=== PATIENT | female | born 1960 | race Caucasian/White ===

== ENCOUNTER → 2018-04-28 13:16 | Outpatient (CLI) | payer OTHER, SELFPAY ==
[2018-04-27 14:50] VITALS: BMI 36.1
--- NOTE | 2018-04-28 13:22 | RAD_ITS ---
STUDY: X-RAY - LEFT KNEE REASON FOR EXAM: Female, 58 years old. Left knee pain TECHNIQUE: 4 view(s) of the knee. Weight-bearing COMPARISON: None. FINDINGS: Normal visualized distal femur. Normal visualized proximal tibia and fibula. Normal proximal tibiofibular articulation. There is moderate degenerative arthrosis of the medial femorotibial compartment with moderate joint space narrowing. There is mild degenerative arthrosis of the lateral femorotibial compartment. There is mild degenerative arthrosis of the patellofemoral articulation. Mild to moderate medial compartment joint space loss The soft tissue structures are unremarkable. RAD/Knee 4 or More Views IMPRESSION: Degenerative arthrosis. Electronically Signed: Baljinder Arzate DO at 13:20 EST Tel , Service support ,
--- OUTSIDE RECORDS SUMMARY | 2018-06-10 07:06 | XMS RPT_ITS ---
:1960 Author Organization OHIP Support Name Relationship Address Phone STERLING POSADAS Unavailable [address] + [place] [address] [facility] Unavailable [address] + [place] [address] KATHARINA, STERLING Unavailable [address] + [place] [address] [facility] Unavailable [address] + [place] [address] KATHARINA STERLING Unavailable [address] + [place] [address] [facility] Unavailable [address] + [place] [address] KATHARINA STERLING Unavailable [address] + [place] [address] [facility] Unavailable [address] + [place] [address] KATHARINA STERLING Unavailable [address] + [place] [address] [facility] Unavailable [address] + [place] [address] KATHARINA STERLING Unavailable [address] + [place] [address] [facility] Unavailable [address] + [place] [address] KATHARINA STERLING Unavailable [address] + [place] [address] [facility] Unavailable [address] + [place] [address] KATHARINA STERLING Unavailable [address] + [place] [address] [facility] Unavailable [address] + [place] [address] KATHARINA, STERLING Unavailable [address] + [place] [address] [facility] Unavailable [address] + [place] [address] KATHARINA, STERLING Unavailable [address] + [place] [address] [facility] Unavailable [address] + [place] [address] KATHARINA, STERLING Unavailable [address] + [place] [address] [facility] Unavailable [address] + [place] [address] KATHARINA, STERLING Unavailable [address] + [place] [address] [facility] Unavailable [address] + [place] [address] KATHARINA, STERLING Unavailable [address] + [place] [address] [facility] Unavailable [address] + [place] [address] KATHARINA, STERLING Unavailable [address] + [place] [address] [facility] Unavailable [address] + [place] [address] Care Team Providers Name Role Phone Cherrie DO, Charo Attending Unavailable Cherrie DO, Charo Referring Unavailable Cherrie DO, Charo Consulting Unavailable DossieBatsheva D.C. Attending Unavailable DossieBatsheva D.C. Attending Unavailable DossieBatsheva D.C. Attending Unavailable Cherrie, Charo Referring Unavailable Cherrie, Charo Primary Care Unavailable DossieBatsheva D.C. Attending Unavailable Cherrie, Charo Referring Unavailable Cherrie, Charo Primary Care Unavailable ASSESSMENT, HEALTH RISK Attending Unavailable ASSESSMENT, HEALTH RISK Referring Unavailable Cherrie, Charo Primary Care Unavailable DossieBatsheva D.C. Attending Unavailable Cherrie, Charo Referring Unavailable DossieBatsheva D.C. Attending Unavailable DossieBatsheva D.C. Referring Unavailable Cherrie, Charo Primary Care Unavailable Dossie, Batsheva Mohan Attending Unavailable Cherrie, Charo Referring Unavailable Dossie, Batsheva Mohan Attending Unavailable Yamini Arango SLEEVE FIXER-C Attending Unavailable Yamini Arango NP-C Referring Unavailable Cherrie, Charo Primary Care Unavailable Dossie, Batsheva Mohan Attending Unavailable Dossie, Batsheva Mohan Attending Unavailable Cherrie, Charo Referring Unavailable Cherrie, Charo Attending Unavailable Cherrie, Charo Referring Unavailable Cherrie, Charo Primary Care Unavailable Dossie, Batsheva Mohan Attending Unavailable Cherrie, Charo Referring Unavailable PROBLEMS PROBLEMS DATE TYPE CONDITION / CODE ATTENDING STATUS SOURCE 05/19/2018 Unknown M99.05 - Dossie, Batsheva Active [facility] Hospital dysfunction of Repository pelvic region / M99.05(ICD-10) 05/19/2018 Unknown M99.01 - Dossie, Batsheva Active [facility] Hospital dysfunction of Repository cervical region / M99.01(ICD-10) 05/19/2018 Unknown M99.02 - Dossie, Batsheva Active [place] [facility] somatic Hospital dysfunction of Repository thoracic region / M99.02(ICD-10) 05/19/2018 Unknown M99.03 - Dossie, Batsheva Active [facility] somatic Hospital dysfunction of Repository lumbar region / M99.03(ICD-10) 05/19/2018 Unknown M54.16 - Dossie, Batsheva Active [place] Radiculopathy, [facility] lumbar region / Hospital M54.16(ICD-10) Repository PROCEDURES PROCEDURES No Procedure Records FoundRESULTS RESULTS CHIROPRACTIC REPORT Observed: 05/12/2018 Status: F Source: [place] 10:41 AM [facility] [address] [place] [address] OFFICE VISIT Date of Service: 05/12/18 MR#: [id number] Acct: [id number] Name: JD POSADAS Rep #: [id number] : 1960 Provider: Batsheva Charles D.C. Age/Sex: 58/F Location: [facility] [place] Status: Signed Intake Vital Signs05/12/18 Height 5 ft 8 in 05/12/18 Weight: 238 lb 05/12/18 Body Mass Index (BMI) 36.1 Intake Visit Reasons: back pain Chief Complaint: low back pain Is patient in pain?: Yes Allergies midazolam [From Versed] Allergy (Verified 02/19/17 10:24) Other codeine Adverse Reaction (Verified 11/15/14 12:40) Vomiting erythromycin base Adverse Reaction (Verified 11/15/14 12:40) Vomiting Medications No Known/Unobtainable [No Known Home Medications] 02/19/17 [History Confirmed 02/19/17] PFSH Social History Smoking Status: Never smoker HPI back pain : Chief Complaint: low back pain Visit Number: 9 Details: JD POSADAS is a 58 year old F who presents with decreased low back pain. Jd states that her pain has decreased, leaving her with a sore ache banding across the back, she is now walking with a normal gait. Jd is able to stand with no pain, although bending and twisting, along with prolonged sitting can still cause a sharp shooting pain. At night Jd complains of spasms in the back, although subside after stretching. Jd denies any numbness, tingling, or radiculopathy. Location: low back Duration: intermittent Aggravating or associated factors: bending, lifting, twisting, and prolonged sitting Relieving factors: chiro and PT Pain Quality: aching, dull, cramping, sharp Exam Musc General: Yes joint tenderness (T10,T11,L2,L3 L4, L5,L SI) and decreased ROM; no normal posture (antalgic, listing right) or normal gait (guarded) Thoracic/Lumbar Spine: thor and lumb spine abnorm to inspection (flexed right), pain with thoraco-lumbar ROM, thoraco-lumbar spasm (slightly improved) on the left greater than right, Lasegue's sign positive, paraspinal tenderness (slightly improved) on the left greater than right, thoraco-lumbar ROM limited Sacroiliac joints: on the left Office Procedures Chiropractic Treatments Procedures Manipulation: 3-4 regions (T10,L3,L5,RIL) Electrical Stimulation: 15 mins (Lumbar ) Assessment AND Plan 1. Segmental and somatic dysfunction of pelvic region M99.05 Orders Orders: 2. Segmental and somatic dysfunction of thoracic region M99.02 Orders Orders: 3. Segmental and somatic dysfunction of lumbar region M99.03 Orders Orders: 4. Radiculopathy of lumbar region M54.16 Orders Orders: Plan Detail Other Orders Orders: Additional Comments Continue care. Goals Decrease inflammation and pain Increase ability to work with less pain Follow Up 1 x week Coding Level of Care Code No Charge Diagnoses Segmental and somatic dysfunction of pelvic region M99.05 Segmental and somatic dysfunction of thoracic region M99.02 Segmental and somatic dysfunction of lumbar region M99.03 Radiculopathy of lumbar region M54.16 Additional Codes Procedures - Manipulation: 3-4 regions (33553) Procedures - Electrical Stimulation: 15 mins (46199) 05/12/18 1041 <Electronically signed by Batsheva Charles D.C.> Date Batsheva Charles D.C. Cosigner Signature: Date (if applicable) CC: CHIROPRACTIC REPORT Observed: 05/05/2018 Status: F Source: ALPHA 3:41 PM [facility] REPOS[facility] [address] [place] [address] OFFICE VISIT Date of Service: 05/05/18 MR#: [id number] Acct: [id number] Name: JD POSADAS Rep #: [id number] : 1960 Provider: Batsheva Charles D.C. Age/Sex: 58/F Location: [facility] [place] Status: Signed Intake Vital Signs05/05/18 Height 5 ft 8 in 05/05/18 Weight: 238 lb 05/05/18 Body Mass Index (BMI) 36.1 Intake Visit Reasons: back pain Chief Complaint: low back pain Is patient in pain?: Yes Allergies midazolam [From Versed] Allergy (Verified 02/19/17 10:24) Other codeine Adverse Reaction (Verified 11/15/14 12:40) Vomiting erythromycin base Adverse Reaction (Verified 11/15/14 12:40) Vomiting Medications No Known/Unobtainable [No Known Home Medications] 02/19/17 [History Confirmed 02/19/17] [facility] Social History Smoking Status: Never smoker HPI back pain : Chief Complaint: Low back pain Visit Number: 8 Details: JD POSADAS is a 58 year old F who presents with decreased low back pain. Jd states that while doing PT her pain has decreased, she is now able to walk for 30 minutes at time, and sit for a longer period of time. Today Jd rates her pain a 3/10 and describes it as a deep ache that bands across the low back. When standing her back does become slightly spastic and painful. Jd denies any numbness, tingling, or radiculopathy. She is beginning her physical therapy and will follow up with chiro as well. Location: low back Duration: constant Aggravating or associated factors: standing, walking, bending and twisting Relieving factors: chiro and PT Pain Quality: aching, dull, cramping, sharp, radiating Exam Musc General: Yes joint tenderness (T10,T11,L2,L3 L4, L5,L SI) and decreased ROM; no normal posture (antalgic, listing right) or normal gait (guarded) Thoracic/Lumbar Spine: thor and lumb spine abnorm to inspection (flexed right), pain with thoraco-lumbar ROM, thoraco-lumbar spasm on the right greater than left (upper lumbar) and on the left greater than right (piriformis), Lasegue's sign positive, paraspinal tenderness (slightly improved) on the right greater than left (upper/mid lumbar) and on the left greater than right (lower lumbar), thoraco-lumbar ROM limited Sacroiliac joints: on the left Office Procedures Chiropractic Treatments Procedures Manipulation: 3-4 regions (T10,L2,L5,LIL) Electrical Stimulation: 15 mins (Lumbar and thoracic ) Assessment AND Plan 1. Segmental and somatic dysfunction of lumbar region M99.03 Orders Orders: 2. Segmental and somatic dysfunction of thoracic region M99.02 Orders Orders: 3. Radiculopathy of lumbar region M54.16 Orders Orders: 4. Segmental and somatic dysfunction of pelvic region M99.05 Orders Orders: Plan Detail Other Orders Orders: Additional Comments Patient is showing mild improvement. Goals Decrease inflammation and pain Increase ability to work with less pain Follow Up 1 x week Coding Level of Care Code No Charge Diagnoses Segmental and somatic dysfunction of lumbar region M99.03 Segmental and somatic dysfunction of thoracic region M99.02 Radiculopathy of lumbar region M54.16 Segmental and somatic dysfunction of pelvic region M99.05 Additional Codes Procedures - Manipulation: 3-4 regions (77522) Procedures - Electrical Stimulation: 15 mins (82578) 05/05/18 1541 <Electronically signed by Batsheva Charles D.C.> Date Batsheva Charles D.C. Cosigner Signature: Date (if applicable) CC: RE-EVALUATION - PT (1) Observed: 05/04/2018 Status: F Source: ALPHA 5:06 PM [facility] REPOSITORY [facility] [place] [address] Fax REEVALUATION / MEDICARE RECERTIFICATION PHYSICAL THERAPY MR#: [id number] Acct: [id number] Name: JD POSADAS Rep #: [id number] : 1960 58 From: Marlene Alonso PT, Cert. MDT Referring Dr.: ROMEO Arango Status: REG RCR Insurance: [facility] [employer] SELF PAY INSURANCE ROMEO Sellers, It has been my pleasure to treat JD POSADAS over the last 7 visits for LUMBOSACRAL BACK PAIN. Please see the progress note below for an update on the physical therapy plan of care! Subjective: PATIENT REPORTS SHE IS DOING BETTER. ABLE TO STAND LONGER AND MOVE BETTER BUT STILL GETS A PINCH IF SHE TWISTS WRONG SOMETIMES. ABLE TO GO [employer] AND UNPACK GROCERIES BUT AVOIDED LIFTING. APPOINTMENT WITH DR. CHARLES TOMORROW. STILL OFF WORK. PATIENT REPORTS SIGNIFICANT INCREASED MOBILITY FOR 24 TO 48 HOURS AFTER EACH SESSION AND SHE FEELS THE US AND STIM REALLY ARE HELPING A LOT. STILL OFF WORK. STATES SHE ISN'T SURE SHE FEELS READY TO GO BACK TO WORK. Objective/Function: PATIENT CONTINUES TO HAVE SIGNIFICANT LUMBAR MVMT LOSS ALL PLANES. FLEX - MOD TO EVE, EXT - MOD TO EVE, RIGHT SG - MOD TO EVE AND LEFT SG - MOD. SHE CONTINUES TO HAVE POSITIVE LLE DURAL SIGN AND SHE IS UNABLE TO TRANSFER FROM SIT TO STAND WITHOUT UE ASSIST. SHE SUBJECTIVELY REPORTS MORE IMPROVEMENT THAN IS SEEN OBJECTIVELY. RIGHT LE STRENGTH 5/5 WITH MMT'ING EXCEPT HIP GRADED 4/5 AND TESTING DOES NOT INCREASE LEFT LB PAIN TODAY WHICH IS AN IMPROVEMENT. LEFT HIP 4-/5, KNEE EXT 5/5, KNEE FLEX 4/5, ANKLE DORSI FLEX 4/5. PATIENT IS DEMONSTRATING AND COMMUNICATING IMPROVED CADANCE WITH GAIT AND REPORTING SIGNIFICANTLY LESS PAIN OVER-ALL BUT WITH MODIFIED ACTIVITIES. OSWESTRY SCORE HAS NOT SIGNIFICANTLY IMRPOVED. Plan Plan: CONT PER POC AND INCORPORATE LEFT KNEE US ALONG WITH LE ROM, STRETCHING AND STRENGTHEING. PATIENT MAY BE A GOOD CANDIDATE FOR AQUATIC THERAPY AND SHE IS AGREEABLE. Goals Goal 1:: DECREASE C/O BACK AND SUDHA LE SX'S Goal Time Frame: 4-6 Weeks Goal Progress: Progressing Goal 2:: IMPROVE PERSONAL CARE, LIFTING, WALKING, SITTING, STANDING, SLEEP, SOCIAL LIFE, TRAVEL AND WORK/HOMEMAKING FUNCTION Goal Time Frame: 4-6 Weeks Goal Progress: Progressing Goal 3:: INSTRUCT IN PROPHYLAXIS Goal Time Frame: 4-6 Weeks Goal Progress: Progressing Goal 4:: DECREASE C/O LEFT KNEE PAIN Goal Time Frame: 4-6 Weeks Goal Progress: Progressing Anticipated Interventions Patient/Client Instruction: Educate patient on: Condition, Plan of Care, Risk Factors, Benefits of Fitness Program For the Purpose of:: To improve self management Therapeutic Exercise to Include: Strength training, Body mechanics, Postural training, Flexibilty training, Gait and locomotor training, In an aquatic setting, Active ROM, Dynamic Lumbar Stabilization For the Purpose of:: To decrease pain, To increase ROM, To improve muscle performance and motor function, To improve ability to perform ADL's, To increase tolerance to activity/condition/position, To improve ability of physical actions for home/community/work/leisure, To improve gait and locomotor functions TENS: Yes IF ES: Yes Cryotherapy (ice pack, ice massage): Yes Thermo therapy (hot pack): Yes Ultrasound (thermal/non thermal): Yes For the Purpose of:: To decrease pain, To decrease swelling/inflammation, To increase ROM, To improve nutrient delivery to tissue Please do not hesitate to contact me at [phone] by phone or if you have questions or concerns regarding this new plan of care! Sincerely, Marlene Alonso <Electronically signed by Marlene Alonso PT, Cert. MDT> 05/04/18 6789 CC: ROMEO Arango; Charo Grier DO WILLIAM Signed For Medicare only, by signing this I certify the plan of care. Physicians Signature Date CHIROPRACTIC REPORT Observed: 04/28/2018 Status: F Source: ALPHA 4:52 PM [facility] [address] [place] [address] OFFICE VISIT Date of Service: 04/27/18 MR#: [id number] Acct: [id number] Name: JD POSADAS Rep #: [id number] : 1960 Provider: Batsheva Charles D.C. Age/Sex: 58/F Location: [facility] Status: Signed Intake Vital Signs04/28/18 Body Mass Index (BMI) 36.1 04/27/18 Height 5 ft 8 in 04/27/18 Weight: 238 lb 04/27/18 Body Mass Index (BMI) 36.1 Intake Visit Reasons: back pain Chief Complaint: low back pain Is patient in pain?: Yes Allergies midazolam [From Versed] Allergy (Verified 02/19/17 10:24) Other codeine Adverse Reaction (Verified 11/15/14 12:40) Vomiting erythromycin base Adverse Reaction (Verified 11/15/14 12:40) Vomiting Medications No Known/Unobtainable [No Known Home Medications] 02/19/17 [History Confirmed 02/19/17] [facility] Social History Smoking Status: Never smoker HPI back pain : Chief Complaint: Low back pain Visit Number: 7 Details: JD POSADAS is a 58 year old F who presents with increased low back pain. She states that on Friday she was up and walking throughout her home with ease, although Friday after rising her pain was increased, leaving her with a heavy leg and numbness in the toes. Today Jd rates her pain a 5/10 and describes it as a deep and sharp pain banding across the low back. There is presence of a spasm radiating up the back, bilateral to the spine. Walking, bending, standing, and sitting causes increased pain. Location: low back Duration: constant Aggravating or associated factors: daily living Relieving factors: chiro Pain Quality: aching, dull, cramping, sharp, radiating Exam Musc General: Yes joint tenderness (T10,T11,L2,L3 L4, L5,L SI) and decreased ROM; no normal posture (antalgic, listing right) or normal gait (guarded) Thoracic/Lumbar Spine: thor and lumb spine abnorm to inspection (flexed right), pain with thoraco-lumbar ROM, thoraco-lumbar spasm on the left (piriformis) and on the right in the upper lumbar, in the mid lumbar and in the lower lumbar, Lasegue's sign positive, paraspinal tenderness (slightly worse) on the left in the lower lumbar, in the mid lumbar, in the upper thoracic and in the lower thoracic, thoraco-lumbar ROM limited Sacroiliac joints: on the left Neuro General: alert, awake, oriented x3, normal light touch, pain and propioception, focal motor deficits present Motor: strength abnormal (lumbar extensors Grade IV/V) Sensory Exam: no sensory deficits noted Ortho Test CERVICAL THORACIC LUMBAR Kemps: Positive, Le Valsalvas: Positive SLR: Positive, Le Braggards: Negative Office Procedures Chiropractic Treatments Procedures Manipulation: 3-4 regions (T10,L3 L5,LIL) Assessment AND Plan 1. Segmental and somatic dysfunction of pelvic region M99.05 Orders Orders: 2. Segmental and somatic dysfunction of thoracic region M99.02 Orders Orders: 3. Segmental and somatic dysfunction of lumbar region M99.03 Orders Orders: 4. Radiculopathy of lumbar region M54.16 Plan Detail Other Orders Orders: Additional Comments Recommend lumbar MRI due to rebound of pain and radiculopathy. Goals Decrease inflammation and pain Increase ability to work with less pain Follow Up 2 x week Coding Level of Care Code No Charge Diagnoses Segmental and somatic dysfunction of pelvic region M99.05 Segmental and somatic dysfunction of thoracic region M99.02 Segmental and somatic dysfunction of lumbar region M99.03 Radiculopathy of lumbar region M54.16 Additional Codes Procedures - Manipulation: 3-4 regions (03219) 04/28/18 1652 <Electronically signed by Batsheva Charles D.C.> Date Batsheva Charles D.C. Cosigner Signature: Date (if applicable) CC: KNEE 4 OR MORE Observed: 04/28/2018 Status: F Source: ALPHA VIEWS 1:20 PM [facility] Services [address] [place] [address] Knee 4 or More Views MR#: [id number] Acct: [id number] Name: JD POSADAS Rep #: [id number] : 1960 F 58 From: Baljinder Arzate DO PCP: Charo Grier DO Status: REG CLI Study: Knee 4 or More Views Date of Exam: 04/28/18 Exam# [id number] Ordering Dr: Charo Grier DO STUDY: X-RAY - LEFT KNEE REASON FOR EXAM: Female, 58 years old. Left knee pain TECHNIQUE: 4 view(s) of the knee. Weight-bearing COMPARISON: None. FINDINGS: Normal visualized distal femur. Normal visualized proximal tibia and fibula. Normal proximal tibiofibular articulation. There is moderate degenerative arthrosis of the medial femorotibial compartment with moderate joint space narrowing. There is mild degenerative arthrosis of the lateral femorotibial compartment. There is mild degenerative arthrosis of the patellofemoral articulation. Mild to moderate medial compartment joint space loss The soft tissue structures are unremarkable. RAD/Knee 4 or More Views IMPRESSION: Degenerative arthrosis. Electronically Signed: Baljinder Arzate DO at 13:20 EST Tel , Service support , CC: Charo Grier DO Induction Coordination Power Engineer: Signed CHIROPRACTIC REPORT Observed: 04/27/2018 Status: F Source: ALPHA 8:12 AM [facility] [address] [place] [address] OFFICE VISIT Date of Service: 04/20/18 MR#: [id number] Acct: [id number] Name: JD POSADAS Rep #: [id number] : 1960 Provider: Batsheva Charles D.C. Age/Sex: 58/F Location: [facility] Status: Signed Intake Vital Signs04/20/18 Height 5 ft 8 in 04/20/18 Weight: 238 lb 04/20/18 Body Mass Index (BMI) 36.1 Intake Visit Reasons: back pain Chief Complaint: low back pain Is patient in pain?: Yes Allergies midazolam [From Versed] Allergy (Verified 02/19/17 10:24) Other codeine Adverse Reaction (Verified 11/15/14 12:40) Vomiting erythromycin base Adverse Reaction (Verified 11/15/14 12:40) Vomiting Medications No Known/Unobtainable [No Known Home Medications] 02/19/17 [History Confirmed 02/19/17] PFSH Social History Smoking Status: Never smoker HPI back pain: Chief Complaint: Low back pain Visit Number: 6 Details: JD POSADAS is a 58 year old F who presents with decreased low back pain. The patient was given a steroid, which she believes has caused decreased pain. Today Jd rates her pain a 3/10 and describes it as a tight and deep ache that bands across the low back. Walking, bending, lifting, and prolonged sitting causes increased pain, although she denies any numbness, tingling, or radiculopathy Location: low back pain Duration: constant Aggravating or associated factors: bending, lifting, twisting, standing and prolonged sitting Relieving factors: chiro and steroids Pain Quality: aching, dull, cramping, sharp Exam Musc General: Yes joint tenderness (T10,T11,L2,L3 L4, L5,L SI) and decreased ROM; no normal posture (antalgic, listing right) or normal gait (guarded) Thoracic/Lumbar Spine: thor and lumb spine abnorm to inspection (flexed right), pain with thoraco-lumbar ROM, thoraco-lumbar spasm bilaterally in the lower lumbar, in the mid lumbar, in the upper lumbar and in the lower thoracic, Lasegue's sign positive, paraspinal tenderness (slightly improved) on the left in the mid lumbar, in the lower lumbar, in the upper thoracic and in the lower thoracic, thoraco-lumbar ROM limited Sacroiliac joints: on the left Office Procedures Chiropractic Treatments Procedures Manipulation: 3-4 regions (T10,L2, L5,LIL) Electrical Stimulation: 15 mins (lumbar ) Assessment AND Plan 1. Segmental and somatic dysfunction of pelvic region M99.05 Orders Orders: 2. Segmental and somatic dysfunction of thoracic region M99.02 Orders Orders: 3. Segmental and somatic dysfunction of lumbar region M99.03 Orders Orders: 4. Radiculopathy of lumbar region M54.16 Orders Orders: Plan Detail Other Orders Orders: Additional Comments Discussed comanaging with PT so patient can begin to stretch and strengthen low back and core. Goals Decrease inflammation and pain Increase ability to work with less pain Follow Up 1x/wk/3wks Coding Level of Care Code No Charge Diagnoses Segmental and somatic dysfunction of pelvic region M99.05 Segmental and somatic dysfunction of thoracic region M99.02 Segmental and somatic dysfunction of lumbar region M99.03 Radiculopathy of lumbar region M54.16 Additional Codes Procedures - Manipulation: 3-4 regions (62830) Procedures - Electrical Stimulation: 15 mins (23938) 04/27/18 0812 <Electronically signed by Batsheva Charles D.C.> Date Batsheva Charles D.C. Cosigner Signature: Date (if applicable) CC: INITAL EVALUATION (1) Observed: 04/21/2018 Status: F Source: [place] - PT 1:22 PM [facility] REPOSITORY [facility] [address] [place] [address] Fax REHABILITATION SERVICES INITIAL EVALUATION MR#: [id number] Acct: [id number] Name: JD POSADAS Rep #: [id number] : 1960 58 From: Marlene Alonso PT, Cert. MDT Referring Dr.: ROMEO Arango Status: REG RCR Insurance: [facility] [employer] SELF PAY INSURANCE Patient's Visit Information JD POSADAS is a 58 year old F referred to Physical Therapy by ROMEO Sellers with a diagnosis of LUMBOSACRAL BACK PAIN. Date of Evaluation: 04/17/18 Physical Therapist: Marlene Alonso - Visit Plan Frequency: 2-3x /Week Duration: 4-6 Weeks Plan: POSTURE CORRECTION/STRENGTHENING, INSTRUCTION IN APPROPRIATE BODY MECHANICS AND ACTIVITY MODIFICATIONS. DLS STARTING WITH A NEUTRAL SPINE PROGRESSING ROM TOLERATED. SUDHA LE ROM, STRETCHING AND STRENGTHENING. HEP INSTRUCTION. 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 INVOLVES A LOT OF WALKING AND GETTING UP AND DOWN FROM SITTING. SOME BENDING AND REACHING. CURRENTLY HAS BEEN OFF WORK ALL WEEK FOR THIS AND IS GOING TO FOLLOW UP WITH DR. CHARLES FRIDAY WITH TENATIVE RTW NEXT FRIDAY. 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 Present symptoms: LOW BACK PAIN LEFT GREATER THAN RIGHT WITH PAIN RADIATING UP LEFT BACK DESCRIBED MUSCULAR PAIN. INTERMITTEN SUDHA THIGH PAIN WHEN BACK SPASMS. PATIENT DENIES SUDHA LE NUMBNESS OR TINGLING. Present since: Friday04/13/18. Pain Scale: WORST 7/10, LEAST 2/10. Currently: 4/10. PATIENT REPORTS SHE IS IMPROVING SLOWLY AND IS MAYBE 30% BETTER SINCE FRIDAY. Commenced as a result of: NO APPARENT REASON. JUST ROLLED OVER AND LIFTED UP TO GET OUT OF BAD AND SHE FELT IT SPASM AND IT PROGRESSED FROM THERE. PATIENT REPORTS SHE WAS ACTUALLY FEELING SOME LOW BACK DISCOMFORT AT WORK LAST WEEK AND SHE REPORTS A FEW TIMES SHE STOOD UP AT WORK LAST WEEK AND HER RIGHT HIP LOCKED UP. HAS HAPPENED WITH LEFT HIP IN PAST BUT LAST WEEK IT WAS RIGHT HIP. Symptoms at onset: LOW BACK. Worse: CHANGING POSITION, PROLONGED STANDING MORE THAN ABOUT 10 MIN, SUDDEN MVMTS JARRING BACK, BENDING, STEPS, LIFTING LEFT LE, GETTING IN/OUT OF CAR, TRYING TO SHOWER, WALKING, SITTING IN CHAIRS OTHER THAN RECLINER. Better: MOTRIN, ICE, HEAT, RECLINER, LYING IN EITHER SDLYING WITH PILLOW BETWEEN KNEES AND BEHIND BACK. Disturbed sleep: YES. Previous history/Previous treatment: HX OF JUST MUSCULAR ISSUES WITH LOW BACK A LONG TIME AGO. JUL 2015 COUGHING HURT HER BACK AND SHE WAS TREATED BY DR. CHARLES BUT THAT WAS HIRING IN HER BACK. NO EFRAIN'S. NO BACK SURGERY. PATIENT REPORTS SHE HAS SEEN DR. CHARLES OFF AND ON OVER THE PAST TWO YEARS OR SO NEEDED FOR LOW BACK MUSCULAR TIGHTNESS. ONLY ABOUT 5 CHIROPRACTIC VISITS OVER THIS TIME. THIS EPISODE HER PAIN STARTED FRIDAY AND SHE WENT TO DR. CHARLES FRIDAY, FRIDAY AND FRIDAY. BACK INJURY AT WORK IN 2004 TREATED WITH PHYSICAL THERAPY. Coughing/sneezing/straining: POSITIVE. Gait: PATIENT REPORTS SHE CURRENTLY CAN NOT WALK QUICKLY AND SHE LEANS TO THE RIGHT FAVORING LEFT LE. I'M NOT STRAIGHT UP AND DOWN PATIENT REPORTS SHE IS ALWAYS LEANING FORWARD. Difficulty initiating urinatin: NO. Accidents: NO. Unexplained weight loss: NO. Imaging: LUMBAR X-RAY 2 DAYS AGO SHOWING DECREASED DISC SPACE L5S1 ADN L4 L5 WITH FACET ARTHROSIS L45 AND L5S1. MILD DEGENERATIVE CHANGES. PMH: UNREMARKABLE. Recent major surgery: UNREMARKABLE. PLOF (Prior Level of Function): UNLIMITED. OTHER: SAW YAMINI ARANGO YESTERDAY WITH MEDROL DOSE TORI PRESCRIBED AND PATIENT PLANS TO PICK IT UP TODAY. - Objective Sitting/Standing Posture: POOR. SHIFTED RIGHT WITH RIGHT SCAPULAR WINGING. INCREASED WEIGHT BEARING ON RIGHT LE COMPARED TO LEFT. Relevant shift: YES. Active Correction of posture: WORSE. Other Observations: PATIENT IS UNABLE TO TRANSFER FROM SIT TO STAND WITHOUT UE ASSIST. ALL MVMTS ARE SLOW AND GUARDED. GAIT IS SLOW AND GUARDED WITH RIGHT LATERAL SHIFT AND LIMPING ON LEFT LE. Motor deficit: RIGHT LE STRENGTH 5/5 WITH MMT'ING EXCEPT HIP GRADED 4-/5 AND TESTING INCREASES LEFT LB PAIN. LEFT HIP 3+/5, KNEE EXT 4/5, KNEE FLEX 4/5, ANKLE DORSI FLEX 4/5. Sensory deficit: NO. ROM deficit: TIGHTNESS SUDHA HS'S LEFT > RIGHT AND TIGHT SUDHA GASTROC SOLEUS COMPLEX'S ALONG WITH HIP FLEXORS. Reflexes: RIGHT QUAD AND ACHILLES 2/3, LEFT 1/3. Dural Signs: NEGATIVE RIGHT LE AND POSITIVE LLE. Lumbar mvmt loss: flex - EVE. ext - EVE. R SG - MOD. L SG - EVE. Core strength: POOR. Palpation: PATIENT IS VERY TENDER WITH LIGHT PALPATION OF THE ENTIRE LUMBAR SPINE TO S1 BUT LESS OVER THE SACRUM. SHE IS NOT TENDER IN THE THORACIC SPINE AND DENIES ANY FALLS. SHE IS TENDER IN THE LEFT BUTTOCK REGION BUT OTHERWISE NOT PELVIC, HIP OR THIGH PAIN. - Goals Goal 1:: DECREASE C/O BACK AND SUDHA LE SX'S Goal Time Frame: 4-6 Weeks Goal 2:: IMPROVE PERSONAL CARE, LIFTING, WALKING, SITTING, STANDING, SLEEP, SOCIAL LIFE, TRAVEL AND WORK/HOMEMAKING FUNCTION Goal Time Frame: 4-6 Weeks Goal 3:: INSTRUCT IN PROPHYLAXIS Goal Time Frame: 4-6 Weeks - Rehabilitation Potential Rehabilitation Potential: Fair - Anticipated Interventions Patient/Client Instruction: Educate patient on: Condition, Plan of Care, Risk Factors, Benefits of Fitness Program For the Purpose of:: To improve self management Therapeutic Exercise to Include: Strength training, Body mechanics, Postural training, Flexibilty training, Gait and locomotor training, In an aquatic setting, Active ROM, Dynamic Lumbar Stabilization For the Purpose of:: To decrease pain, To increase ROM, To improve muscle performance and motor function, To improve ability to perform ADL's, To increase tolerance to activity/condition/position, To improve ability of physical actions for home/community/work/leisure, To improve gait and locomotor functions TENS: Yes IF ES: Yes Cryotherapy (ice pack, ice massage): Yes Thermo therapy (hot pack): Yes Ultrasound (thermal/non thermal): Yes For the Purpose of:: To decrease pain, To decrease swelling/inflammation, To increase ROM, To improve nutrient delivery to tissue Thank you for the opportunity to evaluate your patient. For Medicare and Medicare HMO plans, please review the plan of care and approve it. It will need to be FAXED BACK to us at [phone] for Medicare purposes. Please let me know if there are questions or concerns regarding this plan of care. Physician Signature: Date: <Electronically signed by Marlene Alonso PT, Cert. MDT> 04/21/18 1322 CC: ROMEO Arango; Charo Grier DO WILLIAM Signed For Medicare only, by signing this I certify the plan of care. Physicians Signature Date CHIROPRACTIC REPORT Observed: 04/16/2018 Status: F Source: ALPHA 1:06 PM [facility] [address] [place] [address] OFFICE VISIT Date of Service: 04/16/18 MR#: [id number] Acct: [id number] Name: JD POSADAS Rep #: [id number] : 1960 Provider: Batsheva Charles D.C. Age/Sex: 58/F Location: [facility] [place] Status: Signed Intake Vital Signs04/16/18 Height 5 ft 8 in 04/16/18 Weight: 238 lb 04/16/18 Body Mass Index (BMI) 36.1 Intake Visit Reasons: back pain Chief Complaint: low back pain Is patient in pain?: Yes Allergies midazolam [From Versed] Allergy (Verified 02/19/17 10:24) Other codeine Adverse Reaction (Verified 11/15/14 12:40) Vomiting erythromycin base Adverse Reaction (Verified 11/15/14 12:40) Vomiting Medications No Known/Unobtainable [No Known Home Medications] 02/19/17 [History Confirmed 02/19/17] PFSH Social History Smoking Status: Never smoker HPI back pain: Chief Complaint: low back pain Visit Number: 5 Details: JD POSADAS is a 58 year old F who presents with low back pain. She states that her pain is persistant, leaving her with a tight and sharp ache that bands across the low back. Daily living causes increased pain, specifically banding up and down the back. Today Jd rates her pain a 5/10 and describes it as a deep spasm that can radiate up the back. Jd denies any numbness, tingling, or radiculopathy. Location: low back Duration: constant Aggravating or associated factors: daily living Relieving factors: chiro Pain Quality: aching, dull, cramping, sharp, radiating Exam Musc General: Yes joint tenderness (T10,T11,L2,L3 L4, L5,L SI) and decreased ROM; no normal posture (antalgic, listing right) or normal gait (guarded) Thoracic/Lumbar Spine: thor and lumb spine abnorm to inspection (flexed right), pain with thoraco-lumbar ROM with lateral flexion to the right, with rotation to the right, other, with rotation to the left, with lateral flexion to the left and with forward flexion, thoraco-lumbar spasm on the left greater than right, Lasegue's sign positive on the left, paraspinal tenderness on the left greater than right, thoraco-lumbar ROM limited with lateral flexion to the right, with rotation to the left, with lateral flexion to the left, with forward flexion and with rotation to the right Sacroiliac joints: on the left Office Procedures Chiropractic Treatments Procedures Manipulation: 3-4 regions (T10,L2, L5,LIL) Electrical Stimulation: 15 mins (thoracic and lumbar ) Assessment AND Plan 1. Segmental and somatic dysfunction of pelvic region M99.05 Orders Orders: 2. Segmental and somatic dysfunction of lumbar region M99.03 Orders Orders: 3. Segmental and somatic dysfunction of thoracic region M99.02 Orders Orders: 4. Radiculopathy of lumbar region M54.16 Orders Orders: Plan Detail Other Orders Orders: Additional Comments Recommend follow up with PCP for med consult. Suggest lumbar MRI should pain persist. Goals Decrease inflammation and pain Increase ability to work with less pain Follow Up 2 x week Coding Level of Care Code No Charge Diagnoses Segmental and somatic dysfunction of pelvic region M99.05 Segmental and somatic dysfunction of lumbar region M99.03 Segmental and somatic dysfunction of thoracic region M99.02 Radiculopathy of lumbar region M54.16 Additional Codes Procedures - Manipulation: 3-4 regions (54673) Procedures - Electrical Stimulation: 15 mins (25776) 04/16/18 1306 <Electronically signed by Batsheva Charles D.C.> Date Batsheva Charles D.C. Cosigner Signature: Date (if applicable) CC: CHIROPRACTIC REPORT Observed: 04/15/2018 Status: F Source: ALPHA 9:47 AM [facility] [address] [place] [address] OFFICE VISIT Date of Service: 04/15/18 MR#: [id number] Acct: [id number] Name: JD POSADAS Rep #: [id number] : 1960 Provider: Batsheva Charles D.C. Age/Sex: 58/F Location: [facility] [place] Status: Signed Intake Vital Signs04/15/18 Height 5 ft 8 in 04/15/18 Weight: 238 lb 04/15/18 Body Mass Index (BMI) 36.1 Intake Visit Reasons: back pain Chief Complaint: low back pain Is patient in pain?: Yes Allergies midazolam [From Versed] Allergy (Verified 02/19/17 10:24) Other codeine Adverse Reaction (Verified 11/15/14 12:40) Vomiting erythromycin base Adverse Reaction (Verified 11/15/14 12:40) Vomiting Medications No Known/Unobtainable [No Known Home Medications] 02/19/17 [History Confirmed 02/19/17] PFSH Social History Smoking Status: Never smoker HPI back pain: Chief Complaint: Low back pain Visit Number: 4 Details: JD POSADAS is a 58 year old F who presents with slightly decreased low back pain. She states that her spasms are not as painful. although they are still present. Today Jd rates her pain a 5/10 and describes it as a deep and sharp ache that bands across the low back, and up into the mid back. Daily living still causes increased pain, although when rolling in bed the pain is not as intense. Jd denies any numbness, or tingling, Location: low back Duration: constant Aggravating or associated factors: ADLs Relieving factors: chiro Pain Quality: aching, dull, cramping, sharp, radiating Exam Musc General: Yes joint tenderness (T10,T11,L2,L3 L4, L5,L SI) and decreased ROM; no normal posture (antalgic, listing right) or normal gait (guarded) Thoracic/Lumbar Spine: thor and lumb spine abnorm to inspection (flexed right), pain with thoraco-lumbar ROM, thoraco-lumbar spasm, Lasegue's sign positive, paraspinal tenderness, thoraco-lumbar ROM limited Sacroiliac joints: on the left Office Procedures Chiropractic Treatments Procedures Manipulation: 3-4 regions (T10,L2,L5,LIL) Electrical Stimulation: 15 mins (thoracic and lumbar ) Traction, Mechanical: Yes Details: Traction: lumbar, 15min Assessment AND Plan 1. Segmental and somatic dysfunction of pelvic region M99.05 Orders Orders: 2. Segmental and somatic dysfunction of thoracic region M99.02 Orders Orders: 3. Segmental and somatic dysfunction of lumbar region M99.03 Orders Orders: Plan Detail Other Orders Orders: Goals Decrease inflammation and pain Increase ability to work with less pain Follow Up 2 x week Coding Level of Care Code No Charge Diagnoses Segmental and somatic dysfunction of pelvic region M99.05 Segmental and somatic dysfunction of thoracic region M99.02 Segmental and somatic dysfunction of lumbar region M99.03 Additional Codes Procedures - Manipulation: 3-4 regions (90988) Procedures - Electrical Stimulation: 15 mins (86140) Procedures - Traction, Mechanical: Yes (81787) 04/15/18 0947 <Electronically signed by Batsheva Charles D.C.> Date Batsheva Charles D.C. Cosigner Signature: Date (if applicable) CC: CHIROPRACTIC REPORT Observed: 04/14/2018 Status: F Source: ALPHA 3:46 PM [facility] [address] [place] [address] OFFICE VISIT Date of Service: 04/14/18 MR#: [id number] Acct: [id number] Name: JD POSADAS Rep #: [id number] : 1960 Provider: Batsheva Charles D.C. Age/Sex: 58/F Location: [facility] [place] Status: Signed Intake Vital Signs04/14/18 Height 5 ft 8 in 04/14/18 Weight: 238 lb 04/14/18 Body Mass Index (BMI) 36.1 Intake Visit Reasons: low back pain Chief Complaint: low back pain Is patient in pain?: Yes Allergies midazolam [From Versed] Allergy (Verified 02/19/17 10:24) Other codeine Adverse Reaction (Verified 11/15/14 12:40) Vomiting erythromycin base Adverse Reaction (Verified 11/15/14 12:40) Vomiting Medications No Known/Unobtainable [No Known Home Medications] 02/19/17 [History Confirmed 02/19/17] PFSH Social History Smoking Status: Never smoker HPI low back pain : Chief Complaint: Low back pain Visit Number: 3 Details: JD POSADAS is a 58 year old F who presents with severe low back pain. She states that last week while working her low back became sore and achy, although Friday she rolled over in bed causing a severe spasm banding across the low back. Today Jd rates her pain a 7/10 and describes it as a tight sharp ache that bands across the low back, and into the L buttock. Daily living causes increased pain, although laying on the L side causes a slight decrease in pain. Jd denies any numbness, tingling, or radiculopathy. Onset: 04/11/18 Location: low back Duration: constant Aggravating or associated factors: daily living Relieving factors: laying on L side Pain Quality: aching, dull, cramping, sharp Exam Musc General: Yes joint tenderness (T10,T11,L2,L3 L4, L5,L SI) and decreased ROM; no normal posture (antalgic, listing right) or normal gait (guarded) Thoracic/Lumbar Spine: thor and lumb spine abnorm to inspection (flexed right), pain with thoraco-lumbar ROM with forward flexion, with lateral flexion to the left, with rotation to the right, with rotation to the left and other, thoraco-lumbar spasm bilaterally in the mid thoracic, in the lower thoracic and in the upper lumbar and on the left greater than right (mid-lower lumbar, left piriformis, left glute), Lasegue's sign positive bilaterally, paraspinal tenderness bilaterally in the lower thoracic, in the upper lumbar and in the mid lumbar and on the left greater than right (lower lumbar), thoraco-lumbar ROM limited with forward flexion, with lateral flexion to the left, with rotation to the left and with rotation to the right Sacroiliac joints: on the left tender to palpation Neuro General: alert, awake, oriented x3, gait abnormal, normal light touch, pain and propioception, no focal motor deficits, deep tendon reflexes 2+ bilaterally (bilateral lower extremity) Ortho Test CERVICAL THORACIC Penny: Negative LUMBAR Kemps: Positive, Right, Le Valsalvas: Positive SLR: Negative Iliac Compression: Positive, Le Lumbar Series: +Minors sign Office Procedures Chiropractic Treatments Procedures Manipulation: 3-4 regions (T10,L2,L5,LIL) Electrical Stimulation: 15 mins (Lumbar ) Assessment AND Plan 1. Segmental and somatic dysfunction of thoracic region M99.02 Orders Orders: 2. Segmental and somatic dysfunction of lumbar region M99.03 Orders Orders: 3. Radiculopathy of lumbar region M54.16 Orders Orders: 4. Segmental and somatic dysfunction of pelvic region M99.05 Plan Detail Other Orders Orders: Additional Comments Xrays revealed decreased disc height at L5-S1. Goals Decrease inflammation and pain Increase ability to work with less pain Follow Up 3x/wk Coding Level of Care Code Off vis,est,level 1 Diagnoses Segmental and somatic dysfunction of thoracic region M99.02 Segmental and somatic dysfunction of lumbar region M99.03 Radiculopathy of lumbar region M54.16 Segmental and somatic dysfunction of pelvic region M99.05 Additional Codes Procedures - Manipulation: 3-4 regions (77613) Procedures - Electrical Stimulation: 15 mins (88425) 04/14/18 1546 <Electronically signed by Batsheva Charles D.C.> Date Batsheva Charles D.C. Cosigner Signature: Date (if applicable) CC: CBC, EMPLOYEE Collected: 02/24/2018 Status: F Source: JB 8:32 AM [facility] [place] REPOSITORY TYPE CODE TESTS RESULT OUT OF RANGE REFERENCE UNITS LAB L100.1000 4.4-11.0 K/mm3 Normal WBC 6.2 LAB L100.1200 4.2-5.4 M/mm3 Normal RBC 4.66 LAB L100.1300 12.0-15.0 g/dl Normal HGB 13.9 LAB L100.1400 37-47 % Normal HCT 41.0 LAB L100.1500 81-99 fL Normal MCV 88.0 LAB L100.1600 27.0-32.0 pg Normal MCH 29.8 LAB L100.1700 32-36 g/gl Normal MCHC 33.9 LAB L100.1810 11.6-14.6 % Normal RDW CV 13.5 LAB L100.1820 35.1-43.9 fl Normal RDW SD 43.4 LAB L100.1900 150-450 K/mm3 Normal PLT 295 LAB L100.2000 6.2-12.0 fl Normal MPV 8.8 LAB L100.2110 47-70 % Normal NEUT% 62.3 LAB L100.2210 19-41 % Normal LY% 23.4 LAB L100.2310 0-10 % High MONO% 11.7 LAB L100.2410 0-5 % Normal EO% 2.1 LAB L100.2510 0-1 % Normal BASO% 0.3 LAB L100.2620 2.0-7.7 X10 3/uL Normal Absolute Neut 3.8 LAB L100.2720 0.83-4.51 X10 3/ul Normal Absolute Lymph 1.44 Performed By: #### L100.0200 #### [facility] [address] [place], [place], [address] EMPLOYEE PROFILE Collected: 02/24/2018 Status: F Source: ALPHA 8:32 AM [facility] REPOSITORY TYPE CODE TESTS RESULT OUT OF RANGE REFERENCE UNITS LAB L501.0100 74-106 mg/dL Normal GLU 103 Result Comment: Fasting Glucose result from 100 to 125 mg/dL suggests IMPAIRED HOMEOSTASIS per A.D.A. criteria. Please note revised GLUCOSE reference range effective 2017. LAB L501.1000 7-18 mg/dL Normal BUN 17 LAB L501.1100 0.55-1.02 mg/dL Normal CREAT,SERUM 0.73 Result Comment: The validity of the calculated GFR AND GFRAA in patients over 70 years has not been determined. Clinical correlation is essential. LAB L501.1110 >60 mL/min Normal EST GFR 88 Result Comment: Non- GFR Calc LAB L501.1115 >60 mL/min Normal EST GFR - AA 106 Result Comment: GFR Calc LAB L501.1300 10-20 RATIO High BUN/CRE 23.3 LAB L501.1400 2.6-6.0 mg/dL Normal URIC 4.6 Result Comment: The drugs N-Acetylcysteine and Metamizole may falsely depress this assay. LAB L501.1500 6.4-8.2 g/dL High T PROT 8.4 LAB L501.1800 3.2-5.0 g/dL Normal ALB 4.0 LAB L501.1950 2.2-4.2 g/dL High GLOB 4.4 LAB L501.2000 0.9-2.4 RATIO Normal A/G 0.9 LAB L501.2200 8.5-10.1 mg/dL Low CA 8.4 LAB L501.2300 2.5-4.9 mg/dL Normal PHOS 3.7 LAB L501.4100 15-37 U/L Normal AST 29 LAB L501.4305 45-117 U/L Normal ALK P 72 LAB L501.4405 13-56 U/L Normal ALT 51 LAB L501.4600 0.20-1.00 mg/dL Normal T BILI 0.50 LAB L501.4700 0.00-0.30 mg/dL Normal D BILI 0.14 LAB L501.4900 200 mg/dL Normal CHOL 189 Result Comment: <200 mg/dL Desirable 200-240 mg/dL Borderline >240 mg/dL High Risk LAB L501.5000 mg/dL Normal TRIG 83 Result Comment: The drugs N-Acetylcysteine and Metamizole may falsely depress this assay. Serum Triglycerides Reference Interval Normal <150 mg/dL Borderline high 150 - 199 mg/dL High 200 - 499 mg/dL Very High > or = 500 mg/dL LAB L501.5300 136-145 mmol/L Normal NA 137 LAB L501.5600 3.5-5.1 mmol/L Normal K 4.0 LAB L501.5900 98-107 mmol/L Normal CL 105 LAB L501.6100 21.0-32.0 mmol/L Normal CO2 23.0 LAB L501.6200 5-15 Normal 9 GAP LAB L501.6400 mg/dL Normal HDL 48 Result Comment: The drugs N-Acetylcysteine and Metamizole may falsely depress this assay. Reference Range HDL <40 mg/dL Low HDL Cholesterol HDL >or= 60 mg/dL High HDL Cholesterol LAB L501.6475 Normal CHOL:HDL 3.90 LAB L501.6500 0-130 mg/dL Normal LDL 124 LAB L501.6600 5-40 mg/dL Normal VLDL 17 LAB L504.2610 84-246 U/L Normal LDH 191 Performed By: #### L500.2900 #### [facility] [address], [address] NICOTINE URINE DRUG Collected: 02/24/2018 Status: F Source: JB SCREEN 8:32 AM [facility] [place] REPOSITORY TYPE CODE TESTS RESULT OUT OF RANGE REFERENCE UNITS LAB L505.6250 TO BE Normal CONFIRMED Result Comment: CONFIRMATORY TESTING FOR ALL POSITIVE URINE DRUG SCREEN RESULTS WILL ONLY BE SENT OUT UPON PHYSICIAN ORDER. The results of Urine Drug Screen methods provide only preliminary analytical test results. A more specific alternate chemical method must be used in order to obtain a confirmed analytical result. Gas chromatography/mass spectrometery (GC/MS) is the preferred confirmatory method. Clinical consideration and professional judgement should be applied to any drug of abuse test result, particularly when preliminary positive results are used. LAB L505.6270 <200 ng/mL Normal COT DRG Negative SCREEN Result Comment: Cotinine is the first-stage metabolite of Nicotine. Performed By: #### L505.6240 #### [facility] [address] [place], [place], [address] URINALYSIS, EMPLOYEE Collected: 02/24/2018 Status: F Source: ALPHA 8:32 AM [facility] TYPE CODE TESTS RESULT OUT OF RANGE REFERENCE UNITS LAB L400.3000 Yellow COLOR Normal Yellow LAB L400.3050 Clear Normal CLARITY Clear LAB L400.3200 Normal mg/dl Normal GLUCOSE, UR Normal LAB L400.3300 Negative mg/dL Normal BILIRUBIN URINE Negative LAB L400.3400 Negative mg/dl Normal KETONE UR Negative LAB L400.3465 1.002-1.030 Normal SP.GR. DIPSTX 1.005 LAB L400.3550 5.0 - 8.0 pH UR Normal 6.5 LAB L400.3600 Negative mg/dl PROT Normal DIPSTX Negative LAB L400.3700 Normal mg/dl Normal UROBILI Normal LAB L400.3750 Negative Normal NITRITE UR Negative LAB L400.3780 Negative /ul High 10 OCCULT BLOOD-UR LAB L400.3800 Negative /ul High LEUK 25 ESTERASE Performed By: #### L400.0100 #### [facility] [place], [place], [address] CHIROPRACTIC REPORT Observed: 12/08/2017 Status: F Source: ALPHA 11:19 AM [facility] [address] [place] [id number] OFFICE VISIT Date of Service: 12/02/17 MR#: [id number] Acct: [id number] Name: JD POSADAS Rep #: [id number] : 1960 Provider: Batsheva Charles D.C. Age/Sex: 57/F Location: [facility] [place] Status: Signed Intake Vital Signs12/02/17 Height 5 ft 8 in 12/02/17 Weight: 238 lb 12/02/17 Body Mass Index (BMI) 36.1 Intake Visit Reasons: back pain Chief Complaint: back pain Is patient in pain?: Yes Allergies midazolam [From Versed] Allergy (Verified 02/19/17 10:24) Other codeine Adverse Reaction (Verified 11/15/14 12:40) Vomiting erythromycin base Adverse Reaction (Verified 11/15/14 12:40) Vomiting Medications No Known/Unobtainable [No Known Home Medications] 02/19/17 [History Confirmed 02/19/17] PFSH Social History Smoking Status: Never smoker HPI back pain : Chief Complaint: neck and low back pain Visit Number: 2 Details: JD POSADAS is a 57 year old F who presents with neck and low back pain. She states that over the past two weeks her pain has increased causing tightness and tension in the neck. 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 Today the patient rates her pain a 4/10, she also complains of low back tightness and achiness. The low back pain increases with bending and prolonged sitting, although she denies any numbness, tingling, or radiculopathy. Onset: 11/17/17 Location: neck and low back Duration: constant Aggravating or associated factors: rotation of the neck, driving, bending and prolonged sitting Relieving factors: chiro Pain Quality: aching, dull, cramping, sharp Exam Musc General: Yes normal posture, normal gait and joint tenderness (C4, C5, C6, T2, T3, T10, L4, L5) Cervical Spine: loss of normal cervical lordosis (anterior head carriage), pain with cervical ROM with lateral flexion to right and with lateral flexion to left, cervical spasm bilateral lateral: trapezius right greater than left medial: trapezius Thoracic/Lumbar Spine: thoracic and lumbar spine normal to inspection, pain with thoraco-lumbar ROM with forward flexion, with lateral flexion to the left and with lateral flexion to the right, thoraco-lumbar spasm bilaterally in the lower lumbar and on the right in the mid thoracic Office Procedures Chiropractic Treatments Procedures Manipulation: 3-4 regions (C4, C6, T2, T10, L5) Electrical Stimulation: 15 mins Location: Lumbar Traction, Mechanical: Yes Details: Lumbar traction 15 min Assessment AND Plan Problems 1. Segmental and somatic dysfunction of cervical region M99.01 2. Segmental and somatic dysfunction of thoracic region M99.02 3. Segmental and somatic dysfunction of lumbar region M99.03 4. Radiculopathy of lumbar region M54.16 Plan Follow up PRN. Orders Orders: Plan Detail Goals Decrease inflammation and pain Increase ability to work with less pain Follow Up PRN Coding Level of Care Code No Charge Diagnoses Segmental and somatic dysfunction of cervical region M99.01 Segmental and somatic dysfunction of thoracic region M99.02 Segmental and somatic dysfunction of lumbar region M99.03 Radiculopathy of lumbar region M54.16 Additional Codes Procedures - Manipulation: 3-4 regions (99955) Procedures - Electrical Stimulation: 15 mins (17961) Procedures - Traction, Mechanical: Yes (70030) 12/08/17 1119 <Electronically signed by Batsheva Charles D.C.> Date Batsheva Charles D.C. Cosigner Signature: Date (if applicable) CC: CHIROPRACTIC REPORT Observed: 07/22/2017 Status: F Source: JB 1:10 PM [facility] [address] [place], [place] [id number] OFFICE VISIT Date of Service: 07/21/17 MR#: [id number] Acct: [id number] Name: JD POSADAS Rep #: [id number] : 1960 Provider: Batsheva Dossi, D.C. Age/Sex: 57/F Location: [facility] [place] Status: Signed Intake Vital Signs07/21/17 Height 5 ft 8 in 07/21/17 Weight: 238 lb 2 oz 07/21/17 Body Mass Index (BMI) 36.1 Intake Visit Reasons: back pain Is patient in pain?: Yes Allergies midazolam [From Versed] Allergy (Verified 02/19/17 10:24) Other codeine Adverse Reaction (Verified 11/15/14 12:40) Vomiting erythromycin base Adverse Reaction (Verified 11/15/14 12:40) Vomiting Medications No Known/Unobtainable [No Known Home Medications] 02/19/17 [History Confirmed 02/19/17] PFSH Social History Smoking Status: Never smoker HPI back pain : Chief Complaint: back pain Visit Number: 1 Referral source: previous patient Details: JD POSADAS is a 57 year old F who presents with L sided neck and low back pain. 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 Today the patient rates her pain a 3/10 and describes it as a deep tight ache that comes and goes, bending lifting, twisting and reaching all cause increased pain. Jd denies any numbness or tingling. Location: L sided neck and low back Duration: frequent Aggravating or associated factors: bending, lifting, sitting, reaching and twisting Relieving factors: chiro Pain Quality: aching, dull Exam Musc General: Yes normal posture, normal gait and joint tenderness (C4, C5, C6, T2, T3, T10, L4, L5) Cervical Spine: loss of normal cervical lordosis (anterior head carriage), pain with cervical ROM with lateral flexion to right and with lateral flexion to left, cervical spasm bilateral lateral: trapezius Thoracic/Lumbar Spine: thoracic and lumbar spine normal to inspection, pain with thoraco-lumbar ROM with forward flexion, with lateral flexion to the left and with lateral flexion to the right, thoraco-lumbar spasm bilaterally in the lower lumbar Office Procedures Chiropractic Treatments Procedures Manipulation: 3-4 regions (C5, T2, T10, L5) Electrical Stimulation: 15 mins Location: cervical and lumbar Traction, Mechanical: Yes Details: Traction: lumbar, 15min Assessment AND Plan Problems 1. Segmental and somatic dysfunction of cervical region M99.01 2. Segmental and somatic dysfunction of thoracic region M99.02 3. Segmental and somatic dysfunction of lumbar region M99.03 Plan Follow up in 1 week should pain persist. Orders Orders: Plan Detail Goals Decrease inflammation and pain Increase ability to work with less pain Follow Up 1 Week Coding Level of Care Code No Charge Diagnoses Segmental and somatic dysfunction of cervical region M99.01 Segmental and somatic dysfunction of thoracic region M99.02 Segmental and somatic dysfunction of lumbar region M99.03 Additional Codes Procedures - Electrical Stimulation: 15 mins (84869) Procedures - Manipulation: 3-4 regions (72970) Procedures - Traction, Mechanical: Yes (83480) 07/22/17 1310 <Electronically signed by Batsheva Charles D.C.> Date Batsheva Charles D.C. Cosigner Signature: Date (if applicable) CC: ALLERGIES ALLERGIES DATE TYPE / CODE NAME / CODE REACTION SEVERITY SOURCE 02/19/2017 Drug midazolam/[id number] Other Unknown [facility] Allergy/416 5(RXNORM) [place] [address]([facility] CT) Repository 11/15/2014 Drug codeine/[id number]( Vomiting Unknown [facility] Allergy/416 RXNORM) [place] [address]([facility] ED CT) Repository 11/15/2014 Drug erythromycin Vomiting Unknown [facility] Allergy/416 base/[id number](RXN [address]) Repository ENCOUNTERS ENCOUNTERS ADMIT/DISCHARGE ACCOUNT ADMITTING ENCOUNTER LOCATION SOURCE NUMBER CLASS 05/19/2018/ [id number] Ambulatory BMSBuilding:B [facility] 8 8 [place] Repository 05/19/2018 [id number] Ambulatory [facility] [address] [facility] ing:PT Repository 05/12/2018/ [id number] Ambulatory BMSBuilding:B [facility] 8 7 [facility] Repository 05/05/2018/ [id number] Ambulatory BMSBuilding:B [facility] 8 8 [facility] Repository 04/28/2018 [id number] Ambulatory Jb Jb 7 [facility] ing:HPRAD Repository 04/27/2018 [id number] Ambulatory Building:[facility] Repository 04/27/2018/ [id number] Ambulatory BMSBuilding:B [facility] 8 5 [facility] Repository 04/20/2018/ [id number] Ambulatory BMSBuilding:B [facility] 8 5 [facility] Repository 04/16/2018/ [id number] Ambulatory BMSBuilding:B [facility] 8 2 [facility] Repository 04/15/2018/ [id number] Ambulatory BMSBuilding:B J[facility] 8 3 [facility] Repository 04/14/2018 [id number] Ambulatory [facility] [address] [facility] ing:HPRAD Repository 04/14/2018/ [id number] Ambulatory BMSBuilding:B Jb 8 0 [facility] Repository 02/24/2018 [id number] Ambulatory Jb Jb 7 [facility] ing:EMPH Repository 12/02/2017/ [id number] Ambulatory BMSBuilding:B [facility] 8 0 [facility] Repository 07/21/2017/ [id number] Ambulatory BMSBuilding:B J[facility] 8 5 [facility] Repository PAYERS PAYERS ENCOUNTER GUARANTOR PAYER SUBSCRIBER SOURCE 05/19/2018 JD Primary Insurance:[facility] JD [id number] [facility] 4934[place]19-88[place], [place] Number: Repository [address]Hhw: [phone] [id number] [phone] () Date:3287-57-01XT [facility] [address]BJDFICEFU, [place] [address]GM: CHECK WEBSITE 05/19/2018 Secondary NOT GIVENUNK Jb Insurance:SELF PAY [facility] Number: Effective Repository Date:2018-05-18 05/19/2018 JD Primary Insurance:[facility] JD Muhammad [id number] [facility] 4783-78-69NNMGarrison, [place] Number: Repository [address]Olb: 330 [id number] [phone] (HP) Date:1732-71-53IX [address] [address]PYCNEURZV, [place] [address]VS: CHECK WEBSITE 05/19/2018 Secondary NOT GIVENUNK [facility] Insurance:SELF PAY [facility] Number: Effective Repository Date:2018-04-16 05/12/2018 JD Primary Insurance:[facility] JD Muhammad [id number] [facility] 8822-12-82WMQG[place], [place] Number: Repository [address]Vtk: 330 [id number] [phone] (HP) Date:6777-48-87QG [address] [address]VMCBNRHYK, [place] [address]YN: CHECK WEBSITE 05/12/2018 Secondary NOT GIVENUNK Jb Insurance:SELF PAY [facility] Number: Effective Repository Date:2018-05-12 05/05/2018 JD Primary Insurance:[facility] JD Muhammad [id number] [facility] 8248-11-66ENAGarrison, [place] Number: Repository [address]Qeh: 330 [id number] [phone] () Date:2180-28-70CC [address] [address]PJWJDLAMV, [place] [address]TM: CHECK WEBSITE 05/05/2018 Secondary NOT GIVENUNK [facility] Insurance:SELF PAY [facility] Number: Effective Repository Date:2018-05-05 04/28/2018 JD Primary Insurance:[facility] JD Muhammad [id number] [facility]: [facility] 5842-57-43RXZG[place], [place] Number: Repository [address]Gqa: 330 [id number] [phone] (HP) Date:4245-93-45QR [address] [address]MXPLCMBRQ, [place] [address]GL: CHECK WEBSITE 04/28/2018 Secondary NOT GIVENUNK [facility] Insurance:SELF PAY [facility] Number: Effective Repository Date:2018-04-28 04/27/2018 Jd Primary [facility] Practices BalhDOB: Insurance:Medical BaloghDOB: Repository [facility] [id number] Chantal Number: Clarence Narvaez [facility], [id number] StreetWooster, [place] [address]Mgx: Date:1748-26-82Ypyt [place] [address]Umg: Name:O Box (HP)Tel: (035) [phone], [place] (OX) [phone] (GG) [id number]: 04/27/2018 Secondary Jd BROWN Practices Insurance:Health BalhDOB: Repository [facility] [id number] Number: Clarence Narvaez [id number] StreetWooster, Date:2008[birth year]07-[birth year] - [place] [address]Uga: [id number] Name:[facility] [address] [address]CK () NOT USE, ADD EXPIREDAustin, [place] [address]QJ: 04/27/2018 JD Primary Insurance:[facility] JD Muhammad [id number] [facility]: [facility] 2687-62-22UHTGarrison, [place] Number: Repository [address]Zct: (593) [id number] [phone] () Date:4129-38-00JT [address] [address]GTXYDLWGL, [place] [address]FD: CHECK WEBSITE 04/27/2018 Secondary NOT GIVENUNK Jb Insurance:SELF PAY [facility] Number: Effective Repository Date:2018-04-27 04/20/2018 JD Primary Insurance:[facility] JD Muhammad [id number] [facility]: [facility] 0096-83-40AFRG[place], [place] Number: Repository [address]Ftu: (326) [id number] [phone] (HP) Date:3668-38-61YS [address] [address]LSXGELMAW, [place] [address]RT: CHECK WEBSITE 04/20/2018 Secondary NOT GIVENUNK [facility] Insurance:SELF PAY [facility] Number: Effective Repository Date:2018-04-20 04/16/2018 JD Primary Insurance:[facility] JD Muhammad [id number] [facility]: [address] Number: Repository [address]Dby: 330 [id number] [phone] (HP) Date:2772-45-55AJ [address] [address]MMAQDCYET, [place] [address]TC: CHECK WEBSITE 04/16/2018 Secondary NOT GIVENUNK Jb Insurance:SELF PAY [facility] Number: Effective Repository Date:2018-04-16 04/15/2018 JD Primary Insurance:[facility] JD Muhammad [address]: [place] [address]1641-10-09[place], [place] Number: Repository [address]Nih: 330 [id number] [phone] () Date:8848-27-93UT [address] [address]MASYPRSMI, [place] [address]PM: CHECK WEBSITE 04/15/2018 Secondary NOT GIVENUNK Jb Insurance:SELF PAY [facility] Number: Effective Repository Date:2018-04-15 04/14/2018 JD Primary NOT GIVENUNK [facility] [id number] Insurance:SELF PAY [facility] [place] Number: Effective Repository [address]Xny: (330) Date:2018-04-14 [phone] (HP) 04/14/2018 JD Primary Insurance:[facility] JD Muhammad [id number] [place] [address]: [place] [address] Number: Repository [address]Ldu: 330 [id number] [phone] (HP) Date:9986-31-69IZ [address] [address]HVYKBBXYO, [place] [address]TL: CHECK WEBSITE 04/14/2018 Secondary NOT GIVENUNK Jb Insurance:SELF PAY [facility] Number: Effective Repository Date:2018-04-14 02/24/2018 JD Primary NOT GIVENUNK [facility] [id number] Insurance:SELF PAY [place] Number: Effective Repository [phone]: (330) Date:2018-02-24 [phone] (HP) 12/02/2017 JD Primary Insurance:[facility] JD Muhammad [id number] [facility]: [facility] 1803-76-67JWZG[place], [place] Number: Repository [address]Kcy: 330 [id number] [phone] () Date:7561-40-99EB [address] [address]CFRXPOZGI, [place] [address]XD: CHECK WEBSITE 12/02/2017 Secondary NOT GIVENUNK [facility] Insurance:SELF PAY [facility] Number: Effective Repository Date:2017-12-02 07/21/2017 JD Primary Insurance:[facility] JD Muhammad [id number] [facility]: [facility] 4058-79-98VDDGarrison, [place] Number: Repository [address]Cpc: 330 [id number] [phone] () Date:7022-54-50CN [address] [address]MTVCXNHVF, [place] [address]CU: CHECK WEBSITE 07/21/2017 Secondary NOT GIVENUNK Jb Insurance:SELF PAY [facility] Number: Effective Repository Date:2017-07-15
== END ==
PROVIDERS: Family Provider Internal Medicine; PCP Internal Medicine; Referring Provider Internal Medicine; Visit Provider Internal Medicine
DX: M25.562 Pain in left knee (principal)
CPT/HCPCS: 73564

== ENCOUNTER → 2018-06-04 11:21 | Outpatient (CLI) | payer OTHER, SELFPAY ==
[2018-05-12 10:17] VITALS: BMI 36.1
[2018-05-19 15:48] VITALS: BMI 36.1
--- NOTE | 2018-06-04 11:24 | MRI_ITS ---
STUDY: MRI LUMBAR SPINE WITHOUT CONTRAST REASON FOR EXAM: Female, 58 years old. Low back pain radiating to left leg TECHNIQUE: Standardized fat and water weighted pulse sequences were obtained in the sagittal and axial planes. COMPARISON: None FINDINGS: T12-L1: Normal endplates. Normal disc height, hydration and morphology. Normal bilateral facet joints. Normal central canal and bilateral lateral recesses. Normal bilateral intervertebral neural foramina. Normal lumbar lordosis. There is no substantial scoliosis. Normal conus medullaris that terminates at T12-L1 No evidence for acute fracture or subluxation. 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 Normal disc height, hydration and morphology. Normal bilateral facet joints. Normal central canal and bilateral lateral recesses. Normal bilateral intervertebral neural foramina. L2-3: Normal endplates. Normal disc height, hydration and morphology. Normal bilateral facet joints. Normal central canal and bilateral lateral recesses. Normal bilateral intervertebral neural foramina. L3-4: Normal endplates. Normal disc height, desiccation and minor annular bulge in association with small left paracentral disc protrusion. Normal bilateral facet joints. Normal central canal and bilateral lateral recesses. Normal bilateral intervertebral neural foramina. L4-5: Degenerative endplate changes. Normal disc height, desiccation and mild annular bulge. Minor facet arthropathy and thickening of ligamenta flava. Normal central canal. Mild bilateral recess and neuroforaminal encroachment L5-S1: Normal endplates. Normal disc height, desiccation and minimal annular bulge.. Minor facet arthropathy and thickening of ligamenta flava.. Normal central canal and bilateral lateral recesses. Normal bilateral intervertebral neural foramina. Normal visualized sacral ala. Normal visualized paraspinous soft tissue structures. MRI/Spine Lumbar (Routine) IMPRESSION: Mild spinal stenosis at L4-5 secondary to minimal annular bulge facet arthropathy and thickening of ligamenta flava Minor annular bulge and small left paracentral disc protrusion at L3-4 without significant spinal stenosis Minimal annular bulge at L5-S1 without spinal stenosis Electronically Signed: Jerry Willis MD at 21:48 EST , Service support ,
== END ==
PROVIDERS: Family Provider Internal Medicine; PCP Internal Medicine; Referring Provider Chiropractor; Visit Provider Chiropractor
DX: M54.16 Radiculopathy, lumbar region (principal)
CPT/HCPCS: 72148

== ENCOUNTER 2018-06-08 14:00 | Outpatient (RCR) | payer OTHER, SELFPAY ==
[2018-04-16 11:39] VITALS: BMI 36.1
--- NOTE | 2018-04-17 16:36 | HP.PTEVAL ---
Patient's Visit Information WEST POSADAS is a 58 year old F referred to Physical Therapy by ROMEO Sellers with a diagnosis of LUMBOSACRAL BACK PAIN. Date of Evaluation: 04/17/18 Physical Therapist: Marlene Alonso - Visit Plan Frequency: 2-3x /Week Duration: 4-6 Weeks Plan: POSTURE CORRECTION/STRENGTHENING, INSTRUCTION IN APPROPRIATE BODY MECHANICS AND ACTIVITY MODIFICATIONS. DLS STARTING WITH A NEUTRAL SPINE PROGRESSING ROM TOLERATED. SUDHA LE ROM, STRETCHING AND STRENGTHENING. HEP INSTRUCTION. 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 INVOLVES A LOT OF WALKING AND GETTING UP AND DOWN FROM SITTING. SOME BENDING AND REACHING. CURRENTLY HAS BEEN OFF WORK ALL WEEK FOR THIS AND IS GOING TO FOLLOW UP WITH DR. CHARLES FRIDAY WITH TENATIVE RTW NEXT FRIDAY. 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 Present symptoms: LOW BACK PAIN LEFT GREATER THAN RIGHT WITH PAIN RADIATING UP LEFT BACK DESCRIBED MUSCULAR PAIN. INTERMITTEN SUDHA THIGH PAIN WHEN BACK SPASMS. PATIENT DENIES SUDHA LE NUMBNESS OR TINGLING. Present since: Friday04/13/18. Pain Scale: WORST 7/10, LEAST 2/10. Currently: 4/10. PATIENT REPORTS SHE IS IMPROVING SLOWLY AND IS MAYBE 30% BETTER SINCE FRIDAY. Commenced as a result of: NO APPARENT REASON. JUST ROLLED OVER AND LIFTED UP TO GET OUT OF BAD AND SHE FELT IT SPASM AND IT PROGRESSED FROM THERE. PATIENT REPORTS SHE WAS ACTUALLY FEELING SOME LOW BACK DISCOMFORT AT WORK LAST WEEK AND SHE REPORTS A FEW TIMES SHE STOOD UP AT WORK LAST WEEK AND HER RIGHT HIP LOCKED UP. HAS HAPPENED WITH LEFT HIP IN PAST BUT LAST WEEK IT WAS RIGHT HIP. Symptoms at onset: LOW BACK. Worse: CHANGING POSITION, PROLONGED STANDING MORE THAN ABOUT 10 MIN, SUDDEN MVMTS JARRING BACK, BENDING, STEPS, LIFTING LEFT LE, GETTING IN/OUT OF CAR, TRYING TO SHOWER, WALKING, SITTING IN CHAIRS OTHER THAN RECLINER. Better: MOTRIN, ICE, HEAT, RECLINER, LYING IN EITHER SDLYING WITH PILLOW BETWEEN KNEES AND BEHIND BACK. Disturbed sleep: YES. Previous history/Previous treatment: HX OF JUST MUSCULAR ISSUES WITH LOW BACK A LONG TIME AGO. JUL 2015 COUGHING HURT HER BACK AND SHE WAS TREATED BY DR. CHARLES BUT THAT WAS HIRING IN HER BACK. NO EFRAIN'S. NO BACK SURGERY. PATIENT REPORTS SHE HAS SEEN DR. CHARLES OFF AND ON OVER THE PAST TWO YEARS OR SO NEEDED FOR LOW BACK MUSCULAR TIGHTNESS. ONLY ABOUT 5 CHIROPRACTIC VISITS OVER THIS TIME. THIS EPISODE HER PAIN STARTED FRIDAY AND SHE WENT TO DR. CHARLES FRIDAY, FRIDAY AND FRIDAY. BACK INJURY AT WORK IN 2004 TREATED WITH PHYSICAL THERAPY. Coughing/sneezing/straining: POSITIVE. Gait: PATIENT REPORTS SHE CURRENTLY CAN NOT WALK QUICKLY AND SHE LEANS TO THE RIGHT FAVORING LEFT LE. I'M NOT STRAIGHT UP AND DOWN PATIENT REPORTS SHE IS ALWAYS LEANING FORWARD. Difficulty initiating urinatin: NO. Accidents: NO. Unexplained weight loss: NO. Imaging: LUMBAR X-RAY 2 DAYS AGO SHOWING DECREASED DISC SPACE L5S1 ADN L4 L5 WITH FACET ARTHROSIS L45 AND L5S1. MILD DEGENERATIVE CHANGES. PMH: UNREMARKABLE. Recent major surgery: UNREMARKABLE. PLOF (Prior Level of Function): UNLIMITED. OTHER: SAW LUIS HUFFMAN YESTERDAY WITH MEDROL DOSE TORI PRESCRIBED AND PATIENT PLANS TO PICK IT UP TODAY. - Objective Sitting/Standing Posture: POOR. SHIFTED RIGHT WITH RIGHT SCAPULAR WINGING. INCREASED WEIGHT BEARING ON RIGHT LE COMPARED TO LEFT. Relevant shift: YES. Active Correction of posture: WORSE. Other Observations: PATIENT IS UNABLE TO TRANSFER FROM SIT TO STAND WITHOUT UE ASSIST. ALL MVMTS ARE SLOW AND GUARDED. GAIT IS SLOW AND GUARDED WITH RIGHT LATERAL SHIFT AND LIMPING ON LEFT LE. Motor deficit: RIGHT LE STRENGTH 5/5 WITH MMT'ING EXCEPT HIP GRADED 4-/5 AND TESTING INCREASES LEFT LB PAIN. LEFT HIP 3+/5, KNEE EXT 4/5, KNEE FLEX 4/5, ANKLE DORSI FLEX 4/5. Sensory deficit: NO. ROM deficit: TIGHTNESS SUDHA HS'S LEFT > RIGHT AND TIGHT SUDHA GASTROC SOLEUS COMPLEX'S ALONG WITH HIP FLEXORS. Reflexes: RIGHT QUAD AND ACHILLES 2/3, LEFT 1/3. Dural Signs: NEGATIVE RIGHT LE AND POSITIVE LLE. Lumbar mvmt loss: flex - EVE. ext - EVE. R SG - MOD. L SG - EVE. Core strength: POOR. Palpation: PATIENT IS VERY TENDER WITH LIGHT PALPATION OF THE ENTIRE LUMBAR SPINE TO S1 BUT LESS OVER THE SACRUM. SHE IS NOT TENDER IN THE THORACIC SPINE AND DENIES ANY FALLS. SHE IS TENDER IN THE LEFT BUTTOCK REGION BUT OTHERWISE NOT PELVIC, HIP OR THIGH PAIN. - Goals Goal 1:: DECREASE C/O BACK AND SUDHA LE SX'S Goal Time Frame: 4-6 Weeks Goal 2:: IMPROVE PERSONAL CARE, LIFTING, WALKING, SITTING, STANDING, SLEEP, SOCIAL LIFE, TRAVEL AND WORK/HOMEMAKING FUNCTION Goal Time Frame: 4-6 Weeks Goal 3:: INSTRUCT IN PROPHYLAXIS Goal Time Frame: 4-6 Weeks - Rehabilitation Potential Rehabilitation Potential: Fair - Anticipated Interventions Patient/Client Instruction: Educate patient on: Condition, Plan of Care, Risk Factors, Benefits of Fitness Program For the Purpose of:: To improve self management Therapeutic Exercise to Include: Strength training, Body mechanics, Postural training, Flexibilty training, Gait and locomotor training, In an aquatic setting, Active ROM, Dynamic Lumbar Stabilization For the Purpose of:: To decrease pain, To increase ROM, To improve muscle performance and motor function, To improve ability to perform ADL's, To increase tolerance to activity/condition/position, To improve ability of physical actions for home/community/work/leisure, To improve gait and locomotor functions TENS: Yes IF ES: Yes Cryotherapy (ice pack, ice massage): Yes Thermo therapy (hot pack): Yes Ultrasound (thermal/non thermal): Yes For the Purpose of:: To decrease pain, To decrease swelling/inflammation, To increase ROM, To improve nutrient delivery to tissue Thank you for the opportunity to evaluate your patient. For Medicare and Medicare HMO plans, please review the plan of care and approve it. It will need to be FAXED BACK to us at [phone] for Medicare purposes. Please let me know if there are questions or concerns regarding this plan of care. Physician Signature: Date:
--- NOTE | 2018-05-04 16:55 | HP.PTREVAL_ITS ---
Yamini Arango, METHODS AND PROCEDURES ANALYST-C, It has been my pleasure to treat WEST POSADAS over the last 7 visits for LUMBOSACRAL BACK PAIN. Please see the progress note below for an update on the physical therapy plan of care! Subjective: PATIENT REPORTS SHE IS DOING BETTER. ABLE TO STAND LONGER AND MOVE BETTER BUT STILL GETS A PINCH IF SHE TWISTS WRONG SOMETIMES. ABLE TO GO [employer] AND UNPACK GROCERIES BUT AVOIDED LIFTING. APPOINTMENT WITH DR. CHARLES TOMORROW. STILL OFF WORK. PATIENT REPORTS SIGNIFICANT INCREASED MOBILITY FOR 24 TO 48 HOURS AFTER EACH SESSION AND SHE FEELS THE US AND STIM REALLY ARE HELPING A LOT. STILL OFF WORK. STATES SHE ISN'T SURE SHE FEELS READY TO GO BACK TO WORK. Objective/Function: PATIENT CONTINUES TO HAVE SIGNIFICANT LUMBAR MVMT LOSS ALL PLANES. FLEX - MOD TO EVE, EXT - MOD TO EVE, RIGHT SG - MOD TO EVE AND LEFT SG - MOD. SHE CONTINUES TO HAVE POSITIVE LLE DURAL SIGN AND SHE IS UNABLE TO YOUNGBLOOD SFER FROM SIT TO STAND WITHOUT UE ASSIST. SHE SUBJECTIVELY REPORTS MORE IMPROVEMENT THAN IS SEEN OBJECTIVELY. RIGHT LE STRENGTH 5/5 WITH MMT'ING EXCEPT HIP GRADED 4/5 AND TESTING DOES NOT INCREASE LEFT LB PAIN TODAY WHICH IS AN IMPROVEMENT. LEFT HIP 4-/5, KNEE EXT 5/5, KNEE FLEX 4/5, ANKLE DORSI FLEX 4/5. PATIENT IS DEMONSTRATING AND COMMUNICATING IMPROVED CADANCE WITH GAIT AND REPORTING SIGNIFICANTLY LESS PAIN OVER-ALL BUT WITH MODIFIED ACTIVITIES. OSWESTRY SCORE HAS NOT SIGNIFICANTLY IMRPOVED. Plan Plan: CONT PER POC AND INCORPORATE LEFT KNEE US ALONG WITH LE ROM, STRETCHING AND STRENGTHEING. PATIENT MAY BE A GOOD CANDIDATE FOR AQUATIC THERAPY AND SHE IS AGREEABLE. Goals Goal 1:: DECREASE C/O BACK AND SUDHA LE SX'S Goal Time Frame: 4-6 Weeks Goal Progress: Progressing Goal 2:: IMPROVE PERSONAL CARE, LIFTING, WALKING, SITTING, STANDING, SLEEP, SOCIAL LIFE, TRAVEL AND WORK/HOMEMAKING FUNCTION Goal Time Frame: 4-6 Weeks Goal Progress: Progressing Goal 3:: INSTRUCT IN PROPHYLAXIS Goal Time Frame: 4-6 Weeks Goal Progress: Progressing Goal 4:: DECREASE C/O LEFT KNEE PAIN Goal Time Frame: 4-6 Weeks Goal Progress: Progressing Anticipated Interventions Patient/Client Instruction: Educate patient on: Condition, Plan of Care, Risk Factors, Benefits of Fitness Program For the Purpose of:: To improve self management Therapeutic Exercise to Include: Strength training, Body mechanics, Postural training, Flexibilty training, Gait and locomotor training, In an aquatic setting, Active ROM, Dynamic Lumbar Stabilization For the Purpose of:: To decrease pain, To increase ROM, To improve muscle performance and motor function, To improve ability to perform ADL's, To increase tolerance to activity/condition/position, To improve ability of physical actions for home/community/work/leisure, To improve gait and locomotor functions TENS: Yes IF ES: Yes Cryotherapy (ice pack, ice massage): Yes Thermo therapy (hot pack): Yes Ultrasound (thermal/non thermal): Yes For the Purpose of:: To decrease pain, To decrease swelling/inflammation, To increase ROM, To improve nutrient delivery to tissue Please do not hesitate to contact me at [phone] by phone or if you have questions or concerns regarding this new plan of care! Sincerely, Marlene Alonso
--- NOTE | 2018-06-08 15:05 | HP.PTDCSUM ---
HP - PT D/C Summary It has been my pleasure to treat WEST POSADAS under orders from EDWARD SellersC, for the diagnosis of LUMBOSACRAL BACK PAIN for a total of 17 visit(s). Discharge Date: Please see the following information for a summary of their discharge status. - Subjective Subjective: PATIENT REPORTS HER BACK AND HER KNEE ARE STILL IMPROVING. PATIENT REPORTS HER HEP IS GOING GOOD. WENT [facility] OVER THE WEEKEND AND DID GYM EX'S - WHICH WENT WELL. MRI JUN 04 2018. APPOINTMENT WITH DR. CHARLES TOMORROW. INCREASED LOW BACK ACHYING ON WORK DAYS AND AFTER WORK FridayJun EVEN FELT IT IN HER LEFT THIGH. JUST CAME FROM WORK TODAY. NOT PREVENTING HER FROM DOING HER JOB. SITTING IS THE WORST. PATIENT REPORTS SHE IS PRETTY MUCH BACK TO BEING ABLE TO DO ALL OF HER NORMAL ACTIVITIES. ASKING IF AN INJECTION WOULD HELP. PATIENT REPORTS SHE HAS EVEN BEEN ABLE TO DECREASE USE OF ADVIL. - Pain LEFT LOW BACK Pain Intensity (Out of 10): 2 LEFT KNEE Pain Intensity (Out of 10): 3 - Overall Improvement % Improvement: 90 - Objective Objective/Function: PATIENT IS IMPROVING IN TERMS OF LUMBAR ROM, KNEE ROM, TRUNK AND LE STRENGTH, LE FLEXABILITY AND ADL FUNCTION HOWEVER SHE STILL HAS SIGNIFICANT FINDINGS. LUMBAR MVMT LOSS: FLEX - MIN TO MOD, EXT -MOD. RIGHT SG - MOD AND LEFT SG - MOD. PATIENT IS TOLERATING REP EIL WELL. FLEXION IS STILL LIMITED AND PROVOKES PAIN. ALL GOALS HAVE TECH. BEEN MET AND SHE IS INDEP WITH BOTH POOL AND LAND EX PROGRAMS ALTHOUGHT POOL EX'S ARE TOLERATED BETTER THAN LAND. MY HOPE IS THAT SHE WILL CONTINUE TO IMPROVE WITH EX AND TIME BUT IF NOT PAIN MGMT MIGHT BE INDICATED. SHE NOW HAS NEGATIVE LLE DURAL SIGN AND SHE IS NOW ABLE TO TRANSFER FROM SIT TO STAND WITHOUT UE ASSIST OR INCREASED PAIN. SHE SUBJECTIVELY REPORTS MORE IMPROVEMENT THAN IS SEEN OBJECTIVELY AGAIN BUT THEY ARE STARTING TO CORRELATE BETTER. SUDHA LE STRENGTH IS 5/5 WITH MMT'ING. PATIENT IS DEMONSTRATING AND COMMUNICATING IMPROVED CADANCE WITH GAIT AND REPORTING SIGNIFICANTLY LESS PAIN OVER-ALL BUT STILL WITH SOME MODIFIED ACTIVITIES ESPECIALLY SITTING. OSWESTRY SCORE HAS IMPROVED FROM 30 TO 17. LEFT KNEE FLEXION ROM HAS IMPROVED FROM 106 DEG TO 125 DEG. STILL - 3 DEG EXTENSION. - Goals Goal 1:: DECREASE C/O BACK AND SUDHA LE SX'S Goal Progress: Goal Met Goal 2:: IMPROVE PERSONAL CARE, LIFTING, WALKING, SITTING, STANDING, SLEEP, SOCIAL LIFE, TRAVEL AND WORK/HOMEMAKING FUNCTION Goal Progress: Goal Met Goal 3:: INSTRUCT IN PROPHYLAXIS Goal Progress: Goal Met Goal 4:: DECREASE C/O LEFT KNEE PAIN Goal Progress: Goal Met - Plan Plan: D/C TO INDEP EX. PATIENT AGREEABLE. - D/C Information If there are questions or concerns regarding this patient's physical therapy, please feel free to call me at [phone]. Thank you for the referral of this patient. Sincerely, Marlene Alonso, PT, Cert MDT
== END 2018-06-08 19:00 | disposition home or self-care (01) ==
LOC: PT 14:00
PROVIDERS: Family Provider Internal Medicine; PCP Internal Medicine; Referring Provider Nurse Practitioner Gerontology; Visit Provider Nurse Practitioner Gerontology
DX: M54.5 Low back pain (principal); M25.562 Pain in left knee
CPT/HCPCS: 97014; 97035; 97110; 97113; 97162; 97530; G0283

== ENCOUNTER → 2018-08-05 13:18 | Outpatient (CLI) | payer OTHER, SELFPAY ==
[2018-07-01 11:46] VITALS: BMI 36.1
[2018-08-10 10:47] LABS: HPV Reflexed? NOT INDICATED
== END ==
PROVIDERS: Visit Provider Obstetrics & Gynecology
DX: Z12.4 Encounter for screening for malignant neoplasm of cervix (principal)
CPT/HCPCS: 88175; G0145

== ENCOUNTER → 2018-10-02 07:20 | Outpatient (CLI) | payer OTHER, SELFPAY ==
[2018-07-01 11:46] VITALS: BMI 36.1
--- NOTE | 2018-10-02 07:26 | MRI_ITS ---
STUDY: MRI LEFT KNEE REASON FOR EXAM: Female, 58 years old. Medial knee pain TECHNIQUE: Standardized fat and water weighted pulse sequences were obtained in all 3 orthogonal planes. COMPARISON: Knee x-ray 04/21/2017. 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 There is a 6 mm extrusion of the medial meniscus without apparent tear There is diffuse, greater than 50% thickness articular cartilage loss of the medial femorotibial compartment. There is mild osteoarthritic spur formation of the medial knee compartment. Normal medial collateral ligamentous complex (MCL). Normal distal semimembranosus, gracilis and semitendinosus tendons. Normal lateral meniscus. There is signal heterogeneity within the articular cartilage of the lateral femorotibial compartment without significant thinning and with an intact articular cartilage surface. Normal lateral femoral condyle and tibial plateau. Normal proximal tibiofibular articulation. Normal lateral collateral (fibular) ligament. Normal popliteus tendon. Normal biceps femoris tendon. Normal anterior cruciate ligament (ACL). Normal posterior cruciate ligament (PCL). Normal congruent patellofemoral articulation. There is signal heterogeneity within the articular cartilage of the patellofemoral compartment without significant thinning and with an intact articular cartilage surface. Normal medial and lateral patellar retinaculum. Normal quadriceps tendon. Normal patellar tendon. Normal Hoffa's fat pad. There is trace joint effusion. There is mild subcutaneous edema along the prepatellar subcutaneous tissue. There is a small, septated Yu's cyst. The otherwise visualized osseous structures are unremarkable. 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 Mild chondromalacia of the patellofemoral and lateral compartment. There is mild subcutaneous edema along the prepatellar subcutaneous tissue. Small Yu's cyst. Electronically Signed: Audrey Dey, at 11:45 EDT Tel , Service support ,
== END ==
PROVIDERS: Family Provider Internal Medicine; PCP Internal Medicine; Referring Provider Internal Medicine; Visit Provider Internal Medicine
DX: M25.562 Pain in left knee (principal)
CPT/HCPCS: 73721

== ENCOUNTER → 2019-02-24 08:04 | Outpatient (CLI) | payer OTHER, SELFPAY ==
[2019-01-25 12:23] VITALS: BMI 36.1
[2019-02-24 08:34] LABS: Absolute Lymphocyte Count 1.33 X10^3/uL (0.83-4.51); Absolute Neutrophil Count 4.6 X10^3/uL (2.0-7.7); Basophil# 0.05 X10^3/uL; Basophil% 0.7 % (0-1); Eosinophil# 0.16 X10^3/uL; Eosinophils% 2.3 % (0-5); Hematocrit 41.2 % (37-47); Lymphocyte # 1.33 X10^3/ul (4.0); Lymphocyte % 19.5 % (19-41); Mean Corpuscular Hgb 30.2 pg (27.0-32.0); Mean Corpuscular Volume 88.8 fL (81-99); Monocyte# 0.64 X10^3/uL; Monocyte% 9.4 % (0-10); NRBC Flagged by Analyzer 0 % (0-5); Neutrophil # 4.63 X10^3/uL (2.7-7.7); Neutrophil % 67.8 % (47-70); Platelet Count 312 K/mm3 (150-450); RBC Distribution Width CV 12.5 % (11.6-14.6); RBC Distribution Width SD 40.9 fl (35.1-43.9); Red Blood Count 4.64 M/mm3 (4.2-5.4); White Blood Count 6.8 K/mm3 (4.4-11.0)
[2019-02-24 08:47] LABS: Color, Urine Yellow (Yellow); Glucose, Dipstick Normal (Normal); Ketone-Dipstick Negative (Negative); Leukocyte Esterase-Dipstick 100 /ul (Negative); Nitrite-Dipstick Negative (Negative); Occult Blood-Urine 25 /ul (Negative); Protein-Dipstick Negative (Negative); Urine Bilirubin Dipstick Negative (Negative); Urine Clarity Clear (Clear); Urine Urobilinogen Normal (Normal)
[2019-02-24 08:50] LABS: Hemoglobin A1c 5.6 % (4.2-6.3)
[2019-02-24 09:04] LABS: Microalbumin,Random Urine 8.6 mg/L (NO RANGE EST.); Microalbumin:Creatinine Ratio 5.9 mg/g CRE (<30 mg/g CRE)
[2019-02-24 09:05] LABS: ALB/GLOB Ratio 0.9 RATIO (0.9-2.4); AST(SGOT) 31 U/L (15-37); Alanine Aminotransfer ALT/SGPT 48 U/L (13-56); Albumin, Serum 3.9 g/dL (3.2-5.0); Alkaline Phosphatase 71 U/L (45-117); Anion Gap 8 (5-15); BUN 18 mg/dL (7-18); BUN/Creat Ratio 24.2 RATIO (10-20); Calcium,Total 8.8 mg/dL (8.5-10.1); Chloride 108 mmol/L (98-107); Creatinine, Serum 0.74 mg/dL (0.55-1.02); EST Glomerular Filtration Rate 85 mL/min (>60); Est Glom Filt Rate - Afr Amer 103 mL/min (>60); Globulin 4.2 g/dL (2.2-4.2); Glucose 112 mg/dL (74-106); Potassium 3.8 mmol/L (3.5-5.1); Protein, Total 8.1 g/dL (6.4-8.2); Sodium Level 141 mmol/L (136-145); Thyroid Stim Hormone (TSH) 2.51 uIU/mL (0.358-3.74)
[2019-02-25 16:07] LABS: CHOLESTEROL TOTAL 210 mg/dL (100-199); HDL-C 46 mg/dL (>39); HDL-P TOTAL 29.6 umol/L (>=30.5); SMALL LDL-P 828 nmol/L (<=527); TRIGLYCERIDES 124 mg/dL (0-149)
[2019-02-25 16:36] LABS: INSULIN RESISTANCE SCORE 37 (<=45); LDL SIZE 21.1 nm (>20.5); LDL-C 139 mg/dL (0-99); LDL-P 1618 nmol/L (<1000)
== END ==
LOC: LAB.FUTURE 08:05 → LAB 08:08
PROVIDERS: Family Provider Internal Medicine; PCP Internal Medicine; Referring Provider Internal Medicine; Visit Provider Internal Medicine
DX: I10 Essential (primary) hypertension (principal)
CPT/HCPCS: 36415; 80053; 80061; 81002; 82043; 82570; 83036; 83704; 84443; 85025

== ENCOUNTER 2019-02-25 17:12 | Observation (INO) | payer OTHER, SELFPAY ==
[2019-01-25 12:23] VITALS: BMI 36.1
[2019-02-25] VITALS (7 sets, daily range): BP systolic 151–176; BP diastolic 81–95; PULSE 57–83; RESP 13–16; TEMP 36.6–36.9; O2SAT 96–97; BMI 36.6; BMI 35.8
--- NOTE | 2019-02-25 17:30 | EKG12_ITS ---
Test Reason : CP Blood Pressure : / mmHG Vent. Rate : 079 BPM Atrial Rate : 079 BPM P-R Int : 172 ms QRS Dur : 088 ms QT Int : 410 ms P-R-T Axes : 050 -19 031 degrees QTc Int : 470 ms Normal sinus rhythm Inferior infarct , age undetermined Abnormal ECG Confirmed by SALVATORE WALTERS, GAVIN ([id number]), associate entertainment editor JESSICA GALLEGOS ([id number]) on 03/01/2019 3:27:33 PM Referred By: Dee Dee Alonso Confirmed By:GAVIN CHASE MD
--- NOTE | 2019-02-25 17:30 | RAD_ITS ---
STUDY: X-RAY CHEST REASON FOR EXAM: Female, 58 years old. Chest pain TECHNIQUE: Single AP portable view of the chest. COMPARISON: None. FINDINGS: The lungs are clear and expanded. There is no demonstrated pleural abnormality. Normal size heart. Normal mediastinum and nima. Normal visualized pulmonary arteries. Normal visualized aortic arch and descending thoracic aorta. Normal visualized thoracic spine. Normal visualized ribs, clavicles, and shoulders. There is no demonstrated abnormality of the visualized soft tissue structures of the upper abdomen. RAD/Chest 1 View (Portable) IMPRESSION: Normal x-ray examination of the chest. Electronically Signed: Baljinder Arzate DO at 17:57 EDT Tel , Service support ,
[2019-02-25 17:47] LABS: Absolute Lymphocyte Count 1.83 X10^3/uL (0.83-4.51); Absolute Neutrophil Count 11.9 X10^3/uL (2.0-7.7); Basophil# 0.03 X10^3/uL; Basophil% 0.2 % (0-1); Hematocrit 44.5 % (37-47); Hemoglobin 15.2 g/dL (12.0-15.0); Lymphocyte # 1.83 X10^3/ul (4.0); Lymphocyte % 12.6 % (19-41); Mean Corp Hgb Conc 34.2 g/dL (32-36); Mean Corpuscular Hgb 30.4 pg (27.0-32.0); Mean Platelet Vol. 8.9 fl (6.2-12.0); Monocyte# 0.69 X10^3/uL; Monocyte% 4.8 % (0-10); NRBC Flagged by Analyzer 0 % (0-5); Neutrophil # 11.91 X10^3/uL (2.7-7.7); Platelet Count 408 K/mm3 (150-450); RBC Distribution Width CV 12.4 % (11.6-14.6); RBC Distribution Width SD 40.5 fl (35.1-43.9); White Blood Count 14.5 K/mm3 (4.4-11.0)
[2019-02-25] MEDS: Aspirin 81 MG TAB.CHEW 324 MG PO (17:55)
[2019-02-25 18:00] LABS: Anion Gap 7 (5-15); BUN 16 mg/dL (7-18); BUN/Creat Ratio 16.7 RATIO (10-20); Calcium,Total 9.7 mg/dL (8.5-10.1); Chloride 105 mmol/L (98-107); Creatinine, Serum 0.96 mg/dL (0.55-1.02); EST Glomerular Filtration Rate 64 mL/min (>60); Est Glom Filt Rate - Afr Amer 77 mL/min (>60); Estimated Creatinine Clearance 65.22 ml/min; Glucose 143 mg/dL (74-106); Potassium 3.4 mmol/L (3.5-5.1); Sodium Level 136 mmol/L (136-145)
[2019-02-25] MEDS: Nitroglycerin SL (ED/IMG/CATH) 0.4 MG TABLET SUBLINGUAL (18:14)
[2019-02-25] MEDS: 0.9% Normal Saline 1,000 ML 150 ML IV (18:14)
--- NOTE | 2019-02-25 18:26 | HP.PCM_ITS ---
History of Present Illness Date of Admission: 02/25/19 Chief Complaint: Chest pain The patient is a 58 year old F with a past medical history of chronic back pain due to bulging disks and hypertension. She was admitted through the ED on 02/25/2019 with complaint of chest pain which is started a few hours prior to admission. Chest pain was pressure-like and radiated up the left side of her neck and she rated it at about 5 out of 10. Chest pain was relieved by nitro when she came into the ED. patient states she accidentally took more of her prednisone today than she was supposed to take and so she thought the symptoms were related to that the chest pain persisted and started radiating up the side of her neck so she decided to come to the ED to be checked out. She denied any lightheadedness or dizziness, palpitations, shortness of breath, diarrhea vomiting. She is never has had chest pain in the past. She has no known history of coronary artery disease. Review of systems otherwise negative. In the ED vitals were significant for blood pressure which was elevated at 176/95. Potassium was 3.5 per chemistry and initial troponin was less than 0.015. CBC showed white cell count of 14.5 which could be explained by the fact that she had been on prednisone for back pain recently. 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 Initial troponin was negative. She has been admitted to be managed for chest pain to rule out ACS. [] Past Medical History Medical History: Medical History (Last Reviewed 02/24/19 @ 08:59 by Sallie Sunshine) Diarrhea R19.7 Migraines G43.909 HTN (hypertension) I10 Allergies midazolam [From Versed] Allergy (Verified 02/25/19 17:13) Other codeine Adverse Reaction (Verified 02/25/19 17:13) Vomiting erythromycin base Adverse Reaction (Verified 02/25/19 17:13) Vomiting Home Medications: Ambulatory Orders Medication Instructions Recorded Diltiazem CD [Cardizem CD] 120 mg PO DAILY 02/25/19 Hydrochlorothiazide [Hctz] 25 mg PO DAILY 02/25/19 Prednisone 10 mg PO DAILY 02/25/19 Surgical History: Surgical History (Last Reviewed 02/24/19 @ 08:59 by Sallie Sunshine) History of appendectomy Z90.49 History of cholecystectomy Z90.49 Surgical History: appendectomy, cholecystectomy, - Psychiatric History: No pertinent psych hx ROPEMAN History: No pertinent ROPEMAN history Lives: Spouse/ Significant Other Smoking Status: Never smoker Alcohol: None Drugs: None - *Family History Maternal Family History: Family History (Last Reviewed 02/24/19 @ 08:59 by Sallie Sunshine) Mother Arthritis Migraine Father CAD (coronary artery disease) Hx of CABG Arthritis History Items: Heart Disease - in grandmother Paternal Family History: Family History (Last Reviewed 02/24/19 @ 08:59 by Sallie Sunshine) Mother Arthritis Migraine Father CAD (coronary artery disease) Hx of CABG Arthritis History Items: Heart Disease Review of Systems Constitutional: Denies: Chills, Fever, Weight Change Eyes: Denies: Blurred vision HEENT: Denies: Head Aches, Sinus Congestion, Sinus Drainage Cardiovascular: Reports: Chest Pain. Denies: Chest Pressure, Chest Tightness, Edema, Heaviness, Light Headedness, Orthopnea, Palpitations, Paroxysmal Noc. Dyspnea, Syncope Respiratory: Denies: Cough, Shortness of breath at rest, Sputum production Gastrointestinal: Denies: Abdominal Pain, Nausea, Vomiting Genitourinary: Denies: Dysuria Musculoskeletal: Denies: Joint Pain, Joint Tenderness Skin: Denies: Rash, Wounds Neurological: Denies: Numbness, Tingling, Focal weakness Psychiatric: Denies: Anxiety, Depression, Homicidal Ideations, Suicidal Ideations Hematologic/ Lymphatic: Denies: Easy Bruising, Easy Bleeding VTE Information - Inpt Only VTE Present on Admission: No VTE Pharm Prophylaxis ordered?: Yes - Physical Exam General: Alert, Oriented x3, Cooperative, No apparent distress HEENT: Atraumatic, PERRLA, EOMI, Normocephalic Oral: Moist Mucosa Neck: Supple, No JVD, Negative Carotid Bruits Lungs: Clear to auscultation, Normal air movement, No rhonchi, No wheeze Cardiovascular: Regular rate, Regular Rhythm, Normal S1, Normal S2, No murmurs Abdomen: Bowel Sounds Present, Soft, Non Tender, Non-Distended, No Hepato- splenomegaly Extremities: No clubbing, No cyanosis, No edema, Capillary Refill Less than 3 Seconds Skin: No rashes, No breakdown Musculoskeletal: No Tenderness to Palpation of Joints or Extremities Lymphatic: No Cervical, Supraclavicular, or Inguinal Adenopathy Neurological: Cranial nerves II-XII grossly intact, Neuro grossly intact, Motor Exam 5/5 strength throughout Psych/Mental Status: Normal Affect, Appropriate, Alert and oriented to time, place, person, mood and affect Vital Signs Temp Pulse Resp BP Pulse Ox 97.8 F 67 13 176/95 H 96 02/25/19 17:13 02/25/19 18:14 02/25/19 17:13 02/25/19 18:14 02/25/19 17:34 Oxygen Delivery Method Room Air Weight: 240 lb 11.916 oz Body Mass Index (BMI) 36.6 Laboratory Tests Past 24 Hrs 02/25/19 02/25/19 17:15 17:15 WBC 14.5 H RBC 5.00 Hgb 15.2 H Hct 44.5 MCV 89.0 MCH 30.4 MCHC 34.2 RDW Std Deviation 40.5 RDW Coeff of Papo 12.4 Plt Count 408 MPV 8.9 Immature Gran % (Auto) 0.400 Neut % (Auto) 82.0 H Lymph % (Auto) 12.6 L Rowan % (Auto) 4.8 Eos % (Auto) 0.0 Baso % (Auto) 0.2 Absolute Neuts (auto) 11.9 H Absolute Lymphs (auto) 1.83 Nucleated RBC % 0 Sodium 136 Potassium 3.4 L Chloride 105 Carbon Dioxide 24.0 Anion Gap 7 BUN 16 Creatinine 0.96 Estim Creat Clear Calc 65.22 Est GFR (MDRD) Af Amer 77 Est GFR (MDRD) Non-Af 64 BUN/Creatinine Ratio 16.7 Glucose 143 H Calcium 9.7 Troponin I < 0.015 Diagnostic Data Chest X-Ray 02/25/19 17:30 IMPRESSION: Normal x-ray examination of the chest. Electronically Signed: Baljinder Arzate DO at 17:57 EDT Tel , Service support , Assessment/Plan All Active Problems (Last Reviewed 02/24/19 @ 08:59 by Sallie Sunshine) Essential (primary) hypertension (Acute) Bulging lumbar disc (Acute) Segmental and somatic dysfunction of pelvic region (Acute) Strain of muscle, fascia and tendon of lower back, initial encounter (Acute) Segmental and somatic dysfunction of cervical region (Acute) Segmental and somatic dysfunction of thoracic region (Acute) Segmental and somatic dysfunction of lumbar region (Acute) Radiculopathy of lumbar region (Acute) 8-year-old female admitted with a complaint of chest pain. 1. Chest pain to r.o ACS * Admit to PCU with telemetry * Cycle troponins * Abnormal nitroglycerin as needed. P.o. aspirin 81 mg daily. * Check lipid panel. States she recently checked her A1c and was 5.6 * If troponins are negative for stress test tomorrow. * 2. Hypokalemia: Potassium is 3.4. Replace and monitor. 3. Hypertension: * Poorly controlled. Blood pressure was elevated at 176/95 on admission. Took her meds today. * Will resume her Cardizem and hydrochlorthiazide. * IV hydralazine PRN. * 5. Leukocytosis: White cell count is 14.5. This is likely reactive from steroids that she has been on. 6. Chronic back pain due to lumbar radiculopathy: Currently on prednisone. Prophylaxis: Lovenox Code Visit OBSV E&M: 47399 Initial observation care L2
[2019-02-25] MEDS: Nitroglycerin Oint 1 INCH PACKET TRANSDERM. (18:46)
--- NOTE | 2019-02-25 18:52 | ED.DCSUM_ITS ---
- ER Visit Summary Date of Service: 02/25/19 Chief Complaint: [Chest pain] History of Present Illness: The patient is a 58 F [the emergency department complaint chest pain that started half an hour ago. Patient describes a pressure that is retrosternal and radiates into her left jaw. Patient denies any nausea or vomiting with it. She denies any diaphoresis. She is never had discomfort like this before. She rates it a 5 out of 10. Patient incidentally gives me a history that she took too much prednisone accidentally yesterday took 310 mg tablets 3 times for total 90 mg yesterday and she also took 30 mg today earlier this morning. She is unsure if this has anything to do with it. Patient states that she feels somewhat jittery and shaky. She has no history of anxiety or panic attacks. She has a history of hypertension. No significant family history of heart disease. She denies recent travel or surgery. Patient patient has had prior cholecystectomy and appendectomy.] Physical Examination: [HEENT-PERRLA, EOMI. Cranial nerves II through XII grossly intact. TMs clear. Mucous membranes moist. No adenopathy. Cardiovascular-regular rate and rhythm without murmur or ectopy Lungs-clear to auscultation, chest wall stable without crepitus or subcu emphysema Abdomen-normoactive bowel sounds, soft, nontender, no rebound or rigidity, no peritoneal signs. Extremities-intact ?4, normal range of motion, normal pulses, atraumatic] Test Results: [EKG obtained arrival showed a sinus rhythm with a ventricular rate of 79 bpm with old inferior infarct noted. CBC with differential showed a white blood cell count of 14.5, hemoglobin 15, hematocrit 44, platelets 408. Chemistries unremarkable. Troponin is less than 0.015. Chest x-ray was unremarkable.] Emergency Department Course and Treatment: [She received aspirin in the emergency department. Patient was given 1 sublingual nitro every 5 minutes x3 which centrally resolved her pain. Patient had an inch of Nitropaste placed to the anterior chest wall.] Treatment Plan: [Admit ] Disposition: [Admit] Impression: Rest pain-rule out acute [place] syndrome] This note was generated with [employer] dictation software. It may contain incorrect words, spelling, and punctuation that were not noted in review of the chart prior to signing ED Disposition - Plan for ED Patient: Referrals: Charo Grier DO [Primary Care Provider] -
[2019-02-25 20:25] LABS: Cholesterol 241 mg/dL (200); High Density Lipoprotein 60 mg/dL; Triglycerides 110 mg/dL; Very Low Density Lipoprotein 22 mg/dL (5-40)
[2019-02-26 01:38] VITALS: BP 124/62; PULSE 61; RESP 18; TEMP 36.9; O2SAT 95
[2019-02-26] MEDS: 0.9% Normal Saline 1,000 ML 100 ML IV (02:36)
[2019-02-26 03:59] VITALS: PULSE 60
[2019-02-26 04:59] LABS: Absolute Neutrophil Count 4.8 X10^3/uL (2.0-7.7); Basophil# 0.04 X10^3/uL; Basophil% 0.5 % (0-1); Eosinophils% 1.2 % (0-5); Hemoglobin 12.7 g/dL (12.0-15.0); Lymphocyte % 32.7 % (19-41); Mean Corp Hgb Conc 33.4 g/dL (32-36); Mean Corpuscular Hgb 30.2 pg (27.0-32.0); Mean Corpuscular Volume 90.5 fL (81-99); Monocyte# 0.78 X10^3/uL; Monocyte% 9.1 % (0-10); NRBC Flagged by Analyzer 0 % (0-5); Neutrophil # 4.83 X10^3/uL (2.7-7.7); Neutrophil % 56.4 % (47-70); Platelet Count 313 K/mm3 (150-450); RBC Distribution Width CV 12.6 % (11.6-14.6); RBC Distribution Width SD 41.3 fl (35.1-43.9); White Blood Count 8.6 K/mm3 (4.4-11.0)
--- NOTE | 2019-02-26 05:00 | EKG12_ITS ---
Test Reason : AM EKG Blood Pressure : / mmHG Vent. Rate : 063 BPM Atrial Rate : 063 BPM P-R Int : 188 ms QRS Dur : 090 ms QT Int : 452 ms P-R-T Axes : 058 -08 048 degrees QTc Int : 462 ms Normal sinus rhythm Septal infarct , age undetermined Possible Inferior infarct , age undetermined Abnormal ECG Confirmed by SALLY WALTERS, MANOLO ([id number]), editor dictionary JESSICA GALLEGOS ([id number]) on 03/09/2019 10:40:34 AM Referred By: Dee Dee Alonso Confirmed By:KELSEY ZAVALA MD
[2019-02-26 05:25] LABS: Anion Gap 8 (5-15); BUN 17 mg/dL (7-18); BUN/Creat Ratio 24.7 RATIO (10-20); Calcium,Total 8.5 mg/dL (8.5-10.1); Chloride 112 mmol/L (98-107); Creatinine, Serum 0.69 mg/dL (0.55-1.02); EST Glomerular Filtration Rate 93 mL/min (>60); Est Glom Filt Rate - Afr Amer 113 mL/min (>60); Estimated Creatinine Clearance 90.74 ml/min; Glucose 97 mg/dL (74-106); Potassium 3.7 mmol/L (3.5-5.1); Sodium Level 145 mmol/L (136-145)
[2019-02-26] MEDS: Aspirin 81 MG TAB.CHEW PO (06:00)
[2019-02-26 07:38] VITALS: BP 152/50; PULSE 75; RESP 16; TEMP 36.7; O2SAT 97
--- NOTE | 2019-02-26 07:44 | ECHOD_ITS ---
Reason For Study: Abn. EKG Procedure This was a 2D Doppler, Color Flow transthoracic echocardiogram. The exam was of adequate technical quality. Exam performed portable in patient room. Left Ventricle Normal LV size. Left ventricular systolic function is normal. The estimated ejection fraction is 65 %. Transmitral doppler flow suggestive of impaired relaxation of left ventricle. No regional wall motion abnormalities noted. Right Ventricle Normal RV size. Normal systolic function. Atria Borderline enlarged left atrium. Normal right atrium. Hypermobile atrial septum. Agitated saline contrast study considered positive for a right to left intra-atrial shunt. Mitral Valve There is no mitral annular calcification. Normal mitral valve. Trivial mitral valve insufficiency. Tricuspid Valve Normal tricuspid valve. Trivial tricuspid valve insufficiency. Right ventricular systolic pressure estimated to be 27 mmHg. Aortic Valve Trisinus/trileaflet aortic valve. Normal aortic valve. Pulmonic Valve The pulmonic valve is not well visualized. Trivial pulmonic valve insufficiency. Great Vessels Normal sized aortic root. Pericardium/Pleural No pericardial effusion. Medication Performed a rapid injection of agitated mix of 9 cc saline and 1cc air to assess for atrial septal defect. MMode/2D Measurements & Calculations LVIDd: 4.5 cm IVSd: 1.0 cm Ao root diam: 3.2 cm LVIDs: 2.9 cm LVPWd: 1.1 cm RVDd: 3.6 cm FS: 35.7 % LAV(MOD-bp): 64.1 ml LA A4 area: 19.6 cm2 LA dimension(2D): 3.6 cm LAV(MOD-bp) Indexed: 29.3 ml/m2 LAV(MOD-sp2): 60.9 ml LAV(MOD-sp4): 62.9 ml RA A4 area: 14.7 cm2 Doppler Measurements & Calculations MV E max saul: 92.4 cm/sec Lat Peak E' Saul: 8.1 cm/sec Med Peak E' Saul: 8.5 cm/sec MV A max saul: 103.4 cm/sec E/E' lat: 11.4 E/E' med: 10.9 MV E/A: 0.89 Ao V2 max: 159.7 cm/sec LV V1 max: 126.9 cm/sec PA V2 max: 98.0 cm/sec Ao max P.2 mmHg LV V1 max P.4 mmHg TR max saul: 244.4 cm/sec TR max P.9 mmHg Interpretation Summary Left ventricular systolic function is normal. The estimated ejection fraction is 65 %. Borderline enlarged left atrium. Trivial mitral valve insufficiency. Trivial tricuspid valve insufficiency. Trivial pulmonic valve insufficiency. Right ventricular systolic pressure estimated to be 27 mmHg. Transmitral doppler flow suggestive of impaired relaxation of left ventricle Agitated saline contrast study considered positive for a right to left intra-atrial shunt. Ordering Physician: Nora Pederson Referring Physician: Charo Grier M.D. Performed By: Nikkie Zuleta RDCS
[2019-02-26 07:50] VITALS: PULSE 61
--- NOTE | 2019-02-26 10:36 | STRESSREP ---
Stress Test Report Date: 02-26-19 Procedure: Pharmacologic stress nuclear imaging study Indications: Chest pain; abnormal ECG Consent: Per the patient Procedure: The patient underwent pharmacologic (Regadenoson) evaluation with a peak heart rate of 102 beats per minute (62 %predicted maximal heart rate) and a peak blood pressure of 158/80 mmHg. The baseline ECG demonstrated normal sinus rhythm. The peak pharmacologic ECG demonstrated no obvious ECG changes. There were no cardiac dysrhythmias pretest, during pharmacologic infusion, or recovery. There was no complaint of chest discomfort during pharmacologic infusion or recovery. The examination was discontinued secondary to completion of protocol. Impression: 1. Pharmacologic (Regadenoson) evaluation 2. Peak pharmacologic ECG with no obvious ECG changes. 3. There were no cardiac dysrhythmias pretest, during pharmacologic infusion, or recovery. 4. Nuclear images pending Myocardial perfusion imaging study: Technique: The patient was injected with 13.2 millicuries of technetium 99m Cardiolite and subsequently rest SPECT Cardiolite nuclear imaging was obtained in the horizontal long, vertical long, and short axis views. The patient underwent pharmacologic (Regadenoson) evaluation with a peak heart rate of 102 beats per minute (62 % percent predicted maximal heart rate) and a peak blood pressure of 158/80 mmHg. The patient was injected with 40 millicuries of technetium 99m Cardiolite and subsequently stress SPECT Cardiolite nuclear imaging was obtained in the horizontal long, vertical long, and short axis views. A gated Cardiolite study at peak stress was obtained. Interpretation: Rest and stress SPECT Cardiolite nuclear imaging status post realignment, normalization, and attenuation correction demonstrate relative uniform tracer uptake and myocardial perfusion appearing within normal limits. There is end systolic thickening and brightening. The gated Cardiolite study demonstrates myocardial thickening and inward wall motion. The reported LVEF is 72 %. Impression: 1. Rest and stress SPECT Cardiolite nuclear imaging demonstrate relative uniform tracer uptake and myocardial perfusion appearing within normal limits. 2. The gated Cardiolite study reports an LVEF of 72 %. This note was generated with [employer] software. It may contain incorrect words, spelling, and punctuation that were not noted in checking the note before signing.
[2019-02-26] MEDS: dilTIAZem CD 120 MG Capsule PO (10:45)
[2019-02-26] MEDS: predniSONE 10 MG Tablet PO (10:45)
[2019-02-26] MEDS: hydroCHLOROthiazide 25 MG Tablet PO (10:45)
[2019-02-26 13:30] VITALS: BP 147/79; PULSE 78; RESP 16; TEMP 36.8; O2SAT 97
--- NOTE | 2019-02-26 13:45 | PCM.DC ---
You will use the following diet at home:: Cardiac Your food should be the consistency of: Regular Your liquids should be the consistency of: Regular/Thin Discharge Activity: Return to Normal Activity Additional Instructions: Take the Crestor at bedtime every night. You will need to have your lipid panel and the liver panel and a CK checked in 6 weeks. I made you an appt to see Dr. Herring for Thursday 03/01 at 2:15. you can restart the prednisone tomorrow. Resume the instructions.....start with 2 tabs a day. Allergies/Adverse Reactions: Allergies midazolam [From Versed] Allergy (Verified 02/25/19 19:23) hypotensive codeine Adverse Reaction (Verified 02/25/19 17:13) Vomiting erythromycin base Adverse Reaction (Verified 02/25/19 17:13) Vomiting Medications to take at Discharge Diltiazem CD [Cardizem CD] 120 mg PO DAILY 02/25/19 Hydrochlorothiazide [Hctz] 25 mg PO DAILY 02/25/19 Meloxicam [Mobic] 7.5 mg PO DAILY 02/25/19 Multivitamin [Multivitamins] 1 ea PO DAILY 02/25/19 Prednisone See Taper PO UD 02/25/19 Rosuvastatin Calcium [Crestor] 10 mg PO QHS #30 tab 02/26/19 The following prescriptions were given: Rosuvastatin Calcium [Crestor] 10 mg PO QHS #30 tab Transmission Status: Pending to [facility] Primary Care Physician: Charo Grier DO [Primary Care Provider] - Please follow up with your Primary Care Physician in: as needed Test Results: Test results from this visit will be discussed in further detail at your follow-up appointment, if applicable. Proposed Discharge Date: 02/26/19
--- NOTE | 2019-02-26 14:01 | PCM.DC.SUM ---
Discharge Date and Diagnosis - Problem List Patient Problems: Active and Suspected Problems (Last Reviewed 02/24/19 @ 08:59 by Sallie Sunshine) Sciatica (Acute) Abnormal EKG (Acute) Chest pain (Acute) Date of Admission: 02/25/19 Date of Discharge: 02/26/19 - Primary Discharge Diagnosis Active and Suspected Problems (Last Reviewed 02/24/19 @ 08:59 by Sallie Sunshine) Chest pain (Acute) Abnormal EKG (Acute) - with Q waves in the inferior leads Sciatica (Acute) - Secondary Discharge Diagnosis Chronic Problems (Last Reviewed 02/24/19 @ 08:59 by Sallie Sunshine) Essential (primary) hypertension (Chronic) Bulging lumbar disc (Chronic) Segmental and somatic dysfunction of pelvic region (Chronic) Strain of muscle, fascia and tendon of lower back, initial encounter (Chronic) Segmental and somatic dysfunction of cervical region (Chronic) Segmental and somatic dysfunction of thoracic region (Chronic) Segmental and somatic dysfunction of lumbar region (Chronic) Radiculopathy of lumbar region (Chronic) Hospital Course and Treatment Imaging Results: 02/26/19 05:55 Nuclear Stress Test - Chemical [NM] AM (NON MEDS) 02/26/19 07:44 Echo Complete [ECHO] Routine Clinical Impression(s) from Imaging Studies Chest X-Ray 02/25/19 17:30 IMPRESSION: Normal x-ray examination of the chest. Electronically Signed: Baljinder Arzate DO at 17:57 EDT Tel , Service support , none Operations: None Procedures: 2-D Echocardiogram - Interpretation Summary Left ventricular systolic function is normal. The estimated ejection fraction is 65 %. Borderline enlarged left atrium. Trivial mitral valve insufficiency. Trivial tricuspid valve insufficiency. Trivial pulmonic valve insufficiency. Right ventricular systolic pressure estimated to be 27 mmHg. Transmitral doppler flow suggestive of impaired relaxation of left ventricle Agitated saline contrast study considered positive for a right to left intra-atrial shunt., Stress test - Impression: 1. Rest and stress SPECT Cardiolite nuclear imaging demonstrate relative uniform tracer uptake and myocardial perfusion appearing within normal limits. 2. The gated Cardiolite study reports an LVEF of 72 %. Summary of Care Provided: Mrs. Shaffer is a 58 YO female with a past medical history of back pain, bulging lumbar disks, lumbar radiculitis/radiculopathy and hypertension who presented to the emergency department at [facility] on 02/25/2019 complaining of left chest pain that radiated to her jaw and the left neck. She denied diaphoresis, nausea, shortness of breath. She denied palpitations. She had mistakenly taken 120 mg of Prednisone the preceding day rather than 40 mg which was prescribed for sciatica. She has no personal history of coronary artery disease but there is a family history of coronary disease in her father. EKG in the emergency room showed normal sinus rhythm with Q waves in the inferior leads possibly secondary to prior inferior wall myocardial infarction. There was no ST segment elevation and no significant or suspicious ST or T wave changes. Chest x-ray showed no acute cardiopulmonary findings. Initial troponin was less than 0.015. She was admitted to a monitored bed on PCU and the chest pain protocol was initiated. Serial troponins were negative. Lipid panel showed a triglyceride level of 110 and a total cholesterol of 241. The LDL was 159 and the HDL was 60. She underwent a pharmacologic nuclear stress test on 02/26/2019 that demonstrated relatively uniform tracer uptake and myocardial perfusion appearing within normal limits. The gated nuclear ejection fraction was 72%. An echocardiogram showed no wall motion abnormalities and the estimated ejection fraction was 65%. There was borderline enlarged left atrium. There is no significant valvular heart disease and the right ventricular systolic pressure was estimated at 27. Transmitral Doppler flow suggested impaired relaxation of the left ventricle. An agitated saline contrast study was considered positive for a right to left intra-atrial shunt. She was discharged home with a prescription for Crestor 10 mg and will take 1 nightly. She will need follow-up lipid panel and liver panel in 6 weeks. An appt was made for her to see Dr. Herring on Friday03/01/19 to be evaluated for a possible Lumbar epidural. She has an appt next week to begin PT. She was advised to try and lose some weight. She was instructed not to left > 5 lbs and to avoid bending and twisting. She will follow up in the office with Dr. Grier as needed. PHYSICAL EXAM: GENERAL: alert, oriented X 3, Cooperative, NAD ORAL: moist mucosa, no mucosal lesions NECK: No JVD, supple, trachea midline LUNGS: CTA, symmetric chest expansion HEART: RRR, Normal S1 and S2, no rub, no gallop ABDOMEN: soft, NT, ND, BS present, no guarding with palpation EXTREMITIES: no edema, no cyanosis, no calf tenderness SKIN: No rashes, no breakdown NEUROLOGIC: no focal neurologic deficits PSYCH: appropriate, normal affect, pleasant This note was generated with [employer]ision[employer] dictation software. It may contain incorrect words, spelling, and punctuation that were not noted in checking the note before signing. Patient Problems: Active and Suspected Problems (Last Reviewed 02/24/19 @ 08:59 by Sallie Sunshine) Sciatica (Acute) Abnormal EKG (Acute) Chest pain (Acute) - Physical Exam Vital Signs Temp Pulse Resp BP Pulse Ox 98.2 F 78 16 147/79 H 97 02/26/19 13:30 02/26/19 13:30 02/26/19 13:30 02/26/19 13:30 02/26/19 13:30 Oxygen Delivery Method Room Air Weight: 235 lb 10.786 oz Body Mass Index (BMI) 35.8 Intake and Output for Last 24 Hours 02/24/19 02/25/19 02/26/19 23:59 23:59 23:59 Intake Total 582.5 / 882.5 1716.66 / 1716.66 Balance 582.5 / 882.5 1716.66 / 1716.66 Laboratory Tests Past 24 Hrs 02/25/19 02/25/19 02/25/19 17:15 17:15 17:15 WBC 14.5 H RBC 5.00 Hgb 15.2 H Hct 44.5 MCV 89.0 MCH 30.4 MCHC 34.2 RDW Std Deviation 40.5 RDW Coeff of Papo 12.4 Plt Count 408 MPV 8.9 Immature Gran % (Auto) 0.400 Neut % (Auto) 82.0 H Lymph % (Auto) 12.6 L [place] % (Auto) 4.8 Eos % (Auto) 0.0 Baso % (Auto) 0.2 Absolute Neuts (auto) 11.9 H Absolute Lymphs (auto) 1.83 Nucleated RBC % 0 Sodium 136 Potassium 3.4 L Chloride 105 Carbon Dioxide 24.0 Anion Gap 7 BUN 16 Creatinine 0.96 Estim Creat Clear Calc 65.22 Est GFR (MDRD) Af Amer 77 Est GFR (MDRD) Non-Af 64 BUN/Creatinine Ratio 16.7 Glucose 143 H Calcium 9.7 Troponin I < 0.015 Triglycerides 110 Cholesterol 241 H LDL Cholesterol 159 H VLDL Cholesterol 22 HDL Cholesterol 60 02/25/19 02/25/19 02/26/19 20:40 23:08 04:28 WBC 8.6 RBC 4.20 Hgb 12.7 Hct 38.0 MCV 90.5 MCH 30.2 MCHC 33.4 RDW Std Deviation 41.3 RDW Coeff of Papo 12.6 Plt Count 313 MPV 9.0 Immature Gran % (Auto) 0.100 Neut % (Auto) 56.4 Lymph % (Auto) 32.7 [place] % (Auto) 9.1 Eos % (Auto) 1.2 Baso % (Auto) 0.5 Absolute Neuts (auto) 4.8 Absolute Lymphs (auto) 2.80 Nucleated RBC % 0 Sodium Potassium Chloride Carbon Dioxide Anion Gap BUN Creatinine Estim Creat Clear Calc Est GFR (MDRD) Af Amer Est GFR (MDRD) Non-Af BUN/Creatinine Ratio Glucose Calcium Troponin I < 0.015 < 0.015 Triglycerides Cholesterol LDL Cholesterol VLDL Cholesterol HDL Cholesterol 02/26/19 04:28 WBC RBC Hgb Hct MCV MCH MCHC RDW Std Deviation RDW Coeff of Papo Plt Count MPV Immature Gran % (Auto) Neut % (Auto) Lymph % (Auto) [place] % (Auto) Eos % (Auto) Baso % (Auto) Absolute Neuts (auto) Absolute Lymphs (auto) Nucleated RBC % Sodium 145 Potassium 3.7 Chloride 112 H Carbon Dioxide 25.0 Anion Gap 8 BUN 17 Creatinine 0.69 Estim Creat Clear Calc 90.74 Est GFR (MDRD) Af Amer 113 Est GFR (MDRD) Non-Af 93 BUN/Creatinine Ratio 24.7 H Glucose 97 Calcium 8.5 Troponin I Triglycerides Cholesterol LDL Cholesterol VLDL Cholesterol HDL Cholesterol Discharge Activity: Return to Normal Activity Home Medications: Medications to take at Discharge Diltiazem CD [Cardizem CD] 120 mg PO DAILY 02/25/19 Hydrochlorothiazide [Hctz] 25 mg PO DAILY 02/25/19 Meloxicam [Mobic] 7.5 mg PO DAILY 02/25/19 Multivitamin [Multivitamins] 1 ea PO DAILY 02/25/19 Prednisone See Taper PO UD 02/25/19 Rosuvastatin Calcium [Crestor] 10 mg PO QHS #30 tab 02/26/19 Following Prescrptions Were Given to Patient: Rosuvastatin Calcium [Crestor] 10 mg PO QHS #30 tab Transmission Status: Received by [facility] Primary Care Physician: Charo Grier DO [Primary Care Provider] - Please follow up with your Primary Care Physician in: as needed Disposition: Home Minutes spent on discharge:: 30 Patient Condition:: Good Medical Necessity - Tobacco Use Smoking Status: Never smoker Tobacco Use: Non-smoker Meaningful Use Info Meaningful Use Diagnoses (Choose all that apply): None applicable Code Visit OBSV E&M: 40247 Observation care discharge
== END 2019-02-26 13:52 | disposition home or self-care (01) ==
LOC: ED 17:45 → PCU 02-26 05:04
PROVIDERS: Admitting Provider Student in an Organized Health Care Education/Training Program; Emergency Provider Emergency Medicine; Family Provider Internal Medicine; PCP Internal Medicine; Referring Provider Student in an Organized Health Care Education/Training Program; Visit Provider Internal Medicine
DX: R07.89 Other chest pain (principal); R94.31 Abnormal electrocardiogram [ECG] [EKG]; I10 Essential (primary) hypertension; G89.29 Other chronic pain; G43.909 Migraine, unspecified, not intractable, without status migrainosus; M99.01 Segmental and somatic dysfunction of cervical region; M99.03 Segmental and somatic dysfunction of lumbar region; M99.05 Segmental and somatic dysfunction of pelvic region; M99.02 Segmental and somatic dysfunction of thoracic region; E87.6 Hypokalemia; Z79.899 Other long term (current) drug therapy; Z79.52 Long term (current) use of systemic steroids; R06.02 Shortness of breath
CPT/HCPCS: 36415; 71045; 78452; 80048; 80061; 84484; 85025; 93005; 93017; 93306; 96360; 96361; 99218; 99285; A9500; J7030; Q9957; A4216; G0378; J2785

== ENCOUNTER → 2019-03-05 07:38 | Outpatient (CLI) | payer OTHER, SELFPAY ==
[2018-07-01 11:46] VITALS: BMI 36.1
[2019-03-01 13:52] VITALS: BMI 36.6
--- NOTE | 2019-03-04 17:39 | BI_ITS ---
MAMMOGRAPHY - BILATERAL SCREENING REASON FOR EXAM: Female, 58 years old. Routine annual screening examination. PERTINENT HISTORY: Non-contributory. TECHNIQUE: Digital bilateral breast wenceslao (3D mammographic acquisition) in the CC and MLO projections. 2-D mediolateral oblique (MLO) and craniocaudad (CC) views of both breasts were obtained. CAD: Full Field Digital Mammography with Computer Added Detection was performed. COMPARISON: Comparison is made with prior study dated September 20, 2016 and September 07, 2014. FINDINGS: Breast Composition: The breasts are heterogeneously dense, which may obscure small masses. There are no dominant masses or suspicious calcifications. Stable small bilateral axillary lymph nodes. No other significant abnormalities are identified. There has been no significant change since the prior study. BI/SCREEN MAMM (CAD) W/WENCESLAO BILAT IMPRESSION: Stable bilateral screening mammogram. Yearly follow-up mammogram recommended. (A) ASSESSMENT CATEGORY: BIRADS Category 2: Benign. A letter regarding these results will be sent to the patient by the facility within 30 days. Approximately 10% of breast cancers are not detected by mammography. A normal mammogram should not delay biopsy of a clinically suspicious abnormality. [id number] Electronically Signed: Vadim Wei, at 8:52 EDT , Service support ,
== END ==
PROVIDERS: Family Provider Nurse Practitioner; PCP Nurse Practitioner; Referring Provider Obstetrics & Gynecology; Visit Provider Obstetrics & Gynecology
DX: Z12.31 Encounter for screening mammogram for malignant neoplasm of breast (principal)
CPT/HCPCS: 77063; 77067

== ENCOUNTER 2019-05-20 09:30 | Outpatient (RCR) | payer OTHER, SELFPAY ==
[2019-01-25 12:23] VITALS: BMI 36.1
--- NOTE | 2019-03-03 16:47 | HP.PTEVAL_ITS ---
Patient's Visit Information WEST POSADAS is a 58 year old F referred to Physical Therapy by Nora Ko NP- C with a diagnosis of LOW BACK PACK. Date of Evaluation: 02/24/19 Physical Therapist: Lino Littlejohn, PT, Cert MDT, OCS - Visit Plan Frequency: 2x /Week Duration: 4 Weeks Plan: PT INTERVETIONS TANESHA EX'S,PROGRESS TO DLS ,POSTURAL EX'S WHEN APPROPRIATE. MODALTIES,MANUAL THERAPY - Subjective Findings: This 58 y/o female presents to physical therapy with LBP . Patient has had lumbar pain last fall ,seen DR Gonzales which helped. Patient had fall in bathroom landed on knee due to buckled. Patient sees DR Hoff for knee. Patient pain in left lower back region radiates below knee lateral . Aggraveting sitting,bending,lifting affects function job demands and housework . Alleviating short walks /standing. Patient c/o pain ache and weakness left leg. Coughing/sneezing-. Bowel/bladder-. Patient has had prior PT last year and MRI showed prutrusion left disc.Patient pain affects daily function and job demnads and housework tasks. Patient pain affects QOL. No prior trauma otherthan recent fall.See KISHORE duvall,predisone pack. SOCIAL: . VOCATION: [employer] - Pain Left Back Pain Intensity (Out of 10): 5 Pain Intensity Range: 10 - Objective POSTURE: mild foward posture. GAIT: normal jony slow jony antalgic gait. PALAPTION: TENDER LS. SYMMTRIES:align. NEURO: denies parathesia/tingling,reflexes L3-4,L4-5,L5-S1,mytome weakness left leg. MMT: quads L 4-/5,R 4/5,hip flexion L 3+/5, R 4-/5,ANKLE 4/5 HAMS 4/5. LUMBAR ROM: flexion mod/severe ,extension min/mod loss,side glides min lss. FLEXABLITY: hams mod left + slr - Special Tests L/S Slump test left side: Positive L/S Left Straight Leg Raise: Negative L/S Right Straight Leg Raise: Positive - Goals Goal 1:: Patient to be Independant with HEP. Goal Time Frame: 4-6 Weeks Goal 2:: Patient to be Independant with posture/body mechanics Goal Time Frame: 4-6 Weeks Goal 3:: Patient to decrease lumbar pain and radicular symptoms by 50% > to improve function. Goal Time Frame: 2-4 Weeks Goal 4:: Patient to improve lumbar ROM for function of recovery Goal Time Frame: 4-6 Weeks Goal 5:: Patient to increase strength left leg by 4/5 to improve gait Goal Time Frame: 4-6 Weeks Goal 6:: Patient to imporove Back owestry score by 5-8 points > to improve QOL. Goal Time Frame: 4-6 Weeks - Rehabilitation Potential Physical Therapy Diagnosis: This 58 y/o female presents to physical therapt with lumbar derrangement below knee with h/o protrusion with pain with flexion ,decreased with extension ,unable function of recovery ,affects job demnads /ADL'S. Rehabilitation Potential: Good - Anticipated Interventions Patient/Client Instruction: Educate patient on: Condition, Plan of Care For the Purpose of:: To decrease pain, To increase ROM, To improve muscle performance and motor function, To increase tolerance to activity/condition/position, To improve ability of physical actions for home/community/work/leisure, To improve health of tissue, To decrease soft tissue restriction, To increase flexibility/ROM, To improve ability to perform tasks related to life management Therapeutic Exercise to Include: Strength training, Postural training, Flexibilty training, Dynamic Lumbar Stabilization, Tanesha Exercises For the Purpose of:: To decrease pain, To increase ROM, To improve muscle performance and motor function, To increase tolerance to activity/condition/position, To improve ability of physical actions for home/community/work/leisure, To improve health of tissue, To decrease soft tissue restriction, To increase flexibility/ROM, To reduce risk of recurrence, To improve ability to perform tasks related to life management Manual Therapy Techniques to Include: Mobilization Comment: LUMBAR For the Purpose of:: To decrease pain, To increase ROM, To improve nutrient de livery to tissue, To increase oxygenation perfusion, To improve health of tissue, To decrease soft tissue restriction TENS: Yes IF ES: Yes Cryotherapy (ice pack, ice massage): Yes Thermo therapy (hot pack): Yes Ultrasound (thermal/non thermal): Yes For the Purpose of:: To decrease pain, To increase ROM, To improve nutrient delivery to tissue, To increase oxygenation perfusion, To improve health of tissue, To decrease soft tissue restriction Thank you for the opportunity to evaluate your patient. For Medicare and Medicare HMO plans, please review the plan of care and approve it. It will need to be FAXED BACK to us at [phone] for Medicare purposes. For Medicare only, by signing this I certify the plan of care. Please let me know if there are questions or concerns regarding this plan of c are. Physician Signature: Date:
--- NOTE | 2019-05-20 10:07 | HP.PTDCSUM_ITS ---
HP - PT D/C Summary It has been my pleasure to treat WEST POSADAS under orders from Nora Ko, KISHORE- C, for the diagnosis of LOW BACK PACK for a total of 20 visit(s). Discharge Date: 05/20/19 Please see the following information for a summary of their discharge status. - Subjective Subjective: Doing good. Work can cause back pain soreness. Able to do all ADLS. - Pain Left Back Pain Intensity (Out of 10): 0 - Overall Improvement % Improvement: 90 - Objective Objective/Function: POSTURE: mild foward posture. GAIT: RECIPROCAL PATTERN. MMT: QUADS/HAMS/HIP/ANKLE 4/5. LUMBAR ROM: FLEXION MIN/MOD LOSS ,EXTENSION MIN LOSS,SIDE GLIDES MIN LOSS - Goals Goal 1:: Patient to be Independant with HEP. Goal Progress: Goal Met Goal 2:: Patient to be Independant with posture/body mechanics Goal Progress: Goal Met Goal 3:: Patient to decrease lumbar pain and radicular symptoms by 50% > to improve function. Goal Progress: Goal Met Goal 4:: Patient to improve lumbar ROM for function of recovery Goal Progress: Goal Met Goal 5:: Patient to increase strength left leg by 4/5 to improve gait Goal Progress: Goal Met Goal 6:: Patient to imporove Back owestry score by 5-8 points > to improve QOL. Goal Progress: Goal Met - Plan Plan: D/C HEP - D/C Information Discharge Comments: HEP If there are questions or concerns regarding this patient's physical therapy, please feel free to call me at [phone]. Thank you for the referral of this patient. Sincerely, Lino Littlejohn, PT, Cert MDT, OCS
== END 2019-05-20 19:00 | disposition home or self-care (01) ==
LOC: PT 09:30
PROVIDERS: Family Provider Internal Medicine; PCP Internal Medicine; Referring Provider Nurse Practitioner; Visit Provider Nurse Practitioner
DX: M54.9 Dorsalgia, unspecified (principal); W19.XXXD Unspecified fall, subsequent encounter
CPT/HCPCS: 97014; 97035; 97110; 97162; 97530; G0283

== ENCOUNTER 2019-06-23 12:00 | Outpatient (RCR) | payer OTHER, SELFPAY ==
[2019-04-08 09:15] VITALS: BMI 36.6
--- NOTE | 2019-06-15 13:41 | HP.PTEVAL ---
Patient's Visit Information WEST POSADAS is a 59 year old F referred to Physical Therapy by Batsheva Gonzales DC with a diagnosis of RIGHT SHOULDER PAIN. Date of Evaluation: 06/14/19 Physical Therapist: Marlene Alonso PT, Cert MDT - Visit Plan Frequency: 2-3x /Week Duration: 4-6 Weeks Plan: RIGHT UE MODALITIES NEEDED. RIGHT UE ROM, STRETCHING AND STRENGTHENING TO HELP MEET SET GOALS. 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 Present symptoms: RIGHT SHOULDER PAIN, RIGHT SHOULDER BLADE PAIN, RIGHT BICEP PAIN. Present since: COUPLE WEEKS. H/O OF MORE MILD PAIN IN SHLD OFF AND ON. Pain Scale: Worst - 6/10 Least - 0/10. Currently: 09/09 WITH MVMT. Commenced as a result of: NO APPARENT REASON OTHER THAN WORK - ON COMPUTER. GETS WORSE HER WORK WEEK PROGRESSES. Symptoms at onset: RIGHT SHOULDER. Worse: TRYING TO RAISE IT ESPECIALLY OUT TO THE SIDE. TRYING TO CARRY THINGS LIKE ICE TEA JUG. WASHING HAIR. 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 Better: RESTING IT AND NOT BEING ON A COMPUTER. NOT STRAINING OR DOING A LOT OF LIFTING. Disturbed sleep: YES - IF ROLLS ON RIGHT SIDE. Previous history/Previous treatment: UNREMARKABLE FOR SHOULDER AND NECK. Dizziness: NO. Tinnitis: CHRONIC. Nausea: NO. Shortness of Breath: NO. Difficulty Swollowing: NO. Gait: NORMAL. Accidents: NO. Unexplained weight loss: NO. Imaging: NO. PMH/Recent major surgery: UNREMARKABLE OTHER THAN HTN AND MOBIC FOR BACK PROBLEMS. - Objective THIS PATIENT AMBULATES INDEP'LY INTO PT WITH NO GROSS DEVIATIONS NOTED. HER SITTING AND STANDING POSTURE ARE POOR. SHE HAS FH AND RS'S. NO TORTICOLLIS. CERVICAL ROM IS WFL AND TESTING DOES NOT PROVOKE RIGHT UE SX'S. LEFT UE ROM AND STRENGTH IS WNL. RIGHT UE STRENGTH IS 5/5 WITH MMT'ING BUT HER RIGHT SHLD FLEX IS APPROX 20% LIMITED IN LYING COMPARED TO LEFT SHOULDER AND SHE HAS PAIN AT THE END OF THE AVAILABLE ROM. SHE IS NOT TENDER OR SWOLLEN IN THE RIGHT RIGHT SHLD OR UPPER ARM REGION. SHE DOES HAVE SUDHA SCAP WEAKNESS GRADED 4/5. SUDHA UE LIGHT TOUCH SENSATION IS INTACT AND SYMMETRICAL AND SUDHA UE DTR'S ARE 2/3. HEP WAS INITIATED WITH SUPINE AND STANDING WAND FLEXION. PATIENT IS A GOOD CANDIDATE FOR PHYSICAL THERAPY WITH POC BELOW. - Goals Goal 1:: DECREASE C/O RIGHT SHOULDER PAIN Goal Time Frame: 4-6 Weeks Goal 2:: IMPROVE LIFTING, REACHING, WORK AND HOMEMAKING FUNCTION Goal Time Frame: 4-6 Weeks Goal 3:: PATIENT WILL BE INDEP WITH A HEP FOR CONTINUED IMRPOVEMENT ONCE FORMAL PHYSICAL THERAPY CONCLUDES. Goal Time Frame: 4-6 Weeks - Rehabilitation Potential Rehabilitation Potential: Good - Anticipated Interventions Patient/Client Instruction: Educate patient on: Condition, Plan of Care, Risk Factors, Benefits of Fitness Program For the Purpose of:: To improve self management Therapeutic Exercise to Include: Strength training, Flexibilty training, Passive ROM, Active ROM, Scapular Strength/Stabilization For the Purpose of:: To decrease pain, To increase ROM, To improve muscle performance and motor function, To increase tolerance to activity/condition/position, To improve ability of physical actions for home/community/work/leisure Manual Therapy Techniques to Include: Mobilization, Passive ROM Comment: RIGHT SHOULDER For the Purpose of:: To increase ROM, To improve nutrient delivery to tissue TENS: Yes Cryotherapy (ice pack, ice massage): Yes Thermo therapy (hot pack): Yes Ultrasound (thermal/non thermal): Yes For the Purpose of:: To decrease pain, To improve nutrient delivery to tissue Thank you for the opportunity to evaluate your patient. For Medicare and Medicare HMO plans, please review the plan of care and approve it. It will need to be FAXED BACK to us at [phone] for Medicare purposes. For Medicare only, by signing this I certify the plan of care. Please let me know if there are questions or concerns regarding this plan of care. Physician Signature: Date:
--- NOTE | 2019-07-09 13:27 | HP.PTDCNRP_ITS ---
HP - Discharge Summary (1) - Patient Information WEST POSADAS was seen in my office for initial evaluation on 06/14/19. The following Plan of Care was established for this patient: Initial Frequency: 2-3x /Week Initial Duration: 4-6 Weeks - Anticipated Interventions Patient/Client Instruction: Educate patient on: Condition, Plan of Care, Risk Factors, Benefits of Fitness Program For the Purpose of:: To improve self management Therapeutic Exercise to Include: Strength training, Flexibilty training, Passive ROM, Active ROM, Scapular Strength/Stabilization For the Purpose of:: To decrease pain, To increase ROM, To improve muscle performance and motor function, To increase tolerance to activity/condition/position, To improve ability of physical actions for home /community/work/leisure Manual Therapy Techniques to Include: Mobilization, Passive ROM Comment: RIGHT SHOULDER For the Purpose of:: To increase ROM, To improve nutrient delivery to tissue TENS: Yes Cryotherapy (ice pack, ice massage): Yes Thermo therapy (hot pack): Yes Ultrasound (thermal/non thermal): Yes For the Purpose of:: To decrease pain, To improve nutrient delivery to tissue This patient was last seen in our office . Pertinent comments regarding their Physical therapy will appear below: This patient has not returned to Physical Therapy and is appropriate to return to MD for further follow-up as needed. At this point I will be discontinuing this patient from physical therapy. I would be happy to see this patient again in the future if found appropriate by the physician. Thank you! Marlene Alonso, PT, Cert MDT
== END 2019-06-23 19:00 | disposition home or self-care (01) ==
LOC: PT 12:00
PROVIDERS: Family Provider Internal Medicine; PCP Internal Medicine; Referring Provider Chiropractor; Visit Provider Chiropractor
DX: M75.40 Impingement syndrome of unspecified shoulder (principal)
CPT/HCPCS: 97035; 97110; 97161

== ENCOUNTER 2019-11-15 16:30 | Outpatient (RCR) | payer OTHER, SELFPAY ==
[2019-09-17 08:37] VITALS: BMI 36.6
--- NOTE | 2019-09-27 17:17 | HP.PTEVAL_ITS ---
Patient's Visit Information WEST POSADAS is a 59 year old F referred to Physical Therapy by Charo Grier DO with a diagnosis of BACK PAIN AND MUSCLE SPASMS. Date of Evaluation: 09/27/19 Physical Therapist: Marlene Alosno, PT, Cert MDT - Visit Plan Frequency: 2-3x /Week Duration: 4-6 Weeks Plan: AQUATIC THERAPY FOR PAIN RELEIF, POSTURE CORRECTION/STRENGTHENING, INSTRUCTION IN APPROPRIATE BODY MECHANICS AND ACTIVITY MODIFICATIONS. DLS STARTING WITH A NEUTRAL SPINE PROGRESSING ROM TOLERATED. SUDHA LE ROM, STRETCHING AND STRENGTHENING. HEP INSTRUCTION. 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 Present symptoms: LOW BACK PAIN. RADIATES INTO LEFT BUTTOCK AND LEFT THIGH. LEFT THIGH GETS NUMB. Present since: REALLY FLARED UP ABOUT 2 WEEKS AGO. Pain Scale: WORST 6/10, LEAST 2/10. Currently: 3/10. Commenced as a result of: NO APPARENT REASON OTHER THAN SITTING AT WORK AND TRYING TO EX AT HOME WITH LIGHT WEIGHTS. Symptoms at onset: LEFT LOW BACK. Worse: SITTING, STANDING, BENDING, LIFTING, SLEEPING - WAKES UP EVERY COUPLE HOURS, HOUSEWORK. WORKING 5 DAYS A WEEK CAUSES A LOT OF INCREASED PAIN. Better: LYING ON THE COUCH, MEDROL DOSE TORI. REALLY TAKING THE LOAD OFF LYING DOWN HELPS. SITTING WITH SUPPORT IN LOW BACK. Disturbed sleep: YES. Previous history/Previous treatment: CHIROPRACTOR AND PHYSICAL THERAPY. SEE PT HERNANDO 2015 FOR FURTHER HISTORY. FLARE UP LAST FALL - LEFT LEG GAVE OUT ON HER AND SHE FELL. PAIN MGMT CONSULT A FEW MONTHS AGO BUT GOT BETTER AND HELD OFF ON INJECTION. Treatment this episode: MEDROL DOSE PACK UNTIL LAST FRIDAY AND REALLY HELPED A LOT. Coughing/sneezing/straining: UNKNOWN. Gait: PATIEN REPORTS FAVORING HER LLE BUT ALSO HAS LEFT KNEE PROBLEMS - TRICKY KNEE. LEFT LE FEELS HEAVIER THAN RIGHT. Difficulty initiating urinatin: NO. Accidents: FALL APPROX JAN 2019. Unexplained weight loss: NO. Imaging: MRI LUMBAR JUN 2018 - MILD STENOSIS AND MULTI LEVEL BULGING. PMH: HTN. Recent major surgery: UNREMARKABLE. OTHER: HAS FOUND LAND AND WATER EXERCISE HELPFUL IN THE PAST. - Objective Sitting/Standing Posture: POOR. PATIENT IS SITTING AND STANDING IN AN ALMOST HYPER EXTENDED POSITION. RIGID POSTURE. Lordosis: NORMAL TO EXCESSIVE. Lateral shift: NO. Relevant shift: NO. Active Correction of posture: WORSE. Other Observations: INDEP ANTALGIC GAIT INTO PT TODAY WITH DECREASED CADANCE AND MILD LIMP ON LLE. TRUNK IS VERY GUARDED WITH ALL MVMTS. Motor deficit: SUDHA LE'S GROSSLY 5/5 WITH MMT'ING. Sensory deficit: SUDHA LE LIGHT TOUCH SENSATION INTACT AND SYMMETRICAL. ROM deficit: MILD SUDHA LE HIP, HS AND GASTOC SOLEUS TIGHTNESS. Dural Signs: POSITIVE LLE. NEGATIVE RIGHT LE. Lumbar mvmt loss: flex - MOD TO EVE. ext - EVE. R SG - EVE. L SG - EVE. PATIENT WITH C/O INCREASED LOW BACK PAIN WITH LUMBAR ROM TESTING ALL PLANES. NO EFFECT ON LLE TODAY. Core strength: POOR. Palpation: TENDERNESS WITH LIGHT PALPATION OF ENTIRE LUMBAR AND SACRAL REGIONS BUT NOT THORACIC SPINE. TREATMENT: NEUROMUSCULAR REEDUCATION - RETRAINING OF MVMT AND POSTURE FOR SITTING, LYING AND STANDING ACTIVITIES. HEP INSTRUCTION FOR SKTC AND LTR STRETCHING T OLERATED. PATIENT RESPONDED WELL TO THESE STRETCHES IN THE CLINIC TODAY AND IS A GOOD CANDIDATE FOR AQUATIC THERAPY - Goals Goal 1:: DECREASE C/O BACK PAIN Goal Time Frame: 4-6 Weeks Goal 2:: IMPROVE PERSONAL CARE, WALKING, SOCIAL LIFE, TRAVEL, HOMEMAKING, BENDING, LIFTING, TWISTING, SITTING, STANDING, ADL, SLEEP AND WORK FUNCTION Goal Time Frame: 4-6 Weeks Goal 3:: INSTRUCT IN PROPHYLAXIS Goal Time Frame: 4-6 Weeks - Rehabilitation Potential Rehabilitation Potential: Good - Anticipated Interventions Patient/Client Instruction: Educate patient on: Condition, Plan of Care, Risk Factors, Benefits of Fitness Program For the Purpose of:: To improve self management Therapeutic Exercise to Include: Strength training, Endurance training, Body mechanics, Postural training, Flexibilty training, Neuromotor development, In an aquatic setting, Dynamic Lumbar Stabilization For the Purpose of:: To decrease pain, To increase ROM, To improve muscle performance and motor function, To increase tolerance to activity/condition/position, To improve ability of physical actions for home /community/work/leisure Thank you for the opportunity to evaluate your patient. For Medicare and Medicare HMO plans, please review the plan of care and approve it. It will need to be FAXED BACK to us at [phone] for Medicare purposes. For Medicare only, by signing this I certify the plan of care. Please let me know if there are questions or concerns regarding this plan of care. Physician Signature: Date:
--- NOTE | 2019-11-15 16:59 | HP.PTDCSUM ---
It has been my pleasure to treat WEST POSADAS referred by Dr. Charo Grier DO, with the diagnosis of BACK PAIN AND MUSCLE SPASMS for a total of 15 visit(s). Discharge Date: Please see the following information for a summary of their discharge status. Subjective: PATIENT REPORTS SHE IS DOING GOOD. STATES SHE HAS ALREADY GONE TO THE [facility] TO DO HER POOL EX'S TWICE AND IT WENT WELL. PATIENT REPORTS SITTING AT WORK IS STILL A PROBLEM BUT HER TOLERANCE FOR STANDING, WALKING AND HOUSEWORK IS BETTER. 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 HOME STRETCHES REALLY SEAM TO BE KICKING IN - I AM MORE FLEXIBLE NOW. LESS PAIN OVER-ALL. STRONGER - ABLE TO CARRY MORE GROCERIES. EVEN FORGOT TO TAKE MALOXAM FOR 2 DAYS FOR THE FIRST TIME IN 2 YEARS. PATIENT REPORTS HAVING THE HOUR OF THERAPY IN THE POOL VS 1/2 HOUR SEEMED TO REALLY HELP THIS TIME. Lumbar Spine Pain Intensity (Out of 10): 2 L knee Pain Intensity (Out of 10): 3 % Improvement: 75 Objective/Function: PATIENT WAS SEEN TODAY FOR RE-ASSESSMENT OF PROGRESS TOWARD THE SET PT GOALS AND THE NEED FOR FURTHER PHYSICAL THERAPY VS READINESS FOR DISCHARGE. UPON EXAM TODAY ALL GOALS HAVE BEEN MET AND PATIENT IS APPROPRIATE FOR DISCHARGE TO INDEP EX. DISCHARGE INSTRUCTIONS GIVEN. INSTRUCTED IN 4 OPTIONS FOR MINI SQUATS AND APPROPRIATE TECHNIQUE BOTH IN AND OUT OF THE WATER UPON PATIENT QUESTIONING. PATIENT COMMUNICATED A GOOD UNDERSTANDING OF ALL INSTRUCTIONS AFTER GIVEN. Dural Signs: NEGATIVE SUDHA LE'S NOW. Lumbar mvmt loss: flex - MIN TO MOD. ext - MOD. R SG - MOD. L SG - MOD. PATIENT DENIES INCREASED PAIN WITH TESTING TODAY. Goal 1:: DECREASE C/O BACK PAIN Goal Progress: Goal Met Goal 2:: IMPROVE PERSONAL CARE, WALKING, SOCIAL LIFE, TRAVEL, HOMEMAKING, BENDING, LIFTING, TWISTING, SITTING, STANDING, ADL, SLEEP AND WORK FUNCTION Goal Progress: Goal Met Goal 3:: INSTRUCT IN PROPHYLAXIS Goal Progress: Goal Met Plan: D/C TO INDEP EX. PATIENT AGREEABLE. If there are questions or concerns regarding this patient's physical therapy, please feel free to call me at [phone]. Thank you for the referral of this patient. Sincerely, Marlene Alonso, PT, Cert MDT
== END 2019-11-15 19:00 | disposition home or self-care (01) ==
LOC: PT 16:30
PROVIDERS: PCP Internal Medicine; Referring Provider Internal Medicine; Visit Provider Internal Medicine
DX: M54.5 Low back pain (principal); M62.838 Other muscle spasm
CPT/HCPCS: 97112; 97113; 97162; 97164

== ENCOUNTER → 2020-01-12 10:14 | Outpatient (CLI) | payer OTHER, SELFPAY ==
[2019-09-17 08:37] VITALS: BMI 36.6
[2020-01-12 10:53] LABS: Color, Urine Straw (Yellow); Glucose, Dipstick Normal (Normal); Ketone-Dipstick Negative (Negative); Leukocyte Esterase-Dipstick 500 /ul (Negative); Nitrite-Dipstick Negative (Negative); Occult Blood-Urine 150 /ul (Negative); Protein-Dipstick Negative (Negative); Specific Gravity, Urine 1.005 (1.002-1.030); Urine Bilirubin Dipstick Negative (Negative); Urine Clarity Clear (Clear); Urine Urobilinogen Normal (Normal)
== END ==
PROVIDERS: PCP Internal Medicine; Referring Provider Internal Medicine; Visit Provider Internal Medicine
DX: R35.0 Frequency of micturition (principal)
CPT/HCPCS: 81002; 87086; 87088

== ENCOUNTER → 2020-07-24 12:02 | Outpatient (CLI) | payer OTHER, SELFPAY ==
[2019-09-17 08:37] VITALS: BMI 36.6
--- NOTE | 2020-07-24 12:05 | BI_ITS ---
MAMMOGRAPHY - BILATERAL SCREENING REASON FOR EXAM: Female, 60 years old. Routine annual screening examination. PERTINENT HISTORY: Non-contributory. TECHNIQUE: Digital bilateral breast wenceslao (3D mammographic acquisition) in the CC and MLO projections. 2-D mediolateral oblique (MLO) and craniocaudad (CC) views of both breasts were obtained. CAD: Full Field Digital Mammography with Computer Added Detection was performed. COMPARISON: Comparison is made with prior study dated 03/04/2019 and 09/20/2016. FINDINGS: Breast Composition: The breasts are heterogeneously dense, which may obscure small masses. There are no dominant masses or suspicious calcifications. Stable small benign appearing bilateral axillary lymph nodes. No other significant abnormalities are identified. There has been no significant change since the prior study. BI/SCRN MAMM (CAD)W/WENCESLAO BILAT IMPRESSION: Stable bilateral screening mammogram. Yearly follow-up mammogram recommended. (A) ASSESSMENT CATEGORY: BIRADS Category 2: Benign. A letter regarding these results will be sent to the patient by the facility within 30 days. Approximately 10% of breast cancers are not detected by mammography. A normal mammogram should not delay biopsy of a clinically suspicious abnormality. [id number] Electronically Signed: Vadim Wei MD at 13:05 EST , Service support ,
== END ==
PROVIDERS: PCP Internal Medicine; Referring Provider Internal Medicine; Visit Provider Internal Medicine
DX: Z12.31 Encounter for screening mammogram for malignant neoplasm of breast (principal); Z78.0 Asymptomatic menopausal state
CPT/HCPCS: 77063; 77067

== ENCOUNTER → 2020-07-24 17:20 | Outpatient (CLI) | payer OTHER, SELFPAY ==
[2020-07-27 20:24] LABS: HPV APTIMA, High Risk Negative (Negative)
== END ==
PROVIDERS: PCP Internal Medicine; Visit Provider Student in an Organized Health Care Education/Training Program
DX: Z12.4 Encounter for screening for malignant neoplasm of cervix (principal)
CPT/HCPCS: 87624; 88175; G0145

== ENCOUNTER → 2020-07-26 09:05 | Outpatient (CLI) | payer OTHER, SELFPAY ==
[2019-09-17 08:37] VITALS: BMI 36.6
--- NOTE | 2020-07-26 14:49 | US_ITS ---
STUDY: ULTRASOUND TRANSVAGINAL CLINICAL: Female, 60 years old. POST MENOPAUSAL BLEEDING TECHNIQUE: Transvaginal COMPARISON: None. FINDINGS: Normal uterine size measuring 6.9 x 5.3 x 4.4 cm in maximal craniocaudal dimension. There are no myometrial masses. Thickened endometrial thickness measuring 1.6 cm and is heterogeneous... There are no endometrial masses, and there is no fluid in the endometrial cavity. Normal uterine cervix. Normal right ovary, measuring 3 x 1.7 x 1.4 cm. There are multiple follicles without a dominant cyst. Normal left ovary, measuring 0.5 x 1.3 x 1.2 cm. There are multiple follicles without a dominant cyst. There is no free fluid in the pelvis. No significant change since prior exam US/Transvaginal Non- IMPRESSION: Heterogeneous appearing thickened endometrial lining of uncertain clinical significance. Clinical correlation recommended Electronically Signed: Jerry Willis MD at 19:01 EST , Service support ,
--- NOTE | 2020-07-26 14:49 | US_ITS ---
STUDY: ULTRASOUND TRANSVAGINAL CLINICAL: Female, 60 years old. POST MENOPAUSAL BLEEDING TECHNIQUE: Transvaginal COMPARISON: None. FINDINGS: Normal uterine size measuring 6.9 x 5.3 x 4.4 cm in maximal craniocaudal dimension. There are no myometrial masses. Thickened endometrial thickness measuring 1.6 cm and is heterogeneous... There are no endometrial masses, and there is no fluid in the endometrial cavity. Normal uterine cervix. Normal right ovary, measuring 3 x 1.7 x 1.4 cm. There are multiple follicles without a dominant cyst. Normal left ovary, measuring 0.5 x 1.3 x 1.2 cm. There are multiple follicles without a dominant cyst. There is no free fluid in the pelvis. No significant change since prior exam US/Pelvic (Non ) IMPRESSION: Heterogeneous appearing thickened endometrial lining of uncertain clinical significance. Clinical correlation recommended Electronically Signed: Jerry Willis MD at 19:01 EST , Service support ,
== END ==
PROVIDERS: PCP Internal Medicine; Referring Provider Student in an Organized Health Care Education/Training Program; Visit Provider Student in an Organized Health Care Education/Training Program
DX: N95.0 Postmenopausal bleeding (principal)
CPT/HCPCS: 76830; 76856

== ENCOUNTER → 2020-08-10 15:32 | Outpatient (CLI) | payer OTHER, SELFPAY ==
--- NOTE | 2020-08-10 | IMM_PTH ---
PATIENT: WEST POSADAS LOC: [facility] U#:[id number] AGE/SX: 65/F ROOM: RE08/10/[address]: Dr. Michelle Oconnell DO : 1960 BED: DIS: SPEC #: [id number] RECD: 08/14/20 12:36 STATUS: SHAKILA REQ #: [id number] SAM: 08/10/20 00:[address]: Michelle Oconnell DEPT: IMMUNOHISTOCHEMISTRY RECD BY: Pema Wayne ENTERED: 08/14/20 12:38 SP TYPE: IMMUNO OTHR DR: Dr. Charo Grier DO Tissues: Endometrium, NOS Procedures: MSH2 (add) MLH-1 (add) MSH6 (add) Anti-PMS2 (add) CEA (add) CK20 (add) CK7 (add) HINOJOSA-2 (add) MARCIN (add) KI-67 (add) P53 (add) Vimentin (add) 34BE12 (add) Pankeratin (initial) [facility]YSIC[facility] [address] [address] SPECIMEN INFORMATION: Tissue Source: Endometrial biopsy Clinical Info: Postmenopausal bleeding Specimen Number: [id number] CPT code: 16904, 60128 x13 METHODOLOGY: Deparaffinized sections of prefer/formalin-fixed tissue or PAP/DQ stained slides are incubated with monoclonal/polyclonal antibodies/oligonucleotide probes. Localization is made via biotin free immunoperoxidase method. Appropriate controls are performed and reacted as expected. Results on target cell population are indicated in the following table: RESULTS: ANTIBODY / CLONE RESULT AE1-3 (AE1/AE3/PCK26) positive CK7 (OV-TL12/30) positive CK20 (KS20.8) negative Vimentin (V9) positive 34BE12 (34BE12) positive MARCIN (E29) positive CEA (11-7/TF-3HB-1) negative Ki-67 (30-9) positive, >90% P53 (DO-7) positive, 40%, dim HINOJOSA-2 (SP21) positive MLH-1 (M1) positive MSH2 (25D12) positive MSH6 (44) positive PMS2 (NYR0114) positive These tests were developed and their performance characteristics determined by [facility]. They may not have been cleared or approved by the U.S. Food and Drug Administration. The FDA has determined that such clearance or approval is not necessary. The above immunohistochemical/dualISH markers are ordered and reviewed by the Pathologist. INTERPRETATION: Endometrium, biopsy: Endometrial adenocarcinoma. Result of Microsatellite Instability Study: Negative (no loss of mismatch protein; no microsatellite instability detected). AM:brit 08/15/20
--- NOTE | 2020-08-10 15:20 | EMB_PTH ---
PATIENT: WEST POSADAS LOC: [facility] U#:[id number] AGE/SX: 65/F ROOM: RE08/10/[address]: Dr. Michelle Oconnell DO : 1960 BED: DIS: SPEC #: [id number] RECD: 08/11/20 08:19 STATUS: SHAKILA REQ #: [id number] SAM: 08/10/20 15:[address]: Michelle Oconnell DEPT: SURGICAL PATHOLOGY RECD BY: Grace Grimaldo ENTERED: 08/11/20 08:19 SP TYPE: ENDOM BX/C TUSHAR DR: Dr. Charo Grier DO Tissues: Endometrium, NOS Procedures: Surgery Specimen Level IV HEADER OPERATION: Endometrial biopsy PRE-OP DIAGNOSIS: Postmenopausal bleeding TISSUE SUBMITTED: Endometrial biopsy MICROSCOPIC DIAGNOSIS Endometrium, biopsy: Endometrial adenocarcinoma, FIGO grade 2. See comment. AM:brit 08/14/2020 COMMENT Immunohistochemistry ([id number]) supports the above diagnosis. MICROSCOPIC DESCRIPTION Slides are reviewed. GROSS DESCRIPTION Received in fixative is one container labeled with the patient's name and designated EMB. The specimen consists of multiple fragments of hemorrhagic soft tissue that in aggregate measure 3 x 2.5 x 0.2 cm. The specimen is totally submitted in one cassette. / SJ:rg 08/11/20 TC:0 [facility]: [id number]
== END ==
PROVIDERS: PCP Internal Medicine; Visit Provider Student in an Organized Health Care Education/Training Program
DX: N95.0 Postmenopausal bleeding (principal)
CPT/HCPCS: 88305; 88341; 88342

== ENCOUNTER → 2020-09-11 13:50 | Outpatient (CLI) | payer OTHER, SELFPAY ==
[2019-09-17 08:37] VITALS: BMI 36.6
--- NOTE | 2020-09-11 13:53 | CT_ITS ---
STUDY: CT CHEST, ABDOMEN T PELVIS WITH CONTRAST REASON FOR EXAM: Female, 60 years old. ENDOMETRIAL CA -- STAGING HIGH GRADE ENDOMETRIAL CA RADIATION DOSAGE (If Supplied By Facility): CTDIvol = ( 23.01 ) mGy, DLP = ( 3406.84 ) mGycm TECHNIQUE: Transaxial imaging was performed following intravenous administration of Oral and amp; IV Readi-CAT and amp; 100mL Isovue-300. Individualized dose optimization techniques were used for this CT. COMPARISON: Recent chest x-rays, CT scan from 2014 FINDINGS: CHEST Lung windows show normally expanded lungs. New since previous study has been development of multiple, too numerous to count, noncalcified nodules scattered throughout both lung ríos suspicious for diffuse pulmonary metastasis. These nodules measure between 0.3 and 1.1 cm. There is no organized infiltrate or pleural effusion. Soft tissue windows show a normal-appearing thyroid gland. There are scattered subcentimeter axillary and mediastinal lymph nodes. Normal heart and pericardium. Normal mediastinum. Normal hilar regions. Normal unenhanced pulmonary arteries. Normal aorta arch and descending thoracic aorta. There are multi-level degenerative changes of the thoracic spine. ABDOMEN Normal liver. There are surgical clips in the gallbladder fossa consistent with a prior cholecystectomy. Normal spleen. Normal pancreas. Stable 2.0 x 1.6 cm left adrenal adenoma, right adrenal is unremarkable. Normal right kidney. Normal left kidney. Normal visualized stomach. Normal small intestine. Normal colon. There is non-visualization of the appendix. Normal abdominal aorta. Normal inferior vena cava. Normal retroperitoneum. Normal abdominal wall. There are diffuse degenerative changes of the visualized lumbar spine. Bladder is unremarkable. Uterus is still present, it is heterogeneous and enlarged, the endometrium cannot be accurately evaluated with CT. There is no pelvic fluid. There is no pelvic lymphadenopathy or mass lesion. Normal visualized pelvic arteries. CT/CT Chest, Abd, Pel w/Contrast IMPRESSION: Multiple new suspicious, too numerous to count, noncalcified nodules in both lung ríos consistent with diffuse pulmonary metastasis No suspicious axillary, mediastinal, or perihilar adenopathy No pleural or pericardial effusions No suspicious solid organ abnormality, stable left adrenal adenoma. No change since 2016 No free intraperitoneal fluid, air, or suspicious adenopathy Uterus is again identified it is heterogeneous and the endometrium cannot be accurately evaluated with CT. Patient has known endometrial carcinoma Degenerative bony changes Electronically Signed: Delfino De La Cruz MD at 16:42 EDT , Service support ,
[2020-09-12 07:48] LABS: EGFR FINGERSTICK 41 mL/min (>60)
== END ==
PROVIDERS: PCP Internal Medicine
DX: C54.1 Malignant neoplasm of endometrium (principal)
CPT/HCPCS: 71260; 74177; Q9967

== ENCOUNTER → 2020-10-23 11:35 | Outpatient (CLI) | payer OTHER, SELFPAY ==
[2020-10-10 09:31] VITALS: BMI 36.6
[2020-10-23 12:44] LABS: Absolute Lymphocyte Count 1.45 X10^3/uL (0.83-4.51); Absolute Neutrophil Count 4.8 X10^3/uL (2.0-7.7); Basophil# 0.06 X10^3/uL; Basophil% 0.9 % (0-1); Eosinophil# 0.05 X10^3/uL; Eosinophils% 0.7 % (0-5); Hematocrit 38.4 % (37-47); Hemoglobin 13.4 g/dL (12.0-15.0); Lymphocyte # 1.45 X10^3/ul (0.83-4.51); Lymphocyte % 21.1 % (19-41); Mean Corp Hgb Conc 34.9 g/dL (32-36); Mean Corpuscular Volume 86.1 fL (81-99); Mean Platelet Vol. 8.9 fl (6.2-12.0); Monocyte# 0.51 X10^3/uL; Monocyte% 7.4 % (0-10); NRBC Flagged by Analyzer 0 % (0-5); Neutrophil # 4.77 X10^3/uL (2.7-7.7); Neutrophil % 69.5 % (47-70); Platelet Count 303 K/mm3 (150-450); RBC Distribution Width SD 40.2 fl (35.1-43.9); Red Blood Count 4.46 M/mm3 (4.2-5.4); White Blood Count 6.9 K/mm3 (4.4-11.0)
[2020-10-23 14:20] LABS: AST(SGOT) 44 U/L (15-37); Alanine Aminotransfer ALT/SGPT 72 U/L (13-56); Albumin, Serum 3.9 g/dL (3.2-5.0); Alkaline Phosphatase 82 U/L (45-117); Anion Gap 7 (5-15); BUN 17 mg/dL (7-18); BUN/Creat Ratio 13.7 RATIO (10-20); Calcium,Total 9.3 mg/dL (8.5-10.1); Chloride 106 mmol/L (98-107); Creatinine, Serum 1.24 mg/dL (0.55-1.02); EST Glomerular Filtration Rate 47 mL/min (>60); Est Glom Filt Rate - Afr Amer 57 mL/min (>60); GGTP 92 U/L (5-55); Globulin 4.1 g/dL (2.2-4.2); Glucose 122 mg/dL (74-106); Magnesium 2.1 mg/dL (1.6-2.6); Phosphorus 4.3 mg/dL (2.5-4.9); Potassium 3.7 mmol/L (3.5-5.1); Sodium Level 137 mmol/L (136-145)
[2020-10-24 09:33] LABS: Cancer Antigen 125 11.8 U/mL (0.0-38.1)
== END ==
PROVIDERS: PCP Internal Medicine
DX: C54.1 Malignant neoplasm of endometrium (principal)
CPT/HCPCS: 36415; 80053; 82977; 83735; 84100; 85025; 86304

== ENCOUNTER → 2020-11-13 07:48 | Outpatient (CLI) | payer OTHER, SELFPAY ==
[2020-11-06 16:05] VITALS: BMI 36.6
[2020-11-13 08:15] LABS: Absolute Lymphocyte Count 1.33 X10^3/uL (0.83-4.51); Absolute Neutrophil Count 3.3 X10^3/uL (2.0-7.7); Basophil# 0.07 X10^3/uL; Basophil% 1.3 % (0-1); Eosinophil# 0.12 X10^3/uL; Eosinophils% 2.2 % (0-5); Hematocrit 36.7 % (37-47); Hemoglobin 12.3 g/dL (12.0-15.0); Lymphocyte # 1.33 X10^3/ul (0.83-4.51); Lymphocyte % 24.1 % (19-41); Mean Corp Hgb Conc 33.5 g/dL (32-36); Mean Corpuscular Volume 89.5 fL (81-99); Mean Platelet Vol. 8.8 fl (6.2-12.0); Monocyte# 0.63 X10^3/uL; Monocyte% 11.4 % (0-10); NRBC Flagged by Analyzer 0 % (0-5); Neutrophil # 3.32 X10^3/uL (2.7-7.7); Neutrophil % 59.9 % (47-70); Platelet Count 239 K/mm3 (150-450); RBC Distribution Width CV 14.2 % (11.6-14.6); RBC Distribution Width SD 45.4 fl (35.1-43.9); White Blood Count 5.5 K/mm3 (4.4-11.0)
[2020-11-13 08:32] LABS: AST(SGOT) 35 U/L (15-37); Alanine Aminotransfer ALT/SGPT 74 U/L (13-56); Albumin, Serum 3.5 g/dL (3.2-5.0); Alkaline Phosphatase 66 U/L (45-117); Anion Gap 9 (5-15); BUN 21 mg/dL (7-18); BUN/Creat Ratio 31.2 RATIO (10-20); Chloride 107 mmol/L (98-107); Creatinine, Serum 0.67 mg/dL (0.55-1.02); EST Glomerular Filtration Rate 95 mL/min (>60); Est Glom Filt Rate - Afr Amer 115 mL/min (>60); GGTP 76 U/L (5-55); Globulin 3.6 g/dL (2.2-4.2); Glucose 118 mg/dL (74-106); Magnesium 1.9 mg/dL (1.6-2.6); Phosphorus 3.9 mg/dL (2.5-4.9); Potassium 3.8 mmol/L (3.5-5.1); Protein, Total 7.1 g/dL (6.4-8.2); Sodium Level 143 mmol/L (136-145)
[2020-11-13 16:12] LABS: Xtra Tube EP Lab EXTRA TUBE
[2020-11-14 11:09] LABS: Cancer Antigen 125 8.1 U/mL (0.0-38.1)
== END ==
PROVIDERS: PCP Internal Medicine
DX: C54.1 Malignant neoplasm of endometrium (principal)
CPT/HCPCS: 36591; 80053; 82977; 83735; 84100; 85025; 86304; A4216

== ENCOUNTER → 2020-11-30 08:09 | Outpatient (CLI) | payer OTHER, SELFPAY ==
[2020-11-06 16:05] VITALS: BMI 36.6
--- NOTE | 2020-11-30 08:11 | CT_ITS ---
STUDY: CT CHEST, ABDOMEN T PELVIS WITH CONTRAST REASON FOR EXAM: Female, 60 years old. Malignant neoplasm of endometrium RADIATION DOSAGE (If Supplied By Facility): CTDIvol = ( 17.57 ) mGy, DLP = ( 1767.06 ) mGycm TECHNIQUE: Transaxial imaging was performed following intravenous administration of Oral and amp; IV Readi-CAT and amp; 100mL Isovue-300. Individualized dose optimization techniques were used for this CT. COMPARISON: Comparison is made with prior examination dated 09/11/2020. FINDINGS: CHEST Stable small benign appearing bilateral axillary lymph nodes. The previously seen multiple nodules scattered throughout both lungs have almost completely resolved. There is a residual 1 cm nodule in the anterior aspect of the right lower lobe within the mediastinal fat. There is no demonstrated pleural abnormality. Normal heart and pericardium. Normal mediastinum. Normal hilar regions. Normal unenhanced pulmonary arteries. Normal aorta arch and descending thoracic aorta. There are multi-level degenerative changes of the thoracic spine. Stable 2.5 cm fatty nodule in the left adrenal gland. ABDOMEN There is decreased attenuation of the liver consistent with steatosis. The patient is status post cholecystectomy. Normal spleen. Normal pancreas. There is a small, circumscribed, smooth, low attenuation left adrenal mass, consistent with an adrenal adenoma. This measures 2.5 cm. Normal right adrenal gland. Normal right kidney. Normal left kidney. Normal visualized stomach. Normal small intestine. Normal colon. The appendix is visualized and appears normal. Normal abdominal aorta. Normal inferior vena cava. Normal retroperitoneum. Normal abdominal wall. Normal osseous structures. PELVIS Normal urinary bladder. Heterogeneous appearance of the endometrium. Normal visualized small intestine. Normal visualized colon. There is no pelvic fluid. There is no pelvic lymphadenopathy or mass lesion. Normal visualized pelvic arteries. Normal abdominal wall. There are degenerative changes of the visualized lumbar spine. CT/CT Chest, Abd, Pel w/Contrast IMPRESSION: Almost complete resolution of the previously noted nodules in both lungs. Fatty infiltration of the liver. Stable left adrenal adenoma. Heterogeneous appearance of the uterine endometrium. Electronically Signed: Vadim Wei MD at 13:02 EDT , Service support ,
[2020-11-30] MEDS: 0.9% Saline Lock 10 ML Syringe IV (08:40)
== END ==
PROVIDERS: PCP Internal Medicine
DX: C54.1 Malignant neoplasm of endometrium (principal)
CPT/HCPCS: 71260; 74177; Q9967; A4216

== ENCOUNTER → 2020-12-01 08:57 | Outpatient (CLI) | payer OTHER, SELFPAY ==
[2020-11-06 16:05] VITALS: BMI 36.6
[2020-12-01] MEDS: Alteplase 2 MG/2 ML Vial IV (09:15)
== END ==
PROVIDERS: PCP Internal Medicine
DX: C54.1 Malignant neoplasm of endometrium (principal)
CPT/HCPCS: 36593; J2997; A4216

== ENCOUNTER 2021-01-17 13:08 | Emergency (ER) | payer OTHER, SELFPAY ==
[2021-01-17 13:09] VITALS: BP 161/91; PULSE 103; RESP 20; TEMP 36.6; O2SAT 98; BMI 34.4
[2021-01-17 13:17] VITALS: PULSE 101; RESP 21; TEMP 36.7; O2SAT 98
--- NOTE | 2021-01-17 13:37 | CT_ITS ---
STUDY: CT BRAIN WITHOUT CONTRAST REASON FOR EXAM: Female, 60 years old. Headache RADIATION DOSAGE (If Supplied By Facility): CTDIvol = ( 44.99 ) mGy, DLP = ( 782.05 ) mGycm TECHNIQUE: Transaxial CT imaging of the brain was performed without administration of intravenous contrast material. Individualized dose optimization techniques were used for this CT. COMPARISON: MRI dated 01/03/2012 FINDINGS: Normal soft tissue structures. Normal calvarium. There is mild cerebral atrophy with widening of the extra-axial spaces and ventricular dilatation. There are areas of decreased attenuation within the white matter tracts of the supratentorial brain, consistent with microvascular disease changes. Normal basal ganglia and thalami. Normal brainstem. There is mild cerebellar atrophy. There is no intracranial hemorrhage. There are no findings of an acute ischemic infarction. Normal visualized paranasal sinuses. CT/Brain/Head without Contrast IMPRESSION: Chronic involutional changes of the brain. Small vessel ischemia. Electronically Signed: Marcela Crews MD at 14:48 EDT Tel , Service support ,
--- NOTE | 2021-01-17 13:37 | CT_ITS ---
STUDY: CTA CHEST REASON FOR EXAM: Female, 60 years old. Pulmonary embolism RADIATION DOSAGE (If Supplied By Facility): CTDIvol = ( 15.01 ) mGy, DLP = ( 592.88 ) mGycm TECHNIQUE: The examination was performed with the intravenous administration of IV 100mL Isovue-370. Post-processing of the angiographic images was performed, with multiplanar reformation and 3D reconstruction. Individualized dose optimization techniques were used for this CT. COMPARISON: 09/12/2011 and 11/30/2020 FINDINGS: There is a stable 1.3 cm low-attenuation focus within the left lobe of the thyroid gland Normal enhancement of the main pulmonary artery and right and left pulmonary arteries. Normal enhancement of the bilateral peripheral pulmonary arteries. There is no demonstrated pulmonary embolism. Normal thoracic aorta and visualized great vessels. There is no demonstrated aortic dissection. Normal heart and pericardium. Normal mediastinum. Normal hilar regions. Normal visualized trachea and bronchi. There is no new focal consolidation. There are scattered stable less then 4 mm pulmonary nodules. There are degenerative changes of thoracic spine. The limited images of the upper abdomen demonstrate a stable left adrenal low-attenuation nodule suggestive of an underlying adenoma. CT/CTA Chest W/WO Contrast IMPRESSION: No demonstrated pulmonary embolism or arterial dissection. No acute cardiopulmonary process. Stable less than 4 mm scattered pulmonary nodules. Stable left adrenal adenoma. Stable 1.3 cm low-attenuation focus within the left adrenal gland, may reflect a colloid cyst. Electronically Signed: Marcela Crews MD at 14:57 EDT Tel , Service support ,
--- NOTE | 2021-01-17 13:37 | EKG12_ITS ---
Test Reason : SYNCOPE Blood Pressure : / mmHG Vent. Rate : 091 BPM Atrial Rate : 091 BPM P-R Int : 174 ms QRS Dur : 088 ms QT Int : 384 ms P-R-T Axes : 028 -16 033 degrees QTc Int : 472 ms Normal sinus rhythm Inferior infarct , age undetermined Abnormal ECG Confirmed by SALVATORE WALTERS, GAVIN ([id number]), make up editor FELICIANO CLARK ([id number]) on 01/22/2021 8:34:31 AM Referred By: NISREEN/EMILY Confirmed By:GAVIN CHASE MD
--- NOTE | 2021-01-17 13:38 | EDS_ITS ---
HPI History of Present Illness Chief Complaint: Syncope Informant: patient and spouse/S.O. Narrative Narrative: 60-year-old female presents following a syncopal episode. Patient reports that she was down in the retail pharmacy picking up a prescription when she began to feel the room going dark. She made mention that she needed to sit down but ended up having a syncopal episode there is no report of any seizure activity. She denies any prior chest pain palpitations or shortness of breath prior to the event. She is 3 weeks out from a total abdominal hysterectomy due to endometrial cancer. She has had 3 prior chemo treatments. She is getting her care in [place]. No prior history of DVT or PE. She notes that this morning she had a left-sided headache and blurred vision. She notes her endometrial cancer had metastasized to her lung. PFSH PFS Medical History Diarrhea Endometrial cancer HTN (hypertension) Migraines Non-smoker Home Medications diltiazem HCl 120 mg PO DAILY 02/25/19 [History Last Taken 02/25/19] hydrochlorothiazide 25 mg PO DAILY 02/25/19 [History Last Taken 02/25/19] meloxicam 7.5 mg PO DAILY 02/25/19 [History Last Taken 02/25/19] multivitamin 1 ea PO DAILY 02/25/19 [History Last Taken 02/25/19] prednisone See Taper PO UD 02/25/19 [History Last Taken Unknown] rosuvastatin 10 mg PO QHS #30 tab 02/26/19 [Rx Last Taken Unknown] prednisone 20 mg tablet 20 mg PO DAILY #18 tab 03/18/19 [Rx Last Taken Unknown] Allergy/AdvReac Type Severity Reaction Status Date / Time midazolam [From Versed] Allergy hypotensive Verified 01/17/21 13:12 codeine AdvReac Vomiting Verified 01/17/21 13:12 erythromycin base AdvReac Vomiting Verified 01/17/21 13:12 Family History Mother Arthritis Migraine Father CAD (coronary artery disease) Hx of CABG Arthritis Surgical History (Updated 01/17/21 @ 13:19 by Keith Dubon) History of appendectomy History of cholecystectomy History of total abdominal hysterectomy Social History Smoking Status: Never smoker alcohol intake: never EXAM Physical Exam Const Vital Signs: 01/17/21 13:09 01/17/21 13:17 01/17/21 14:23 Temperature 97.9 F 98.0 F Temperature Source Temporal Oral Pulse Rate 103 H 101 H 84 Respiratory Rate 20 H 21 H 19 H Respiratory Effort Normal Respiratory Pattern Normal Blood Pressure 161/91 H 142/78 H Blood Pressure Mean 114 99 Pulse Ox 98 98 97 Oxygen Delivery Method Room Air Room Air Room Air 01/17/21 15:39 Temperature Temperature Source Pulse Rate 74 Respiratory Rate 16 Respiratory Effort Respiratory Pattern Blood Pressure 153/81 H Blood Pressure Mean 105 Pulse Ox 97 Oxygen Delivery Method Room Air MDM MDM MDM Narrative Medical decision making narrative: EKG shows a normal sinus rhythm. She was observed on the monitor has had no events. Initial blood work is negative. Troponin is 4. CTA of the chest shows no pulmonary embolism. CT the brain is also negative. Patient received a dose of Toradol and IV fluids. She is feeling better. She does not wish to stay for a second troponin. I have comfortable with the patient going home at this point she will return if worsening or concerns. Lab Data Attestation: I reviewed the patient's lab results. Labs: Laboratory Results - last 24 hr 01/17/21 01/17/21 13:20 13:20 WBC 8.5 RBC 4.25 Hgb 13.0 Hct 38.2 MCV 89.9 MCH 30.6 MCHC 34.0 RDW Std Deviation 41.1 RDW Coeff of Papo 12.5 Plt Count 332 MPV 9.2 Immature Gran % (Auto) 0.400 Neut % (Auto) 76.4 H Lymph % (Auto) 15.3 L [place] % (Auto) 5.4 Eos % (Auto) 2.1 Baso % (Auto) 0.4 Absolute Neuts (auto) 6.5 Absolute Lymphs (auto) 1.30 Nucleated RBC % 0 Sodium 140 Potassium 3.6 Chloride 108 H Carbon Dioxide 21.0 Anion Gap 11 BUN 19 H Creatinine 0.75 Estim Creat Clear Calc 78.54 Est GFR (MDRD) Af Amer 102 Est GFR (MDRD) Non-Af 84 BUN/Creatinine Ratio 25.5 H Glucose 148 H Calcium 9.3 Total Bilirubin 0.30 AST 27 ALT 49 Alkaline Phosphatase 71 Troponin I High Sens 4 Total Protein 8.2 Albumin 4.2 Globulin 4.0 Albumin/Globulin Ratio 1.0 Radiography Diagnostic Testing: Radiology Impression Brain CT 01/17/21 13:37 IMPRESSION: Chronic involutional changes of the brain. Small vessel ischemia. Electronically Signed: Marcela Crews MD at 14:48 EDT Tel , Service support , Chest CTA 01/17/21 13:37 IMPRESSION: No demonstrated pulmonary embolism or arterial dissection. No acute cardiopulmonary process. Stable less than 4 mm scattered pulmonary nodules. Stable left adrenal adenoma. Stable 1.3 cm low-attenuation focus within the left adrenal gland, may reflect a colloid cyst. Electronically Signed: Marcela Crews MD at 14:57 EDT Tel , Service support , Discharge Plan Triage Chief Complaint: Syncope ED Provider: Italo Peng Dx/Rx/DC Orders Clinical Impression: Syncope, Headache Instructions: ED Fainting, Uncertain Cause Prescriptions: No Action prednisone 20 mg tablet 20 mg PO DAILY Qty: 18 RF: 0 diltiazem HCl 120 MG capsule 120 mg PO DAILY RF: 0 hydrochlorothiazide 25 MG tablet 25 mg PO DAILY RF: 0 multivitamin 1 EACH tablet 1 ea PO DAILY RF: 0 prednisone 10 MG tablet See Taper mg PO UD RF: 0 meloxicam 7.5 MG tablet 7.5 mg PO DAILY RF: 0 rosuvastatin 10 MG tablet 10 mg PO QHS Qty: 30 RF: 0 Primary Care Provider: Charo Grier Referrals: Charo Grier DO [Primary Care Provider] - 1 Week Disposition Disposition: Home, Self Care
[2021-01-17 13:51] LABS: Absolute Neutrophil Count 6.5 X10^3/uL (2.0-7.7); Basophil# 0.03 X10^3/uL; Basophil% 0.4 % (0-1); Eosinophil# 0.18 X10^3/uL; Eosinophils% 2.1 % (0-5); Hematocrit 38.2 % (37-47); Lymphocyte % 15.3 % (19-41); Mean Corpuscular Hgb 30.6 pg (27.0-32.0); Mean Corpuscular Volume 89.9 fL (81-99); Mean Platelet Vol. 9.2 fl (6.2-12.0); Monocyte# 0.46 X10^3/uL; Monocyte% 5.4 % (0-10); NRBC Flagged by Analyzer 0 % (0-5); Neutrophil # 6.51 X10^3/uL (2.7-7.7); Neutrophil % 76.4 % (47-70); Platelet Count 332 K/mm3 (150-450); RBC Distribution Width CV 12.5 % (11.6-14.6); RBC Distribution Width SD 41.1 fl (35.1-43.9); Red Blood Count 4.25 M/mm3 (4.2-5.4); White Blood Count 8.5 K/mm3 (4.4-11.0)
[2021-01-17 14:08] LABS: AST(SGOT) 27 U/L (15-37); Alanine Aminotransfer ALT/SGPT 49 U/L (13-56); Albumin, Serum 4.2 g/dL (3.2-5.0); Alkaline Phosphatase 71 U/L (45-117); Anion Gap 11 (5-15); BUN 19 mg/dL (7-18); BUN/Creat Ratio 25.5 RATIO (10-20); Calcium,Total 9.3 mg/dL (8.5-10.1); Chloride 108 mmol/L (98-107); Creatinine, Serum 0.75 mg/dL (0.55-1.02); EST Glomerular Filtration Rate 84 mL/min (>60); Est Glom Filt Rate - Afr Amer 102 mL/min (>60); Estimated Creatinine Clearance 78.54 ml/min; Glucose 148 mg/dL (74-106); Potassium 3.6 mmol/L (3.5-5.1); Protein, Total 8.2 g/dL (6.4-8.2); Sodium Level 140 mmol/L (136-145); Troponin-I HS 4 pg/mL (3.0-54.0)
[2021-01-17] MEDS: 0.9% Normal Saline 1,000 ML 1000 ML IV (14:18)
[2021-01-17] MEDS: Ketorolac 30 MG/ML Syringe IV (14:21)
[2021-01-17 14:23] VITALS: BP 142/78; PULSE 84; RESP 19; O2SAT 97
[2021-01-17 15:39] VITALS: BP 153/81; PULSE 74; RESP 16; O2SAT 97
[2021-01-17 16:04] VITALS: BP 142/81; PULSE 71; RESP 13; RESP 16
[2021-01-18 15:56] LABS: Bedside Glucose 145 mg/dL (70-110)
== END 2021-01-17 16:05 | disposition home or self-care (01) ==
PROVIDERS: Emergency Provider Emergency Medicine; PCP Internal Medicine
DX: R55 Syncope and collapse (principal); R51.9 Headache, unspecified; D35.02 Benign neoplasm of left adrenal gland; I10 Essential (primary) hypertension; I67.82 Cerebral ischemia; Z79.1 Long term (current) use of non-steroidal anti-inflammatories (NSAID); Z79.52 Long term (current) use of systemic steroids; Z85.42 Personal history of malignant neoplasm of other parts of uterus; Z92.21 Personal history of antineoplastic chemotherapy; C78.00 Secondary malignant neoplasm of unspecified lung
CPT/HCPCS: 70450; 71275; 80053; 82962; 84484; 85025; 93005; 96361; 96374; 99284; J7030; Q9967; A4216

== ENCOUNTER → 2021-01-23 13:02 | Outpatient (CLI) | payer OTHER, SELFPAY ==
--- NOTE | 2021-01-23 14:43 | NURSING ---
LAVERN Petersen attempted to access patient's port. Met with resistance and unable to flush. Deaccessed. This nurse accessed patient, but met with resistance and unable to flush. Suggested to patient that she notify her physician and have her port evaluated. Patient stated that nurse at previous facility had difficulty with port recently.
== END ==
PROVIDERS: PCP Internal Medicine
DX: C54.1 Malignant neoplasm of endometrium (principal)
CPT/HCPCS: J2997

== ENCOUNTER 2021-01-29 08:06 | Outpatient (RCR) | payer OTHER, SELFPAY ==
[2021-01-29 09:19] LABS: Absolute Lymphocyte Count 1.39 X10^3/uL (0.83-4.51); Absolute Neutrophil Count 3.8 X10^3/uL (2.0-7.7); Basophil# 0.04 X10^3/uL; Basophil% 0.6 % (0-1); Eosinophil# 0.42 X10^3/uL; Eosinophils% 6.6 % (0-5); Hematocrit 38.7 % (37-47); Lymphocyte # 1.39 X10^3/ul (0.83-4.51); Mean Corp Hgb Conc 33.6 g/dL (32-36); Mean Corpuscular Hgb 30.5 pg (27.0-32.0); Mean Corpuscular Volume 90.8 fL (81-99); Mean Platelet Vol. 9.3 fl (6.2-12.0); Monocyte# 0.63 X10^3/uL; NRBC Flagged by Analyzer 0 % (0-5); Neutrophil # 3.83 X10^3/uL (2.7-7.7); Neutrophil % 60.6 % (47-70); Platelet Count 299 K/mm3 (150-450); RBC Distribution Width CV 12.7 % (11.6-14.6); RBC Distribution Width SD 41.5 fl (35.1-43.9); Red Blood Count 4.26 M/mm3 (4.2-5.4); White Blood Count 6.3 K/mm3 (4.4-11.0)
[2021-01-29 09:38] LABS: ALB/GLOB Ratio 1.2 RATIO (0.9-2.4); AST(SGOT) 30 U/L (15-37); Alanine Aminotransfer ALT/SGPT 62 U/L (13-56); Albumin, Serum 4.3 g/dL (3.2-5.0); Alkaline Phosphatase 72 U/L (45-117); Anion Gap 5 (5-15); BUN 21 mg/dL (7-18); BUN/Creat Ratio 27.7 RATIO (10-20); Calcium,Total 9.3 mg/dL (8.5-10.1); Chloride 107 mmol/L (98-107); Creatinine, Serum 0.76 mg/dL (0.55-1.02); EST Glomerular Filtration Rate 83 mL/min (>60); Est Glom Filt Rate - Afr Amer 100 mL/min (>60); GGTP 59 U/L (5-55); Globulin 3.7 g/dL (2.2-4.2); Glucose 98 mg/dL (74-106); Phosphorus 4.5 mg/dL (2.5-4.9); Sodium Level 140 mmol/L (136-145)
[2021-01-30 21:58] LABS: Cancer Antigen 125 8.1 U/mL (0.0-38.1)
== END 2021-01-29 16:00 | disposition home or self-care (01) ==
LOC: LAB 08:06
PROVIDERS: PCP Internal Medicine
DX: C54.1 Malignant neoplasm of endometrium (principal)
CPT/HCPCS: 36415; 80053; 82977; 83735; 84100; 85025; 86304

== ENCOUNTER 2021-02-19 14:17 | Outpatient (RCR) | payer OTHER, SELFPAY ==
[2021-02-19 14:56] LABS: Absolute Neutrophil Count 3.4 X10^3/uL (2.0-7.7); Basophil# 0.02 X10^3/uL; Basophil% 0.4 % (0-1); Eosinophil# 0.06 X10^3/uL; Eosinophils% 1.1 % (0-5); Hemoglobin 12.5 g/dL (12.0-15.0); Lymphocyte % 25.8 % (19-41); Mean Corp Hgb Conc 34.7 g/dL (32-36); Mean Corpuscular Hgb 30.7 pg (27.0-32.0); Mean Corpuscular Volume 88.5 fL (81-99); Mean Platelet Vol. 8.8 fl (6.2-12.0); Monocyte# 0.54 X10^3/uL; NRBC Flagged by Analyzer 0 % (0-5); Neutrophil # 3.37 X10^3/uL (2.7-7.7); Neutrophil % 62.1 % (47-70); Platelet Count 298 K/mm3 (150-450); RBC Distribution Width CV 13.2 % (11.6-14.6); RBC Distribution Width SD 42.2 fl (35.1-43.9); Red Blood Count 4.07 M/mm3 (4.2-5.4); White Blood Count 5.4 K/mm3 (4.4-11.0)
[2021-02-19 15:25] LABS: ALB/GLOB Ratio 0.9 RATIO (0.9-2.4); AST(SGOT) 50 U/L (15-37); Alanine Aminotransfer ALT/SGPT 126 U/L (13-56); Albumin, Serum 3.6 g/dL (3.2-5.0); Alkaline Phosphatase 108 U/L (45-117); Anion Gap 9 (5-15); BUN 14 mg/dL (7-18); BUN/Creat Ratio 20.1 RATIO (10-20); Calcium,Total 9.1 mg/dL (8.5-10.1); Chloride 104 mmol/L (98-107); EST Glomerular Filtration Rate 91 mL/min (>60); Est Glom Filt Rate - Afr Amer 111 mL/min (>60); GGTP 140 U/L (5-55); Globulin 4.2 g/dL (2.2-4.2); Glucose 142 mg/dL (74-106); Magnesium 1.6 mg/dL (1.6-2.6); Phosphorus 3.8 mg/dL (2.5-4.9); Potassium 3.1 mmol/L (3.5-5.1); Protein, Total 7.8 g/dL (6.4-8.2); Sodium Level 139 mmol/L (136-145)
[2021-02-21 08:54] LABS: Cancer Antigen 125 7.5 U/mL (0.0-38.1)
== END 2021-02-19 18:00 | disposition home or self-care (01) ==
LOC: LAB 14:17
PROVIDERS: PCP Internal Medicine
DX: C54.1 Malignant neoplasm of endometrium (principal)
CPT/HCPCS: 36415; 80053; 82977; 83735; 84100; 85025; 86304

== ENCOUNTER → 2021-03-12 10:59 | Outpatient (CLI) | payer OTHER, SELFPAY ==
[2021-03-12] MEDS: 0.9 % NaCl (Sterile) Posiflush 10 mL IV (11:04)
[2021-03-12] MEDS: 0.9% NaCl VAD Flush IV (11:04)
[2021-03-12 11:21] LABS: Absolute Lymphocyte Count 1.56 X10^3/uL (0.83-4.51); Absolute Neutrophil Count 4.4 X10^3/uL (2.0-7.7); Basophil# 0.06 X10^3/uL; Basophil% 0.9 % (0-1); Eosinophil# 0.09 X10^3/uL; Eosinophils% 1.3 % (0-5); Hematocrit 34.9 % (37-47); Hemoglobin 11.8 g/dL (12.0-15.0); Lymphocyte # 1.56 X10^3/ul (0.83-4.51); Lymphocyte % 23.1 % (19-41); Mean Corp Hgb Conc 33.8 g/dL (32-36); Mean Corpuscular Hgb 30.5 pg (27.0-32.0); Mean Corpuscular Volume 90.2 fL (81-99); Mean Platelet Vol. 8.8 fl (6.2-12.0); Monocyte# 0.63 X10^3/uL; Monocyte% 9.3 % (0-10); NRBC Flagged by Analyzer 0 % (0-5); Neutrophil # 4.35 X10^3/uL (2.7-7.7); Neutrophil % 64.5 % (47-70); Platelet Count 251 K/mm3 (150-450); RBC Distribution Width CV 14.6 % (11.6-14.6); RBC Distribution Width SD 46.8 fl (35.1-43.9); Red Blood Count 3.87 M/mm3 (4.2-5.4); White Blood Count 6.8 K/mm3 (4.4-11.0)
[2021-03-12 11:38] LABS: ALB/GLOB Ratio 0.9 RATIO (0.9-2.4); AST(SGOT) 45 U/L (15-37); Alanine Aminotransfer ALT/SGPT 79 U/L (13-56); Albumin, Serum 3.4 g/dL (3.2-5.0); Alkaline Phosphatase 80 U/L (45-117); Anion Gap 6 (5-15); BUN 13 mg/dL (7-18); BUN/Creat Ratio 18.7 RATIO (10-20); Chloride 109 mmol/L (98-107); EST Glomerular Filtration Rate 91 mL/min (>60); Est Glom Filt Rate - Afr Amer 111 mL/min (>60); GGTP 80 U/L (5-55); Globulin 3.9 g/dL (2.2-4.2); Glucose 96 mg/dL (74-106); Magnesium 1.7 mg/dL (1.6-2.6); Phosphorus 3.5 mg/dL (2.5-4.9); Potassium 3.7 mmol/L (3.5-5.1); Protein, Total 7.3 g/dL (6.4-8.2); Sodium Level 142 mmol/L (136-145)
[2021-03-12 19:19] LABS: Xtra Tube EP Lab EXTRA TUBE
[2021-03-13 07:58] LABS: Cancer Antigen 125 7.2 U/mL (0.0-38.1)
== END ==
PROVIDERS: PCP Internal Medicine
DX: Z45.2 Encounter for adjustment and management of vascular access device (principal); C54.1 Malignant neoplasm of endometrium
CPT/HCPCS: 36591; 80053; 82977; 83735; 84100; 85025; 86304; A4216

== ENCOUNTER → 2021-04-19 14:26 | Outpatient (CLI) | payer OTHER, SELFPAY ==
--- NOTE | 2021-04-19 14:28 | US_ITS ---
STUDY: THYROID ULTRASOUND REASON FOR EXAM: Female, 61 years old. THYROID NODULE TECHNIQUE: Ultrasound evaluation of the thyroid was performed with real-time and static meyers-scale imaging. COMPARISON: None. FINDINGS: RIGHT LOBE: The right lobe of the thyroid gland measures 5.1 x 1.9 x 1.9 cm. There is a homogeneous echotexture. There are no demonstrated solid, cystic or complex lesions. LEFT LOBE: The left lobe of the thyroid gland measures 5.0 x 1.7 x 1.7 cm. There is a homogeneous echotexture. There is 1.7 x 1.6 cm solid nodule with cystic central region at the lower pole. ISTHMUS: The isthmus measures 0.6 cm. The regional lymph nodes are normal. US/Thyroid IMPRESSION: Left thyroid nodule. Electronically Signed: Matheus Darden MD at 12:22 EST , Service support ,
== END ==
PROVIDERS: PCP Internal Medicine
DX: C54.1 Malignant neoplasm of endometrium (principal); E04.1 Nontoxic single thyroid nodule
CPT/HCPCS: 76536

== ENCOUNTER → 2021-06-08 10:58 | Outpatient (CLI) | payer OTHER, SELFPAY | PROVIDERS: PCP Internal Medicine | DX: Z45.2 Encounter for adjustment and management of vascular access device (principal); C54.1 Malignant neoplasm of endometrium | CPT/HCPCS: 96523; A4216 ==

== ENCOUNTER → 2021-07-04 10:14 | Outpatient (CLI) | payer OTHER, SELFPAY ==
[2021-07-05 12:27] LABS: Cancer Antigen 125 7.7 U/mL (0.0-38.1)
== END ==
PROVIDERS: PCP Internal Medicine
DX: C54.1 Malignant neoplasm of endometrium (principal)
CPT/HCPCS: 36415; 86304

== ENCOUNTER → 2021-09-21 | Outpatient (CLI) | payer OTHER, SELFPAY | END | disposition home or self-care (01) | LOC: MEDOUTP 10:25 | PROVIDERS: PCP Internal Medicine | DX: Z45.2 Encounter for adjustment and management of vascular access device (principal); C54.1 Malignant neoplasm of endometrium | CPT/HCPCS: 96523 ==

== ENCOUNTER → 2021-10-19 | Outpatient (CLI) | payer OTHER, SELFPAY ==
--- NOTE | 2021-10-19 15:10 | RAD_ITS ---
INDICATION: Lung nodule, history of endometrial cancer EXAMINATION/TECHNIQUE: X-RAY - XR Chest 2 Views COMPARISON: 02/25/2019 FINDINGS: LINES/DEVICES: Right-sided port. LUNGS: No consolidation, edema or effusion. No radiodense pulmonary nodules. No pneumothorax. MEDIASTINUM AND CARDIOVASCULAR STRUCTURES: Cardiac silhouette not enlarged. Central airways and mediastinal contour are unremarkable. BONES AND SOFT TISSUES: Unremarkable. RAD/Chest PA and Lateral IMPRESSION: No radiographic evidence of acute cardiopulmonary disease. Electronically Signed: Nam Stephenson MD at 15:50 EDT ,
== END | disposition home or self-care (01) ==
PROVIDERS: PCP Internal Medicine
DX: C54.1 Malignant neoplasm of endometrium (principal); R91.1 Solitary pulmonary nodule
CPT/HCPCS: 71046

== ENCOUNTER → 2021-10-26 | Outpatient (CLI) | payer OTHER, SELFPAY ==
[2021-10-26 16:21] LABS: Absolute Lymphocyte Count 2.22 X10^3/uL (0.83-4.51); Absolute Neutrophil Count 5.8 X10^3/uL (2.0-7.7); Basophil# 0.04 X10^3/uL; Basophil% 0.4 % (0-1); Eosinophil# 0.16 X10^3/uL; Eosinophils% 1.8 % (0-5); Hematocrit 37.9 % (37-47); Hemoglobin 13.2 g/dL (12.0-15.0); Lymphocyte # 2.22 X10^3/ul (0.83-4.51); Lymphocyte % 24.4 % (19-41); Mean Corp Hgb Conc 34.8 g/dL (32-36); Mean Corpuscular Hgb 31.1 pg (27.0-32.0); Mean Corpuscular Volume 89.4 fL (81-99); Mean Platelet Vol. 9.1 fl (6.2-12.0); Monocyte% 8.8 % (0-10); NRBC Flagged by Analyzer 0 % (0-5); Neutrophil # 5.83 X10^3/uL (2.7-7.7); Neutrophil % 64.2 % (47-70); Platelet Count 331 K/mm3 (150-450); RBC Distribution Width CV 12.9 % (11.6-14.6); RBC Distribution Width SD 41.9 fl (35.1-43.9); Red Blood Count 4.24 M/mm3 (4.2-5.4); White Blood Count 9.1 K/mm3 (4.4-11.0)
[2021-10-26 16:23] LABS: Color, Urine Yellow (Yellow); Glucose, Dipstick Normal (Normal); Ketone-Dipstick 5 mg/dl (Negative); Leukocyte Esterase-Dipstick 500 /ul (Negative); Nitrite-Dipstick Negative (Negative); Occult Blood-Urine 10 /ul (Negative); Protein-Dipstick 15 mg/dl (Negative); Specific Gravity, Urine 1.025 (1.002-1.030); Urine Clarity Clear (Clear); Urine Urobilinogen 1 mg/dl (Normal)
[2021-10-26 16:40] LABS: Urine Bilirubin Dipstick 1 mg/dL (Negative)
[2021-10-26 16:57] LABS: Bacteria 1+ /hpf (None Seen); Red Blood Cells-Urine 0-5 SEEN /hpf (0-5); Squamous Epithelial Cells - UA 5-10 SEEN /hpf (5-10); White Blood Cells 10-25 SEEN /hpf (0-5)
[2021-10-26 16:58] LABS: Mucous, Urine 2+ /hpf (<or=2+)
[2021-10-26 17:49] LABS: AST(SGOT) 22 U/L (15-37); Alanine Aminotransfer ALT/SGPT 42 U/L (13-56); Alkaline Phosphatase 78 U/L (45-117); Anion Gap 8 (5-15); BUN 26 mg/dL (7-18); BUN/Creat Ratio 27.2 RATIO (10-20); Calcium,Total 8.8 mg/dL (8.5-10.1); Chloride 104 mmol/L (98-107); Cholesterol 196 mg/dL (200); Creatinine, Serum 0.96 mg/dL (0.55-1.02); EST Glomerular Filtration Rate 63 mL/min (>60); Est Glom Filt Rate - Afr Amer 76 mL/min (>60); Globulin 4.1 g/dL (2.2-4.2); Glucose 114 mg/dL (74-106); High Density Lipoprotein 45 mg/dL; Potassium 3.4 mmol/L (3.5-5.1); Protein, Total 8.1 g/dL (6.4-8.2); Sodium Level 138 mmol/L (136-145); Thyroid Stim Hormone (TSH) 1.79 uIU/mL (0.358-3.74); Triglycerides 241 mg/dL; Very Low Density Lipoprotein 48 mg/dL (5-40)
[2021-10-26 18:25] LABS: Hemoglobin A1c 5.7 % (3.8-5.6)
[2021-10-28 09:16] LABS: Cancer Antigen 125 6.9 U/mL (0.0-38.1)
== END | disposition home or self-care (01) ==
LOC: LAB 15:09
PROVIDERS: PCP Internal Medicine
DX: E78.00 Pure hypercholesterolemia, unspecified (principal); C54.1 Malignant neoplasm of endometrium; I10 Essential (primary) hypertension; R73.9 Hyperglycemia, unspecified
CPT/HCPCS: 36415; 80053; 80061; 81001; 82043; 82570; 83036; 84443; 85025; 86304

== ENCOUNTER → 2021-11-08 | Outpatient (CLI) | payer OTHER, SELFPAY ==
--- NOTE | 2021-11-08 08:00 | RAD_ITS ---
STUDY: X-RAY CHEST REASON FOR EXAM: Female, 61 years old. COVID TECHNIQUE: PA and lateral views of the chest. COMPARISON: Comparison is made with prior study dated 10/19/2021. FINDINGS: A right-sided portacatheter is seen with the tip at the junction of the superior vena cava and right atrium. Hyperinflation. Scattered calcified granulomas. There is no demonstrated pleural abnormality. Normal size heart. Normal mediastinum and nima. Normal visualized pulmonary arteries. Normal visualized aortic arch and descending thoracic aorta. There are diffuse degenerative changes of the visualized thoracic spine. Normal visualized ribs, clavicles, and shoulders. There is no demonstrated abnormality of the visualized soft tissue structures of the upper abdomen. RAD/Chest PA and Lateral IMPRESSION: No acute abnormality is seen. Electronically Signed: Vadim Wei MD at 13:13 EDT ,
== END | disposition home or self-care (01) ==
LOC: RAD.FUTURE 07:57
PROVIDERS: PCP Internal Medicine; Referring Provider Internal Medicine; Visit Provider Internal Medicine
DX: U07.1 COVID-19 (principal)
CPT/HCPCS: 71046

== ENCOUNTER → 2021-12-21 | Outpatient (CLI) | payer OTHER, SELFPAY | END | disposition home or self-care (01) | PROVIDERS: PCP Internal Medicine; Referring Provider Obstetrics & Gynecology; Visit Provider Obstetrics & Gynecology | DX: Z45.2 Encounter for adjustment and management of vascular access device (principal); C54.1 Malignant neoplasm of endometrium | CPT/HCPCS: 96523 ==

== ENCOUNTER → 2022-02-19 | Outpatient (CLI) | payer OTHER, SELFPAY ==
[2022-02-20 08:15] LABS: Cancer Antigen 125 6.9 U/mL (0.0-38.1)
== END | disposition home or self-care (01) ==
LOC: MEDOUTP 10:45
PROVIDERS: Nurse Practitioner Adult Health; PCP Internal Medicine; Referring Provider Obstetrics & Gynecology; Visit Provider Obstetrics & Gynecology
DX: Z45.2 Encounter for adjustment and management of vascular access device (principal); C54.1 Malignant neoplasm of endometrium
CPT/HCPCS: 36591; 86304; A4216

== ENCOUNTER → 2022-03-29 | Outpatient (CLI) | payer OTHER, SELFPAY ==
[2022-03-29 08:24] LABS: Hemoglobin A1c 5.7 % (3.8-5.6)
== END | disposition home or self-care (01) ==
LOC: LAB 07:43
PROVIDERS: PCP Internal Medicine; Referring Provider Internal Medicine; Visit Provider Internal Medicine
DX: R73.09 Other abnormal glucose (principal)
CPT/HCPCS: 36415; 83036

== ENCOUNTER → 2022-05-30 | Outpatient (CLI) | payer OTHER, SELFPAY ==
--- NOTE | 2022-05-30 10:17 | BI_ITS ---
MAMMOGRAPHY - BILATERAL SCREENING REASON FOR EXAM: Female, 62 years old. Routine annual screening examination. PERTINENT HISTORY: Non-contributory. TECHNIQUE: Digital bilateral breast maile (3D mammographic acquisition) in the CC and MLO projections. 2-D mediolateral oblique (MLO) and craniocaudad (CC) views of both breasts were obtained. CAD: Full Field Digital Mammography with Computer Added Detection was performed. COMPARISON: 07/24/2020, 03/04/2019. FINDINGS: Breast Composition: The breasts are heterogeneously dense, which may obscure small masses. There are no dominant masses or suspicious calcifications. Stable small benign-appearing bilateral lymph nodes. No other significant abnormalities are identified. There has been no significant change since the prior study. BI/SCREENING MAMM (CAD), BILAT IMPRESSION: Stable bilateral screening mammogram. Yearly follow-up mammogram recommended. (A) ASSESSMENT CATEGORY: BIRADS Category 2: Benign. A letter regarding these results will be sent to the patient by the facility within 30 days. Approximately 10% of breast cancers are not detected by mammography. A normal mammogram should not delay biopsy of a clinically suspicious abnormality. Electronically Signed: Amado Gonzalez, at 17:19 EST ,
--- NOTE | 2022-05-30 10:24 | BD_ITS ---
STUDY: DUAL ENERGY X-RAY ABSORPTIOMETRY / DXA REASON FOR EXAM: Female, 62 years old. [id number] TECHNIQUE: Bone Mineral Density (BMD) measurements of lumbar spine and bilateral hips were obtained. COMPARISON: None. FINDINGS: Lumbar Spine (L1-L4): g/cm2 (0.886) / T-score (-1.5) / Z-score (0.0) Findings are suggestive of osteopenia with a low fracture risk. Left Femur Total: g/cm2 (0.929) / T-score (-0.1) / Z-score (0.9) Left Femoral Neck: g/cm2 (0.725) / T-score (-1.1) / Z-score (0.2) Right Femur Total: g/cm2 (0.928) / T-score (-0.1) / Z-score (0.9) Right Femoral Neck: g/cm2 (0.691) / T-score (-1.4) / Z-score (-0.1) BD/Dexa Bone Density Study IMPRESSION: The patient is considered osteopenic as outlined below according to World [employer] Organization (WHO) criteria with a low fracture risk. Reference Information: The T-score is the number of standard deviations above or below the standard which is normal for young adults at their peak bone mineral density. The World Health Organization (WHO) interprets the T-scores as follows: Above -1 Normal bone density Between -1 and -2.5 Osteopenia Equal to / or below -2.5 Osteoporosis As a practical clinical guideline, osteopenia may be graded as follows: Mild -1 through -1.5 Moderate -1.6 through -2.0 Severe -2.1 through -2.4 The Z-score is the number of standard deviations above or below age-matched controls. A Z-score of less than -1.5 would be considered abnormal. References: 1. NIH Osteoporosis and Related Bone Diseases www osteo.org 2. International Society for Clinical Densitometry www iscd.org 3. National Osteoporosis Foundation www nof.org Electronically Signed: Vadim Wei MD at 10:30 EST ,
== END | disposition home or self-care (01) ==
PROVIDERS: PCP Internal Medicine; Visit Provider Internal Medicine
DX: Z12.31 Encounter for screening mammogram for malignant neoplasm of breast (principal); C54.1 Malignant neoplasm of endometrium; M85.80 Other specified disorders of bone density and structure, unspecified site; Z78.0 Asymptomatic menopausal state
CPT/HCPCS: 77067; 77080; 96523; A4216

== ENCOUNTER → 2022-07-09 | Outpatient (CLI) | payer OTHER, SELFPAY ==
[2022-07-11 17:50] LABS: Cancer Antigen 125 6.6 U/mL (0.0-38.1)
== END | disposition home or self-care (01) ==
PROVIDERS: PCP Internal Medicine; Referring Provider Obstetrics & Gynecology; Visit Provider Obstetrics & Gynecology
DX: C54.1 Malignant neoplasm of endometrium (principal)
CPT/HCPCS: 96372; 36592; 86304; A4216

== ENCOUNTER 2022-07-18 08:02 | Emergency (ER) | payer OTHER, SELFPAY ==
[2022-07-18 08:02] VITALS: BP 161/87; PULSE 88; RESP 14; TEMP 36.6; O2SAT 99; BMI 36.0
--- NOTE | 2022-07-18 08:14 | EDS_ITS ---
HPI History of Present Illness Chief Complaint: Laceration Informant: patient Narrative Narrative: Patient is a 62-year-old female denies any significant past medical history (chart review shows history of hypertension) presenting with laceration to her left middle finger. Patient was preparing dinner last night when she excellently cut her finger with a paring knife. He continued to bleed throughout the night so she came in today to be evaluated. She has some throbbing pain at the finger. She notes she is right-hand dominant. Denies any associated numbness or tingling. No other complaints at this time. Tetanus Immunization: >10 years PFSH PFSH Medical History Diarrhea Endometrial cancer HTN (hypertension) Migraines Non-smoker Home Medications hydrochlorothiazide 25 mg tablet 25 mg PO DAILY 02/25/19 [History Last Taken 02/25/19] meloxicam 7.5 mg tablet 7.5 mg PO DAILY pain 02/25/19 [History Last Taken 02/25/19] multivitamin 1 ea PO DAILY 02/25/19 [History Last Taken 02/25/19] diltiazem HCl 240 mg capsule,extended release 24 hr 240 mg PO DAILY 12/18/21 [History Last Taken Unknown] gabapentin 300 mg capsule 300 mg PO QHS 12/18/21 [History Last Taken Unknown] loratadine 10 mg tablet (Claritin) 10 mg PO DAILY 12/18/21 [History Last Taken Unknown] melatonin 10 mg capsule 10 mg PO HS PRN 12/18/21 [History Last Taken Unknown] Allergy/AdvReac Type Severity Reaction Status Date / Time midazolam [From Versed] Allergy hypotensive Verified 07/18/22 08:05 codeine AdvReac Vomiting Verified 07/18/22 08:05 erythromycin base AdvReac Vomiting Verified 07/18/22 08:05 Family History Mother Arthritis Migraine Father CAD (coronary artery disease) Hx of CABG Arthritis Surgical History History of appendectomy History of cholecystectomy History of total abdominal hysterectomy Social History Smoking Status: Never smoker alcohol intake: never ROS ROS ED Constitutional Constitutional ED: Denies chills or fever(s) Respiratory/Chest Respiratory/Chest: Denies dyspnea Gastrointestinal Gastrointestinal: Denies nausea Musculoskeletal Musculoskeletal: Reports other Details: Left third finger pain Integumentary Reports other Details: Laceration to the left third finger Neurologic Neurologic: Denies paresthesias or weakness Hematologic/Lymphatic Hematologic/Lymphatic: Denies easy bleeding or easy bruising EXAM Physical Exam Const Vital Signs: 07/18/22 08:02 Temperature 97.9 F Temperature Source Temporal Pulse Rate 88 Respiratory Rate 14 Blood Pressure 161/87 H Blood Pressure Mean 111 Pulse Ox 99 Oxygen Delivery Method Room Air Positive well nourished and well developed General Appearance ED: well developed and NAD HEENT atraumatic Eyes PERRL Neck full ROM Chest Wall inspection of chest normal Resp normal respiratory effort and clear to auscultation bilaterally Cardio regular rhythm and no murmurs Rate: regular rate Extremity normal to inspection and full ROM Extremity Narrative: Normal range of motion with flexion extension of the left third finger. General Extremety ED: Negative for deformity General Extremity: Negative for deformity Neuro oriented x3, moves all extremities, no focal motor deficits and no sensory deficits noted Psych mental status grossly normal Skin Skin Narrative: 0.5 cm L-shaped laceration to the medial aspect of the distal left third finger. No active bleeding at this time. Is full-thickness but more of a skin flap. No other laceration or wound appreciated. MDM MDM MDM Narrative Medical decision making narrative: Patient evaluate for bleeding laceration to her left third finger. Tetanus will be updated. Wound to be cleansed. Is not currently not bleeding. It is a small skin flap and I am concerned that a suture will not hold as the skin flap itself is so thin. Will Dermabond after cleansing it. I do not think she requi res empiric antibiotics at this time. Do not think any imaging is indicated as I do not suspect an underlying fracture. Patient is neurovascularly intact. Patient counseled generalized wound care and return precautions. She verbalizes agreement understand this plan. She is offered ibuprofen or Tylenol in the ER but declined states she can just take some after she leaves. Reports that patient left before receiving her tetanus shot. Discharge Plan Triage Chief Complaint: Laceration ED Provider: Luiza Singh Dx/Rx/DC Orders Clinical Impression: Laceration of finger of left hand without foreign body without damage to nail, Bleeding from wound Instructions: ED Laceration, Hand: All Closures Prescriptions: No Action diltiazem HCl 240 mg capsule,extended release 24hr 240 mg PO DAILY gabapentin 300 mg capsule 300 mg PO QHS loratadine [Claritin] 10 mg tablet 10 mg PO DAILY melatonin 10 mg capsule 10 mg PO HS PRN hydrochlorothiazide 25 MG tablet 25 mg PO DAILY multivitamin 1 EACH tablet 1 ea PO DAILY meloxicam 7.5 MG tablet 7.5 mg PO DAILY Primary Care Provider: Charo Grier Referrals: Charo Grier DO [Primary Care Provider] - Activity Restrictions/Additional Instructions: Return if you develop signs of infection or increased pain or the bleeding starts again and cannot be controlled at home with direct pressure. Do not apply any Vaseline/petroleum jelly or antibiotic ointment to the glue as it will cause the glue to dissolve. Disposition Disposition: Home, Self Care
== END 2022-07-18 09:30 | disposition home or self-care (01) ==
LOC: ED 08:26
PROVIDERS: Emergency Provider Emergency Medicine; PCP Internal Medicine; Visit Provider Emergency Medicine
DX: S61.219A Laceration without foreign body of unspecified finger without damage to nail, initial encounter (principal); I10 Essential (primary) hypertension; W26.0XXA Contact with knife, initial encounter
CPT/HCPCS: 90715; 99282

== ENCOUNTER → 2022-08-19 | Outpatient (CLI) | payer OTHER, SELFPAY ==
--- NOTE | 2022-08-19 11:55 | RAD_ITS ---
STUDY: X-RAY CHEST REASON FOR EXAM: Female, 62 years old. Cough TECHNIQUE: PA and lateral views of the chest. COMPARISON: Comparison is made with prior study dated November 08, 2021. FINDINGS: A right-sided simona catheter is seen with the tip at the junction of the superior vena cava and right atrium. Stable mild elevation of the right hemidiaphragm. Scattered calcified granulomas. There is no demonstrated pleural abnormality. Normal size heart. Normal mediastinum and nima. Normal visualized pulmonary arteries. There is atherosclerotic tortuosity of the aortic arch and descending thoracic aorta. There are diffuse degenerative changes of the visualized thoracic spine. Normal visualized ribs, clavicles, and shoulders. There is no demonstrated abnormality of the visualized soft tissue structures of the upper abdomen. RAD/Chest PA and Lateral IMPRESSION: The lungs are clear. No acute abnormality is seen. Electronically Signed: Vadim Wei MD at 12:11 EDT ,
== END | disposition home or self-care (01) ==
LOC: MTRAD 11:36
PROVIDERS: PCP Internal Medicine; Referring Provider Physician Assistant; Visit Provider Physician Assistant
DX: R05.9 Cough, unspecified (principal)
CPT/HCPCS: 71046

== ENCOUNTER → 2022-09-18 | Outpatient (CLI) | payer OTHER, SELFPAY ==
--- NOTE | 2022-09-18 12:34 | RAD_ITS ---
INDICATION: Back pain EXAMINATION/TECHNIQUE: X-RAY - XR Spine Lumbar Min 4 Views COMPARISON: 04/14/2018 FINDINGS: VERTEBRAE: Preserved vertebral body height. No fracture. No spondylolisthesis. Preservation of the normal lumbar lordosis. Facet arthrosis increases from superior to inferior. DISCS: Diffuse endplate disease and mild disc space loss appears similar to 04/14/2018 INCLUDED ABDOMEN: Included bowel gas pattern is non-obstructive. RAD/L/S Spine Min 4 Views IMPRESSION: Lumbar spine degenerative change, similar to 04/14/2018. Electronically Signed: Marcellus Hayes MD at 16:53 EDT ,
--- NOTE | 2022-09-18 15:25 | RAD_ITS ---
STUDY: X-RAY - LEFT KNEE REASON FOR EXAM: Female, 62 years old. Left knee pain. TECHNIQUE: 3 view(s) of the knee. COMPARISON: April 28, 2018. FINDINGS: Normal visualized distal femur. Normal visualized proximal tibia and fibula. Normal proximal tibiofibular articulation. There is no acute fracture, dislocation or destructive osseous pathology. There is severe degenerative arthrosis of the medial femorotibial compartment with severe joint space narrowing. There is mild degenerative arthrosis of the lateral femorotibial compartment. There is severe degenerative arthrosis of the patellofemoral articulation. There is no demonstrated joint effusion. The soft tissue structures are unremarkable. RAD/Knee 1 or 2 Views IMPRESSION: Progressive arthrosis of the left knee without acute fracture or dislocation. Electronically Signed: Charli Aranda DO at 21:41 EDT ,
== END | disposition home or self-care (01) ==
PROVIDERS: PCP Internal Medicine; Referring Provider Chiropractor; Visit Provider Chiropractor
DX: M25.569 Pain in unspecified knee (principal); M99.03 Segmental and somatic dysfunction of lumbar region; M51.26 Other intervertebral disc displacement, lumbar region
CPT/HCPCS: 72110; 73560

== ENCOUNTER 2022-10-24 15:30 | Outpatient (RCR) | payer OTHER, SELFPAY ==
--- NOTE | 2022-10-08 11:31 | HP.PTEVAL ---
Patient's Visit Information WEST POSADAS is a 62 year old F referred to Physical Therapy by Dr. Batsheva Gonzales DC with a diagnosis of bulging lumbar disc, segmental and somatic dysfunction of lumbar/pelvic reg. Date of Evaluation: 10/08/22 Physical Therapist: Jose Botello DPT - Visit Plan Frequency: 2x /Week Duration: 4 Weeks Plan: Start with extension based progression, but lightly. Add in neutral spine core stability as tolerated. May use US/DN to L side of lumbar spine to reduce muscle guarding as well. - Subjective Pt. is here today for her initial evaluation with diagnosis of bulging lumbar disc, segmental and somatic dysfunction of lumbar/pelvic regions. Pt. reports having increased pain for a few years with intermittent flare ups. Pt. reports having pain in her low back, more left sided and occasionally having pain into her L glute and HS region. Pt. denies and N/T in either LE. She has been seeing chiro with good results, but has had increased pain with her most recent flare up. Pt. has done PT in the past with focus on stretching and piriformis stretching. She has increased pain with increased sitting, better with standing. She does not do any strengthening and has reduced walking due to pain and fear of increasing pain. Pt. is hopeful to reduce symptoms in order to get back to all reacreational and work activities. - Pain Lumbar spine Pain Intensity (Out of 10): 2 Pain Intensity Range: 0, 5 L gluteal region Pain Intensity (Out of 10): 0 Pain Intensity Range: 0, 4 - Objective POSTURE: Pt. has slight reduction in lumbar lordosis. Pt. has normal wt. shift between BLEs. Pt. has increased thoracic kyphosis. PALPATION: Pt. has marked increased muscle tone at mid lumbar spine (erector spinae) on L side. Pain with spring testing at L3-L5 with hypomobility noted. NEURO: normal throughout BLEs. ROM: lumbar spine: flexion mod loss (tight, apprehensive to bend further), extension min loss decrease better, SB min loss bilat NE, rotation min/mod loss bilat NE. Pt. has tight B HS as well. MMT: PT. has 5/5 strength throughout BLEs, except her hips: flexion, abd, ext 4/5 throughout. Core strength: poor. GAIT: Pt. has guarded posture without arm swing during gait. Pt. has no other pain noted. STAIRS: Pt. did well with stairs. No major issues noted. - Special Tests L/S Slump test left side: Negative L/S Slump test right side: Negative L/S Left Straight Leg Raise: Negative L/S Right Straight Leg Raise: Negative Lumbar Standing: Flexion - Mechanical Response: No effect Lumbar Standing: Flexion - Symptoms During Testing: Increases Lumbar Standing: Flexion - Symptoms After Testing: No worse Lumbar Standing: Extension - Mechanical Response: No effect Lumbar Standing: Extension - Symptoms During Testing: Decreases Lumbar Standing: Extension - Symptoms After Testing: Better Lumbar Standing: Right Side Glides - Mechanical Response: No effect Lumbar Standing: Right Side [place] - Symptoms During Testing: No effect Lumbar Standing: Right Side [place] - Symptoms After Testing: No effect Lumbar Standing: Left Side [place] - Mechanical Response: No effect Lumbar Standing: Left Side [place] - Symptoms During Testing: No effect Lumbar Standing: Left Side [place] - Symptoms After Testing: No effect Lumbar Lying: Flexion - Mechanical Response: No effect Lumbar Lying: Flexion - Symptoms During Testing: No effect Lumbar Lying: Flexion - Symptoms After Testing: No effect Lumbar Lying: Extension - Mechanical Response: No effect Lumbar Lying: Extension - Symptoms During Testing: Decreases Lumbar Lying: Extension - Symptoms After Testing: Better - Balance/Special Test Scores Oswestry Low Back Score: 22 - Goals Goal 1:: LTG: Pt. to be I with HEP. Goal Time Frame: 4-6 Weeks Goal 2:: STG: Pt. to be able to sit for unlimited amount of time without increase in symptoms. Goal Time Frame: 2-4 Weeks Goal 3:: LTG: Pt. to have full lumbar ROM without increase in symptoms. Goal Time Frame: 4-6 Weeks Goal 4:: LTG: Pt. to have increased core and hip strength to 5/5 throughout. Goal Time Frame: 4-6 Weeks Goal 5:: LTG: Pt. to complete all work related activities without increase in symptoms. Goal Time Frame: 4-6 Weeks - Rehabilitation Potential Physical Therapy Diagnosis: Pt. has signs and symptoms consistent with bulging lumbar disc, segmental and somatic dysfunction of lumbar/pelvic regions. Pt. has lumbar spine pain with some radicular symptoms into her glute and mid HS at times. She did have some relief with extension and would benefit from core stability exercises to reduce stress to lumbar spine with all work and recreational activities. Rehabilitation Potential: Good - Anticipated Interventions Patient/Client Instruction: Educate patient on: Condition, Plan of Care, Risk Factors, Benefits of Fitness Program For the Purpose of:: To improve decision making, To facilitate caregiver knowledge, To improve self management, To prevent re-injury, To improve ability to perform tasks related to life management, To improve tolerance to ADL's Therapeutic Exercise to Include: Strength training, Power training, Endurance training, Body mechanics, Postural training, Flexibilty training, via Neurocom Balance Mas, Passive ROM, Active ROM, Dynamic Lumbar Stabilization For the Purpose of:: To decrease pain, To increase ROM, To improve nutrient delivery to tissue, To increase oxygenation perfusion, To improve muscle performance and motor function, To improve ability to perform ADL's, To increase tolerance to activity/condition/position, To improve performance and independence with ADL's Manual Therapy Techniques to Include: Mobilization, Functional dry needling For the Purpose of:: To decrease pain, To decrease swelling/inflammation, To increase ROM, To improve nutrient delivery to tissue, To increase oxygenation perfusion, To improve muscle performance and motor function Ultrasound (thermal/non thermal): Yes For the Purpose of:: To decrease pain, To decrease swelling/inflammation, To increase ROM Thank you for the opportunity to evaluate your patient. For Medicare and Medicare HMO plans, please review the plan of care and approve it. It will need to be FAXED BACK to us at [phone] for Medicare purposes. For Medicare only, by signing this I certify the plan of care. Please let me know if there are questions or concerns regarding this plan of care. Physician Signature: Date:
--- NOTE | 2023-02-24 08:19 | HP.PT.NRP ---
Patient Information Patient Information: WEST POSADAS was seen in my office for initial evaluation on 10/08/22. The following Plan of Care was established for this patient: POC Established Initial Frequency: 2x /Week Initial Duration: 4 Weeks Anticipated Interventions Patient/Client Instruction: Educate patient on: Condition, Plan of Care, Risk Factors and Benefits of Fitness Program For the Purpose of:: To improve decision making, To facilitate caregiver knowledge, To improve self management, To prevent re-injury, To improve ability to perform tasks related to life management and To improve tolerance to ADL's Therapeutic Exercise to Include: Strength training, Power training, Endurance training, Body mechanics, Postural training, Flexibilty training, via Neurocom Balance Mas, Passive ROM, Active ROM and Dynamic Lumbar Stabilization For the Purpose of:: To decrease pain, To increase ROM, To improve nutrient delivery to tissue, To increase oxygenation perfusion, To improve muscle performance and motor function, To improve ability to perform ADL's, To increase tolerance to activity/condition/position and To improve performance and independence with ADL's Manual Therapy Techniques to Include: Mobilization and Functional dry needling For the Purpose of:: To decrease pain, To decrease swelling/inflammation, To increase ROM, To improve nutrient delivery to tissue, To increase oxygenation perfusion and To improve muscle performance and motor function Ultrasound (thermal/non thermal): Yes For the Purpose of:: To decrease pain, To decrease swelling/inflammation and To increase ROM Last Seen Last Seen: This patient was last seen in our office 10/29/22. Pertinent comments regarding their Physical therapy will appear below: Pt. has not been seen in several months for PT and is appropriate to be DC from PT at this point in time. At this point I will be discontinuing this patient from physical therapy. I would be happy to see this patient again in the future if found appropriate by the physician. Thank you! Jose Botello, DPT Balance/Gait/Functional tests Balance/Special Test Scores Oswestry Low Back Score: 22
== END 2022-10-24 19:00 | disposition home or self-care (01) ==
LOC: PT 15:30
PROVIDERS: PCP Internal Medicine; Referring Provider Chiropractor; Visit Provider Chiropractor
DX: M51.26 Other intervertebral disc displacement, lumbar region (principal); M99.03 Segmental and somatic dysfunction of lumbar region; M99.05 Segmental and somatic dysfunction of pelvic region
CPT/HCPCS: 97035; 97110; 97161

== ENCOUNTER 2022-11-05 14:31 | Outpatient (CLI) | payer OTHER, SELFPAY ==
[2022-11-07 05:07] LABS: Cancer Antigen 125 6.7 U/mL (0.0-38.1)
== END 2022-11-05 14:32 | disposition home or self-care (01) ==
LOC: MEDOUTP 14:31
PROVIDERS: Nurse Practitioner Adult Health; PCP Internal Medicine; Referring Provider Obstetrics & Gynecology; Visit Provider Obstetrics & Gynecology
DX: C54.1 Malignant neoplasm of endometrium (principal)
CPT/HCPCS: 36591; 86304; A4216

== ENCOUNTER 2023-02-10 13:59 | Outpatient (CLI) | payer OTHER, SELFPAY | END 2023-02-10 14:00 | disposition home or self-care (01) | PROVIDERS: PCP Internal Medicine; Referring Provider Internal Medicine; Visit Provider Internal Medicine | DX: C54.1 Malignant neoplasm of endometrium (principal) | CPT/HCPCS: 96523 ==

== ENCOUNTER → 2023-03-10 | Outpatient (CLI) | payer OTHER, SELFPAY ==
--- NOTE | 2023-03-10 08:31 | CT_ITS ---
EXAM: CT CHEST, ABDOMEN AND PELVIS WITH INTRAVENOUS CONTRAST CLINICAL INDICATION: ENDOMETRIAL CA TECHNIQUE: Helically acquired images were obtained of the chest, abdomen and pelvis with intravenous contrast. This CT exam was performed using one or more of the following dose reduction techniques: automated exposure control, adjustment of the mA and/or kV according to patient size, and/or use of iterative reconstruction technique. CONTRAST: IV 100mL Isovue-300 COMPARISON: 11/30/2020 FINDINGS: CHEST: LUNGS AND PLEURAL SPACES: Unremarkable. No mass. No consolidation or edema. No pleural effusion or thickening. No pneumothorax. HEART: Unremarkable. Heart size is normal. No pericardial effusion. MEDIASTINUM: Unremarkable. No mediastinal or hilar adenopathy. Esophagus is unremarkable. No hiatal hernia. THYROID: Unremarkable. No thyroid lesions. ABDOMEN: LIVER: Unremarkable. Homogeneous. No focal mass. GALLBLADDER AND BILE DUCTS: Unremarkable. No calcified gallstones. No gallbladder distention or wall edema. No intra- or extrahepatic biliary ductal dilation. PANCREAS: Unremarkable. No focal cystic or solid mass. SPLEEN: Unremarkable. Normal size without focal cystic or solid mass. ADRENALS: There is a 2.7 x 2.4 x 2.6 cm low-density mass in the left adrenal gland which is unchanged from the reference examination and may represent an adenoma. KIDNEYS AND URETERS: There is a small low-density mass in the right kidney compatible with a cyst which is stable. No follow-up examination is needed. No hydronephrosis. STOMACH AND BOWEL: Unremarkable. No stomach or bowel distention. No focal inflammatory change. PELVIS: APPENDIX: No evidence of acute appendicitis. BLADDER: Unremarkable. REPRODUCTIVE: The patient status post hysterectomy. CHEST, ABDOMEN and PELVIS: INTRAPERITONEAL SPACE: Unremarkable. No ascites or other fluid collection. No free air. BONES/JOINTS: Unremarkable. No suspicious lytic or blastic abnormality. SOFT TISSUES: Unremarkable. No discrete abdominal or pelvic wall hernia. VASCULATURE: Unremarkable. Aorta is non-dilated. No aortic dissection. No obvious central pulmonary embolism although this study was not performed with the pulmonary embolism protocol. LYMPH NODES: Unremarkable. No enlarged lymph nodes. CT/CT Chest, Abd, Pel w/Contrast IMPRESSION: 1. Status post hysterectomy. 2. Stable low-density mass in the left adrenal gland compatible with adenoma. 3. No pulmonary nodules identified. There are no acute abnormalities within the chest, abdomen or pelvis. Electronically Signed: Tito Escamilla MD at 23:54 EDT ,
[2023-03-10 08:58] LABS: CREATININE FINGERSTICK < 0.9 mg/dL (0.55-1.02); EGFR FINGERSTICK > 60.0000 mL/min (>60)
== END | disposition home or self-care (01) ==
LOC: CT 08:29
PROVIDERS: PCP Internal Medicine; Referring Provider Obstetrics & Gynecology; Visit Provider Obstetrics & Gynecology
DX: C54.1 Malignant neoplasm of endometrium (principal)
CPT/HCPCS: 71260; 74177; Q9967

== ENCOUNTER 2023-03-17 07:40 | Outpatient (CLI) | payer OTHER, SELFPAY ==
[2023-03-18 06:08] LABS: Cancer Antigen 125 6.9 U/mL (0.0-38.1)
== END 2023-03-17 23:59 | disposition home or self-care (01) ==
LOC: LAB 07:42
PROVIDERS: PCP Internal Medicine; Visit Provider Obstetrics & Gynecology
DX: C54.1 Malignant neoplasm of endometrium (principal)
CPT/HCPCS: 36415; 86304

== ENCOUNTER → 2023-03-26 | Outpatient (CLI) | payer OTHER, SELFPAY ==
--- NOTE | 2023-03-26 11:05 | RAD_ITS ---
STUDY: X-RAY - RIGHT HAND REASON FOR EXAM: Female, 63 years old. Pain. TECHNIQUE: 2 view(s) of the hand. COMPARISON: None. FINDINGS: Osteopenia. Normal radiocarpal articulation. Normal distal radioulnar joint. Mild arthrosis of the radial carpal row. Mild arthrosis of the first CMC joint. Mild arthrosis of the MCP and IP joints. Normal soft tissues. RAD/Hand 2 Views IMPRESSION: Osteopenia with mild osteoarthritic changes as described. No acute abnormality or erosive changes. Electronically Signed: Zachariah Orantes MD at 12:24 EDT ,
--- NOTE | 2023-03-26 11:05 | RAD_ITS ---
STUDY: X-RAY - LEFT HAND REASON FOR EXAM: Female, 63 years old. Pain. TECHNIQUE: 2 view(s) of the hand. COMPARISON: None. FINDINGS: Osteopenia. Normal radiocarpal articulation. Normal distal radioulnar joint. Mild arthrosis of the radial carpal row. Mild arthrosis of the first CMC joint. Mild arthrosis of the MCP and IP joints. Normal soft tissues. RAD/Hand 2 Views IMPRESSION: Osteopenia with mild osteoarthritic changes as described. No acute abnormality or erosive changes. Electronically Signed: Zachariah Orantes MD at 12:25 EDT ,
--- NOTE | 2023-03-26 11:10 | RAD_ITS ---
STUDY: X-RAY - PELVIS AND LEFT HIP REASON FOR EXAM: Female, 63 years old. Pain. TECHNIQUE: 3 views of the pelvis and hip. COMPARISON: None. FINDINGS: There is a non-specific bowel gas pattern. Phleboliths. Osteopenia. Mild arthrosis of both sacroiliac joints. Normal bilateral superior and inferior pubic rami. Normal pubic symphysis. Normal bilateral ischial tuberosities. Mild arthrosis of both hips. RAD/HIP, UNI W/ Pelvis 2-3 Views IMPRESSION: Osteopenia with mild arthrosis of both sacroiliac joints and both hips. No acute abnormality or erosive changes. Electronically Signed: Zachariah Orantes MD at 12:26 EDT ,
[2023-03-26 13:25] LABS: Erythrocyte Sedimentation Rate 17 mm/hr (0-30); Vitamin D,25 Hydroxy 45.2 ng/mL
[2023-03-26 13:36] LABS: CRP 6.15 mg/L (0.0-3.0); Rheumatoid Factor < 10.0 IU/mL (<15)
[2023-03-26 13:42] LABS: Hemoglobin A1c 5.5 % (3.8-5.6)
[2023-03-27 12:08] LABS: ANTINUCLEAR ANTIBODIES DIRECT Negative (Negative)
[2023-03-27 13:07] LABS: CCP IgG Antibodies 1 units (0-19)
== END | disposition home or self-care (01) ==
LOC: MTLAB 11:04
PROVIDERS: PCP Internal Medicine; Referring Provider Internal Medicine; Visit Provider Internal Medicine
DX: M79.641 Pain in right hand (principal); M79.642 Pain in left hand; M25.552 Pain in left hip; R73.09 Other abnormal glucose; E55.9 Vitamin D deficiency, unspecified
CPT/HCPCS: 36415; 73120; 73502; 82306; 83036; 84443; 85652; 86038; 86140; 86200; 86431

== ENCOUNTER 2023-06-09 10:18 | Outpatient (CLI) | payer OTHER, SELFPAY | END 2023-06-09 10:19 | disposition home or self-care (01) | LOC: MEDOUTP 10:18 | PROVIDERS: PCP Internal Medicine; Referring Provider Nurse Practitioner Adult Health; Visit Provider Nurse Practitioner Adult Health | DX: C54.1 Malignant neoplasm of endometrium (principal) | CPT/HCPCS: 96523 ==

== ENCOUNTER 2023-06-13 10:00 | Outpatient (RCR) | payer OTHER, SELFPAY ==
--- NOTE | 2023-03-28 09:56 | HP.PTEVAL_ITS ---
Patient's Visit Information Visit Information Visit Information: WEST POSADAS is a 63 year old F referred to Physical Therapy by Dr. Charo Grier DO with a diagnosis of Right Shoulder Pain/Left Hip Pain. Date of Evaluation: 03/27/23 Physical Therapist: Alem Sanchez DPT Visit Plan Frequency: 2x /Week Duration: 4 Weeks Plan: Aquatic PT- focus on LE and core strength/stabilization, proprioception and scapular strength/stabilization- POSTURE Subjective Subjective: She had chemo a couple of years ago and had a lot of joint inflammation in her left hip and knees and right shoulder. 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 Her has been massaging it but it doesn't every really get better. The pain in the shoulder is along the scapula and and radiates down to the deltoid- but does not radiate down past the elbow. Does have a port on the right side. Describes the pain as dull and achy. Worst: 11/09 Agg: computer work, laying on it, certain movements (elevation). Eases: massage, heating pad and mobic, rest Best: 07/12. No N/T in the hand. She does not notice KRISHNA, blurred vision or dizziness. Right hand dominate. Limits her dressing and her ability to participate in ADL's. Left Hip- 3 months on/off and maybe longer- she thinks it maybe coming from her back- probably about 2 years. When she sits at work- she tries to get up and move around- it will freeze up- hard to get up and walk on it- takes a few minutes to be able to bear weight on it. Pain is reported in the greater troch. She sees Dr. Gonzales and she has some bulging disc issues and stenosis that radiates into her buttocks. The new pain is now out into the greater troch and dropping into the glut med which is different from the chronic back pain. She does not feel that she has radiating pain from the hip pain. She reports the pain is more achy pains- not nerve pain. Its very painful when she rolls over on it. At night she has to use a cane when she rolls over onto it. Worst: 11/09 Agg: rolling over at night, when she gets up from sitting, walking a lot, standing a lot. Her ability to stand and walk is so limited right now. She reports no N/T in her toes. Eases: sitting down, laying down on her right side. She 2x a week she does weight training (pull downs, anti rotation, press outs, leg press, abd, add, chest press, mid row- stationary bike)- 1x a week to swim. 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 PMHx/Meds: Objective Objective: Posture: forward head, rounded shoulders- can correct but does not maintain. Gait: mildly antalgic- decreased jony and stride length- no AD HR/TR: able with UE A SLS: Left: 2-3 seconds Right: 5-8 seconds with moderate pelvic drop ROM: Cervical: WNL, Left Shoulder: WNL, Right Shoulder: WNL with the exception of flexion- 120 degrees with pain- does have full AAROM. Elbow/Wrist/Hand: WFL, Lumbar: Flexion: hands to knees, Extn: neutral with discomfort, Rotation: left: WFL, Right: diminished by 25%, Hip/Knee/Ankle: WFL Strength: Scap: poor, Right Shoulder: Flexion: 3+/5, Abd: 4-/5, Ext: 4/5, IR/ER: 4-/5 all with discomfort, Elbow: 4+/5, Core: fair minus. Hip: Flexion: 4-/5, Abd: 4-/5 Glut Med: 3+/5 with pain, Add; 4/5, IR/ER: 4-/5, Extn: 4-/5, Knee: 4+/5, Ankle: 5/5 Flex: HS: moderate, Gastroc: moderate, Quad: moderate Palpation: tender along greater troch, gluts on the left and paraspinals on the left Special Tests L/S Slump test left side: Positive L/S Left Straight Leg Raise: Positive L Hip LULU - Intraarticular Pathology: Positive L Hip FADDIR - Labrum: Positive L Hip Trendelenberg - Glut Medius: Positive L Hip Mamadou - IT Band: Positive Balance/Special Test Scores Lower Extremity Functional Score: 29 Quick DASH Score: 38.6350 Goals Goal 1:: Patient will report participation in home exercise program activities a minimum of 5 days per week, as adjunct to skilled physical therapy intervention in preparation for independent home management upon discharge. Goal Time Frame: 4-6 Weeks Rehabilitation Potential Physical Therapy Diagnosis: Patient presents with hypomobility- she has decreased core and scapular strength/stabilization, flex and muscular endurance leading to poor posture and decreased ability to perform ADL's without pain. Rehabilitation Potential: Fair Anticipated Interventions Patient/Client Instruction: Educate patient on: Benefits of Fitness Program Therapeutic Exercise to Include: Strength training, Endurance training, Balance training, Coordination, Agility training, Body mechanics, Postural training, Flexibilty training, Gait and locomotor training, Neuromotor development, In an aquatic setting, Dynamic Lumbar Stabilization and Scapular Strength/Stabilization For the Purpose of:: To improve muscle performance and motor function Text: Thank you for the opportunity to evaluate your patient. For Medicare and Medicare HMO plans, please review the plan of care and approve it. It will need to be FAXED BACK to us at [phone] for Medicare purposes. For Medicare only, by signing this I certify the plan of care. Please let me know if there are questions or concerns regarding this plan of care. Physician Signature: Date:
--- NOTE | 2023-09-08 10:53 | HP.PT.NRP ---
Patient Information Patient Information: WEST POSADAS was seen in my office for initial evaluation on 03/27/23. The following Plan of Care was established for this patient: POC Established Initial Frequency: 2x /Week Initial Duration: 4 Weeks Anticipated Interventions Patient/Client Instruction: Educate patient on: Benefits of Fitness Program Therapeutic Exercise to Include: Strength training, Endurance training, Balance training, Coordination, Agility training, Body mechanics, Postural training, Flexibilty training, Gait and locomotor training, Neuromotor development, In an aquatic setting, Dynamic Lumbar Stabilization and Scapular Strength/Stabilization For the Purpose of:: To improve muscle performance and motor function Last Seen Last Seen: This patient was last seen in our office . Pertinent comments regarding their Physical therapy will appear below: Patient has new v#- appropriate to be d/c At this point I will be discontinuing this patient from physical therapy. I would be happy to see this patient again in the future if found appropriate by the physician. Thank you! Alem Sanchez, DPT Balance/Gait/Functional tests Balance/Special Test Scores Lower Extremity Functional Score: 29 Quick DASH Score: 29.5450
== END 2023-06-13 19:00 | disposition home or self-care (01) ==
LOC: PT 10:00
PROVIDERS: PCP Internal Medicine; Referring Provider Internal Medicine; Visit Provider Internal Medicine
DX: S46.911D Strain of unspecified muscle, fascia and tendon at shoulder and upper arm level, right arm, subsequent encounter (principal); M25.552 Pain in left hip
CPT/HCPCS: 97110; 97113; 97162; 97164; 97530

== ENCOUNTER 2023-09-04 10:30 | Outpatient (RCR) | payer OTHER, SELFPAY ==
--- NOTE | 2023-08-21 11:45 | HP.PTEVAL ---
Patient's Visit Information Visit Information Visit Information: WEST POSADAS is a 63 year old F referred to Physical Therapy by Dr. Charo Grier DO with a diagnosis of L ITB tendonitis, GT bursitis. Date of Evaluation: 08/21/23 Physical Therapist: Carlos Cardona, DPT, OCS, CSCS Visit Plan Frequency: 2x /Week Duration: 4 Weeks Plan: 2x/week for 4 weeks for 1. rollout and stretch L piriformis and ITB area, stretch same aggressivley. 2. Ensure gym and home lat and post hip strengthening to I.(gym [facility] and home to include donkey kicks, fire hydrants, SLR ext adn abduction, bridging , clamshells with pics. ice as needed Subjective Subjective: Hip pain 2 week ago when she moves a certain way(moving legs in). Had it in in june and got 90% better. It came back 2 weeks ago and worse with sitting. It seized after she moved wrong. Pain is L buttock and lateral hip. X ray was OK. It is intermittent if she moves wrong, stayed flared up for a week. Can only feel it 1/10 lately. Needed to use a cane. Does exercises at home since june. stretching adn gym machines at least 2 x/week and swims. HS stretch piriformis stretch supine trunk rotation, band strength. Doing them every other day. Has not been able to do it alately due to pain. 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 Worse with sitting too much, has standing desk. LB is chronic back pain. No numbness or tingling in leg. Basic ADLs: all are OK but needed help 2 weeks ago for days and used cane. Hobbies:watch [employer] and is OK right now. Careful how she moves especially lifting 7 month old. 70% better now overall. Sleeps on left side. Pain L hip: Pain Intensity (Out of 10): 1 Pain Intensity Range: 0 and 1 Objective Objective: Walks with slight L antalgia, Trasnfers I, steps reciprocal with rail but L leg weak. lumbar AROM limited min in extension and careful, flexion mod llimited and hesitant, SB are OK but R sb gives L hip pain soft tissue. reflexes 2/3 patella and achilles B. Sensation LE WNL to gross light touch B. Hip AROM WFL but hesitant to adduct and flex due to pain and tenderness L hip DF, knee ext and knee flexion all weak on L side slightly vs R 4 vs 4+. hip is abd 3+ B, ext 3 B. flexion 4 B. - LULU, slight + L FADDIR, - scour . Balance/Special Test Scores Lower Extremity Functional Score: 14 Goals Goal 1:: I appropriate HEP ITB stretch adn hip strength gym adn home Goal Time Frame: 2-4 Weeks Goal 2:: Pain L hip 99% better and 1/10 at worst, no hesitancy with movement Goal Time Frame: 2-4 Weeks Goal 3:: Sit for work without incrreeased pain Goal Time Frame: 2-4 Weeks Goal 4:: LEFS score 50 Goal Time Frame: 2-4 Weeks Rehabilitation Potential Physical Therapy Diagnosis: L hip pain limiting function at home Rehabilitation Potential: Fair Anticipated Interventions Patient/Client Instruction: Educate patient on: Condition and Plan of Care For the Purpose of:: To decrease pain, To increase ROM, To improve nutrient delivery to tissue, To improve muscle performance and motor function and To increase tolerance to activity/condition/position Therapeutic Exercise to Include: Strength training and Flexibilty training For the Purpose of:: To decrease pain, To increase ROM, To improve nutrient delivery to tissue, To improve muscle performance and motor function, To increase tolerance to activity/condition/position, To improve ability of physical actions for home/community/work/leisure and To improve gait and locomotor functions Manual Therapy Techniques to Include: Mobilization, Passive ROM and Soft tissue mobilization For the Purpose of:: To decrease pain, To increase ROM and To improve nutrient delivery to tissue Cryotherapy (ice pack, ice massage): Yes For the Purpose of:: To decrease pain and To decrease swelling/inflammation Text: Thank you for the opportunity to evaluate your patient. For Medicare and Medicare HMO plans, please review the plan of care and approve it. It will need to be FAXED BACK to us at [phone] for Medicare purposes. For Medicare only, by signing this I certify the plan of care. Please let me know if there are questions or concerns regarding this plan of care. Physician Signature: Date:
--- NOTE | 2023-09-04 10:48 | HP.PTDCSUM ---
Discharge Summary D/C summary: It has been my pleasure to treat WE[facility] POSADAS referred by Dr. Charo Grier DO, with the diagnosis of L ITB tendonitis, GT bursitis for a total of 5 visit(s). Discharge Date: 09/04/23 Please see the following information for a summary of their discharge status. Subjective Subjective: Getting better. Doing HEP of stretches and strengthening at home without a problem. Pain is 0/10 today. Had some soreness in leg after [employer] workout. Activities : normal but avoiding running and crouching due to hip more kush ITB. Sleeping on L side can still hurt. Pain L hip: Pain Intensity (Out of 10): 3 Overall Improvement % Improvement: 80 Objective Objective/Function: Steps and walking and transfers without hesitation or any real pain today, L slighty stiff going up steps. Goals Goal 1:: I appropriate HEP ITB stretch adn hip strength gym adn home Goal Progress: Goal Met Goal 2:: Pain L hip 99% better and 1/10 at worst, no hesitancy with movement Goal Progress: 80% Goal 3:: Sit for work without incrreeased pain Goal Progress: Progressing Goal 4:: LEFS score 50 Goal Progress: Progressing Plan Plan: d/c to HEP adn gym D/C Information Discharge Comments: Will continue home adn gym ex. d/c sentence: If there are questions or concerns regarding this patient's physical therapy, please feel free to call me at [phone]. Thank you for the referral of this patient. Sincerely, Carlos Cardona, DPT, OCS, CSCS Balance/Gait/Functional tests Balance/Special Test Scores Lower Extremity Functional Score: 44 Improvement % Improvement: 80
== END 2023-09-04 19:00 | disposition home or self-care (01) ==
LOC: PT 10:30
PROVIDERS: PCP Internal Medicine; Referring Provider Internal Medicine; Visit Provider Internal Medicine
DX: M76.32 Iliotibial band syndrome, left leg (principal); M70.62 Trochanteric bursitis, left hip
CPT/HCPCS: 97110; 97140; 97161; 97530

== ENCOUNTER 2023-09-30 11:59 | Outpatient (CLI) | payer OTHER, SELFPAY ==
[2023-10-02 04:07] LABS: Cancer Antigen 125 8.3 U/mL (0.0-38.1)
== END 2023-09-30 12:00 | disposition home or self-care (01) ==
PROVIDERS: PCP Internal Medicine; Visit Provider Nurse Practitioner Adult Health
DX: C54.1 Malignant neoplasm of endometrium (principal)
CPT/HCPCS: 36415; 86304; 96523; A4216

== ENCOUNTER 2023-10-07 10:57 | Outpatient (CLI) | payer OTHER, SELFPAY | END 2023-10-07 10:58 | disposition home or self-care (01) | LOC: MEDOUTP 10:58 | PROVIDERS: PCP Internal Medicine; Referring Provider Obstetrics & Gynecology; Visit Provider Obstetrics & Gynecology | DX: C54.1 Malignant neoplasm of endometrium (principal) | CPT/HCPCS: 96523; A4216 ==

== ENCOUNTER → 2023-10-08 | Outpatient (CLI) | payer OTHER, SELFPAY ==
--- NOTE | 2023-10-08 12:32 | CT_ITS ---
STUDY: CT CHEST, ABDOMEN T PELVIS WITH CONTRAST REASON FOR EXAM: Female, 63 years old. HX OF ENDOMETRIAL CA RADIATION DOSAGE (If Supplied By Facility): CTDIvol = ( 25.41 ) mGy, DLP = ( 1991.19 ) mGycm TECHNIQUE: Transaxial imaging was performed following intravenous administration of Oral and amp; IV Readi-CAT and amp; 100mL Isovue-300. Multiplanar coronal and sagittal images were reformatted. Individualized dose optimization techniques were used for this CT. COMPARISON: Comparison is made with prior study dated March 10, 2023. FINDINGS: CHEST A right-sided portacatheter is seen with the tip in the superior vena cava. There is a 1.1 cm hypodensity in the lower aspect of the left lobe of the thyroid gland. The lungs are normal. There is no demonstrated pleural abnormality. There are calcifications of the coronary arteries. There are small lymph nodes within the mediastinum, which are normal in size and morphology most compatible with reactive lymph hyperplasia. Normal hilar regions. Normal unenhanced pulmonary arteries. Normal aorta arch and descending thoracic aorta. There are mild degenerative changes of the thoracic spine. ABDOMEN Diffuse fatty infiltration of the liver. There are surgical clips in the gallbladder fossa consistent with a prior cholecystectomy. Normal spleen. Normal pancreas. There is a small, circumscribed, smooth, low attenuation left adrenal mass, consistent with an adrenal adenoma. This measures 2.6 cm. This is unchanged. Normal right adrenal gland. 1.3 cm cyst in the posterior aspect of the upper pole of the right kidney. 1 cm cyst in the lower pole of the right kidney. Normal left kidney. Normal visualized stomach. Normal small intestine. Normal colon. There is non-visualization of the appendix. Normal abdominal aorta. Normal inferior vena cava. Normal retroperitoneum. PELVIS Normal urinary bladder. The patient is status post hysterectomy. Normal visualized small intestine. Normal visualized colon. There is no pelvic fluid. There is no pelvic lymphadenopathy or mass lesion. Normal visualized pelvic arteries. Normal abdominal wall. Loss of the normal lumbar lordosis. CT/CT Chest, Abd, Pel w/Contrast IMPRESSION: Stable examination. No acute abnormality is seen. Electronically Signed: Vadim Wei MD at 15:21 EDT ,
[2023-10-08] MEDS: 0.9% Saline Lock 10 ML Syringe IV ×2 (12:40→12:50)
[2023-10-10 15:19] LABS: CREATININE FINGERSTICK < 1 mg/dL (0.55-1.02)
[2023-10-10 15:21] LABS: EGFR FINGERSTICK > 60.0 mL/min (>60)
== END | disposition home or self-care (01) ==
LOC: CT 12:28
PROVIDERS: PCP Internal Medicine
DX: M25.552 Pain in left hip (principal); Z85.42 Personal history of malignant neoplasm of other parts of uterus
CPT/HCPCS: 71260; 74177; Q9967; A4216

== ENCOUNTER → 2023-12-26 | Outpatient (CLI) | payer OTHER, SELFPAY ==
--- NOTE | 2023-12-26 11:18 | RAD_ITS ---
INDICATION: cervical radiculopathy EXAMINATION/TECHNIQUE: X-RAY - XR Spine Cervical 2 or 3 Views COMPARISON: None. FINDINGS: VERTEBRAE: No fracture or subluxation. Spondylosis, moderate at C5-C6 and severe at C6-C7. Disc space narrowing at these levels consistent with degenerative disc disease. Moderate facet arthrosis. No erosive changes. PREVERTEBRAL SOFT TISSUES: Unremarkable. LUNG APICES: Visualized portions unremarkable. RAD/Cerv Spine 2 or 3 Views IMPRESSION: Degenerative changes with no acute abnormality. Electronically Signed: Jerry Doll DO at 7:35 EDT ,
== END | disposition home or self-care (01) ==
LOC: RAD 11:15
PROVIDERS: PCP Internal Medicine; Referring Provider Internal Medicine; Visit Provider Internal Medicine
DX: M54.12 Radiculopathy, cervical region (principal)
CPT/HCPCS: 72040

== ENCOUNTER 2024-01-12 08:00 | Emergency (ER) | payer OTHER, SELFPAY ==
[2024-01-12 08:01] VITALS: BP 164/70; PULSE 83; RESP 16; TEMP 36; O2SAT 99; BMI 35.5
--- NOTE | 2024-01-12 09:01 | EX.ED.DYSGE1 ---
HPI History of Present Illness Chief Complaint: Abscess Informant: patient Narrative Narrative: Tender swollen area left medial breast/chest wall for the past 2 to 3 days. No systemic symptoms. Not draining spontaneously. Started out as a sore area under her bra, realized today it was a little more than that. No history of abscesses that she knows of. Not a diabetic. [facility] Medical History Acute bronchitis, unspecified Contact with and (suspected) exposure to other viral communicable diseases Non-smoker Endometrial cancer Diarrhea Migraines HTN (hypertension) Home Medications ?Medication ?Instructions ?Recorded ?Last Taken ?Type hydrochlorothiazide 25 mg tablet 25 mg PO DAILY 02/25/19 02/25/19 History meloxicam 7.5 mg tablet 7.5 mg PO DAILY pain 02/25/19 02/25/19 History multivitamin 1 ea PO DAILY 02/25/19 02/25/19 History diltiazem HCl 240 mg 240 mg PO DAILY 12/18/21 Unknown History capsule,extended release 24 hr gabapentin 300 mg capsule 300 mg PO QHS 12/18/21 Unknown History loratadine 10 mg tablet (Claritin) 10 mg PO DAILY 12/18/21 Unknown History melatonin 10 mg capsule 10 mg PO HS PRN 12/18/21 Unknown History sulfamethoxazole 800 1 tab PO BID #20 TABLETS 01/12/24 Unknown Rx mg-trimethoprim 160 mg tablet Allergy/AdvReac Type Severity Reaction Status Date / Time midazolam (From Versed) Allergy hypotensive Verified 01/12/24 08:01 codeine AdvReac Vomiting Verified 01/12/24 08:01 erythromycin base AdvReac Vomiting Verified 01/12/24 08:01 Family History Mother Arthritis Migraine Father CAD (coronary artery disease) Hx of CABG Arthritis Surgical History History of total abdominal hysterectomy History of cholecystectomy History of appendectomy Social History Smoking Status: Never smoker alcohol intake: never ROS ROS ED Constitutional Constitutional ED: Denies chills or fever(s) Cardiovascular Cardiovascular: Denies chest pain Gastrointestinal Gastrointestinal: Denies abdominal pain Integumentary Reports abscess EXAM Physical Exam Const Vital Signs: 01/12/24 08:01 Temperature 96.8 F L Temperature Source Temporal Pulse Rate 83 Respiratory Rate 16 Blood Pressure 164/70 H Blood Pressure Mean 101 Pulse Ox 99 Oxygen Delivery Method Room Air Positive well nourished and well developed General Appearance ED: well developed and NAD Eyes PERRL and EOMs intact bilaterally Neck supple Chest Wall Chest Narrative: Tender abscess right chest wall, it is on the medial aspect of the breast, close to her joint to chest wall, there is some surrounding cellulitis and the abscess is about 3 cm in diameter and pointing with a pustule on top no spontaneous draining. There is no drainage from the right nipple or involvement of the areola this is all very medial to all of that. Resp normal respiratory effort Neuro oriented x3, CN's II-XII intact bilaterally, no sensory deficits noted and gait normal Speech: speech normal Motor Exam: strength 5/5 throughout Psych mental status grossly normal Skin Skin Narrative: Abscess medial right breast see above for details. No other rashes or lesions. MDM MDM MDM Narrative Medical decision making narrative: Incision and drainage was performed see the procedure note. This appears to be a simple straightforward cutaneous abscess involving the breast, it is not likely involving any breast tissue since there is no discharge from the nipple, and it is not in the vicinity of the areola. Placed patient on Bactrim given appropriate discharge instructions for care of the wound, removal of gauze, and follow-up with surgeon if she has any issues with that healing which hopefully she will not. She is comfortable with that overall plan. Procedures Other Procedures Procedure(s): Complex abscess incision and drainage right breast: Area prepped and draped in a sterile fashion with isopropanol followed by chlorhexidine, anesthetized locally with 3 cc of plain 1% lidocaine, incised centrally with a #10 blade, small linear incision. Moderate amount of purulent material expressed along with a necrotic plug. Area was deloculated with hemostats, irrigated inside with saline, and packed with half-inch sterile packing gauze. Dressed with bacitracin and gauze. Tolerated well no complications. Discharge Plan Triage Chief Complaint: Abscess ED Provider: Matheus Torres Dx/Rx/DC Orders Clinical Impression: Abscess of breast, right Instructions: ED Abscess Incision And Drainage Prescriptions: New sulfamethoxazole-trimethoprim 800-160 mg tablet 1 tab PO BID Qty: 20 0RF No Action diltiazem HCl 240 mg capsule,extended release 24hr 240 mg PO DAILY gabapentin 300 mg capsule 300 mg PO QHS loratadine [Claritin] 10 mg tablet 10 mg PO DAILY melatonin 10 mg capsule 10 mg PO HS PRN hydrochlorothiazide 25 MG tablet 25 mg PO DAILY multivitamin 1 EACH tablet 1 ea PO DAILY meloxicam 7.5 MG tablet 7.5 mg PO DAILY Primary Care Provider: Charo Grier Referrals: Charo Grier DO [Primary Care Provider] - Kae Thomas MD [Med Staff - Active Staff] - As Needed (if any issues w/ healing) Activity Restrictions/Additional Instructions: Try to leave packing intact for 48 hours and then remove and discard. If it falls out earlier than that, do not worry about it, just continue dressing changes. If there is any water that gets into the area after a shower or what not, you may gently apply pressure to the surrounding area to express it prior to a new dressing change. Antibiotic ointment on the area with these dressing changes okay as well. If you are concerned about it recurring or getting worse, return to the ER for reevaluation. Print Language: Estonian Disposition Disposition: Home, Self Care
[2024-01-12] MEDS: Lidocaine 1% (20 ml mdv) 20 ML Vial INFILT (09:23)
[2024-01-12 10:00] VITALS: BP 137/71; PULSE 72; RESP 16; TEMP 36.6; O2SAT 98
== END 2024-01-12 10:04 | disposition home or self-care (01) ==
PROVIDERS: Emergency Provider Emergency Medicine; PCP Internal Medicine; Visit Provider Emergency Medicine
DX: N61.1 Abscess of the breast and nipple (principal); N64.4 Mastodynia; I10 Essential (primary) hypertension
CPT/HCPCS: 10061; 10060; 99282

== ENCOUNTER 2024-01-19 10:33 | Outpatient (CLI) | payer OTHER, SELFPAY | END 2024-01-19 23:59 | disposition home or self-care (01) | PROVIDERS: PCP Internal Medicine | DX: C54.1 Malignant neoplasm of endometrium (principal) | CPT/HCPCS: 96523; A4216 ==

== ENCOUNTER 2024-01-21 10:30 | Outpatient (RCR) | payer OTHER, SELFPAY ==
--- NOTE | 2023-11-27 11:28 | HP.PTEVAL ---
Patient's Visit Information Visit Information Visit Information: WEST POSADAS is a 63 year old F referred to Physical Therapy by Dr. Charo Grier DO with a diagnosis of Right shoulder pain. Date of Evaluation: 11/27/23 Physical Therapist: Norris Mejias Visit Plan Frequency: 2x /Week Duration: 6 Weeks Plan: Continue with improving right shoulder PROM, AAROM, AROM, and RTC/scapular strengthening as tolerated. Also work on neck strengthening and education on desk ergonomics. Use manual therapy and modalities as needed for pain control. Subjective Subjective: Pt. is a 63 y.o. female who has been having right shoulder pain for a couple of weeks which she feels is from her work activity. Her PLOF includes history of right shoulder pain in the past before this. She had x-ray in the past which was negative. She will also get neck pain on occasion and also occasional numbness/tingling in her right arm. She is right handed. Pt. has difficulty with reaching overhead, reaching out to the side, sleeping, lifting things overhead, pushing/pulling, UE dressing, housework, yard work, and work activity. 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 Her goal with physical therapy is to decrease her pain and get her shoulder stronger. Pt. rates right shoulder at 5/10 currently, at worst 8/10, at best 4/10 and describes the pain as sharp and achy. She is taking Tylenol and Mobic for pain. Her PMH includes uterine cancer, HBP controlled with medication, chronic back pain, gall bladder removed, appendectomy, and hysterectomy. Pt. lives with her . Her hobbies include spending time with family. Objective Objective: Palpation- Vague tenderness over whole right shoulder Cervical AROM- WNL for all motions Left shoulder AROM flexion 178 degrees, abduction 180 degrees, ER 84 degrees, IR 72 degrees Right shoulder AROM flexion 65 degrees pain, abduction 65 degrees, ER 68 degrees, IR 70 degrees Right shoulder PROM flexion 90 degrees pain, abduction 105 degrees pain, ER 40 degrees pain, IR 73 degrees Left shoulder strength flexion 5/5, abduction 5/5, ER 5/5, IR 5/5, elbow flexion 5/5, elbow extension 5/5 Right shoulder strength flexion 2+/5, abduction 2+/5, ER 3-/5, IR 4-/5, elbow flexion 4/5, elbow extension 5/5 Special tests- Hawkin's Tony +, Drop arm -, Painful arc +, Lift off -, Infraspinatus test +, Full can/empty can + Balance/Special Test Scores Quick DASH Score: 72.7250 Goals Goal 1:: Pt. will improve right shoulder AROM flexion and abduction > 160 degrees in order to improve reaching overhead. Goal Time Frame: 4-6 Weeks Goal 2:: Pt. will improve right shoulder strength to 4+/5 for all motions in order to complete ADL's. Goal Time Frame: 4-6 Weeks Goal 3:: Pt. will be able to sleep a full night with no interruptions due to shoulder pain. Goal Time Frame: 4-6 Weeks Goal 4:: Pt. will rate right shoulder pain at worst at 3/10 with ADL's. Goal Time Frame: 4-6 Weeks Goal 5:: Pt. will improve Quick Dash <50% disability in order to improve ADL's. Goal Time Frame: 4-6 Weeks Rehabilitation Potential Physical Therapy Diagnosis: Decreased right shoulder ROM, UE weakness, and pain Rehabilitation Potential: Good Anticipated Interventions Patient/Client Instruction: Educate patient on: Condition and Plan of Care For the Purpose of:: To decrease pain, To increase ROM, To improve ability to perform ADL's, To improve performance and independence with ADL's, To assume or resume ADL's and To improve tolerance to ADL's Therapeutic Exercise to Include: Strength training, Passive ROM, Active ROM and Scapular Strength/Stabilization Comment: Continue with improving right shoulder PROM, AAROM, AROM, and RTC/scapular strengthening. For the Purpose of:: To decrease pain, To increase ROM, To improve ability to perform ADL's, To improve performance and independence with ADL's, To increase flexibility/ROM, To assume or resume ADL's and To improve tolerance to ADL's Functional Training to Include: ADL Training and Functional work training For the Purpose of:: To decrease pain, To increase ROM, To improve ability to perform ADL's, To improve performance and independence with ADL's, To increase flexibility/ROM, To assume or resume ADL's and To improve tolerance to ADL's Manual Therapy Techniques to Include: Mobilization, Passive ROM and Soft tissue mobilization For the Purpose of:: To decrease pain, To increase ROM, To improve ability to perform ADL's, To improve performance and independence with ADL's, To increase flexibility/ROM, To assume or resume ADL's and To improve tolerance to ADL's TENS: Yes IF ES: Yes Cryotherapy (ice pack, ice massage): Yes For the Purpose of:: To decrease pain, To increase ROM, To improve ability to perform ADL's, To improve performance and independence with ADL's, To increase flexibility/ROM, To assume or resume ADL's and To improve tolerance to ADL's Text: Thank you for the opportunity to evaluate your patient. For Medicare and Medicare HMO plans, please review the plan of care and approve it. It will need to be FAXED BACK to us at [phone] for Medicare purposes. For Medicare only, by signing this I certify the plan of care. Please let me know if there are questions or concerns regarding this plan of care. Physician Signature: Date:
--- NOTE | 2024-01-01 10:31 | HP.PTREVAL ---
Re-Evaluation Intro: Dr. Charo Grier, DO, It has been my pleasure to treat WE[facility] POSADAS over the last 10 visits for Right shoulder pain. Please see the progress note below for an update on the physical therapy plan of care! Subjective Subjective: I am doing much better overall, but I still have a lot of pain Objective Objective/Function: R shoulder strength: R shoulder is 4/5 throughout R shoulder ROM: R shoulder flex= 140, abd= 110 degrees Pt is still limited with sleep secondary to pain Pt is progressing well, but still lacks functional strength and ROM Plan Plan Plan: Pt is I with HEP. Pt to continue with HEP and follow up in 3 weeks to be re-assessed. Balance/Gait/Functional tests Balance/Special Test Scores Quick DASH Score: 45.4525 Goals Goals Goal 1:: Pt. will improve right shoulder AROM flexion and abduction > 160 degrees in order to improve reaching overhead. Goal Time Frame: 4-6 Weeks Goal Progress: Progressing Goal 2:: Pt. will improve right shoulder strength to 4+/5 for all motions in order to complete ADL's. Goal Time Frame: 4-6 Weeks Goal Progress: Progressing Goal 3:: Pt. will be able to sleep a full night with no interruptions due to shoulder pain. Goal Time Frame: 4-6 Weeks Goal Progress: Progressing Goal 4:: Pt. will rate right shoulder pain at worst at 3/10 with ADL's. Goal Time Frame: 4-6 Weeks Goal Progress: Progressing Goal 5:: Pt. will improve Quick Dash <50% disability in order to improve ADL's. Goal Time Frame: 4-6 Weeks Anticipated Interventions Anticipated Interventions Patient/Client Instruction: Educate patient on: Condition and Plan of Care For the Purpose of:: To decrease pain, To increase ROM, To improve ability to perform ADL's, To improve performance and independence with ADL's, To assume or resume ADL's and To improve tolerance to ADL's Therapeutic Exercise to Include: Strength training, Passive ROM, Active ROM and Scapular Strength/Stabilization Comment: Continue with improving right shoulder PROM, AAROM, AROM, and RTC/scapular strengthening. For the Purpose of:: To decrease pain, To increase ROM, To improve ability to perform ADL's, To improve performance and independence with ADL's, To increase flexibility/ROM, To assume or resume ADL's and To improve tolerance to ADL's Functional Training to Include: ADL Training and Functional work training For the Purpose of:: To decrease pain, To increase ROM, To improve ability to perform ADL's, To improve performance and independence with ADL's, To increase flexibility/ROM, To assume or resume ADL's and To improve tolerance to ADL's Manual Therapy Techniques to Include: Mobilization, Passive ROM and Soft tissue mobilization For the Purpose of:: To decrease pain, To increase ROM, To improve ability to perform ADL's, To improve performance and independence with ADL's, To increase flexibility/ROM, To assume or resume ADL's and To improve tolerance to ADL's TENS: Yes IF ES: Yes Cryotherapy (ice pack, ice massage): Yes For the Purpose of:: To decrease pain, To increase ROM, To improve ability to perform ADL's, To improve performance and independence with ADL's, To increase flexibility/ROM, To assume or resume ADL's and To improve tolerance to ADL's Re-Evaluation Ending Re-evaluation ending: Please do not hesitate to contact me at [phone] by phone or if you have questions or concerns regarding this new plan of care! Sincerely, Félix Oliveira, PT, ATC
--- NOTE | 2024-01-21 11:00 | HP.PTDCSUM ---
Discharge Summary D/C summary: It has been my pleasure to treat WE[facility] POSADAS referred by Dr. Charo Grier DO, with the diagnosis of Right shoulder pain for a total of 11 visit(s). Discharge Date: Please see the following information for a summary of their discharge status. Subjective Subjective: Pt reports pain is much better overall Pain Right Shoulder: Pain Intensity (Out of 10): 2 Lower cervical: Pain Intensity (Out of 10): 1 Overall Improvement % Improvement: 80 Objective Objective/Function: Pt reports she is I with HEP 80% improvement R shoulder pain ranges from 2-4/10 R shoulder ROM flex= 140, abd= 95 degrees. R shoulder MMT: 4+/5 throughout Goals Goal 1:: Pt. will improve right shoulder AROM flexion and abduction > 160 degrees in order to improve reaching overhead. Goal Progress: Progressing Goal 2:: Pt. will improve right shoulder strength to 4+/5 for all motions in order to complete ADL's. Goal Progress: Progressing Goal 3:: Pt. will be able to sleep a full night with no interruptions due to shoulder pain. Goal Progress: Progressing Goal 4:: Pt. will rate right shoulder pain at worst at 3/10 with ADL's. Goal Progress: Progressing Goal 5:: Pt. will improve Quick Dash <50% disability in order to improve ADL's. Goal Progress: Progressing Plan Plan: Discontinue to HEP D/C Information d/c sentence: If there are questions or concerns regarding this patient's physical therapy, please feel free to call me at [phone]. Thank you for the referral of this patient. Sincerely, Félix Oliveira, PT, ATC Balance/Gait/Functional tests Balance/Special Test Scores Quick DASH Score: 20.4525 Improvement % Improvement: 80
== END 2024-01-21 19:00 | disposition home or self-care (01) ==
LOC: PT 10:30
PROVIDERS: PCP Internal Medicine; Referring Provider Internal Medicine; Visit Provider Internal Medicine
DX: M76.32 Iliotibial band syndrome, left leg (principal); M70.60 Trochanteric bursitis, unspecified hip
CPT/HCPCS: 97110; 97140; 97162; 97530

== ENCOUNTER → 2024-03-31 | Outpatient (CLI) | payer OTHER, SELFPAY ==
--- NOTE | 2024-03-31 15:04 | RAD_ITS ---
STUDY: X-RAY CHEST REASON FOR EXAM: Female, 64 years old. COUGH TECHNIQUE: PA and lateral views of the chest. COMPARISON: Comparison is made with prior study dated August 19, 2022. FINDINGS: A right-sided Port-A-Cath is seen with the tip at the junction of the superior vena cava and right atrium. Hyperinflation. Scattered calcified granulomas. There is no demonstrated pleural abnormality. Normal size heart. Normal mediastinum and nima. Normal visualized pulmonary arteries. Normal visualized aortic arch and descending thoracic aorta. There are degenerative changes of the visualized thoracic spine. Normal visualized ribs, clavicles, and shoulders. There is no demonstrated abnormality of the visualized soft tissue structures of the upper abdomen. RAD/Chest PA and Lateral IMPRESSION: Hyperinflation. No acute abnormality is seen. Electronically Signed: Vadim Wei MD at 15:23 EDT ,
== END | disposition home or self-care (01) ==
LOC: MTRAD 15:03
PROVIDERS: PCP Internal Medicine; Referring Provider Internal Medicine; Visit Provider Internal Medicine
DX: R05.9 Cough, unspecified (principal)
CPT/HCPCS: 71046

== ENCOUNTER → 2024-04-15 | Outpatient (CLI) | payer OTHER, SELFPAY ==
[2024-04-15 07:42] LABS: Mucous, Urine 0 SEEN /hpf (<or=2+); Red Blood Cells-Urine 0 SEEN /hpf (0-5)
[2024-04-15 08:16] LABS: Absolute Lymphocyte Count 1.57 X10^3/uL (0.83-4.51); Absolute Neutrophil Count 4.1 X10^3/uL (2.0-7.7); Basophil# 0.04 X10^3/uL; Basophil% 0.6 % (0-1); Eosinophil# 0.21 X10^3/uL; Eosinophils% 3.2 % (0-5); Hematocrit 41.4 % (37-47); Hemoglobin 14.1 g/dL (12.0-15.0); Lymphocyte # 1.57 X10^3/ul (0.83-4.51); Lymphocyte % 23.7 % (19-41); Mean Corp Hgb Conc 34.1 g/dL (32-36); Mean Corpuscular Hgb 31.3 pg (27.0-32.0); Mean Platelet Vol. 8.8 fl (6.2-12.0); Monocyte# 0.66 X10^3/uL; NRBC Flagged by Analyzer 0 % (0-5); Neutrophil # 4.12 X10^3/uL (2.7-7.7); Neutrophil % 62.2 % (47-70); Platelet Count 311 K/mm3 (150-450); RBC Distribution Width CV 13.3 % (11.6-14.6); White Blood Count 6.6 K/mm3 (4.4-11.0)
[2024-04-15 09:21] LABS: AST(SGOT) 25 U/L (15-37); Alanine Aminotransfer ALT/SGPT 57 U/L (13-56); Albumin, Serum 3.7 g/dL (3.2-5.0); Alkaline Phosphatase 76 U/L (45-117); Anion Gap 5 (5-15); BUN 24 mg/dL (7-18); BUN/Creat Ratio 28.3 RATIO (10-20); Calcium,Total 9.1 mg/dL (8.5-10.1); Chloride 107 mmol/L (98-107); Cholesterol 250 mg/dL (200); Creatinine, Serum 0.85 mg/dL (0.55-1.02); EST Glomerular Filtration Rate 72 mL/min (>60); Est Glom Filt Rate - Afr Amer 87 mL/min (>60); Globulin 3.7 g/dL (2.2-4.2); Glucose 114 mg/dL (74-106); High Density Lipoprotein 67 mg/dL; Protein, Total 7.4 g/dL (6.4-8.2); Sodium Level 140 mmol/L (136-145); Triglycerides 133 mg/dL; Very Low Density Lipoprotein 27 mg/dL (5-40)
[2024-04-15 09:23] LABS: Color, Urine Yellow (Yellow); Glucose, Dipstick Normal (Normal); Ketone-Dipstick Negative (Negative); Leukocyte Esterase-Dipstick Negative /ul (Negative); Nitrite-Dipstick Negative (Negative); Occult Blood-Urine Negative /ul (Negative); Protein-Dipstick Negative (Negative); Specific Gravity, Urine 1.015 (1.002-1.030); Urine Bilirubin Dipstick Negative (Negative); Urine Clarity Clear (Clear); Urine Urobilinogen Normal (Normal)
[2024-04-15 09:50] LABS: Bacteria RARE /hpf (None Seen); Squamous Epithelial Cells - UA 0-5 SEEN /hpf (5-10); White Blood Cells 0-5 SEEN /hpf (0-5)
[2024-04-15 10:03] LABS: Microalbumin,Random Urine < 5.0 mg/L (NO RANGE EST.)
[2024-04-15 12:27] LABS: Vitamin D,25 Hydroxy 31.1 ng/mL
[2024-04-17 10:09] LABS: Cancer Antigen 125 13.2 U/mL (0.0-38.1)
== END | disposition home or self-care (01) ==
LOC: LAB 07:36
PROVIDERS: PCP Internal Medicine; Referring Provider Internal Medicine; Visit Provider Internal Medicine
DX: I10 Essential (primary) hypertension (principal); C54.1 Malignant neoplasm of endometrium; E55.9 Vitamin D deficiency, unspecified; R73.09 Other abnormal glucose; Z92.21 Personal history of antineoplastic chemotherapy
CPT/HCPCS: 36415; 80053; 80061; 81001; 82043; 82306; 82570; 84443; 85025; 86304

== ENCOUNTER → 2024-05-11 | Outpatient (CLI) | payer OTHER, SELFPAY ==
--- NOTE | 2024-05-11 07:23 | BI_ITS ---
MAMMOGRAPHY - BILATERAL SCREENING REASON FOR EXAM: Female, 64 years old. Routine annual screening examination. PERTINENT HISTORY: Non-contributory. TECHNIQUE: Digital bilateral breast wenceslao (3D mammographic acquisition) in the CC and MLO projections. 2-D mediolateral oblique (MLO) and craniocaudad (CC) views of both breasts were obtained. CAD: Full Field Digital Mammography with Computer Added Detection was performed. COMPARISON: Comparison is made with prior study dated May 30, 2022 and July 24, 2020. FINDINGS: Breast Composition: The breasts are heterogeneously dense, which may obscure small masses. There are no dominant masses or suspicious calcifications. Stable small benign-appearing bilateral axillary lymph nodes. No other significant abnormalities are identified. There has been no significant change since the prior study. BI/SCRN MAMM (CAD)W/WENCESLAO BILAT IMPRESSION: Stable bilateral screening mammogram. Yearly follow-up mammogram recommended. (A) ASSESSMENT CATEGORY: BIRADS Category 2: Benign. A letter regarding these results will be sent to the patient by the facility within 30 days. Approximately 10% of breast cancers are not detected by mammography. A normal mammogram should not delay biopsy of a clinically suspicious abnormality. [id number] Electronically Signed: Vadim Wei MD at 8:48 EST ,
== END | disposition home or self-care (01) ==
LOC: OPBI 07:23
PROVIDERS: PCP Internal Medicine; Referring Provider Internal Medicine; Visit Provider Internal Medicine
DX: Z12.31 Encounter for screening mammogram for malignant neoplasm of breast (principal)
CPT/HCPCS: 77063; 77067

== ENCOUNTER → 2024-06-15 | Outpatient (CLI) | payer OTHER, SELFPAY ==
--- NOTE | 2024-06-15 14:33 | RAD_ITS ---
INDICATION: pain EXAMINATION/TECHNIQUE: X-RAY - RIGHT XR Knee Complete 4 Views or More 4 VIEWS COMPARISON: No relevant prior comparison study available FINDINGS: SOFT TISSUES: No soft tissue swelling or gas. No radiopaque foreign body. BONES/JOINTS: No acute fracture or subluxation.. Normal alignment. Severe narrowing of the medial joint compartment with marginal degenerative spurs. Mild degenerative arthrosis of the patellofemoral joint. No evidence of joint effusion. RAD/Knee 4 or More Views IMPRESSION: Degenerative arthrosis of the right kidney. Electronically Signed: Mal Barahona MD at 12:28 EST ,
--- NOTE | 2024-06-15 14:35 | RAD_ITS ---
INDICATION: pain EXAMINATION/TECHNIQUE: X-RAY - LEFT XR Knee Complete 4 Views or More 4 VIEWS COMPARISON: Prior study dated: [09/18/2022 FINDINGS: SOFT TISSUES: No soft tissue swelling or gas. No radiopaque foreign body. BONES/JOINTS: No acute fracture or subluxation.. Normal alignment. Severe narrowing of the medial joint compartment. Mild degenerative arthrosis of the patellofemoral joint. No evidence of joint effusion. No sclerotic or destructive changes observed. RAD/Knee 4 or More Views IMPRESSION: Severe degenerative arthrosis essentially unchanged. Electronically Signed: Mal Barahona MD at 12:29 EST ,
== END | disposition home or self-care (01) ==
LOC: RAD 14:14
PROVIDERS: PCP Internal Medicine; Referring Provider Orthopaedic Surgery; Visit Provider Orthopaedic Surgery
DX: M25.562 Pain in left knee (principal)
CPT/HCPCS: 73564

== ENCOUNTER 2024-08-09 14:24 | Outpatient (CLI) | payer OTHER, SELFPAY | END 2024-08-09 23:59 | disposition home or self-care (01) | LOC: MEDOUTP 14:24 | PROVIDERS: PCP Internal Medicine; Referring Provider Registered Nurse General Practice; Visit Provider Registered Nurse General Practice | DX: Z45.2 Encounter for adjustment and management of vascular access device (principal); C54.1 Malignant neoplasm of endometrium | CPT/HCPCS: 96523; A4216 ==

== ENCOUNTER 2024-08-24 13:32 | Outpatient (CLI) | payer OTHER, SELFPAY ==
[2024-08-24] MEDS: Alteplase 2 MG/2 ML Vial IV (13:54)
== END 2024-08-24 23:59 | disposition home or self-care (01) ==
LOC: MEDOUTP 13:32
PROVIDERS: PCP Internal Medicine; Referring Provider Registered Nurse General Practice; Visit Provider Registered Nurse General Practice
DX: C54.1 Malignant neoplasm of endometrium (principal)
CPT/HCPCS: 36593; 96523; J2997; A4216

== ENCOUNTER → 2024-10-11 | Outpatient (CLI) | payer OTHER, SELFPAY ==
[2024-10-12 04:07] LABS: Cancer Antigen 125 9.6 U/mL (0.0-38.1)
== END | disposition home or self-care (01) ==
PROVIDERS: PCP Internal Medicine
DX: R97.1 Elevated cancer antigen 125 [CA 125] (principal)
CPT/HCPCS: 36415; 86304

== ENCOUNTER → 2024-11-01 | Outpatient (CLI) | payer OTHER, SELFPAY | END | disposition home or self-care (01) | LOC: LABSPEC 08:24 | PROVIDERS: PCP Internal Medicine; Visit Provider Nurse Practitioner Family | DX: R82.90 Unspecified abnormal findings in urine (principal) | CPT/HCPCS: 87077; 87086; 87088; 87186 ==

== ENCOUNTER 2024-12-06 14:59 | Outpatient (RCR) | payer OTHER, SELFPAY | END 2024-12-30 23:59 | LOC: NS 14:59 | PROVIDERS: PCP Internal Medicine; Referring Provider Nurse Practitioner Family; Visit Provider Nurse Practitioner Family | DX: Z71.3 Dietary counseling and surveillance (principal); E66.812 Obesity, class 2; Z68.35 Body mass index [BMI] 35.0-35.9, adult | CPT/HCPCS: 97802 ==

== ENCOUNTER 2025-01-25 13:27 | Outpatient (CLI) | payer OTHER, SELFPAY | END 2025-01-25 23:59 | disposition home or self-care (01) | LOC: MEDOUTP 13:27 | PROVIDERS: PCP Internal Medicine | DX: C54.1 Malignant neoplasm of endometrium (principal) | CPT/HCPCS: 96523; A4216 ==

== ENCOUNTER → 2025-03-03 | Outpatient (CLI) | payer OTHER, SELFPAY ==
[2025-03-03 08:59] LABS: Creatinine, Urine (random) 27.20 mg/dL (28.00-217.00)
[2025-03-03 09:04] LABS: Microalbumin,Random Urine < 12.0 mg/L (<20 mg/L)
[2025-03-03 09:15] LABS: Vitamin D,25 Hydroxy 35.2 ng/mL (30-100)
--- OUTSIDE RECORDS SUMMARY | 2025-03-04 00:11 | XMS RPT_ITS | CCD ---
Author Organization [facility] Care Team Providers Care Repairer Recreational Vehicle Name Role Phone Charo Swenson Unavailable Rasheed Pritchett Unavailable Jeffry Alva Unavailable Maryana Santamaria Unavailable Gravius, Hattie Unavailable Unavailable HuffmanLuis Unavailable Unavailable Messenger, Luis Unavailable Unavailable Unavailable Unavailable Charo Swenson Unavailable Shreyas [place] Unavailable [facility], [facility] Unavailable Jeffry Alva Unavailable Maryana Santamaria Unavailable Brice Duran Unavailable Unavailable Messenger, Luis Unavailable Unavailable Gravius, Hattie Unavailable Unavailable Unavailable Unavailable Veronica Aranda Unavailable [phone] Cathleen Vela Unavailable Unavailable Gosia De La Torre Unavailable Unavailable Slarb, Jackie Unavailable Unavailable BasalJarrett mcmahon Unavailable Brice Duran Unavailable Unavailable Messenger, Luis Unavailable Unavailable BoneYong gonsalvesa M Unavailable Sophia Bearden Unavailable Unavailable Gravius, Hattie Unavailable Unavailable Marnie Alonso Unavailable Unavailable Cat Bolanos Unavailable Brice Laguerre Unavailable Unavailable Michelle Cuellar Unavailable ManBessie vazsea Unavailable Unavailable Fast, Di A Unavailable Charo Swenson DO Unavailable Mibraydenel, [place] Unavailable Dr. Jarrett Herring Unavailable Michelle Cuellar Unavailable Cat Bolanos Unavailable [facility], He [facility] Unavailable Dr. Jeffry Alva Unavailable Maryana Santamaria Unavailable Veronica Aranda Unavailable [place] WEB DESIGN SPECIALIST, Elvie Unavailable Unavailable Shade GENERAL WAREHOUSE ASSOCIATE, Brice Unavailable Unavailable Britt, Gosia Unavailable Unavailable Monisha GENERAL WAREHOUSE ASSOCIATE, Sophia Unavailable Unavailable Aren WEB DESIGN SPECIALIST, Hattie Unavailable Unavailable Elmer RN, Luis Unavailable Unavailable Fast DO, Di A Unavailable Unavailable Unavailable DR CHARO SWENSON DO Primary Care Physician [phone] Dr. Charo Swenson Primary Care Provider [phone] Dr. Charo Swenson Referring Provider [phone] ALLIE Culp Attending Provider Charo Swenson DO Unavailable [phone] CHARO SWENSON DO Primary Care Physician [phone] Dr. Batsheva Charles Attending Provider [phone] Dr. Charo Swenson Primary Care Provider [phone] Dr. Charo Swenson Referring Provider Dr. Charo Swenson Primary Care Provider [phone] Dr. Charo Swenson Referring Provider [phone] Dr. Batsheva Charles Attending Provider [phone] Cat Bolanos Unavailable Slarb GENERAL WAREHOUSE ASSOCIATE, Jackie Unavailable Unavailable Brendan GATE KEEPER, Kimberley Unavailable [phone] Radha Mina Unavailable Unavailable Shirley WEB DESIGN SPECIALIST, Kayela Unavailable Unavailable Dr. Charo Swenson Primary Care Provider [phone] Dr. Charo Swenson Referring Provider Dr. Batsheva Charles Attending Provider [phone] ALLIE Culp Attending Provider [phone] ALLIE Pearson Attending Provider Charo Swenson DO Attending Unavailable Charo Swenson DO Referring Unavailable Charo Swenson DO Consulting Unavailable Dr. Charo Swenson Primary Care Provider [phone] Dr. Charo Swenson Referring Provider [phone] Dr. Batsheva Charles Attending Provider [phone] Charo Swenson DO Unavailable Radha Mina Unavailable Rasheed Pritchett Unavailable Radha Mina Unavailable Unavailable Dr. Jarrett Herring Unavailable [phone] Michelle Cuellar Unavailable Cat Bolanos Unavailable [facility], [facility] Unavailable Dr. Jeffry Alva Unavailable Maryana Santamaria Unavailable Veronica Aranda Unavailable [phone] Leti OCAMPO, Kayela Unavailable Unavailable Shade MENSAH, Brice Unavailable Unavailable Monisha MENSAH, Sophia Unavailable Unavailable Gosia De La Torre Unavailable Unavailable Aren OCAMPO, Hattie Unavailable Unavailable Luis Payne RN Unavailable Unavailable Jeannine Peace MA Unavailable Unavailable Unavailable Unavailable [facility] Unavailable César MENSAH, González Unavailable Unavailable Dr. Charo Swenson Primary Care Provider [phone] Dr. Charo Swenson Referring Provider Dr. Batsheva Charles Attending Provider [phone] Charo Swenson Primary Care Provider [phone] Leela, Dr. Mancilla Referring Provider Dossi, Dr. Herman Attending Provider ELANA WALTERS, MILLY Attending Unavaila ble LEELA DO, DR MANCILLA Primary Care Unavailab luke MINA MD, RADHA Attending Unavailable LEELA DO, DR MANCILLA Primary Care Unavailab luke LEGGETT INTERNAL CONTROLS ANALYST-GATE KEEPER, YONG Attending Unavaila ble LEELA DO, DR MANCILLA Primary Care Unavailab le Leela DO, Dr. Mancilla Primary Care Provider [phone] Leela DO, Dr. Mancilla Attending Provider [phone] Leela DO, Dr. Mancilla Referring Provider [phone] Dossi DC, Dr. Herman Attending Provider [phone] Borruso , Dr. Mas Attending Provider Mellisa ARRIOLA, Dr. Mas Referring Provider Kendrick MANAGER STORY-C, Karin Attending Provider Duarte MANAGER STORY-C, Giana Attending Provider Duarte MANAGER STORY-C, Giana Referring Provider Leela ARRIOLA, Dr. Mancilla Primary Care Provider Leela DO, Dr. Mancilla Attending Provider [phone] Leela DO, Dr. Mancilla Referring Provider [phone] Leela , Dr. Mancilla Primary Care Provider Leela DO, Dr. Mancilla Referring Provider [phone] Dossi DC, Dr. Herman Attending Provider HALLSOLEDAD Attending Provider SOLEDAD CASTLE Referring Provider Leela ARRIOLA, Dr. Mancilla Primary Care Provider Mellisa ARRIOLA, Dr. Mas Attending Provider Shahram MANAGER STORY-C, Lisa Attending Provider Leela ARRIOLA, Dr. Mancilla Primary Care Provider [phone] Leela DO, Dr. Mancilla Referring Provider [phone] LEELA DO, DR MANCILLA Primary Care Unavailab Asim WALTERS, SOLEDAD Attending Unavailable LEELA DO, DR MANCILLA Primary Care Unavailab Asim WALTERS, SOLEDAD Attending Unavailable ELANA WALTERS, MILLY Attending Unavaila ble LEELA DO, DR MANCILLA Primary Care Unavailab luke HUITRON MD, MILLY Attending Unavaila ble LEELA DO, DR MANCILLA Primary Care Unavailab le Leela DO, Dr. Mancilla Primary Care Provider [phone] Leela DO, Dr. Mancilla Referring Provider [phone] Doshalima DC, Dr. Herman Attending Provider [phone] Kendrick MANAGER STORY-CKarin Attending Provider Kendrick MANAGER STORY-C, Karin Referring Provider Leela DO, Dr. Mancilla Primary Care Provider [phone] Leela DO, Dr. Mancilla Referring Provider [phone] Christian HERNANDEZ, Dr. Herman Attending Provider [phone] Whit Cuellar Attending Provider Unavailable Whit Cuellar Referring Provider Unavailable Leela DO, Dr. Mancilla Primary Care Provider Leela DO, Dr. Mancilla Referring Provider [phone] Leela DO, Dr. Mancilla Primary Care Physician Shahram MANAGER STORY-CLisa Attending Physician [phone] Kendrick MANAGER STORY-CKarin Attending Physician Whit Cuellar Attending Physician Unavailable Doshalima HERNANDEZ, Dr. Herman Attending Physician Cahro Swenson Attending Unavailable Charo Swenson Referring Unavailable Charo Swenson Primary Care Unavailable Whit Cuellar Referring Unavailable Charo Swenson Primary Care Unavailable Whit Cuellar Attending Unavailable Lisa Omalley Attending Unavailable Charo Swenson Primary Care Unavailable MATHEUS ALVES Attending Unavailable MATHEUS ALVES Referring Unavailable Charo Swenson Primary Care Unavailable Giana Ramachandran Attending Unavailable DuarteGiana palmer Referring Unavailable Leela, Charo Primary Care Unavailable Leela, Charo Referring Unavailable Leela, Charo Primary Care Unavailable Dossi, Batsheva Attending Unavailable Dossi, Batsheva Attending Unavailable Leela, Charo Referring Unavailable Leela, Charo Primary Care Unavailable MarksKarin Attending Unavailable Leela, Charo Referring Unavailable Leela, Charo Primary Care Unavailable Leela, Charo Referring Unavailable Borruso Chace Attending Unavailable Leela, Charo Primary Care Unavailable Marks, Karin Attending Unavailable Marks, Karin Referring Unavailable Leela, Charo Primary Care Unavailable Marks, Karin Attending Unavailable Marks, Karin Referring Unavailable Leela, Charo Primary Care Unavailable BorrusoChace Attending Unavailable Leela, Charo Primary Care Unavailable Alexandru Culp Attending Unavailable Leela, Charo Referring Unavailable Leela, Charo Primary Care Unavailable Leela, Charo Referring Unavailable Leela, Charo Primary Care Unavailable Dossi, Batsheva Attending Unavailable Karin Marks Attending Unavailable Leela, Charo Referring Unavailable Leela, Charo Primary Care Unavailable Leela, Charo Referring Unavailable Borruso, Chace Attending Unavailable Leela, Charo Primary Care Unavailable Karin Marks Attending Unavailable Elela, Charo Referring Unavailable Leela, Charo Primary Care Unavailable Leela, Charo Referring Unavailable Leela, Charo Primary Care Unavailable Doshalima, Batsheva Attending Unavailable Kendrick, Karin Attending Unavailable Leela, Charo Referring Unavailable Leela, Charo Primary Care Unavailable Alexandru Culp Attending Unavailable Leela, Charo Referring Unavailable Leela, Charo Primary Care Unavailable Borruso Chace Attending Unavailable Edgarruso Chace Referring Unavailable Leela, Charo Primary Care Unavailable Leela, Charo Primary Care Unavailable DuarteGiana palmer Attending Unavailable Duarte, Marenanne Referring Unavailable Leela, Charo Referring Unavailable Leela, Charo Primary Care Unavailable Leela, Charo Attending Unavailable Dossi, Batsheva Attending Unavailable Leela, Charo Referring Unavailable Leela, Charo Primary Care Unavailable Dossi, Batsheva Attending Unavailable Leela, Charo Referring Unavailable Lelea, Charo Primary Care Unavailable Karin Marks Attending Unavailable Leela, Charo Referring Unavailable Leela, Charo Primary Care Unavailable Karin Marks Attending Unavailable Leela, Charo Referring Unavailable Leela, Charo Primary Care Unavailable Leela, Charo Referring Unavailable TempleLisa irvin Attending Unavailable Leela, Charo Primary Care Unavailable Leela, Charo Referring Unavailable Dossi, Batsheva Attending Unavailable Leela, Charo Primary Care Unavailable Leela, Charo Referring Unavailable Dossi, Batsheva Attending Unavailable Leela, Charo Primary Care Unavailable Marks, Karin Attending Unavailable Leela, Charo Referring Unavailable Leela, Charo Primary Care Unavailable Leela, Charo Attending Unavailable Leela, Charo Referring Unavailable Leela, Charo Primary Care Unavailable Dossi, Batsheva Attending Unavailable Leela, Charo Referring Unavailable Leela, Charo Primary Care Unavailable Allergies Allergy Classification Reported Allergen(s) Allergy Type Date of Onset Reaction(s) Facility Benzodiazepines (1 source) Midazolam; Translations: [midazolam] Drug Allergy Non-specific (qualifier value) [facility] Macrolides (antibiotic) (1 source) Erythromycin; Translations: [erythromycin] Drug Allergy Non-specific (qualifier value) [facility] PACLitaxel (1 source) PACLitaxel; Translations: [paclitaxel] Drug Allergy [facility] (20 sources) Codeine/Codeine Derivatives; Translations: [Codeine/Codeine Derivatives] allergy to substance [facility] Work Phone: Comment on above: sick (20 sources) Erythromycins; Translations: [Erythromycins] allergy to substance [facility] Work Phone: Comment on above: sick (20 sources) Erythromycin; Translations: [erythromycin] Drug Allergy 01-18-20 21 Non-specific (qualifier value) [facility] (20 sources) Midazolam; Translations: [midazolam] Drug Allergy 01-18-20 21 Non-specific (qualifier value) [facility] (10 sources) PACLitaxel; Translations: [paclitaxel] Drug Allergy back [facility] (20 sources) Codeine; Translations: [codeine] Drug Allergy 01-18-20 Vomiting (disorder) [facility] (1 source) Codeine Drug Allergy 02-25-20 [facility] (1 source) Erythromycin Drug Allergy 02-25-20 [facility] (1 source) Midazolam Drug Allergy 02-25-20 [facility] NEGATED: Highlighted row has been ruled out! (1 source) drug allergy 02-19-20 [facility] Work Phone: NEGATED: Highlighted row has been ruled out! (1 source) drug allergy 02-19-20 [facility] Work Phone: NEGATED: Highlighted row has been ruled out! (1 source) Allergy to drug (finding) 02-19-20 [facility]; [facility] Work Phone: NEGATED: Highlighted row has been ruled out! (1 source) Allergy to drug (finding) 02-19-20 [facility]; [facility] Work Phone: NEGATED: Highlighted row has been ruled out! (1 source) Allergy to drug (finding) 02-19-20 [facility]; [facility] Work Phone: Medications Current Medications Medication Drug Class(es) Dates Sig (Normalized) Sig (Original) acetaminophen 325 mg oral capsule (20 sources) Start: 12-27-2020 acetaminophen 325 mg oral capsule Dose : 650 mg = 2 cap(s), Oral, q4h, # 90 cap(s), 0 Refill(s), Pharmacy: [facility], 170.2, cm, 12/26/20 16:54:00 EDT, Height, kg, 12/26/20 16:54:00 EDT, Dosing Weight Start Date: 12/27/20 Status: Ordered Quantity: 90.0 Unit: cap(s) Repeat number: 1 [id number] 200 actuat albuterol 0.09 mg/actuat metered dose inhaler (20 sources) beta2-Adrenergic Agonist Start: 03-25-2024 Albut miquel Sulfate 90 mcg/actuation HFA aerosol inhaler Active 2 NMA INHALATION EVERY 6 HOURS as needed for shortness of breath or wheezing 8.5 0 March 25, 2024 12:00am Complies with drug therapy Start: 08-21-2022 End: 03-26-2023 Start: 08-21-2022 Proventil HFA 90 mcg/actuation inhalation HFA Aerosol with Adapter 2 (two) inhalation q 4 hr prn cough, wheeze or sob for 0 days Quantity: 1 {Unspecified} Refills: 0 Ordered: 21-Aug-2022 Richard Landeros CMA Start : 21-Aug-2022 Active Comments: dispense one inhaler Comment on above: dispense one inhaler amoxicillin 875 mg / clavulanate 125 mg oral tablet (20 sources) Penicillin-class Antibacterial Start: End: take 1 tablet by mouth every twelve hours amoxicillin-clavul anate 875 mg-125 mg oral tablet 1 tab(s), Oral, q12h, X 5 day(s), # 10 tab(s), 0 Refill(s), 12/18/24 8:58:00 AM EDT, Pharmacy: [facility], 170.2, cm, 12/13/24 8:21:00 EDT, Height, 100.6, kg, 12/13/24 8:21:00 EDT, Dosing Weight Start Date: 12/13/24 Stop Date: 12/18/24 Status: Ordered Quantity: 10.0 Unit: tab(s) Repeat number: 1 Start: 08-19-2022 End: 07-28-2023 Amoxicillin-Pot Clavulanate 875-125 mg tablet Discontinued 1 {tbl} PO TWICE A DAY August 19, 2022 12:00am July 28, 2023 2:44pm Start: 08-19-2022 End: 07-28-2023 take 1 tablet by mouth twice daily Amoxicillin-Pot Clavulanate Discontinued 1 TABLET PO TWICE A DAY August 19, 2022 12:00am July 28, 2023 2:44pm Comment on above: Dr. Sandoval calcium carbonate 1500 mg oral tablet (6 sources) Start: 07-17-19 calcium (as carbonate) 600 mg oral tablet Dose : 600 mg = 1 tab(s), Oral, qDay, 0 Refill(s) Start Date: 07/17/22 Status: Ordered Repeat number: 1 dexamethasone 4 mg oral tablet (20 sources) Corticosteroid Start: 09-30-19 take 1 tablet by mouth once daily dexamethasone 4 mg oral tablet See Instructions, Take ii tabs the night before chemo. Take ii tabs on days 2,3, and 4 after chemo., # 48 tab(s), 2 Refill(s), Pharmacy: [facility], 171, cm, 09/29/20 9:36:00 EDT, Height, kg, 09/29/20 9:36:00 EDT, Dosing Weight Start Date: 09/29/20 Status: Ordered 24 hr dilTIAZem hydrochloride 240 mg extended release oral capsule (20 sources) Calcium Channel Sedrick Start: 09-29-19 take 1 capsule by mouth once daily Diltiazem Hcl 240 mg capsule,extended release 24hr Active 240 mg PO DAILY December 18, 2021 12:00am Complies with drug therapy Start: 09-01-2020 Cardizem 120 m g oral tablet Dose : 120 mg = 1 tab(s), Oral, qAM, # 90 tab(s), 0 Refill(s) Start Date: 09/01/20 Status: Ordered Start: 02-02-2019 End: 12-18-2021 take 1 capsule by mouth once daily Diltiazem Hcl 120 MG capsule Discontinued 120 mg PO DAILY February 25, 2019 12:00am December 18, 2021 11:25am Start: 01-25-2019 End: 02-01-2019 take 1 capsule by mouth once daily Diltiazem Hcl 120 mg capsule,extended release 24hr Discontinued 120 mg PO DAILY 7 7 0 January 25, 2019 12:00am January 31, 2019 12:00am February 01, 2019 12:07am Essential (primary) hypertension Start: 09-06-2016 End: 09-06-2016 docusate sodium 100 mg oral capsule (20 sources) Start: 01-25-2021 Colace 100 mg oral capsule Dose : 100 mg = 1 cap(s), Oral, qDay, PRN as needed for constipation, # 20 cap(s), 0 Refill(s) Start Date: 03/13/22 Status: Ordered Flonase 50 mcg/inh nasal spray (3 sources) Start: 02-19-2021 take 1 dose nasal route once daily in the morning Flonase 50 mcg/inh nasal spray Dose = 1 spray(s), Nostril, each, qAM, 0 Refill(s) Start Date: 02/19/21 Status: Ordered fluticasone propionate 0.05 mg/actuat metered dose nasal spray (20 sources) Corticosteroid Start: 07-17-2022 take 1 dose nasal route twice daily fluticasone 50 mcg/inh NASAL spray Dose = 1 spray(s), Nostril, each, BID, 0 Refill(s) Start Date: 07/17/22 Status: Ordered Repeat number: 1 Start: 02-19-2021 take 1 dose nasal ro malik once daily in the morning Flonase 50 mcg/inh nasal spray Dose = 1 spray(s), Nostril, each, qAM, 0 Refill(s) Start Date: 02/19/21 Status: Ordered Flonase 50 MCG/D OSE Nasal Inhaler (50 MCG/DOSE) Inactive gabapentin 300 mg oral capsule (20 sources) Anti-epileptic Agent Start: 11-09-2021 End: 01-06-2025 take 1 capsule by mouth at bedtime Gabapentin 300 mg capsule Active 300 mg PO AT BEDTIME December 18, 2021 12:00am Complies with drug therapy Start: 07-12-2021 End: 10-10-2021 gabapentin 300 mg oral capsu le Dose : 300 mg = 1 cap(s), Oral, qHS, # 30 cap(s), 2 Refill(s), Pharmacy: [facility], Neuropathy, 170.2, cm, 07/12/21 11:37:00 EST, Height, 105.8, kg, 07/12/21 11:37:00 EST, Dosing Weight Start Date: 07/12/21 Stop Date: 10/10/21 Status: Ordered Start: 02-07-2021 End: 05-08-2021 gabapentin 300 mg oral capsu le Dose : 300 mg = 1 cap(s), Oral, qHS, # 30 cap(s), 2 Refill(s), Pharmacy: [facility], Neuropathy, 170.2, cm, 01/31/21 8:20:00 EDT, Height, 99, kg, 02/01/21 8:26:00 EDT, Dosing Weight Start Date: 02/07/21 Stop Date: 05/08/21 Status: Ordered hydroCHLOROthiazide 25 mg oral tablet (20 sources) Thiazide Diuretic Start: 01-29-2019 take 1 tablet by mouth once daily Hydrochlorothiazide 25 MG tablet Active 25 mg PO DAILY February 25, 2019 12:00am Complies with drug therapy Start: 04-12-2015 End: 02-27-2017 take 1 tablet by mouth once daily HydroCHLOROthiazide 25 MG Oral Tablet 1 Tablet qd for 0 days Quantity: 90 {Tablet} Refills: 3 Ordered: 27-Feb-2017 Luis Payne LPN Start : 12-Apr-2015 End : 27-Feb-2017 Inactive loratadine 10 mg oral tablet (20 sources) Start: 12-18-2021 take 1 tablet by mouth once daily Loratadine (Claritin) 10 mg tablet Active 10 mg PO DAILY December 18, 2021 12:00am Complies with drug therapy Start: 12-12-2020 loratadine 10 mg oral capsule Dose : 10 mg = 1 cap(s), Oral, qAM, # 10 cap(s), 0 Refill(s) Start Date: 12/12/20 Status: Ordered Quantity: 10.0 Unit: cap(s) Repeat number: 1 Start: 09-23-2012 End: 03-01-2015 take 1 tablet by mouth once daily CLARITIN, 10MG (Oral Tablet) 1 Tablet qd for 0 days Quantity: 30 {Tablet} Refills: 3 Ordered: 01-Mar-2015 Jackie Saez LPN Start : 23-Sep-2012 End : 01-Mar-2015 Discontinued Magnesium (10 sources) Start: 07-07-2024 take 1 tablet by kadeem th once daily Magnesium 200 mg tablet Active 200 mg PO daily July 07, 2024 1:00am Complies with drug therapy Start: 07-07-2024 take 1 tablet by kadeem th once daily Magnesium 200 mg tablet Active 200 mg PO daily July 07, 2024 1:00am Magnesium glycinate (4 sources) Start: 03-19-2023 magnesium glyc inate 200 mg oral tablet Dose : 200 mg = 1 tab(s), Oral, qDayPC, # 180 tab(s), 0 Refill(s) Start Date: 03/19/23 Status: Ordered Quantity: 180.0 Unit: tab(s) Repeat number: 1 Start: 03-19-2023 magnesium glyc inate 200 mg oral tablet Dose : 200 mg = 1 tab(s), Oral, qDayPC, # 180 tab(s), 0 Refill(s) Start Date: 03/19/23 Status: Ordered magnesium lactate 84 mg extended release oral tablet (20 sources) Start: 09-29-2020 magnesium lact ate 84 mg oral tablet, extended release Dose : 84 mg = 1 tab(s), Oral, BID, Start taking the day after chemo and continue daily after that., # 120 tab(s), 2 Refill(s), Pharmacy: [facility], 171, cm, 09/29/20 9:36:00 EDT, Height, kg, 09/29/20 9:36:00 EDT, Dosing Weight Start Date: 09/29/20 Status: Ordered melatonin 10 mg oral capsule (20 sources) Start: 12-18-2021 take 1 capsule by mouth at bedtime as needed Melatonin 10 mg capsule Active 10 mg PO BEDTIME as needed December 18, 2021 12:00am Complies with drug therapy Start: 04-04-2021 take 2 tablets by mo [facility] once daily at bedtime as needed for sleep melatonin 10 mg oral tablet, extended release 2 TAB, Oral, qHS, PRN as needed for sleep, # 60 tab(s), 0 Refill(s) Start Date: 04/04/21 Status: Ordered Quantity: 60.0 Unit: tab(s) Repeat number: 1 multivitamin (20 sources) Start: 01-25-2021 take 1 tablet by kadeem th once daily Multivitamin Dose = 2 tab(s), Oral, Daily, 0 Refill(s) Start Date: 01/25/21 Status: Ordered Repeat number: 1 Start: 01-25-2021 take 1 tablet by kadeem th once daily Multivitamin Dose = 2 tab(s), Oral, Daily, 0 Refill(s) Start Date: 01/25/21 Status: Ordered Start: 02-25-2019 Multivitamin A ctive 1 EACH PO DAILY February 25, 2019 7:23pm Start: 02-25-2019 Multivitamin A ctive 1 EACH PO DAILY February 24, 2019 11:00pm Start: 02-25-2019 Multivitamin A ctive 1 EACH PO DAILY February 25, 2019 12:00am take 1 tablet by kadeem th once daily MULTIVITAMIN (PO Tab) 1 QD for 0 days Refills: 0 Ordered: 24-Aug-2008 Mast RN, Alexus Active Multivitamin 1 EACH tablet (10 sources) Start: 02-25-2019 Multivitamin 1 EACH tablet Active 1 NMA PO DAILY February 25, 2019 12:00am Complies with drug therapy Start: 02-25-2019 Multivitamin 1 EACH tablet Active 1 NMA PO DAILY February 25, 2019 12:00am OLANZapine 5 mg oral tablet (20 sources) Atypical Antipsychotic Start: 09-29-2020 OLANZap ine 5 mg oral tablet Dose : 5 mg = 1 tab(s), Oral, Daily, Take every 24hrs for nausea. May cause drowsiness., # 30 tab(s), 2 Refill(s), Pharmacy: [facility], 171, cm, 09/29/20 9:36:00 EDT, Height, kg, 09/29/20 9:36:00 EDT, Dosing Weight Start Date: 09/29/20 Status: Ordered omeprazole 20 mg delayed release oral capsule (20 sources) Proton Pump Inhibitor Start: 11-29-2024 omeprazo le 20 mg oral delayed release capsule Dose : 20 mg = 1 cap(s), Oral, qDay, Take daily before breakfast, # 90 cap(s), 3 Refill(s) Start Date: 11/29/24 Status: Ordered Quantity: 90.0 Unit: cap(s) Repeat number: 4 Start: 11-29-2023 End: 05-27-2024 omeprazole 20 mg oral delaye d release capsule Dose : 20 mg = 1 cap(s), Oral, qDay, Take daily before breakfast, # 90 cap(s), 1 Refill(s) Start Date: 11/29/23 Stop Date: 05/27/24 Status: Ordered Quantity: 90.0 Unit: cap(s) Repeat number: 2 Start: 11-13-2022 PriLOSEC OTC 2 0 mg oral delayed release tablet Dose : 20 mg = 1 tab(s), Oral, qDayAC, # 90 tab(s), 3 Refill(s), Pharmacy: [facility], 170.2, cm, 11/13/22 10:03:00 EDT, Height, kg, 11/13/22 10:03:00 EDT, Dosing Weight Start Date: 11/13/22 Status: Ordered Start: 03-13-2022 PriLOSEC OTC 2 0 mg oral delayed release tablet Dose : 20 mg = 1 tab(s), Oral, qDayAC, # 90 tab(s), 3 Refill(s), Pharmacy: [facility], 170.2, cm, 03/13/22 12:19:00 EDT, Height, kg, 03/13/22 12:19:00 EDT, Dosing Weight Start Date: 03/13/22 Status: Ordered Start: 04-04-2021 PriLOSEC OTC 2 0 mg oral delayed release tablet Dose : 20 mg = 1 tab(s), Oral, qDayAC, # 90 tab(s), 3 Refill(s), Pharmacy: [facility], 170.2, cm, 04/04/21 10:01:00 EDT, Height, kg, 04/04/21 10:01:00 EDT, Dosing Weight Start Date: 04/04/21 Status: Ordered Start: 02-22-2021 PriLOSEC OTC 2 0 mg oral delayed release tablet Dose : 20 mg = 1 tab(s), Oral, qDayAC, # 30 tab(s), 3 Refill(s), Pharmacy: [facility], 170.2, cm, 02/19/21 9:55:00 EDT, Height, kg, 02/22/21 8:14:00 EDT, Dosing Weight Start Date: 02/22/21 Status: Ordered ondansetron 4 mg oral tablet (20 sources) Serotonin-3 Receptor Antagonist Start: 09-29-2020 Zofran 4 mg oral tablet Dose : 4 mg = 1 tab(s), Oral, q6h, Take as needed for nausea, # 30 tab(s), 2 Refill(s), Pharmacy: [facility], 171, cm, 09/29/20 9:36:00 EDT, Height, kg, 09/29/20 9:36:00 EDT, Dosing Weight Start Date: 09/29/20 Status: Ordered pantoprazole 40 mg delayed release oral tablet (10 sources) Proton Pump Inhibitor Start: 07-07-2024 take 1 tablet by mouth once daily Pantoprazole (Protonix) 40 mg tablet,delayed release (DR/EC) Active 40 mg PO daily July 07, 2024 1:00am Complies with drug therapy polyethylene glycol 3350 50695 mg powder for oral solution (20 sources) Osmotic Laxative Start: 01-25-2021 take 17 doses by mouth once daily MiraLax oral powder for reconstitution Dose : 17 gram(s) =, Oral, Daily, # 238 gram(s), 0 Refill(s) Start Date: 01/25/21 Status: Ordered Vitamin D3 50 mcg (2000 intl units) oral capsule (11 sources) Start: 02-19-2021 Vitamin D3 50 mcg (2000 intl units) oral capsule Dose : 50 mcg = 1 cap(s), Oral, qDay, # 60 cap(s), 0 Refill(s) Start Date: 02/19/21 Status: Ordered Quantity: 60.0 Unit: cap(s) Repeat number: 1 Start: 02-19-2021 Vitamin D3 50 mcg (2000 intl units) oral capsule Dose : 50 mcg = 1 cap(s), Oral, qDay, # 60 cap(s), 0 Refill(s) Start Date: 02/19/21 Status: Ordered Completed/Discontinued Medications Medication Drug Class(es) Dates Sig (Normalized) Sig (Original) Prevpac Miscellaneous (20 sources) Penicillin-class Antibacterial Start: 09-09-2016 End: 02-27-2017 Start: 09-09-2016 End: 02-27-2017 Prevpac Miscellaneous 1 (one ) Misc tad for 0 days Quantity: 1 {Packet} Refills: 0 Ordered: 27-Feb-2017 Luis Payne RN Start : 09-Sep-2016 End : 27-Feb-2017 Inactive Start: 09-09-2016 End: 02-27-2017 Prevpac Miscellaneous 1 (one ) Misc tad for 0 days Quantity: 1 {Packet} Refills: 0 Ordered: 27-Feb-2017 Luis Payne LPN Start : 09-Sep-2016 End : 27-Feb-2017 Inactive azithromycin 250 mg oral tablet (10 sources) Macrolide Antimicrobial Start: 03-25-2024 End: 07-07-2024 take 2-5 tablets by mouth once daily Azithromycin 250 mg tablet Discontinued 0 PO .COMPLEX 6 0 March 25, 2024 12:00am July 07, 2024 9:51am take 500 mg today (day 1), then 250 mg for 4 days (days 2-5) PO benzonatate 100 mg oral capsule (20 sources) Non-narcotic Antitussive Start: 03-25-2024 End: 07-07-2024 take 2 capsules by mouth three times daily as needed for cough Benzonatate 100 mg capsule Discontinued 200 mg PO THREE TIMES A DAY as needed for cough 30 March 25, 2024 12:00am July 07, 2024 9:53am Start: 08-19-2022 End: 07-28-2023 take 1 capsule by mouth three times daily as needed for cough Benzonatate 200 mg capsule Discontinued 200 mg PO THREE TIMES A DAY as needed for cough 20 August 19, 2022 12:00am July 28, 2023 2:44pm take 2 capsules by mouth once Te ssalon Perles 100 mg oral capsule 200mg Once at night before bed. (100 mg) Active Comments: Dr. Sandoval Comment on above: Dr. Sandoval calcium (20 sources) Phosphate Binder, Calcium End: 02-08-2021 End: 02-08-2021 take 9 capsules by mouth once CALCIUM, 600MG (PO Cap) for 0 days Refills: 0 Ordered: 08-Feb-2021 Gravius Hattie OCAMPO End : 08-Feb-2021 Discontinued Comments: This order discontinued per [facility]. CALCIUM, 600MG ( PO Cap) for 0 days Refills: 0 Ordered: 24-Aug-2008 Mast Alexus PUCKETT Active Comment on above: This order discontin ued per -[facility]. cholecalciferol 0.025 mg maki wable tablet (20 sources) Vitamin D take 2 capsules by mouth once da magui Vitamin D3 25 MCG (1000 UT) Oral Capsule 2 daily (25 MCG (1000 UT)) Inactive Vitamin D3 25 MC G (1000 UT) Oral Tablet Chewable (25 MCG (1000 UT)) Active Comments: 2000 uii daily Comment on above: 2000 uii daily ciprofloxacin 500 mg oral tablet (20 sources) Quinolone Antimicrobial Start: 01-12-2020 End: 01-22-2020 cyclobenzaprine hydrochloride 5 mg oral tablet (20 sources) Muscle Relaxant Start: 02-23-2019 End: 09-17-2019 dexlansoprazole 60 mg delayed release oral capsule (20 sources) Proton Pump Inhibitor Start: 04-23-2016 End: 02-27-2017 Flonase 50 MCG/DOSE Nasal Inhaler (9 sources) Flonase 50 MCG/D OSE Nasal Inhaler (50 MCG/DOSE) Inactive Flonase 50 MCG/D OSE Nasal Inhaler (50 MCG/DOSE) Active 2 ml sodium hyaluronate 10 mg/ml prefilled syringe (20 sources) Start: 12-30-2018 End: 12-30-2018 Euflexxa (sodium hyaluronate (viscosup)) Discontinued 20 MG INTRAARTIC ONCE 2 December 30, 2018 9:56am December 30, 2018 10:10am Start: 12-11-2018 End: 12-11-2018 Euflexxa (sodium hyaluronate (viscosup)) Discontinued 10 MG INTRAARTIC ONCE December 11, 2018 10:49am December 11, 2018 11:08am Start: 11-19-2018 End: 01-25-2019 Sodium Hyaluronate (Viscosup ) (Euflexxa) 10 mg/mL(mw 2.4 -3.6 million) syringe Discontinued 25 mg INTRAARTIC EVERY WEEK 6 0 November 19, 2018 12:00am January 25, 2019 12:20pm ibuprofen 100 mg chewable tablet (20 sources) Nonsteroidal Anti-inflammatory Drug End: 06-23-2019 End: 06-23-2019 MOTRIN, 100MG (Oral Tablet C hewable) Occasionally for 0 days Refills: 0 Ordered: 23-Jun-2019 Sophia Bearden LPN End : 23-Jun-2019 Discontinued Comments: This order discontinued per [facility]. MOTRIN, 100MG (O ral Tablet Chewable) Occasionally for 0 days Refills: 0 Ordered: 24-Aug-2008 Alexus Valencia RN Active Comment on above: This order discontin ued per [facility]. meloxicam 7.5 mg oral tablet (20 sources) Nonsteroidal Anti-inflammatory Drug Start: 03-17-2023 End: 10-08-2018 Start: 03-17-2023 End: 10-08-2018 Start: 03-17-2023 End: 10-08-2018 Start: 02-23-2019 End: 03-26-2023 take 1 tablet by mouth once daily Meloxicam 7.5 MG tablet Active 7.5 mg PO DAILY February 25, 2019 12:00am pain Complies with drug therapy Start: 10-14-2018 End: 01-25-2019 take 1 tablet by mouth once daily Meloxicam (Mobic) 7.5 mg tablet Discontinued 7.5 mg PO DAILY 30 October 14, 2018 12:00am January 25, 2019 12:20pm do not take with other NSAIDs Start: 09-24-2018 End: 10-08-2018 take 1 tablet by mouth once daily Meloxicam 7.5 MG Oral Tablet 1 (one) Tablet PO QD for 14 days Quantity: 14 {Tablet} Refills: 0 Ordered: 24-Sep-2018 Charo Swenson DO, DO, Kathleen Start : 24-Sep-2018 End : 08-Oct-2018 Inactive Start: 08-24-2018 take 1 tablet by kadeem th once daily Meloxicam 7.5 MG Oral Tablet 1 (one) Tablet PO QD for 14 days Quantity: 14 {Tablet} Refills: 0 Ordered: 24-Aug-2018 Charo Swenson DO, DO, Kathleen Start : 24-Aug-2018 Active Start: 04-16-2018 End: 04-30-2018 take 1 tablet by mouth once daily Meloxicam 7.5 MG Oral Tablet 1 (one) Tablet Tablet PO QD for 14 days Quantity: 14 {Tablet} Refills: 0 Ordered: 16-Apr-2018 Luis Payne LPN Start : 16-Apr-2018 End : 30-Apr-2018 Inactive Comment on above: use prn in future with food use prn in future metaxalone 800 mg oral table t (20 sources) Start: 09-11-2020 End: 07-12-2022 Start: 09-11-2020 End: 07-12-2022 Skelaxin 800 mg oral tablet 1 (one) Tablet every 8 hoours prn for 0 days Quantity: 24 {Tablet} Refills: 0 Ordered: 12-Jul-2022 Kimberley Cardona CNP Start : 11-Sep-2020 End : 12-Jul-2022 Discontinued Comments: Discontinued by Medication vendor. Start: 09-17-2019 End: 02-23-2020 take 1 tablet by mouth once as needed, then take 8 tablets by mouth as needed Skelaxin 800 MG Oral Tablet 1 (one) Tablet every 8 hoours prn for 0 days Quantity: 20 {Tablet} Refills: 0 Ordered: 23-Feb-2020 Marnie Alonso LPN Start : 17-Sep-2019 End : 23-Feb-2020 Inactive Comment on above: Discontinued by [facility] vendor. methylPREDNISolone 4 mg oral tablet (20 sources) Corticosteroid Start: 2023 End: 2023 take 1 tablet by mouth once Methylprednisolone (Medrol (Tori)) 4 mg tablets,dose pack Discontinued 4 mg PO per package directions 21 6 0 March 25, 2024 12:00am March 30, 2024 12:00am March 31, 2024 12:08am Start: 09-17-2019 End: 02-23-2020 Start: 04-28-2018 End: 01-29-2019 Medrol 4 MG Oral Tablet Ther apy Pack 1 (one) Milligram Milligram TAD for 0 days Quantity: 1 {Package} Refills: 0 Ordered: 29-Jan-2019 Luis Payne LPN Start : 28-Apr-2018 End : 29-Jan-2019 Inactive Start: 04-16-2018 Medrol 4 MG Or al Tablet Therapy Pack 1 (one) Milligram TAD for 0 days Quantity: 1 {Package} Refills: 0 Ordered: 16-Apr-2018 Luis Huffman Start : 16-Apr-2018 Active mometasone furoate 0.05 mg/a ctuat metered dose nasal spray (20 sources) Corticosteroid Start: 06-23-2019 End: 02-08-2021 Start: 06-23-2019 End: 02-08-2021 take 2 spray(s) nasal route once daily Nasonex 50 MCG/ACT Nasal Suspension 2 (two) spray(s) each nostril daily for 0 days Quantity: 3 {Box} Refills: 3 Ordered: 08-Feb-2021 Hattie Younger CMA Start : 23-Jun-2019 End : 08-Feb-2021 Inactive Start: 02-25-2019 take 2 spray(s) nasa l route once daily Nasonex 50 MCG/ACT Nasal Suspension 2 (two) spray(s) each nostril daily for 0 days Quantity: 3 {Box} Refills: 3 Ordered: 25-Feb-2019 Charo Swenson DO, DO, Kathleen Start : 25-Feb-2019 Active Start: 12-02-2013 End: 01-29-2019 take 2 spray(s) nasal route once daily Nasonex 50 MCG/ACT Nasal Suspension 2 (two) spray(s) each nostril daily for 0 days Quantity: 3 {Box} Refills: 3 Ordered: 29-Jan-2019 Luis Payne LPN Start : 02-Dec-2013 End : 29-Jan-2019 Inactive nitrofurantoin, macrocrystals 25 mg / nitrofurantoin, monohydrate 75 mg oral capsule (7 sources) Nitrofuran Antibacterial Start: 10-30-2024 End: 11-04-2024 take 1 capsule by mouth every twelve hours at mealtime Nitrofurantoin Monohyd/M-Cryst (Macrobid) 100 mg capsule Discontinued 100 mg PO Q12H 10 5 0 October 30, 2024 12:00am November 03, 2024 12:00am November 04, 2024 12:08am must administer with a meal/food NORETHINDRONE, 0.35MG (PO Tab) (20 sources) End: 01-22-2010 End: 01-22-2010 NORETHINDRONE, 0.35MG (PO Ta b) 5mg. 5 days only, 08/12-17/02 for 0 days Refills: 0 Ordered: 22-Jan-2010 Luis Payne RN End : 22-Jan-2010 Discontinued Comments: This order discontinued per [facility]. Comment on above: This order discontin ued per [facility]. predniSONE 10 mg oral tablet (20 sources) Start: 03-26-2023 Start: 09-18-2022 End: 03-26-2023 Start: 08-21-2022 End: 08-26-2022 predniSONE 20 mg oral tablet 1 (one) Tablet bid for 1days then one tab qd for 2days for 0 days Quantity: 4 {Tablet} Refills: 0 Ordered: 26-Aug-2022 Leti OCAMPO Devanumu Start : 21-Aug-2022 End : 26-Aug-2022 Inactive Start: 07-12-2022 End: 08-21-2022 Start: 03-18-2019 End: 12-18-2021 take 3 tablets by mouth once daily, then take 2 tablets by mouth once daily, then take 1 tablet by mouth once daily Prednisone 20 mg tablet Discontinued 20 mg PO DAILY 18 March 18, 2019 12:00am December 18, 2021 11:26am 3 tablets daily for 3 days, then 2 tablets daily for 3 days, then 1 tablet daily for 3 days Start: 02-23-2019 End: 12-18-2021 Prednisone 10 MG tablet Disc ontinued 0 mg PO DIRECTED Taper: Frequency: DAILY@0800 Days: 1 Hours: 0 Dose: 30 Frequency: DAILY@0800 Days: 3 Hours: 0 Dose: 20 Frequency: DAILY@0800 Days: 3 Hours: 0 Dose: February 25, 2019 12:00am December 18, 2021 11:26am Please contact the information source for Taper Schedule details. Start: 06-18-2018 End: 01-29-2019 predniSONE 20 MG Oral Tablet 1 (one) Tablet Tablet bid for 2days then qd for 2days for 0 days Quantity: 6 {Tablet} Refills: 0 Ordered: 29-Jan-2019 Luis Payne RN Start : 18-Jun-2018 End : 29-Jan-2019 Inactive Comment on above: with food rizatriptan 5 mg oral tablet (20 sources) Serotonin-1b and Serotonin-1d Receptor Agonist Start: 09-23-2012 End: 12-02-2013 rosuvastatin calcium 5 mg or al tablet (20 sources) HMG-CoA Reductase Inhibitor Start: 03-09-2019 End: 06-23-2019 Start: 02-26-2019 End: 12-18-2021 take 1 tablet by mouth at bedtime Rosuvastatin 10 MG tablet Discontinued 10 mg PO AT BEDTIME 30 February 26, 2019 12:00am December 18, 2021 11:26am sulfamethoxazole 800 mg / trimethoprim 160 mg oral tablet (10 sources) Dihydrofolate Reductase Inhibitor Antibacterial, Sulfonamide Antimicrobial Start: 01-12-2024 End: 03-25-2024 Sulfamethoxazole-Trimethopri m 800-160 mg tablet Discontinued 1 {tbl} PO TWICE A DAY 20 January 12, 2024 12:00am March 25, 2024 7:56am 24 hr tolterodine tartrate 4 mg extended release oral capsule (20 sources) Cholinergic Muscarinic Antagonist Start: 02-25-2023 Start: 02-28-2022 take 1 capsule by [facility] once daily Detrol LA 4 MG Oral Capsule Extended Release 24 Hour 1 (one) Capsule ER 24HR qd for 0 days Quantity: 90 {Capsule} Refills: 3 Ordered: 28-Feb-2022 Brice Laguerre LPN Start : 28-Feb-2022 Active Start: 02-08-2021 take 1 capsule by mo uth once daily Detrol LA 4 MG Oral Capsule Extended Release 24 Hour 1 (one) Capsule ER 24HR qd for 0 days Quantity: 90 {Capsule} Refills: 3 Ordered: 08-Feb-2021 Charo Swenson DO Leela DO, Charo Start : 08-Feb-2021 Active Start: 09-01-2020 take 2 capsules by m out once daily in the morning Detrol LA 2 mg oral capsule, extended release 2 cap, Oral, qAM, # 30 cap(s), 0 Refill(s) Start Date: 09/01/20 Status: Ordered Quantity: 30.0 Unit: cap(s) Repeat number: 1 Start: 05-01-2015 take 1 capsule by mo uth every twenty-four hours as needed, then take 1 capsule by mouth every twenty-four hours as needed Detrol LA 4 MG Oral Capsule Extended Release 24 Hour 1 (one) Capsule ER 24HR Capsule ER 24HR prn for 0 days Quantity: 90 {Capsule} Refills: 3 Ordered: 01-May-2015 Charo Swenson DO, DO Charo Start : 01-May-2015 Active Tumeric (20 sources) Tumeric Inactive Tumeric Active vitamin b6 50 mg oral tablet (20 sources) Start: 01-25-2021 End: 03-26-2021 Vitamin B6 50 mg oral tablet Dose : 50 mg = 1 tab(s), Oral, BID, # 14 tab(s), 0 Refill(s) Start Date: 01/25/21 Stop Date: 03/26/21 Status: Ordered Problems Active Problems Problem Classification Problem Date Documented Date Episodic/Chronic Abdominal pain (20 sources) Left upper quadrant pain; Translations: [Acute abdominal pain] Resolved: 7 02-26-2018 Episodic Comment on above: assumed gb disease b asedon h/o and us 5 yrs ago - getting up dated us stat Acute bronchitis (20 sources) Acute bronchitis; Translations: [Acute bronchitis, unspecified] 08-19-2022 Episodic Administrative/social admission (20 sources) Medical examinations/reports status; Translations: [Counseling procedure with explicit context] 04-16-2018 Episodic Anxiety disorders (20 sources) Acute stress disorder; Translations: [Stress reaction] 09-28-2021 Chronic Blindness and vision defects (10 sources) Wears glasses 04-04-2021 Episodic Cancer of uterus (20 sources) FIGO EC stage IV; Translations: [Endometrial carcinoma] Onset: 5 04-04-2021 Chronic Comment on above: total hysterectomy total hysterectomy- 03/22 done with chemo and plan is to fu close survellance q3mo wiht oncology form in 1yr Contraceptive and procreative management (20 sources) Contraception ; Translations: [Family planning advice] 09-11-2020 Episodic Diabetes mellitus without complication (20 sources) Hyperglycemia; Translations: [Hyperglycemia] 02-27-2017 Episodic Disorders of lipid metabolism (20 sources) Hypercholesterolemia; Translations: [Hypercholesteremia] 09-17-2019 Chronic E Codes: Fall (20 sources) Fall in home; Translations: [Fall at home] 09-11-2020 Episodic Comment on above: leg just gave out Esophageal disorders (10 sources) Gastroesophageal reflux disease 04-04-2021 Chronic Essential hypertension (20 sources) Benign essential hypertension; Translations: [Benign essential hypertension] Onset: 4 Resolved: 8 02-26-2018 Chronic Comment on above: prob related to stre ss and wt gain ? will adj meds now and follwo Genitourinary symptoms and ill-defined conditions (20 sources) Female stress incontinence; Translations: [Stress incontinence, female] 04-16-2018 Chronic Headache, including migraine (20 sources) Headache; Translations: [Headache] Resolved: 2 04-16-2018 Episodic Comment on above: allergy related ?allan peter-- new onset but mri brain done last yr bc of [place] Immunizations and screening for infectious disease (20 sources) Contact with and (suspected) exposure to other viral communicable diseases; Translations: [Contact with or suspected exposure to other viral communicable disease] 08-19-2022 Episodic Inflammatory diseases of female pelvic organs (2 sources) Abscess of vulva; Translations: [Abscess of vulva] Onset: 5 Episodic Malaise and fatigue (20 sources) Fatigue; Translations: [Fatigue] Resolved: 9 09-23-2012 Episodic Menopausal disorders (20 sources) Menopausal syndrome; Translations: [Menopausal state] 04-16-2018 Chronic Nausea and vomiting (20 sources) Nausea; Translations: [Nausea] Resolved: 6 09-06-2016 Episodic Neoplasms of unspecified nature or uncertain behavior (20 sources) Neoplasm of uncertain behavior of skin; Translations: [Neoplasm of uncertain behavior of skin] 04-16-2018 Episodic Nonmalignant breast conditions (10 sources) Abscess of breast; Translations: [Abscess of the breast and nipple] 01-20-2024 Episodic Nonspecific chest pain (20 sources) Atypical chest pain; Translations: [Chest pain, atypical] 09-17-2019 Episodic Comment on above: resolved, may be rel ated to prednisone Nutritional deficiencies (4 sources) Vitamin D deficiency; Translations: [Vitamin D deficiency] 03-26-2023 Chronic Open wounds of extremities (20 sources) Laceration of finger without foreign body; Translations: [Laceration without foreign body of unspecified finger without damage to nail, initial encounter] 07-18-2022 Episodic Osteoarthritis (20 sources) Unilateral primary osteoarthritis, left knee; Translations: [Osteoarthritis of left knee joint] Onset: 5 06-18-2018 Chronic Comment on above: just had euflexa fro m ortho -- using nsaid rec to stop Other and unspecified benign neoplasm (20 sources) Polyp of colon; Translations: [Colon polyps] 02-28-2022 Episodic Other bone disease and musculoskeletal deformities (20 sources) Segmental and somatic dysfunction; Translations: [Segmental and somatic dysfunction of cervical region] 02-26-2019 Episodic Other bone disease and musculoskeletal deformities (20 sources) Segmental and somatic dysfunction of lumbar region; Translations: [Nonallopathic lesions, lumbar region] Onset: 5 Episodic Other bone disease and musculoskeletal deformities (20 sources) Segmental and somatic dysfunction of pelvic region; Translations: [Nonallopathic lesions, pelvic region] Onset: 5 Episodic Other bone disease and musculoskeletal deformities (20 sources) Segmental and somatic dysfunction of cervical region; Translations: [Nonallopathic lesions, cervical region] Onset: 5 Episodic Other bone disease and musculoskeletal deformities (20 sources) Segmental and somatic dysfunction of thoracic region; Translations: [Nonallopathic lesions, thoracic region] Onset: 5 07-16-2022 Episodic Other circulatory disease (20 sources) Elevated blood pressure; Translations: [Elevated blood pressure reading] Resolved: 2 04-16-2018 Episodic Comment on above: Slight increase-due to pain? Other circulatory disease (20 sources) Abnormal chest sounds; Translations: [Abnormal lung sounds] 08-21-2022 Episodic Other connective tissue disease (20 sources) Spasm; Translations: [Muscle spasm] Resolved: 9 09-23-2012 Episodic Comment on above: massage rx given rev ergonomic positions rx massage therapy Other connective tissue disease (20 sources) Pain of left hand; Translations: [Hand pain, left] 09-11-2020 Episodic Other connective tissue disease (20 sources) Impingement syndrome of shoulder region; Translations: [Impingement syndrome of unspecified shoulder] 06-09-2019 Episodic Other connective tissue disease (20 sources) Trigger thumb of left hand; Translations: [Trigger thumb, left thumb] Resolved: 2 09-28-2021 Episodic Other connective tissue disease (4 sources) Pain of bilateral hands; Translations: [Pain in both hands] 03-26-2023 Episodic Other diseases of bladder and urethra (11 sources) Overactive bladder 09-29-2020 Chronic Other eye disorders (20 sources) Vitreous floaters; Translations: [Visual floaters, unspecified laterality] 04-16-2018 Chronic Other gastrointestinal disorders (20 sources) Diarrhea; Translations: [Diarrhea, unspecified type] Resolved: 6 09-06-2016 Episodic Comment on above: post choley but if e at clean not a problem Other hematologic conditions (20 sources) Decreased lipoprotein; Translations: [Low serum HDL] 04-16-2018 Episodic Comment on above: increase exercise Other injuries and conditions due to external causes (20 sources) Wound hemorrhage; Translations: [Other injury of unspecified body region, initial encounter] 07-18-2022 Episodic Other liver diseases (20 sources) Fatty liver; Translations: [Steatosis of liver] 04-16-2018 Chronic Other lower respiratory disease (4 sources) Multiple nodules of lung 09-29-2020 Episodic Other lower respiratory disease (11 sources) Snoring 09-19-2020 Episodic Other lower respiratory disease (20 sources) Cough; Translations: [Acute cough] 08-21-2022 Episodic Other nervous system disorders (9 sources) Neuropathy 05-14-2021 Chronic Other nervous system disorders (20 sources) Paresthesia; Translations: [Paresthesia] Resolved: 7 02-26-2018 Episodic Comment on above: left side of face Other non-traumatic joint disorders (20 sources) Knee pain; Translations: [Acute pain of left knee] 06-18-2018 Episodic Other non-traumatic joint disorders (20 sources) Hip pain; Translations: [Left hip pain] 09-11-2020 Episodic Other non-traumatic joint disorders (20 sources) Pain in left knee; Translations: [Acute pain of left knee] 02-08-2021 Episodic Other non-traumatic joint disorders (4 sources) Joint pain; Translations: [Joint pain following chemotherapy] 03-26-2023 Episodic Other nutritional; endocrine; and metabolic disorders (20 sources) Body mass index 30+ - obesity; Translations: [BMI 34.0-34.9,adult] Resolved: 2 04-16-2018 Chronic Comment on above: Based on weight repo rted by pt due to COVID-19 pandemic Other nutritional; endocrine; and metabolic disorders (20 sources) Obesity; Translations: [Obesity] 04-16-2018 Chronic Other nutritional; endocrine; and metabolic disorders (10 sources) Obese class II; Translations: [Class 2 obesity] 11-04-2024 Chronic Other skin disorders (20 sources) Disorder of the skin and subcutaneous tissue, unspecified; Translations: [Lesion of skin of face] Resolved: 7 02-26-2018 Episodic Other upper respiratory disease (20 sources) Allergic rhinitis; Translations: [Allergic Rhinitis] 04-16-2018 Chronic Other upper respiratory disease (20 sources) Nasal congestion; Translations: [Nasal congestion] 08-21-2022 Episodic Residual codes; unclassified (20 sources) History of appendectomy; Translations: [Appendectomy] 06-18-2018 Episodic Comment on above: 1994 Residual codes; unclassified (20 sources) Postmenopausal state; Translations: [Postmenopausal (Renamed from Postmenopausal status)] 02-25-2019 Episodic Residual codes; unclassified (20 sources) Non-smoker; Translations: [Nonsmoker] 04-16-2018 Episodic Residual codes; unclassified (10 sources) H/O: chemotherapy 04-04-2021 Episodic Residual codes; unclassified (9 sources) Difficulty sleeping 05-14-2021 Episodic Secondary malignancies (20 sources) Secondary malignant neoplasm of lung; Translations: [Lung metastases] 02-08-2021 Chronic Comment on above: doing chemo started 10/05/2020 will continue into jan 2021 6 total treatments Spondylosis; intervertebral disc disorders; other back problems (20 sources) Lumbar discogenic pain; Translations: [Disorder of lumbar disc] Onset: 5 04-04-2021 Chronic Spondylosis; intervertebral disc disorders; other back problems (20 sources) Backache; Translations: [Lumbar radiculopathy] Onset: 5 Resolved: 9 04-16-2018 Episodic Comment on above: physical therspy - r x prd and chiro care - Dr Charles with sciatica came f rom chiropracters office stable on mobic and Pt will consider pain management if neededphysical therspy - rx prd and chiro care - Dr Charles physical therspy - r x prn massaotherapy and chiro care - Dr Charles pred taperlumbar xra ys if no improvement, she states she had them before.-toradol injection today-muscle relaxerhold any other NSAIDs while on prednisone. Syncope (20 sources) Syncope; Translations: [Syncope and collapse] 01-17-2021 Episodic Unclassified (20 sources) H/O: surgery; Translations: [History of appendectomy] 04-16-2018 Episodic Comment on above: 1988 1993 Unclassified (20 sources) Unclassified (20 sources) Patient encounter status; Translations: [Physical exam] 09-06-2016 Comment on above: last scope 2017- do in 10 yr Unclassified (20 sources) BMI 35.0-35.9,adult Unclassified (20 sources) Non-smoker; Translations: [Non-smoker] 04-16-2018 Unclassified (20 sources) Back pain, lumbosacral Unclassified (20 sources) Elevated blood pressure reading Unclassified (20 sources) Stress Incontinence, Female (625.6) Unclassified (20 sources) Nutritional counseling Unclassified (20 sources) Abdominal Pain,RUQ(789.01) Unclassified (20 sources) Lesion-Unknown behavior (238.2) Unclassified (20 sources) OBESITY NOS (278.00) Unclassified (20 sources) BMI 36.0-36.9,adult Unclassified (20 sources) Chronic pain of left knee Unclassified (20 sources) Primary osteoarthritis of left knee Unclassified (20 sources) Hypercholesteremia Unclassified (20 sources) Muscle spasm Unclassified (5 sources) BMI 33.0-33.9,adult Unclassified (9 sources) Lung metastases Unclassified (3 sources) Stress reaction Unclassified (3 sources) Trigger thumb, left thumb Unclassified (10 sources) Osteoarthritis of both knees; Translations: [M17.0 - Bilateral primary osteoarthritis of knee] Unclassified (1 source) Cough, unspecified; Translations: [Cough, unspecified] Onset: 4 Urinary tract infections (20 sources) Urinary tract infectious disease; Translations: [UTI (urinary tract infection)] 01-12-2020 Episodic Viral infection (20 sources) Disease caused by 2019-nCoV; Translations: [COVID] 11-07-2021 Episodic Past or Other Problems Problem Classification Problem Date Documented Date Episodic/Chronic External cause codes: Fall (13 sources) Fall in home; Translations: [Fall at home] 02-25-2019 Comment on above: leg just gave out Genitourinary symptoms and ill-defined conditions (20 sources) Microscopic hematuria; Translations: [Blood in urine] Onset: 10-30-2024 Resolved: 02-27-2017 04-16-2018 Episodic Osteoarthritis (18 sources) Osteoarthritis of left knee joint; Translations: [Primary osteoarthritis of left knee] 10-05-2018 Comment on above: just had euflexa fro m ortho -- using nsaid rec to stop Other aftercare (1 source) Encounter for adjustment and management of vascular access device; Translations: [Encounter for adjustment and management of vascular access device] Onset: 08-19-2024 Episodic Other connective tissue disease (13 sources) Pain of left hand; Translations: [Hand pain, left] 02-25-2019 Other non-traumatic joint disorders (1 source) Pain in unspecified knee; Translations: [Pain in unspecified knee] Onset: 07-08-2024 Episodic Other upper respiratory infections (20 sources) Chronic sinusitis; Translations: [Sinusitis, chronic] Resolved: 10-11-2008 03-07-2015 Chronic Spondylosis; intervertebral disc disorders; other back problems (20 sources) Spondylosis; intervertebral disc disorders; other back problems Sprains and strains (20 sources) Low back strain; Translations: [Strain of muscle, fascia and tendon of lower back, initial encounter] Onset: 08-17-2024 03-18-2019 Episodic Unclassified (20 sources) Blood chemistry abnormal; Translations: [Breast neoplasm screening status] Onset: 06-11-2024 Resolved: 02-27-2017 02-26-2018 Episodic Comment on above: last scope 2017- do in 10 yr Unclassified (20 sources) Nonsmoker; Translations: [Non-smoker] 04-16-2018 Unclassified (20 sources) Encounter for well adult exam with abnormal findings; Translations: [Patient encounter status] 02-27-2017 Unclassified (20 sources) Abortions/Miscarriage s; Translations: [Abortions/Miscarriag es] 04-16-2018 Comment on above: 1 Unclassified (20 sources) Screening status; Translations: [Encounter for screening for malignant neoplasm of colon (Renamed from Special screening for malignant neoplasms, colon)] 04-16-2018 Unclassified (20 sources) Visual floaters, unspecified laterality Unclassified (20 sources) Continuous RUQ abdominal pain Unclassified (20 sources) BMI 38.0-38.9,adult Unclassified (20 sources) Acute epigastric pain Unclassified (20 sources) Abdominal pain, acute, left upper quadrant (Renamed from Acute abdominal pain in left upper quadrant) Unclassified (5 sources) Patient examined; Translations: [Physical exam for work/school/camp (Renamed from Encounter for school health examination)] 04-16-2018 Unclassified (20 sources) Skin lesion of face Unclassified (20 sources) Diarrhea, unspecified type Unclassified (20 sources) Encounter for screening mammogram for breast cancer (Renamed from Encounter for screening mammogram for malignant neoplasm of breast) Unclassified (20 sources) Menopausal state Unclassified (20 sources) Body mass index 37.0-37.9, adult Unclassified (20 sources) Annual physical exam (V70.0) Unclassified (20 sources) Annual visit for general adult medical examination with abnormal findings Unclassified (20 sources) Hematuria, microscopic Unclassified (20 sources) Low serum HDL Unclassified (20 sources) Pregnancies (); Translations: [Pregnancies ()] 04-16-2018 Comment on above: 4 Unclassified (20 sources) Muscle spasm (728.85) Unclassified (20 sources) Physical exam for work/school/camp (Renamed from Encounter for school health examination) Unclassified (20 sources) Non-smoker; Translations: [Nonsmoker] 04-16-2018 Unclassified (20 sources) Encounter for screening for malignant neoplasm of colon (Renamed from Special screening for malignant neoplasms, colon) Unclassified (20 sources) Physical exam Unclassified (20 sources) Acute pain of left knee Unclassified (20 sources) Breast cancer screening Unclassified (20 sources) Postmenopausal (Renamed from Postmenopausal status) Unclassified (20 sources) Fall at home Unclassified (20 sources) Hand pain, left Unclassified (20 sources) Chest pain, atypical Unclassified (20 sources) BMI 34.0-34.9,adult Unclassified (18 sources) Colon cancer screening (Renamed from Screening for colon cancer) Unclassified (18 sources) Family planning advice Unclassified (20 sources) Dilation and curettage of uterus; Translations: [Dilation And Curettage Of Uterus] 09-11-2020 Comment on above: 1989 Unclassified (20 sources) Abortions/Miscarriage s; Translations: [Abortions/Miscarriag es] 09-11-2020 Comment on above: 1 Unclassified (20 sources) Pregnancies (); Translations: [Pregnancies ()] 09-11-2020 Comment on above: 4 Unclassified (4 sources) Uterine cancer Viral infection (3 sources) Disease caused by 2019-nCoV Results Test Name Value Interpretation Reference Range Facility Orthopedic Visit Reporton Orthopedic Visit Report [facility] [address] [place] [address] OFFICE VISIT Date of Service: 02/24/25 MR#: [id number] Acct: [id number] Name: WEST POSADAS Rep #: [id number] : 1960 Provider: ROMEO page Age/Sex: 64/F [place] [facility] [place] Status: Signed Intake Vital Signs 12/06/24 14:58 02/08/25 09:36 02/08/25 10:32 02/24/25 08:38 Height 5 ft 7 in 5 ft 7 in 5 ft 7 in 5 ft 7 in Weight: 212 lb 2 oz BMI 33.2 Intake Visit Reasons: BL KNEES Allergies midazolam (From Versed) Allergy (Verified 02/24/25 08:39) hypotensive codeine Adverse Reaction (Verified 02/24/25 08:39) Vomiting erythromycin base Adverse Reaction (Verified 02/24/25 08:39) Vomiting Medications ???Medication ???Instructions ???Recorded ???Confirmed ???Type hydrochlorothiazide 25 mg tablet 25 mg PO DAILY 02/25/19 02/24/25 H istory meloxicam 7.5 mg tablet 7.5 mg PO DAILY pain 02/25/19/10/24 History multivitamin 1 ea PO DAILY 02/25/19 02/24/25 Hi story diltiazem HCl 240 mg 240 mg PO DAILY 12/18/21 02/24/25 History capsule,extended release 24 hr gabapentin 300 mg capsule 300 mg PO QHS 12/18/21 02/24/25 Hi story loratadine 10 mg tablet (Claritin) 10 mg PO DAILY 12/18/21 02/24/25 History melatonin 10 mg capsule 10 mg PO HS PRN 12/18/21 02/24/25 History albuterol sulfate 90 mcg/actuation 2 puff inhalation Q6H PRN 02/24/25 Rx aerosol inhaler shortness of breath or wheezing #8.5 grams magnesium 200 mg tablet 200 mg PO QDAY 07/07/24 02/24/25 H istory pantoprazole 40 mg tablet,delayed 40 mg PO QDAY 07/07/24 02/24/25 H istory release (Protonix) phentermine 37.5 mg capsule 37.5 mg PO QDAY 02/24/25 02/24/25 History PFSH Medical History Acute bronchitis, unspecified Contact with and (suspected) exposure to other viral communicable diseases Non-smoker Endometrial cancer Diarrhea Migraines HTN (hypertension) Surgical History History of total abdominal hysterectomy History of cholecystectomy History of appendectomy Family History Mother Arthritis Migraine Father CAD (coronary artery disease) Hx of CABG Arthritis Social History Smoking Status: Never smoker alcohol intake: never HPI BL KNEES Details: This documentation accurately reflects the service provided and the decisions made by me, ROMEO Beck 02/24/25 0880. Part of today???s visit was documented by Codi SR, acting as scribe. WEST POSADAS is a 64 year old F here today for bilateral knee pain requesting bilateral knee steroid injections. She states that she did get relief from the Euflexxa for about 3 months. ROS Const All systems reviewed are unremarkable except as noted in H and other (A O x 3, no apparent distress. No recent illness.) ENT Denies dizziness Card Denies chest pain, Denies dyspnea, Denies edema and Reports other (No palpitations) Resp Denies cough, Denies dyspnea and Reports other (No recent URI) GI Reports system reviewed and no additional complaints, except as documented, Denies nausea and Denies vomiting Musc Reports as per HPI and Reports arthralgias Neuro No dizziness Psych Reports system reviewed and no additional complaints, except as documented Pablo/Lymph Denies easy bleeding and Denies easy bruising Ortho Exam General General: Yes no acute distress and Yes well groomed Neurologic: Yes alert and Yes oriented x3 Psychologic: Yes reasonable and appropriate Right Knee KNEE: Skin is pink, warm, dry and intact. There is minimal anteromedial swelling present, easily compressible. Inspection includes visible medial knee hypertrophy. ROM from 0 to 120 degrees. Calf is soft, nontender and easily compressible. Negative Homans. Positive tenderness over the medial joint line. Mild palpable crepitus Full range of distal joints with no symptom aggravation Distal motor or sensory intact with brisk cap refill at 2 seconds Left Knee Skin/Wound: No ecchymosis, No erythema and No swelling Homans Sign: No Examination: Yes med jt line tenderness and No TTP Pes Anserine Stability: NML: Anterior Drawer and NML: Posterior Drawer KNEE: Inspection includes visible medial knee hypertrophy greater than right knee. ROM from 0 to 120 degrees with stiffness reported greater than 100. Calf is soft, nontender and easily compressible. Negative Homans. Positive palpable crepitus on exam Full range of distal joints with no symptom aggravation Distal motor or sensory intact with brisk cap refill at 2 seconds Office Procedures Ortho Injections Injections Yes Kn (more content not included)... Normal [facility] Chiropractic Reporton 2024 Chiropractic Report [facility] [address] [place] [address] OFFICE VISIT Date of Service: 02/16/25 MR#: [id number] Acct: [id number] Name: WEST POSADAS Rep #: [id number] : 1960 Provider: DAVID Jensen Age/Sex: 64/F Location: [facility] [place] Status: Signed Intake Vital Signs 02/08/25 10:32 Height 5 ft 7 in Weight: 216 lb BMI 33.8 Intake Visit Reasons: Back pain Chief Complaint: Left Knee Pain - Steroid Injection Is patient in pain?: Yes (left low back ) Pain scale (1-10): 2 Allergies midazolam (From Versed) Allergy (Verified 02/16/25 10:17) hypotensive codeine Adverse Reaction (Verified 02/16/25 10:17) Vomiting erythromycin base Adverse Reaction (Verified 02/16/25 10:17) Vomiting Medications ???Medication ???Instructions ???Recorded ???Confirmed ???Type hydrochlorothiazide 25 mg tablet 25 mg PO DAILY 02/25/19 02/16/25 H istory meloxicam 7.5 mg tablet 7.5 mg PO DAILY pain 02/25/1901/31 History multivitamin 1 ea PO DAILY 02/25/19 02/16/25 Hi story diltiazem HCl 240 mg 240 mg PO DAILY 12/18/21 02/16/25 History capsule,extended release 24 hr gabapentin 300 mg capsule 300 mg PO QHS 12/18/21 02/16/25 Hi story loratadine 10 mg tablet (Claritin) 10 mg PO DAILY 12/18/21 02/16/25 History melatonin 10 mg capsule 10 mg PO HS PRN 12/18/21 02/16/25 History albuterol sulfate 90 mcg/actuation 2 puff inhalation Q6H PRN 02/16/25 Rx aerosol inhaler shortness of breath or wheezing #8.5 grams magnesium 200 mg tablet 200 mg PO QDAY 07/07/24 02/16/25 H istory pantoprazole 40 mg tablet,delayed 40 mg PO QDAY 07/07/24 02/16/25 H istory release (Protonix) PFSH Medical History Acute bronchitis, unspecified Contact with and (suspected) exposure to other viral communicable diseases Non-smoker Endometrial cancer Diarrhea Migraines HTN (hypertension) Surgical History History of total abdominal hysterectomy History of cholecystectomy History of appendectomy Family History Mother Arthritis Migraine Father CAD (coronary artery disease) Hx of CABG Arthritis Social History Smoking Status: Never smoker alcohol intake: never HPI Back pain Chief Complaint: low back pain Visit Number: 7 Details: WEST POSADAS is a 64 year old F here today for f/u low back/left hip pain. Pt. advises her back has been feeling pretty good but stepped down off a stool this past Friday and felt an achy pain in her left low back. She complains of left low back pain/ achiness since then. She states her low back pain does radiate down into her left hip, glute and upper hamstring. She states her gives her massages which gives her some relief. Her neck and upper back get stiffness from work. She rates her pain 2/10. She denies new injury, numbness or tingling. She treats pain at home with heat, stretching, Tylenol, Mobic and massages. Pt. states chiropractic adjustments are helpful in relieving some of her pain and discomfort but it gradually returns. Location: low back/neck Duration: frequent/intermittent Aggravating or associated factors: lifting, bending, sitting/work Relieving factors: chiro Pain Quality: aching, dull and radiating Exam Musc General: Yes normal posture, normal gait, joint tenderness and decreased range of motion Cervical Spine: Yes loss of normal cervical lordosis, Yes cervical muscular tenderness bilateral lower , Yes cervical spasm bilateral lower trapezius and paracervical muscles and Yes misalignment misalignment: C5, C6 and C7 Thoracic/Lumber: Yes thoracic and lumbar spine normal to inspection, Yes paraspinal tenderness on the right greater than left (upper/mid thoracic) and on the left greater than right (lumbar/pelvic), Yes thoraco-lumbar spasm on the right greater than left (QL, trap) and on the left greater than right (piriformis, glute), Yes Trigger (L SI and glute medius) and Yes misalignment T3, T6, T7, L3, L4, L5 and LIL Sacroiliac joints: on the left (edema) tender to palpation Office Procedures Procedures - Chiropractic Procedures Manipulation: Cervical C6, Lumbar L4, Thoracic T3 and T6 and Pelvis LIL Manipulation: 3-4 regions Traction, Mechanical: Yes Patient Response: positive Assessment and Plan Assessment and Plan (1) Segmental and somatic dysfunction of lumbar region: Status: Acute (2) Segmental and somatic dysfunction of thoracic region: Status: Acute (3) Segmental and somatic dysfunction of cervical region: Status: Acute (4) Segmental and somatic dysfunction of pelvic region: Status: Acute (5) Bulging lumbar disc: (more content not included)... Normal [facility] Orthopedic Visit Reporton Orthopedic Visit Report [facility] [address] [place] [address] OFFICE VISIT Date of Service: 02/08/25 MR#: [id number] Acct: [id number] Name: WEST POSADAS Rep #: [id number] : 1960 Provider: ROMEO page Age/Sex: 64/F Location: [facility] [place] Status: Signed Intake Vital Signs 11/01/24 10:04 12/06/24 14:58 02/08/25 10:32 Height 5 ft 7 in 5 ft 7 in 5 ft 7 in Weight: 216 lb BMI 33.8 Intake Visit Reasons: LEFT KNEE Chief Complaint: Left Knee Pain - Steroid Injection Accompanied by: Self Is patient in pain?: Yes Pain scale (1-10): 4 Allergies midazolam (From Versed) Allergy (Verified 02/08/25 09:03) hypotensive codeine Adverse Reaction (Verified 02/08/25 09:03) Vomiting erythromycin base Adverse Reaction (Verified 02/08/25 09:03) Vomiting Medications ???Medication ???Instructions ???Recorded ???Confirmed ???Type hydrochlorothiazide 25 mg tablet 25 mg PO DAILY 02/25/19 02/08/25 H istory meloxicam 7.5 mg tablet 7.5 mg PO DAILY pain 02/25/19 09/02/24 History multivitamin 1 ea PO DAILY 02/25/19 02/08/25 Hi story diltiazem HCl 240 mg 240 mg PO DAILY 12/18/21 02/08/25 History capsule,extended release 24 hr gabapentin 300 mg capsule 300 mg PO QHS 12/18/21 02/08/25 Hi story loratadine 10 mg tablet (Claritin) 10 mg PO DAILY 12/18/21 02/08/25 History melatonin 10 mg capsule 10 mg PO HS PRN 12/18/21 02/08/25 History albuterol sulfate 90 mcg/actuation 2 puff inhalation Q6H PRN 02/08/25 Rx aerosol inhaler shortness of breath or wheezing #8.5 grams magnesium 200 mg tablet 200 mg PO QDAY 07/07/24 02/08/25 H istory pantoprazole 40 mg tablet,delayed 40 mg PO QDAY 07/07/24 02/08/25 H istory release (Protonix) Post menopausal: Yes PFSH Medical History Acute bronchitis, unspecified Contact with and (suspected) exposure to other viral communicable diseases Non-smoker Endometrial cancer Diarrhea Migraines HTN (hypertension) Surgical History History of total abdominal hysterectomy History of cholecystectomy History of appendectomy Family History Mother Arthritis Migraine Father CAD (coronary artery disease) Hx of CABG Arthritis Social History Smoking Status: Never smoker alcohol intake: never HPI LEFT KNEE Details: This documentation accurately reflects the service provided and the decisions made by me, ROMEO Beck 02/08/25 0900. Part of today???s visit was documented by Sarah Weiss ATC, acting as scribe. WEST POSADAS is a 64 year old F here today for left knee pain. Patient rates her pain a 4/10 today and states she would like to discuss different treatment options. She denies any recent or new falls or injuries to the knee that would increase the pain. The last steroid injection was 11/04/2024 and she states it gave her quite a bit of relief and it just started wearing off about 2-3 weeks ago. She states it hasn't felt that good in a long time. Patient was initially planning on speaking with Dr. Pak and pursuing left knee TKA, however she felt she got such good relief over the last few months and multiple family matters to take care of currently she would like to continue conservative measures. She is working with her PCP regarding weight loss plan including nutrition counseling, exercise plan and low-dose phentermin. She did attend a session with [facility] through the hospital as well. ROS Const All systems reviewed are unremarkable except as noted in H and other (A O x 3, no apparent distress. No recent illness.) ENT Denies dizziness Card Denies chest pain, Denies dyspnea, Denies edema and Reports other (No palpitations) Resp Denies cough, Denies dyspnea and Reports other (No recent URI) GI Reports system reviewed and no additional complaints, except as documented, Denies nausea and Denies vomiting Musc Reports as per HPI and Reports arthralgias Neuro No dizziness Psych Reports system reviewed and no additional complaints, except as documented Pablo/Lymph Denies easy bleeding and Denies easy bruising Ortho Exam General General: Yes no acute distress and Yes well groomed Neurologic: Yes alert and Yes oriented x3 Psychologic: Yes reasonable and appropriate Right Knee KNEE: Skin is pink, warm, dry and intact. There is minimal anteromedial swelling present, easily compressible. Inspection includes visible medial knee hypertrophy. ROM from 0 to 120 degrees. Calf is soft, nontender and easily compressible. Negative Homans. Positive tenderness over the medial joint line. Negative anterior and p (more content not included)... Normal [facility] Orthopedic Visit Reporton Orthopedic Visit Report [facility] [address] [place], [place] [id number] OFFICE VISIT Date of Service: 11/04/24 MR#: [id number] Acct: [id number] Name: WEST POSADAS Rep #: [id number] : 1960 Provider: ROMEO page Age/Sex: 64/F [place] [facility] [place] Status: Signed with Addenda ADDENDUM by ROMEO Marks on 11/04/24 at 1310 Assessment and Plan Assessment and Plan (1) Localized osteoarthritis of left knee: Status: Acute (2) Osteoarthritis of right knee: Status: Acute Qualifiers: Osteoarthritis type: unspecified Qualified Code(s): M17.11 - Unilateral primary osteoarthritis, right knee (3) Obesity, class 2: Status: Acute Orders: Orders Ortho Injections Today M17.12 - Unilateral primary osteoarthritis, left knee Ortho Injections Today M17.11 - Unilateral primary osteoarthritis, right knee Plan Details Goals Barriers: Goals Decrease inflammation and pain Increase ability to work and maintain physical activity with less pain 11/04/24 1310 Date Karin Marks cc: * Signed Intake Vital Signs 07/07/24 08:42 11/01/24 10:04 11/04/24 12:00 Height 5 ft 7 in 5 ft 7 in 5 ft 7 in Weight: 227 lb BMI 35.5 Intake Visit Reasons: LEFT KNEE Chief Complaint: dysuria Allergies midazolam (From Versed) Allergy (Verified 10/30/24 09:35) hypotensive codeine Adverse Reaction (Verified 10/30/24 09:35) Vomiting erythromycin base Adverse Reaction (Verified 10/30/24 09:35) Vomiting [facility] Medical History Acute bronchitis, unspecified Contact with and (suspected) exposure to other viral communicable diseases Non-smoker Endometrial cancer Diarrhea Migraines HTN (hypertension) Surgical History History of total abdominal hysterectomy History of cholecystectomy History of appendectomy Family History Mother Arthritis Migraine Father CAD (coronary artery disease) Hx of CABG Arthritis Social History Smoking Status: Never smoker alcohol intake: never HPI LEFT KNEE Details: This documentation accurately reflects the service provided and the decisions made by Karin chan NP-C 11/04/24 0904. WEST POSADAS is a 64 year old F here today for 3-month follow-up viscosupplementation injection. Patient reports she got very good relief with the viscosupplementation injections. She states she has noticed increasing symptoms over the last 3 weeks with no identified aggravating factors or injury. Patient states symptoms are aggravated with standing and walking and better with sitting or rest. Left knee remains more symptomatic than the right knee. She has discussed TKA in the past with Dr. Pak and feels she may be ready to discuss more in depth later this year. Patient does take prescription Mobic and OTC Tylenol as needed. Patient is using the knee brace from earlier this year with weightbearing activities with some improvements. Also states she has been having right shoulder pain with mild weakness with no identified injury. ROS Const All systems reviewed are unremarkable except as noted in H and other (A O x 3, no apparent distress. No recent illness.) ENT Denies dizziness Card Denies chest pain, Denies dyspnea, Denies edema and Reports other (No palpitations) Resp Denies cough, Denies dyspnea and Reports other (No recent URI) GI Reports system reviewed and no additional complaints, except as documented, Denies nausea and Denies vomiting Musc Reports as per HPI and Reports arthralgias Neuro No dizziness Psych Reports system reviewed and no additional complaints, except as documented Pablo/Lymph Denies easy bleeding and Denies easy bruising Ortho Exam General General: Yes no acute distress and Yes well groomed Neurologic: Yes alert and Yes oriented x3 Psychologic: Yes reasonable and appropriate Right Knee KNEE: Skin is pink, warm, dry and intact. There is minimal anteromedial swelling present, easily compressible. Inspection includes visible medial knee hypertrophy. ROM from 0 to 120 degrees. Calf is soft, nontender and easily compressible. Negative Homans. Positive tenderness over the medial joint line. Negative anterior and posterior drawer, approximately 5 degree medial opening with varus stress No crepitus present Full range of distal joints with no symptom aggravation Distal motor or sensory intact with brisk cap refill at 2 seconds Left Knee Skin/Wound: No ecchymosis, No erythema and No swelling Homans Sign: No Examination: Yes med jt line tenderness and No TTP Pes Anserine (more content not included)... Normal [facility] Urine Cultureon 11-03-2024 URC #2 Below infection level. Urine Culture Escherichia coli [place] Count 25,000-50,000 Streptococcus agalactiae (B) Streptococcus agalactiae (B) Escherichia coli: REACTION Ampicillin Islt TING >=32 R Ampicillin+Sulbac Islt TING 16 Cefepime Islt TING <=0.12 S cefTRIAXone Islt TING <=0.25 S Ciprofloxacin Islt TING <=0.06 S B-Lactamase Extended Susc Islt NEG Gentamicin Islt TING <=1 S levoFLOXacin Islt TING <=0.12 S Meropenem Islt TING <=0.25 S Nitrofurantoin Islt TING <=16 S Pip+Tazo Islt TING <=4 S TMP SMX Islt TING <=[address] [facility] Comment on above: Performed By: #### M 100.2200 ####[facility] [id number] [place], [place], [id number] Urine cultureOrdered By: Yong Omalley on 11-01-2024 Bacteria identified Cx Nom (U) Escherichia coli Abnormal [facility] Bacteria identified Cx Nom (U) Streptococcus agalactiae (B) Abnormal [facility] - Chemistry and C hemistry - challengeOrdered By: Lisa Omalley on 10-30-2024 Bilirubin Ql (U) Negative [facility] Glucose Ql (U) Negative [facility] Ketones Ql (U) Negative [facility] pH (U) 6.0 [pH] [facility] Specific gravity (U) [Rel density] 1.015 [facility] Urobilinogen (U) [Mass/Vol] Negative [facility] - Hematology and Cell countsOrdered By: Lisa Omalley on 10-30-2024 Hemoglobin Ql (U) Negative [facility] - Specimen inform ationOrdered By: Lisa Omalley on 10-30-2024 Clarity (U) Clear [facility] Color (U) Dk Yellow [facility] - UrinalysisOrder ed By: Lisa Omalley on 10-30-2024 Nitrite Ql (U) Negative [facility] Protein Ql (U) Trace [facility] No Panel InformationOrdered By: Lisa Omalley on 10-30-[address] [facility] Urine Non-Hemolyzed Blood Moderate [facility] Urgent Care Visit Reporton 0 10-30-2024 [address] Report [facility] [address], [address] [place] [address] OFFICE VISIT Date of Service: 10/30/24 MR#: [id number] Acct: [id number] Name: WEST POSADAS Rep #: [id number] : 1960 Provider: ROMEO Omalley Age/Sex: 64/F Location[facility] Status: Signed Intake Vital Signs 07/07/24 08:42 10/30/24 09:00 Height 5 ft 7 in BP 142/84 H Blood Pressure Location Lt brachial Position Sitting Respiration 17 Pulse 82 Pulse Source NIBP Temp 98.7 F Temp Source Oral Pulse Oximetry (%) 97 Oxygen Delivery Method room air Intake Visit Reasons: CONCERN FOR UTI Chief Complaint: dysuria 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 Is patient in pain?: No Allergies midazolam (From Versed) Allergy (Verified 10/30/24 09:35) hypotensive codeine Adverse Reaction (Verified 10/30/24 09:35) Vomiting erythromycin base Adverse Reaction (Verified 10/30/24 09:35) Vomiting Medications ???Medication ???Instructions ???Recorded ???Confirmed ???Type hydrochlorothiazide 25 mg tablet 25 mg PO DAILY 02/25/19 10/05/24 H istory meloxicam 7.5 mg tablet 7.5 mg PO DAILY pain 02/25/19 0511/24 History multivitamin 1 ea PO DAILY 02/25/19 10/05/24 Hi story diltiazem HCl 240 mg 240 mg PO DAILY 12/18/21 10/05/24 History capsule,extended release 24 hr gabapentin 300 mg capsule 300 mg PO QHS 12/18/21 10/05/24 Hi story loratadine 10 mg tablet (Claritin) 10 mg PO DAILY 12/18/21 10/05/24 History melatonin 10 mg capsule 10 mg PO HS PRN 12/18/21 10/05/24 History albuterol sulfate 90 mcg/actuation 2 puff inhalation Q6H PRN 10/05/24 Rx aerosol inhaler shortness of breath or wheezing #8.5 grams magnesium 200 mg tablet 200 mg PO QDAY 07/07/24 10/05/24 H istory pantoprazole 40 mg tablet,delayed 40 mg PO QDAY 07/07/24 10/05/24 H istory release (Protonix) nitrofurantoin 100 mg PO Q12H 5 days #10 caps 10/30/24 Rx monohydrate/macrocrysta ls 100 mg capsule (Macrobid) Is last menstrual period known: No Post menopausal: Yes Patient : No Have you fallen in the past year?: No Nurse's Note: dysuria x 3 days. denies abd pain, back pain, fever. concern for UTI PFSH Medical History Acute bronchitis, unspecified Contact with and (suspected) exposure to other viral communicable diseases Non-smoker Endometrial cancer Diarrhea Migraines HTN (hypertension) Surgical History History of total abdominal hysterectomy History of cholecystectomy History of appendectomy Family History Mother Arthritis Migraine Father CAD (coronary artery disease) Hx of CABG Arthritis Social History Smoking Status: Never smoker alcohol intake: never HPI HPI Chief Complaint: dysuria Details: WEST POSADAS, is a 64 F who presents to the office today for dysuria -sx started 3-4 days ago -day before was bad then improved- last night a lot of frequency, urgency and pain -no fever or chills -no discharge or blood noted in urine denies abd/back or pelvic pain -tried so far increase fluids, cut back on caffeine ROS Const Constitutional: Positive for other (ROS negative x6 except what was placed in HPI) Exam Const General: cooperative and no acute distress Orientation: alert and oriented x3 Resp Effort Inspection: normal respiratory effort, able to speak in complete sentences and symmetric chest movement Auscultation: Bilateral: Clear to Auscultation, Left: Clear to Auscultation and Right: Clear to Auscultation Cardio Rate: regular rate Rhythm: regular rhythm Heart Sounds: S1 normal and S2 normal GI Auscultation: normal bowel sounds Palpation: soft and no hepatosplenomegaly Other: -no abd pain/tenderness with palpation -no CVA tenderness Neuro General: patient alert, patient awake and patient oriented x3 Extrem General: normal to inspection and full ROM Psych Appearance: grossly normal Mental Status: mental status grossly normal Attitude: cooperative Thought Process: normal Thought Content: normal Judgment: judgment good Results POC Urinalysis Dip (Clinic) Office Urine Color Dk Yellow Last Edit by Valerie Huynh on 10/30/24 09:05 Office Urine Clarity Clear Last Edit by Valerie Huynh on 10/30/24 09:05 Office Urine Glucose Negative Last Edit by Valerie Huynh on 10/30/24 09:05 Office Urine Ketones Negative Last Edit by Valerie Huynh on 10/30/24 09:05 Off Ur Spec [place] 1.015 Last Edit by Valerie Huynh on 10/30/24 09:05 Office Urine pH 6.0 Last Edit by Valerie Huynh on 10/30/24 09:05 Office Urine Bilirubin Negative Last Edit (more content not included)... Normal [facility] Cancer Antigen 125on CA 125 9.6 U/mL Normal 0.0-38.1 [facility] Comment on above: Result Comment: [employer] [employer] Electrochemiluminescence Immunoassay (ECLIA) Values obtained with different assay methods or kits cannot be used interchangeably. Results cannot be interpreted as absolute evidence of the presence or absence of malignant disease. Performed at: [address] [id number] Field Marketing Specialist: Jeffry Christensen PhD, Phone: [phone] Performed By: #### L 310.5000 ####[facility] [id number] [place], [address] Cancer antigen 125 (CA-125) measurementon 10-11-2024 Cancer antigen 125 (CA-125) measurement 9.6 U/mL 0.0-38.1 [facility] Comment on above: [employer] El ectrochemiluminescence Immunoassay(ECLIA)Values obtained with different assay methods or kits cannotbe used interchangeably. Results cannot be interpreted asabsolute evidence of the presence or absence of malignantdisease.Performed at: - [facility] [place], [place] [id number] Director: Jeffry Christensen PhD, Phone: [phone] Chiropractic Reporton 2024 Chiropractic Report [facility] [address] [place] [address] OFFICE VISIT Date of Service: 10/05/24 MR#: [id number] Acct: [id number] Name: WEST POSADAS Rep #: [id number] : 1960 Provider: DAVID Jensen Age/Sex: 64/F Location[place] [facility] Status: Signed Intake Vital Signs 07/07/24 08:42 Height 5 ft 7 in Intake Visit Reasons: Back pain Chief Complaint: low Back pain Is patient in pain?: Yes (LBP, Left hip) Pain scale (1-10): 3 Allergies midazolam (From Versed) Allergy (Verified 10/05/24 10:18) hypotensive codeine Adverse Reaction (Verified 10/05/24 10:18) Vomiting erythromycin base Adverse Reaction (Verified 10/05/24 10:18) Vomiting Medications ???Medication ???Instructions ???Recorded ???Confirmed ???Type hydrochlorothiazide 25 mg tablet 25 mg PO DAILY 02/25/19 10/05/24 H istory meloxicam 7.5 mg tablet 7.5 mg PO DAILY pain 02/25/19 05/11/24 History multivitamin 1 ea PO DAILY 02/25/19 10/05/24 Hi story diltiazem HCl 240 mg 240 mg PO DAILY 12/18/21 10/05/24 History capsule,extended release 24 hr gabapentin 300 mg capsule 300 mg PO QHS 12/18/21 10/05/24 Hi story loratadine 10 mg tablet (Claritin) 10 mg PO DAILY 12/18/21 10/05/24 History melatonin 10 mg capsule 10 mg PO HS PRN 12/18/21 10/05/24 History albuterol sulfate 90 mcg/actuation 2 puff inhalation Q6H PRN 10/05/24 Rx aerosol inhaler shortness of breath or wheezing #8.5 grams magnesium 200 mg tablet 200 mg PO QDAY 07/07/24 10/05/24 H istory pantoprazole 40 mg tablet,delayed 40 mg PO QDAY 07/07/24 10/05/24 H istory release (Protonix) [facility] Medical History Acute bronchitis, unspecified Contact with and (suspected) exposure to other viral communicable diseases Non-smoker Endometrial cancer Diarrhea Migraines HTN (hypertension) Surgical History History of total abdominal hysterectomy History of cholecystectomy History of appendectomy Family History Mother Arthritis Migraine Father CAD (coronary artery disease) Hx of CABG Arthritis Social History Smoking Status: Never smoker alcohol intake: never HPI Back pain Chief Complaint: mid/low back pain Visit Number: 6 Details: WEST POSADAS is a 64 year old F here today for f/u low back/left hip pain. She complains minimal neck pain and stiffness. She complains of increased low back pain and stiffness due to a minor procedure she had on her foot. She had to walk with a cane and be more sedentary for a few days which exacerbated her pain. The low back pain does radiate down into her left hip and this is the most painful for her. She has osteoarthritis in her knees and her left knee is the worst and the pain affects the way she walks which contributes to her pain. She also experiencing frequent knot in her low back and hip that her is able to massage for her which gives her relief. She rates her pain 3/10. She denies new injury, numbness or tingling. She treats pain at home with heat, stretching, Tylenol, Mobic and massages. Pt. states chiropractic adjustments are helpful in relieving some of her pain and discomfort but it gradually returns. Location: low back/neck Duration: intermittent/occasional Aggravating or associated factors: lifting, bending, sitting/work Relieving factors: chiro Pain Quality: aching and dull Exam Musc General: Yes normal posture, normal gait, joint tenderness and decreased range of motion Cervical Spine: Yes loss of normal cervical lordosis, Yes cervical muscular tenderness right greater than left lower , Yes cervical spasm bilateral lower trapezius and paracervical muscles and Yes misalignment misalignment: C5, C6 and C7 Thoracic/Lumber: Yes thoracic and lumbar spine normal to inspection, Yes paraspinal tenderness on the right greater than left (upper/mid thoracic) and on the left greater than right (lumbar/pelvic), Yes thoraco-lumbar spasm on the right greater than left (QL, trap) and on the left greater than right (piriformis, glute), Yes Trigger (L SI and glute medius) and Yes misalignment T3, T6, T7, L3, L4, L5 and LIL Sacroiliac joints: on the left (edema) tender to palpation Office Procedures Procedures - Chiropractic Procedures Manipulation: Cervical C6, Lumbar L4, Thoracic T3 and T6 and Pelvis LIL Manipulation: 3-4 regions Traction, Mechanical: Yes Hot and/or cold packs: Yes Patient Response: positive Assessment and Plan Assessment and Plan (1) Back pain: Qualifiers: Back pain location: low back pain Chronicity: acute Back pain laterality: left Sciatica presence: without sciatica Qualif (more content not included)... Normal [facility] Chiropractic Reporton 2024 Chiropractic Report [facility] [place] [address] OFFICE VISIT Date of Service: 09/07/24 MR#: [id number] Acct: [id number] Name: WEST POSADAS Rep #: [id number] : 1960 Provider: DAVID Jensen Age/Sex: 64/F [place] [facility] Status: Signed Intake Vital Signs 07/07/24 08:42 Height 5 ft 7 in Intake Visit Reasons: Back pain Chief Complaint: low Back pain Is patient in pain?: Yes (LBP, Left hip) Pain scale (1-10): 2 Allergies midazolam (From Versed) Allergy (Verified 09/07/24 09:36) hypotensive codeine Adverse Reaction (Verified 09/07/24 09:36) Vomiting erythromycin base Adverse Reaction (Verified 09/07/24 09:36) Vomiting Medications ???Medication ???Instructions ???Recorded ???Confirmed ???Type hydrochlorothiazide 25 mg tablet 25 mg PO DAILY 02/25/19 09/07/24 H istory meloxicam 7.5 mg tablet 7.5 mg PO DAILY pain 02/25/1901/24 History multivitamin 1 ea PO DAILY 02/25/19 09/07/24 Hi story diltiazem HCl 240 mg 240 mg PO DAILY 12/18/21 09/07/24 History capsule,extended release 24 hr gabapentin 300 mg capsule 300 mg PO QHS 12/18/21 09/07/24 Hi story loratadine 10 mg tablet (Claritin) 10 mg PO DAILY 12/18/21 09/07/24 History melatonin 10 mg capsule 10 mg PO HS PRN 12/18/21 09/07/24 History albuterol sulfate 90 mcg/actuation 2 puff inhalation Q6H PRN 09/07/24 Rx aerosol inhaler shortness of breath or wheezing #8.5 grams magnesium 200 mg tablet 200 mg PO QDAY 07/07/24 09/07/24 H istory pantoprazole 40 mg tablet,delayed 40 mg PO QDAY 07/07/24 09/07/24 H istory release (Protonix) PFSH Medical History Acute bronchitis, unspecified Contact with and (suspected) exposure to other viral communicable diseases Non-smoker Endometrial cancer Diarrhea Migraines HTN (hypertension) Surgical History History of total abdominal hysterectomy History of cholecystectomy History of appendectomy Family History Mother Arthritis Migraine Father CAD (coronary artery disease) Hx of CABG Arthritis Social History Smoking Status: Never smoker alcohol intake: never HPI Back pain Chief Complaint: mid/low back pain Visit Number: 6 Details: WEST POSADAS is a 64 year old F here today for f/u low back/left hip pain. She complains of mild neck pain and stiffness. She complains of ongoing low back pain that is worse on the left side. The pain does radiate down into her left hip. Her left hip pain bothers her the most. She has osteoarthritis in her knees and her left knee is the worst and the pain affects the way she walks which contributes to her pain. She also experiencing frequent knot in her low back and hip that her is able to massage for her which gives her relief. She rates her pain 2/10. She is no longer experiencing muscle spasms. She denies new injury, numbness or tingling. She treats pain at home with heat, stretching, Tylenol, Mobic and massages. Pt. states chiropractic adjustments are helpful in relieving some of her pain and discomfort but it gradually returns. Location: low back/neck Duration: intermittent Aggravating or associated factors: lifting, bending, sitting/work Relieving factors: chiro Pain Quality: aching and dull Exam Musc General: Yes normal posture, normal gait, joint tenderness and decreased range of motion Cervical Spine: Yes loss of normal cervical lordosis, Yes cervical muscular tenderness left greater than right lower , Yes cervical spasm bilateral lower trapezius and paracervical muscles and Yes misalignment misalignment: C5, C6 and C7 Thoracic/Lumber: Yes thoracic and lumbar spine normal to inspection, Yes paraspinal tenderness on the right greater than left (mid thoracic) and on the left greater than right (lumbar/pelvic), Yes thoraco-lumbar spasm on the right greater than left (QL, trap) and on the left greater than right (piriformis, glute), Yes Trigger (L SI and glute medius) and Yes misalignment T6, T7, L3, L4, L5 and LIL Sacroiliac joints: on the left (edema) tender to palpation Office Procedures Procedures - Chiropractic Procedures Manipulation: Cervical C6, Lumbar L4, Thoracic T3 and T6 and Pelvis LIL Manipulation: 3-4 regions Traction, Mechanical: Yes Hot and/or cold packs: Yes Patient Response: positive Assessment and Plan Assessment and Plan (1) Back pain: Qualifiers: Back pain location: low back pain Chronicity: acute Back pain laterality: left Sciatica presence: without sciatica Qualified Code(s): M54.50 - Low back pain, unspecified (2) Segmental and somatic dysfunction of lumbar region: (more content not included)... Normal [facility] Orthopedic Visit Reporton Orthopedic Visit Report [facility] [address] [place] [address] OFFICE VISIT Date of Service: 08/20/24 MR#: [id number] Acct: [id number] Name: WEST POSADAS Rep #: [id number] : 1960 Provider: ROMEO page Age/Sex: 64/F Location[place] [facility] Status: Signed Intake Vital Signs 07/07/24 08:42 Height 5 ft 7 in Intake Visit Reasons: LEFT KNEE Allergies midazolam (From Versed) Allergy (Verified 08/20/24 09:02) hypotensive codeine Adverse Reaction (Verified 08/20/24 09:02) Vomiting erythromycin base Adverse Reaction (Verified 08/20/24 09:02) Vomiting Medications ???Medication ???Instructions ???Recorded ???Confirmed ???Type hydrochlorothiazide 25 mg tablet 25 mg PO DAILY 02/25/19 08/20/24 H istory meloxicam 7.5 mg tablet 7.5 mg PO DAILY pain 02/25/19/06/26 History multivitamin 1 ea PO DAILY 02/25/19 08/20/24 Hi story diltiazem HCl 240 mg 240 mg PO DAILY 12/18/21 08/20/24 History capsule,extended release 24 hr gabapentin 300 mg capsule 300 mg PO QHS 12/18/21 08/20/24 Hi story loratadine 10 mg tablet (Claritin) 10 mg PO DAILY 12/18/21 08/20/24 History melatonin 10 mg capsule 10 mg PO HS PRN 12/18/21 08/20/24 History albuterol sulfate 90 mcg/actuation 2 puff inhalation Q6H PRN 08/20/24 Rx aerosol inhaler shortness of breath or wheezing #8.5 grams magnesium 200 mg tablet 200 mg PO QDAY 07/07/24 08/20/24 H istory pantoprazole 40 mg tablet,delayed 40 mg PO QDAY 07/07/24 08/20/24 H istory release (Protonix) PFSH Medical History Acute bronchitis, unspecified Contact with and (suspected) exposure to other viral communicable diseases Non-smoker Endometrial cancer Diarrhea Migraines HTN (hypertension) Surgical History History of total abdominal hysterectomy History of cholecystectomy History of appendectomy Family History Mother Arthritis Migraine Father CAD (coronary artery disease) Hx of CABG Arthritis Social History Smoking Status: Never smoker alcohol intake: never HPI LEFT KNEE Details: This documentation accurately reflects the service provided and the decisions made by me, EDWARD BeckC 08/20/24 0857. Part of today???s visit was documented by Codi SR, acting as scribe. WEST POSADAS is a 64 year old F here today for 3rd left knee Euflexxa injection. She states that she does feel improvement with the injection but notes that the steroid injection she has before the Euflexxa is now starting to wear off. Agree with above. Patient presents today for Euflexxa No. 3/3 to the left knee. Overall is noting improvements of increased weightbearing and activity ability, tolerated last week's injection with no adverse reactions. Wishes to pursue final injection of the series. Reports the quick effect from the cortisone is slightly wearing off but continues with overall improvements. ROS Const All systems reviewed are unremarkable except as noted in H and other (A O x 3, no apparent distress. No recent illness.) ENT Denies dizziness Card Denies chest pain, Denies dyspnea, Denies edema and Reports other (No palpitations) Resp Denies cough, Denies dyspnea and Reports other (No recent URI) GI Reports system reviewed and no additional complaints, except as documented, Denies nausea and Denies vomiting Musc Reports as per HPI and Reports arthralgias Neuro No dizziness Psych Reports system reviewed and no additional complaints, except as documented Pablo/Lymph Denies easy bleeding and Denies easy bruising Ortho Exam General General: Yes no acute distress Neurologic: Yes alert and Yes oriented x3 Psychologic: Yes reasonable and appropriate Left Knee Skin/Wound: No ecchymosis, No erythema and No swelling Homans Sign: No Examination: Yes med jt line tenderness and No TTP Pes Anserine Stability: NML: Anterior Drawer and NML: Posterior Drawer KNEE: Inspection includes visible medial knee hypertrophy. ROM from 0 to 120 degrees. Calf is soft, nontender and easily compressible. Negative Homans. Full range of distal joints with no symptom aggravation Distal motor or sensory intact with brisk cap refill at 2 seconds Office Procedures Euflexxa Procedure Details:: Verbal and written obtained consent for injection. Skin was prepped with chlorhexidine and alcohol swab. Skin was anesthetized with topical pain ease. Under sterile conditions, injected the patients Euflexxa injection #3/3 to the left knee. The patient tolerated the injection well without any noted complication, no bleeding noted postinjection. B (more content not included)... Normal [facility] Chiropractic Reporton 2024 Chiropractic Report [facility] [place] [address] OFFICE VISIT Date of Service: 08/17/24 MR#: [id number] Acct: [id number] Name: WEST POSADAS Rep #: [id number] : 1960 Provider: DAVID Jensen Age/Sex: 64/F Location[facility] Status: Signed Intake Vital Signs 07/07/24 08:42 Height 5 ft 7 in Intake Visit Reasons: Back pain Chief Complaint: low Back pain Allergies midazolam (From Versed) Allergy (Verified 08/06/24 08:30) hypotensive codeine Adverse Reaction (Verified 08/06/24 08:30) Vomiting erythromycin base Adverse Reaction (Verified 08/06/24 08:30) Vomiting PFSH Medical History Acute bronchitis, unspecified Contact with and (suspected) exposure to other viral communicable diseases Non-smoker Endometrial cancer Diarrhea Migraines HTN (hypertension) Surgical History History of total abdominal hysterectomy History of cholecystectomy History of appendectomy Family History Mother Arthritis Migraine Father CAD (coronary artery disease) Hx of CABG Arthritis Social History Smoking Status: Never smoker alcohol intake: never HPI Back pain Chief Complaint: mid/low back pain Visit Number: 5 Details: WEST POSADAS is a 64 year old F here today for f/u low back/left hip pain. Pt advises her pain has improved since her last adjustment. She states she is feeling better and is no longer coughing which has helped as well. She states she is experiencing mild pain and soreness in her low back, left hip and glute. She rates her pain 2/10. She is no longer experiencing muscle spasms. Her neck pain and stiffness comes and goes. She denies new injury, numbness or tingling. She treats pain at home with heat, stretching, Tylenol, Mobic and massages. Pt. states chiropractic adjustments are helpful in relieving some of her pain and discomfort but it gradually returns. Location: low back/neck Duration: intermittent Aggravating or associated factors: lifting, bending, sitting,sickness Relieving factors: chiro Pain Quality: aching and dull Exam Musc General: Yes normal posture, normal gait, joint tenderness and decreased range of motion Cervical Spine: Yes loss of normal cervical lordosis, Yes cervical muscular tenderness bilateral lower , Yes cervical spasm bilateral lower trapezius and paracervical muscles and Yes misalignment misalignment: C5, C6 and C7 Thoracic/Lumber: Yes thoracic and lumbar spine normal to inspection, Yes paraspinal tenderness on the right greater than left (mid thoracic) and on the left greater than right (lumbar/pelvic), Yes thoraco-lumbar spasm on the right greater than left (QL, trap) and on the left greater than right (piriformis, glute), Yes Trigger (L SI and glute medius) and Yes misalignment T6, T7, L3, L4, L5 and LIL Sacroiliac joints: on the left (edema) tender to palpation Office Procedures Procedures - Chiropractic Procedures Manipulation: Cervical C6, Lumbar L4, Thoracic T3 and T6 and Pelvis LIL Manipulation: 3-4 regions Traction, Mechanical: Yes Patient Response: positive Assessment and Plan Assessment and Plan (1) Segmental and somatic dysfunction of lumbar region: Status: Acute (2) Segmental and somatic dysfunction of thoracic region: Status: Acute (3) Segmental and somatic dysfunction of cervical region: Status: Acute (4) Segmental and somatic dysfunction of pelvic region: Status: Acute (5) Bulging lumbar disc: Status: Chronic Orders: Orders Chiropractic Treatments Today M51.26 - Other intervertebral disc displacement, lumbar region, M54.16 - Radiculopathy, lumbar region, M99.01 - Segmental and somatic dysfunction of cervical region, M99.02 - Segmental and somatic dysfunction of thoracic region, M99.03 - Segmental and somatic dysfunction of lumbar region, M99.05 - Segmental and somatic dysfunction of pelvic region, S39.012A - Strain of muscle, fascia and tendon of lower back, initial encounter Plan Patient was treated without incident. She is showing improvement overall. Plan Details Goals Barriers: Goals Decrease inflammation and pain Increase ability to work and maintain physical activity with less pain Follow Up: PRN Coding Level of Care Code No Charge Diagnoses Segmental and somatic dysfunction of lumbar region M99.03 Segmental and somatic dysfunction of thoracic region M99.02 Segmental and somatic dysfunction of cervical region M99.01 Segmental and somatic dysfunction of pelvic region M99.05 Bulging lumbar disc M51.26 CPT Codes Procedures - Manipulation: 3-4 regions (34589) Procedures - Traction, Mechanical: Yes (56032) (more content not included)... Normal [facility] Orthopedic Visit Reporton Orthopedic Visit Report [facility] [address] [place] [address] OFFICE VISIT Date of Service: 08/12/24 MR#: [id number] Acct: [id number] Name: WEST POSADAS Rep #: [id number] : 1960 Provider: ROMEO page Age/Sex: 64/F Location: [facility] [place] Status: Signed with Addenda ADDENDUM by ROMEO Marks on 08/25/24 at 1110 Assessment and Plan Assessment and Plan (1) Osteoarthritis, localized, knee: Status: Acute (2) Localized osteoarthritis of left knee: Status: Acute Orders: Orders Euflexxa Injection 08/12/24 Plan Details Goals Barriers: Goals Decrease inflammation and pain Increase ability to work and maintain physical activity with less pain 08/25/24 1110 Date Karin Marks cc: * Signed Intake Vital Signs 07/07/24 08:42 Height 5 ft 7 in Intake Visit Reasons: LEFT KNEE Allergies midazolam (From Versed) Allergy (Verified 08/06/24 08:30) hypotensive codeine Adverse Reaction (Verified 08/06/24 08:30) Vomiting erythromycin base Adverse Reaction (Verified 08/06/24 08:30) Vomiting PFSH Medical History Acute bronchitis, unspecified Contact with and (suspected) exposure to other viral communicable diseases Non-smoker Endometrial cancer Diarrhea Migraines HTN (hypertension) Surgical History History of total abdominal hysterectomy History of cholecystectomy History of appendectomy Family History Mother Arthritis Migraine Father CAD (coronary artery disease) Hx of CABG Arthritis Social History Smoking Status: Never smoker alcohol intake: never HPI LEFT KNEE Details: This documentation accurately reflects the service provided and the decisions made by me, Karin Marks, KISHORE-C 08/12/24 0906. Part of today???s visit was documented by [ ], acting as scribe. WEST POSADAS is a 64 year old F here today for 2nd euflexxa injection into her left knee. Patient states that she is doing well and has noticed improvement since the last injection. She denies any adverse reactions. Agree with above. Patient presents for Euflexxa injection #2/3 to the left knee. States moderate improvement after last injection, affect slightly less in the last 1 to 2 days. No new injuries. Denies any reaction from prior injection. ROS Const All systems reviewed are unremarkable except as noted in H and other (A O x 3, no apparent distress. No recent illness.) ENT Denies dizziness Card Denies chest pain, Denies dyspnea, Denies edema and Reports other (No palpitations) Resp Denies cough, Denies dyspnea and Reports other (No recent URI) GI Reports system reviewed and no additional complaints, except as documented, Denies nausea and Denies vomiting Musc Reports as per HPI and Reports arthralgias Neuro No dizziness Psych Reports system reviewed and no additional complaints, except as documented Pablo/Lymph Denies easy bleeding and Denies easy bruising Ortho Exam General General: Yes no acute distress Neurologic: Yes alert and Yes oriented x3 Psychologic: Yes reasonable and appropriate Left Knee Skin/Wound: No ecchymosis, No erythema and No swelling Homans Sign: No Examination: Yes med jt line tenderness and No TTP Pes Anserine Stability: NML: Anterior Drawer, NML: Posterior Drawer, NML: Valgus 0, NML: Valgus 30, NML: Varus 0 and NML: Varus 30 (fixed varus deformity) KNEE: Inspection includes visible medial knee hypertrophy. ROM from 0 to 120 degrees. Calf is soft, nontender and easily compressible. Negative Homans. Full range of distal joints with no symptom aggravation Distal motor or sensory intact with brisk cap refill at 2 seconds Office Procedures Euflexxa Procedure Details:: Verbal and written obtained consent for injection. Skin was prepped with chlorhexidine and alcohol swab. Skin was anesthetized with topical pain ease. Under sterile conditions, injected the patients Euflexxa injection #2/3. The patient tolerated the injection well without any noted complication, no bleeding noted postinjection. Bandage applied. Patient should call our office if redness develops, pain worsens or if they have any concerns. Is this Buy Bill?: Yes Office Meds Euflexxa 10 mg/mL (mw 2.4-3.6 million) intra-articular syringe Performing Provider: ROMEO Beck Performing Location: [facility] Administered by: ROMEO Beck on 08/12/24 09:08 Dose Route Admin Location Dispensed Lot Number Expiration Date NDC Man ufacturer 20 mg intra-articular left knee 2 mL [id number] 05/17/25 30534 (more content not included)... Normal [facility] Chiropractic Reporton 2024 Chiropractic Report [facility] [place] [address] OFFICE VISIT Date of Service: 08/10/24 MR#: [id number] Acct: [id number] Name: WEST POSADAS Rep #: [id number] : 1960 Provider: DAVID Jensen Age/Sex: 64/F [place] [facility] [place] Status: Signed Intake Vital Signs 07/07/24 08:42 Height 5 ft 7 in Intake Visit Reasons: Back pain Chief Complaint: low Back pain Is patient in pain?: Yes (low back ) Pain scale (1-10): 4 Allergies midazolam (From Versed) Allergy (Verified 08/06/24 08:30) hypotensive codeine Adverse Reaction (Verified 08/06/24 08:30) Vomiting erythromycin base Adverse Reaction (Verified 08/06/24 08:30) Vomiting PFSH Medical History Acute bronchitis, unspecified Contact with and (suspected) exposure to other viral communicable diseases Non-smoker Endometrial cancer Diarrhea Migraines HTN (hypertension) Surgical History History of total abdominal hysterectomy History of cholecystectomy History of appendectomy Family History Mother Arthritis Migraine Father CAD (coronary artery disease) Hx of CABG Arthritis Social History Smoking Status: Never smoker alcohol intake: never HPI Back pain Chief Complaint: mid/low back pain Visit Number: 4 Details: WEST POSADAS is a 64 year old F here today for f/u low back/left hip pain. Pt states her last adjustment was helpful but she continues to have coughing attacks especially at night. She states her low back is very sore. She states she has been sick for a few weeks now and the coughing really aggravates her low back pain. She rates her pain 4/10 and states the pain that is worse in the left side. She intermittently has muscle spasms that start in her left low back and radiate into her left glute. She denies new injury, numbness or tingling. She treats pain at home with heat, stretching, Tylenol, Mobic and her gives her massages. She states chiropractic adjustments are helpful in relieving some of her pain and discomfort but it gradually returns. Location: low back/neck Duration: frequent Aggravating or associated factors: lifting, bending, sitting,sickness Relieving factors: chiro Pain Quality: aching, dull and cramping Exam Musc General: Yes normal posture, normal gait, joint tenderness and decreased range of motion Cervical Spine: Yes loss of normal cervical lordosis, Yes cervical muscular tenderness bilateral lower , Yes cervical spasm bilateral lower trapezius and paracervical muscles and Yes misalignment misalignment: C5, C6 and C7 Thoracic/Lumber: Yes thoracic and lumbar spine normal to inspection, Yes paraspinal tenderness on the right greater than left (mid thoracic) and on the left greater than right (lumbar/pelvic), Yes thoraco-lumbar spasm on the right greater than left (QL, trap) and on the left greater than right (piriformis, glute), Yes Trigger (L SI and glute medius) and Yes misalignment T6, T7, L3, L4, L5 and LIL Sacroiliac joints: on the left (edema) tender to palpation Office Procedures Procedures - Chiropractic Procedures Manipulation: Cervical C6, Lumbar L4, Thoracic T3 and T6 and Pelvis LIL Manipulation: 3-4 regions Traction, Mechanical: Yes Patient Response: positive Assessment and Plan Assessment and Plan (1) Radiculopathy of lumbar region: Status: Chronic (2) Segmental and somatic dysfunction of lumbar region: Status: Acute (3) Segmental and somatic dysfunction of thoracic region: Status: Acute (4) Segmental and somatic dysfunction of cervical region: Status: Acute (5) Segmental and somatic dysfunction of pelvic region: Status: Acute Orders: Orders Chiropractic Treatments Today M54.16 - Radiculopathy, lumbar region, M99.01 - Segmental and somatic dysfunction of cervical region, M99.02 - Segmental and somatic dysfunction of thoracic region, M99.03 - Segmental and somatic dysfunction of lumbar region, M99.05 - Segmental and somatic dysfunction of pelvic region Plan Patient was treated without incident. She is showing improvement. Continue care as needed. Patient Instructions: Use saline nasal spray in evening. Plan Details Goals Barriers: Goals Decrease inflammation and pain Increase ability to work and maintain physical activity with less pain Follow Up: PRN Coding Level of Care Code No Charge Diagnoses Radiculopathy of lumbar region M54.16 Segmental and somatic dysfunction of lumbar region M99.03 Segmental and somatic dysfunction of thoracic region M99.02 Segmental and somatic dysfunction of cervical region M99.01 Segmental and somatic dysfunction of pelvic region (more content not included)... Normal [facility] Orthopedic Visit Reporton Orthopedic Visit Report [facility] [address] [place] [address] OFFICE VISIT Date of Service: 08/06/24 MR#: [id number] Acct: [id number] Name: WEST POSADAS Rep #: [id number] : 1960 Provider: ROMEO page Age/Sex: 64/F [place] [facility] [place] Status: Signed Intake Vital Signs 07/07/24 08:42 Height 5 ft 7 in Intake Visit Reasons: LEFT KNEE Allergies midazolam (From Versed) Allergy (Verified 08/06/24 08:30) hypotensive codeine Adverse Reaction (Verified 08/06/24 08:30) Vomiting erythromycin base Adverse Reaction (Verified 08/06/24 08:30) Vomiting Medications ???Medication ???Instructions ???Recorded ???Confirmed ???Type hydrochlorothiazide 25 mg tablet 25 mg PO DAILY 02/25/19 08/06/24 H istory meloxicam 7.5 mg tablet 7.5 mg PO DAILY pain 02/25/1912/24 History multivitamin 1 ea PO DAILY 02/25/19 08/06/24 Hi story diltiazem HCl 240 mg 240 mg PO DAILY 12/18/21 08/06/24 History capsule,extended release 24 hr gabapentin 300 mg capsule 300 mg PO QHS 12/18/21 08/06/24 Hi story loratadine 10 mg tablet (Claritin) 10 mg PO DAILY 12/18/21 08/06/24 History melatonin 10 mg capsule 10 mg PO HS PRN 12/18/21 08/06/24 History albuterol sulfate 90 mcg/actuation 2 puff inhalation Q6H PRN 08/06/24 Rx aerosol inhaler shortness of breath or wheezing #8.5 grams magnesium 200 mg tablet 200 mg PO QDAY 07/07/24 08/06/24 H istory pantoprazole 40 mg tablet,delayed 40 mg PO QDAY 07/07/24 08/06/24 H istory release (Protonix) PFSH Medical History Acute bronchitis, unspecified Contact with and (suspected) exposure to other viral communicable diseases Non-smoker Endometrial cancer Diarrhea Migraines HTN (hypertension) Surgical History History of total abdominal hysterectomy History of cholecystectomy History of appendectomy Family History Mother Arthritis Migraine Father CAD (coronary artery disease) Hx of CABG Arthritis Social History Smoking Status: Never smoker alcohol intake: never HPI LEFT KNEE Details: This documentation accurately reflects the service provided and the decisions made by me, Karin Marks NP-C 08/06/24 0806. Part of today???s visit was documented by Codi SR, acting as scribe. WEST POSADAS is a 64 year old F here today for 1st Euflexxa left knee. Agree with above. West is a pleasant 64-year-old female presenting today for Euflexxa injection #1/3 to left knee for diagnosis of left knee OA and pain. Patient is established in the practice, however she is new to me today. Patient has had 1-2 series of viscosupplementation over the last several years with good symptom control. No new knee injuries, symptoms mainly to the medial aspect of the left knee. ROS Const All systems reviewed are unremarkable except as noted in H and other (A O x 3, no apparent distress. No recent illness.) ENT Denies dizziness Card Denies chest pain, Denies dyspnea, Denies edema and Reports other (No palpitations) Resp Denies cough, Denies dyspnea and Reports other (No recent URI) GI Reports system reviewed and no additional complaints, except as documented, Denies nausea and Denies vomiting Musc Reports as per HPI and Reports arthralgias Neuro No dizziness Psych Reports system reviewed and no additional complaints, except as documented Pablo/Lymph Denies easy bleeding and Denies easy bruising Ortho Exam General General: Yes no acute distress Neurologic: Yes alert and Yes oriented x3 Psychologic: Yes reasonable and appropriate Left Knee Skin/Wound: No ecchymosis, No erythema and No swelling Homans Sign: No Examination: Yes med jt line tenderness and No TTP Pes Anserine Stability: NML: Anterior Drawer, NML: Posterior Drawer, NML: Valgus 0, NML: Valgus 30, NML: Varus 0 and NML: Varus 30 (fixed varus deformity) KNEE: Inspection includes visible medial knee hypertrophy. ROM from 0 to 120 degrees. Calf is soft, nontender and easily compressible. Negative Homans. Full range of distal joints with no symptom aggravation Distal motor or sensory intact with brisk cap refill at 2 seconds Office Procedures Euflexxa Procedure Details:: Verbal and written obtained consent for injection. Skin was prepped with chlorhexidine and alcohol swab. Skin was anesthetized with topical pain ease. Under sterile conditions, injected the patients Euflexxa injection #1/3. The patient tolerated the injection well without any noted complication, no bleeding noted postinjection. Bandage applied. Patient should call our office if redness dev (more content not included)... Normal [facility] Chiropractic Reporton 2024 Chiropractic Report [facility] [address] [place] [address] OFFICE VISIT Date of Service: 08/03/24 MR#: [id number] Acct: [id number] Name: WEST POSADAS Rep #: [id number] : 1960 Provider: DAVID Jensen Age/Sex: 64/F [place] [facility] Status: Signed Intake Vital Signs 01/12/24 08:01 07/07/24 08:42 Height 5 ft 7 in 5 ft 7 in Intake Visit Reasons: Back pain Chief Complaint: Back pain Is patient in pain?: Yes (low back ) Pain scale (1-10): 3 Allergies midazolam (From Versed) Allergy (Verified 08/03/24 09:11) hypotensive codeine Adverse Reaction (Verified 08/03/24 09:11) Vomiting erythromycin base Adverse Reaction (Verified 08/03/24 09:11) Vomiting Medications ???Medication ???Instructions ???Recorded ???Confirmed ???Type hydrochlorothiazide 25 mg tablet 25 mg PO DAILY 02/25/19 08/03/24 H istory meloxicam 7.5 mg tablet 7.5 mg PO DAILY pain 02/25/19 03/09/24 History multivitamin 1 ea PO DAILY 02/25/19 08/03/24 Hi story diltiazem HCl 240 mg 240 mg PO DAILY 12/18/21 08/03/24 History capsule,extended release 24 hr gabapentin 300 mg capsule 300 mg PO QHS 12/18/21 08/03/24 Hi story loratadine 10 mg tablet (Claritin) 10 mg PO DAILY 12/18/21 08/03/24 History melatonin 10 mg capsule 10 mg PO HS PRN 12/18/21 08/03/24 History albuterol sulfate 90 mcg/actuation 2 puff inhalation Q6H PRN 08/03/24 Rx aerosol inhaler shortness of breath or wheezing #8.5 grams magnesium 200 mg tablet 200 mg PO QDAY 07/07/24 08/03/24 H istory pantoprazole 40 mg tablet,delayed 40 mg PO QDAY 07/07/24 08/03/24 H istory release (Protonix) [facility] Medical History Acute bronchitis, unspecified Contact with and (suspected) exposure to other viral communicable diseases Non-smoker Endometrial cancer Diarrhea Migraines HTN (hypertension) Surgical History History of total abdominal hysterectomy History of cholecystectomy History of appendectomy Family History Mother Arthritis Migraine Father CAD (coronary artery disease) Hx of CABG Arthritis Social History Smoking Status: Never smoker alcohol intake: never HPI Back pain Chief Complaint: mid/low back pain Visit Number: 3 Details: WEST POSADAS is a 64 year old F here today for f/u low back/left hip pain. Pt presents ambulating with a cane. She continues to have a flare up of low back pain. She states she has been sick since last . and has been coughing a great deal which is aggravating her low back pain. She rates her pain 3/10 but increases to 6/10 when coughing. She states the pain that is worse in the left side. She intermittently has muscle spasms that start in her left low back and radiate up into her mid back. She is having trouble ambulating due to the pain and she is unable to sit or stand for long periods. She denies new injury, numbness or tingling. She treats pain at home with heat, stretching, Tylenol, Mobic and her gives her massages. She states chiropractic adjustments are helpful in relieving some of her pain and discomfort. Location: low back/neck Duration: frequent Aggravating or associated factors: lifting, bending, sitting Relieving factors: chiro Pain Quality: aching, dull and cramping Exam Musc General: Yes normal posture, normal gait, joint tenderness and decreased range of motion Cervical Spine: Yes loss of normal cervical lordosis Thoracic/Lumber: Yes thoracic and lumbar spine normal to inspection, Yes paraspinal tenderness on the right greater than left (mid thoracic) and on the left greater than right (lumbar/pelvic), Yes thoraco-lumbar spasm on the right greater than left (QL, trap) and on the left greater than right (piriformis, glute), Yes Trigger (L SI and glute medius) and Yes misalignment T6, T7, L3, L4, L5 and LIL Sacroiliac joints: on the left (edema) tender to palpation Office Procedures Procedures - Chiropractic Procedures Manipulation: Lumbar L4, Thoracic T6 and Pelvis LIL Manipulation: 3-4 regions Traction, Mechanical: Yes Patient Response: positive Assessment and Plan Assessment and Plan (1) Back pain: Qualifiers: Back pain laterality: left Back pain location: low back pain Chronicity: acute Sciatica presence: without sciatica Qualified Code(s): M54.50 - Low back pain, unspecified (2) Segmental and somatic dysfunction of lumbar region: Status: Acute (3) Segmental and somatic dysfunction of thoracic region: Status: Acute (4) Segmental and somatic dysfunction of pelvic region: Status: Acute (5) Bulging lumbar disc: Status: Chronic Orders: Orders Chi (more content not included)... Normal [facility] Chiropractic Reporton 2024 Chiropractic Report [facility] [place] [address] OFFICE VISIT Date of Service: 07/26/24 MR#: [id number] Acct: [id number] Name: WEST POSADAS Rep #: [id number] : 1960 Provider: DAVID Jensen Age/Sex: 64/F [place] [facility] [place] Status: Signed Intake Vital Signs 07/07/24 08:42 Height 5 ft 7 in Weight: 217 lb 6 oz BMI 34.0 Intake Visit Reasons: Back pain Chief Complaint: Back pain Is patient in pain?: Yes (Low back) Pain scale (1-10): 5 Allergies midazolam (From Versed) Allergy (Verified 07/26/24 11:18) hypotensive codeine Adverse Reaction (Verified 07/26/24 11:18) Vomiting erythromycin base Adverse Reaction (Verified 07/26/24 11:18) Vomiting Medications ???Medication ???Instructions ???Recorded ???Confirmed ???Type hydrochlorothiazide 25 mg tablet 25 mg PO DAILY 02/25/19 07/26/24 H istory meloxicam 7.5 mg tablet 7.5 mg PO DAILY pain 02/25/1907/04 History multivitamin 1 ea PO DAILY 02/25/19 07/26/24 Hi story diltiazem HCl 240 mg 240 mg PO DAILY 12/18/21 07/26/24 History capsule,extended release 24 hr gabapentin 300 mg capsule 300 mg PO QHS 12/18/21 07/26/24 Hi story loratadine 10 mg tablet (Claritin) 10 mg PO DAILY 12/18/21 07/26/24 History melatonin 10 mg capsule 10 mg PO HS PRN 12/18/21 07/26/24 History albuterol sulfate 90 mcg/actuation 2 puff inhalation Q6H PRN 07/26/24 Rx aerosol inhaler shortness of breath or wheezing #8.5 grams magnesium 200 mg tablet 200 mg PO QDAY 07/07/24 07/26/24 H istory pantoprazole 40 mg tablet,delayed 40 mg PO QDAY 07/07/24 07/26/24 H istory release (Protonix) PFSH Medical History Acute bronchitis, unspecified Contact with and (suspected) exposure to other viral communicable diseases Non-smoker Endometrial cancer Diarrhea Migraines HTN (hypertension) Surgical History History of total abdominal hysterectomy History of cholecystectomy History of appendectomy Family History Mother Arthritis Migraine Father CAD (coronary artery disease) Hx of CABG Arthritis Social History (Reviewed 07/26/24 @ 11:18 by Florecita Baca Smoking Status: Never smoker alcohol intake: never HPI Back pain Chief Complaint: mid/low back pain Visit Number: 2 Details: WEST POSADAS is a 64 year old F here today for f/u low back/left hip pain. She presents ambulating with a cane. She is currently having a flare up of low back pain. She reports her back going out the day after she was babysitting her grandchildren. It has been a week and she has not improved. She complains of low back pain that is worse in the left side. She has been experiencing muscle spasms that start in her left low back and radiate up into her mid back. She is having trouble ambulating due to the pain and she is unable to sit or stand for long periods. She complains of neck pain and stiffness that is worse on the right side. She rates her pain 5/10 and states by the end of the day it is a 7/10. She continues to use her standing desk and stretch at work as much as possible. She denies new injury, numbness or tingling. She treats pain at home with heat, stretching, Tylenol, Mobic and her gives her massages. She states chiropractic adjustments are helpful in relieving her pain and discomfort. Location: low back/neck Duration: frequent Aggravating or associated factors: lifting, bending, sitting Relieving factors: chiro Pain Quality: aching, dull and cramping Exam Musc General: Yes normal posture, normal gait, joint tenderness and decreased range of motion Cervical Spine: Yes loss of normal cervical lordosis, Yes cervical muscular tenderness right greater than left diffuse , Yes cervical spasm right greater than left diffuse trapezius and paracervical muscles and Yes misalignment misalignment: C4, C5 and C6 Thoracic/Lumber: Yes thoracic and lumbar spine normal to inspection, Yes pain with thoraco-lumbar ROM with forward flexion, with lateral flexion to the right, with lateral flexion to the left, with rotation to the right and with rotation to the left, Yes paraspinal tenderness on the right greater than left (mid thoracic) and on the left greater than right (lumbar/pelvic), Yes thoraco-lumbar ROM limited, Yes thoraco-lumbar spasm (improving) on the right greater than left (QL, trap) and on the left greater than right (piriformis, glute), Yes Trigger (L SI and glute medius) and Yes misalignment T1, T2, T6, T7, L3, L4, L5 and LIL Sacroiliac joints: on the left (edema) tender to palpation Office Procedures Procedures - Chiropractic Procedures Manipulation: Cervical C6, Lumbar L4, Thorac (more content not included)... Normal [facility] Orthopedic Visit Reporton Orthopedic Visit Report [facility] [address] [place] [address] [address] [place] [address] OFFICE VISIT Date of Service: 07/07/24 MR#: [id number] Acct: [id number] Name: WEST POSADAS Rep #: [id number] : 1960 Provider: Dr. Chace wu DO Age/Sex: 64/F Location[place] [facility] Status: Signed Intake Vital Signs 01/12/24 08:01 07/07/24 08:42 Height 5 ft 7 in 5 ft 7 in Weight: 217 lb 6 oz BMI 34.0 Intake Visit Reasons: BILATERAL KNEES Accompanied by: Self Is patient in pain?: Yes Pain scale (1-10): 3 Allergies midazolam (From Versed) Allergy (Verified 07/07/24 08:51) hypotensive codeine Adverse Reaction (Verified 07/07/24 08:51) Vomiting erythromycin base Adverse Reaction (Verified 07/07/24 08:51) Vomiting Medications ???Medication ???Instructions ???Recorded ???Confirmed ???Type hydrochlorothiazide 25 mg tablet 25 mg PO DAILY 02/25/19 07/07/24 H istory meloxicam 7.5 mg tablet 7.5 mg PO DAILY pain 02/25/19/10/24 History multivitamin 1 ea PO DAILY 02/25/19 07/07/24 Hi story diltiazem HCl 240 mg 240 mg PO DAILY 12/18/21 07/07/24 History capsule,extended release 24 hr gabapentin 300 mg capsule 300 mg PO QHS 12/18/21 07/07/24 Hi story loratadine 10 mg tablet (Claritin) 10 mg PO DAILY 12/18/21 07/07/24 History melatonin 10 mg capsule 10 mg PO HS PRN 12/18/21 07/07/24 History albuterol sulfate 90 mcg/actuation 2 puff inhalation Q6H PRN 07/07/24 Rx aerosol inhaler shortness of breath or wheezing #8.5 grams magnesium 200 mg tablet 200 mg PO QDAY 07/07/24 07/07/24 H istory pantoprazole 40 mg tablet,delayed 40 mg PO QDAY 07/07/24 07/07/24 H istory release (Protonix) PFSH Medical History Acute bronchitis, unspecified Contact with and (suspected) exposure to other viral communicable diseases Non-smoker Endometrial cancer Diarrhea Migraines HTN (hypertension) Surgical History History of total abdominal hysterectomy History of cholecystectomy History of appendectomy Family History Mother Arthritis Migraine Father CAD (coronary artery disease) Hx of CABG Arthritis Social History Smoking Status: Never smoker alcohol intake: never HPI BILATERAL KNEES Details: This documentation accurately reflects the service provided and the decisions made by me, Dr. Chace Pak, DO 07/07/24 0757. Part of today???s visit was documented by [ ], acting as scribe. WEST POSADAS is a 64 year old F and although she has been seen in the past it has been over 3 years here today for bilateral knee pain, left worse than right. Patient notes that she has constant pain which is worsening. She states that she has pain over her medial knee and radiates into her quad. She notes that she has increased pain with ambulation and is unable to walk long distances. She has painful popping and clicking. Patient denies any instability. Patient has had to use a cane to ambulate if she has severe pain. She has seen her her PCP for steroid and visco injections, which has been helpful. Her last steroid injection was about a year ago. Patient was seen in 2019 and had left knee Euflexxa injections which were helpful. Patient had chemo about 3 years ago, and she had a bad reaction. She notes that she had really bad joint pain after the chemo and that increased her knee pain. Her last chemo was 3 years ago. Patient denies any formal physical therapy. She has KT tape which she tapes her knee, and she wears a knee sleeve. Patient takes mobic daily for general joint pain, neurontin and tylenol for pain as needed. Patient had xrays which are here for review. She denies any MRI. Ortho Exam General General: Yes no acute distress Neurologic: Yes alert and Yes oriented x3 Psychologic: Yes reasonable and appropriate Right Knee Skin/Wound: Yes CDI, No erythema, No ecchymosis and No swelling Homans Sign: No Knee ROM: Yes ROM-Extension -20 to 0 (-5) and Yes ROM-Flexion 0-140 (118) Examination: Yes Med jt line tenderness, Yes Lat jt line tenderness, No Crepitus, Yes TTP Pes Anserine and No Illiotibial band tenderness Stability: NML: Anterior Drawer, NML: Posterior Drawer, NML: Valgus 0, NML: Valgus 30, NML: Varus 0 and NML: Varus 30 (fixed varus) Patella Translation: 1 Patella Grind: Yes Left Knee Skin/Wound: Yes CDI, No ecchymosis, No erythema and No swelling Homans Sign: No Knee ROM: Yes ROM-Extension -20 to 0 (-11) and Yes ROM-Flexion 0-140 (100) Examination: Yes med jt line tenderness, Yes Lat jt line tenderness and No TTP Pes Anserine Stability: NML: Anterior Drawer, NML: Posterior Drawer, NML: Valgus 0, NM (more content not included)... Normal [facility] Knee 4 or More Viewson 06-15 Knee 4 or More Views [facility] [address] [place] [address] Knee 4 or More Views MR#: [id number] Acct: [id number] Name: WEST POSADAS Rep #: [id number] : 1960 F 64 From: Mal Cruz PCP: Dr. Charo Swenson DO Status: REG CLI Study: Knee 4 or More Views Date of Exam: 06/15/24 Exam# [id number] Ordering Dr: [place] [id number] INDICATION: pain EXAMINATION/TECHNIQUE: X-RAY - LEFT XR Knee Complete 4 Views or More 4 VIEWS COMPARISON: Prior study dated: [09/18/2022 FINDINGS: SOFT TISSUES: No soft tissue swelling or gas. No radiopaque foreign body. BONES/JOINTS: No acute fracture or subluxation.. Normal alignment. Severe narrowing of the medial joint compartment. Mild degenerative arthrosis of the patellofemoral joint. No evidence of joint effusion. No sclerotic or destructive changes observed. RAD/Knee 4 or More Views IMPRESSION: Severe degenerative arthrosis essentially unchanged. Electronically Signed: Mal Barahona MD at 12:29 EST , CC: Dr. Chace Pak DO; Dr. Charo Swenson DO Business Intelligence Analyst: Signed Normal [facility] Knee 4 or More Views [facility] [address] [place] [id number] Knee 4 or More Views MR#: [id number] Acct: [id number] Name: WEST POSADAS Rep #: [id number] : 1960 F 64 From: Mal Cruz PCP: Dr. Charo Swenson DO Status: REG CLI Study: Knee 4 or More Views Date of Exam: 06/15/24 Exam# [id number] Ordering Dr: [place] [id number] INDICATION: pain EXAMINATION/TECHNIQUE: X-RAY - RIGHT XR Knee Complete 4 Views or More 4 VIEWS COMPARISON: No relevant prior comparison study available FINDINGS: SOFT TISSUES: No soft tissue swelling or gas. No radiopaque foreign body. BONES/JOINTS: No acute fracture or subluxation.. Normal alignment. Severe narrowing of the medial joint compartment with marginal degenerative spurs. Mild degenerative arthrosis of the patellofemoral joint. No evidence of joint effusion. RAD/Knee 4 or More Views IMPRESSION: Degenerative arthrosis of the right kidney. Electronically Signed: Mal Barahona MD at 12:28 EST , CC: Dr. Chace Pak DO; Dr. Charo Swenson DO Business Intelligence Analyst: Signed Normal [facility] Chiropractic Reporton 2024 Chiropractic Report [facility] [address] [place] [address] OFFICE VISIT Date of Service: 06/08/24 MR#: [id number] Acct: [id number] Name: WEST POSADAS Rep #: [id number] : 1960 Provider: DAVID Herman Do ssi Age/Sex: 64/F Location[place] [facility] Status: Signed Intake Vital Signs 01/12/24 08:01 Height 5 ft 7 in Intake Visit Reasons: Back pain Chief Complaint: Back pain Is patient in pain?: Yes (Neck, LBP) Pain scale (1-10): 5 Allergies midazolam (From Versed) Allergy (Verified 06/08/24 10:41) hypotensive codeine Adverse Reaction (Verified 06/08/24 10:41) Vomiting erythromycin base Adverse Reaction (Verified 06/08/24 10:41) Vomiting Medications ???Medication ???Instructions ???Recorded ???Confirmed ???Type hydrochlorothiazide 25 mg tablet 25 mg PO DAILY 02/25/19 06/08/24 History meloxicam 7.5 mg tablet 7.5 mg PO DAILY pain 02/25/19 06/08/24 History multivitamin 1 ea PO DAILY 02/25/19 06/08/24 History diltiazem HCl 240 mg 240 mg PO DAILY 12/18/21 06/08/24 History capsule,extended release 24 hr gabapentin 300 mg capsule 300 mg PO QHS 12/18/21 06/08/24 History loratadine 10 mg tablet (Claritin) 10 mg PO DAILY 12/18/21 06/08/24 History melatonin 10 mg capsule 10 mg PO HS PRN 12/18/21 06/08/24 History albuterol sulfate 90 mcg/actuation 2 puff inhalation Q6H PRN 03/25/24 06/08/24 Rx aerosol inhaler shortness of breath or wheezing #8.5 grams azithromycin 250 mg tablet See Rx Instructions PO .COMPLEX #6 03/25/24 06/08/24 Rx tabs benzonatate 100 mg capsule 200 mg (2 x 100 mg) PO TID PRN 03/25/24 06/08/24 Rx cough #30 caps PFSH Medical History Acute bronchitis, unspecified Contact with and (suspected) exposure to other viral communicable diseases Non-smoker Endometrial cancer Diarrhea Migraines HTN (hypertension) Surgical History History of total abdominal hysterectomy History of cholecystectomy History of appendectomy Family History Mother Arthritis Migraine Father CAD (coronary artery disease) Hx of CABG Arthritis Social History Smoking Status: Never smoker alcohol intake: never HPI Back pain Chief Complaint: mid/low back pain Visit Number: 10 Details: WEST POSADAS is a 63 year old F here today for f/u low back/left hip pain. She was very busy with the holiday season and states this exacerbated her pain. She complains of neck pain and stiffness that is worse on the right side. It extends into her right shoulder and down into her bicep. She denies headaches. She also complains of low back pain that is worse on the left side and extends into her hip and buttocks.She rates her shoulder pain 3/10 but states by the end of the day it is an 8/10. She rates her low back pain 5/10. Since returning to work she has noticed an increase in her pain and stiffness. She continues to use her standing desk and stretch at work as much as possible. She denies new injury, numbness or tingling. She treats pain at home with heat, stretching, Tylenol, Mobic and her gives her massages. She states chiropractic adjustments are helpful in relieving her pain and discomfort. Location: low back/L hip Duration: intermittent Aggravating or associated factors: lifting, bending, sitting Relieving factors: chiro Pain Quality: aching and dull Exam Musc General: Yes normal posture, normal gait, joint tenderness and decreased range of motion Cervical Spine: Yes loss of normal cervical lordosis, Yes cervical muscular tenderness (mild) right greater than left lower , Yes cervical spasm right greater than left diffuse trapezius and paracervical muscles and Yes misalignment misalignment: C4, C5 and C6 Thoracic/Lumber: Yes thoracic and lumbar spine normal to inspection, Yes paraspinal tenderness (improving) on the right greater than left (mid thoracic) and on the left greater than right (lumbar/pelvic), Yes thoraco-lumbar spasm (improving) on the right greater than left (QL, trap) and on the left greater than right (piriformis, glute), Yes Trigger (L SI and glute medius) and Yes misalignment T1, T2, T6, T7, L3, L4, L5 and LIL Sacroiliac joints: on the left (edema) tender to palpation Office Procedures Procedures - Chiropractic Procedures Manipulation: Cervical C6, Lumbar L4, Thoracic T2 and T6 and Pelvis LIL Manipulation: 3-4 regions Traction, Mechanical: Yes Patient Response: positive Assessment and Plan Assessment and Plan (1) Segmental and somatic dysfunction of lumbar region: Status: Acute (2) Segmental and somatic dysfunction of thoracic region: Status: Acute (3) Segmental and somatic dy (more content not included)... Normal [facility] SCRN MAMM (CAD)W/WENCESLAO Rust n 05-11-2024 SCRN MAMM (CAD)W/WENCESLAO [facility] [address] [place], [place] [address] SCRN MAMM (CAD)W/WENCESLAO [place] MR#: [id number] Acct: [id number] Name: WEST POSADAS Rep #: [id number] : 1960 F 64 From: Vadim castro MD PCP: Dr. Charo Swenson DO Status: REG [facility] Study: SCRN MAMM (CAD)W/WENCESLAO BILAT Date of Exam: 05/02 Exam# [id number] Ordering Dr: [place] [id number] MAMMOGRAPHY - BILATERAL SCREENING REASON FOR EXAM: Female, 64 years old. Routine annual screening examination. PERTINENT HISTORY: Non-contributory. TECHNIQUE: Digital bilateral breast wenceslao (3D mammographic acquisition) in the CC and MLO projections. 2-D mediolateral oblique (MLO) and craniocaudad (CC) views of both breasts were obtained. CAD: Full Field Digital Mammography with Computer Added Detection was performed. COMPARISON: Comparison is made with prior study dated May 30, 2022 and July 24, 2020. FINDINGS: Breast Composition: The breasts are heterogeneously dense, which may obscure small masses. There are no dominant masses or suspicious calcifications. Stable small benign-appearing bilateral axillary lymph nodes. No other significant abnormalities are identified. There has been no significant change since the prior study. BI/SCRN MAMM (CAD)W/WENCESLAO BILAT IMPRESSION: Stable bilateral screening mammogram. Yearly follow-up mammogram recommended. (A) ASSESSMENT CATEGORY: BIRADS Category 2: Benign. A letter regarding these results will be sent to the patient by the facility within 30 days. Approximately 10% of breast cancers are not detected by mammography. A normal mammogram should not delay biopsy of a clinically suspicious abnormality. [id number] Electronically Signed: Vadim Wei MD at 8:48 EST , CC: Dr. Charo Swenson, Business Intelligence Analyst: Signed Normal [facility] Cancer Antigen 125on 024 CA 125 13.2 U/mL Normal 0.0-38.1 [facility] Comment on above: Order Comment: ADD O NTO SST Result Comment: [facility] Electrochemiluminescence Immunoassay (ECLIA) Values obtained with different assay methods or kits cannot be used interchangeably. Results cannot be interpreted as absolute evidence of the presence or absence of malignant disease. Performed at: [facility] [id number] Field Marketing Specialist: Jeffry Christensen PhD, Phone: [phone] Performed By: #### L 501.9520, L500.4100, L502.0250, L500.4050, L100.0100, L506.1000, L3100.5000, L400.0001 ####[facility] [address] [place], [place], [address] 45-NN-Iavkrnx DOrdered By: Elke Swenson on 04-15-2024 Vitamin D 25-Hydroxy 31.1 ng/mL [facility] Comment on above: Vitamin D 25(OH) Sta tus Range Deficiency <20 ng/mL (50nmol/L) Insufficiency 20 - 30 ng/mL (50 - 75 nmol/L) Sufficiency 30 - 100 ng/mL (75 - 250 nmol/L) Toxicity >100 ng/mL (>250 nmol/L) Absolute neutrophil countOrd ered By: Charo Swenson on 04-15-2024 Neutrophils (Bld) [#/Vol] 4.1 10*3/uL 2.0-7.7 [facility] Albumin to globulin ratioOrd ered By: Charo Swenson on 04-15-2024 Albumin/Globulin [Mass ratio] 1.0 {ratio} 0.9-2.4 [facility] Bacteria LM.HPF (Urine sed) [#/Area]Ordered By: Charo Swenson on 04-15-2024 Urine Bacteria RARE /hpf None Seen [facility] Basophil percentageOrdered B y: Charo Swenson on 04-15-2024 Basophils/100 WBC (Bld) 0.6 % 0-1 [facility] Bilirubin Test strip Ql (U)O rdered By: Charo Swenson on 04-15-2024 Bilirubin Ql (U) Negative Negative [facility] Bilirubin, totalOrdered By: Charo Swenson on 04-15-2024 Bilirubin [Mass/Vol] 0.50 mg/dL 0.20-1.00 [facility] Comment on above: For patients on eltr ombopag therapy, use of Dimension Ceiba TBIL is not recommended. Blood urea nitrogen (BUN)/cr eatinine ratioOrdered By: Charo Swenson on 04-15-2024 Urea nitrogen/Creatinine [Mass ratio] 28.3 mg/mg High 10-20 [facility] CBC W/Diff, Automatedon 04-02 Absolute Lymph 1.57 X10 3/uL Normal 0.83-4.51 [facility] Comment on above: Performed By: #### L 501.9520, L500.4100, L502.0250, L500.4050, L100.0100, L506.1000, L3100.5000, L400.0001 #### [facility] [address] [place], [address] Absolute Neut 4.1 X10 3/uL Normal 2.0-7.7 [facility] Comment on above: Performed By: #### L 501.9520, L500.4100, L502.0250, L500.4050, L100.0100, L506.1000, L3100.5000, L400.0001 #### [facility] [address] [place], [address] Basophils/100 WBC (Bld) 0.6 % Normal 0-1 [facility] Comment on above: Performed By: #### L 501.9520, L500.4100, L502.0250, L500.4050, L100.0100, L506.1000, L3100.5000, L400.0001 #### [facility] [address] [place], [address] Eosinophils/100 WBC (Bld) 3.2 % Normal 0-5 [facility] Comment on above: Performed By: #### L 501.9520, L500.4100, L502.0250, L500.4050, L100.0100, L506.1000, L3100.5000, L400.0001 #### [facility] [address] [place], [address] Erythrocyte distribution width (RBC) [Ratio] 13.3 % Normal 11.6-14.6 [facility] Comment on above: Performed By: #### L 501.9520, L500.4100, L502.0250, L500.4050, L100.0100, L506.1000, L3100.5000, L400.0001 #### [facility] [address] [place], [address] Hematocrit (Bld) [Volume fraction] 41.4 % Normal 37-47 [facility] Comment on above: Performed By: #### L 501.9520, L500.4100, L502.0250, L500.4050, L100.0100, L506.1000, L3100.5000, L400.0001 #### [facility] [address] [place], [address] Hemoglobin (Bld) [Mass/Vol] 14.1 g/dL Normal 12.0-15.0 [facility] Comment on above: Performed By: #### L 501.9520, L500.4100, L502.0250, L500.4050, L100.0100, L506.1000, L3100.5000, L400.0001 #### [facility] [address] [place], [address] IG% 0.300 Normal 0.0-0.9 [facility] Comment on above: Result Comment: IG% - Immature Granulocytes (promyelocytes, myelocytes and metamyelocytes) > 1% indicates that a LEFT SHIFT is Present. Performed By: #### L 501.9520, L500.4100, L502.0250, L500.4050, L100.0100, L506.1000, L3100.5000, L400.0001 #### [facility] [address] [place], [address] Lymphocytes/100 WBC (Bld) 23.7 % Normal 19-41 [facility] Comment on above: Performed By: #### L 501.9520, L500.4100, L502.0250, L500.4050, L100.0100, L506.1000, L3100.5000, L400.0001 #### [facility] [address] [facility] [place], [address] MCH (RBC) [Entitic mass] 31.3 pg Normal 27.0-32.0 [facility] Comment on above: Performed By: #### L 501.9520, L500.4100, L502.0250, L500.4050, L100.0100, L506.1000, L3100.5000, L400.0001 #### [facility] [address] [facility] [place], [address] MCHC (RBC) [Mass/Vol] 34.1 g/dL Normal 32-36 [facility] Comment on above: Performed By: #### L 501.9520, L500.4100, L502.0250, L500.4050, L100.0100, L506.1000, L3100.5000, L400.0001 #### [facility] [address] [place], [address] MCV (RBC) [Entitic vol] 92.0 fL Normal 81-99 [facility] Comment on above: Performed By: #### L 501.9520, L500.4100, L502.0250, L500.4050, L100.0100, L506.1000, L3100.5000, L400.0001 #### [facility] [address] [place], [address] Monocytes/100 WBC (Bld) 10.0 % Normal 0-10 [facility] Comment on above: Performed By: #### L 501.9520, L500.4100, L502.0250, L500.4050, L100.0100, L506.1000, L3100.5000, L400.0001 #### [facility] [address] [place], [address] Neutrophils/100 WBC (Bld) 62.2 % Normal 47-70 [facility] Comment on above: Performed By: #### L 501.9520, L500.4100, L502.0250, L500.4050, L100.0100, L506.1000, L3100.5000, L400.0001 #### [facility] [address] [place], [address] Nucleated RBC (Bld) [#/Vol] 0 10*3/uL Normal 0-5 [facility] Comment on above: Performed By: #### L 501.9520, L500.4100, L502.0250, L500.4050, L100.0100, L506.1000, L3100.5000, L400.0001 #### [facility] [address] [place], [address] Platelet mean volume (Bld) [Entitic vol] 8.8 fL Normal 6.2-12.0 [facility] Comment on above: Performed By: #### L 501.9520, L500.4100, L502.0250, L500.4050, L100.0100, L506.1000, L3100.5000, L400.0001 #### [facility] [address] [place], [address] Platelets (Bld) [#/Vol] 311 10*3/uL Normal 150-450 [facility] Comment on above: Performed By: #### L 501.9520, L500.4100, L502.0250, L500.4050, L100.0100, L506.1000, L3100.5000, L400.0001 #### [facility] [address] [place], [address] RBC (Bld) [#/Vol] 4.50 10*6/uL Normal 4.2-5.4 [facility] Comment on above: Performed By: #### L 501.9520, L500.4100, L502.0250, L500.4050, L100.0100, L506.1000, L3100.5000, L400.0001 #### [facility] [address] [place], [address] RDW SD 45.0 fl High 35.1-43.9 [facility] Comment on above: Performed By: #### L 501.9520, L500.4100, L502.0250, L500.4050, L100.0100, L506.1000, L3100.5000, L400.0001 #### [facility] [address] [place], [address] WBC (Bld) [#/Vol] 6.6 10*3/uL Normal 4.4-11.0 [facility] Comment on above: Performed By: #### L 501.9520, L500.4100, L502.0250, L500.4050, L100.0100, L506.1000, L3100.5000, L400.0001 #### [facility] [address] [place], [address] Cancer antigen 125 (CA-125) measurementOrdered By: Charo Swenson on 04-15-2024 CA 125 Antigen 13.2 U/mL 0.0-38.1 [facility] Comment on above: [employer] ectrochemiluminescence Immunoassay(ECLIA)Values obtained with different assay methods or kits cannotbe used interchangeably. Results cannot be interpreted asabsolute evidence of the presence or absence of malignantdisease.Performed at: [address] [id number] Director: Jeffry Christensen PhD, Phone: [phone] Carbon dioxide measurementOr dered By: Charo Swenson on 04-15-2024 CO2 [Moles/Vol] 28.0 mmol/L 21.0-32.0 [facility] Chloride measurementOrdered By: Charo Swenson on 04-15-2024 Chloride [Moles/Vol] 107 mmol/L 98-107 [facility] Comprehensive Metabolic Prof ilon 04-15-2024 Albumin [Mass/Vol] 3.7 g/dL Normal 3.2-5.0 [facility] Comment on above: Performed By: #### L 501.9520, L500.4100, L502.0250, L500.4050, L100.0100, L506.1000, L3100.5000, L400.0001 ####[facility] [address] [place], [address] Albumin/Globulin [Mass ratio] 1.0 {ratio} Normal 0.9-2.4 [facility] Comment on above: Performed By: #### L 501.9520, L500.4100, L502.0250, L500.4050, L100.0100, L506.1000, L3100.5000, L400.0001 ####[facility] [address] [place], [address] ALK P 76 U/L Normal 45-117 [facility] Comment on above: Performed By: #### L 501.9520, L500.4100, L502.0250, L500.4050, L100.0100, L506.1000, L3100.5000, L400.0001 ####[facility] [address] [place], [address] ALT [Catalytic activity/Vol] 57 U/L High 13-56 [facility] [facility] Comment on above: Performed By: #### L 501.9520, L500.4100, L502.0250, L500.4050, L100.0100, L506.1000, L3100.5000, L400.0001 ####[facility] [address] [place], [address] AST [Catalytic activity/Vol] 25 U/L Normal 15-37 [facility] Comment on above: Performed By: #### L 501.9520, L500.4100, L502.0250, L500.4050, L100.0100, L506.1000, L3100.5000, L400.0001 ####[facility] [address] [place], [address] Bilirubin [Mass/Vol] 0.50 mg/dL Normal 0.20-1.00 [facility] Comment on above: Result Comment: For patients on eltrombopag therapy, use of Dimension Ceiba TBIL is not recommended. Performed By: #### L 501.9520, L500.4100, L502.0250, L500.4050, L100.0100, L506.1000, L3100.5000, L400.0001 ####[facility] [address] [place], [address] BUN/CRE 28.3 RATIO High 10-20 [facility] Comment on above: Performed By: #### L 501.9520, L500.4100, L502.0250, L500.4050, L100.0100, L506.1000, L3100.5000, L400.0001 ####[facility] [address] [place], [address] CA,Total 9.1 mg/dL Normal 8.5-10.1 [facility] Comment on above: Performed By: #### L 501.9520, L500.4100, L502.0250, L500.4050, L100.0100, L506.1000, L3100.5000, L400.0001 ####[facility] [address] [place], [address] Chloride [Moles/Vol] 107 mmol/L Normal 98-107 [facility] Comment on above: Performed By: #### L 501.9520, L500.4100, L502.0250, L500.4050, L100.0100, L506.1000, L3100.5000, L400.0001 ####[facility] [address] [place], [address] CO2 [Moles/Vol] 28.0 mmol/L Normal 21.0-32.0 [facility] Comment on above: Performed By: #### L 501.9520, L500.4100, L502.0250, L500.4050, L100.0100, L506.1000, L3100.5000, L400.0001 ####[facility] [address] [place], [address] Creatinine [Mass/Vol] 0.85 mg/dL Normal 0.55-1.02 [facility] Comment on above: Result Comment: The validity of the calculated GFR GFRAA in patients over 70 years has not been determined. Clinical correlation is essential. Performed By: #### L 501.9520, L500.4100, L502.0250, L500.4050, L100.0100, L506.1000, L3100.5000, L400.0001 ####[facility] [address] [place], [address] EST GFR - AA 87 mL/min Normal >60 [facility] Comment on above: Result Comment: Afri can Tanzanian GFR Calc Performed By: #### L 501.9520, L500.4100, L502.0250, L500.4050, L100.0100, L506.1000, L3100.5000, L400.0001 ####[facility] [address] [place], [address] GAP 5 Normal 5-15 [facility] Comment on above: Performed By: #### L 501.9520, L500.4100, L502.0250, L500.4050, L100.0100, L506.1000, L3100.5000, L400.0001 ####[facility] [address] [place], [address] GFR/1.73 sq M.predicted among non-blacks MDRD (S/P/Bld) [Vol rate/Area] 72 mL/min/{1.73_m2} Normal >60 [facility] Comment on above: Result Comment: Non- GFR Calc Performed By: #### L 501.9520, L500.4100, L502.0250, L500.4050, L100.0100, L506.1000, L3100.5000, L400.0001 ####[facility] [address] [place], [address] Globulin (S) [Mass/Vol] 3.7 g/dL Normal 2.2-4.2 [facility] Comment on above: Performed By: #### L 501.9520, L500.4100, L502.0250, L500.4050, L100.0100, L506.1000, L3100.5000, L400.0001 ####[facility] [address] [place], [address] Glucose [Mass/Vol] 114 mg/dL High 74-106 [facility] Comment on above: Result Comment: Fast ing Glucose result from 100 to 125 mg/dL suggests IMPAIRED HOMEOSTASIS per A.D.A. criteria. Performed By: #### L 501.9520, L500.4100, L502.0250, L500.4050, L100.0100, L506.1000, L3100.5000, L400.0001 ####[facility] [address] [place], [address] Potassium [Moles/Vol] 4.0 mmol/L Normal 3.5-5.1 [facility] Comment on above: Performed By: #### L 501.9520, L500.4100, L502.0250, L500.4050, L100.0100, L506.1000, L3100.5000, L400.0001 ####[facility] [address] [place], [address] Sodium [Moles/Vol] 140 mmol/L Normal 136-145 [facility] Comment on above: Performed By: #### L 501.9520, L500.4100, L502.0250, L500.4050, L100.0100, L506.1000, L3100.5000, L400.0001 ####[facility] [address] [place], [address] T PROT 7.4 g/dL Normal 6.4-8.2 [facility] Comment on above: Performed By: #### L 501.9520, L500.4100, L502.0250, L500.4050, L100.0100, L506.1000, L3100.5000, L400.0001 ####[facility] [address] [place], [address] Urea nitrogen [Mass/Vol] 24 mg/dL High 7-18 [facility] Comment on above: Performed By: #### L 501.9520, L500.4100, L502.0250, L500.4050, L100.0100, L506.1000, L3100.5000, L400.0001 ####[facility] [address] [place], [address] Eosinophil percentageOrdered By: Charo Swenson on 04-15-2024 Eosinophils/100 WBC (Bld) 3.2 % 0-5 [facility] Epithelial cells.squamous LM Ql (Urine sed)Ordered By: Charo Swenson on 04-15-2024 Epithelial cells.squamous LM.HPF (Urine sed) [#/Area] 0 /[HPF] 5-10 [facility] Erythrocyte distribution wid th ratioOrdered By: Charo Swenson on 04-15-2024 Erythrocyte distribution width (RBC) [Ratio] 13.3 % 11.6-14.6 [facility] Erythrocyte distribution wid th standard deviationOrdered By: Charo Swenson on 04-15-2024 Erythrocyte distribution width (RBC) [Entitic vol] 45.0 fL High 35.1-43.9 [facility] Estimated glomerular filtrat ion rate (GFR) AmericanOrdered By: Charo Swenson on 04-15-2024 Estimated GFR (MDRD) Amer 87 mL/min >60 [facility] Comment on above: GFR Calc Glomerular filtration rate ( GFR) estimationOrdered By: Charo Swenson on 04-15-2024 Estimated GFR (MDRD) Non-Af Amer 72 mL/min >60 [facility] Comment on above: Non- GFR Calc Glucose Ql (U)Ordered By: Devan Swenson on 04-15-2024 Urine Glucose (UA) Normal mg/dl Normal [facility] Glucose measurementOrdered B y: Charo Swenson on 04-15-2024 Glucose [Mass/Vol] 114 mg/dL High 74-106 [facility] Comment on above: Fasting Glucose resu lt from 100 to 125 mg/dL suggests IMPAIRED HOMEOSTASIS per A.D.A. criteria. Hematocrit Auto (Bld) [Volum e fraction]Ordered By: Charo Swneson on 04-15-2024 Hematocrit (Bld) [Volume fraction] 41.4 % 37-47 [facility] Hemoglobin measurementOrdere d By: Charo Swenson on 04-15-2024 Hemoglobin (Bld) [Mass/Vol] 14.1 g/dL 12.0-15.0 [facility] High density lipoprotein (HD L) measurementOrdered By: Charo Swenson on 04-15-2024 Cholesterol in HDL [Mass/Vol] 67 mg/dL >40 [facility] Comment on above: The drugs N-Acetylcy steine and Metamizole may falsely depress this assay. Reference Range HDL <40 mg/dL Low HDL Cholesterol HDL >or= 60 mg/dL High HDL Cholesterol Immature granulocytes/100 WB C Auto (Bld)Ordered By: Charo Swenson on 04-15-2024 Immature granulocytes/100 WBC (Bld) 0.300 % 0.0-0.9 [facility] Comment on above: IG% - Immature Granu locytes (promyelocytes, myelocytes and metamyelocytes) > 1% indicates that a LEFT SHIFT is Present. Ketones Test strip Ql (U)Ord ered By: Charo Velizon on 04-15-2024 Ketones Ql (U) Negative Negative [facility] Laboratory - Chemistry and C hemistry - challengeOrdered By: Charo Swenson on 04-15-2024 AST [Catalytic activity/Vol] 25 U/L 15- [facility] Lipid Profileon 04-15-2024 Cholesterol [Mass/Vol] 250 mg/dL High 200 [facility] Comment on above: Result Comment: <200 mg/dL Desirable 200-240 mg/dL Borderline >240 mg/dL High Risk Performed By: #### L 501.9520, L500.4100, L502.0250, L500.4050, L100.0100, L506.1000, L3100.5000, L400.0001 ####[facility] [address] [facility] [place], [address] Cholesterol in HDL [Mass/Vol] 67 mg/dL Normal [facility] Comment on above: Result Comment: The drugs N-Acetylcysteine and Metamizole may falsely depress this assay. Reference Range HDL <40 mg/dL Low HDL Cholesterol HDL >or= 60 mg/dL High HDL Cholesterol Performed By: #### L 501.9520, L500.4100, L502.0250, L500.4050, L100.0100, L506.1000, L3100.5000, L400.0001 ####[facility] [address] [place], [address] Cholesterol in LDL [Mass/Vol] 156 mg/dL High 0-130 [facility] Comment on above: Performed By: #### L 501.9520, L500.4100, L502.0250, L500.4050, L100.0100, L506.1000, L3100.5000, L400.0001 ####[facility] [address] [place], [place], [phone]) Cholesterol in VLDL [Mass/Vol] 27 mg/dL Normal 5-40 [facility] Comment on above: Performed By: #### L 501.9520, L500.4100, L502.0250, L500.4050, L100.0100, L506.1000, L3100.5000, L400.0001 ####[facility] [address] [place], [address] Triglyceride [Mass/Vol] 133 mg/dL Normal [facility] Comment on above: Result Comment: The drugs N-Acetylcysteine and Metamizole may falsely depress this assay. Serum Triglycerides Reference Interval Normal <150 mg/dL Borderline high 150 - 199 mg/dL High 200 - 499 mg/dL Very High > or = 500 mg/dL Performed By: #### L 501.9520, L500.4100, L502.0250, L500.4050, L100.0100, L506.1000, L3100.5000, L400.0001 ####[facility] [address] [place], [place], [phone]) Low density lipoprotein (LDL ) cholesterol measurementOrdered By: Charo Swenson on 04-15-2024 Cholesterol in LDL [Mass/Vol] 156 mg/dL High 0-130 [facility] Lymphocytes Auto (Unsp spec) [#/Vol]Ordered By: Charo Swenson on 04-15-2024 Lymphocytes (Bld) [#/Vol] 1.57 10*3/uL 0.83-4.51 [facility] Lymphocytes/100 WBC Auto (Un sp spec)Ordered By: Charo Swenson on 04-15-2024 Lymphocytes/100 WBC (Bld) 23.7 % 19-41 [facility] MCV (mean corpuscular volume ) determinationOrdered By: Charo Swenson on 04-15-2024 MCV (RBC) [Entitic vol] 92.0 fL 81-99 [facility] Mean corpuscular hemoglobin (MCH) determinationOrdered By: Charo Swenson on 04-15-2024 MCH (RBC) [Entitic mass] 31.3 pg 27.0-32.0 [facility] Mean corpuscular hemoglobin concentration (MCHC) determinationOrdered By: Charo Swenson on 04-15-2024 MCHC (RBC) [Mass/Vol] 34.1 g/dL 32-36 [facility] Mean platelet volume determi nationOrdered By: Charo Swenson on 04-15-2024 Platelet mean volume (Bld) [Entitic vol] 8.8 fL 6.2-12.0 [facility] Microalb:Creat Ratio,Random URon 04-15-2024 Creatinine [Mass/Vol] 70.90 mg/dL Normal NO RAN GE EST. [facility] Comment on above: Performed By: #### L 501.9520, L500.4100, L502.0250, L500.4050, L100.0100, L506.1000, L3100.5000, L400.0001 ####[facility] [address] [place], [address] MALB:CRE TNP Normal <30 mg/g CRE [facility] Comment on above: Performed By: #### L 501.9520, L500.4100, L502.0250, L500.4050, L100.0100, L506.1000, L3100.5000, L400.0001 ####[facility] [address] [place], [place], [phone] MICROALBUMIN,UR < 5.0 Normal NO RANGE EST. [facility] Comment on above: Performed By: #### L 501.9520, L500.4100, L502.0250, L500.4050, L100.0100, L506.1000, L3100.5000, L400.0001 ####[facility] [address] [place], [place], [phone] Microscopic analysis of urin e for red blood cells (RBC)Ordered By: Charo Swenson on 04-15-2024 Urine RBC 0 SEEN /hpf 0-5 [facility] Monocyte percentageOrdered B y: Charo Swenson on 04-15-2024 Monocytes/100 WBC (Bld) 10.0 % 0-10 [facility] Mucus LM Ql (Urine sed)Order ed By: Charo Swenson on 04-15-2024 Mucus Ql (Urine sed) 0 SEEN /hpf [facility] Neutrophil percentageOrdered By: Charo Swenson on 04-15-2024 Neutrophils/100 WBC (Bld) 62.2 % 47-70 [facility] Nitrite Test strip Ql (U)Ord ered By: Charo Swenson on 04-15-2024 Nitrite Ql (U) Negative Negative [facility] Nucleated red blood cell per centageOrdered By: Charo Swenson on 04-15-2024 Nucleated RBC/100 WBC (Bld) [Ratio] 0 % 0-5 [facility] Platelet countOrdered By: Devan Swenson on 04-15-2024 Platelets (Bld) [#/Vol] 311 10*3/uL 150-450 [facility] Potassium measurementOrdered By: Charo Swenson on 04-15-2024 Potassium [Moles/Vol] 4.0 mmol/L 3.5-5.1 [facility] Protein Test strip Ql (U)Ord ered By: Charo Swenson on 04-15-2024 Protein Ql (U) Negative Negative [facility] RBC Auto (Bld) [#/Vol]Ordere d By: Charo Swenson on 04-15-2024 RBC (Bld) [#/Vol] 4.50 10*6/uL 4.2-5.4 [facility] Random urine microalbumin me asurementOrdered By: Charo Swenson on 04-15-2024 Urine Random Microalbumin < 5.0 mg/L NO RANGE EST. [facility] Serum anion gap measurementO rdered By: Charo Swenson on 04-15-2024 Anion gap [Moles/Vol] 5 mmol/L 5-15 [facility] Serum globulin measurementOr dered By: Charo Swenson on 04-15-2024 Globulin (S) [Mass/Vol] 3.7 g/dL 2.2-4.2 [facility] Serum or plasma alanine teran otransferase (ALT) measurementOrdered By: Charo Swenson on 04-15-2024 ALT [Catalytic activity/Vol] 57 U/L High 13-56 [facility] Serum or plasma albumin christa urement (mass/volume)Ordered By: Charo Swenson on 04-15-2024 Albumin [Mass/Vol] 3.7 g/dL 3.2-5.0 [facility] Serum or plasma alkaline marlen sphatase measurementOrdered By: Charo Swenson on 04-15-2024 ALP [Catalytic activity/Vol] 76 U/L 45-117 [facility] Serum or plasma calcium christa urement (mass/volume)Ordered By: hCaro Swenson on 04-15-2024 Calcium [Mass/Vol] 9.1 mg/dL 8.5-10.1 [facility] Serum or plasma cholesterol measurement (mass/volume)Ordered By: Charo Swenson on 04-15-2024 Cholesterol [Mass/Vol] 250 mg/dL High <200 [facility] Comment on above: <200 mg/dL Desirable 200-240 mg/dL Borderline >240 mg/dL High Risk Serum or plasma creatinine m easurement (mass/volume)Ordered By: Charo Swenson on 04-15-2024 Creatinine [Mass/Vol] 0.85 mg/dL 0.55-1.02 [facility] Comment on above: The validity of the calculated GFR & GFRAA in patients over 70 years has not been determined. Clinical correlation is essential. Serum or plasma urea nitroge n measurement (mass/volume)Ordered By: Charo Swenson on 04-15-2024 Urea nitrogen [Mass/Vol] 24 mg/dL High 7-18 [facility] Sodium levelOrdered By: Summer Swenson on 04-15-2024 Sodium [Moles/Vol] 140 mmol/L 136-145 [facility] TSH QnOrdered By: Charo bass on 04-15-2024 Thyroid Stimulating Hormone (TSH) 1.360 uIU/mL 0.358-3.[address] [facility] Thyroid Stim Hormone (TSH)on 11-14-2024 TSH 1.360 uIU/mL Normal 0.358-3.[address] [facility] Comment on above: Performed By: #### L 501.9520, L500.4100, L502.0250, L500.4050, L100.0100, L506.1000, L3100.5000, L400.0001 ####[facility] [address] [place], [place], [phone] Total proteinOrdered By: Theodora Swenson on 04-15-2024 Protein [Mass/Vol] 7.4 g/dL 6.4-8.2 [facility] Triglycerides measurementOrd ered By: Charo Swenson on 04-15-2024 Triglyceride [Mass/Vol] 133 mg/dL <199 [facility] Comment on above: The drugs N-Acetylcy steine and Metamizole may falsely depress this assay.Serum Triglycerides Reference Interval Normal <150 mg/dL Borderline high 150 - 199 mg/dL High 200 - 499 mg/dL Very High > or = 500 mg/dL Urinalysis, Completeon 04-15 BACTERIA RARE Normal None Seen [facility] Comment on above: Order Comment: CLEAN CATCH Performed By: #### L 501.9520, L500.4100, L502.0250, L500.4050, L100.0100, L506.1000, L3100.5000, L400.0001 ####[facility] [address] [place], [place], [phone] EPI,SQUAMOUS 0-5 SEEN Normal 5-10 [facility] Comment on above: Order Comment: CLEAN CATCH Performed By: #### L 501.9520, L500.4100, L502.0250, L500.4050, L100.0100, L506.1000, L3100.5000, L400.0001 ####[facility] [address] [place], [address] WBC 0-5 SEEN Normal 0-5 [facility] Comment on above: Order Comment: CLEAN CATCH Performed By: #### L 501.9520, L500.4100, L502.0250, L500.4050, L100.0100, L506.1000, L3100.5000, L400.0001 ####[facility] [address] [place], [place], [phone]) Mucus Ql (Urine sed) 0 SEEN Normal [facility] Comment on above: Order Comment: CLEAN CATCH Performed By: #### L 501.9520, L500.4100, L502.0250, L500.4050, L100.0100, L506.1000, L3100.5000, L400.0001 ####[facility] [address] [place], [address] RBC 0 SEEN Normal 0-5 [facility] Comment on above: Order Comment: CLEAN CATCH Performed By: #### L 501.9520, L500.4100, L502.0250, L500.4050, L100.0100, L506.1000, L3100.5000, L400.0001 ####[facility] [address] [place], [place], [address] Urine albumin/creatinine rat io for detection of microalbuminuriaOrdered By: Charo Swenson on 04-15-2024 Urine Microalbumin/Creatinine Ratio TNP [facility] Comment on above: Test not performed Urine blood detectionOrdered By: Charo Swenson on 04-15-2024 Urine Occult Blood Negative Negative [facility] Urine clarityOrdered By: Theodora Swenson on 04-15-2024 Clarity (U) Clear Clear [facility] Urine color determinationOrd ered By: Charo Swenson on 04-15-2024 Color (U) Yellow Yellow [facility] Urine creatinine measurement (mass/volume)Ordered By: Charo Swenson on 04-15-2024 Creatinine (U) [Mass/Vol] 70.90 mg/dL NO RANGE EST. [facility] Urine leukocyte esterase det ection by dipstickOrdered By: Charo Swenson on 04-15-2024 Leukocyte esterase Test strip Ql (U) Negative Negative [facility] Urine pHOrdered By: Charo Swenson on 04-15-2024 pH (U) 6.0 [pH] 5.0 - 8.0 [facility] Urine specific gravity measu rementOrdered By: Charosanna Swenson on 04-15-2024 Specific gravity (U) [Rel density] 1.015 1.002-1.[address] [facility] Urobilinogen Ql (U)Ordered B y: Charosanna Swenson on 04-15-2024 Urine Urobilinogen Normal mg/dl Normal [facility] Very low density lipoprotein (VLDL) cholesterol measurementOrdered By: Charo Swenson on 04-15-2024 VLDL Cholesterol 27 mg/dL 5-40 [facility] Vitamin D,25 Hydroxyon 04-15 Vitamin D 25-OH 31.1 ng/mL Normal [facility] Comment on above: Result Comment: Maureen min D 25(OH) Status Range Deficiency <20 ng/mL (50nmol/L) Insufficiency 20 - 30 ng/mL (50 - 75 nmol/L) Sufficiency 30 - 100 ng/mL (75 - 250 nmol/L) Toxicity >100 ng/mL (>250 nmol/L) Performed By: #### L 501.9520, L500.4100, L502.0250, L500.4050, L100.0100, L506.1000, L3100.5000, L400.0001 ####[facility] [address] [facility] [place], [address] White blood cell (WBC) count Ordered By: Charo Swenson on 04-15-2024 WBC (Bld) [#/Vol] 6.6 10*3/uL 4.4-11.0 [facility] White blood cell countOrdere d By: Charo Swenson on 04-15-2024 Urine WBC 0-5 SEEN /hpf 0-5 [facility] Chest PA and Lateralon 03-31 Chest PA and Lateral [facility] [address] [place], [place] [address] Chest PA and Lateral MR#: [id number] Acct: [id number] Name: KATHARINAWEST Rep #: [id number] : 1960 F 64 From: Vadim castro MD PCP: Dr. Charo Swenson DO Status: REG CLI Study: Chest PA and Lateral Date of Exam: 03/31/24 Exam# [id number] Ordering [place]: [place] [id number] STUDY: X-RAY CHEST REASON FOR EXAM: Female, 64 years old. COUGH TECHNIQUE: PA and lateral views of the chest. COMPARISON: Comparison is made with prior study dated August 19, 2022. FINDINGS: A right-sided Port-A-Cath is seen with the tip at the junction of the superior vena cava and right atrium. Hyperinflation. Scattered calcified granulomas. There is no demonstrated pleural abnormality. Normal size heart. Normal mediastinum and nima. Normal visualized pulmonary arteries. Normal visualized aortic arch and descending thoracic aorta. There are degenerative changes of the visualized thoracic spine. Normal visualized ribs, clavicles, and shoulders. There is no demonstrated abnormality of the visualized soft tissue structures of the upper abdomen. RAD/Chest PA and Lateral IMPRESSION: Hyperinflation. No acute abnormality is seen. Electronically Signed: Vadim Wei MD at 15:23 EDT , CC: Dr. Charo Swenson DO Business Intelligence Analyst: Signed Normal [facility] Office Visit Reporton [address] [facility] [place] [address] OFFICE VISIT Date of Service: 03/25/24 MR#: [id number] Acct: [id number] Patient: WEST POSADAS Rep #: [id number] : 1960 Provider: ALLIE Mercedes Age/Sex: 64/F Location[place] [facility] Status: Signed with Addenda ADDENDUM by KELVIN Farias on 12/30/24 at 0937 [facility] Billing Sheet Covid Covid Swab-Rapid: Yes 12/30/24 0943 Date Alexandru Hugo cc: * Signed 03/26/24 1320 Date Alexandru KELLEY Cosigner Signature: Date (if applicable) CC: Normal [facility] Office Visit Reporton [address] [facility] [address] [place] [address] OFFICE VISIT Date of Service: 03/25/24 MR#: [id number] Acct: [id number] Patient: WEST POSADAS Rep #: [id number] : 1960 Provider: ALLIE Mercedes Age/Sex: 64/F Location[place] [facility] Status: Signed Employer Purchased Covid Test Note: Patient here today for Covid Testing, requested by their Employer. Assessment and Plan Assessment and Plan Orders: Orders POC Cepheid Covid, FluAB, RSV Today Medications: New azithromycin take 500 mg today (day 1), then 250 mg for 4 days (days 2-5) PO 6 tabs 0RF methylprednisolone (Medrol (Tori)) 4 mg PO PER PKG DIR 21 tabs 0RF 6 days albuterol sulfate 90 mcg/actuation 2 puffs inhalation Q6H PRN 8.5 grams 0RF shortness of breath or wheezing benzonatate 200 mg (2 x 100 mg) PO TID PRN 30 caps 0RF cough Plan Details Goals Barriers: Goals Decrease inflammation and pain Decrease spasm Increase ability to work with less pain Barriers Disc bulge 03/25/24 0851 Date Alexandru Riosigndallas Signature: Date (if applicable) CC: Normal [facility] Urgent Care Visit Reporton 1 Urgent Care Visit Report [facility] [address], [address] [place] [address] OFFICE VISIT Date of Service: 03/25/24 MR#: [id number] Acct: [id number] Name: WEST POSADAS Rep #: [id number] : 1960 Provider: ALLIE Mercedes Age/Sex: 64/F Location: [facility] Status: Signed Intake Vital Signs 01/12/24 08:01 03/25/24 07:48 Height 5 ft 7 in BP 132/70 H Blood Pressure Location Lt brachial Position Sitting Respiration 15 Pulse 76 Pulse Source NIBP Temp 98.6 F Temp Source Oral Pulse Oximetry (%) 97 Oxygen Delivery Method room air Intake Visit Reasons: WHEEZING, CONGESTION, COUGH Chief Complaint: cough, congestin, wheeze 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 Is patient in pain?: No Allergies midazolam (From Versed) Allergy (Verified 03/25/24 07:56) hypotensive codeine Adverse Reaction (Verified 03/25/24 07:56) Vomiting erythromycin base Adverse Reaction (Verified 03/25/24 07:56) Vomiting Medications ???Medication ???Instructions ???Recorded ???Confirmed ???Type hydrochlorothiazide 25 mg tablet 25 mg PO DAILY 02/25/19 01/20/24 History meloxicam 7.5 mg tablet 7.5 mg PO DAILY pain 02/25/19 01/20/24 History multivitamin 1 ea PO DAILY 02/25/19 01/20/24 History diltiazem HCl 240 mg 240 mg PO DAILY 12/18/21 01/20/24 History capsule,extended release 24 hr gabapentin 300 mg capsule 300 mg PO QHS 12/18/21 01/20/24 History loratadine 10 mg tablet (Claritin) 10 mg PO DAILY 12/18/21 01/20/24 History melatonin 10 mg capsule 10 mg PO HS PRN 12/18/21 01/20/24 History albuterol sulfate 90 mcg/actuation 2 puff inhalation Q6H PRN 03/25/24 03/25/24 Rx aerosol inhaler shortness of breath or wheezing #8.5 grams azithromycin 250 mg tablet See Rx Instructions PO .COMPLEX #6 03/25/24 03/25/24 Rx tabs benzonatate 100 mg capsule 200 mg (2 x 100 mg) PO TID PRN 03/25/24 03/25/24 Rx cough #30 caps methylprednisolone 4 mg tablets in 4 mg PO PER PKG DIR 6 days #21 tabs 03/25/24 03/25/24 Rx a dose pack (Medrol (Tori)) Is last menstrual period known: No Post menopausal: Yes Patient : No Have you fallen in the past year?: No Nurse's Note: cough with clear/yellow mucus, congestion, audible expiratory wheeze x 10 days. denies fever, QUIÑONES, ST. PFSH Medical History Acute bronchitis, unspecified Contact with and (suspected) exposure to other viral communicable diseases Non-smoker Endometrial cancer Diarrhea Migraines HTN (hypertension) Surgical History History of total abdominal hysterectomy History of cholecystectomy History of appendectomy Family History Mother Arthritis Migraine Father CAD (coronary artery disease) Hx of CABG Arthritis Social History Smoking Status: Never smoker alcohol intake: never HPI HPI Chief Complaint: cough, congestin, wheeze Details: [place], is a 64 F who presents to the office today for complaint of cough, congestion and small amount of wheezing for the past 6 days. Patient denies fever, chills, sweats. No nausea, vomiting, diarrhea. No hemoptysis, shortness of breath or difficult breathing. No loss of taste or smell. No other associated symptoms or alleviating/aggravating factors. ROS Const Constitutional: No other (As above) Exam Const General: cooperative and well developed HENAK Head: normal to inspection and atraumatic Ears: hearing grossly normal bilaterally Nose: nasal discharge clear Face and sinus: normal facial exam Mouth: oral mucosae normal Throat: abnormal tonsil bilaterally hypertrophy 1+ Resp Effort Inspection: normal respiratory effort Auscultation: Bilateral: Inspiratory Wheezes Cardio Rate: regular rate Rhythm: regular rhythm Neuro General: patient alert Psych Appearance: grossly normal Mental Status: mental status grossly normal Results POC CEPH COV,FluAB,RSV PCR CEPHEID COVID PCR Not DETECTED Last Edit by Vlaerie Huynh on 03/25/24 08:32 CEPHEID FLU AB PCR NOT DETECTED FLU A B Last Edit by Valerie Huynh on 03/25/24 08:32 CEPHEID RSV PCR NOT DETECTED Last Edit by Valerie Huynh on 03/25/24 08:32 Coding Level of Care Code Off vis,est,level 3 Diagnoses Acute bronchitis, unspecified J20.9 Contact with and (suspected) exposure to other viral communicable diseases Z20.828 Assessment and Plan Assessment and Plan (1) Acute bronchitis, unspecified: Status: Acute (2) Contact with and (suspected) exposure to other viral communicable diseases: Status: Acute Orders: Orders POC Cepheid Covid, FluAB, RSV Today Medications: New azithromycin take 500 mg today (day 1 (more content not included)... Normal [facility] No Panel InformationOrdered By: Yong Leggett on 09-30-2023 CA 125 Antigen 8.3 U/mL 0.0-38.1 [facility] Comment on above: [facility] [employer] El ectrochemiluminescence Immunoassay(ECLIA)Values obtained with different assay methods or kits cannotbe used interchangeably. Results cannot be interpreted asabsolute evidence of the presence or absence of malignantdisease.Performed at: [address] [id number] Director: Jeffry Christensen PhD, Phone: [phone] Erythrocyte sedimentation ra teOrdered By: Charo Swenson on 03-26-2023 ESR (Bld) [Velocity] 17 mm/h 0-30 [facility] No Panel InformationOrdered By: Charo Swenson on 03-26-2023 Anti-Nuclear Antibody Screen Negative Negative [facility] Comment on above: Performed at: [employer] [facility] [address] [id number] Director: Jeffry Christensen PhD, Phone: [phone] Thyroid Stimulating Hormone (TSH) 1.10 uIU/mL 0.358-3.74 [facility] Vitamin D 25-Hydroxy 45.2 ng/mL [facility] Comment on above: Vitamin D 25(OH) Sta tus Range Deficiency <20 ng/mL (50nmol/L) Insufficiency 20 - 30 ng/mL (50 - 75 nmol/L) Sufficiency 30 - 100 ng/mL (75 - 250 nmol/L) Toxicity >100 ng/mL (>250 nmol/L) Serum cyclic citrullinated p eptide IgG antibody assay (units/volume)Ordered By: Charo Swenson on 03-26-2023 Cyclic citrullinated peptide IgG Qn 1 units 0-19 [facility] Comment on above: Negative <20 Weak po sitive 20 - 39 Moderate positive 40 - 59 Strong positive >59Performed at: [facility] [address] [id number] Director: Jeffry Christensen PhD, Phone: [phone] Serum or plasma C reactive p rotein measurement (mass/volume)Ordered By: Charo Swenson on 03-26-2023 CRP [Mass/Vol] 6.15 mg/L 0.0-3.0 [facility] Comment on above: C-Reactive Protein ( CRP) provides useful information for thediagnosis, therapy and monitoring of inflammatory processesand associated diseases. For the evaluation of Relative Riskfor Cardiovascular Disease, a High Sensitivity CRP (HSCRP)should be ordered. Serum rheumatoid factor dete ctionOrdered By: Charo Swenson on 03-26-2023 Rheumatoid factor Ql (S) < 10.0 IU/mL <15 [facility] Whole blood hemoglobin A1c/t otal hemoglobin ratio (mass fraction)Ordered By: Charo Swenson on 03-26-2023 HbA1c (Bld) [Mass fraction] 5.5 % 3.8-5.6 [facility] Comment on above: Normal < 5.7 % Predi abetic 5.7 - 6.4 % Diabetic >or= 6.5 % Please note range changes. Absolute lymphocyte countOrd ered By: HEALTH ASSESSMENT on 03-17-2023 Lymphocytes Auto (Unsp spec) [#/Vol] 1.58 10*3/uL 0.83-4.51 [facility] Absolute reticulocyte countO rdered By: HEALTH ASSESSMENT on 03-17-2023 Reticulocytes (Bld) [#/Vol] 0.00 10*3/uL 0-5 [facility] Basophil percentageOrdered B y: HEALTH ASSESSMENT on 03-17-2023 Basophil percentage 3.7 mg/dL 2.5-4.9 [facility] Bilirubin [Mass/Vol] 0.50 mg/dL 0.20-1.00 [facility] Comment on above: For patients on eltr ombopag therapy, use of Dimension Ceiba TBIL is not recommended. Chloride [Moles/Vol] 105 mmol/L 98-107 [facility] Cholesterol [Mass/Vol] 186 mg/dL <200 [facility] Comment on above: <200 mg/dL Desirable 200-240 mg/dL Borderline >240 mg/dL High Risk Glucose [Mass/Vol] 112 mg/dL 74-106 [facility] Comment on above: Fasting Glucose resu lt from 100 to 125 mg/dL suggests IMPAIRED HOMEOSTASIS per A.D.A. criteria. LDH [Catalytic activity/Vol] 212 U/L 84-246 [facility] Neutrophils (Bld) [#/Vol] 3.8 10*3/uL 2.0-7.7 [facility] Potassium [Moles/Vol] 3.6 mmol/L 3.5-5.1 [facility] Protein [Mass/Vol] 7.6 g/dL 6.4-8.2 [facility] Sodium [Moles/Vol] 139 mmol/L 136-145 [facility] Triglyceride [Mass/Vol] 141 mg/dL <199 [facility] Comment on above: The drugs N-Acetylcy steine and Metamizole may falsely depress this assay.Serum Triglycerides Reference Interval Normal <150 mg/dL Borderline high 150 - 199 mg/dL High 200 - 499 mg/dL Very High > or = 500 mg/dL WBC (Bld) [#/Vol] 6.3 10*3/uL 4.4-11.0 [facility] Blood erythrocytes count (nu mber/volume)Ordered By: HEALTH ASSESSMENT on 03-17-2023 RBC (Bld) [#/Vol] 4.31 10*6/uL 4.2-5.4 [facility] Blood hemoglobin measurement (mass/volume)Ordered By: HEALTH ASSESSMENT on 03-17-2023 Hemoglobin (Bld) [Mass/Vol] 13.0 g/dL 12.0-15.0 [facility] Blood platelet mean volumeOr dered By: HEALTH ASSESSMENT on 03-17-2023 Platelet mean volume (Bld) [Entitic vol] 9.2 fL 6.2-12.0 [facility] Determination of erythrocyte mean corpuscular volume (MCV)Ordered By: HEALTH ASSESSMENT on 03-17-2023 MCV (RBC) [Entitic vol] 90.7 fL 81-99 [facility] Direct bilirubinOrdered By: HEALTH ASSESSMENT on 03-17-2023 Bilirubin.direct [Mass/Vol] 0.16 mg/dL 0.00-0.30 [facility] Hematocrit Auto (Bld) [Volum e fraction]Ordered By: HEALTH ASSESSMENT on 03-17-2023 Hematocrit (Bld) [Volume fraction] 39.1 % 37-47 [facility] Laboratory - Chemistry and C hemistry - challengeOrdered By: HEALTH ASSESSMENT on 03-17-2023 ALP [Catalytic activity/Vol] 82 U/L 45-117 [facility] ALT [Catalytic activity/Vol] 52 U/L 13-56 [facility] Cholesterol.total/Pooja sterol in HDL [Mass ratio] 3.60 {ratio} [facility] CO2 [Moles/Vol] 24.0 mmol/L 21.0-32.0 [facility] Globulin (S) [Mass/Vol] 4.1 g/dL 2.2-4.2 [facility] Urea nitrogen/Creatinine [Mass ratio] 24.2 mg/mg 10-20 [facility] Laboratory - Hematology and Cell countsOrdered By: HEALTH ASSESSMENT on 03-17-2023 Erythrocyte distribution width (RBC) [Entitic vol] 43.4 fL 35.1-43.9 [facility] Erythrocyte distribution width (RBC) [Ratio] 13.0 % 11.6-14.6 [facility] MCH (RBC) [Entitic mass] 30.2 pg 27.0-32.0 [facility] Nucleated RBC/100 WBC (Bld) [Ratio] 0 % 0-5 [facility] MCHC Auto (RBC) [Mass/Vol]Or dered By: HEALTH ASSESSMENT on 03-17-2023 MCHC (RBC) [Mass/Vol] 33.2 g/dL 32-36 [facility] No Panel InformationOrdered By: HEALTH ASSESSMENT on 03-17-2023 Estimated GFR (MDRD) Amer 81 mL/min >60 [facility] Comment on above: GFR Calc Estimated GFR (MDRD) Non-Af Amer 67 mL/min >60 [facility] Comment on above: Non- GFR Calc No Panel InformationOrdered By: Radha Mina on 03-17-2023 CA 125 Antigen 6.9 U/mL 0.0-38.1 [facility] Comment on above: [facility] [employer] El ectrochemiluminescence Immunoassay(ECLIA)Values obtained with different assay methods or kits cannotbe used interchangeably. Results cannot be interpreted asabsolute evidence of the presence or absence of malignantdisease.Performed at: [facility] [employer] [id number] Director: Jeffry Christensen PhD, Phone: [phone] Platelets bldOrdered By: T[facility]OS [facility] ASSESSMENT on 03-17-2023 Platelets (Bld) [#/Vol] 323 10*3/uL 150-450 [facility] Segmented neutrophils/100 WB C Auto (Bld)Ordered By: HEALTH ASSESSMENT on 03-17-2023 Segmented neutrophils/100 WBC (Bld) 60.5 % 47-70 [facility] Serum or plasma albumin christa urement (mass/volume)Ordered By: HEALTH ASSESSMENT on 03-17-2023 Albumin [Mass/Vol] 3.5 g/dL 3.2-5.0 [facility] Serum or plasma albumin/glob ulin mass ratioOrdered By: HEALTH ASSESSMENT on 03-17-2023 Albumin/Globulin [Mass ratio] 0.9 {ratio} 0.9-2.4 [facility] Serum or plasma calcium christa urement (mass/volume)Ordered By: HEALTH ASSESSMENT on 03-17-2023 Calcium [Mass/Vol] 8.7 mg/dL 8.5-10.1 [facility] Serum or plasma cholesterol in HDL measurement (mass/volume)Ordered By: HEALTH ASSESSMENT on 03-17-2023 Cholesterol in HDL [Mass/Vol] 51 mg/dL >40 [facility] Comment on above: The drugs N-Acetylcy steine and Metamizole may falsely depress this assay. Reference Range HDL <40 mg/dL Low HDL Cholesterol HDL >or= 60 mg/dL High HDL Cholesterol Serum or plasma cholesterol in VLDL measurement (mass/volume)Ordered By: HEALTH ASSESSMENT on 03-17-2023 Cholesterol in VLDL [Mass/Vol] 28 mg/dL 5-40 [facility] Serum or plasma creatinine m easurement (mass/volume)Ordered By: HEALTH ASSESSMENT on 03-17-2023 Creatinine [Mass/Vol] 0.91 mg/dL 0.55-1.02 [facility] Comment on above: The validity of the calculated GFR & GFRAA in patients over 70 years has not been determined. Clinical correlation is essential. Serum or plasma low density lipoprotein (LDL) cholesterol measurement (mass/volume)Ordered By: HEALTH ASSESSMENT on 03-17-2023 Cholesterol in LDL [Mass/Vol] 107 mg/dL 0-130 [facility] Serum or plasma urea nitroge n measurement (mass/volume)Ordered By: HEALTH ASSESSMENT on 03-17-2023 Urea nitrogen [Mass/Vol] 22 mg/dL 7-18 [facility] Serum or plasma uric acid me asurement (mass/volume)Ordered By: HEALTH ASSESSMENT on 03-17-2023 Urate [Mass/Vol] 5.2 mg/dL 2.6-6.0 [facility] Comment on above: The drugs N-Acetylcy steine and Metamizole may falsely depress this assay. Thin prep Papanicolaou smear with manual screeningOrdered By: HEALTH ASSESSMENT on 03-17-2023 Thin prep Papanicolaou smear with manual screening 25 U/L 15-37 [facility] Thin prep Papanicolaou smear with manual screening 10 5-15 [facility] Basophil percentageOrdered B y: Sareena Mina on 2023 Basophil percentage < 0.9 mg/dL 0.55-1.02 [facility] No Panel InformationOrdered By: Radha Mina on 2023 Bedside Estimated GFR (eGFR) > 60.0000 mL/min >60 [facility] No Panel InformationOrdered By: Yong Leggett on 11-05-2022 CA 125 Antigen 6.7 U/mL 0.0-38.1 [facility] Comment on above: [employer] El ectrochemiluminescence Immunoassay(ECLIA)Values obtained with different assay methods or kits cannotbe used interchangeably. Results cannot be interpreted asabsolute evidence of the presence or absence of malignantdisease.Performed at: [facility] [address] [id number] Director: Jeffry Christensen PhD, Phone: [phone] Laboratory - Microbiology an d Antimicrobial susceptibilityon 08-19-2022 SARS-CoV-2 (COVID-19) RNA KIRSTEN+probe Ql (Unsp spec) Not detected [facility] No Panel InformationOrdered By: Dr. Mian on 07-09-2022 CA 125 Antigen 6.6 U/mL 0.0-38.1 [facility] Comment on above: [email or web address] El ectrochemiluminescence Immunoassay(ECLIA)Values obtained with different assay methods or kits cannotbe used interchangeably. Results cannot be interpreted asabsolute evidence of the presence or absence of malignantdisease.Performed at: [facility] [address] [id number] Director: Jeffry Christensen PhD, Phone: [phone] Absolute lymphocyte countOrd ered By: HEALTH ASSESSMENT on 03-29-2022 Lymphocytes Auto (Unsp spec) [#/Vol] 1.40 10*3/uL 0.83-4.51 [facility] Absolute reticulocyte countO rdered By: HEALTH ASSESSMENT on 03-29-2022 Reticulocytes (Bld) [#/Vol] 0.00 10*3/uL 0-5 [facility] Basophil percentageOrdered B y: HEALTH ASSESSMENT on 03-29-2022 Basophil percentage 3.8 mg/dL 2.5-4.9 [facility] Bilirubin [Mass/Vol] 0.40 mg/dL 0.20-1.00 [facility] Comment on above: For patients on eltr ombopag therapy, use of Dimension Ceiba TBIL is not recommended. Chloride [Moles/Vol] 106 mmol/L 98-107 [facility] Cholesterol [Mass/Vol] 199 mg/dL <200 [facility] Comment on above: <200 mg/dL Desirable 200-240 mg/dL Borderline >240 mg/dL High Risk Glucose [Mass/Vol] 116 mg/dL 74-106 [facility] Comment on above: Fasting Glucose resu lt from 100 to 125 mg/dL suggests IMPAIRED HOMEOSTASIS per A.D.A. criteria. Neutrophils (Bld) [#/Vol] 4.4 10*3/uL 2.0-7.7 [facility] Potassium [Moles/Vol] 4.1 mmol/L 3.5-5.1 [facility] Protein [Mass/Vol] 8.2 g/dL 6.4-8.2 [facility] Sodium [Moles/Vol] 138 mmol/L 136-145 [facility] Triglyceride [Mass/Vol] 82 mg/dL <199 [facility] Comment on above: The drugs N-Acetylcy steine and Metamizole may falsely depress this assay.Serum Triglycerides Reference Interval Normal <150 mg/dL Borderline high 150 - 199 mg/dL High 200 - 499 mg/dL Very High > or = 500 mg/dL WBC (Bld) [#/Vol] 6.6 10*3/uL 4.4-11.0 [facility] Blood erythrocytes count (nu mber/volume)Ordered By: HEALTH ASSESSMENT on 03-29-2022 RBC (Bld) [#/Vol] 4.37 10*6/uL 4.2-5.4 [facility] Blood hemoglobin measurement (mass/volume)Ordered By: HEALTH ASSESSMENT on 03-29-2022 Hemoglobin (Bld) [Mass/Vol] 13.6 g/dL 12.0-15.0 [facility] Blood platelet mean volumeOr dered By: HEALTH ASSESSMENT on 03-29-2022 Platelet mean volume (Bld) [Entitic vol] 8.7 fL 6.2-12.0 [facility] Determination of erythrocyte mean corpuscular volume (MCV)Ordered By: HEALTH ASSESSMENT on 03-29-2022 MCV (RBC) [Entitic vol] 88.6 fL 81-99 [facility] Direct bilirubinOrdered By: HEALTH ASSESSMENT on 03-29-2022 Bilirubin.direct [Mass/Vol] 0.12 mg/dL 0.00-0.30 [facility] Hematocrit Auto (Bld) [Volum e fraction]Ordered By: HEALTH ASSESSMENT on 03-29-2022 Hematocrit (Bld) [Volume fraction] 38.7 % 37-47 [facility] Laboratory - Chemistry and C hemistry - challengeOrdered By: HEALTH ASSESSMENT on 03-29-2022 ALP [Catalytic activity/Vol] 69 U/L 45-117 [facility] ALT [Catalytic activity/Vol] 51 U/L 13-56 [facility] Cholesterol.total/Pooja sterol in HDL [Mass ratio] 3.90 {ratio} [facility] CO2 [Moles/Vol] 26.0 mmol/L 21.0-32.0 [facility] Globulin (S) [Mass/Vol] 4.1 g/dL 2.2-4.2 [facility] Urea nitrogen/Creatinine [Mass ratio] 27.7 mg/mg 10-20 [facility] Laboratory - Hematology and Cell countsOrdered By: HEALTH ASSESSMENT on 03-29-2022 Erythrocyte distribution width (RBC) [Entitic vol] 41.4 fL 35.1-43.9 [facility] Erythrocyte distribution width (RBC) [Ratio] 12.8 % 11.6-14.6 [facility] MCH (RBC) [Entitic mass] 31.1 pg 27.0-32.0 [facility] Nucleated RBC/100 WBC (Bld) [Ratio] 0 % 0-5 [facility] MCHC Auto (RBC) [Mass/Vol]Or dered By: HEALTH ASSESSMENT on 03-29-2022 MCHC (RBC) [Mass/Vol] 35.1 g/dL 32-36 [facility] No Panel InformationOrdered By: HEALTH ASSESSMENT on 03-29-2022 Estimated GFR (MDRD) Amer 81 mL/min >60 [facility] Comment on above: GFR Calc Estimated GFR (MDRD) Non-Af Amer 67 mL/min >60 [facility] Comment on above: Non- GFR Calc Platelets bldOrdered By: TACOS LTH ASSESSMENT on 03-29-2022 Platelets (Bld) [#/Vol] 304 10*3/uL 150-450 [facility] Segmented neutrophils/100 WB C Auto (Bld)Ordered By: HEALTH ASSESSMENT on 03-29-2022 Segmented neutrophils/100 WBC (Bld) 66.4 % 47-70 [facility] Serum or plasma albumin christa urement (mass/volume)Ordered By: HEALTH ASSESSMENT on 03-29-2022 Albumin [Mass/Vol] 4.1 g/dL 3.2-5.0 [facility] Serum or plasma albumin/glob ulin mass ratioOrdered By: HEALTH ASSESSMENT on 03-29-2022 Albumin/Globulin [Mass ratio] 1.0 {ratio} 0.9-2.4 [facility] Serum or plasma calcium christa urement (mass/volume)Ordered By: HEALTH ASSESSMENT on 03-29-2022 Calcium [Mass/Vol] 9.2 mg/dL 8.5-10.1 [facility] Serum or plasma cholesterol in HDL measurement (mass/volume)Ordered By: HEALTH ASSESSMENT on 03-29-2022 Cholesterol in HDL [Mass/Vol] 51 mg/dL >40 [facility] Comment on above: The drugs N-Acetylcy steine and Metamizole may falsely depress this assay. Reference Range HDL <40 mg/dL Low HDL Cholesterol HDL >or= 60 mg/dL High HDL Cholesterol Serum or plasma cholesterol in VLDL measurement (mass/volume)Ordered By: HEALTH ASSESSMENT on 03-29-2022 Cholesterol in VLDL [Mass/Vol] 16 mg/dL 5-40 [facility] Serum or plasma creatinine m easurement (mass/volume)Ordered By: HEALTH ASSESSMENT on 03-29-2022 Creatinine [Mass/Vol] 0.90 mg/dL 0.55-1.02 [facility] Comment on above: The validity of the calculated GFR & GFRAA in patients over 70 years has not been determined. Clinical correlation is essential. Serum or plasma low density lipoprotein (LDL) cholesterol measurement (mass/volume)Ordered By: HEALTH ASSESSMENT on 03-29-2022 Cholesterol in LDL [Mass/Vol] 132 mg/dL 0-130 [facility] Serum or plasma urea nitroge n measurement (mass/volume)Ordered By: HEALTH ASSESSMENT on 03-29-2022 Urea nitrogen [Mass/Vol] 25 mg/dL 7-18 [facility] Serum or plasma uric acid me asurement (mass/volume)Ordered By: HEALTH ASSESSMENT on 03-29-2022 Urate [Mass/Vol] 6.6 mg/dL 2.6-6.0 [facility] Comment on above: The drugs N-Acetylcy steine and Metamizole may falsely depress this assay. Thin prep Papanicolaou smear with manual screeningOrdered By: HEALTH ASSESSMENT on 03-29-2022 Thin prep Papanicolaou smear with manual screening 28 U/L 15-37 [facility] Thin prep Papanicolaou smear with manual screening 6 5-15 [facility] Thin prep Papanicolaou smear with manual screening 179 U/L 84-246 [facility] Whole blood hemoglobin A1c/t otal hemoglobin ratio (mass fraction)Ordered By: Dr. Swenson on 03-29-2022 HbA1c (Bld) [Mass fraction] 5.7 % 3.8-5.6 [facility] Comment on above: Normal < 5.7 % Predi abetic 5.7 - 6.4 % Diabetic >or= 6.5 % Please note range changes. No Panel Informationon 02-19 CA 125 Antigen 6.9 U/mL 0.0-38.1 [facility] Work Phone: Comment on above: [facility] [employer] El ectrochemiluminescence Immunoassay(ECLIA)Values obtained with different assay methods or kits cannotbe used interchangeably. Results cannot be interpreted asabsolute evidence of the presence or absence of malignantdisease.Performed at: [address] [id number] Director: Jeffry Christensen PhD, Phone: [phone] Laboratory - Microbiology an d Antimicrobial susceptibilityon 10-30-2021 SARS-CoV-2 (COVID-19) RNA KIRSTEN+probe Ql (Unsp spec) Detected [facility] Work Phone: No Panel Informationon 10-30 Influenza Types A,B Rapid (Clinic) Not detected [facility] Work Phone: Absolute lymphocyte counton 10-26-2021 Lymphocytes Auto (Unsp spec) [#/Vol] 2.22 10*3/uL 0.83-4.51 [facility] Work Phone: Basophil percentageon 2021 Basophil percentage 10-25 SEEN /hpf 0-5 [facility] Work Phone: Basophils/100 WBC (Bld) 0.4 % 0-1 [facility] Work Phone: Bilirubin [Mass/Vol] 0.30 mg/dL 0.20-1.00 [facility] Work Phone: Comment on above: For patients on eltr ombopag therapy, use of Dimension Ceiba TBIL is not recommended. Chloride [Moles/Vol] 104 mmol/L 98-107 [facility] Work Phone: Cholesterol [Mass/Vol] 196 mg/dL <200 [facility] Work Phone: Comment on above: <200 mg/dL Desirable 200-240 mg/dL Borderline >240 mg/dL High Risk Eosinophils/100 WBC (Bld) 1.8 % 0-5 [facility] Work Phone: Glucose [Mass/Vol] 114 mg/dL 74-106 [facility] Work Phone: Comment on above: Fasting Glucose resu lt from 100 to 125 mg/dL suggests IMPAIRED HOMEOSTASIS per A.D.A. criteria. Neutrophils (Bld) [#/Vol] 5.8 10*3/uL 2.0-7.7 [facility] Work Phone: Neutrophils/100 WBC (Bld) 64.2 % 47-70 [facility] Work Phone: Potassium [Moles/Vol] 3.4 mmol/L 3.5-5.1 [facility] Work Phone: Protein [Mass/Vol] 8.1 g/dL 6.4-8.2 [facility] Work Phone: Sodium [Moles/Vol] 138 mmol/L 136-145 [facility] Work Phone: Triglyceride [Mass/Vol] 241 mg/dL <199 [facility] Work Phone: Comment on above: The drugs N-Acetylcy steine and Metamizole may falsely depress this assay.Serum Triglycerides Reference Interval Normal <150 mg/dL Borderline high 150 - 199 mg/dL High 200 - 499 mg/dL Very High > or = 500 mg/dL WBC (Bld) [#/Vol] 9.1 10*3/uL 4.4-11.0 [facility] Work Phone: Bilirubin Test strip Ql (U)o n 10-26-2021 Bilirubin Ql (U) 1 mg/dL Negative [facility] Work Phone: Comment on above: COLOR OF URINE MAY A FFECT DIPSTICK RESULTS. Blood erythrocytes count (nu mber/volume)on 10-26-2021 RBC (Bld) [#/Vol] 4.24 10*6/uL 4.2-5.4 [facility] Work Phone: Blood hemoglobin measurement (mass/volume)on 10-26-2021 Hemoglobin (Bld) [Mass/Vol] 13.2 g/dL 12.0-15.0 [facility] Work Phone: Blood lymphocytes/100 leukoc yteson 10-26-2021 Lymphocytes/100 WBC (Bld) 24.4 % 19-41 [facility] Work Phone: Blood monocytes/100 leukocyt eson 10-26-2021 Monocytes/100 WBC (Bld) 8.8 % 0-10 [facility] Work Phone: Blood platelet mean volumeon 10-26-2021 Platelet mean volume (Bld) [Entitic vol] 9.1 fL 6.2-12.0 [facility] Work Phone: Determination of erythrocyte mean corpuscular volume (MCV)on 10-26-2021 MCV (RBC) [Entitic vol] 89.4 fL 81-99 [facility] Work Phone: Hematocrit Auto (Bld) [Volum e fraction]on 10-26-2021 Hematocrit (Bld) [Volume fraction] 37.9 % 37-47 [facility] Work Phone: Ketones Test strip Ql (U)on 10-26-2021 Ketones Ql (U) 5 mg/dl Negative [facility] Work Phone: Laboratory - Chemistry and C hemistry - challengeon 10-26-2021 ALP [Catalytic activity/Vol] 78 U/L 45-117 [facility] Work Phone: ALT [Catalytic activity/Vol] 42 U/L 13-56 [facility] Work Phone: CO2 [Moles/Vol] 26.0 mmol/L 21.0-32.0 [facility] Work Phone: Globulin (S) [Mass/Vol] 4.1 g/dL 2.2-4.2 W [facility] Work Phone: Urea nitrogen/Creatinine [Mass ratio] 27.2 mg/mg 10-20 [facility] Work Phone: Laboratory - Hematology and Cell countson 10-26-2021 Erythrocyte distribution width (RBC) [Entitic vol] 41.9 fL 35.1-43.9 [facility] Work Phone: Erythrocyte distribution width (RBC) [Ratio] 12.9 % 11.6-14.6 [facility] Work Phone: Immature granulocytes/100 WBC (Bld) 0.400 % 0.0-0.9 [facility] Work Phone: Comment on above: IG% - Immature Granu locytes (promyelocytes, myelocytes and metamyelocytes) > 1% indicates that a LEFT SHIFT is Present. MCH (RBC) [Entitic mass] 31.1 pg 27.0-32.0 [facility] Work Phone: Nucleated RBC/100 WBC (Bld) [Ratio] 0 % 0-5 [facility] Work Phone: MCHC Auto (RBC) [Mass/Vol]on 10-26-2021 MCHC (RBC) [Mass/Vol] 34.8 g/dL 32-36 [facility] Work Phone: Mucus LM Ql (Urine sed)on Mucus Ql (Urine sed) 2+ /[facility] Work Phone: Nitrite Test strip Ql (U)on 10-26-2021 Nitrite Ql (U) Negative Negative [facility] Work Phone: No Panel Informationon 10-26 [place] 125 Antigen 6.9 U/mL 0.0-38.1 [facility] Work Phone: Comment on above: [facility] El ectrochemiluminescence Immunoassay(ECLIA)Values obtained with different assay methods or kits cannotbe used interchangeably. Results cannot be interpreted asabsolute evidence of the presence or absence of malignantdisease.Performed at: [facility] [place] [id number] Director: Jeffry Christensen PhD, Phone: [phone] Estimated GFR (MDRD) Amer 76 mL/min >60 [facility] Work Phone: Comment on above: GFR Calc Estimated GFR (MDRD) Non-Af Amer 63 mL/min >60 [facility] Work Phone: Comment on above: Non- GFR Calc Thyroid Stimulating Hormone (TSH) 1.79 uIU/mL 0.358-3.74 [facility] Work Phone: Urine Microalbumin/Creatinine Ratio 9.0 mg/g CRE <30 [facility] Work Phone: Platelets bldon 10-26-2021 Platelets (Bld) [#/Vol] 331 10*3/uL 150-450 [facility] Work Phone: Protein Test strip Ql (U)on 10-26-2021 Protein Ql (U) 15 mg/dl Negative [facility] Work Phone: Serum or plasma albumin christa urement (mass/volume)on 10-26-2021 Albumin [Mass/Vol] 4.0 g/dL 3.2-5.0 [facility] Work Phone: Serum or plasma albumin/glob ulin mass ratioon 10-26-2021 Albumin/Globulin [Mass ratio] 1.0 {ratio} 0.9-2.4 [facility] Work Phone: Serum or plasma calcium christa urement (mass/volume)on 10-26-2021 Calcium [Mass/Vol] 8.8 mg/dL 8.5-10.1 [facility] Work Phone: Serum or plasma cholesterol in HDL measurement (mass/volume)on 10-26-2021 Cholesterol in HDL [Mass/Vol] 45 mg/dL >40 [facility] Work Phone: Comment on above: The drugs N-Acetylcy steine and Metamizole may falsely depress this assay. Reference Range HDL <40 mg/dL Low HDL Cholesterol HDL >or= 60 mg/dL High HDL Cholesterol Serum or plasma cholesterol in VLDL measurement (mass/volume)on 10-26-2021 Cholesterol in VLDL [Mass/Vol] 48 mg/dL 5-40 [facility] Work Phone: Serum or plasma creatinine m easurement (mass/volume)on 10-26-2021 Creatinine [Mass/Vol] 0.96 mg/dL 0.55-1.02 [facility] Work Phone: Comment on above: The validity of the calculated GFR & GFRAA in patients over 70 years has not been determined. Clinical correlation is essential. Serum or plasma low density lipoprotein (LDL) cholesterol measurement (mass/volume)on 10-26-2021 Cholesterol in LDL [Mass/Vol] 103 mg/dL 0-130 [facility] Work Phone: Serum or plasma urea nitroge n measurement (mass/volume)on 10-26-2021 Urea nitrogen [Mass/Vol] 26 mg/dL 7-18 [facility] Work Phone: Squamous epithelial cells de tection in urine sediment by light microscopyon 05-27-2022 Epithelial cells.squamous LM Ql (Urine sed) 5-10 SEEN /hpf 5-10 [facility] Work Phone: Thin prep Papanicolaou smear with manual screeningon 10-26-2021 Thin prep Papanicolaou smear with manual screening 22 U/L 15-37 [facility] Work Phone: Thin prep Papanicolaou smear with manual screening 8 5-15 [facility] Work Phone: Thin prep Papanicolaou smear with manual screening 27.0 mg/L NO RANGE EST. [facility] Work Phone: Urine blood detectionon 10-01 RBC Ql (U) 10 /ul Negative [facility] Work Phone: RBC Ql (U) 0-5 SEEN /hpf 0-5 [facility] Work Phone: Urine clarityon 10-26-2021 Clarity (U) Clear Clear [facility] Work Phone: Urine color determinationon 10-26-2021 Color (U) Yellow Yellow [facility] Work Phone: Urine creatinine measurement (mass/volume)on 10-26-2021 Creatinine (U) [Mass/Vol] 299.00 mg/dL NO RANGE EST. [facility] Work Phone: Urine glucose detectionon Glucose Ql (U) Normal mg/dl Normal [facility] Work Phone: Urine leukocyte esterase det ection by dipstickon 10-26-2021 Leukocyte esterase Test strip Ql (U) 500 /ul Negative [facility] Work Phone: Urine pHon 10-26-2021 pH (U) 5.0 [pH] 5.0 - 8.0 [facility] Work Phone: Urine sediment bacteria coun t by microscopy (number/high power field)on 10-26-2021 Bacteria LM.HPF (Urine sed) [#/Area] 1 /[HPF] None Seen [facility] Work Phone: Urine specific gravity measu rementon 10-26-2021 Specific gravity (U) [Rel density] 1.025 1.002-1.[address] [facility] Work Phone: Urobilinogen Auto test strip Ql (U)on 10-26-2021 Urobilinogen Ql (U) 1 mg/dl [facility]: Whole blood hemoglobin A1c/t otal hemoglobin ratio (mass fraction)on 10-26-2021 HbA1c (Bld) [Mass fraction] 5.7 % 3.8-5.6 [facility] Work Phone: Comment on above: Normal < 5.7 % Predi abetic 5.7 - 6.4 % Diabetic >or= 6.5 % Please note range changes. No Panel Informationon 07-04 [place] 125 Antigen 7.7 U/mL [facility] Work Phone: Comment on above: [facility] El ectrochemiluminescence Immunoassay(ECLIA)Values obtained with different assay methods or kits cannotbe used interchangeably. Results cannot be interpreted asabsolute evidence of the presence or absence of malignantdisease.Performed at: [place] [id number] Director: Jeffry Christensen PhD, Phone: [phone] CBC, EmployeeOrdered By: Oscar tem Assistant [employer] on 02-24-2018 Absolute Lymph 1.44 {X10_3/ul} Normal 0.83-4.51 Compr ehensive [facility] Work Phone: Absolute Neut 3.8 {X10_3/uL} Normal 2.0-7.7 Compreh ensive [facility] Work Phone: Basophils/100 WBC (Bld) 0.3 % Normal 0-1 C omprehensive [facility] Work Phone: Comment on above: [facility] sp[facility] [address] [place], [address] Basophils/100 WBC Auto (Bld) 0.3 % Normal 0-1 [facility] Work Phone: Eosinophils/100 WBC (Bld) 2.1 % Normal 0-5 [facility] Work Phone: Comment on above: [facility] [address] [place], [address] Eosinophils/100 WBC Auto (Bld) 2.1 % Normal 0-5 [facility] Work Phone: Erythrocyte distribution width Auto Ratio (RBC) 13.5 % Normal 11.6-14.6 [facility] Work Phone: Erythrocyte distribution width Ratio (RBC) 13.5 % Normal 11.6-14.6 [facility] Work Phone: Comment on above: [facility] [address] [place], [address] Hematocrit Auto Volume Fraction (Bld) 41.0 % Normal 37-47 [facility] Work Phone: Hematocrit Volume Fraction (Bld) 41.0 % Normal 37-47 [facility] Work Phone: Comment on above: [facility] [address] [place], [address] Hemoglobin mass conc (Bld) 13.9 g/dL Normal 12.0-15.0 [facility] Work Phone: Comment on above: [facility] [address] [place], [address] Lymphocytes/100 WBC (Bld) 23.4 % Normal 19-41 [facility] Work Phone: Comment on above: [facility] [address] [place], [address] Lymphocytes/100 WBC Auto (Bld) 23.4 % Normal 19-41 [facility] Work Phone: MCH Auto Entitic mass (RBC) 29.8 pg Normal 27.0-32.0 [facility] Work Phone: MCH Entitic mass (RBC) 29.8 pg Normal 27.0-32.0 Co m[facility] Work Phone: Comment on above: [facility] [address] [place], [place], [phone] MCHC Auto mass conc (RBC) 33.9 {g/gl} Normal 32-36 [facility] Work Phone: MCHC mass conc (RBC) 33.9 {g/gl} Normal 32-36 [facility] prehensive Internal Medicine Work Phone: Comment on above: [facility] [address] [place], [address] MCV Auto Entitic volume (RBC) 88.0 fL Normal 81-99 [facility] Work Phone: MCV Entitic volume (RBC) 88.0 fL Normal 81-99 [facility] Work Phone: Comment on above: [facility] [address] [place], [address] Monocytes/100 WBC Auto (Bld) 11.7 % Abnormal 0-10 [facility] Work Phone: Comment on above: [facility] [address] [place], [address] Neutrophils/100 WBC (Bld) 62.3 % Normal 47-70 [facility] Work Phone: Comment on above: [facility] [address] [place], [address] Neutrophils/100 WBC Auto (Bld) 62.3 % Normal 47-70 [facility] Work Phone: Platelet mean volume Auto Entitic volume (Bld) 8.8 fL Normal 6.2-12.0 [facility] Work Phone: Platelet mean volume Entitic volume (Bld) 8.8 fL Normal 6.2-12.0 Comprehensi [facility] Work Phone: Comment on above: [facility] [address] [place], [address] Platelets #/vol (Bld) 295 10*3/uL Normal 150-450 Co m[facility] Work Phone: Comment on above: [facility] [address] [place], [address] Platelets Auto #/vol (Bld) 295 10*3/uL Normal 150-450 [facility] Work Phone: RBC #/vol (Bld) 4.66 {M/mm3} Normal 4.2-5.4 Compreh ensive [facility] Work Phone: Comment on above: [facility] [address] [place], [address] RBC Auto #/vol (Bld) 4.66 {M/mm3} Normal 4.2-5.4 Co [facility] Work Phone: RDW SD 43.4 fL Normal 35.1-43.9 [facility] Work Phone: WBC #/vol (Bld) 6.2 10*3/uL Normal 4.4-11.0 Comprehe nsive [facility] Medicine Work Phone: Comment on above: [facility] [address] [place], [address] WBC Auto #/vol (Bld) 6.2 10*3/uL Normal 4.4-11.0 Com prehensive [facility] Work Phone: CBC, Employee 1.44 {X10_3/ul} Normal 0.83-4.51 Compre hensive [facility] Work Phone: Comment on above: [facility] [address] [place], [address] CBC, Employee 43.4 fL Normal 35.1-43.9 Comprehensi ve Internal Medicine Work Phone: Comment on above: [facility] [address] [place], [address] CBC, Employee 3.8 {X10_3/uL} Normal 2.0-7.7 Compreh ensive [facility] Work Phone: Comment on above: [facility] [address] [place], [place], [phone] Employee ProfileOrdered By: Cane Weigher Helper on 02-24-2018 A/G 0.9 {RATIO} Normal 0.9-2.4 [facility] Work Phone: Albumin mass conc 4.0 g/dL Normal 3.2-5.0 Compreh ensive [facility] Work Phone: Comment on above: [facility] [address] [place], [place], [phone] Albumin/Globulin mass ratio 0.9 {RATIO} Normal 0.9-2.4 [facility] Work Phone: Comment on above: [facility] [address] [place], [place], [phone] ALP enzyme act/vol 72 U/L Normal 45-117 Compre [facility] Work Phone: ALT enzyme act/vol 51 U/L Normal 13-56 Compre [facility] Work Phone: Comment on above: [facility] [address] [place], [place], [phone] AST enzyme act/vol 29 U/L Normal 15-37 Compre [facility] Work Phone: Comment on above: [facility] [address] [place], [place], [address] Bilirubin mass conc 0.50 mg/dL Normal 0.20-1.00 Compr [facility] Internal Medicine Work Phone: Comment on above: [facility] [address] [place], [place], [phone] Bilirubin.direct mass conc 0.14 mg/dL Normal 0.00-0.30 [facility] Work Phone: Comment on above: [facility] [address] [place], [place], [address] BUN/CRE 23.3 {RATIO} Abnormal 10-20 Comprehensiv e [facility] Work Phone: Calcium mass conc 8.4 mg/dL Abnormal 8.5-10.1 Compreh ensive [facility] Work Phone: Comment on above: [facility] [address] [place], [address] Chloride molar conc 105 mmol/L Normal 98-107 Compr ehensive [facility] Work Phone: Comment on above: [facility] [address] [place], [place], [phone] CHOL:HDL 3.90 1 Normal [facility] Work Phone: Cholesterol in HDL mass conc 48 mg/dL Normal [facility] Work Phone: Comment on above: The drugs N-Acetylcy steine and Metamizole may falselydepress this assay. Reference Range HDL <40 mg/dL Low HDL Cholesterol HDL >or= 60 mg/dL High HDL Cholesterol [facility] [address] [place], [place], [phone] Cholesterol in LDL mass conc 124 mg/dL Normal 0-130 [facility] Work Phone: Cholesterol in LDL mass conc 124 mg/dL Normal 0-130 [facility] Work Phone: Comment on above: [facility] [address] [place], [place], [phone] Cholesterol in VLDL mass conc 17 mg/dL Normal 5-40 [facility] Work Phone: Cholesterol mass conc 189 mg/dL Normal Com prehensive [facility] Work Phone: Comment on above: <200 mg/dL Desirable 200-240 mg/dL Borderline >240 mg/dL High Risk [facility] [address] [place], [address] CO2 molar conc 23.0 mmol/L Normal 21.0-32.0 Com[facility]hen [facility] Work Phone: Comment on above: [facility] [address] [place], [place], [phone] Creatinine mass conc 0.73 mg/dL Normal 0.55-1.02 Comp rehensive [facility] Work Phone: Comment on above: The validity of the calculated GFR AND GFRAA in patients over70 years has not been determined. Clinical correlation isessential. [facility] [address] [place], [address] EST GFR - AA 106 mL/min Normal Comprehensiv e [facility] Medicine Work Phone: Comment on above: GFR Calc GAP 9 1 Normal 5-15 [facility] Work Phone: GFR/1.73 sq M predicted among non-blacks MDRD vol rate/area (S/P/Bld) 88 mL/min/{1.73_m2} Normal [facility] Work Phone: Comment on above: Non- GFR Calc [facility] [address] [place], [place], [phone] Globulin Calculated mass conc (S) 4.4 g/dL Abnormal 2.2-4.2 [facility] Work Phone: Glucose mass conc 103 mg/dL Normal 74-106 Compreh ensive [facility] Work Phone: Comment on above: Fasting Glucose resu lt from 100 to 125 mg/dLsuggests IMPAIRED HOMEOSTASIS per A.D.A. criteria.Please note revised GLUCOSE reference range /02/2018. [facility] [address] [place], [place], [address] LDH 191 U/L Normal 84-246 [facility] Work Phone: Phosphate mass conc 3.7 mg/dL Normal 2.5-4.9 Compr ensive [facility] Work Phone: Potassium molar conc 4.0 mmol/L Normal 3.5-5.1 Comp rehensive [facility] Work Phone: Comment on above: [facility] [address] [place], [place], [address] Sodium molar conc 137 mmol/L Normal 136-145 Compreh ensive [facility] Work Phone: Comment on above: [facility] [place], [place], [address] T PROT 8.4 g/dL Abnormal 6.4-8.2 [facility] Work Phone: Triglyceride mass conc 83 mg/dL Normal Co mprehensive [facility] Work Phone: Comment on above: The drugs N-Acetylcy steine and Metamizole may falselydepress this assay.Serum Triglycerides Reference Interval Normal <150 mg/dL Borderline high 150 - 199 mg/dL High 200 - 499 mg/dL Very High > or = 500 mg/dL [place] [address] [place], [place], [address] Urea nitrogen mass conc 17 mg/dL Normal 7-18 C omprehensive [facility] Work Phone: Comment on above: [place] [address] [place], [place], [address] URIC 4.6 mg/dL Normal 2.6-6.0 [facility] Work Phone: Comment on above: The drugs N-Acetylcy steine and Metamizole may falselydepress this assay. Employee Profile 3.7 mg/dL Normal 2.5-4.9 Comprehe nsive Internal Medicine Work Phone: Comment on above: [place] [address] [place], [place], [address] Employee Profile 106 mL/min Normal Comprehe nsive [facility] Medicine Work Phone: Comment on above: GFR Calc [facility] [place], [place], [address] Employee Profile 3.90 1 Normal Comprehe nsive [facility] Medicine Work Phone: Comment on above: [facility] [place], [place], [address] Employee Profile 4.4 g/dL Abnormal 2.2-4.2 Comprehe nsive [facility] Medicine Work Phone: Comment on above: [place] [address] [place], [address] Employee Profile 191 U/L Normal 84-246 Comprehe nsive [facility] Work Phone: Comment on above: [place] [address] [place], [place], [address] Employee Profile 9 1 Normal 5-15 Comprehe nsive [facility] Work Phone: Comment on above: [place] [address] [place], [place], [address] Employee Profile 8.4 g/dL Abnormal 6.4-8.2 Comprehe nsive [facility] Work Phone: Comment on above: [place] [address] [place], [place], [address] Employee Profile 72 U/L Normal 45-117 Comprehe nsive [facility] Work Phone: Comment on above: [place] [address] [place], [place], [address] Employee Profile 4.6 mg/dL Normal 2.6-6.0 Comprehe nsive [facility] Medicine Work Phone: Comment on above: The drugs N-Acetylcy steine and Metamizole may falselydepress this assay. [facility] [address] [place], [place], [address] Employee Profile 17 mg/dL Normal 5-40 Comprehe nsive Internal Medicine Work Phone: Comment on above: [facility] [address] [place], [place], [address] Employee Profile 23.3 {RATIO} Abnormal 10-20 Compre [facility] Internal [facility] Work Phone: Comment on above: [facility] [address] [place], [place], [address] Nicotine Urine Drug ScreenOr dered By: Cane Weigher Helper on 02-24-2018 COT DRG SCREEN Negative Normal Comprehens [facility] Work Phone: Comment on above: Cotinine is the firs t-stage metabolite of Nicotine. TO BE CONFIRMED Normal Comprehen [facility] Internal Medicine Work Phone: Comment on above: CONFIRMATORY TESTING FOR ALL POSITIVE URINE DRUG SCREENRESULTS WILL ONLY BE SENT OUT UPON PHYSICIAN ORDER.The results of Urine Drug Screen methods provide onlypreliminary analytical test results. A more specificalternate chemical method must be used in order to obtain aconfirmed analytical result. Gas chromatography/massspectrometery (GC/MS) is the preferred confirmatory method.Clinical consideration and professional judgement should beapplied to any drug of abuse test result, particularly whenpreliminary positive results are used. Nicotine Urine Drug Screen Normal [facility] Work Phone: Comment on above: CONFIRMATORY TESTING FOR ALL POSITIVE URINE DRUG SCREENRESULTS WILL ONLY BE SENT OUT UPON PHYSICIAN ORDER.The results of Urine Drug Screen methods provide onlypreliminary analytical test results. A more specificalternate chemical method must be used in order to obtain aconfirmed analytical result. Gas chromatography/massspectrometery (GC/MS) is the preferred confirmatory method.Clinical consideration and professional judgement should beapplied to any drug of abuse test result, particularly whenpreliminary positive results are used. [facility] [address] [place], [place], [address] Urinalysis, EmployeeOrdered By: Cane Weigher Helper on 02-24-2018 BILIRUBIN URINE Negative Normal Comprehen [facility] Internal Medicine Work Phone: CLARITY Clear Normal [facility] Work Phone: Clarity Nom (U) Clear Normal Comprehen [facility] Internal Medicine Work Phone: Comment on above: [facility] [address] [place], [place], [phone] COLOR Yellow Normal [facility] Work Phone: Color Nom (U) Yellow Normal [facility] Work Phone: Comment on above: [facility] [address] [place], [place], [address] GLUCOSE, UR Normal Normal [facility] Work Phone: LEUK ESTERASE 25 /ul Abnormal [facility] Work Phone: OCCULT BLOOD-UR 10 /ul Abnormal [facility] Internal [facility] Work Phone: pH UR 6.5 1 Normal 5.0 - 8.0 [facility] Work Phone: SP.GR. DIPSTX 1.005 1 Normal 1.002-1.03 0 [facility] Work Phone: Urinalysis, Employee 25 /ul Abnormal Comp rehensive Internal Medicine Work Phone: Comment on above: [facility] [address] [place], [place], [address] Urinalysis, Employee 10 /ul Abnormal [facility] rehensive Internal Medicine Work Phone: Comment on above: [facility] [address] [place], [place], [address] Urinalysis, Employee Negative Normal [facility] rehensive Internal Medicine Work Phone: Comment on above: [facility] [address] [place], [place], [address] Cotinine is the firs t-stage metabolite of Nicotine. Urinalysis, Employee Normal Normal Comp rehensive Internal Medicine Work Phone: Comment on above: [facility] [address] [place], [place], [address] Urinalysis, Employee 6.5 1 Normal 5.0 - 8.0 Comp rehensive [facility] Medicine Work Phone: Comment on above: [facility] [address] [place], [place], [address] Urinalysis, Employee 1.005 1 Normal 1.002-1 .03 0 [facility] Work Phone: Comment on above: [facility] [address] [place], [place], [address] CBC, EmployeeOrdered By: Oscar tem Assistant [employer] on 02-25-2017 Absolute Lymph 1.74 {X10_3/ul} Normal 0.83-4.51 Compr ehensive Internal Medicine Work Phone: Absolute Neut 3.8 {X10_3/uL} Normal 2.0-7.7 Compreh ensive [facility] Medicine Work Phone: Basophils/100 WBC (Bld) 0.3 % Normal 0-1 C omprehensive [facility] Medicine Work Phone: Comment on above: [facility] [address] [place], [address] Basophils/100 WBC Auto (Bld) 0.3 % Normal 0-1 [facility] Work Phone: Eosinophils/100 WBC (Bld) 2.4 % Normal 0-5 [facility] Work Phone: Comment on above: [facility] [address] [place], [address] Eosinophils/100 WBC Auto (Bld) 2.4 % Normal 0-5 [facility] Work Phone: Erythrocyte distribution width Auto Ratio (RBC) 13.3 % Normal 11.6-14.6 [facility] Work Phone: Erythrocyte distribution width Ratio (RBC) 13.3 % Normal 11.6-14.6 [facility] Work Phone: Comment on above: [facility] [address] [place], [place], [phone] Hematocrit Auto Volume Fraction (Bld) 39.0 % Normal 37-47 [facility] Work Phone: Hematocrit Volume Fraction (Bld) 39.0 % Normal 37-47 [facility] Work Phone: Comment on above: [facility] [address] [place], [place], [phone] Hemoglobin mass conc (Bld) 13.3 g/dL Normal 12.0-15.0 [facility] Work Phone: Comment on above: [facility] [address] [place], [address] Lymphocytes/100 WBC (Bld) 27.8 % Normal 19-41 [facility] Work Phone: Comment on above: [facility] [address] [place], [address](358 Lymphocytes/100 WBC Auto (Bld) 27.8 % Normal 19-41 [facility] Work Phone: MCH Auto Entitic mass (RBC) 30.3 pg Normal 27.0-32.0 [facility] Work Phone: MCH Entitic mass (RBC) 30.3 pg Normal 27.0-32.0 [facility] Internal Medicine Work Phone: Comment on above: [facility] [address] [place], [address] MCHC Auto mass conc (RBC) 34.1 {g/gl} Normal 32-36 [facility] Work Phone: MCHC mass conc (RBC) 34.1 {g/gl} Normal 32-36 [facility] Internal Medicine Work Phone: Comment on above: [facility] [address] [place], [place], [phone] MCV Auto Entitic volume (RBC) 88.8 fL Normal 81-99 [facility] Work Phone: MCV Entitic volume (RBC) 88.8 fL Normal 81-99 [facility] Work Phone: Comment on above: [facility] [address] [place], [address] Monocytes/100 WBC Auto (Bld) 9.6 % Normal 0-10 [facility] Work Phone: Comment on above: [facility] [address] [place], [address] Neutrophils/100 WBC (Bld) 59.7 % Normal 47-70 [facility] Work Phone: Comment on above: [facility] [address] [place], [address] Neutrophils/100 WBC Auto (Bld) 59.7 % Normal 47-70 [facility] Work Phone: Platelet mean volume Auto Entitic volume (Bld) 9.0 fL Normal 6.2-12.0 [facility] Work Phone: Platelet mean volume Entitic volume (Bld) 9.0 fL Normal 6.2-12.0 Comprehensi ve Internal Medicine Work Phone: Comment on above: [facility] [address] [place], [address] Platelets #/vol (Bld) 274 10*3/uL Normal 150-450 Co mprehensive [facility] Medicine Work Phone: Comment on above: [facility] [address] [place], [address] Platelets Auto #/vol (Bld) 274 10*3/uL Normal 150-450 [facility] Work Phone: RBC #/vol (Bld) 4.39 {M/mm3} Normal 4.2-5.4 Compreh ensive Internal Medicine Work Phone: Comment on above: [facility] [address] [place], [address] RBC Auto #/vol (Bld) 4.39 {M/mm3} Normal 4.2-5.4 Co mprehensive [facility] Work Phone: RDW SD 43.0 fL Normal 35.1-43.9 [facility] Work Phone: WBC #/vol (Bld) 6.3 10*3/uL Normal 4.4-11.0 Comprehe nsive Internal Medicine Work Phone: Comment on above: [facility] [address] [place], [place], [phone] WBC Auto #/vol (Bld) 6.3 10*3/uL Normal 4.4-11.0 Com prehensive Internal Medicine Work Phone: CBC, Employee 3.8 {X10_3/uL} Normal 2.0-7.7 Compreh ensive Internal Medicine Work Phone: Comment on above: [facility] [address] [place], [place], [phone] CBC, Employee 1.74 {X10_3/ul} Normal 0.83-4.51 Compre hensive Internal Medicine Work Phone: Comment on above: [facility] [address] [place], [place], [phone] CBC, Employee 43.0 fL Normal 35.1-43.9 Comprehensi ve Internal Medicine Work Phone: Comment on above: [facility] [address] [place], [place], [phone] Employee ProfileOrdered By: Cane Weigher Helper on 02-25-2017 A/G 0.9 {RATIO} Normal 0.9-2.4 [facility] Work Phone: Albumin mass conc 3.7 g/dL Normal 3.4-5.0 Compreh ensive Internal Medicine Work Phone: Comment on above: [facility] [address] [place], [place], [phone] Albumin/Globulin mass ratio 0.9 {RATIO} Normal 0.9-2.4 [facility] Work Phone: Comment on above: [facility] [address] [place], [place], [phone] ALP enzyme act/vol 67 U/L Normal 45-117 [facility] Internal Medicine Work Phone: ALT enzyme act/vol 44 U/L Normal 12-78 [facility] Internal Medicine Work Phone: Comment on above: [facility] [address] [place], [place], [phone] AST enzyme act/vol 26 U/L Normal 15-37 [facility] Internal Medicine Work Phone: Comment on above: [facility] [address] [place], [place], [address] Bilirubin mass conc 0.40 mg/dL Normal 0.20-1.00 Compr [facility] Internal Medicine Work Phone: Comment on above: [facility] [address] [place], [place], [address] Bilirubin.direct mass conc 0.08 mg/dL Normal 0.00-0.30 [facility] Internal Medicine Work Phone: Comment on above: [facility] [address] [place], [place], [phone] BUN/CRE 25.9 {RATIO} Abnormal 10-20 Comprehensiv e Internal Medicine Work Phone: Calcium mass conc 8.1 mg/dL Abnormal 8.5-10.1 Compreh ensive Internal Medicine Work Phone: Comment on above: [facility] [address] [place], [place], [phone] Chloride molar conc 110 mmol/L Abnormal 98-107 Compr ensive Internal Medicine Work Phone: Comment on above: [facility] [address] [place], [place], [address] CHOL:HDL 3.80 1 Normal [facility] Work Phone: Cholesterol in HDL mass conc 42 mg/dL Normal [facility] Work Phone: Comment on above: The drugs N-Acetylcy steine and Metamizole may falselydepress this assay. Reference Range HDL <40 mg/dL Low HDL Cholesterol HDL >or= 60 mg/dL High HDL Cholesterol [facility] [address] [place], [place], [phone] Cholesterol in LDL mass conc 98 mg/dL Normal 0-130 [facility] Work Phone: Cholesterol in LDL mass conc 98 mg/dL Normal 0-130 [facility] Work Phone: Comment on above: [facility] [address] [place], [place], [address] Cholesterol in VLDL mass conc 18 mg/dL Normal 5-40 [facility] Work Phone: Cholesterol mass conc 158 mg/dL Normal Com prehensive Internal Medicine Work Phone: Comment on above: <200 mg/dL Desirable 200-240 mg/dL Borderline >240 mg/dL High Risk [facility] [address] [place], [place], [address] CO2 molar conc 19.0 mmol/L Abnormal 21.0-32.0 Comprehen [facility] Internal Medicine Work Phone: Comment on above: [facility] [address] [place], [place], [address] Creatinine mass conc 0.62 mg/dL Normal 0.55-1.02 Comp [facility] Work Phone: Comment on above: The validity of the calculated GFR AND GFRAA in patients over70 years has not been determined. Clinical correlation isessential. [facility] [address] [place], [place], [phone] EST GFR - AA 129 mL/min Normal Comprehensiv e Internal Medicine Work Phone: Comment on above: GFR Calc GAP 9 1 Normal 5-15 [facility] Work Phone: GFR/1.73 sq M predicted among non-blacks MDRD vol rate/area (S/P/Bld) 106 mL/min/{1.73_m2} Normal Com prehensive Internal Medicine Work Phone: Comment on above: Non- GFR Calc [facility] [address] [place], [place], [address] Globulin Calculated mass conc (S) 3.9 g/dL Abnormal 2.3-3.5 [facility] Work Phone: Globulin mass conc (S) 3.9 g/dL Abnormal 2.3-3.5 Co [facility] Work Phone: Comment on above: [facility] [address] [place], [place], [address] Glucose mass conc 119 mg/dL Abnormal 70-110 Compreh ensive Internal Medicine Work Phone: Comment on above: Fasting Glucose resu lt from 110 to <126 mg/dLsuggests IMPAIRED HOMEOSTASIS per A.D.A. criteria. [facility] [address] [place], [place], [address] LDH 212 U/L Normal 84-246 [facility] Work Phone: Phosphate mass conc 3.3 mg/dL Normal 2.5-4.9 Compr ensive Internal Medicine Work Phone: Potassium molar conc 3.7 mmol/L Normal 3.5-5.1 Comp rehensive Internal Medicine Work Phone: Comment on above: [facility] [address] [place], [place], [phone] Protein mass conc 7.6 g/dL Normal 6.4-8.2 Compreh ensive Internal Medicine Work Phone: Comment on above: [facility] [address] [place], [place], [address] Sodium molar conc 138 mmol/L Normal 136-145 Compreh ensive Internal Medicine Work Phone: Comment on above: [facility] [address] [place], [place], [address] Triglyceride mass conc 88 mg/dL Normal Co mprehensive Internal Medicine Work Phone: Comment on above: The drugs N-Acetylcy steine and Metamizole may falselydepress this assay.Serum Triglycerides Reference Interval Normal <150 mg/dL Borderline high 150 - 199 mg/dL High 200 - 499 mg/dL Very High > or = 500 mg/dL [facility] [address] [place], [place], [address] Urea nitrogen mass conc 16 mg/dL Normal 7-18 C omprehensive Internal Medicine Work Phone: Comment on above: [place] [address] [place], [place], [address] URIC 5.1 mg/dL Normal 2.6-6.0 [facility] Work Phone: Comment on above: The drugs N-Acetylcy steine and Metamizole may falselydepress this assay. Employee Profile 9 1 Normal 5-15 Comprehe nsive Internal Medicine Work Phone: Comment on above: [place] [address] [place], [place], [address] Employee Profile 129 mL/min Normal Comprehe nsive Internal Medicine Work Phone: Comment on above: GFR Calc [facility] [address] [place], [place], [address] Employee Profile 25.9 {RATIO} Abnormal 10-20 Compre hensive Internal Medicine Work Phone: Comment on above: [place] [address] [place], [place], [address] Employee Profile 5.1 mg/dL Normal 2.6-6.0 Comprehe nsive Internal Medicine Work Phone: Comment on above: The drugs N-Acetylcy steine and Metamizole may falselydepress this assay. [facility] [address] [place], [place], [address] Employee Profile 212 U/L Normal 84-246 Comprehe nsive Internal Medicine Work Phone: Comment on above: [facility] [address] [place], [address] Employee Profile 18 mg/dL Normal 5-40 Comprehe nsive Internal Medicine Work Phone: Comment on above: [facility] [address] [place], [place], [address] Employee Profile 3.80 1 Normal Comprehe nsive Internal Medicine Work Phone: Comment on above: [facility] [address] [place], [address] Employee Profile 67 U/L Normal 45-117 Comprehe nsive Internal Medicine Work Phone: Comment on above: [facility] [address] [place], [place], [address] Employee Profile 3.3 mg/dL Normal 2.5-4.9 Comprehe nsive Internal Medicine Work Phone: Comment on above: [facility] [address] [place], [place], [address] Nicotine Urine Drug ScreenOr dered By: Cane Weigher Helper on 02-25-2017 COT DRG SCREEN Negative Normal Comprehens charisse Internal Medicine Work Phone: Comment on above: Cotinine is the firs t-stage metabolite of Nicotine. TO BE CONFIRMED Normal Comprehen sive Internal Medicine Work Phone: Comment on above: CONFIRMATORY TESTING FOR ALL POSITIVE URINE DRUG SCREENRESULTS WILL ONLY BE SENT OUT UPON PHYSICIAN ORDER.The results of Urine Drug Screen methods provide onlypreliminary analytical test results. A more specificalternate chemical method must be used in order to obtain aconfirmed analytical result. Gas chromatography/massspectrometery (GC/MS) is the preferred confirmatory method.Clinical consideration and professional judgement should beapplied to any drug of abuse test result, particularly whenpreliminary positive results are used. Nicotine Urine Drug Screen Normal [facility] Work Phone: Comment on above: CONFIRMATORY TESTING FOR ALL POSITIVE URINE DRUG SCREENRESULTS WILL ONLY BE SENT OUT UPON PHYSICIAN ORDER.The results of Urine Drug Screen methods provide onlypreliminary analytical test results. A more specificalternate chemical method must be used in order to obtain aconfirmed analytical result. Gas chromatography/massspectrometery (GC/MS) is the preferred confirmatory method.Clinical consideration and professional judgement should beapplied to any drug of abuse test result, particularly whenpreliminary positive results are used. [facility] [address] [place], [place], [address] Urinalysis, EmployeeOrdered By: Cane Weigher Helper on 02-25-2017 CLARITY Clear Normal [facility] Internal Medicine Work Phone: Clarity Nom (U) Clear Normal [facility]pre[facility] Internal Medicine Work Phone: Comment on above: [facility] [address] [place], [place], [address] COLOR Straw Normal [facility] Internal Medicine Work Phone: Color Nom (U) Straw Normal Comprehensi Internal Medicine Work Phone: Comment on above: [facility] [address] [place], [place], [address] GLUCOSE, UR Normal Normal [facility] Work Phone: LEUK ESTERASE 100 /ul Abnormal Comprehensi ve Internal Medicine Work Phone: OCCULT BLOOD-UR Negative Normal Comprehen [facility] Internal Medicine Work Phone: pH UR 6.5 1 Normal 5.0 - 8.0 [facility] Work Phone: SP.GR. DIPSTX 1.010 1 Normal 1.002-1.03 0 [facility] Work Phone: Urinalysis, Employee Negative Normal Comp rehensive Internal Medicine Work Phone: Comment on above: [facility] [address] [place], [place], [address] Cotinine is the firs t-stage metabolite of Nicotine. Urinalysis, Employee 6.5 1 Normal 5.0 - 8.0 Comp rehensive Internal Medicine Work Phone: Comment on above: [facility] [address] [place], [place], [address] Urinalysis, Employee 1.010 1 Normal 1.002-1 .03 0 [facility] Work Phone: Comment on above: [facility] [address] [place], [place], [address] Urinalysis, Employee Normal Normal Comp rehensive Internal Medicine Work Phone: Comment on above: [facility] [address] [place], [place], [address] Urinalysis, Employee 100 /ul Abnormal Comp rehensive Internal Medicine Work Phone: Comment on above: [facility] [address] [place], [place], [address] COLON BIOPSY (CHOOSE SITE)Or dered By: Cane Weigher Helper on 02-19-2017 COLON BIOPSY (CHOOSE SITE) See Note Normal [facility] Work Phone: Comment on above: Patient: GREG POSADAS EA : 1960 (56/F) Acct Num: [id number] Phys: JlJeffry alas Unit Num: [id number] Loc: EN Specimen: [id number] Received: 02/20/171151 Spec Type: COLON BX TISSUES TISSUES: COMMENT Case has been reviewed in consultation with Dr. Pathak who concurs with the above diagnosis. IDC:SJ GROSS DESCRIPTION Received in fixative is one container labeled with the patient's name and designated "hepatic flexure polyp." The specimen consists of one irregular fragment of light egan soft tissue that measures 0.5 x 0.4 x 0.1 cm. The specimen is totally submitted in one cassette. / SJ:brit 02/20/17 TC: 5 CPT: 30905 HEADER OPERATION: Colonoscopy PRE-OP DIAGNOSIS: Screening TISSUE SUBMITTED: Hepatic flexure polyp MICROSCOPIC DESCRIPTION Slides are reviewed. MICROSCOPIC DIAGNOSIS Colonic polyp hepatic flexure, biopsy: Inflammatory polyp. AM:sp 02/21/17 Signed [facility] 02/21/17 [facility] [address] [place], [place], [address] OVYPJ-[id number] ([id number] [id number])Ordered By: Cane Weigher Helper on 09-06-2016 AFP.tumor marker mass conc 7.1 ng/mL Normal 0.0-8.3 [facility] Work Phone: Comment on above: Kwabena ECLIA methodol ogy PATIENT NOT FASTINGP ERFORMED BY: BEAU [facility] [id number] AMYLASE ([id number])Ordered By: S ystem Assistant [employer] on 09-06-2016 Amylase enzyme act/vol 45 U/L Normal 31-124 Co [facility] Internal Medicine Work Phone: Comment on above: PATIENT NOT FASTINGP ERFORMED BY: BEAU [facility] [id number] C-REACTIVE PROTEIN ([id number])Or dered By: Cane Weigher Helper on 09-06-2016 CRP mass conc 5.7 mg/L Abnormal 0.0-4.9 Comprehensi Internal Medicine Work Phone: Comment on above: PATIENT NOT FASTINGP ERFORMED BY: [employer] [facility] Style [employer] [facility] AGMaria [facility] [id number] CBC W/AUTO DIFF WBC ([id number])O rdered By: Cane Weigher Helper on 09-06-2016 Basophils #/vol (Bld) 0.0 {x10E3/uL} Normal 0.0-0.2 [facility] Work Phone: Comment on above: PATIENT NOT FASTINGP ERFORMED BY: [facility] Giatsm5839 [facility] [place] [id number] Basophils (Bld) [#/Vol] 0.0 10*3/uL Normal 0.0-0.2 [facility]; [facility] Work Phone: Comment on above: PATIENT NOT FASTINGP ERFORMED BY: [facility]CoRut[facility] - [facility] Behavioral HealthCareFwwbpm4915 [facility] [id number] Basophils Auto #/vol (Bld) 0.0 {x10E3/uL} Normal 0.0-0.2 [facility] Work Phone: Basophils/100 WBC (Bld) 1 % Normal C omprehensive Internal Medicine Work Phone: Comment on above: PATIENT NOT FASTINGP ERFORMED BY: LabCoRut[facility] - [facility] Behavioral HealthCareHxftzd0839 [facility] [id number] Basophils/100 WBC Auto (Bld) 1 % Normal [facility] Work Phone: Eosinophils #/vol (Bld) 0.2 {x10E3/uL} Normal 0.0-0.4 [facility] Work Phone: Comment on above: PATIENT NOT FASTINGP ERFORMED BY: [facility]CoR[facility] Behavioral HealthCareUthrrt1941 [facility] [id number] Eosinophils (Bld) [#/Vol] 0.2 10*3/uL Normal 0.0-0.4 [facility]; [facility] Work Phone: Comment on above: PATIENT NOT FASTINGP ERFORMED BY: LabCoRut[facility] - [facility] Behavioral HealthCareKuwxnv0744 [facility] [id number] Eosinophils Auto #/vol (Bld) 0.2 {x10E3/uL} Normal 0.0-0.4 [facility] Work Phone: Eosinophils/100 WBC (Bld) 3 % Normal [facility] Work Phone: Comment on above: PATIENT NOT FASTINGP ERFORMED BY: [facility] Lpkoec2642 [facility] [id number] Eosinophils/100 WBC Auto (Bld) 3 % Normal [facility] Work Phone: Erythrocyte distribution width Auto Ratio (RBC) 13.8 % Normal 12.3-15.4 [facility] Work Phone: Erythrocyte distribution width Ratio (RBC) 13.8 % Normal 12.3-15.4 [facility] Work Phone: Comment on above: PATIENT NOT FASTINGP ERFORMED BY: BEAU [facility] Ghhzqj4669 [facility] [id number] Hematocrit Auto Volume Fraction (Bld) 41.7 % Normal 34.0-46.6 [facility] Work Phone: Hematocrit Volume Fraction (Bld) 41.7 % Normal 34.0-46.6 [facility] Work Phone: Comment on above: PATIENT NOT FASTINGP ERFORMED BY: BEAU [facility] Vtzetu3995 [facility] [id number] Hemoglobin mass conc (Bld) 14.7 g/dL Normal 11.1-15.9 [facility] Work Phone: Comment on above: PATIENT NOT FASTINGP ERFORMED BY: CB [facility] Dffgmf3899 Jones RoadNorthern Regional Hospitalin [place] [id number] Immature granulocytes #/vol (Bld) 0.0 {x10E3/uL} Normal 0.0-0.1 [facility] Work Phone: Comment on above: PATIENT NOT FASTINGP ERFORMED BY: CB [facility] Xkofcy1137 [facility] [place] [id number] Immature granulocytes (Bld) [#/Vol] 0.0 10*3/uL Normal 0.0-0.1 [facility]; [facility] Work Phone: Comment on above: PATIENT NOT FASTINGP ERFORMED BY: CB [facility] Y[address] [facility] [place] [id number] Immature granulocytes/100 WBC (Bld) 0 % Normal [facility] Work Phone: Comment on above: PATIENT NOT FASTINGP ERFORMED BY: CB [facility] Nfybtg6804 [facility] [id number] Lymphocytes #/vol (Bld) 1.4 {x10E3/uL} Normal 0.7-3.1 [facility] Work Phone: Comment on above: PATIENT NOT FASTINGP ERFORMED BY: [facility] [facility] [id number] Lymphocytes (Bld) [#/Vol] 1.4 10*3/uL Normal 0.7-3.1 [facility]; [facility] Work Phone: Comment on above: PATIENT NOT FASTINGP ERFORMED BY: [facility] [facility] [id number] Lymphocytes Auto #/vol (Bld) 1.4 {x10E3/uL} Normal 0.7-3.1 [facility] Work Phone: Lymphocytes/100 WBC (Bld) 22 % Normal [facility] Work Phone: Comment on above: PATIENT NOT FASTINGP ERFORMED BY: [facility] [facility] [id number] Lymphocytes/100 WBC Auto (Bld) 22 % Normal [facility] Work Phone: MCH Auto Entitic mass (RBC) 30.5 pg Normal 26.6-33.0 [facility] Work Phone: MCH Entitic mass (RBC) 30.5 pg Normal 26.6-33.0 Co [facility] Internal Medicine Work Phone: Comment on above: PATIENT NOT FASTINGP ERFORMED BY: [facility] [facility] [id number] MCHC Auto mass conc (RBC) 35.3 g/dL Normal 31.5-35.7 [facility] Work Phone: MCHC mass conc (RBC) 35.3 g/dL Normal 31.5-35.7 [facility] Internal Medicine Work Phone: Comment on above: PATIENT NOT FASTINGP ERFORMED BY: [place] [address] [facility] [id number] MCV Auto Entitic volume (RBC) 87 fL Normal 79-97 [facility] Work Phone: MCV Entitic volume (RBC) 87 fL Normal 79-97 [facility] Work Phone: Comment on above: PATIENT NOT FASTINGP ERFORMED BY: BEAU [facility] Truydw[address] [facility] [id number] Monocytes #/vol (Bld) 0.6 {x10E3/uL} Normal 0.1-0.9 [facility] Work Phone: Comment on above: PATIENT NOT FASTINGP ERFORMED BY: [facility]CoR[facility] Behavioral HealthCareCpfwll6983 [facility] [id number] Monocytes (Bld) [#/Vol] 0.6 10*3/uL Normal 0.1-0.9 [facility]; [facility] Work Phone: Comment on above: PATIENT NOT FASTINGP ERFORMED BY: [facility] Zjkhsa[address] [facility] [id number] Monocytes Auto #/vol (Bld) 0.6 {x10E3/uL} Normal 0.1-0.9 [facility] Work Phone: Monocytes/100 WBC (Bld) 9 % Normal C omprehensive Internal Medicine Work Phone: Comment on above: PATIENT NOT FASTINGP ERFORMED BY: [facility] Pybwcp[address] [facility] [id number] Monocytes/100 WBC Auto (Bld) 9 % Normal [facility] Work Phone: Neutrophils #/vol (Bld) 4.2 {x10E3/uL} Normal 1.4-7.0 [facility] Work Phone: Comment on above: PATIENT NOT FASTINGP ERFORMED BY: LabCoRutgers - University Behavioral HealthCareHsefev[address] [facility] [id number] Neutrophils (Bld) [#/Vol] 4.2 10*3/uL Normal 1.4-7.0 [facility]; [facility] Work Phone: Comment on above: PATIENT NOT FASTINGP ERFORMED BY: BEAU [facility] Fedfre01[address] Jones RoadDublin [place] [id number] Neutrophils Auto #/vol (Bld) 4.2 {x10E3/uL} Normal 1.4-7.0 [facility] Work Phone: Neutrophils/100 WBC (Bld) 65 % Normal [facility] Work Phone: Comment on above: PATIENT NOT FASTINGP ERFORMED BY: CB [facility] Uxclya9[address] Jones RoadDublin [place] [id number] Neutrophils/100 WBC Auto (Bld) 65 % Normal [facility] Work Phone: Platelets #/vol (Bld) 338 {x10E3/uL} Normal 150-379 [facility] Work Phone: Comment on above: PATIENT NOT FASTINGP ERFORMED BY: BEAU [facility] Iefsaf1064 Jones RoadNorthern Regional Hospitalin [place] [id number] Platelets (Bld) [#/Vol] 338 10*3/uL Normal 150-379 [facility]; [facility] Work Phone: Comment on above: PATIENT NOT FASTINGP ERFORMED BY: BEAU [facility] Yogvsj9155 [address] RoadDublin [place] [id number] Platelets Auto #/vol (Bld) 338 {x10E3/uL} Normal 150-379 [facility] Work Phone: RBC #/vol (Bld) 4.82 {x10E6/uL} Normal 3.77-5.28 [facility] Internal Medicine Work Phone: Comment on above: PATIENT NOT FASTINGP ERFORMED BY: CB [facility] Ncksuo3792 [address] RoadDublin [place] [id number] RBC (Bld) [#/Vol] 4.82 10*6/uL Normal 3.77-5.28 [facility]; [facility] Work Phone: Comment on above: PATIENT NOT FASTINGP ERFORMED BY: BEAU [facility] Dhkirh3375 [address] RoadDublin [place] [id number] RBC Auto #/vol (Bld) 4.82 {x10E6/uL} Normal 3.77-5.28 [facility] Work Phone: WBC #/vol (Bld) 6.3 {x10E3/uL} Normal 3.4-10.8 Compr ensive Internal Medicine Work Phone: Comment on above: PATIENT NOT FASTINGP ERFORMED BY: BEAU LabCoUNM Sandoval Regional Medical CenterMmvtgl05[address] [facility] [id number] WBC (Bld) [#/Vol] 6.3 10*3/uL Normal 3.4-10.8 Compre [facility] Internal Medicine; [facility] Work Phone: Comment on above: PATIENT NOT FASTINGP ERFORMED BY: BEAU [facility] Hkmrfu27[address] [facility] [id number] WBC Auto #/vol (Bld) 6.3 {x10E3/uL} Normal 3.4-10.8 [facility] Work Phone: HELICOBACTER PYLORI ANTIBODY ([id number])Ordered By: Cane Weigher Helper on 09-06-2016 H. pylori IgG IA Qn (S) 1.0 U/mL Abnormal 0.0-0.8 C ompmarymount hospitalensive Internal Medicine Work Phone: Comment on above: Verified by repeat analysis Negative <0.9 Indeterminate 0.9 - 1.0 Positive >1.0 PATIENT NOT FASTINGP ERFORMED BY: BEAU [facility] Bhjffa[address] [facility] [id number] HGB A1C ([id number])Ordered By: S ystem Assistant [employer] on 09-06-2016 Hemoglobin A1c/Hemoglobin.total mass fraction (Bld) 5.9 % Abnormal 4.8-5.6 Comprehensiv e Internal Medicine Work Phone: Comment on above: . Pre-diabetes: 5.7 - 6.4 Diabetes: >6.4 Glycemic control for adults with diabetes: <7.0 PATIENT NOT FASTINGP ERFORMED BY: BEAU [facility] Ijgyiw13[address] [facility] [id number] LIPASE ([id number])Ordered By: Sy stem Assistant [employer] on 09-06-2016 Lipase enzyme act/vol 39 U/L Normal 0-59 Com prehensive Internal Medicine Work Phone: Comment on above: PATIENT NOT FASTINGP ERFORMED BY: BEAU [facility] Rjunvg8247 [address] RoadDublin [place] [id number] METABOLIC PANEL, COMPREHENSI VE ([id number])Ordered By: Cane Weigher Helper on 09-06-2016 Albumin mass conc 4.6 g/dL Normal 3.5-5.5 Compreh ensive Internal Medicine Work Phone: Comment on above: PATIENT NOT FASTINGP ERFORMED BY: CB [facility] Fpfzhz4361 [address] RoadDublin [place] [id number] Albumin/Globulin mass ratio 1.4 {ratio} Normal 1.2-2.2 [facility] Internal Medicine Work Phone: Comment on above: Please note refere nce interval change PATIENT NOT FASTINGP ERFORMED BY: BEAU [facility] Kpbpwf8953 [address] RoadDublin [place] [id number] ALP [Catalytic activity/Vol] 84 U/L Normal 39-117 [facility]; [facility] Work Phone: Comment on above: PATIENT NOT FASTINGP ERFORMED BY: CB [facility] Kshjhq4539 [address] RoadDublin [place] [id number] ALP enzyme act/vol 84 [iU]/L Normal 39-117 [facility] Internal Medicine Work Phone: Comment on above: PATIENT NOT FASTINGP ERFORMED BY: CB [facility] Mfuesh1151 [address] RoadDublin [place] [id number] ALT [Catalytic activity/Vol] 55 U/L Abnormal 0-32 [facility]; [facility] Work Phone: Comment on above: PATIENT NOT FASTINGP ERFORMED BY: CB [facility] Qcropi1964 [address] RoadDublin [place] [id number] ALT enzyme act/vol 55 [iU]/L Abnormal 0-32 [facility] Internal Medicine Work Phone: Comment on above: PATIENT NOT FASTINGP ERFORMED BY: CB [facility] Wmeose1604 [address] RoadDublin [place] [id number] AST [Catalytic activity/Vol] 35 U/L Normal 0-40 [facility]; [facility] Work Phone: Comment on above: PATIENT NOT FASTINGP ERFORMED BY: BEAU [facility] Zwfwsj0105 [address] RoadDublin [place] [id number] AST enzyme act/vol 35 [iU]/L Normal 0-40 Compre [facility] Internal Medicine Work Phone: Comment on above: PATIENT NOT FASTINGP ERFORMED BY: CB [facility] Hlalho4517 J[address]blin [place] [id number] Bilirubin mass conc 0.5 mg/dL Normal 0.0-1.2 Compr ensive Internal Medicine Work Phone: Comment on above: PATIENT NOT FASTINGP ERFORMED BY: BEAU [facility] Ifinvt8270 Jones RoadNorthern Regional Hospitalin [place] [id number] Calcium mass conc 9.4 mg/dL Normal 8.7-10.2 Compreh ensive Internal Medicine Work Phone: Comment on above: PATIENT NOT FASTINGP ERFORMED BY: BEAU [facility] Vvfpei7653 Jones RoadNorthern Regional Hospitalin [place] [id number] Chloride molar conc 102 mmol/L Normal 96-106 Compr [facility] Internal Medicine Work Phone: Comment on above: PATIENT NOT FASTINGP ERFORMED BY: BEAU [facility] Dcjfld7368 Jones RoadNorthern Regional Hospitalin [place] [id number] CO2 molar conc 22 mmol/L Normal 18-29 Comprehens charisse Internal Medicine Work Phone: Comment on above: PATIENT NOT FASTINGP ERFORMED BY: CB [facility] Mfcydp4953 [address] RoadDublin [place] [id number] Creatinine mass conc 0.74 mg/dL Normal 0.57-1.00 Comp [facility] hospitalensive Internal Medicine Work Phone: Comment on above: PATIENT NOT FASTINGP ERFORMED BY: CB [facility] Abetkz0664 Jones RoadDublin [place] [id number] GFR/1.73 sq M predicted among blacks CKD-EPI vol rate/area (S/P/Bld) 105 mL/min/1.73 Normal Comprehe nsive Internal Medicine Work Phone: Comment on above: PATIENT NOT FASTINGP ERFORMED BY: BEAU Lizbet Heard[address] [facility] [id number] GFR/1.73 sq M predicted among non-blacks CKD-EPI vol rate/area (S/P/Bld) 91 mL/min/1.73 Normal [facility] Work Phone: Comment on above: PATIENT NOT FASTINGP ERFORMED BY: BEAU Lizbet Heard[address] [facility] [id number] Globulin Calculated mass conc (S) 3.2 g/dL Normal 1.5-4.5 [facility] Work Phone: Globulin mass conc (S) 3.2 g/dL Normal 1.5-4.5 Co mprehensive Internal Medicine Work Phone: Comment on above: PATIENT NOT FASTINGP ERFORMED BY: BEAU Maijuan StocktonRrgrkx07[address] [facility] [id number] Glucose mass conc 104 mg/dL Abnormal 65-99 Compreh ensive Internal Medicine Work Phone: Comment on above: PATIENT NOT FASTINGP ERFORMED BY: BEAU Lizbet Heard[address] [facility] [id number] Potassium molar conc 4.5 mmol/L Normal 3.5-5.2 Comp rehensive Internal Medicine Work Phone: Comment on above: PATIENT NOT FASTINGP ERFORMED BY: BEAU Carol AnnEmily StocktonLqqtyc27[address] [facility] [id number] Protein mass conc 7.8 g/dL Normal 6.0-8.5 Compreh ensive Internal Medicine Work Phone: Comment on above: PATIENT NOT FASTINGP ERFORMED BY: BEAU Maijuan Eprsfb[address] [facility] [id number] Sodium molar conc 143 mmol/L Normal 134-144 Compreh ensive Internal Medicine Work Phone: Comment on above: PATIENT NOT FASTINGP ERFORMED BY: BEAU Maijuan StocktonKphlwu35[address] [facility] [id number] Urea nitrogen mass conc 10 mg/dL Normal 6-24 C omprehensive Internal Medicine Work Phone: Comment on above: PATIENT NOT FASTINGP ERFORMED BY: [facility] [facility] [id number] Urea nitrogen/Creatinine mass ratio 14 mg/mg Normal 9-23 [facility] Work Phone: Comment on above: Please note refere nce interval change PATIENT NOT FASTINGP ERFORMED BY: [facility] [facility] [id number] Sed Rate Erythrocyte ([id number]) Ordered By: Cane Weigher Helper on 09-06-2016 ESR Velocity (Bld) 20 mm/h Normal 0-40 Compre hensive Internal Medicine Work Phone: Comment on above: PATIENT NOT FASTINGP ERFORMED BY: [facility] [facility] [id number] PAP I-G w/rfx hrHPVOrdered B y: Cane Weigher Helper on 08-05-2016 COMM . Normal [facility] Work Phone: HPV RFLX Comment Normal [facility] Work Phone: Comment on above: The HPV DNA reflex c nick were not met with this specimenresult therefore, no HPV testing was performed.Performed at: [address] [id number] Director: Gloria Galvin MD, Phone: [phone] The Pap smear is a s creening test designed to aid in thedetection of premalignant and malignant conditions of theuterine cervix. It is not a diagnostic procedure andshould not be used as the sole means of detecting cervicalcancer. Both false-positive and false-negative reports dooccur. This liquid based Th inPrep(R) pap test was screened withthe use of an image guided system. Alem Ding, Cytot echnologist (ASCP) Satisfactory for scarlet luation. Endocervical and/or squamous metaplasticcells (endocervical component) are present. NEGATIVE FOR INTRAEP ITHELIAL LESION AND MALIGNANCY. PAP I-G w/rfx hrHPV Comment Normal Compr [facility] Internal Medicine Work Phone: Comment on above: The HPV DNA reflex c nick were not met with this specimenresult therefore, no HPV testing was performed.Performed at: [address] StreetJuan Jose jacobs, [place] [id number] Director: Gloria Galvin MD, Phone: [phone] CYTOLOGY INFORMATION :- CLINICAL INFORMATION:- DATE LMP/MENOPAUSE: MENOPAUSE- COLLECTION VIAL: Thin Prep Vial- SUPERINTENDENT INSTITUTION SOURCE: CERVICAL/ENDOCERVICAL- COLLECTION TECHNIQUE: BRUSH/SPATULACYTOLOGY INFORMATION:- CLINICAL INFORMATION:- DATE LMP/MENOPAUSE: MENOPAUSE- COLLECTION VIAL: Thin Prep Vial- SUPERINTENDENT INSTITUTION SOURCE: CERVICAL/ENDOCERVICAL- COLLECTION TECHNIQUE: BRUSH/SPATULASpecimen Comment: [id number] Comment: No. of containers..01 CYTYC Thin Prep VialLabCorp (refer to report for specific site)refer to report for address and phone number The Pap smear is a s creening test designed to aid in thedetection of premalignant and malignant conditions of theuterine cervix. It is not a diagnostic procedure andshould not be used as the sole means of detecting cervicalcancer. Both false-positive and false-negative reports dooccur. This liquid based Th inPrep(R) pap test was screened withthe use of an image guided system. Alem Ding, Cytot echnologist (ASCP) Satisfactory for scarlet luation. Endocervical and/or squamous metaplasticcells (endocervical component) are present. NEGATIVE FOR INTRAEP ITHELIAL LESION AND MALIGNANCY. PAP I-G w/rfx hrHPV . Normal [facility] Internal Medicine Work Phone: Comment on above: CYTOLOGY INFORMATION :- CLINICAL INFORMATION:- DATE LMP/MENOPAUSE: MENOPAUSE- COLLECTION VIAL: Thin Prep Vial- SUPERINTENDENT INSTITUTION SOURCE: CERVICAL/ENDOCERVICAL- COLLECTION TECHNIQUE: BRUSH/SPATULACYTOLOGY INFORMATION:- CLINICAL INFORMATION:- DATE LMP/MENOPAUSE: MENOPAUSE- COLLECTION VIAL: Thin Prep Vial- SUPERINTENDENT INSTITUTION SOURCE: CERVICAL/ENDOCERVICAL- COLLECTION TECHNIQUE: BRUSH/SPATULASpecimen Comment: [id number] Comment: No. of containers..01 CYTYC Thin Prep VialLabCorp (refer to report for specific site)refer to report for address and phone number Pathology ReportOrdered By: Cane Weigher Helper on 05-08-2016 Pathology report site of origin Narrative MATER Normal Comprehensiv e Internal Medicine Work Phone: Comment on above: Material submitted: .SKIN SHAVE FACE LEFTClinician provided ICD-10:D48.5Clinical history: .LEFT SIDE OF FACE. RAISED LESION PARTIALLY PIGMENTED. Diagnosis:SEBORRHEIC KERATOSIS...05/14/2016 Electronically signed: .Kevin Etienne MD, PathologistGross description: .1 CONTAINER, FORMALIN-FILLED, LABELED WITH PATIENT IDENTIFICATION.SKIN SHAVE FACE LEFT:1 SHAVE BIOPSY OF EGAN SKIN MEASURING 0.6 X 0.5 X 0.1 CM. THE SURGICALMARGIN IS INKED BLUE AND THE SPECIMEN IS BISECTED. THE SPECIMEN ISSUBMITTED IN CASSETTE(S) A. THERE ARE 2 PIECES TOTAL./XJWXJW/XJWPathologist provided ICD-10:D48.5, L82.1CPT .[id number] PERFORMED BY: Start[employer] InstituteCYT [facility] Spade Cyto Sdjtw04604 [facility] [id number] Information: [id number] CBC, EmployeeOrdered By: Oscar tem Assistant [employer] Content [employer] Delivery on 02-21-2016 Absolute Lymph 1.96 {X10_3/ul} Normal 0.83-4.51 Compr ehensive Internal Medicine Work Phone: Absolute Neut 4.0 {X10_3/uL} Normal 2.0-7.7 Compreh ensive Internal Medicine Work Phone: Basophils/100 WBC (Bld) 0.4 % Normal 0-1 C omprehensive Internal Medicine Work Phone: Comment on above: [facility] [address] [place], [place], [phone] ; will review at 02/25 appt Basophils/100 WBC Auto (Bld) 0.4 % Normal 0-1 [facility] Work Phone: Eosinophils/100 WBC (Bld) 2.5 % Normal 0-5 [facility] Work Phone: Comment on above: [facility] [address] [place], [place], [phone] ; will review at 02/25 appt Eosinophils/100 WBC Auto (Bld) 2.5 % Normal 0-5 [facility] Work Phone: Erythrocyte distribution width Auto Ratio (RBC) 13.7 % Normal 11.6-14.6 [facility] Work Phone: Erythrocyte distribution width Ratio (RBC) 13.7 % Normal 11.6-14.6 [facility] Work Phone: Comment on above: [facility] [address] [place], [place], [phone] ; will review at 02/25 appt Hematocrit Auto Volume Fraction (Bld) 40.2 % Normal 37-47 [facility] Work Phone: Hematocrit Volume Fraction (Bld) 40.2 % Normal 37-47 [facility] Work Phone: Comment on above: [facility] [address] [place], [place], [phone] ; will review at 02/25 appt Hemoglobin mass conc (Bld) 13.9 g/dL Normal 12.0-15.0 [facility] Work Phone: Comment on above: [facility] [address] [place], [place], [phone] ; will review at 02/25 appt Lymphocytes/100 WBC (Bld) 28.7 % Normal 19-41 [facility] Work Phone: Comment on above: [facility] [address] [place], [place], [phone] ; will review at 02/25 appt Lymphocytes/100 WBC Auto (Bld) 28.7 % Normal 19-41 [facility] Work Phone: MCH Auto Entitic mass (RBC) 30.6 pg Normal 27.0-32.0 [facility] Work Phone: MCH Entitic mass (RBC) 30.6 pg Normal 27.0-32.0 [facility] Internal Medicine Work Phone: Comment on above: [facility] [address] [place], [place], [phone] ; will review at 02/25 appt MCHC Auto mass conc (RBC) 34.6 {g/gl} Normal 32-36 [facility] Work Phone: MCHC mass conc (RBC) 34.6 {g/gl} Normal 32-36 [facility] Internal Medicine Work Phone: Comment on above: [facility] [address] [place], [place], [phone] ; will review at 02/25 appt MCV Auto Entitic volume (RBC) 88.5 fL Normal 81-99 [facility] Work Phone: MCV Entitic volume (RBC) 88.5 fL Normal 81-99 [facility] Work Phone: Comment on above: [facility] [address] [place], [place], [phone] ; will review at 02/25 appt Monocytes/100 WBC Auto (Bld) 9.4 % Normal 0-10 [facility] Work Phone: Comment on above: [facility] [address] [place], [place], [address] ; will review at 02/25 appt Neutrophils/100 WBC (Bld) 58.7 % Normal 47-70 [facility] Work Phone: Comment on above: [facility] [address] [place], [place], [phone] ; will review at 02/25 appt Neutrophils/100 WBC Auto (Bld) 58.7 % Normal 47-70 [facility] Work Phone: Platelet mean volume Auto Entitic volume (Bld) 9.0 fL Normal 6.2-12.0 [facility] Work Phone: Platelet mean volume Entitic volume (Bld) 9.0 fL Normal 6.2-12.0 Comprehensi ve Internal Medicine Work Phone: Comment on above: [facility] [address] [place], [place], [phone] ; will review at 02/25 appt Platelets #/vol (Bld) 341 10*3/uL Normal 150-450 Co mprehensive Internal Medicine Work Phone: Comment on above: [facility] [address] [place], [place], [phone] ; will review at 02/25 appt Platelets Auto #/vol (Bld) 341 10*3/uL Normal 150-450 [facility] Work Phone: RBC #/vol (Bld) 4.54 {M/mm3} Normal 4.2-5.4 Compreh ensive Internal Medicine Work Phone: Comment on above: [facility] [address] [place], [place], [phone] ; will review at 02/25 appt RBC Auto #/vol (Bld) 4.54 {M/mm3} Normal 4.2-5.4 Co mprehensive Internal Medicine Work Phone: RDW SD 43.8 fL Normal 35.1-43.9 [facility] Work Phone: WBC #/vol (Bld) 6.8 10*3/uL Normal 4.4-11.0 Comprehe nsive Internal Medicine Work Phone: Comment on above: [facility] [address] [place], [place], [phone] ; will review at 02/25 appt WBC Auto #/vol (Bld) 6.8 10*3/uL Normal 4.4-11.0 Com prehensive Internal Medicine Work Phone: CBC, Employee 43.8 fL Normal 35.1-43.9 Comprehensi ve Internal Medicine Work Phone: Comment on above: [facility] [address] [place], [place], [phone] ; will review at 02/25 appt CBC, Employee 1.96 {X10_3/ul} Normal 0.83-4.51 Compre hensive Internal Medicine Work Phone: Comment on above: [facility] [address] [place], [place], [phone] ; will review at 02/25 appt CBC, Employee 4.0 {X10_3/uL} Normal 2.0-7.7 Compreh ensive Internal Medicine Work Phone: Comment on above: [facility] [address] [place], [place], [phone] ; will review at 02/25 appt Employee ProfileOrdered By: Cane Weigher Helper on 02-21-2016 A/G 0.9 {RATIO} Normal 0.9-2.4 [facility] Work Phone: Albumin mass conc 3.6 g/dL Normal 3.4-5.0 Compreh ensive Internal Medicine Work Phone: Comment on above: [facility] [address] [place], [place], [phone] Albumin/Globulin mass ratio 0.9 {RATIO} Normal 0.9-2.4 [facility] Work Phone: Comment on above: [facility] [address] [place], [place], [phone] ALP enzyme act/vol 78 U/L Normal 50-136 Compre [facility] Internal Medicine Work Phone: ALT enzyme act/vol 71 U/L Normal 12-78 [facility] Internal Medicine Work Phone: Comment on above: [facility] [address] [place], [place], [phone] AST enzyme act/vol 37 U/L Normal 15-37 [facility]prfreeman [facility] Internal Medicine Work Phone: Comment on above: [facility] [address] [place], [place], [phone] Bilirubin mass conc 0.40 mg/dL Normal 0.20-1.00 Compr [facility] Internal Medicine Work Phone: Comment on above: [facility] [address] [place], [place], [phone] Bilirubin.direct mass conc 0.11 mg/dL Normal 0.00-0.30 [facility] Work Phone: Comment on above: [facility] [address] [place], [place], [phone] BUN/CRE 19.8 {RATIO} Normal 10-20 Comprehensiv e Internal Medicine Work Phone: Calcium mass conc 8.3 mg/dL Abnormal 8.5-10.1 Compreh ensive Internal Medicine Work Phone: Comment on above: [facility] [address] [place], [place], [phone] Chloride molar conc 105 mmol/L Normal 98-107 Compr ensive Internal Medicine Work Phone: Comment on above: [facility] [address] [place], [address] CHOL:HDL 3.70 1 Normal [facility] Work Phone: Cholesterol in HDL mass conc 48 mg/dL Normal [facility] Work Phone: Comment on above: The drugs N-Acetylcy steine and Metamizole may falsely deressthis assay. Reference Range HDL <40 mg/dL Low HDL Cholesterol HDL >or= 60 mg/dL High HDL Cholesterol [facility] [address] [place], [place], [phone] Cholesterol in LDL mass conc 108 mg/dL Normal 0-130 [facility] Work Phone: Cholesterol in LDL mass conc 108 mg/dL Normal 0-130 [facility] Work Phone: Comment on above: [facility] [address] [place], [place], [phone] Cholesterol in VLDL mass conc 22 mg/dL Normal 5-40 [facility] Work Phone: Cholesterol mass conc 178 mg/dL Normal Com prehensive Internal Medicine Work Phone: Comment on above: <200 mg/dL Desirable 200-240 mg/dL Borderline >240 mg/dL High Risk [facility] [address] [place], [place], [address] CO2 molar conc 25.0 mmol/L Normal 21.0-32.0 Comprehen [facility] Internal [facility] Work Phone: Comment on above: [facility] [address] [place], [place], [phone] Creatinine mass conc 0.71 mg/dL Normal 0.55-1.20 Comp rehensive Internal Medicine Work Phone: Comment on above: The validity of the calculated GFR AND GFRAA in patients over70 years has not been determined. Clinical correlation isessential. [facility] [address] [place], [place], [phone] EST GFR - AA 111 mL/min Normal Comprehensiv e Internal Medicine Work Phone: Comment on above: GFR Calc GAP 8 1 Normal 5-15 [facility] Work Phone: GFR/1.73 sq M predicted among non-blacks MDRD vol rate/area (S/P/Bld) 91 mL/min/{1.73_m2} Normal Comp rehensive Internal Medicine Work Phone: Comment on above: Non- GFR Calc [facility] [address] [place], [place], [phone] Globulin Calculated mass conc (S) 4.0 g/dL Abnormal 2.3-3.5 [facility] Work Phone: Globulin mass conc (S) 4.0 g/dL Abnormal 2.3-3.5 Co [facility] Internal Medicine Work Phone: Comment on above: [facility] [address] [place], [place], [phone] Glucose mass conc 105 mg/dL Normal 70-110 Compreh ensive Internal Medicine Work Phone: Comment on above: [facility] [address] [place], [place], [phone](393 LDH 184 U/L Normal 84-246 [facility] Work Phone: Phosphate mass conc 3.6 mg/dL Normal 2.5-4.9 Compr ensive Internal Medicine Work Phone: Potassium molar conc 3.9 mmol/L Normal 3.5-5.1 Comp [facility] Work Phone: Comment on above: [facility] [address] [place], [place], [phone] Protein mass conc 7.6 g/dL Normal 6.4-8.2 Compreh ensive Internal Medicine Work Phone: Comment on above: [facility] [address] [place], [place], [phone](080) Sodium molar conc 138 mmol/L Normal 136-145 Compreh ensive Internal Medicine Work Phone: Comment on above: [facility] [address] [place], [place], [id number] Triglyceride mass conc 112 mg/dL Normal Co mprehensive Internal Medicine Work Phone: Comment on above: The drugs N-Acetylcy steine and Metamizole may falsely deressthis assay.Serum Triglycerides Reference Interval Normal <150 mg/dL Borderline high 150 - 199 mg/dL High 200 - 499 mg/dL Very High > or = 500 mg/dL [place] [address] [place], [place], [id number] Urea nitrogen mass conc 14 mg/dL Normal 7-18 C omprehensive Internal Medicine Work Phone: Comment on above: [place] [address] [place], [place], [id number] URIC 4.7 mg/dL Normal 2.6-6.0 [facility] Work Phone: Comment on above: The drugs N-Acetylcy steine and Metamizole may falsely deressthis assay. Employee Profile 3.6 mg/dL Normal 2.5-4.9 Comprehe nsive Internal Medicine Work Phone: Comment on above: [place] [address] [place], [place], [id number] Employee Profile 19.8 {RATIO} Normal 10-20 Compre hensive Internal Medicine Work Phone: Comment on above: [place] [address] [place], [place], [id number] Employee Profile 111 mL/min Normal Comprehe nsive Internal Medicine Work Phone: Comment on above: GFR Calc [place] [address] [place], [place], [id number] Employee Profile 184 U/L Normal 84-246 Comprehe nsive Internal Medicine Work Phone: Comment on above: [place] [address] [place], [place], [phone] Employee Profile 22 mg/dL Normal 5-40 Comprehe nsive Internal Medicine Work Phone: Comment on above: [facility] [address] [place], [place], [address] Employee Profile 3.70 1 Normal Comprehe nsive Internal Medicine Work Phone: Comment on above: [facility] [address] [place], [place], [address] Employee Profile 8 1 Normal 5-15 Comprehe nsive Internal Medicine Work Phone: Comment on above: [facility] [address] [place], [place], [address] Employee Profile 78 U/L Normal 50-136 Comprehe nsive Internal Medicine Work Phone: Comment on above: [facility] [address] [place], [place], [address] Employee Profile 4.7 mg/dL Normal 2.6-6.0 Comprehe nsive Internal Medicine Work Phone: Comment on above: The drugs N-Acetylcy steine and Metamizole may falsely deressthis assay. [facility] [address] [place], [place], [address] Nicotine Urine Drug ScreenOr dered By: Cane Weigher Helper on 02-21-2016 COT DRG SCREEN Negative Normal Comprehens charisse Internal Medicine Work Phone: Comment on above: Cotinine is the firs t-stage metabolite of Nicotine. TO BE CONFIRMED Normal Comprehen sive Internal Medicine Work Phone: Comment on above: CONFIRMATORY TESTING FOR ALL POSITIVE URINE DRUG SCREENRESULTS WILL ONLY BE SENT OUT UPON PHYSICIAN ORDER.The results of Urine Drug Screen methods provide onlypreliminary analytical test results. A more specificalternate chemical method must be used in order to obtain aconfirmed analytical result. Gas chromatography/massspectrometery (GC/MS) is the preferred confirmatory method.Clinical consideration and professional judgement should beapplied to any drug of abuse test result, particularly whenpreliminary positive results are used. Nicotine Urine Drug Screen Negative Normal [facility] Work Phone: Comment on above: Cotinine is the firs t-stage metabolite of Nicotine. [facility] [address] [place], [place], [address] How was Urine Obtain ed? [facility] [address] [place], [place], [phone] Nicotine Urine Drug Screen Normal [facility] Work Phone: Comment on above: CONFIRMATORY TESTING FOR ALL POSITIVE URINE DRUG SCREENRESULTS WILL ONLY BE SENT OUT UPON PHYSICIAN ORDER.The results of Urine Drug Screen methods provide onlypreliminary analytical test results. A more specificalternate chemical method must be used in order to obtain aconfirmed analytical result. Gas chromatography/massspectrometery (GC/MS) is the preferred confirmatory method.Clinical consideration and professional judgement should beapplied to any drug of abuse test result, particularly whenpreliminary positive results are used. [facility] [address] [place], [place], [phone] Urinalysis, EmployeeOrdered By: Cane Weigher Helper on 02-21-2016 CLARITY Clear Normal [facility] Work Phone: Clarity Nom (U) Clear Normal Comprehen sive Internal Medicine Work Phone: Comment on above: How was Urine Obtain ed? [facility] [address] [place], [place], [phone] COLOR Yellow Normal [facility] Work Phone: Color Nom (U) Yellow Normal Comprehensi ve Internal Medicine Work Phone: Comment on above: How was Urine Obtain ed? [facility] [address] [place], [place], [phone] KETONE UR Negative Normal [facility] Work Phone: LEUK ESTERASE 500 /ul Abnormal Comprehensi ve Internal Medicine Work Phone: OCCULT BLOOD-UR 25 /ul Abnormal Comprehen sive Internal Medicine Work Phone: pH UR 6.0 1 Normal 5.0 - 8.0 [facility] Internal Medicine Work Phone: SP.GR. DIPSTX 1.020 1 Normal 1.002-1.03 0 [facility] Internal Medicine Work Phone: UROBILI Normal Normal [facility] Internal Medicine Work Phone: Urinalysis, Employee 500 /ul Abnormal [facility] Internal Medicine Work Phone: Comment on above: How was Urine Obtain ed? [facility] [address] [place], [place], [phone] Urinalysis, Employee 25 /ul Abnormal [facility] Internal Medicine Work Phone: Comment on above: How was Urine Obtain ed? [facility] [address] [place], [place], [phone] Urinalysis, Employee Normal Normal [facility] Internal Medicine Work Phone: Comment on above: How was Urine Obtain ed? [facility] [address] [place], [place], [phone] Urinalysis, Employee 6.0 1 Normal 5.0 - 8.0 [facility] Internal Medicine Work Phone: Comment on above: How was Urine Obtain ed? [facility] [address] [place], [place], [phone] Urinalysis, Employee 1.020 1 Normal 1.002-1 .03 0 [facility] Internal Medicine Work Phone: Comment on above: How was Urine Obtain ed? [facility] [address] [place], [place], [phone] CBC, EmployeeOrdered By: Oscar tem Assistant [employer] on 02-20-2015 Absolute Lymph 1.86 {X10_3/ul} Normal 0.83-4.51 [facility] Internal Medicine Work Phone: Absolute Neut 4.8 {X10_3/uL} Normal 2.0-7.7 Compreh ensive Internal Medicine Work Phone: Basophils/100 WBC (Bld) 0.5 % Normal 0-1 C omprehensive Internal Medicine Work Phone: Comment on above: Test performed at:[facility] [address] [place] [address] Basophils/100 WBC Auto (Bld) 0.5 % Normal 0-1 [facility] Work Phone: Eosinophils/100 WBC (Bld) 2.8 % Normal 0-5 [facility] Work Phone: Comment on above: Test performed at:[facility] [address] [place] [address] Eosinophils/100 WBC Auto (Bld) 2.8 % Normal 0-5 [facility] Work Phone: Erythrocyte distribution width Auto Ratio (RBC) 13.6 % Normal 11.6-14.6 [facility] Work Phone: Erythrocyte distribution width Ratio (RBC) 13.6 % Normal 11.6-14.6 [facility] Work Phone: Comment on above: Test performed at:[facility] [address] [place] [address] Hematocrit Auto Volume Fraction (Bld) 41.3 % Normal 37-47 [facility] Work Phone: Hematocrit Volume Fraction (Bld) 41.3 % Normal 37-47 [facility] Work Phone: Comment on above: Test performed at:[facility] [address] [place] [address] Hemoglobin mass conc (Bld) 14.0 g/dL Normal 12.0-15.0 [facility] Work Phone: Comment on above: Test performed at:[facility] [address] [place] [address] Lymphocytes/100 WBC (Bld) 24.5 % Normal 19-41 [facility] Work Phone: Comment on above: Test performed at:[facility] [address] [place] [address] Lymphocytes/100 WBC Auto (Bld) 24.5 % Normal 19-41 [facility] Work Phone: MCH Auto Entitic mass (RBC) 30.2 pg Normal 27.0-32.0 [facility] Work Phone: MCH Entitic mass (RBC) 30.2 pg Normal 27.0-32.0 [facility] Work Phone: Comment on above: Test performed at:[facility] [address] [place] [address] MCHC Auto mass conc (RBC) 33.9 {g/gl} Normal 32-36 [facility] Work Phone: MCHC mass conc (RBC) 33.9 {g/gl} Normal 32-36 [facility] prehensive Internal Medicine Work Phone: Comment on above: Test performed at:[facility] [address] [place] [address] MCV Auto Entitic volume (RBC) 89.2 fL Normal 81-99 [facility] Work Phone: MCV Entitic volume (RBC) 89.2 fL Normal 81-99 [facility] Work Phone: Comment on above: Test performed at:[facility] [address] [place] [address] Monocytes/100 WBC Auto (Bld) 8.8 % Normal 0-10 [facility] Work Phone: Comment on above: Test performed at:[facility] [address] [place] [address] Neutrophils/100 WBC (Bld) 63.3 % Normal 47-70 [facility] Work Phone: Comment on above: Test performed at:[facility] [address] [place] [address] Neutrophils/100 WBC Auto (Bld) 63.3 % Normal 47-70 [facility] Work Phone: Platelet mean volume Auto Entitic volume (Bld) 8.7 fL Normal 6.2-12.0 [facility] Work Phone: Platelet mean volume Entitic volume (Bld) 8.7 fL Normal 6.2-12.0 Comprehensi ve Internal Medicine Work Phone: Comment on above: Test performed at:[facility] [address] [place] [address] Platelets #/vol (Bld) 304 10*3/uL Normal 150-450 Co [facility] Internal Medicine Work Phone: Comment on above: Test performed at:[facility] [address] [place] [address] Platelets Auto #/vol (Bld) 304 10*3/uL Normal 150-450 [facility] Work Phone: RBC #/vol (Bld) 4.63 {M/mm3} Normal 4.2-5.4 Compreh ensive Internal Medicine Work Phone: Comment on above: Test performed at:[facility] [address] [place] [address] RBC Auto #/vol (Bld) 4.63 {M/mm3} Normal 4.2-5.4 [facility] Work Phone: RDW SD 44.1 fL Abnormal 35.1-43.9 [facility] Work Phone: WBC #/vol (Bld) 7.6 10*3/uL Normal 4.4-11.0 Comprehe nsive Internal Medicine Work Phone: Comment on above: Test performed at:[facility] [address] [place] [address] WBC Auto #/vol (Bld) 7.6 10*3/uL Normal 4.4-11.0 Com prehensive Internal Medicine Work Phone: CBC, Employee 44.1 fL Abnormal 35.1-43.9 Comprehensi ve Internal Medicine Work Phone: Comment on above: Test performed at:[facility] [address] [place] [address] CBC, Employee 1.86 {X10_3/ul} Normal 0.83-4.51 Compre [facility] Internal Medicine Work Phone: Comment on above: Test performed at:[facility] [address] [place] [address] CBC, Employee 4.8 {X10_3/uL} Normal 2.0-7.7 Compreh ensive Internal Medicine Work Phone: Comment on above: Test performed at:[facility] [address] [place] [address] Employee ProfileOrdered By: Cane Weigher Helper on 02-20-2015 A/G 0.9 {RATIO} Normal 0.9-2.4 [facility] Work Phone: Albumin mass conc 3.9 g/dL Normal 3.4-5.0 Compreh ensive Internal Medicine Work Phone: Comment on above: Test performed at:[facility] [address] [place] [address] Albumin/Globulin mass ratio 0.9 {RATIO} Normal 0.9-2.4 [facility] Work Phone: Comment on above: Test performed at:[facility] [address] [place] [address] ALP enzyme act/vol 85 U/L Normal 50-136 [facility] Internal Medicine Work Phone: ALT enzyme act/vol 69 U/L Normal 12-78 [facility] Internal Medicine Work Phone: Comment on above: Test performed at:[facility] [address] [place] [address] AST enzyme act/vol 34 U/L Normal 15-37 Compre [facility] Internal Medicine Work Phone: Comment on above: Test performed at:[facility] [address] [place] [address] Bilirubin mass conc 0.40 mg/dL Normal 0.20-1.00 Compr ensive Internal Medicine Work Phone: Comment on above: Test performed at:[facility] [address] [place] [address] Bilirubin.direct mass conc 0.10 mg/dL Normal 0.00-0.30 [facility] Work Phone: Comment on above: Test performed at:[facility] [address] [place] [address] BUN/CRE 22.2 {RATIO} Abnormal 10-20 Comprehensiv e Internal Medicine Work Phone: Calcium mass conc 8.3 mg/dL Abnormal 8.5-10.1 Compreh ensive Internal Medicine Work Phone: Comment on above: Test performed at:[facility] [address] [place] [address] Chloride molar conc 107 mmol/L Normal 98-107 Compr [facility] Internal Medicine Work Phone: Comment on above: Test performed at:[facility] [address] [place] [address] Cholesterol in HDL mass conc 52 mg/dL Normal [facility] Work Phone: Comment on above: Reference Range HDL <40 mg/dL Low HDL Cholesterol HDL >or= 60 mg/dL High HDL Cholesterol Test performed at:[facility] [address] [place] [address] Cholesterol in LDL mass conc 125 mg/dL Normal 0-130 [facility] Work Phone: Cholesterol in LDL mass conc 125 mg/dL Normal 0-130 [facility] Work Phone: Comment on above: Test performed at:[facility] [address] [place] [address] Cholesterol in VLDL mass conc 23 mg/dL Normal 5-40 [facility] Work Phone: Cholesterol mass conc 200 mg/dL Normal Com prehensive Internal Medicine Work Phone: Comment on above: <200 mg/dL Desirable 200-240 mg/dL Borderline >240 mg/dL High Risk Test performed at:[facility] [address] [place] [address] CO2 molar conc 27.0 mmol/L Normal 21.0-32.0 Comprehen [facility] Internal Medicine Work Phone: Comment on above: Test performed at:[facility] [address] [place] [address] Creatinine mass conc 0.72 mg/dL Normal 0.55-1.20 Comp rehensive Internal Medicine Work Phone: Comment on above: The validity of the calculated GFR AND GFRAA in patients over70 years has not been determined. Clinical correlation isessential. Test performed at:[facility] [address] [place] [address] EST GFR - AA 109 mL/min Normal Comprehensiv e Internal Medicine Work Phone: GAP 4 1 Abnormal 5-15 [facility] Work Phone: GFR/1.73 sq M predicted among non-blacks MDRD vol rate/area (S/P/Bld) 90 mL/min/{1.73_m2} Normal Comp rehensive Internal Medicine Work Phone: Comment on above: Test performed at:[facility] [address] [place] [address] Globulin Calculated mass conc (S) 4.2 g/dL Abnormal 2.3-3.5 [facility] Work Phone: Globulin mass conc (S) 4.2 g/dL Abnormal 2.3-3.5 Co mprehensive Internal Medicine Work Phone: Comment on above: Test performed at:[facility] [address] [place] [address] Glucose mass conc 111 mg/dL Abnormal 70-110 Compreh ensive Internal Medicine Work Phone: Comment on above: Fasting Glucose resu lt from 110 to <126 mg/dLsuggests IMPAIRED HOMEOSTASIS per A.D.A. criteria. Test performed at:[facility] [address] [place] [address] HDLEMP 52 mg/dL Normal [facility] Work Phone: Comment on above: Reference Range HDL <40 mg/dL Low HDL Cholesterol HDL >or= 60 mg/dL High HDL Cholesterol LDH 190 U/L Normal 84-246 [facility] Work Phone: Phosphate mass conc 3.6 mg/dL Normal 2.5-4.9 Compr ehensive Internal Medicine Work Phone: Potassium molar conc 3.9 mmol/L Normal 3.5-5.1 Comp rehensive Internal Medicine Work Phone: Comment on above: Test performed at:[facility] [address] [place] [address] Protein mass conc 8.1 g/dL Normal 6.4-8.2 Compreh ensive Internal Medicine Work Phone: Comment on above: Test performed at:[facility] [address] [place] [address] Sodium molar conc 138 mmol/L Normal 136-145 Compreh ensive Internal Medicine Work Phone: Comment on above: Test performed at:[facility] [address] [place] [address] Triglyceride mass conc 113 mg/dL Normal Co mprehensive Internal Medicine Work Phone: Comment on above: Serum Triglycerides Reference Interval Normal <150 mg/dL Borderline high 150 - 199 mg/dL High 200 - 499 mg/dL Very High > or = 500 mg/dL Test performed at:[facility] [address] [place], [place] [id number] Urea nitrogen mass conc 16 mg/dL Normal 7-18 C omprehensive Internal Medicine Work Phone: Comment on above: Test performed at:[facility] [address] [place] [address] URIC 4.3 mg/dL Normal 2.6-6.0 [facility] Work Phone: Employee Profile 109 mL/min Normal Comprehe nsive Internal Medicine Work Phone: Comment on above: Test performed at:[facility] [address] [place] [address] Employee Profile 22.2 {RATIO} Abnormal 10-20 Compre hensive Internal Medicine Work Phone: Comment on above: Test performed at:[facility] [address] [place] [address] Employee Profile 4.3 mg/dL Normal 2.6-6.0 Comprehe nsive Internal Medicine Work Phone: Comment on above: Test performed at:[facility] [address] [place] [address] Employee Profile 3.6 mg/dL Normal 2.5-4.9 Comprehe nsive Internal Medicine Work Phone: Comment on above: Test performed at:[facility] [address] [place] [address] Employee Profile 85 U/L Normal 50-136 Comprehe nsive Internal Medicine Work Phone: Comment on above: Test performed at:[facility] [address] [place] [address] Employee Profile 52 mg/dL Normal Comprehe nsive Internal Medicine Work Phone: Comment on above: Reference Range HDL <40 mg/dL Low HDL Cholesterol HDL >or= 60 mg/dL High HDL Cholesterol Test performed at:[facility] [address] [place] [address] Employee Profile 23 mg/dL Normal 5-40 Comprehe nsive Internal Medicine Work Phone: Comment on above: Test performed at:[facility] [address] [place] [address] Employee Profile 190 U/L Normal 84-246 Comprehe nsive Internal Medicine Work Phone: Comment on above: Test performed at:[facility] [address] [place] [address] Employee Profile 4 1 Abnormal 5-15 Comprehe nsive Internal Medicine Work Phone: Comment on above: Test performed at:[facility] [address] [place] [address] Urinalysis, EmployeeOrdered By: Cane Weigher Helper on 02-20-2015 BILIRUBIN URINE Negative Normal [facility]hen [facility] Internal [facility] Work Phone: CLARITY Sl. Cloudy Normal [facility] Work Phone: Clarity Nom (U) Sl. Cloudy Normal Comprehen [facility] Internal [facility] Work Phone: Comment on above: Test performed at:[facility] [address] [place] [address] COLOR Yellow Normal [facility] Work Phone: Color Nom (U) Yellow Normal Comprehensi ve Internal Medicine Work Phone: Comment on above: Test performed at:[facility] [address] [place] [address] GLUCOSE, UR Normal Normal [facility] Work Phone: LEUK ESTERASE 500 /ul Abnormal Comprehensi ve Internal Medicine Work Phone: OCCULT BLOOD-UR 25 /ul Abnormal Comprehen sive Internal Medicine Work Phone: pH UR 5.0 1 Normal 5.0 - 8.0 [facility] Work Phone: SP.GR. DIPSTX 1.020 1 Normal 1.002-1.03 0 [facility] Work Phone: Urinalysis, Employee 5.0 1 Normal 5.0 - 8.0 Comp rehensive Internal Medicine Work Phone: Comment on above: Test performed at:[facility] [address] [place] [address] Urinalysis, Employee Normal Normal Comp rehensive Internal Medicine Work Phone: Comment on above: Test performed at:[facility] [address] [place] [address] Urinalysis, Employee Negative Normal Comp rehensive Internal Medicine Work Phone: Comment on above: Test performed at:[facility] [address] [place] [address] Urinalysis, Employee 25 /ul Abnormal Comp rehensive Internal Medicine Work Phone: Comment on above: Test performed at:[facility] [address] [place] [address] Urinalysis, Employee 1.020 1 Normal 1.002-1 .03 0 [facility] Work Phone: Comment on above: Test performed at:[facility] [address] [place] [address] Urinalysis, Employee 500 /ul Abnormal Comp rehensive Internal Medicine Work Phone: Comment on above: Test performed at:[facility] [address] [place] [address] Basic Metabolic Profile (BMP )Ordered By: Cane Weigher Helper on 11-15-2014 Basic metabolic 2000 panel 90 mg/dL Normal 70-110 [facility] Work Phone: Comment on above: Test performed at:[facility] [address] [place] [address] Basic metabolic 2000 panel 13 mg/dL Normal 7-18 [facility] Work Phone: Comment on above: Test performed at:[facility] [address] [place] [address] Basic metabolic 2000 panel 26.0 mmol/L Normal 21.0-32.0 [facility] Work Phone: Comment on above: Test performed at:[facility] [address] [place] [address] Basic metabolic 2000 panel 138 mmol/L Normal 136-145 [facility] Work Phone: Comment on above: Test performed at:[facility] [address] [place] [address] Basic metabolic 2000 panel 8 1 Normal 5-15 [facility] Work Phone: Comment on above: Test performed at:[facility] [address] [place] [address] Basic metabolic 2000 panel 9.0 mg/dL Normal 8.5-10.1 [facility] Work Phone: Comment on above: Test performed at:[facility] [address] [place] [address] Basic metabolic 2000 panel 16.3 {RATIO} Normal 10-20 [facility] Work Phone: Comment on above: Test performed at:[facility] [address] [place] [address] Basic metabolic 2000 panel 82.04 ml/min Normal [facility] Work Phone: Comment on above: Test performed at:[facility] [address] [place] [address] Basic metabolic 2000 panel 97 mL/min Normal [facility] Work Phone: Comment on above: Test performed at:[facility] [address] [place] [address] Basic metabolic 2000 panel 3.5 mmol/L Normal 3.5-5.1 [facility] Work Phone: Comment on above: Test performed at:[facility] [address] [place] [address] Basic metabolic 2000 panel 80 mL/min Normal [facility] Work Phone: Comment on above: Test performed at:[facility] [address] [place] [address] Basic metabolic 2000 panel 104 mmol/L Normal 98-107 [facility] Work Phone: Comment on above: Test performed at:[facility] [address] [place] [address] Basic metabolic 2000 panel 0.8 mg/dL Normal 0.6-1.0 [facility] Work Phone: Comment on above: Test performed at:[facility] [address] [place] [address] CBC W/Diff, AutomatedOrdered By: Cane Weigher Helper on 11-15-2014 Absolute Lymph 1.78 {X10_3/ul} Normal 0.83-4.51 Compr ehensive Internal Medicine Work Phone: Absolute Neut 5.6 {X10_3/uL} Normal 2.0-7.7 Compreh ensive Internal Medicine Work Phone: Comment on above: Test performed at:[facility] [address] [place] [address] Basophils/100 WBC (Bld) 0.2 % Normal 0-1 C omprehensive Internal Medicine Work Phone: Comment on above: Test performed at:[facility] [address] [place] [address] Basophils/100 WBC Auto (Bld) 0.2 % Normal 0-1 [facility] Work Phone: Eosinophils/100 WBC (Bld) 1.6 % Normal 0-5 [facility] Work Phone: Comment on above: Test performed at:[facility] [address] [place] [address] Eosinophils/100 WBC Auto (Bld) 1.6 % Normal 0-5 [facility] Work Phone: Erythrocyte distribution width Auto Ratio (RBC) 13.4 % Normal 11.6-14.6 [facility] Work Phone: Erythrocyte distribution width Ratio (RBC) 13.4 % Normal 11.6-14.6 [facility] Work Phone: Comment on above: Test performed at:[facility] [address] [place] [address] Hematocrit Auto Volume Fraction (Bld) 40.1 % Normal 37-47 [facility] Work Phone: Hematocrit Volume Fraction (Bld) 40.1 % Normal 37-47 [facility] Work Phone: Comment on above: Test performed at:[facility] [address] [place] [address] Hemoglobin mass conc (Bld) 14.1 g/dL Normal 12.0-15.0 [facility] Work Phone: Comment on above: Test performed at:[facility] [address] [place] [address] IM GRAN % 0.100 % Normal 0.0-0.9 [facility] Work Phone: Comment on above: IG% - Immature Granu locytes (promyelocytes, myelocytes andmetamyelocytes) > 1% indicates that a LEFT SHIFT is Present. Test performed at:[facility] [address] [place] [address] Lymphocytes #/vol (Bld) 1.78 {X10_3/ul} Normal 0.83-4. 51 [facility] Work Phone: Comment on above: Test performed at:[facility] [address] [place] [address] Lymphocytes/100 WBC (Bld) 22.2 % Normal 19-41 [facility] Work Phone: Comment on above: Test performed at:[facility] [address] [place] [address] Lymphocytes/100 WBC Auto (Bld) 22.2 % Normal 19-41 [facility] Work Phone: MCH Auto Entitic mass (RBC) 30.7 pg Normal 27.0-32.0 [facility] Work Phone: MCH Entitic mass (RBC) 30.7 pg Normal 27.0-32.0 [facility] Work Phone: Comment on above: Test performed at:[facility] [address] [place] [address] MCHC Auto mass conc (RBC) 35.2 {g/gl} Normal 32-36 [facility] Work Phone: MCHC mass conc (RBC) 35.2 {g/gl} Normal 32-36 [facility] prehensive Internal Medicine Work Phone: Comment on above: Test performed at:[facility] [address] [place] [address] MCV Auto Entitic volume (RBC) 87.2 fL Normal 81-99 [facility] Work Phone: MCV Entitic volume (RBC) 87.2 fL Normal 81-99 [facility] Work Phone: Comment on above: Test performed at:[facility] [address] [place] [address] Monocytes/100 WBC Auto (Bld) 6.4 % Normal 0-10 [facility] Work Phone: Comment on above: Test performed at:[facility] [address] [place] [address] Neutrophils/100 WBC (Bld) 69.5 % Normal 47-70 [facility] Work Phone: Comment on above: Test performed at:[facility] [address] [place] [address] Neutrophils/100 WBC Auto (Bld) 69.5 % Normal 47-70 [facility] Work Phone: Platelet mean volume Auto Entitic volume (Bld) 8.7 fL Normal 6.2-12.0 [facility] Work Phone: Platelet mean volume Entitic volume (Bld) 8.7 fL Normal 6.2-12.0 Comprehensi ve Internal Medicine Work Phone: Comment on above: Test performed at:[facility] [address] [place] [address] Platelets #/vol (Bld) 325 10*3/uL Normal 150-450 [facility] Work Phone: Comment on above: Test performed at:[facility] [address] [place] [address] Platelets Auto #/vol (Bld) 325 10*3/uL Normal 150-450 [facility] Work Phone: RBC #/vol (Bld) 4.60 {M/mm3} Normal 4.2-5.4 Compreh ensive Internal Medicine Work Phone: Comment on above: Test performed at:[facility] [address] [place] [address] RBC Auto #/vol (Bld) 4.60 {M/mm3} Normal 4.2-5.4 [facility] Work Phone: RDW SD 42.6 fL Normal 35.1-43.9 [facility] Work Phone: Comment on above: Test performed at:[facility] [address] [place] [address] WBC #/vol (Bld) 8.0 10*3/uL Normal 4.4-11.0 Comprehe nsive Internal Medicine Work Phone: Comment on above: Test performed at:[facility] [address] [place] [address] WBC Auto #/vol (Bld) 8.0 10*3/uL Normal 4.4-11.0 [facility] prehensive Internal Medicine Work Phone: CBC W/Diff, Automated 0.100 % Normal 0.0-0.9 [facility] prehensive Internal Medicine Work Phone: Comment on above: IG% - Immature Granu locytes (promyelocytes, myelocytes andmetamyelocytes) > 1% indicates that a LEFT SHIFT is Present. Test performed at:[facility] [address] [place] [address] CBC W/Diff, Automated 42.6 fL Normal 35.1-43.9 [facility] prehensive Internal Medicine Work Phone: Comment on above: Test performed at:[facility] [address] [place] [address] CBC W/Diff, Automated 5.6 {X10_3/uL} Normal 2.0-7.7 [facility] Internal Medicine Work Phone: Comment on above: Test performed at:[facility] [address] [place] [address] CBC W/Diff, Automated 1.78 {X10_3/ul} Normal 0.83-4.51 [facility] Internal Medicine Work Phone: Comment on above: Test performed at:[facility] [address] [place] [address]( Urinalysis, CompleteOrdered By: Cane Weigher Helper on 11-15-2014 Protein mass conc (U) Negative Normal [facility] prehensive Internal Medicine Work Phone: Comment on above: Order Date: 11/15/14 How was Urine Obtained? CLEAN CATCHTest performed at:[facility] [address] [place] [address] RBC #/vol (U) 0-5 SEEN Normal 0-5 Comprehensi ve Internal Medicine Work Phone: Comment on above: Order Date: 11/15/14 How was Urine Obtained? CLEAN CATCHTest performed at:[facility] [address] [place] [address] RBC Test strip #/vol (U) 0-5 SEEN Normal 0-5 [facility] Work Phone: Urinalysis complete panel - Urine 6.5 1 Normal 5.0 - 8.0 [facility] Work Phone: Comment on above: Order Date: 11/15/14 How was Urine Obtained? CLEAN CATCHTest performed at:[facility] [address] [place] [address] Urinalysis complete panel - Urine Negative Normal [facility] Work Phone: Comment on above: Order Date: 11/15/14 How was Urine Obtained? CLEAN CATCHTest performed at:[facility] [address] [place] [address] Urinalysis complete panel - Urine 0 SEEN Normal [facility] Work Phone: Comment on above: Order Date: 11/15/14 How was Urine Obtained? CLEAN CATCHTest performed at:[facility] [address] [facility] [place], [place] [id number] Urinalysis complete panel - Urine 0-5 SEEN Normal 5-10 [facility] Work Phone: Comment on above: Order Date: 11/15/14 How was Urine Obtained? CLEAN CATCHTest performed at:[facility] [address] [place] [address] Urinalysis complete panel - Urine 10 /ul Abnormal [facility] Work Phone: Comment on above: Order Date: 11/15/14 How was Urine Obtained? CLEAN CATCHTest performed at:[facility] [address] [place], [place] [id number] Urinalysis complete panel - Urine Normal Normal [facility] Work Phone: Comment on above: Order Date: 11/15/14 How was Urine Obtained? CLEAN CATCHTest performed at:[facility] [address] [place] [address] Urinalysis complete panel - Urine 1.005 1 Normal 1.002-1.03 0 [facility] Work Phone: Comment on above: Order Date: 11/15/14 How was Urine Obtained? CLEAN CATCHTest performed at:[facility] [address] [place] [address] Urinalysis complete panel - Urine Sl. Cloudy Normal [facility] Work Phone: Comment on above: Order Date: 11/15/14 How was Urine Obtained? CLEAN CATCHTest performed at:[facility] [address] [place], [place] [id number] Urinalysis complete panel - Urine Yellow Normal [facility] Work Phone: Comment on above: Order Date: 11/15/14 How was Urine Obtained? CLEAN CATCHTest performed at:[facility] [address] [place], [place] [address] [id number] By: System Man ager on 04-13-2014 PAPIG5 Comment Normal [facility] Work Phone: Comment on above: Satisfactory for scarlet luation. Endocervical and/or squamous metaplasticcells (endocervical component) are present. The HPV DNA reflex c mumtazeria were not met with this specimenresult therefore, no HPV testing was performed.Performed at: - [address] [id number] Director: Flora Crenshaw MD, Phone: [phone] The Pap smear is a s creening test designed to aid in thedetection of premalignant and malignant conditions of theuterine cervix. It is not a diagnostic procedure andshould not be used as the sole means of detecting cervicalcancer. Both false-positive and false-negative reports dooccur. This liquid based Th inPrep(R) pap test was screened withthe use of an image guided system. Saira Wells, Cytot echnologist (ASCP) NEGATIVE FOR INTRAEP ITHELIAL LESION AND MALIGNANCY.CELLULAR CHANGES ASSOCIATED WITH INFLAMMATION ARE PRESENT. CYTOLOGY INFORMATION :- CLINICAL INFORMATION:- DATE LMP/MENOPAUSE: 2012LMP- COLLECTION VIAL: Thin Prep Vial- SUPERINTENDENT INSTITUTION SOURCE: CERVICAL/ENDOCERVICAL- COLLECTION TECHNIQUE: BRUSH/SPATULASpecimen Comment: [id number] Comment: No. of containers..01 CYTYC Thin Prep Vial PAPIG5 . Normal [facility] Work Phone: Comment on above: CYTOLOGY INFORMATION :- CLINICAL INFORMATION:- DATE LMP/MENOPAUSE: 2012LMP- COLLECTION VIAL: Thin Prep Vial- SUPERINTENDENT INSTITUTION SOURCE: CERVICAL/ENDOCERVICAL- COLLECTION TECHNIQUE: BRUSH/SPATULASpecimen Comment: [id number] Comment: No. of containers..01 CYTYC Thin Prep Vial CBCEMOrdered By: Johnson love on 02-15-2014 Erythrocyte distribution width Auto Ratio (RBC) 13.5 % Normal 11.6-14.6 [facility] Work Phone: Erythrocyte distribution width Ratio (RBC) 13.5 % Normal 11.6-14.6 [facility] Work Phone: Comment on above: This patient request ed that [facility] Berg send to you acopy of their Yearly Employee Health Risk Assessment.A copy of this report is also given to the patient so theycan follow up with your office if they choose. Hematocrit Auto Volume Fraction (Bld) 41.1 % Normal 37-47 [facility] Work Phone: Hematocrit Volume Fraction (Bld) 41.1 % Normal 37-47 [facility] Work Phone: Comment on above: This patient request ed that [facility] Berg send to you acopy of their Yearly Employee Health Risk Assessment.A copy of this report is also given to the patient so theycan follow up with your office if they choose. Hemoglobin mass conc (Bld) 14.4 g/dL Normal 12.0-15.0 [facility] Work Phone: Comment on above: This patient request ed that [facility] [employer] send to you acopy of their Yearly Employee Health Risk Assessment.A copy of this report is also given to the patient so theycan follow up with your office if they choose. MCH Auto Entitic mass (RBC) 31.0 pg Normal 27.0-32.0 [facility] Internal Medicine Work Phone: MCH Entitic mass (RBC) 31.0 pg Normal 27.0-32.0 [facility] Work Phone: Comment on above: This patient request ed that [facility] [employer] send to you acopy of their Yearly Employee Health Risk Assessment.A copy of this report is also given to the patient so theycan follow up with your office if they choose. MCHC Auto mass conc (RBC) 35.0 {g/gl} Normal 32-36 [facility] Work Phone: MCHC mass conc (RBC) 35.0 {g/gl} Normal 32-36 [facility] prehensive Internal Medicine Work Phone: Comment on above: This patient request ed that [facility] [employer] send to you acopy of their Yearly Employee Health Risk Assessment.A copy of this report is also given to the patient so theycan follow up with your office if they choose. MCV Auto Entitic volume (RBC) 88.4 fL Normal 81-99 [facility] Work Phone: MCV Entitic volume (RBC) 88.4 fL Normal 81-99 [facility] Internal Medicine Work Phone: Comment on above: This patient request ed that [facility] send to you acopy of their Yearly Employee Health Risk Assessment.A copy of this report is also given to the patient so theycan follow up with your office if they choose. Platelet mean volume Auto Entitic volume (Bld) 9.1 fL Normal 6.2-12.0 [facility] Internal Medicine Work Phone: Platelet mean volume Entitic volume (Bld) 9.1 fL Normal 6.2-12.0 Comprehensi Internal Medicine Work Phone: Comment on above: This patient request ed that [facility] [employer] send to you acopy of their Yearly Employee Health Risk Assessment.A copy of this report is also given to the patient so theycan follow up with your office if they choose. Platelets #/vol (Bld) 298 10*3/uL Normal 150-450 Co [facility] Internal Medicine Work Phone: Comment on above: This patient request ed that [facility] [employer] send to you acopy of their Yearly Employee Health Risk Assessment.A copy of this report is also given to the patient so theycan follow up with your office if they choose. Platelets Auto #/vol (Bld) 298 10*3/uL Normal 150-450 [facility] Work Phone: RBC #/vol (Bld) 4.65 {M/mm3} Normal 4.2-5.4 Compreh [facility] Work Phone: Comment on above: This patient request ed that [facility] [employer] send to you acopy of their Yearly Employee Health Risk Assessment.A copy of this report is also given to the patient so theycan follow up with your office if they choose. RBC Auto #/vol (Bld) 4.65 {M/mm3} Normal 4.2-5.4 [facility] Internal Medicine Work Phone: WBC #/vol (Bld) 6.7 10*3/uL Normal 4.4-11.[address] [facility] Internal Medicine Work Phone: Comment on above: This patient request ed that [facility] [employer] send to you acopy of their Yearly Employee Health Risk Assessment.A copy of this report is also given to the patient so theycan follow up with your office if they choose. WBC Auto #/vol (Bld) 6.7 10*3/uL Normal 4.4-11.0 [facility] Internal Medicine Work Phone: CBCEM 1.9 % Normal 0-5 [facility] Internal Medicine Work Phone: Comment on above: This patient request ed that [facility] [employer] send to you acopy of their Yearly Employee Health Risk Assessment.A copy of this report is also given to the patient so theycan follow up with your office if they choose. CBCEM 8.5 % Normal 0-10 [facility] Internal Medicine Work Phone: Comment on above: This patient request ed that [facility] [employer] send to you acopy of their Yearly Employee Health Risk Assessment.A copy of this report is also given to the patient so theycan follow up with your office if they choose. CBCEM 28.9 % Normal 19-41 [facility] Work Phone: Comment on above: This patient request ed that [facility] [employer] send to you acopy of their Yearly Employee Health Risk Assessment.A copy of this report is also given to the patient so theycan follow up with your office if they choose. CBCEM 43.5 fL Normal 35.1-43.9 [facility] Work Phone: Comment on above: This patient request ed that [facility] [employer] send to you acopy of their Yearly Employee Health Risk Assessment.A copy of this report is also given to the patient so theycan follow up with your office if they choose. CBCEM 60.1 % Normal 47-70 [facility] Work Phone: Comment on above: This patient request ed that [facility] [employer] send to you acopy of their Yearly Employee Health Risk Assessment.A copy of this report is also given to the patient so theycan follow up with your office if they choose. CBCEM 0.3 % Normal 0-1 [facility] Work Phone: Comment on above: This patient request ed that [facility] [employer] send to you acopy of their Yearly Employee Health Risk Assessment.A copy of this report is also given to the patient so theycan follow up with your office if they choose. CBCEM 1.94 {X10_3/ul} Normal 0.83-4.51 Comprehen sive Internal Medicine Work Phone: Comment on above: This patient request ed that [facility] [employer] send to you acopy of their Yearly Employee Health Risk Assessment.A copy of this report is also given to the patient so theycan follow up with your office if they choose. CBCEM 4.0 {X10_3/uL} Normal 2.0-7.7 Comprehens [facility] Internal Medicine Work Phone: Comment on above: This patient request ed that [facility] [employer] send to you acopy of their Yearly Employee Health Risk Assessment.A copy of this report is also given to the patient so theycan follow up with your office if they choose. EMPOrdered By: System Manage r on 02-15-2014 Albumin mass conc 3.7 g/dL Normal 3.4-5.0 [facility] Internal Medicine Work Phone: Comment on above: This patient request ed that [facility] [employer] send to you acopy of their Yearly Employee Health Risk Assessment.A copy of this report is also given to the patient so theycan follow up with your office if they choose. Albumin/Globulin mass ratio 0.9 {RATIO} Normal 0.9-2.4 [facility] Internal Medicine Work Phone: Comment on above: This patient request ed that [facility] [employer] send to you acopy of their Yearly Employee Health Risk Assessment.A copy of this report is also given to the patient so theycan follow up with your office if they choose. ALT enzyme act/vol 60 U/L Normal 12-78 [facility] Internal Medicine Work Phone: Comment on above: This patient request ed that [facility] [employer] send to you acopy of their Yearly Employee Health Risk Assessment.A copy of this report is also given to the patient so theycan follow up with your office if they choose. AST enzyme act/vol 30 U/L Normal 15-37 [facility] Internal Medicine Work Phone: Comment on above: This patient request ed that [facility] [employer] send to you acopy of their Yearly Employee Health Risk Assessment.A copy of this report is also given to the patient so theycan follow up with your office if they choose. Calcium mass conc 8.4 mg/dL Abnormal 8.5-10.1 [facility] Internal Medicine Work Phone: Comment on above: This patient request ed that [facility] [employer] send to you acopy of their Yearly Employee Health Risk Assessment.A copy of this report is also given to the patient so theycan follow up with your office if they choose. Chloride molar conc 106 mmol/L Normal 98-107 [facility] Internal Medicine Work Phone: Comment on above: This patient request ed that [facility] [employer] send to you acopy of their Yearly Employee Health Risk Assessment.A copy of this report is also given to the patient so theycan follow up with your office if they choose. Cholesterol in HDL mass conc 46 mg/dL Normal [facility] Internal Medicine Work Phone: Comment on above: Reference RangeHDL < 40 mg/dL Low HDL CholesterolHDL >or= 60 mg/dL High HDL Cholesterol This patient request ed that [facility] [employer] send to you acopy of their Yearly Employee Health Risk Assessment.A copy of this report is also given to the patient so theycan follow up with your office if they choose. Cholesterol in LDL mass conc 108 mg/dL Normal 0-130 [facility] Internal Medicine Work Phone: Comment on above: This patient request ed that [facility] [employer] send to you acopy of their Yearly Employee Health Risk Assessment.A copy of this report is also given to the patient so theycan follow up with your office if they choose. Cholesterol mass conc 177 mg/dL Normal [facility] Internal Medicine Work Phone: Comment on above: <200 mg/dL Desirable 200-240 mg/dL Borderline>240 mg/dL High Risk This patient request ed that [facility] [employer] send to you acopy of their Yearly Employee Health Risk Assessment.A copy of this report is also given to the patient so theycan follow up with your office if they choose. CO2 molar conc 25.0 mmol/L Normal 21.0-32.0 [facility] Internal Medicine Work Phone: Comment on above: [facility] of their Yearly Employee Health Risk Assessment.A copy of this report is also given to the patient so theycan follow up with your office if they choose. Creatinine mass conc 0.8 mg/dL Normal 0.6-1.0 [facility] Work [facility]: Comment on above: This patient request ed that [facility] [employer] send to you acopy of their Yearly Employee Health Risk Assessment.A copy of this report is also given to the patient so theycan follow up with your office if they choose. GFR/1.73 sq M predicted among non-blacks MDRD vol rate/area (S/P/Bld) 80 mL/min/{1.73_m2} Normal [facility] Work Phone: Comment on above: This [facility] of their Yearly Employee Health Risk Assessment.A copy of this report is also given to the patient so theycan follow up with your office if they choose. Globulin Calculated mass conc (S) 4.1 g/dL Normal 2.7-4.2 [facility] Work Phone: Globulin mass conc (S) 4.1 g/dL Normal 2.7-4.2 Co [facility] Internal Medicine Work Phone: Comment on above: This patient request ed that [facility] to you acopy of their Yearly Employee Health Risk Assessment.A copy of this report is also given to the patient so theycan follow up with your office if they choose. Glucose mass conc 111 mg/dL Abnormal 70-110 [facility] Work Phone: Comment on above: Fasting Glucose resu lt from 110 to <126 mg/dLsuggests IMPAIRED HOMEOSTASIS per A.D.A. criteria. This patient request ed that [facility] send to you acopy of their Yearly Employee Health Risk Assessment.A copy of this report is also given to the patient so theycan follow up with your office if they choose. Potassium molar conc 3.7 mmol/L Normal 3.5-5.1 [facility] Internal Medicine Work Phone: Comment on above: This [facility] of their Yearly Employee Health Risk Assessment.A copy of this report is also given to the patient so theycan follow up with your office if they choose. Protein mass conc 7.8 g/dL Normal 6.4-8.2 Compreh ensive Internal Medicine Work Phone: Comment on above: This patient request ed that [facility] send to you acopy of their Yearly Employee Health Risk Assessment.A copy of this report is also given to the patient so theycan follow up with your office if they choose. Sodium molar conc 138 mmol/L Normal 136-145 Compreh ensive Internal Medicine Work Phone: Comment on above: This patient request ed that [facility] to you acopy of their Yearly Employee Health Risk Assessment.A copy of this report is also given to the patient so theycan follow up with your office if they choose. Triglyceride mass conc 116 mg/dL Normal 0-199 [facility] Work Phone: Comment on above: Serum Triglycerides Reference IntervalNormal <150 mg/dLBorderline high 150 - 199 mg/dLHigh 200 - 499 mg/dLVery High > or = 500 mg/dL This patient [facility] ed [facility] you acopy of their Yearly Employee Health Risk Assessment.A copy of this report is also given to the patient so theycan follow up with your office if they choose. Urea nitrogen mass conc 15 mg/dL Normal 7-18 C [facility] Internal Medicine Work Phone: Comment on above: This patient request ed that [facility] send to you acopy of their Yearly Employee Health Risk Assessment.A copy of this report is also given to the patient so theycan follow up with your office if they choose. EMP 18.8 {RATIO} Normal 10-20 Comprehens e Internal Medicine Work Phone: Comment on above: This patient request ed that [facility] send to you acopy of their Yearly Employee Health Risk Assessment.A copy of this report is also given to the patient so theycan follow up with your office if they choose. EMP 97 mL/min Normal [facility] Internal Medicine Work Phone: Comment on above: This patient request ed that [facility] send to you acopy of their Yearly Employee Health Risk Assessment.A copy of this report is also given to the patient so theycan follow up with your office if they choose. EMP 178 U/L Normal 87-241 [facility] Work Phone: Comment on above: This patient request ed that [facility] send to you acopy of their Yearly Employee Health Risk Assessment.A copy of this report is also given to the patient so theycan follow up with your office if they choose. EMP 23 mg/dL Normal 5-40 [facility] Work Phone: Comment on above: This patient request ed that [facility] send to you acopy of their Yearly Employee Health Risk Assessment.A copy of this report is also given to the patient so theycan follow up with your office if they choose. EMP 46 mg/dL Normal [facility] Work Phone: Comment on above: Reference RangeHDL < 40 mg/dL Low HDL CholesterolHDL >or= 60 mg/dL High HDL Cholesterol This patient request ed that [facility] send to you acopy of their Yearly Employee Health Risk Assessment.A copy of this report is also given to the patient so theycan follow up with your office if they choose. EMP 7 1 Normal 5-15 [facility] Work Phone: Comment on above: This patient request ed that [facility] send to you acopy of their Yearly Employee Health Risk Assessment.A copy of this report is also given to the patient so theycan follow up with your office if they choose. EMP 0.08 mg/dL Normal 0.00-0.30 [facility] Work Phone: Comment on above: This patient request ed that [facility] send to you acopy of their Yearly Employee Health Risk Assessment.A copy of this report is also given to the patient so theycan follow up with your office if they choose. EMP 0.30 mg/dL Normal 0.00-1.00 [facility] Work Phone: Comment on above: This patient request ed that [facility] send to you acopy of their Yearly Employee Health Risk Assessment.A copy of this report is also given to the patient so theycan follow up with your office if they choose. EMP 79 U/L Normal 45-117 [facility] Work Phone: Comment on above: This patient request ed that [facility] send to you acopy of their Yearly Employee Health Risk Assessment.A copy of this report is also given to the patient so theycan follow up with your office if they choose. EMP 4.1 mg/dL Normal 2.5-4.9 [facility] Work Phone: Comment on above: This patient request ed that [facility] send to you acopy of their Yearly Employee Health Risk Assessment.A copy of this report is also given to the patient so theycan follow up with your office if they choose. EMP 5.1 mg/dL Normal 2.6-6.0 [facility] Work Phone: Comment on above: This patient request ed that [facility] send to you acopy of their Yearly Employee Health Risk Assessment.A copy of this report is also given to the patient so theycan follow up with your office if they choose. UAEMOrdered By: System Manag er on 02-15-2014 UAEM Normal Normal [facility] Work Phone: Comment on above: This patient request ed that [facility] send to you acopy of their Yearly Employee Health Risk Assessment.A copy of this report is also given to the patient so theycan follow up with your office if they choose. UAEM Clear Normal [facility] Work Phone: Comment on above: This patient request ed that [facility] send to you acopy of their Yearly Employee Health Risk Assessment.A copy of this report is also given to the patient so theycan follow up with your office if they choose. UAEM Yellow Normal [facility] Work Phone: Comment on above: This patient request ed that [facility] send to you acopy of their Yearly Employee Health Risk Assessment.A copy of this report is also given to the patient so theycan follow up with your office if they choose. UAEM 500 /ul Abnormal [facility] Work Phone: Comment on above: This patient request ed that [facility] send to you acopy of their Yearly Employee Health Risk Assessment.A copy of this report is also given to the patient so theycan follow up with your office if they choose. UAEM 25 /ul Abnormal [facility] Work Phone: Comment on above: This patient request ed that [facility] send to you acopy of their Yearly Employee Health Risk Assessment.A copy of this report is also given to the patient so theycan follow up with your office if they choose. UAEM Negative Normal [facility] Work Phone: Comment on above: This patient request ed that [facility] send to you acopy of their Yearly Employee Health Risk Assessment.A copy of this report is also given to the patient so theycan follow up with your office if they choose. UAEM 7.0 1 Normal 5.0 - 8.0 [facility] Work Phone: Comment on above: This patient request ed that [facility] send to you acopy of their Yearly Employee Health Risk Assessment.A copy of this report is also given to the patient so theycan follow up with your office if they choose. UAEM 1.015 1 Normal 1.002-1.03 0 [facility] Work Phone: Comment on above: This patient request ed that [facility] to you acopy of their Yearly Employee Health Risk Assessment.A copy of this report is also given to the patient so theycan follow up with your office if they choose. HgA1C , Office ([id number])Ordere d By: Elvie Patterson on 02-18-2013 Hemoglobin A1c/Hemoglobin.total mass fraction (Bld) 5.6 % Normal 4.6 - 7.1 Comprehensiv e Internal Medicine Work Phone: BILAT SCRN DIGITAL & CADOrde red By: Cane Weigher Helper on 11-04-2012 BILAT SCRN DIGITAL & CAD See Note Normal [facility] Work Phone: Comment on above: MAMMOGRAPHY - BILATE RAL SCREENING REASON FOR EXAM: Female, 52 years old. Routine annual screeningexamination. PERTINENT HISTORY: Non-contributory. TECHNIQUE: Digital examination. Mediolateral oblique (MLO) andcraniocaudad (CC) views of both breasts were obtained. CAD: CAD wasperformed on this study. COMPARISON: Comparison is made with prior study dated July 17nd July 18, 2010. FINDINGS:The breast composition is heterogeneously dense - ranging from 51% to 75%of the breast tissue. There are no dominant masses or suspicious calcifications. No other significant abnormalities are identified. There has been nosignificant change since the prior study. IMPRESSION:Stable bilateral screening mammogram. Yearly follow-up recommended. (A) ASSESSMENT CATEGORY:BIRADS Category 2: Benign finding(s). A letter regarding these resultswill be sent to the patient by the facility within 30 days. Approximately 10% of breast cancers are not detected by mammography. Anormal mammogram should not delay biopsy of a clinically suspiciousabnormality. Signed:Vadim Wei M.D.November 04, 2012 at 1:28:43 PM [id number] Signed GP/GP If you are the referring physician and would like to consult with theradiologist who provided this interpretation, please contact Kurt Delgado at [phone]. If this radiologist is unavailable, youwill be directed to another radiologist to assist. If you are a patient with a question regarding this report, pleasecontactyour referring physician directly. Professional Interpretation Provided By: [employer], Phone , These documents contain legally protected and confidential healthinformation intended only for the use of the individual or entity namedabove. If you are not the intended recipient, you are hereby notifiedthatany disclosure, copying, distribution, or other use of these documents isstrictly prohibited. If you have received this information in error,pleasenotify the sender immediately and arrange for the return or destructionofthese documents. Dictated on 11/04/12 1328 by Viktoria Wei MDranscribed on 11/04/12 1330 by ITS IMPORTSign by Vadim Wei MD on 11/04/12 1331 Sign by: Vadim Wei MD HgA1C , Office ([id number])Ordere d By: Luis Payne on 02-13-2012 Hemoglobin A1c/Hemoglobin.total mass fraction (Bld) 5.6 % Normal 4.6 - 7.1 Comprehensiv e Internal Medicine Work Phone: CHOLANGIOGRAM/ O R,INITIALOr dered By: Cane Weigher Helper on 02-09-2010 CHOLANGIOGRAM/ O R,INITIAL See Note Normal [facility] Work Phone: Comment on above: Exam Number: [id number] History: 49-year-old female with cholelithiasis. Exam: Intraoperative cholangiogram. Findings: A series of 73 digital images exposed intraoperativelyusing the portable C-arm during performance of an intraoperativecholangiogram shows satisfactory opacification of the intrahepaticbiliary radicles, common hepatic duct, common bile duct, and cysticduct remnant. There is satisfactory efflux of contrast materialinto the duodenum. There is no persistent intraluminal fillingdefect or contrast extravasation. IMPRESSION: Normal intraoperative cholangiogram. Reported By: DAVID FARMER M.D. CBC, EMPLOYEEOrdered By: robert tem Assistant [employer] on 01-23-2010 Hematocrit Auto Volume Fraction (Bld) 38.9 % Normal 37-47 [facility] Work Phone: Hematocrit Volume Fraction (Bld) 38.9 % Normal 37-47 [facility] Work Phone: MCV Auto Entitic volume (RBC) 89.8 fL Normal 81-99 [facility] Work Phone: Platelets #/vol (Bld) 238 10*3/uL Normal 150-450 [facility] Work Phone: RBC #/vol (Bld) 4.33 {M/mm3} Normal 4.2-5.4 Compreh ensive Internal Medicine Work Phone: RBC Auto #/vol (Bld) 4.33 {M/mm3} Normal 4.2-5.4 Co mprehensive Internal Medicine Work Phone: WBC Auto #/vol (Bld) 7.3 10*3/uL Normal 4.4-11.0 Com prehensive Internal Medicine Work Phone: CBCDOrdered By: System Manag er on 01-23-2010 Basophils/100 WBC (Bld) 0.5 % Normal 0-1 C omprehensive Internal Medicine Work Phone: Basophils/100 WBC Auto (Bld) 0.5 % Normal 0-1 [facility] Work Phone: Eosinophils/100 WBC (Bld) 1.2 % Normal 0-5 [facility] Work Phone: Eosinophils/100 WBC Auto (Bld) 1.2 % Normal 0-5 [facility] Work Phone: Erythrocyte distribution width Auto Ratio (RBC) 13.8 % Normal 11.6-14.6 [facility] Work Phone: Erythrocyte distribution width Ratio (RBC) 13.8 % Normal 11.6-14.6 [facility] Work Phone: Hemoglobin mass conc (Bld) 13.4 g/dL Normal 12.0-16.0 [facility] Work Phone: Lymphocytes/100 WBC (Bld) 24.6 % Normal 19-41 [facility] Work Phone: Lymphocytes/100 WBC Auto (Bld) 24.6 % Normal 19-41 [facility] Work Phone: MCH Auto Entitic mass (RBC) 31.0 pg Normal 27.0-32.0 [facility] Work Phone: MCH Entitic mass (RBC) 31.0 pg Normal 27.0-32.0 [facility] Work Phone: MCHC Auto mass conc (RBC) 34.6 g/dL Normal 32-36 [facility] Work Phone: MCHC mass conc (RBC) 34.6 g/dL Normal 32-36 [facility] Work Phone: MCV Entitic volume (RBC) 89.8 fL Normal 81-99 [facility] Work Phone: Monocytes/100 WBC (Bld) 7.0 % Normal 0-10 [facility] Work Phone: Monocytes/100 WBC Auto (Bld) 7.0 % Normal 0-10 [facility] Work Phone: Neutrophils #/vol (Bld) 4.9 3/uL Normal 2.0-7.7 [facility] Work Phone: Neutrophils Auto #/vol (Bld) 4.9 3/uL Normal 2.0-7.7 [facility] Work Phone: Neutrophils/100 WBC (Bld) 66.7 % Normal 47-70 [facility] Work Phone: Neutrophils/100 WBC Auto (Bld) 66.7 % Normal 47-70 [facility] Work Phone: Platelet mean volume Auto Entitic volume (Bld) 9.4 fL Normal 6.5-12.0 [facility] Work Phone: Platelet mean volume Entitic volume (Bld) 9.4 fL Normal 6.5-12.0 Comprehensi ve Internal Medicine Work Phone: Platelets Auto #/vol (Bld) 238 10*3/uL Normal 150-450 [facility] Work Phone: WBC #/vol (Bld) 7.3 10*3/uL Normal 4.4-11.0 Comprehe nsive Internal Medicine Work Phone: EMP PROFOrdered By: Johnson umana on 01-23-2010 Albumin mass conc 3.8 g/dL Normal 3.4-5.0 Compreh ensive Internal Medicine Work Phone: Albumin/Globulin mass ratio 0.9 {RATIO} Normal 0.9-2.4 [facility] Work Phone: ALP enzyme act/vol 72 U/L Normal 50-136 Compre hensive Internal Medicine Work Phone: AST enzyme act/vol 30 U/L Normal 15-37 Compre hensive Internal Medicine Work Phone: Bilirubin mass conc 0.30 mg/dL Normal 0.00-1.00 Compr ehensive Internal Medicine Work Phone: Calcium mass conc 8.6 mg/dL Normal 8.5-10.1 Compreh ensive Internal Medicine Work Phone: Cholesterol in HDL mass conc 47 mg/dL Normal [facility] Work Phone: Comment on above: Reference RangeHDL < 40 mg/dL Low HDL CholesterolHDL >or= 60 mg/dL High HDL Cholesterol Cholesterol in LDL mass conc 111 mg/dL Normal 0-130 [facility] Work Phone: Cholesterol in VLDL mass conc 22 mg/dL Normal 5-40 [facility] Work Phone: Cholesterol mass conc 180 mg/dL Normal Com prehensive Internal Medicine Work Phone: Comment on above: <200 mg/dL Desirable 200-240 mg/dL Borderline>240 mg/dL High Risk Creatinine mass conc 0.7 mg/dL Normal 0.6-1.0 Comp rehensive Internal Medicine Work Phone: GFR/1.73 sq M predicted among blacks MDRD vol rate/area (S/P/Bld) 115 mL/min/{1.73_m2} Normal Compreh ensive Internal Medicine Work Phone: GFR/1.73 sq M.predicted MDRD vol rate/area 95 mL/min/{1.73_m2} Normal [facility] Work Phone: Globulin Calculated mass conc (S) 4.3 g/dL Abnormal 2.7-4.2 [facility] Work Phone: Globulin mass conc (S) 4.3 g/dL Abnormal 2.7-4.2 [facility] Work Phone: Glucose mass conc 101 mg/dL Normal 70-110 Compreh ensive Internal Medicine Work Phone: LDH enzyme act/vol 176 U/L Normal 100-190 Compre hensive Internal Medicine Work Phone: Protein mass conc 8.1 g/dL Normal 6.4-8.2 Compreh ensive Internal Medicine Work Phone: Triglyceride mass conc 112 mg/dL Normal [facility] Work Phone: Comment on above: Serum Triglycerides Reference IntervalNormal <150 mg/dLBorderline high 150 - 199 mg/dLHigh 200 - 499 mg/dLVery High > or = 500 mg/dL Urea nitrogen mass conc 16 mg/dL Normal 7-18 C omprehensive Internal Medicine Work Phone: Urea nitrogen/Creatinine mass ratio 22.9 {RATIO} Abnormal 10-20 [facility] Work Phone: EMP PROF 3.8 mg/dL Normal 2.5-4.9 [facility] Work Phone: EMP PROF 4.7 mg/dL Normal 2.6-6.0 [facility] Work Phone: EMP URINALYSISOrdered By: Homero stem Assistant [employer] on 01-23-2010 Clarity Nom (U) SeeNote Normal [facility] Work Phone: Comment on above: Result: SL CLOUDY Color Nom (U) YELLOW Normal Comprehensi ve Internal Medicine Work Phone: Protein mass conc SeeNote Normal Compreh ensive Internal Medicine Work Phone: Comment on above: Result: NEGATIVE Protein mass conc (U) SeeNote Normal Com prehensive Internal Medicine Work Phone: Comment on above: Result: NEGATIVE EMP URINALYSIS 3+ Abnormal Comprehens [facility] Internal [facility] Work Phone: EMP URINALYSIS 0.2 EU/dl Normal 0.2 - 1.0 Comprehens [facility] Work Phone: EMP URINALYSIS 1.025 1 Normal 1.002-1.03 0 [facility] Work Phone: EMP URINALYSIS 6.0 1 Normal 5.0-8.0 Comprehens [facility] Work Phone: EMP URINALYSIS YELLOW Normal Comprehens [facility] Internal Medicine Work Phone: GALLBLADDEROrdered By: Nannette nichols Assistant [employer] on 01-23-2010 GALLBLADDER See Note Normal [facility] Work Phone: Comment on above: Exam Number: [id number] CLINICAL:49 year old female with right upper quadrant pain and nausea. ABDOMINAL ULTRASOUND TECHNIQUE:Transabdominal COMPARISON:None. FINDINGS:There is increased echogenicity consistent with diffuse fattyinfiltration of the liver. There is no dilatation of the intrahepatic or extrahepatic bileducts. The common bile duct measures 3.4 mm. Normal intrahepaticbile ducts. Several mobile gallstones are noted, clustered in a region measuringapproximately 2.0 x 1.6 x 1.3 cm. Normal visualized head and body of the pancreas. The tail of thepancreas is obscured by bowel gas. Normal right kidney. The right kidney measures 12.7 x 4.7 x 6.0 cm. There is no pelvicalyceal dilatation of the right kidney. Normal visualized abdominal aorta. Normal visualized inferior venacava. There is no ascites. IMPRESSION:1. Multiple mobile small gallstones, without evidence of acutecholecystitis. 2. Fatty liver. Reported By: CAMRYN PANCHAL M.D. Result: NEGATIVE Result: SL CLOUDY LIVEROrdered By: System Arabella love on 01-23-2010 Albumin mass conc 3.9 g/dL Normal 3.4-5.0 [facility] Internal Medicine Work Phone: ALP enzyme act/vol 80 U/L Normal 50-136 Compre [facility] Internal Medicine Work Phone: ALT enzyme act/vol 58 U/L Normal 12-78 Compre [facility] Internal Medicine Work Phone: AST enzyme act/vol 28 U/L Normal 15-37 [facility] Internal Medicine Work Phone: Bilirubin.direct mass conc 0.10 mg/dL Normal 0.00-0.30 [facility] Internal Medicine Work Phone: Protein mass conc 8.2 g/dL Normal 6.4-8.2 [facility] Internal [facility] Work Phone: Vital Signs Date Time Vital Sign Value Performing Clinician Facility 02-08-2025 10:32-0400 Body height 170.[address] Charo Swenson DO Work Phone: [facility] 02-08-2025 10:32-0400 Body mass index (BMI) [Ratio] 33.8 kg/m2 Dr. Charo Swenson DO Work Phone: [facility] 02-08-2025 10:32-0400 Body weight 97.[address] Charo Swenson DO Work Phone: [facility] 12-06-2024 14:58-0400 Body height 170.[address] Charo Swenson DO Work Phone: [facility] 12-06-2024 14:58-0400 Body weight 101.[address] Charo Swenson DO Work Phone: [facility] 11-04-2024 12:00-0400 Body height 170.[address] Charo Swenson DO Work Phone: [facility] 11-04-2024 12:00-0400 Body mass index (BMI) [Ratio] 35.5 kg/m2 Dr. Charo Swenson DO Work Phone: [facility] 11-04-2024 12:00-0400 Body weight 102.[address] Charo Swenson DO Work Phone: [facility] 11-01-2024 10:04-0400 Body height 170.[address] Charo Swenson DO Work Phone: [facility] 10-30-2024 09:00-0400 Body temperature 98.7 [degF] Dr. Charo Swenson DO Work Phone: [facility] 10-30-2024 09:00-0400 Diastolic blood pressure 84 mm[Hg] Dr. Charo Swenson DO Work Phone: [facility] 10-30-2024 09:00-0400 Heart rate 82 /min Dr. Charo Swenson DO Work Phone: [facility] 10-30-2024 09:00-0400 Respiratory rate 17 /min Dr. Charo Swenson DO Work Phone: [facility] 10-30-2024 09:00-0400 SaO2% (BldA) [Mass fraction] 97 % Dr. Charo Swenson DO Work Phone: [facility] 10-30-2024 09:00-0400 Systolic blood pressure 142 mm[Hg] Dr. Charo Swenson DO Work Phone: [facility] 07-07-2024 08:42-0500 Body height 170.[address] Charo Swenson DO Work Phone: [facility] 07-07-2024 08:42-0500 Body mass index (BMI) [Ratio] 34 kg/m2 Dr. Charo Swenson DO Work Phone: [facility] 07-07-2024 08:42-0500 Body weight 98.[address] Charo Swenson DO Work Phone: [phone] [place] [address] 03-26-2023 08:58-0400 Body height 172.72 cm [facility]; [facility] Work Phone: 03-26-2023 08:58-0400 Body mass index (BMI) [Ratio] 36.57 kg/m2 [facility]; [facility] Work Phone: 03-26-2023 08:58-0400 Body surface area Derived from formula 2.21 m2 [facility]; [facility] Work Phone: 03-26-2023 08:58-0400 Body temperature 97.4 [degF] [facility]; [facility] Work Phone: 03-26-2023 08:58-0400 Body weight 109.09 kg [facility]; [facility] Work Phone: 03-26-2023 08:58-0400 Diastolic blood pressure 76 mm[Hg] [facility]; [facility] Work Phone: 03-26-2023 08:58-0400 Heart rate 82 /min [facility]; [facility] Work Phone: 03-26-2023 08:58-0400 Respiratory rate 18 /min [facility]; [facility] Work Phone: 03-26-2023 08:58-0400 SaO2% (BldA) [Mass fraction] 96 % [facility]; [facility] Work Phone: 03-26-2023 08:58-0400 Systolic blood pressure 132 mm[Hg] [facility]; [facility] Work Phone: 09-18-2022 14:42-0400 Body height 172.72 cm Richard Landeros [facility]; [facility] Work Phone: 09-18-2022 14:42-0400 Body mass index (BMI) [Ratio] 34.91 kg/m2 [facility]; [facility] Work Phone: 09-18-2022 14:42-0400 Body surface area Derived from formula 2.17 m2 [facility]; [facility] Work Phone: 09-18-2022 14:42-0400 Body temperature 97.6 [degF] [facility]; [facility] Work Phone: 09-18-2022 14:42-0400 Body weight 104.15 kg [facility]; [facility] Work Phone: 09-18-2022 14:42-0400 Diastolic blood pressure 80 mm[Hg] [facility]; [facility] Work Phone: Comment on above: Patient Position: Sitting; Cuff Location : Left Arm; Cuff Size: Standard 09-18-2022 14:42-0400 Heart rate 79 /min [facility]; [facility] Work Phone: Comment on above: Pattern: Regular 09-18-2022 14:42-0400 Respiratory rate 16 /min [facility]; [facility] Work Phone: Comment on above: Pattern: Unlabored 09-18-2022 14:42-0400 SaO2% (BldA) [Mass fraction] 97 % [facility]; [facility] Work Phone: Comment on above: Room air 09-18-2022 14:42-0400 Systolic blood pressure 130 mm[Hg] [facility]; [facility] Work Phone: Comment on above: Patient Position: Sitting; Cuff Location : Left Arm; Cuff Size: Standard 09-02-2022 13:35-0400 Body height 172.72 cm [facility]; [facility] Work Phone: 09-02-2022 13:35-0400 Body mass index (BMI) [Ratio] 34.91 kg/m2 [facility]; [facility] Work Phone: 09-02-2022 13:35-0400 Body surface area Derived from formula 2.17 m2 [facility]; [facility] Work Phone: 09-02-2022 13:35-0400 Body temperature 97.2 [degF] [facility]; [facility] Work Phone: 09-02-2022 13:35-0400 Body weight 104.15 kg [facility]; [facility] Work Phone: 09-02-2022 13:35-0400 Diastolic blood pressure 68 mm[Hg] [facility]; [facility] Work Phone: Comment on above: Patient Position: Sitting; Cuff Location : Left Arm; Cuff Size: Standard 09-02-2022 13:35-0400 Heart rate 83 /min [facility]; [facility] Work Phone: Comment on above: Pattern: Regular 09-02-2022 13:35-0400 Respiratory rate 16 /min [facility]; [facility] Work Phone: Comment on above: Pattern: Unlabored 09-02-2022 13:35-0400 SaO2% (BldA) [Mass fraction] 94 % [facility]; [facility] Work Phone: Comment on above: Room air 09-02-2022 13:35-0400 Systolic blood pressure 122 mm[Hg] [facility]; [facility] Work Phone: Comment on above: Patient Position: Sitting; Cuff Location : Left Arm; Cuff Size: Standard 08-26-2022 15:10-0400 Body height 172.72 cm [facility]; [facility] Work Phone: 08-26-2022 15:10-0400 Body mass index (BMI) [Ratio] 34.91 kg/m2 [facility]; [facility] Work Phone: 08-26-2022 15:10-0400 Body surface area Derived from formula 2.17 m2 [facility]; [facility] Work Phone: 08-26-2022 15:10-0400 Body temperature 97.2 [degF] [facility]; [facility] Work Phone: 08-26-2022 15:10-0400 Body weight 104.15 kg [facility]; [facility] Work Phone: 08-26-2022 15:10-0400 Diastolic blood pressure 78 mm[Hg] [facility]; [facility] Work Phone: Comment on above: Patient Position: Sitting; Cuff Location : Left Arm; Cuff Size: Standard 08-26-2022 15:10-0400 Heart rate 73 /min [facility]; [facility] Work Phone: Comment on above: Pattern: Regular 08-26-2022 15:10-0400 Respiratory rate 16 /min [facility]; [facility] Work Phone: Comment on above: Pattern: Unlabored 08-26-2022 15:10-0400 SaO2% (BldA) [Mass fraction] 95 % [facility]; [facility] Work Phone: Comment on above: Room air 08-26-2022 15:10-0400 Systolic blood pressure 120 mm[Hg] [facility]; [facility] Work Phone: Comment on above: Patient Position: Sitting; Cuff Location : Left Arm; Cuff Size: Standard 08-21-2022 15:55-0400 Body height 172.72 cm [facility]; [facility] Work Phone: 08-21-2022 15:55-0400 Body mass index (BMI) [Ratio] 34.91 kg/m2 [facility]; [facility] Work Phone: 08-21-2022 15:55-0400 Body surface area Derived from formula 2.17 m2 [facility]; [facility] Work Phone: 08-21-2022 15:55-0400 Body temperature 97.4 [degF] [facility]; [facility] Work Phone: 08-21-2022 15:55-0400 Body weight 104.15 kg [facility]; [facility] Work Phone: 08-21-2022 15:55-0400 Diastolic blood pressure 80 mm[Hg] [facility]; [facility] Work Phone: Comment on above: Patient Position: Sitting; Cuff Location : Left Arm; Cuff Size: Standard 08-21-2022 15:55-0400 Heart rate 73 /min [facility]; [facility] Work Phone: Comment on above: Pattern: Regular 08-21-2022 15:55-0400 Respiratory rate 16 /min [facility]; [facility] Work Phone: Comment on above: Pattern: Unlabored 08-21-2022 15:55-0400 SaO2% (BldA) [Mass fraction] 97 % [facility]; [facility] Work Phone: Comment on above: Room air 08-21-2022 15:55-0400 Systolic blood pressure 120 mm[Hg] [facility]; [facility] Work Phone: Comment on above: Patient Position: Sitting; Cuff Location : Left Arm; Cuff Size: Standard 08-19-2022 11:10-0400 Body temperature 98 [degF] Dr. Charo Swenson Work Phone: [facility] 08-19-2022 11:10-0400 Diastolic blood pressure 78 mm[Hg] Dr. Charo Swenson Work Phone: [facility] 08-19-2022 11:10-0400 Heart rate 82 /min Dr. Charo Swenson Work Phone: [facility] 08-19-2022 11:10-0400 Respiratory rate 18 /min Dr. Charo Swenson Work Phone: [facility] 08-19-2022 11:10-0400 SaO2% (BldA) [Mass fraction] 96 % Dr. Charo Swenson Work Phone: [facility] 08-19-2022 11:10-0400 Systolic blood pressure 132 mm[Hg] Dr. Charo Swenson Work Phone: [facility] 08-19-2022 10:18-0400 Body height 170.[address] Charo Swenson Work Phone: [facility] 07-18-2022 08:02-0500 Body height 170.[address] Charo Swenson Work Phone: [facility] 07-18-2022 08:02-0500 Body mass index (BMI) [Ratio] 36 kg/m2 Dr. Charo Swenson Work Phone: [facility] 07-18-2022 08:02-0500 Body temperature 97.9 [degF] Dr. Charo Swenson Work Phone: [facility] 07-18-2022 08:02-0500 Body weight 104.[address] Charo Swenson Work Phone: [facility] 07-18-2022 08:02-0500 Diastolic blood pressure 87 mm[Hg] Dr. Charo Swenson Work Phone: [facility] 07-18-2022 08:02-0500 Heart rate 88 /min Dr. Charo Swenson Work Phone: [facility] 07-18-2022 08:02-0500 Respiratory rate 14 /min Dr. Charo Swenson Work Phone: [facility] 07-18-2022 08:02-0500 SaO2% (BldA) [Mass fraction] 99 % Dr. Charo Swenson Work Phone: [facility] 07-18-2022 08:02-0500 Systolic blood pressure 161 mm[Hg] Dr. Charo Swenson Work Phone: [facility] 07-12-2022 13:48-0500 Body height 172.72 cm Jackie Saez LPN [facility]; [facility] Work Phone: 07-12-2022 13:48-0500 Body mass index (BMI) [Ratio] 34.91 kg/m2 Jackie Nidarb [employer] [facility]; [facility] Work Phone: 07-12-2022 13:48-0500 Body surface area Derived from formula 2.17 m2 Jackie Slarb [employer] [facility]; [facility] Work Phone: 07-12-2022 13:48-0500 Body temperature 96.8 [degF] Jackie Slarb [employer] [facility]; [facility] Work Phone: Comment on above: Method: Temporal 07-12-2022 13:48-0500 Body weight 104.15 kg Jackie Nidarb [employer] [facility]; [facility] Work Phone: 07-12-2022 13:48-0500 Diastolic blood pressure 78 mm[Hg] Jackie Slarb [employer] [facility]; [facility] Work Phone: Comment on above: Patient Position: Sitting; Cuff Location : Left Arm; Cuff Size: Standard 07-12-2022 13:48-0500 Heart rate 74 /min Jackie Slarb [employer] [facility]; [facility] Work Phone: Comment on above: Pattern: Regular 07-12-2022 13:48-0500 Respiratory rate 16 /min Jackie Slarb [employer] [facility]; [facility] Work Phone: Comment on above: Pattern: Unlabored 07-12-2022 13:48-0500 SaO2% (BldA) [Mass fraction] 98 % Jackie Saez LPN [facility]; [facility] Work Phone: Comment on above: Room air 07-12-2022 13:48-0500 Systolic blood pressure 124 mm[Hg] Jackie Saez LPN [facility]; [facility] Work Phone: Comment on above: Patient Position: Sitting; Cuff Location : Left Arm; Cuff Size: Standard 04-11-2022 09:19-0500 Body height 172.72 cm Brice Laguerre LPN [facility]; [facility] Work Phone: 04-11-2022 09:19-0500 Body mass index (BMI) [Ratio] 34.91 kg/m2 Brice Laguerre LPN [facility]; [facility] Work Phone: 04-11-2022 09:19-0500 Body surface area Derived from formula 2.17 m2 Brice Laguerre LPN [facility]; [facility] Work Phone: 04-11-2022 09:19-0500 Body weight 104.15 kg Brice Laguerre LPN [facility]; [facility] Work Phone: 04-11-2022 09:19-0500 Diastolic blood pressure 70 mm[Hg] Brice Laguerre LPN [facility]; [facility] Work Phone: Comment on above: Patient Position: Sitting; Cuff Location : Left Arm; Cuff Size: Standard 04-11-2022 09:19-0500 Heart rate 64 /min Brice Laguerre LPN [facility]; [facility] Work Phone: Comment on above: Pattern: Regular 04-11-2022 09:19-0500 Respiratory rate 16 /min Brice Laguerre LPN [facility]; [facility] Work Phone: Comment on above: Pattern: Unlabored 04-11-2022 09:19-0500 SaO2% (BldA) [Mass fraction] 98 % Brice Laguerre LPN [facility]; [facility] Work Phone: Comment on above: Room air 04-11-2022 09:19-0500 Systolic blood pressure 110 mm[Hg] Brice Laguerre LPN [facility]; [facility] Work Phone: Comment on above: Patient Position: Sitting; Cuff Location : Left Arm; Cuff Size: Standard 02-27-2022 16:28-0400 Body height 172.72 cm Brice Laguerre LPN [facility]; [facility] Work Phone: 02-27-2022 16:28-0400 Body mass index (BMI) [Ratio] 36.73 kg/m2 Brice Laguerre LPN [facility]; [facility] Work Phone: 02-27-2022 16:28-0400 Body surface area Derived from formula 2.21 m2 Brice Laguerre LPN [facility]; [facility] Work Phone: 02-27-2022 16:28-0400 Body temperature 97.6 [degF] Brice Laguerre LPN [facility]; [facility] Work Phone: Comment on above: Method: Infrared 02-27-2022 16:28-0400 Body weight 109.59 kg Brice Laguerre LPN [facility]; [facility] Work Phone: 02-27-2022 16:28-0400 Diastolic blood pressure 80 mm[Hg] Brice Laguerre LPN [facility]; [facility] Work Phone: Comment on above: Patient Position: Sitting; Cuff Location : Left Arm; Cuff Size: Standard 02-27-2022 16:28-0400 Heart rate 68 /min Brice Laguerre LPN [facility]; [facility] Work Phone: Comment on above: Pattern: Regular 02-27-2022 16:28-0400 Respiratory rate 16 /min Brice Laguerre LPN [facility]; [facility] Work Phone: Comment on above: Pattern: Unlabored 02-27-2022 16:28-0400 SaO2% (BldA) [Mass fraction] 98 % Brice Laguerre LPN [facility]; [facility] Work Phone: Comment on above: Room air 02-27-2022 16:28-0400 Systolic blood pressure 132 mm[Hg] Brice Laguerre [facility]; [facility] Work Phone: Comment on above: Patient Position: Sitting; Cuff Location : Left Arm; Cuff Size: Standard 09-28-2021 08:56-0400 Body height 172.72 cm Hattie Younger [facility]; [facility] Work Phone: 09-28-2021 08:56-0400 Body mass index (BMI) [Ratio] 36.5 kg/m2 Hattie Younger [facility]; [facility] Work Phone: 09-28-2021 08:56-0400 Body surface area Derived from formula 2.21 m2 Hattie Younger [facility]; [facility] Work Phone: 09-28-2021 08:56-0400 Body temperature 97.3 [degF] Hattie Younger [facility]; [facility] Work Phone: Comment on above: Method: Infrared 09-28-2021 08:56-0400 Body weight 108.88 kg Hattie Younger [facility]; [facility] Work Phone: 09-28-2021 08:56-0400 Diastolic blood pressure 84 mm[Hg] Hattie Younger [facility]; [facility] Work Phone: Comment on above: Patient Position: Sitting; Cuff Location : Left Arm; Cuff Size: Standard 09-28-2021 08:56-0400 Heart rate 82 /min Hattie Younger [facility]; [facility] Work Phone: Comment on above: Pattern: Regular 09-28-2021 08:56-0400 Respiratory rate 16 /min Hattie Younger [facility]; [facility] Work Phone: Comment on above: Pattern: Unlabored 09-28-2021 08:56-0400 SaO2% (BldA) [Mass fraction] 95 % Hattie Youngre [facility]; [facility] Work Phone: Comment on above: Room air 09-28-2021 08:56-0400 Systolic blood pressure 140 mm[Hg] Hattie Younger [facility]; [facility] Work Phone: Comment on above: Patient Position: Sitting; Cuff Location : Left Arm; Cuff Size: Standard 02-08-2021 08:59-0400 Body height 172.72 cm Hattie Younger [facility]; [facility] Work Phone: 02-08-2021 08:59-0400 Body mass index (BMI) [Ratio] 33.3 kg/m2 Hattie Younger [facility]; [facility] Work Phone: 02-08-2021 08:59-0400 Body surface area Derived from formula 2.12 m2 Hattie Younger [facility]; [facility] Work Phone: 02-08-2021 08:59-0400 Body temperature 97 [degF] Hattie Younger [facility]; [facility] Work Phone: Comment on above: Method: Infrared 02-08-2021 08:59-0400 Body weight 99.35 kg Hattie Younger [facility]; [facility] Work Phone: 02-08-2021 08:59-0400 Diastolic blood pressure 72 mm[Hg] Hattie Younger [facility]; [facility] Work Phone: Comment on above: Patient Position: Sitting; Cuff Location : Left Arm; Cuff Size: Standard 02-08-2021 08:59-0400 Heart rate 86 /min Hattie Younger [facility]; [facility] Work Phone: Comment on above: Pattern: Regular 02-08-2021 08:59-0400 Respiratory rate 18 /min Hattie Younger [facility]; [facility] Work Phone: Comment on above: Pattern: Unlabored 02-08-2021 08:59-0400 SaO2% (BldA) [Mass fraction] 99 % Hattie Younger [facility]; [facility] Work Phone: Comment on above: Room air 02-08-2021 08:59-0400 Systolic blood pressure 138 mm[Hg] Hattie Younger [facility]; [facility] Work Phone: Comment on above: Patient Position: Sitting; Cuff Location : Left Arm; Cuff Size: Standard 09-11-2020 14:51-0400 BMI (Body Mass Index) 34.82 kg/m2 Elvie Patterson [facility]; [facility] Work Phone: 09-11-2020 14:51-0400 Body Temperature 96.9 [degF] Elvie Patterson [facility]; [facility] Work Phone: Comment on above: Method: Thermal Scan 09-11-2020 14:51-0400 Body weight 103.89 kg Elvie Patterson [facility]; [facility] Work Phone: 09-11-2020 14:51-0400 BP Diastolic 70 mm[Hg] Elvie Patterson [facility]; [facility] Work Phone: Comment on above: Patient Position: Sitting; Cuff Location : Left Arm; Cuff Size: Standard 09-11-2020 14:51-0400 BP Systolic 126 mm[Hg] Elvie Patterson [facility]; [facility] Work Phone: Comment on above: Patient Position: Sitting; Cuff Location : Left Arm; Cuff Size: Standard 09-11-2020 14:51-0400 BSA (Body Surface Area) 2.17 m2 Elvie Patterson [facility]; [facility] Work Phone: 09-11-2020 14:51-0400 Height 172.72 cm Elvie Patterson [facility]; [facility] Work Phone: 09-11-2020 14:51-0400 Pulse (Heart Rate) 70 /min Elvie Patterson [facility]; [facility] Work Phone: Comment on above: Pattern: Regular 09-11-2020 14:51-0400 Respiratory Rate 16 /min Elvie Patterson [facility]; [facility] Work Phone: Comment on above: Pattern: Unlabored 02-23-2020 11:38-0400 BMI (Body Mass Index) 34.82 kg/m2 [facility] Work Phone: 02-23-2020 11:38-0400 Body Temperature 97.2 [degF] [facility] Work Phone: Comment on above: Method: Thermal Scan 02-23-2020 11:38-0400 Body weight 103.89 kg [facility] Work Phone: 02-23-2020 11:38-0400 BP Diastolic 60 mm[Hg] [facility] Work Phone: Comment on above: Patient Position: Sitting; Cuff Location : Left Arm; Cuff Size: Standard 02-23-2020 11:38-0400 BP Systolic 118 mm[Hg] [facility] Work Phone: Comment on above: Patient Position: Sitting; Cuff Location : Left Arm; Cuff Size: Standard 02-23-2020 11:38-0400 BSA (Body Surface Area) 2.17 m2 [facility] Work Phone: 02-23-2020 11:38-0400 Height 172.72 cm [facility] Work Phone: 02-23-2020 11:38-0400 Pulse (Heart Rate) 72 /min [facility] e [facility] Work Phone: Comment on above: Pattern: Regular 02-23-2020 11:38-0400 Pulse Oximetry 97 % Charo Swenson [facility] Work Phone: Comment on above: Room air 02-23-2020 11:38-0400 Respiratory Rate 16 /min [facility] Work Phone: Comment on above: Pattern: Unlabored 02-23-2020 11:38-0400 SaO2% (BldA) [Mass fraction] 97 % Marnie Alonso [employer] [facility]; [facility] Work Phone: Comment on above: Room air 09-17-2019 09:13-0400 BMI (Body Mass Index) 35.73 kg/m2 Brice Laguerre LPN [facility] Work Phone: 09-17-2019 09:13-0400 Body Temperature 97.4 [degF] Brice Laguerre [employer] [facility] Work Phone: Comment on above: Method: Oral 09-17-2019 09:13-0400 Body weight 106.6 kg Brice Laguerre LPN [facility] Work Phone: 09-17-2019 09:13-0400 BP Diastolic 74 mm[Hg] Brice Laguerre [employer] [facility] Internal Medicine Work Phone: Comment on above: Patient Position: Sitting; Cuff Location : Left Arm; Cuff Size: Standard 09-17-2019 09:13-0400 BP Systolic 136 mm[Hg] Brice Laguerre LPN [facility] Work Phone: Comment on above: Patient Position: Sitting; Cuff Location : Left Arm; Cuff Size: Standard 09-17-2019 09:13-0400 BSA (Body Surface Area) 2.19 m2 Brice Laguerre LPN [facility] Internal Medicine Work Phone: 09-17-2019 09:13-0400 Height 172.72 cm Brice Laguerre LPN [facility] Work Phone: 06-23-2019 09:34-0500 BMI (Body Mass Index) 35.58 kg/m2 Sophia Bearden LPN Comprehe ns[facility] Work Phone: 06-23-2019 09:34-0500 Body Temperature 97.3 [degF] Sophia Bearden LPN [facility] Work Phone: Comment on above: Method: Temporal 06-23-2019 09:34-0500 Body weight 106.14 kg Sophia Bearden LPN [facility] Work Phone: 06-23-2019 09:34-0500 BP Diastolic 76 mm[Hg] Sophia Bearden [employer] [facility] Internal Medicine Work Phone: Comment on above: Patient Position: Sitting; Cuff Location : Left Arm; Cuff Size: Standard 06-23-2019 09:34-0500 BP Systolic 116 mm[Hg] Sophia Bearden [employer] [facility] Internal Medicine Work Phone: Comment on above: Patient Position: Sitting; Cuff Location : Left Arm; Cuff Size: Standard 06-23-2019 09:34-0500 BSA (Body Surface Area) 2.19 m2 Sophia Bearden [employer] [facility] Internal Medicine Work Phone: 06-23-2019 09:34-0500 Height 172.72 cm Sophia Bearden MAKENNA [facility] Internal Medicine Work Phone: 06-23-2019 09:34-0500 Pulse (Heart Rate) 78 /min Sophia Bearden [employer] [facility] Work Phone: Comment on above: Pattern: Regular 06-23-2019 09:34-0500 Pulse Oximetry 97 % Charo Swenson [facility] Internal Medicine Work Phone: Comment on above: Room air 06-23-2019 09:34-0500 Respiratory Rate 16 /min Sophialindy Bearden [employer] [facility] Internal Medicine Work Phone: Comment on above: Pattern: Unlabored 06-23-2019 09:34-0500 SaO2% (BldA) [Mass fraction] 97 % Sophia Bearden LPN [facility]; [facility] Work Phone: Comment on above: Room air 03-09-2019 10:27-0400 BMI (Body Mass Index) 36.04 kg/m2 Brice Laguerre LPN [facility] Work Phone: 03-09-2019 10:27-0400 Body Temperature 98.2 [degF] Brice Laguerre LPN [facility] Internal Medicine Work Phone: Comment on above: Method: Temporal 03-09-2019 10:27-0400 Body weight 107.52 kg Brice Laguerre LPN [facility] Medicine Work Phone: 03-09-2019 10:27-0400 BP Diastolic 70 mm[Hg] Brice Shade MENSAH [facility] Work Phone: Comment on above: Patient Position: Sitting; Cuff Location : Left Arm; Cuff Size: Standard 03-09-2019 10:27-0400 BP Systolic 138 mm[Hg] Brice Laguerre MAKENNA [facility] Work Phone: Comment on above: Patient Position: Sitting; Cuff Location : Left Arm; Cuff Size: Standard 03-09-2019 10:27-0400 BSA (Body Surface Area) 2.2 m2 Brice Shade [employer] [facility] Work Phone: 03-09-2019 10:27-0400 Height 172.72 cm Brice Laguerre [employer] [facility] Internal Medicine Work Phone: 03-09-2019 10:27-0400 Pulse (Heart Rate) 85 /min Brice Shade MENSAH [facility] Work Phone: Comment on above: Pattern: Regular 03-09-2019 10:27-0400 Pulse Oximetry 96 % Charo Swenson [facility] Internal Medicine Work Phone: Comment on above: Room air 03-09-2019 10:27-0400 Respiratory Rate 16 /min Brice Laguerre [employer] [facility] Internal Medicine Work Phone: Comment on above: Pattern: Unlabored 03-09-2019 10:27-0400 SaO2% (BldA) [Mass fraction] 96 % Brice Laguerre [facility]; [facility] Work Phone: Comment on above: Room air 02-25-2019 07:34-0400 BMI (Body Mass Index) 35.73 kg/m2 Jackie Saez [employer] [facility] Work Phone: 02-25-2019 07:34-0400 Body Temperature 98.1 [degF] Jackie Saez [employer] [facility] Work Phone: 02-25-2019 07:34-0400 Body weight 106.6 kg Jackie Nidarb [employer] [facility] Work Phone: 02-25-2019 07:34-0400 BP Diastolic 82 mm[Hg] Jackie Slarb [employer] [facility] Work Phone: Comment on above: Patient Position: Sitting; Cuff Location : Left Arm; Cuff Size: Standard 02-25-2019 07:34-0400 BP Systolic 132 mm[Hg] Jackie Alvarb [employer] [facility] Work Phone: Comment on above: Patient Position: Sitting; Cuff Location : Left Arm; Cuff Size: Standard 02-25-2019 07:34-0400 BSA (Body Surface Area) 2.19 m2 Jackie Nidarb [employer] [facility] Work Phone: 02-25-2019 07:34-0400 Height 172.72 cm Jackie Slarb [employer] [facility] Work Phone: 02-25-2019 07:34-0400 Pulse (Heart Rate) 74 /min Jackie Saez [employer] [facility] e [facility] Work Phone: Comment on above: Pattern: Regular 02-25-2019 07:34-0400 Pulse Oximetry 95 % Charo Swenson [facility] Work Phone: Comment on above: Room air 02-25-2019 07:34-0400 Respiratory Rate 16 /min Jackie Slarb [employer] [facility] Work Phone: Comment on above: Pattern: Unlabored 02-25-2019 07:34-0400 SaO2% (BldA) [Mass fraction] 95 % Jackie Nidarb [employer] [facility]; [facility] Work Phone: Comment on above: Room air 02-23-2019 15:46-0400 BMI (Body Mass Index) 36.8 kg/m2 Brice Laguerre LPN [facility] Work Phone: 02-23-2019 15:46-0400 Body Temperature 97 [degF] Brice Laguerre LPN [facility] Work Phone: Comment on above: Method: Temporal 02-23-2019 15:46-0400 Body weight 109.79 kg Brice Laguerre LPN [facility] Work Phone: 02-23-2019 15:46-0400 BP Diastolic 78 mm[Hg] Brice Laguerre LPN [facility] Work Phone: Comment on above: Patient Position: Sitting; Cuff Location : Left Arm; Cuff Size: Standard 02-23-2019 15:46-0400 BP Systolic 140 mm[Hg] Brice Laguerre [facility] Internal Medicine Work Phone: Comment on above: Patient Position: Sitting; Cuff Location : Left Arm; Cuff Size: Standard 02-23-2019 15:46-0400 BSA (Body Surface Area) 2.22 m2 Brice Shade [facility] Work Phone: 02-23-2019 15:46-0400 Height 172.72 cm Brice Shade [facility] Internal Medicine Work Phone: 02-23-2019 15:46-0400 Pulse (Heart Rate) 90 /min Brice Laguerre [facility] Comprehensiv e Internal Medicine Work Phone: Comment on above: Pattern: Regular 02-23-2019 15:46-0400 Pulse Oximetry 96 % Charo Swenson [facility] Internal Medicine Work Phone: Comment on above: Room air 02-23-2019 15:46-0400 Respiratory Rate 18 /min Brice Laguerre [facility] Work Phone: Comment on above: Pattern: Unlabored 02-23-2019 15:46-0400 SaO2% (BldA) [Mass fraction] 96 % Brice Shade [facility]; [facility] Work Phone: Comment on above: Room air 01-29-2019 14:08-0400 BMI (Body Mass Index) 37.4 kg/m2 Luis Payne RN [facility] Work Phone: 01-29-2019 14:08-0400 Body weight 111.59 kg Luis Payne RN [facility] Work Phone: 01-29-2019 14:08-0400 BP Diastolic 82 mm[Hg] Luis Payne RN [facility] Work Phone: Comment on above: Patient Position: Sitting; Cuff Location : Left Arm; Cuff Size: Large 01-29-2019 14:08-0400 BP Systolic 140 mm[Hg] Luis Payne RN [facility] Work Phone: Comment on above: Patient Position: Sitting; Cuff Location : Left Arm; Cuff Size: Large 01-29-2019 14:08-0400 BSA (Body Surface Area) 2.23 m2 Luis Payne RN [facility] Work Phone: 01-29-2019 14:08-0400 Height 172.72 cm Luis Payne RN [facility] Work Phone: 01-29-2019 14:08-0400 Pulse (Heart Rate) 68 /min Luis Payne RN [facility] Work Phone: Comment on above: Pattern: Regular 01-29-2019 14:08-0400 Pulse Oximetry 97 % Charo Swenson [facility] Work Phone: Comment on above: Room air 01-29-2019 14:08-0400 Respiratory Rate 18 /min Luis Payne RN [facility] Work Phone: Comment on above: Pattern: Unlabored 01-29-2019 14:08-0400 SaO2% (BldA) [Mass fraction] 97 % Luis Payne RN [facility]; [facility] Work Phone: Comment on above: Room air 09-24-2018 13:12-0400 BMI (Body Mass Index) 35.62 kg/m2 Hattie Younger [facility] Work Phone: 09-24-2018 13:12-0400 Body Temperature 97.2 [degF] Hattie Younger [facility] Work Phone: Comment on above: Method: Temporal 09-24-2018 13:12-0400 Body weight 106.26 kg Hattie Younger [facility] Work Phone: 09-24-2018 13:12-0400 BP Diastolic 78 mm[Hg] Hattie Younger [facility] Work Phone: Comment on above: Patient Position: Sitting; Cuff Location : Left Arm; Cuff Size: Standard 09-24-2018 13:12-0400 BP Systolic 110 mm[Hg] Hattie Younger [facility] Work Phone: Comment on above: Patient Position: Sitting; Cuff Location : Left Arm; Cuff Size: Standard 09-24-2018 13:12-0400 BSA (Body Surface Area) 2.[address] [facility] Internal Medicine Work Phone: 09-24-2018 13:12-0400 Height 172.[address] [facility] Internal Medicine Work Phone: 09-24-2018 13:12-0400 Pulse (Heart Rate) 77 /min Hattie Younger [facility] Internal Medicine Work Phone: Comment on above: Pattern: Regular 09-24-2018 13:12-0400 Pulse Oximetry 96 % Charo Swenson [facility] Internal Medicine Work Phone: Comment on above: Room air 09-24-2018 13:12-0400 Respiratory Rate 16 /min Hattie Younger [facility] Internal Medicine Work Phone: Comment on above: Pattern: Unlabored 09-24-2018 13:12-0400 SaO2% (BldA) [Mass fraction] 96 % Hattie Younger [facility] Internal Medicine; [facility] Work Phone: Comment on above: Room air 09-24-2018 13:12-0400 Weight 106.26 kg Charo Swenson [facility] Internal Medicine Work Phone: 06-18-2018 11:56-0500 BMI (Body Mass Index) 35.92 kg/m2 Brice Laguerre LPN [facility] Internal Medicine Work Phone: 06-18-2018 11:56-0500 Body weight 107.16 kg Brice Laguerre LPN [facility] Internal Medicine Work Phone: 06-18-2018 11:56-0500 BP Diastolic 78 mm[Hg] Brice Laguerre [facility] Internal Medicine Work Phone: Comment on above: Patient Position: Sitting; Cuff Location : Left Arm; Cuff Size: Standard 06-18-2018 11:56-0500 BP Systolic 122 mm[Hg] [facility] Work Phone: Comment on above: Patient Position: Sitting; Cuff Location : Left Arm; Cuff Size: Standard 06-18-2018 11:56-0500 BSA (Body Surface Area) 2.19 m2 Brice Laguerre LPN [facility] Work Phone: 06-18-2018 11:56-0500 Height 172.72 cm Brice Laguerre LPN [facility] Work Phone: 06-18-2018 11:56-0500 Pulse (Heart Rate) 58 /min Brice Laguerre LPN [facility] Work Phone: Comment on above: Pattern: Regular 06-18-2018 11:56-0500 Pulse Oximetry 97 % Charo Leela [facility] Internal Medicine Work Phone: Comment on above: Room air 06-18-2018 11:56-0500 Respiratory Rate 16 /min Brice Laguerre LPN [facility] Internal Medicine Work Phone: Comment on above: Pattern: Unlabored 06-18-2018 11:56-0500 SaO2% (BldA) [Mass fraction] 97 % Brice Laguerre LPN [facility]; [facility] Work Phone: Comment on above: Room air 06-18-2018 11:56-0500 Weight 107.16 kg Charo Swenson [facility] Internal Medicine Work Phone: 04-28-2018 12:14-0500 BMI (Body Mass Index) 35.92 kg/m2 Luis Payne RN [facility] Work Phone: 04-28-2018 12:14-0500 Body weight 107.16 kg Luis Payne RN [facility] Work Phone: 04-28-2018 12:14-0500 BP Diastolic 78 mm[Hg] Luis Payne RN [facility] Work Phone: Comment on above: Patient Position: Sitting; Cuff Location : Left Arm; Cuff Size: Standard 04-28-2018 12:14-0500 BP Systolic 122 mm[Hg] Luis Payne RN [facility] Work Phone: Comment on above: Patient Position: Sitting; Cuff Location : Left Arm; Cuff Size: Standard 04-28-2018 12:14-0500 BSA (Body Surface Area) 2.19 m2 Luis Payne RN [facility] Work Phone: 04-28-2018 12:14-0500 Height 172.72 cm Luis Payne RN [facility] Work Phone: 04-28-2018 12:14-0500 Pulse (Heart Rate) 66 /min Luis Payne RN [facility] Work Phone: Comment on above: Pattern: Regular 04-28-2018 12:14-0500 Pulse Oximetry 96 % Charo Swenson [facility] Internal Medicine Work Phone: Comment on above: Room air 04-28-2018 12:14-0500 Respiratory Rate 18 /min Luis Payne RN [facility] Work Phone: Comment on above: Pattern: Unlabored 04-28-2018 12:14-0500 SaO2% (BldA) [Mass fraction] 96 % Luis Payne RN [facility]; [facility] Work Phone: Comment on above: Room air 04-28-2018 12:14-0500 Weight 107.16 kg Charo Swenson [facility] Internal Medicine Work Phone: 04-16-2018 11:59-0500 BMI (Body Mass Index) 35.73 kg/m2 Hattie Younger [facility] Work Phone: 04-16-2018 11:59-0500 Body Temperature 97.4 [degF] Hattie Younger [facility] Internal Medicine Work Phone: Comment on above: Method: Temporal 04-16-2018 11:59-0500 Body weight 106.[address] [facility] Internal Medicine Work Phone: 04-16-2018 11:59-0500 BP Diastolic 83 mm[Hg] Hattie Younger [facility] Internal Medicine Work Phone: Comment on above: Patient Position: Sitting; Cuff Location : Left Arm; Cuff Size: Standard 04-16-2018 11:59-0500 BP Systolic 141 mm[Hg] Hattie Younger [facility] Internal Medicine Work Phone: Comment on above: Patient Position: Sitting; Cuff Location : Left Arm; Cuff Size: Standard 04-16-2018 11:59-0500 BSA (Body Surface Area) 2.19 m2 Hattie Younger [employer] [facility] Work Phone: 04-16-2018 11:59-0500 Height 172.72 cm Hattie Younger [facility] Work Phone: 04-16-2018 11:59-0500 Pulse (Heart Rate) 72 /min Hattie Younger CMA [facility] Work Phone: Comment on above: Pattern: Regular 04-16-2018 11:59-0500 Pulse Oximetry 97 % Charo Swenson [facility] Internal Medicine Work Phone: Comment on above: Room air 04-16-2018 11:59-0500 Respiratory Rate 20 /min Hattie Younger [facility] Work Phone: Comment on above: Pattern: Unlabored 04-16-2018 11:59-0500 SaO2% (BldA) [Mass fraction] 97 % Hattie Younger [facility]; [facility] Work Phone: Comment on above: Room air 04-16-2018 11:59-0500 Weight 106.6 kg Charo Swenson [facility] Work Phone: 02-26-2018 07:47-0400 BMI (Body Mass Index) 35.43 kg/m2 Luis Payne RN [facility] Work Phone: 02-26-2018 07:47-0400 Body Temperature 98 [degF] Luis Payne RN [facility] Work Phone: Comment on above: Method: Temporal 02-26-2018 07:47-0400 Body weight 105.69 kg Luis Payne RN [facility] Work Phone: 02-26-2018 07:47-0400 BP Diastolic 82 mm[Hg] Luis Payne RN [facility] Work Phone: Comment on above: Patient Position: Sitting; Cuff Location : Left Arm; Cuff Size: Large 02-26-2018 07:47-0400 BP Systolic 124 mm[Hg] Luis Payne RN [facility] Work Phone: Comment on above: Patient Position: Sitting; Cuff Location : Left Arm; Cuff Size: Large 02-26-2018 07:47-0400 BSA (Body Surface Area) 2.18 m2 Luis Payne RN [facility] Work Phone: 02-26-2018 07:47-0400 Height 172.72 cm Luis Payne RN [facility] Work Phone: 02-26-2018 07:47-0400 Pulse (Heart Rate) 64 /min Luis Payne RN [facility] Work Phone: Comment on above: Pattern: Regular 02-26-2018 07:47-0400 Pulse Oximetry 96 % Charo Swenson [facility] Work Phone: Comment on above: Room air 02-26-2018 07:47-0400 Respiratory Rate 18 /min Luis Payne RN [facility] Work Phone: Comment on above: Pattern: Unlabored 02-26-2018 07:47-0400 SaO2% (BldA) [Mass fraction] 96 % Luis Payne RN [facility]; [facility] Work Phone: Comment on above: Room air 02-26-2018 07:47-0400 Weight 105.69 kg Charo Swenson [facility] Work Phone: 02-27-2017 14:05-0400 BMI (Body Mass Index) 36.05 kg/m2 Luis Payne RN [facility] Work Phone: 02-27-2017 14:05-0400 Body weight 107.56 kg Luis Payne RN [facility] Work Phone: 02-27-2017 14:05-0400 BP Diastolic 78 mm[Hg] Luis Payne RN [facility] Work Phone: Comment on above: Patient Position: Sitting; Cuff Location : Left Arm; Cuff Size: Large 02-27-2017 14:05-0400 BP Systolic 142 mm[Hg] Luis Payne RN [facility] Work Phone: Comment on above: Patient Position: Sitting; Cuff Location : Left Arm; Cuff Size: Large 02-27-2017 14:05-0400 BSA (Body Surface Area) 2.2 m2 Luis Payne RN [facility] Work Phone: 02-27-2017 14:05-0400 Height 172.72 cm Luis Payne RN [facility] Work Phone: 02-27-2017 14:05-0400 Pulse (Heart Rate) 62 /min Luis Payne RN [facility] Work Phone: Comment on above: Pattern: Regular 02-27-2017 14:05-0400 Pulse Oximetry 96 % Charo Swenson [facility] Work Phone: Comment on above: Room air 02-27-2017 14:05-0400 Respiratory Rate 18 /min Luis Payne RN [facility] Work Phone: Comment on above: Pattern: Unlabored 02-27-2017 14:05-0400 SaO2% (BldA) [Mass fraction] 96 % Luis Payne RN [facility]; [facility] Work Phone: Comment on above: Room air 02-27-2017 14:05-0400 Weight 107.56 kg Charo Velizon [facility] Work Phone: 09-06-2016 07:58-0400 BMI (Body Mass Index) 37.88 kg/m2 Luis Payne RN [facility] Work Phone: 09-06-2016 07:58-0400 Body weight 113 kg Luis Payne RN [facility] Work Phone: 09-06-2016 07:58-0400 BP Diastolic 84 mm[Hg] Luis Payne RN [facility] Work Phone: Comment on above: Patient Position: Sitting; Cuff Location : Left Arm; Cuff Size: Large 09-06-2016 07:58-0400 BP Systolic 148 mm[Hg] Luis Payne RN [facility] Work Phone: Comment on above: Patient Position: Sitting; Cuff Location : Left Arm; Cuff Size: Large 09-06-2016 07:58-0400 BSA (Body Surface Area) 2.24 m2 Luis Payne RN [facility] Work Phone: 09-06-2016 07:58-0400 Height 172.72 cm Luis Payne RN [facility] Work Phone: 09-06-2016 07:58-0400 Pulse (Heart Rate) 94 /min Luis Payne RN [facility] Work Phone: Comment on above: Pattern: Regular 09-06-2016 07:58-0400 Pulse Oximetry 92 % Charo Swenson [facility] Work Phone: Comment on above: Room air 09-06-2016 07:58-0400 Respiratory Rate 18 /min Luis Payne RN [facility] Work Phone: Comment on above: Pattern: Unlabored 09-06-2016 07:58-0400 SaO2% (BldA) [Mass fraction] 92 % Luis Payne RN [facility]; [facility] Work Phone: Comment on above: Room air 09-06-2016 07:58-0400 Weight 113 kg Charo Swenson [facility] Internal Medicine Work Phone: 05-08-2016 08:28-0500 BMI (Body Mass Index) 38.01 kg/m2 Elvie Patterson [facility] Work Phone: 05-08-2016 08:28-0500 Body weight 113.4 kg Elvie Patterson [facility] Work Phone: 05-08-2016 08:28-0500 BP Diastolic 78 mm[Hg] Elvie Patterson [facility] Internal Medicine Work Phone: Comment on above: Patient Position: Sitting; Cuff Location : Left Arm; Cuff Size: Standard 05-08-2016 08:28-0500 BP Systolic 138 mm[Hg] Elvie Patterson [facility] Work Phone: Comment on above: Patient Position: Sitting; Cuff Location : Left Arm; Cuff Size: Standard 05-08-2016 08:28-0500 BSA (Body Surface Area) 2.25 m2 Elvie Patterson [facility] Work Phone: 05-08-2016 08:28-0500 Height 172.72 cm Elvie Patterson [facility] Work Phone: 05-08-2016 08:28-0500 Pulse (Heart Rate) 72 /[facility] Work Phone: Comment on above: Pattern: Regular 05-08-2016 08:28-0500 Pulse Oximetry 95 % Charo Swenson [facility] Internal Medicine Work Phone: Comment on above: Room air 05-08-2016 08:28-0500 Respiratory Rate 16 /min Elvie Patterson [facility] Work Phone: Comment on above: Pattern: Unlabored 05-08-2016 08:28-0500 SaO2% (BldA) [Mass fraction] 95 % Elvie Patterson [facility] Internal Medicine; [facility] Work Phone: Comment on above: Room air 05-08-2016 08:28-0500 Weight 113.4 kg Charo Swenson [facility] Internal Medicine Work Phone: 04-23-2016 08:18-0500 BMI (Body Mass Index) 38.01 kg/m2 Cathleen Vela RN [facility] Internal Medicine Work Phone: 04-23-2016 08:18-0500 Body Temperature 97.8 [degF] Cathleen Vela RN [facility] Internal Medicine Work Phone: Comment on above: Method: Temporal 04-23-2016 08:18-0500 Body weight 113.4 kg Cathleen Vela RN [facility] Internal Medicine Work Phone: 04-23-2016 08:18-0500 BP Diastolic 80 mm[Hg] Cathleen Vela RN [facility] Internal Medicine Work Phone: Comment on above: Patient Position: Sitting; Cuff Location : Left Arm; Cuff Size: Standard 04-23-2016 08:18-0500 BP Systolic 132 mm[Hg] Cathleen Vela RN [facility] Internal Medicine Work Phone: Comment on above: Patient Position: Sitting; Cuff Location : Left Arm; Cuff Size: Standard 04-23-2016 08:18-0500 BSA (Body Surface Area) 2.25 m2 Cathleen Vela RN [facility] Work Phone: 04-23-2016 08:18-0500 Height 172.72 cm Cathleen Vela RN [facility] Work Phone: 04-23-2016 08:18-0500 Pulse (Heart Rate) 80 /min aCthleen Vela RN [facility] Work Phone: Comment on above: Pattern: Regular 04-23-2016 08:18-0500 Pulse Oximetry 97 % Charo Swenson [facility] Work Phone: Comment on above: Room air 04-23-2016 08:18-0500 Respiratory Rate 15 /min Cathleen Vela RN [facility] Work Phone: Comment on above: Pattern: Unlabored 04-23-2016 08:18-0500 SaO2% (BldA) [Mass fraction] 97 % Cathleen Vela RN [facility]; [facility] Work Phone: Comment on above: Room air 04-23-2016 08:18-0500 Weight 113.4 kg Charo Swenson [facility] Work Phone: 02-26-2016 15:24-0400 BMI (Body Mass Index) 37.73 kg/m2 Luis Payne RN [facility] Work Phone: 02-26-2016 15:24-0400 Body weight 112.55 kg Luis Payne RN [facility] Work Phone: 02-26-2016 15:24-0400 BP Diastolic 70 mm[Hg] Luis Payne RN [facility] Work Phone: Comment on above: Patient Position: Sitting; Cuff Location : Left Arm; Cuff Size: Large 02-26-2016 15:24-0400 BP Systolic 132 mm[Hg] Luis Payne RN [facility] Work Phone: Comment on above: Patient Position: Sitting; Cuff Location : Left Arm; Cuff Size: Large 02-26-2016 15:24-0400 BSA (Body Surface Area) 2.24 m2 Luis Payne RN [facility] Work Phone: 02-26-2016 15:24-0400 Height 172.72 cm Luis Payne RN [facility] Work Phone: 02-26-2016 15:24-0400 Pulse (Heart Rate) 68 /min Luis Payne RN [facility] Work Phone: Comment on above: Pattern: Regular 02-26-2016 15:24-0400 Pulse Oximetry 97 % Charo Swenson [facility] Work Phone: Comment on above: Room air 02-26-2016 15:24-0400 Respiratory Rate 18 /min Luis Payne RN [facility] Work Phone: Comment on above: Pattern: Unlabored 02-26-2016 15:24-0400 SaO2% (BldA) [Mass fraction] 97 % Luis Payne RN [facility]; [facility] Work Phone: Comment on above: Room air 02-26-2016 15:24-0400 Weight 112.55 kg Charo Swenson [facility] Work Phone: 03-01-2015 10:26-0400 BMI (Body Mass Index) 36.53 kg/m2 Jackie Slarb [employer]SE [employer]OCIATE [facility] Internal Medicine Work Phone: 03-01-2015 10:26-0400 Body Temperature 97.8 [degF] Jackie Slarb GENERAL WAREHOUSE ASSOCIATE [facility] Medicine Work Phone: 03-01-2015 10:26-0400 Body weight 108.98 kg Jackie Slarb GENERAL WAREHOUSE ASSOCIATE [facility] Medicine Work Phone: 03-01-2015 10:26-0400 BP Diastolic 82 mm[Hg] Jackie Slarb GENERAL W[employer]HOUSE ASSOCIATE [facility] Work Phone: Comment on above: Patient Position: Sitting; Cuff Location : Left Arm; Cuff Size: Standard 03-01-2015 10:26-0400 BP Systolic 122 mm[Hg] Jackie Slarb GENERAL WAREHOUSE ASSOCIATE [facility] Work Phone: Comment on above: Patient Position: Sitting; Cuff Location : Left Arm; Cuff Size: Standard 03-01-2015 10:26-0400 BSA (Body Surface Area) 2.21 m2 Jackie Slarb GENERAL W[employer]HOUSE ASSOCIATE [facility] Work Phone: 03-01-2015 10:26-0400 Height 172.72 cm Jackie Slarb GENERAL W[employer]HOUSE ASSOCIATE [facility] Work Phone: 03-01-2015 10:26-0400 Pulse (Heart Rate) 69 /min Jackie Saez LPN [facility] Work Phone: Comment on above: Pattern: Regular 03-01-2015 10:26-0400 Pulse Oximetry 98 % Charo Swenson [facility] Work Phone: Comment on above: Room air 03-01-2015 10:26-0400 Respiratory Rate 18 /min Jackie Saez LPN [facility] Work Phone: Comment on above: Pattern: Unlabored 03-01-2015 10:26-0400 SaO2% (BldA) [Mass fraction] 98 % Jackie Saez LPN [facility]; [facility] Work Phone: Comment on above: Room air 03-01-2015 10:26-0400 Weight 108.98 kg Charo Swenson [facility] Work Phone: 02-17-2014 07:57-0400 BMI (Body Mass Index) 35.28 kg/m2 Luis Payne RN [facility] Work Phone: 02-17-2014 07:57-0400 Body weight 105.24 kg Luis Payne RN [facility] Work Phone: 02-17-2014 07:57-0400 BP Diastolic 76 mm[Hg] Luis Payne RN [facility] Work Phone: Comment on above: Patient Position: Sitting; Cuff Location : Left Arm; Cuff Size: Large 02-17-2014 07:57-0400 BP Systolic 128 mm[Hg] Luis Payne RN [facility] Work Phone: Comment on above: Patient Position: Sitting; Cuff Location : Left Arm; Cuff Size: Large 02-17-2014 07:57-0400 BSA (Body Surface Area) 2.18 m2 Luis Payne RN [facility] Work Phone: 02-17-2014 07:57-0400 Height 172.72 cm Luis Payne RN [facility] Work Phone: 02-17-2014 07:57-0400 Pulse (Heart Rate) 68 /min Luis Payne RN [facility] Work Phone: Comment on above: Pattern: Regular 02-17-2014 07:57-0400 Pulse Oximetry 98 % Charo Swenson [facility] Work Phone: Comment on above: Room air 02-17-2014 07:57-0400 Respiratory Rate 18 /min Luis Payne RN [facility] Work Phone: Comment on above: Pattern: Unlabored 02-17-2014 07:57-0400 SaO2% (BldA) [Mass fraction] 98 % Luis Payne RN [facility]; [facility] Work Phone: Comment on above: Room air 02-17-2014 07:57-0400 Weight 105.24 kg Charo Swenson [facility] Work Phone: 12-02-2013 07:49-0400 BMI (Body Mass Index) 35.16 kg/m2 Luis Payne RN [facility] Work Phone: 12-02-2013 07:49-0400 Body weight 104.89 kg uLis Payne RN [facility] Work Phone: 12-02-2013 07:49-0400 BP Diastolic 70 mm[Hg] Luis Payne RN [facility] Work Phone: Comment on above: Patient Position: Sitting; Cuff Location : Left Arm; Cuff Size: Large 12-02-2013 07:49-0400 BP Systolic 122 mm[Hg] Luis Payne RN [facility] Work Phone: Comment on above: Patient Position: Sitting; Cuff Location : Left Arm; Cuff Size: Large 12-02-2013 07:49-0400 BSA (Body Surface Area) 2.17 m2 Luis Payne RN [facility] Work Phone: 12-02-2013 07:49-0400 Height 172.72 cm Luis Payne RN [facility] Work Phone: 12-02-2013 07:49-0400 Pulse (Heart Rate) 64 /min Luis Payne RN [facility] Work Phone: Comment on above: Pattern: Regular 12-02-2013 07:49-0400 Pulse Oximetry 98 % Charo Swenson [facility] Work Phone: Comment on above: Room air 12-02-2013 07:49-0400 Respiratory Rate 20 /min Luis Payne RN [facility] Work Phone: Comment on above: Pattern: Unlabored 12-02-2013 07:49-0400 SaO2% (BldA) [Mass fraction] 98 % Luis Payne RN [facility]; [facility] Work Phone: Comment on above: Room air 12-02-2013 07:49-0400 Weight 104.89 kg Charo Swenson [facility] Work Phone: 02-18-2013 08:10-0400 BMI (Body Mass Index) 36.51 kg/m2 Luis Payne RN [facility] Work Phone: 02-18-2013 08:10-0400 Body Temperature 98.8 [degF] Luis Payne RN [facility] Work Phone: Comment on above: Method: Oral 02-18-2013 08:10-0400 Body weight 108.92 kg Luis Payne RN [facility] Work Phone: 02-18-2013 08:10-0400 BP Diastolic 78 mm[Hg] Luis Payne RN [facility] Work Phone: Comment on above: Patient Position: Sitting; Cuff Location : Left Arm; Cuff Size: Large 02-18-2013 08:10-0400 BP Systolic 128 mm[Hg] Luis Payne RN [facility] Work Phone: Comment on above: Patient Position: Sitting; Cuff Location : Left Arm; Cuff Size: Large 02-18-2013 08:10-0400 BSA (Body Surface Area) 2.21 m2 Luis Payne RN [facility] Work Phone: 02-18-2013 08:10-0400 Height 172.72 cm Luis Payne RN [facility] Work Phone: 02-18-2013 08:10-0400 Pulse (Heart Rate) 72 /min Luis Payne RN [facility] Work Phone: Comment on above: Pattern: Regular 02-18-2013 08:10-0400 Respiratory Rate 18 /min Luis Payne RN [facility] Work Phone: Comment on above: Pattern: Unlabored 02-18-2013 08:10-0400 Weight 108.92 kg Charo Swenson [facility] Work Phone: 09-23-2012 14:48-0400 BMI (Body Mass Index) 36.81 kg/m2 Luis Payne RN [facility] Work Phone: 09-23-2012 14:48-0400 Body weight 109.8 kg Luis Payne RN [facility] Work Phone: 09-23-2012 14:48-0400 BP Diastolic 70 mm[Hg] Luis Payne RN [facility] Work Phone: Comment on above: Patient Position: Sitting; Cuff Location : Left Arm; Cuff Size: Large 09-23-2012 14:48-0400 BP Systolic 140 mm[Hg] Luis Payne RN [facility] Work Phone: Comment on above: Patient Position: Sitting; Cuff Location : Left Arm; Cuff Size: Large 09-23-2012 14:48-0400 BSA (Body Surface Area) 2.22 m2 Luis Payne RN [facility] Work Phone: 09-23-2012 14:48-0400 Height 172.72 cm Luis Payne RN [facility] Work Phone: 09-23-2012 14:48-0400 Pulse (Heart Rate) 68 /min Luis Payne RN [facility] Work Phone: Comment on above: Pattern: Regular 09-23-2012 14:48-0400 Respiratory Rate 18 /min Luis Payne RN [facility] Work Phone: Comment on above: Pattern: Unlabored 09-23-2012 14:48-0400 Weight 109.8 kg Charo Swenson [facility] Work Phone: 02-13-2012 07:54-0400 BMI (Body Mass Index) 36.26 kg/m2 Luis Payne RN [facility] Work Phone: 02-13-2012 07:54-0400 Body Temperature 97.4 [degF] Luis Payne RN [facility] Work Phone: Comment on above: Method: Oral 02-13-2012 07:54-0400 Body weight 108.18 kg Luis Payne RN [facility] Work Phone: 02-13-2012 07:54-0400 BP Diastolic 80 mm[Hg] Luis Payne RN [facility] Work Phone: Comment on above: Patient Position: Sitting; Cuff Location : Left Arm; Cuff Size: Large 02-13-2012 07:54-0400 BP Systolic 138 mm[Hg] Luis Payne RN [facility] Work Phone: Comment on above: Patient Position: Sitting; Cuff Location : Left Arm; Cuff Size: Large 02-13-2012 07:54-0400 BSA (Body Surface Area) 2.2 m2 Luis Payne RN [facility] Work Phone: 02-13-2012 07:54-0400 Height 172.72 cm Luis Pyane RN [facility] Work Phone: 02-13-2012 07:54-0400 Pulse (Heart Rate) 60 /min Luis Payne RN [facility] Work Phone: Comment on above: Pattern: Regular 02-13-2012 07:54-0400 Respiratory Rate 18 /min Luis Payne RN [facility] Work Phone: Comment on above: Pattern: Unlabored 02-13-2012 07:54-0400 Weight 108.18 kg Charo Swenson [facility] Work Phone: 01-08-2012 13:14-0400 BMI (Body Mass Index) 36.38 kg/m2 Luis Payne RN [facility] Work Phone: 01-08-2012 13:14-0400 Body weight 108.52 kg Luis Payne RN [facility] Work Phone: 01-08-2012 13:14-0400 BP Diastolic 90 mm[Hg] Luis Payne RN [facility] Work Phone: Comment on above: Patient Position: Sitting; Cuff Location : Left Arm; Cuff Size: Large 01-08-2012 13:14-0400 BP Systolic 162 mm[Hg] Luis Payne RN [facility] Work Phone: Comment on above: Patient Position: Sitting; Cuff Location : Left Arm; Cuff Size: Large 01-08-2012 13:14-0400 BSA (Body Surface Area) 2.21 m2 Luis Payne RN [facility] Work Phone: 01-08-2012 13:14-0400 Height 172.72 cm Luis Payne RN [facility] Work Phone: 01-08-2012 13:14-0400 Pulse (Heart Rate) 56 /min Luis Payne RN [facility] Work Phone: Comment on above: Pattern: Regular 01-08-2012 13:14-0400 Respiratory Rate 16 /min Luis Payne RN [facility] Work Phone: Comment on above: Pattern: Unlabored 01-08-2012 13:14-0400 Weight 108.52 kg Charo Swenson [facility] Work Phone: 01-22-2010 15:44-0400 BMI (Body Mass Index) 35.93 kg/m2 Luis Payne RN [facility] Work Phone: 01-22-2010 15:44-0400 Body weight 107.19 kg Luis Payne RN [facility] Work Phone: 01-22-2010 15:44-0400 BP Diastolic 70 mm[Hg] Luis Payne RN [facility] Work Phone: Comment on above: Patient Position: Sitting; Cuff Location : Left Arm; Cuff Size: Large 01-22-2010 15:44-0400 BP Systolic 112 mm[Hg] Luis Payne RN [facility] Work Phone: Comment on above: Patient Position: Sitting; Cuff Location : Left Arm; Cuff Size: Large 01-22-2010 15:44-0400 BSA (Body Surface Area) 2.19 m2 Luis Payne RN [facility] Work Phone: 01-22-2010 15:44-0400 Height 172.72 cm Luis Payne RN [facility] Work Phone: 01-22-2010 15:44-0400 Pulse (Heart Rate) 60 /min Luis Payne RN [facility] Work Phone: Comment on above: Pattern: Regular 01-22-2010 15:44-0400 Respiratory Rate 20 /min Luis Payne RN [facility] Work Phone: Comment on above: Pattern: Unlabored 01-22-2010 15:44-0400 Weight 107.19 kg Charo Swenson [facility] Work Phone: 08-24-2008 14:46-0400 Body Temperature 98.1 [degF] Alexus Valencia RN [facility] Work Phone: Comment on above: Method: Oral 08-24-2008 14:46-0400 Body weight 102.97 kg Alexus Valencia RN [facility] Work Phone: 08-24-2008 14:46-0400 BP Diastolic 72 mm[Hg] Alexus Valencia RN [facility] Work Phone: Comment on above: Patient Position: Sitting; Cuff Location : Left Arm; Cuff Size: Standard 08-24-2008 14:46-0400 BP Systolic 138 mm[Hg] Alexus Valencia RN [facility] Work Phone: Comment on above: Patient Position: Sitting; Cuff Location : Left Arm; Cuff Size: Standard 08-24-2008 14:46-0400 Head Circumference 0 cm Charo Swenson [facility] Work Phone: 08-24-2008 14:46-0400 Head Occipital-frontal circumference 0 cm Alexus Valencia RN [facility]; [facility] Work Phone: 08-24-2008 14:46-0400 Height 0 cm Alexus Valencia RN [facility] Work Phone: 08-24-2008 14:46-0400 Pulse (Heart Rate) 64 /min Alexus Valencia RN [facility] Work Phone: Comment on above: Pattern: Regular 08-24-2008 14:46-0400 Respiratory Rate 14 /min Alexus Valencia RN [facility] Work Phone: Comment on above: Pattern: Unlabored 08-24-2008 14:46-0400 Weight 102.97 kg Charo Swenson [facility] Work Phone: Encounters Encounter Date Encounter Type Care Provider Facility Start: 02-24-2025 End: 02-24-2025 ambulatory Karin Marks Facility:[facility] Start: 02-23-2025 ambulatory Batsheva Charles [facility] Start: 02-16-2025 End: 02-16-[address] Batsheva Charles DC -[facility] Work Phone: Start: 02-16-2025 End: 02-16-[address] Charo Swenson DO Work Phone: -[facility] Start: 02-08-2025 End: 02-08-2025 Patient encounter procedure Karin WALTERS -[facility] Work Phone: Start: 02-08-2025 End: 02-08-[address] Charo Swenson DO Work Phone: -[facility] Start: 01-25-2025 End: 01-25-2025 Patient encounter procedure Whit Cuellar -[facility] Work Phone: Start: 01-25-2025 End: 01-25-[address] Charo Swenson DO Work Phone: -[facility] Start: 01-11-2025 ambulatory Karin Marks Facility :[facility] Start: 12-13-2024 End: 12-17-2024 ambulatory MILLY HUITRON MD Facility:[facility] Start: 12-13-2024 End: 12-13-2024 ambulatory MILLY HUITRON MD Facility:[facility] Start: 12-13-2024 End: 12-13-2024 Patient encounter procedure MILLY HUITRON MD [facility] Start: 12-06-2024 End: 12-30-2024 Discharged Recurring Karin Marks MANAGER STORY-C -[facility] Work Phone: Start: 12-06-2024 End: 12-30-[address] Charo Swenson DO Work Phone: -[facility] Start: 11-24-2024 End: 11-24-[address] CHARO SWENSON DO Facility:[facility] Start: 11-24-2024 End: 11-24-2024 Patient encounter procedure SOLEDAD CASTLE MD [facility] Start: 11-04-2024 End: 11-04-2024 Patient encounter procedure Karin Marks MANAGER STORY-C -[facility] Work Phone: Start: 11-04-2024 End: 11-04-[address] Charo Swenson DO Work Phone: [facility] Work Phone: Start: 11-01-2024 End: 11-01-[address] Charo Swenson DO Work Phone: [facility] Work Phone: Start: 11-01-2024 End: 11-01-2024 Patient encounter procedure Lisa Omalley MANAGER STORY-C -[facility] Work Phone: Start: 11-01-2024 End: 11-01-2024 ambulatory Lisa Omalley Facility:[facility] Start: 10-30-2024 End: 10-30-2024 Patient encounter procedure Lisa Omalley MANAGER STORY-C -[facility] Work Phone: Start: 10-30-2024 End: 10-30-[address] Charo Swenson DO Work Phone: [facility] Work Phone: Start: 10-11-2024 End: 10-11-[address] Charo Swenson DO Work Phone: [facility] Work Phone: Start: 10-11-2024 End: 10-11-[address] Charo Swenson DO Work Phone: -Laboratory Work Phone: Start: 10-11-2024 End: 10-11-2024 ambulatory MATHEUS ALVES Facility:[facility] Start: 10-05-2024 End: 10-05-[address] Batsheva Charles DC -[facility] Work Phone: Start: 10-05-2024 End: 10-05-2024 ambulatory Charo Swenson Facility:[facility] Start: 09-07-2024 End: 09-07-[address] Batsheva Charles DC -[facility] Work Phone: Start: 09-07-2024 End: 09-07-2024 ambulatory Charo Swenson Facility:[facility] Start: 08-24-2024 End: 08-24-2024 Patient encounter procedure Giana Ramachandran MANAGER STORYCarlos -Medical Out Work Phone: Start: 08-24-2024 End: 08-24-[address] Charo Swenson DO Work Phone: [facility] Work Phone: Start: 08-20-2024 End: 08-20-2024 Patient encounter procedure Karin WALTERS -[facility] Work Phone: Start: 08-20-2024 End: 08-20-2024 ambulatory Karin Marks Facility:[facility] Start: 08-17-2024 End: 08-17-[address] Batsheva Charles [place] -[facility] Work Phone: Start: 08-17-2024 End: 08-17-2024 ambulatory Charo Swenson Facility:[facility] Start: 08-12-2024 End: 08-12-2024 Patient encounter procedure Karin WALTERS -[facility] Work Phone: Start: 08-12-2024 End: 08-12-2024 ambulatory Karin Marks Facility:[facility] Start: 08-10-2024 End: 08-10-[address] Batsheva Charles DC -[facility] Work Phone: Start: 08-10-2024 End: 08-10-2024 ambulatory Charo Swenson Facility:[facility] Start: 08-09-2024 End: 08-09-2024 Patient encounter procedure Ottocarlton Duarte MANAGER STORYCarlos -Medical Out Work Phone: Start: 08-09-2024 End: 08-09-[address] Charo Swenson DO Work Phone: [facility] Work Phone: Start: 08-06-2024 End: 08-06-2024 Patient encounter procedure Karin WALTERS -[facility] Work Phone: Start: 08-06-2024 End: 08-06-2024 ambulatory Karin Marks Facility:[facility] Start: 08-03-2024 End: 08-03-[address] Batsheva Charles [place] -[facility] Work Phone: Start: 08-03-2024 End: 08-03-2024 ambulatory Charo Swenson Facility:[facility] Start: 07-26-2024 End: 07-26-[address] Batsheva Charles [place] -[facility] Work Phone: Start: 07-26-2024 End: 07-26-2024 ambulatory Batsheva Charles Facility:[facility] Start: 07-13-2024 ambulatory Chace Pak Facility :[facility] Start: 07-07-2024 End: 07-07-[address] Chace Pak DO -[facility] Work Phone: Start: 07-07-2024 End: 07-07-2024 ambulatory Charo Swenson Facility:[facility] Start: 06-21-2024 ambulatory Charo Swenson Facilit y:[facility] Start: 06-15-2024 End: 06-15-[address] Chace Pak DO -Radiology, [facility] Work Phone: Start: 06-15-2024 End: 06-15-2024 ambulatory Chace Pak Facility:[facility] Start: 06-08-2024 End: 06-08-[address] Batsheva Charles [place] -[facility] Work Phone: Start: 06-08-2024 End: 06-08-2024 ambulatory Batsheva Charles Facility:[facility] Start: 05-11-2024 End: 05-11-[address] Charo Swenson DO -Outpatient [facility] Work Phone: Start: 05-11-2024 End: 05-11-2024 ambulatory Charo Swenson Facility:[facility] Start: 04-21-2024 End: 04-21-[address] CHARO SWENSON DO Facility:[facility] Start: 04-15-2024 End: 04-15-[address] Charo Swenson DO -Laboratory Work Phone: Start: 04-15-2024 End: 04-15-2024 ambulatory Charo Swenson Facility:[facility] Start: 03-31-2024 End: 03-31-2024 ambulatory Charo Swenson Facility:[facility] Start: 03-25-2024 End: 03-25-2024 ambulatory Alexandru KELLEY Facility:[facility] Start: 10-30-2023 End: 10-30-2023 ambulatory MILLY HUITRON MD Facility:[facility] Start: 10-30-2023 End: 10-30-2023 Patient encounter procedure MILLY HUITRON MD [facility] Start: 10-07-2023 End: 10-07-[address] Charo Swenson Work Phone: [facility] Work Phone: Start: 10-07-2023 End: 10-07-[address] Charo Swenson Work Phone: [facility] Work Phone: Start: 09-30-2023 End: 09-30-[address] Charo Swenson Work Phone: [facility] Work Phone: Start: 09-30-2023 End: 09-30-[address] Charo Swenson Work Phone: [facility] Work Phone: Start: 09-04-2023 End: 09-04-[address] Charo Swenson Work Phone: [facility] Work Phone: Start: 09-04-2023 End: 09-04-[address] Charo Swenson Work Phone: [facility]-Physical Therapy Work Phone: Start: 09-04-[address] Leticia Swenson Work Phone: [facility] Therapy Work Phone: Start: 07-28-2023 End: 07-28-[address] Charo Swenson Work Phone: [facility] Work Phone: Start: 06-16-2023 End: 06-16-[address] Charo Swenson Work Phone: [facility] Work Phone: Start: 06-13-2023 End: 06-13-[address] Charo Swenson Work Phone: [facility] Work Phone: Start: 06-13-2023 End: 06-13-[address] Charo Swenson Work Phone: [facility]-Physical Therapy Work Phone: Start: 06-09-2023 End: 06-09-[address] Charo Swenson Work Phone: [facility] Work Phone: Start: 06-09-2023 End: 06-09-[address] Charo Swenson Work Phone: [facility] Work Phone: Start: 05-23-[address] Leticia Swenson Work Phone: [facility] Work Phone: Start: 04-03-2023 End: 04-03-[address] Charo Swenson Work Phone: [facility] Work Phone: Start: 03-27-[address] Leticia Swenson Work Phone: [facility]-Physical Therapy Work Phone: Start: 03-26-2023 End: 03-26-[address] Charo Swenson Work Phone: [facility] Work Phone: Start: 03-26-2023 End: 03-26-[address] Charo Swenson Work Phone: [facility] Work Phone: Start: 03-26-2023 End: 03-26-2023 Patient encounter procedure González Lindsey LPN [facility] Start: 03-26-2023 End: 03-26-2023 Patient encounter status Charo Swenson DO Work Phone: [facility]; [facility] Work Phone: Start: 03-26-2023 Charo barnhart DO Work Phone: [facility] Start: 03-19-2023 End: 03-19-2023 ambulatory YONG LEGGETT APRN-GATE KEEPER Facility:A Start: 03-19-2023 End: 03-19-2023 Patient encounter procedure YONG LEGGETT APRN-GATE KEEPER [facility] Start: 03-17-[address] Sandra Swenson Work Phone: [facility] Start: 03-17-2023 End: 03-17-[address] Charo Swenson Work Phone: [facility] Work Phone: Start: 03-17-2023 End: 03-17-[address] Charo Swenson Work Phone: [facility] Work Phone: Start: 03-13-2023 End: 03-13-[address] [facility] Work Phone: Start: 2023 End: [address] Charo Swenson Work Phone: [facility] Work Phone: Start: 2023 End: [address] Charo Swenson Work Phone: [facility] Work Phone: Start: 02-27-2023 End: 02-27-[address] [facility] Work Phone: Start: 02-25-2023 End: 02-25-2023 Charo Swenson DO Work Phone: [facility] Start: 02-11-2023 End: 02-11-[address] [facility] Work Phone: Start: 02-10-2023 End: 02-10-[address] [facility] Work Phone: Start: 02-10-2023 End: 02-10-2023 [facility] Start: 11-13-2022 End: 11-13-2022 ambulatory RADHA MINA MD Facility:A Start: 11-13-2022 End: 11-13-2022 Patient encounter procedure RADHA MINA MD [facility] Start: 11-05-2022 End: 11-05-[address] Charo Swenson Work Phone: [facility] Work Phone: Start: 11-05-2022 End: 11-05-[address] Charo Swenson Work Phone: [facility] Start: 10-24-[address] Leticia Swenson Work Phone: [facility] Start: 10-03-2022 End: 10-03-[address] Charo Swenson Work Phone: [facility] Start: 10-01-2022 End: 10-01-[address] Charo Swenson Work Phone: [facility] Start: 09-24-2022 End: 09-24-[address] Charo Swenson Work Phone: [facility] Start: 09-18-2022 End: 09-18-2022 Office outpatient visit 10 minutes Charo Swenson DO Work Phone: [facility] Start: 09-18-2022 End: 09-18-[address] Charo Swenson Work Phone: [facility] Work Phone: Start: 09-18-2022 End: 09-18-[address] Charo Swenson Work Phone: [facility] Start: 09-18-2022 End: 09-18-[address] Charo Swenson Work Phone: [facility] Start: 09-03-2022 ambulatory Charo Swenson DO [facility] Start: 09-02-2022 End: 09-02-2022 Office outpatient visit 5 minutes Charo Swenson DO Work Phone: [facility] Start: 08-26-2022 End: 08-26-2022 Office outpatient visit 10 minutes Charosanna Swenson DO Work Phone: [facility] Start: 08-26-2022 Review Charo Velizo n DO Work Phone: [facility] Start: 08-21-2022 End: 08-22-2022 Office outpatient visit 15 minutes Charo Leela DO Work Phone: [facility] Start: 08-21-2022 Review Charo Velizo n DO Work Phone: [facility] Start: 08-19-2022 End: 08-19-[address] Charo Swenson Work Phone: [facility] Work Phone: Start: 08-19-2022 End: 08-19-[address] Charo Swenson Work Phone: [facility] Start: 08-19-2022 End: 08-19-[address] Charo Swenson Work Phone: [facility] Start: 08-08-2022 End: 08-08-[address] Charo Swenson Work Phone: [facility] Start: 07-24-2022 End: 07-24-[address] Charo Swenson Work Phone: [facility] Start: 07-18-2022 End: 07-18-2022 Emergency department patient visit Dr. Charo Swenson Work Phone: [facility] Start: 07-16-2022 End: 07-17-2022 Patient encounter procedure RADHA MINA MD [facility] Start: 07-12-2022 End: 07-12-2022 Office outpatient visit 15 minutes Charo Swenson DO Work Phone: [facility] Start: 07-09-2022 End: 07-09-[address] Charo Swenson Work Phone: [facility] Work Phone: Start: 07-09-2022 End: 07-09-[address] Charo Swenson Work Phone: [facility] Start: 05-30-2022 End: 05-30-[address] Charo Swenson Work Phone: [facility] Work Phone: Start: 05-30-2022 End: 05-30-[address] Charo Swenson Work Phone: [facility] Start: 04-16-2022 End: 04-16-[address] Charo Swenson Work Phone: [facility] Start: 04-11-2022 Review Charo barnhart DO Work Phone: [facility] Start: 04-11-2022 End: 04-11-2022 Office outpatient visit 10 minutes Charo Swenson DO Work Phone: [facility] Start: 03-29-[address] Sandra Swenson Work Phone: [facility] Start: 03-29-2022 End: 03-29-[address] Charo Swenson Work Phone: [facility] Work Phone: Start: 03-29-2022 End: 03-29-[address] Charo Swenson Work Phone: [facility] Start: 03-13-2022 End: 03-13-2022 Patient encounter procedure RADHA MINA MD [facility] Start: 02-28-2022 End: 02-28-2022 Office outpatient visit 25 minutes Charo Swenson DO Work Phone: [facility] Start: 02-19-2022 End: 02-19-[address] [facility] Start: 12-21-2021 End: 12-21-[address] [facility] Start: 12-18-2021 End: 12-18-[address] Charo Swenson Work Phone: [facility] Start: 11-14-2021 End: 11-14-2021 Patient encounter procedure RADHA MINA MD [facility] Start: 11-08-2021 End: 11-08-[address] Charo Swenson Work Phone: [facility] Start: 11-07-2021 End: 11-07-2021 Phone Encounter Charo Swenson DO Work Phone: [facility] Start: 11-07-2021 End: 11-07-2021 Charo Swenson DO Work Phone: [facility] Start: 10-30-2021 End: 10-30-[address] Charo Swenson Work Phone: [facility] Start: 10-26-2021 End: 10-26-[address] Charo Swenson Work Phone: [facility] Start: 10-19-2021 End: 10-19-[address] Charo Swenson Work Phone: [facility], [facility] Start: 09-28-2021 End: 09-28-2021 Office outpatient visit 25 minutes Charo Swenson DO Work Phone: [facility] Start: 09-21-2021 End: 09-21-[address] Charo Swenson Work Phone: [facility] Start: 08-24-2021 End: 08-24-2021 Annotation/Addendum Charo Swenson DO Work Phone: [facility] Start: 08-24-2021 End: 08-24-2021 Charo Swenson DO Work Phone: [facility] Start: 07-12-2021 End: 07-12-2021 Patient encounter procedure RADHA MINA MD [facility] Start: 07-09-2021 End: 07-09-2021 Phone Encounter Charo Swenson DO Work Phone: [facility] Start: 07-09-2021 End: 07-09-2021 Charo Swenson DO Work Phone: [facility] Start: 07-04-[address] Charo Swenson Work Phone: 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 [facility] Start: 02-08-2021 End: 02-09-2021 Office outpatient visit 25 minutes Charo Swenson DO Work Phone: [facility] Start: 09-11-2020 End: 09-11-2020 Office outpatient visit 15 minutes Charo Swenson [facility] Start: 07-21-2020 End: 07-21-2020 Annotation/Addendum Charo Swenson [facility] Start: 07-21-2020 End: 07-21-2020 Charo Leela DO Work Phone: [facility] Start: 02-23-2020 End: 02-23-2020 Patient encounter status Charo Swenson DO Work Phone: [facility] Start: 02-23-2020 End: 02-23-2020 Periodic preventive med est patient 40-64yrs Charo Swenson [facility] Start: 01-12-2020 End: 01-12-2020 Phone Encounter Charo Swenson [facility] Start: 01-12-2020 End: 01-12-2020 Charotea Swenson DO Work Phone: [facility] Start: 01-12-2020 End: 01-12-2020 Office outpatient visit 5 minutes Charo Swenson [facility] Start: 09-17-2019 End: 09-17-2019 Office outpatient visit 10 minutes Charo Swenson [facility] Start: 06-23-2019 End: 06-23-2019 Office outpatient visit 25 minutes Charo Swenson [facility] Start: 03-09-2019 End: 03-09-2019 Office outpatient visit 15 minutes Charo Swenson [facility] Start: 03-01-2019 End: 03-01-2019 Annotation/Addendum Charo Swenson [facility] Start: 03-01-2019 End: 03-01-2019 Charo Leela DO Work Phone: [facility] Start: 02-25-2019 End: 02-25-2019 Periodic preventive med est patient 40-64yrs Charo Swenson [facility] Start: 02-23-2019 End: 02-23-2019 Office outpatient visit 25 minutes Charo Leela [facility] Start: 02-12-2019 End: 02-12-2019 Phone Encounter Charo Swenson [facility] Start: 02-12-2019 End: 02-12-2019 Charo Swenson DO Work Phone: [facility] Start: 02-02-2019 End: 02-02-2019 Phone Encounter Charo Velizon [facility] Start: 02-02-2019 End: 02-02-2019 Charo Swenson DO Work Phone: [facility] Start: 01-29-2019 End: 01-29-2019 Office outpatient visit 15 minutes Charo Leela [facility] Start: 01-29-2019 Review [facility] Start: 10-05-2018 End: 10-05-2018 Phone Encounter Charo Leela [facility] Start: 10-05-2018 End: 10-05-2018 Charo Swenson DO Work Phone: [facility] Start: 09-24-2018 End: 09-25-2018 Office outpatient visit 15 minutes Charo Swenson [facility] Start: 06-18-2018 End: 06-18-2018 Office outpatient visit 15 minutes Charo Leela [facility] Start: 04-28-2018 End: 04-28-2018 Office outpatient visit 15 minutes Charo Swenson [facility] Start: 04-16-2018 End: 04-16-2018 Office outpatient visit 15 minutes Charo Leela [facility] Start: 02-26-2018 End: 02-26-2018 Patient encounter procedure Charo Swenson DO Work Phone: [facility] Start: 02-26-2018 End: 02-26-2018 Periodic preventive med est patient 40-64yrs Charo Leela [facility] Start: 12-18-2017 End: 12-18-2017 Phone Encounter Charo Leela [facility] Start: 12-18-2017 End: 12-18-2017 Charo Swenson DO Work Phone: [facility] Start: 02-27-2017 End: 02-27-2017 Patient encounter status Charo Swenson DO Work Phone: [facility]; [facility] Work Phone: Start: 02-27-2017 End: 02-27-2017 Periodic preventive med est patient 40-64yrs Charo Swenson [facility] Start: 01-15-2017 End: 01-15-2017 Phone Encounter Charo Swenson [facility] Start: 01-15-2017 End: 01-15-2017 Charo Swenson DO Work Phone: [facility] Start: 09-09-2016 End: 09-09-2016 Phone Encounter Charo Swenson [facility] Start: 09-09-2016 End: 09-09-2016 Charo Swenson DO Work Phone: [facility] Start: 09-06-2016 End: 09-08-2016 Office outpatient visit 25 minutes Charo Swenson [facility] Start: 05-08-2016 End: 05-08-2016 Office outpatient visit 10 minutes Charo Swenson [facility] Start: 04-23-2016 End: 04-23-2016 Office outpatient visit 25 minutes Charo Swenson [facility] Start: 02-26-2016 End: 02-26-2016 Periodic preventive med est patient 40-64yrs Charo Swenson [facility] Start: 02-26-2016 End: 02-26-2016 Physical examination Charo Swenson DO Work Phone: [facility] Start: 03-01-2015 End: 03-01-2015 Office outpatient visit 15 minutes Charo Swenson [facility] Start: 02-17-2014 End: 02-17-2014 Patient encounter procedure Charo Swenson DO Work Phone: [facility] Start: 02-17-2014 End: 02-17-2014 Periodic preventive med est patient 40-64yrs Charo Swenson [facility] Start: 12-02-2013 End: 12-02-2013 Patient encounter Charo Swenson [facility] Start: 12-02-2013 End: 12-02-2013 Charo Swenson DO Work Phone: [facility] Start: 02-18-2013 End: 02-18-2013 Patient encounter Charo Swenson [facility] Start: 02-18-2013 End: 02-18-2013 Charo Swenson DO Work Phone: [facility] Start: 09-23-2012 End: 09-23-2012 Patient encounter Charo Swenson [facility] Start: 09-23-2012 End: 09-23-2012 Charo Swenson DO Work Phone: [facility] Start: 02-13-2012 End: 02-13-2012 Patient encounter Charo Swenson [facility] Start: 02-13-2012 End: 02-13-2012 Charo Swenson DO Work Phone: [facility] Start: 01-08-2012 End: 01-08-2012 Patient encounter Charo Swenson [facility] Start: 01-08-2012 End: 01-08-2012 Charo Swenson DO Work Phone: [facility] Start: 01-22-2010 End: 01-22-2010 Patient encounter Charo Swenson [facility] Start: 01-22-2010 End: 01-22-2010 Charo Swenson DO Work Phone: [facility] Start: 08-24-2008 End: 08-24-2008 Office outpatient new 60 minutes Charo Swenson [facility] Start: 08-24-2008 End: 08-24-2008 Historical Summary Charo Swenson [facility] Start: 08-24-2008 End: 08-24-2008 Charo Swenson DO Work Phone: [facility] Patient encounter procedure Elvie Patterson [facility]; [facility] Work Phone: Patient encounter procedure Brice Laguerre LPN [facility]; [facility] Work Phone: Patient encounter procedure Hattie Linnettemakenna [facility]; [facility] Work Phone: Patient encounter procedure Hattie Gravius [facility]; [facility] Work Phone: Patient encounter procedure Brice Laguerre [facility]; [facility] Work Phone: Patient encounter procedure Brice Laguerre [facility]; [facility] Work Phone: Patient encounter procedure Jackie Saez [facility]; [facility] Work Phone: Patient encounter procedure Devanumu Landeros [facility]; [facility] Work Phone: Patient encounter procedure Devanshirleneflora NunoShirley [facility]; [facility] Work Phone: Patient encounter procedure Richard Nunoford [facility]; [facility] Work Phone: Patient encounter status Elvie Pikeelke [facility]; [facility] Work Phone: Patient encounter status Hattie Younger [facility]; [facility] Work Phone: Patient encounter status Hattie Younger [facility]; [facility] Work Phone: Patient encounter status Brice Laguerre [facility]; [facility] Work Phone: Patient encounter status Brice Laguerre [facility]; [facility] Work Phone: Patient encounter status Jackie Saez [facility]; [facility] Work Phone: Patient encounter status Richard Nunoford [facility]; [facility] Work Phone: Patient encounter status Richard Nunoford [facility]; [facility] Work Phone: Patient encounter status Richard Nunoford [facility]; [facility] Work Phone: Physical examination Luis Pineda [facility]; [facility] Work Phone: Procedures Date Procedure Procedure Detail Performing Clinician Start: 11-01-[address] Charo Swenson DO Work Phone: Start: 06-15-2024 End: 06-15-2024 X-ray of knee, four or more views [address] Charo Swenson DO Work Phone: Start: 05-11-[address] Charo Swenson DO Work Phone: Start: 03-28-2023 End: 03-28-2023 Procedure Note: See Note; NOTES: [facility] [address] [place] [address] / REHABILITATION SERVICES INITIAL EVALUATION MR#: [id number] Acct: [id number] Name: WEST POSADAS Rep #: [id number] : 1960 63 From: Alem Sanchez DPT Referring Dr.: Dr. Charo Swenson DO Status: REG RCR Insurance: [employer]/[facility] SELF PAY INSURANCE Patient's Visit Information Visit Information Visit Information: WEST POSADAS is a 63 year old F referred to Physical Therapy by Dr. Charo Swenson DO with a diagnosis of Right Shoulder Pain/Left Hip Pain. Date of Evaluation: 03/27/23 Physical Therapist: Alem Sanchez DPT Visit Plan Frequency: 2x /Week Duration: 4 Weeks Plan: Aquatic PT- focus on LE and core strength/stabilization, proprioception and scapular strength/stabilization- POSTURE Subjective Subjective: She had chemo a couple of years ago and had a lot of joint inflammation in her left hip and knees and right shoulder. 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 Her has been massaging it but it doesn't every really get better. The pain in the shoulder is along the scapula and and radiates down to the deltoid- but does not radiate down past the elbow. Does have a port on the right side. Describes the pain as dull and achy. Worst: 11/09 Agg: computer work, laying on it, certain movements (elevation). Eases: massage, heating pad and mobic, rest Best: 07/12. No N/T in the hand. She does not notice QUIÑONES, blurred vision or dizziness. Right hand dominate. Limits her dressing and her ability to participate in ADL's. Left Hip- 3 months on/off and maybe longer- she thinks it maybe coming from her back- probably about 2 years. When she sits at work- she tries to get up and move around- it will freeze up- hard to get up and walk on it- takes a few minutes to be able to bear weight on it. Pain is reported in the greater troch. She sees Dr. Charles and she has some bulging disc issues and stenosis that radiates into her buttocks. The new pain is now out into the greater troch and dropping into the glut med which is different from the chronic back pain. She does not feel that she has radiating pain from the hip pain. She reports the pain is more achy pains- not nerve pain. Its very painful when she rolls over on it. At night she has to use a cane when she rolls over onto it. Worst: 11/09 Agg: rolling over at night, when she gets up from sitting, walking a lot, standing a lot. Her ability to stand and walk is so limited right now. She reports no N/T in her toes. Eases: sitting down, laying down on her right side. She 2x a week she does weight training (pull downs, anti rotation, press outs, leg press, abd, add, chest press, mid row- stationary bike)- 1x a week to swim. 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 PMHx/Meds: Objective Objective: Posture: forward head, rounded shoulders- can correct but does not maintain. Gait: mildly antalgic- decreased jony and stride length- no AD HR/TR: able with UE A SLS: Left: 2-3 seconds Right: 5-8 seconds with moderate pelvic drop ROM: Cervical: WNL, Left Shoulder: WNL, Right Shoulder: WNL with the exception of flexion- 120 degrees with pain- does have full AAROM. Elbow/Wrist/Hand: WFL, Lumbar: Flexion: hands to knees, Extn: neutral with discomfort, Rotation: left: WFL, Right: diminished by 25%, Hip/Knee/Ankle: WFL Strength: Scap: poor, Right Shoulder: Flexion: 3+/5, Abd: 4-/5, Ext: 4/5, IR/ER: 4-/5 all with discomfort, Elbow: 4+/5, Core: fair minus. Hip: Flexion: 4-/5, Abd: 4-/5 Glut Med: 3+/5 with pain, Add; 4/5, IR/ER: 4-/5, Extn: 4-/5, Knee: 4+/5, Ankle: 5/5 Flex: HS: moderate, Gastroc: moderate, Quad: moderate Palpation: tender along greater troch, gluts on the left and paraspinals on the left Special Tests L/S Slump test left side: Positive L/S Left Straight Leg Raise: Positive L Hip LULU - Intraarticular Pathology: Positive L Hip FADDIR - Labrum: Positive L Hip Trendelenberg - Glut Medius: Positive L Hip Mamadou - IT Band: Positive Balance/Special Test Scores Lower Extremity Functional Score: 29 Quick DASH Score: 38.6350 Goals Goal 1:: Patient will report participation in home exercise program activities a minimum of 5 days per week, as adjunct to skilled physical therapy intervention in preparation for independent home management upon discharge. Goal Time Frame: 4-6 Weeks Rehabilitation Potential Physical Therapy Diagnosis: Patient presents with hypomobility- she has decreased core and scapular strength/stabilization, flex and muscular endurance leading to poor posture and decreased ability to perform ADL's without pain. Rehabilitation Potential: Fair Anticipated Interventions Patient/Client Instruction: Educate patient on: Benefits of Fitness Program Therapeutic Exercise to Include: Strength training, Endurance training, Balance training, Coordination, Agility training, Body mechanics, Postural training, Flexibilty training, Gait and locomotor training, Neuromotor development, "In an aquatic setting", Dynamic Lumbar Stabilization and Scapular Strength/Stabilization For the Purpose of:: To improve muscle performance and motor function Text: Thank you for the opportunity to evaluate your patient. For Medicare and Medicare HMO plans, please review the plan of care and approve it. It will need to be FAXED BACK to us at [phone] for Medicare purposes. For Medicare only, by signing this I certify the plan of care. Please let me know if there are questions or concerns regarding this plan of care. Physician Signature: Date: <Electronically signed by Alem Sanchez DPT> 03/28/23 0956 CC: Dr. Charo Swenson DO ELR Signed Charo Swenson DO Work Phone: Start: 03-26-2023 Plain x-ray of pelvis and lower extremity Dr. Charo Swenson Work Phone: Start: 03-26-2023 End: 03-26-2023 Procedure Note: See Note; NOTES: [facility] [address] [place] [address] HIP, UNI W/ Pelvis 2-3 Views MR#: [id number] Acct: [id number] Name: WEST POSADAS Rep #: [id number] : 1960 F 63 From: Zachariah Orantes MD PCP: Dr. Charo Swenson DO Status: REG CLI Study: HIP, UNI W/ Pelvis 2-3 Views Date of Exam: Exam# [id number] Ordering Dr: Charo Swenson DO [id number] STUDY: X-RAY - PELVIS AND LEFT HIP REASON FOR EXAM: Female, 63 years old. Pain. TECHNIQUE: 3 views of the pelvis and hip. COMPARISON: None. FINDINGS: There is a non-specific bowel gas pattern. Phleboliths. Osteopenia. Mild arthrosis of both sacroiliac joints. Normal bilateral superior and inferior pubic rami. Normal pubic symphysis. Normal bilateral ischial tuberosities. Mild arthrosis of both hips. RAD/HIP, UNI W/ Pelvis 2-3 Views IMPRESSION: Osteopenia with mild arthrosis of both sacroiliac joints and both hips. No acute abnormality or erosive changes. Electronically Signed: Zachariah Orantes MD at 12:26 EDT , CC: Dr. Charo Swenson DO Business Intelligence Analyst: Signed Charo Swenson DO Work Phone: Start: 03-26-2023 Plain x-ray of hand Dr. Charo Swenson Work Phone: Start: 03-26-2023 End: 03-26-2023 Procedure Note: See Note; NOTES: [facility] [address] [place] [address] Hand 2 Views MR#: [id number] Acct: [id number] Name: WEST POSADAS Rep #: [id number] : 1960 F 63 From: Zachariah Orantes MD PCP: Dr. Charo Swenson DO Status: REG CLI Study: Hand 2 Views Date of Exam: 03/26/23 Exam# [id number] Ordering Dr: Charo Swenson DO [id number] STUDY: X-RAY - RIGHT HAND REASON FOR EXAM: Female, 63 years old. Pain. TECHNIQUE: 2 view(s) of the hand. COMPARISON: None. FINDINGS: Osteopenia. Normal radiocarpal articulation. Normal distal radioulnar joint. Mild arthrosis of the radial carpal row. Mild arthrosis of the first CMC joint. Mild arthrosis of the MCP and IP joints. Normal soft tissues. RAD/Hand 2 Views IMPRESSION: Osteopenia with mild osteoarthritic changes as described. No acute abnormality or erosive changes. Electronically Signed: Zachariah Orantes MD at 12:24 EDT , CC: Dr. Charo Swenson DO Business Intelligence Analyst: Signed Charo Swenson DO Work Phone: Start: 03-13-2023 End: 03-13-2023 Procedure Note: See Note; NOTES: [facility] [address] [place] [address] OFFICE VISIT Date of Service: 03/13/23 MR#: [id number] Acct: [id number] Name: WEST POSADAS Rep #: [id number] : 1960 Provider: DAVID Herman Do ssi Age/Sex: 63/F [place] [facility] [place] Status: Signed Intake Vital Signs 08/19/22 10:18 Height 5 ft 7 in Intake Visit Reasons: Back pain Chief Complaint: L Low back/hip pain Allergies midazolam [From Versed] Allergy (Verified 02/27/23 09:09) hypotensive codeine Adverse Reaction (Verified 02/27/23 09:09) Vomiting erythromycin base Adverse Reaction (Verified 02/27/23 09:09) Vomiting PFSH Medical History Acute bronchitis, unspecified Contact with and (suspected) exposure to other viral communicable diseases Diarrhea Endometrial cancer HTN (hypertension) Migraines Non-smoker Surgical History History of appendectomy History of cholecystectomy History of total abdominal hysterectomy Family History Mother Arthritis Migraine Father CAD (coronary artery disease) Hx of CABG Arthritis Social History Smoking Status: Never smoker alcohol intake: never HPI Back pain Chief Complaint: left low back Visit Number: 9 Details: WEST POSADAS is a 63 year old F here today for ongoing low back/left hip pain. Pt. advises she had been doing some yard work earlier this week which has made her low back achy but then she tripped over a curb and now she is experiencing increased pain in her left low back. She states it extends into her left glute and wraps around into her left thigh. She rates her pain 3/10. Her neck and upper back occasionally get stiff and sore from computer work. She denies new injury, numbness or tingling. She treats pain at home with heat,stretching, Tylenol, and her gives her massages. She states chiropractic adjustments are helpful in relieving her pain and discomfort. Onset: 01/28/23 Location: left low back Duration: frequent Aggravating or associated factors: ADLs, working Relieving factors: chiro Exam Musc General: Yes normal posture, normal gait, joint tenderness and decreased range of motion Cervical Spine: Yes loss of normal cervical lordosis, Yes cervical muscular tenderness bilateral lower , Yes cervical spasm right greater than left lower trapezius and paracervical muscles and Yes misalignment misalignment: C2, C5, C6 and C7 Thoracic/Lumber: Yes thoracic and lumbar spine normal to inspection, Yes paraspinal tenderness bilaterally in the upper thoracic and on the left greater than right (lumbar/pelvic), Yes thoraco- lumbar spasm on the right greater than left (QL, trap) and on the left greater than right (piriformis, glute), Yes Trigger (L SI and glute medius) and Yes misalignment T1, T2, L3, L4, L5 and LIL Sacroiliac joints: on the left (edema) tender to palpation Office Procedures Procedures - Chiropractic Procedures Manipulation: Cervical C6, Lumbar L3, Thoracic T2 and Pelvis LIL Manipulation: 3-4 regions Patient Response: positive Assessment and Plan Assessment and Plan (1) Back pain: Qualifiers: Back pain location: low back pain Chronicity: acute Back pain laterality: left Sciatica presence: without sciatica Qualified Code(s): M54.50 - Low back pain, unspecified (2) Segmental and somatic dysfunction of lumbar region: Status: Acute (3) Bulging lumbar disc: Status: Chronic (4) Segmental and somatic dysfunction of pelvic region: Status: Acute (5) Segmental and somatic dysfunction of thoracic region: Status: Acute (6) Segmental and somatic dysfunction of cervical region: Status: Acute Orders: Orders Chiropractic Treatments Today M51.26 - Other intervertebral disc displacement, lumbar region, M54.9 - Dorsalgia, unspecified, M99.01 - Segmental and somatic dysfunction of cervical region, M99.02 - Segmental and somatic dysfunction of thoracic region, M99.03 - Segmental and somatic dysfunction of lumbar region, M99.05 - Segmental and somatic dysfunction of pelvic region Plan Patient was treated without incident. Follow up should pain persist. Plan Details Goals Barriers: Goals Decrease inflammation and pain Decrease spasm Increase ability to work with less pain Barriers Disc bulge Follow Up: PRN Coding Level of Care Code No Charge Diagnoses Acute left-sided low back pain without sciatica M54.50 Back pain location: low back pain Chronicity: acute Back pain laterality: left Sciatica presence: without sciatica Segmental and somatic dysfunction of lumbar region M99.03 Bulging lumbar disc M51.26 Segmental and somatic dysfunction of pelvic region M99.05 Segmental and somatic dysfunction of thoracic region M99.02 Segmental and somatic dysfunction of cervical region M99.01 CPT Codes Procedures - Manipulation: 3-4 regions (31211) 03/13/23 1235 <Electronically signed by Batsheva Charles D.C.> Date Batsheva Charles D.C. Cosigner Signature: Date (if applicable) CC: Charo Swenson DO Work Phone: Start: 2023 CT of chest and abdomen Dr. Charo Swenson Work Phone: Start: 2023 End: 2023 Procedure Note: See Note; NOTES: [facility] [address] [place] [address] Chest, Abd, Pel w/Contrast MR#: [id number] Acct: [id number] Name: WEST POSADAS Rep #: [id number] : 1960 F 63 From: Tito Escamilla MD PCP: Dr. Charo Swenson, DO Status: REG CLI Study: CT Chest, Abd, Pel w/Contrast Date of Exam: Exam# [id number] Ordering Dr: Radha Mina MD [id number] EXAM: CT CHEST, ABDOMEN AND PELVIS WITH INTRAVENOUS CONTRAST CLINICAL INDICATION: ENDOMETRIAL CA TECHNIQUE: Helically acquired images were obtained of the chest, abdomen and pelvis with intravenous contrast. This CT exam was performed using one or more of the following dose reduction techniques: automated exposure control, adjustment of the mA and/or kV according to patient size, and/or use of iterative reconstruction technique. CONTRAST: IV 100mL Isovue-300 COMPARISON: 11/30/2020 FINDINGS: CHEST: LUNGS AND PLEURAL SPACES: Unremarkable. No mass. No consolidation or edema. No pleural effusion or thickening. No pneumothorax. HEART: Unremarkable. Heart size is normal. No pericardial effusion. MEDIASTINUM: Unremarkable. No mediastinal or hilar adenopathy. Esophagus is unremarkable. No hiatal hernia. THYROID: Unremarkable. No thyroid lesions. ABDOMEN: LIVER: Unremarkable. Homogeneous. No focal mass. GALLBLADDER AND BILE DUCTS: Unremarkable. No calcified gallstones. No gallbladder distention or wall edema. No intra- or extrahepatic biliary ductal dilation. PANCREAS: Unremarkable. No focal cystic or solid mass. SPLEEN: Unremarkable. Normal size without focal cystic or solid mass. ADRENALS: There is a 2.7 x 2.4 x 2.6 cm low-density mass in the left adrenal gland which is unchanged from the reference examination and may represent an adenoma. KIDNEYS AND URETERS: There is a small low-density mass in the right kidney compatible with a cyst which is stable. No follow-up examination is needed. No hydronephrosis. STOMACH AND BOWEL: Unremarkable. No stomach or bowel distention. No focal inflammatory change. PELVIS: APPENDIX: No evidence of acute appendicitis. BLADDER: Unremarkable. REPRODUCTIVE: The patient status post hysterectomy. CHEST, ABDOMEN and PELVIS: INTRAPERITONEAL SPACE: Unremarkable. No ascites or other fluid collection. No free air. BONES/JOINTS: Unremarkable. No suspicious lytic or blastic abnormality. SOFT TISSUES: Unremarkable. No discrete abdominal or pelvic wall hernia. VASCULATURE: Unremarkable. Aorta is non-dilated. No aortic dissection. No obvious central pulmonary embolism although this study was not performed with the pulmonary embolism protocol. LYMPH NODES: Unremarkable. No enlarged lymph nodes. CT/CT Chest, Abd, Pel w/Contrast IMPRESSION: 1. Status post hysterectomy. 2. Stable low-density mass in the left adrenal gland compatible with adenoma. 3. No pulmonary nodules identified. There are no acute abnormalities within the chest, abdomen or pelvis. Electronically Signed: Tito Escamilla MD at 23:54 EDT , CC: Dr. Charo Swenson DO; Dr. Radha Mina MD Business Intelligence Analyst: Signed Charo Swenson DO Work Phone: Start: 02-27-2023 End: 02-27-2023 Procedure Note: See Note; NOTES: [facility] [address] [place] [address] OFFICE VISIT Date of Service: 02/27/23 MR#: [id number] Acct: [id number] Name: WEST POSADAS Rep #: [id number] : 1960 Provider: DAVID Herman Do ssi Age/Sex: 62/F [place] [facility] [place] Status: Signed Intake Vital Signs 08/19/22 10:18 Height 5 ft 7 in Intake Visit Reasons: Back pain Chief Complaint: L Low back/hip pain Is patient in pain?: Yes (Left low back ) Pain scale (1-10): 5 Allergies midazolam [From Versed] Allergy (Verified 02/27/23 09:09) hypotensive codeine Adverse Reaction (Verified 02/27/23 09:09) Vomiting erythromycin base Adverse Reaction (Verified 02/27/23 09:09) Vomiting Medications hydrochlorothiazide 25 mg tablet 25 mg PO DAILY 02/25/19 [History Confirmed 02/27/23] meloxicam 7.5 mg tablet 7.5 mg PO DAILY pain 02/25/19 [History Confirmed 02/27/23] multivitamin 1 ea PO DAILY 02/25/19 [History Confirmed 02/27/23] diltiazem HCl 240 mg capsule,extended release 24 hr 240 mg PO DAILY 12/18/21 [History Confirmed 02/27/23] gabapentin 300 mg capsule 300 mg PO QHS 12/18/21 [History Confirmed 02/27/23] loratadine 10 mg tablet (Claritin) 10 mg PO DAILY 12/18/21 [History Confirmed 02/27/23] melatonin 10 mg capsule 10 mg PO HS PRN 12/18/21 [History Confirmed 02/27/23] amoxicillin 875 mg-potassium clavulanate 125 mg tablet 1 tab PO BID #20 tabs 08/19/22 [Rx Confirmed 02/27/23] benzonatate 200 mg capsule 200 mg PO TID PRN cough #20 caps 08/19/22 [Rx Confirmed 02/27/23] PFSH Medical History Acute bronchitis, unspecified Contact with and (suspected) exposure to other viral communicable diseases Diarrhea Endometrial cancer HTN (hypertension) Migraines Non-smoker Surgical History History of appendectomy History of cholecystectomy History of total abdominal hysterectomy Family History Mother Arthritis Migraine Father CAD (coronary artery disease) Hx of CABG Arthritis Social History Smoking Status: Never smoker alcohol intake: never HPI Back pain Chief Complaint: left low back Visit Number: 8 Details: WEST POSADAS is a 62 year old F here today for ongoing low back/left hip pain. Pt. states her last adjustment was effective in relieving her pain slightly. She advises her left low back is a dull ache and extends into her left glute and wraps around into her thigh. Her pain increases when she sits for a length of time and when she is sleeping. She rates her pain 5/10. She has also been experiencing pain for her left calf to her left foot but reports this has improved since her last adjustment. 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 She denies new injury, numbness or tingling. She treats pain at home with heat,stretching, Tylenol, and her gives her massages. Onset: 01/28/23 Location: left low back Duration: frequent Aggravating or associated factors: ADLs, working Relieving factors: chiro Exam Musc General: Yes normal posture, normal gait, joint tenderness and decreased range of motion Cervical Spine: Yes loss of normal cervical lordosis, Yes cervical muscular tenderness bilateral lower , Yes cervical spasm right greater than left lower trapezius and paracervical muscles, left upper intrinsics and Yes misalignment misalignment: C2, C5, C6 and C7 Thoracic/Lumber: Yes thoracic and lumbar spine normal to inspection, Yes paraspinal tenderness bilaterally in the upper thoracic and on the left greater than right (lumbar/pelvic), Yes thoraco- lumbar spasm on the right greater than left (QL, trap) and on the left greater than right (piriformis, glute), Yes Trigger (L SI and glute medius) and Yes misalignment T1, T2, L3, L4, L5 and LIL Sacroiliac joints: on the left (edema) tender to palpation Office Procedures Procedures - Chiropractic Procedures Manipulation: Cervical C6, Lumbar L3, Thoracic T2 and Pelvis LIL Manipulation: 3-4 regions Patient Response: positive Assessment and Plan Assessment and Plan (1) Back pain: Qualifiers: Back pain location: low back pain Chronicity: acute Back pain laterality: left Sciatica presence: without sciatica Qualified Code(s): M54.50 - Low back pain, unspecified (2) Segmental and somatic dysfunction of lumbar region: Status: Acute (3) Bulging lumbar disc: Status: Chronic (4) Segmental and somatic dysfunction of pelvic region: Status: Acute (5) Segmental and somatic dysfunction of thoracic region: Status: Acute (6) Segmental and somatic dysfunction of cervical region: Status: Acute Orders: Orders Chiropractic Treatments Today M51.26 - Other intervertebral disc displacement, lumbar region, M54.9 - Dorsalgia, unspecified, M99.01 - Segmental and somatic dysfunction of cervical region, M99.02 - Segmental and somatic dysfunction of thoracic region, M99.03 - Segmental and somatic dysfunction of lumbar region, M99.05 - Segmental and somatic dysfunction of pelvic region Plan Patient was treated without incident and she is showing improvement. Continue care. Plan Details Goals Barriers: Goals Decrease inflammation and pain Decrease spasm Increase ability to work with less pain Barriers Disc bulge Follow Up: 1 Week Coding Level of Care Code No Charge Diagnoses Acute left-sided low back pain without sciatica M54.50 Back pain location: low back pain Chronicity: acute Back pain laterality: left Sciatica presence: without sciatica Segmental and somatic dysfunction of lumbar region M99.03 Bulging lumbar disc M51.26 Segmental and somatic dysfunction of pelvic region M99.05 Segmental and somatic dysfunction of thoracic region M99.02 Segmental and somatic dysfunction of cervical region M99.01 CPT Codes Procedures - Manipulation: 3-4 regions (79725) 02/27/23 1003 <Electronically signed by Batsheva Charles D.C.> Date Batsheva Charles D.C. Cosigner Signature: Date (if applicable) CC: Charo Swenson DO Work Phone: Start: 02-11-2023 End: 02-11-2023 Procedure Note: See Note; NOTES: [facility] [address] [place] [address] OFFICE VISIT Date of Service: 02/11/23 MR#: [id number] Acct: [id number] Name: WEST POSADAS Rep #: [id number] : 1960 Provider: DAVID Jensen Age/Sex: 62/F [place] [facility] [place] Status: Signed Intake Vital Signs 08/19/22 10:18 Height 5 ft 7 in Intake Visit Reasons: Back pain Chief Complaint: L Low back/hip pain Is patient in pain?: Yes (left low back ) Pain scale (1-10): 1 Allergies midazolam [From Versed] Allergy (Verified 02/11/23 08:39) hypotensive codeine Adverse Reaction (Verified 02/11/23 08:39) Vomiting erythromycin base Adverse Reaction (Verified 02/11/23 08:39) Vomiting Medications hydrochlorothiazide 25 mg tablet 25 mg PO DAILY 02/25/19 [History Confirmed 02/11/23] meloxicam 7.5 mg tablet 7.5 mg PO DAILY pain 02/25/19 [History Confirmed 02/11/23] multivitamin 1 ea PO DAILY 02/25/19 [History Confirmed 02/11/23] diltiazem HCl 240 mg capsule,extended release 24 hr 240 mg PO DAILY 12/18/21 [History Confirmed 02/11/23] gabapentin 300 mg capsule 300 mg PO QHS 12/18/21 [History Confirmed 02/11/23] loratadine 10 mg tablet (Claritin) 10 mg PO DAILY 12/18/21 [History Confirmed 02/11/23] melatonin 10 mg capsule 10 mg PO HS PRN 12/18/21 [History Confirmed 02/11/23] amoxicillin 875 mg-potassium clavulanate 125 mg tablet 1 tab PO BID #20 tabs 08/19/22 [Rx Confirmed 02/11/23] benzonatate 200 mg capsule 200 mg PO TID PRN cough #20 caps 08/19/22 [Rx Confirmed 02/11/23] PFSH Medical History Acute bronchitis, unspecified Contact with and (suspected) exposure to other viral communicable diseases Diarrhea Endometrial cancer HTN (hypertension) Migraines Non-smoker Surgical History History of appendectomy History of cholecystectomy History of total abdominal hysterectomy Family History Mother Arthritis Migraine Father CAD (coronary artery disease) Hx of CABG Arthritis Social History Smoking Status: Never smoker alcohol intake: never HPI Back pain Chief Complaint: left low back Visit Number: 7 Details: WEST POSADAS is a 62 year old F here today for ongoing low back/left hip pain. Pt. states her last adjustment was effective in relieving her pain. She advises her left low back is a dull ache and extends into her left glute. Her pain increases when she sits for a length of time. She has also been experiencing pain for her left calf to her left foot. 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 She denies new injury, numbness or tingling. She treats pain at home with heat,stretching, Tylenol, and her gives her massages. Onset: 01/28/23 Location: left low back Duration: frequent Aggravating or associated factors: ADLs, working Relieving factors: chiro Exam Musc General: Yes normal posture, normal gait, joint tenderness and decreased range of motion Cervical Spine: Yes loss of normal cervical lordosis, Yes cervical muscular tenderness bilateral lower , Yes cervical spasm right greater than left lower trapezius and paracervical muscles, left upper intrinsics and Yes misalignment misalignment: C2, C5, C6 and C7 Thoracic/Lumber: Yes thoracic and lumbar spine normal to inspection, Yes paraspinal tenderness bilaterally in the upper thoracic and on the left greater than right (lumbar/pelvic), Yes thoraco- lumbar spasm (slightly improved) on the right greater than left (QL, trap) and on the left greater than right (piriformis, glute) and Yes misalignment T1, T2, L3, L4, L5 and LIL Sacroiliac joints: on the left (edema) tender to palpation Office Procedures Procedures - Chiropractic Procedures Manipulation: Cervical C6, Lumbar L3, Thoracic T2 and Pelvis LIL Manipulation: 3-4 regions Patient Response: positive Assessment and Plan Assessment and Plan (1) Back pain: Qualifiers: Back pain location: low back pain Chronicity: acute Back pain laterality: left Sciatica presence: with sciatica Sciatica laterality: sciatica of left side Qualified Code(s): M54.42 - Lumbago with sciatica, left side (2) Segmental and somatic dysfunction of lumbar region: Status: Acute (3) Bulging lumbar disc: Status: Chronic (4) Segmental and somatic dysfunction of pelvic region: Status: Acute (5) Segmental and somatic dysfunction of thoracic region: Status: Acute (6) Segmental and somatic dysfunction of cervical region: Status: Acute Orders: Orders Chiropractic Treatments Today M51.26 - Other intervertebral disc displacement, lumbar region, M99.01 - Segmental and somatic dysfunction of cervical region, M99.02 - Segmental and somatic dysfunction of thoracic region, M99.03 - Segmental and somatic dysfunction of lumbar region, M99.05 - Segmental and somatic dysfunction of pelvic region Plan Patient was treated without incident. Follow up in 1 week and monitor patient progress. Plan Details Goals Barriers: Goals Decrease inflammation and pain Decrease spasm Increase ability to work with less pain Barriers Disc bulge Follow Up: 1 Week Coding Level of Care Code No Charge Diagnoses Acute left-sided low back pain with left-sided sciatica M54.42 Back pain location: low back pain Chronicity: acute Back pain laterality: left Sciatica presence: with sciatica Sciatica laterality: sciatica of left side Segmental and somatic dysfunction of lumbar region M99.03 Bulging lumbar disc M51.26 Segmental and somatic dysfunction of pelvic region M99.05 Segmental and somatic dysfunction of thoracic region M99.02 Segmental and somatic dysfunction of cervical region M99.01 CPT Codes Procedures - Manipulation: 3-4 regions ([id number]) 02/11/23 0938 <Electronically signed by Batsheva Charles D.C.> Date Batsheva Charles D.C. Cosigner Signature: Date (if applicable) CC: Charo Swenson DO Work Phone: Start: 10-08-2022 End: 10-08-2022 Procedure Note: See Note; NOTES: [facility] [address] [place] [address]. [address] [place] [address] / REHABILITATION SERVICES INITIAL EVALUATION MR#: [id number] Acct: [id number] Name: WEST POSADAS Rep #: [id number] : 1960 62 From: Jose Botello DPT Referring Dr.: DAVID Charles Status: REG RCR Insurance: [facility] [employer] SEL[employer] PAY INSURANCE Patient's Visit Information WEST POSADAS is a 62 year old F referred to Physical Therapy by Dr. Batsheva Charles DC with a diagnosis of bulging lumbar disc, segmental and somatic dysfunction of lumbar/pelvic reg. Date of Evaluation: 10/08/22 Physical Therapist: Jose Botello DPT - Visit Plan Frequency: 2x /Week Duration: 4 Weeks Plan: Start with extension based progression, but lightly. Add in neutral spine core stability as tolerated. May use US/DN to L side of lumbar spine to reduce muscle guarding as well. - Subjective Pt. is here today for her initial evaluation with diagnosis of bulging lumbar disc, segmental and somatic dysfunction of lumbar/pelvic regions. Pt. reports having increased pain for a few years with intermittent flare ups. Pt. reports having pain in her low back, more left sided and occasionally having pain into her L glute and HS region. Pt. denies and N/T in either LE. She has been seeing chiro with good results, but has had increased pain with her most recent flare up. Pt. has done PT in the past with focus on stretching and piriformis stretching. She has increased pain with increased sitting, better with standing. She does not do any strengthening and has reduced walking due to pain and fear of increasing pain. Pt. is hopeful to reduce symptoms in order to get back to all reacreational and work activities. - Pain Lumbar spine Pain Intensity (Out of 10): 2 Pain Intensity Range: 0, 5 L gluteal region Pain Intensity (Out of 10): 0 Pain Intensity Range: 0, 4 - Objective POSTURE: Pt. has slight reduction in lumbar lordosis. Pt. has normal wt. shift between BLEs. Pt. has increased thoracic kyphosis. PALPATION: Pt. has marked increased muscle tone at mid lumbar spine (erector spinae) on L side. Pain with spring testing at L3-L5 with hypomobility noted. NEURO: normal throughout BLEs. ROM: lumbar spine: flexion mod loss (tight, apprehensive to bend further), extension min loss decrease better, SB min loss bilat NE, rotation min/mod loss bilat NE. Pt. has tight B HS as well. MMT: PT. has 5/5 strength throughout BLEs, except her hips: flexion, abd, ext 4/5 throughout. Core strength: poor. GAIT: Pt. has guarded posture without arm swing during gait. Pt. has no other pain noted. STAIRS: Pt. did well with stairs. No major issues noted. - Special Tests L/S Slump test left side: Negative L/S Slump test right side: Negative L/S Left Straight Leg Raise: Negative L/S Right Straight Leg Raise: Negative Lumbar Standing: Flexion - Mechanical Response: No effect Lumbar Standing: Flexion - Symptoms During Testing: Increases Lumbar Standing: Flexion - Symptoms After Testing: No worse Lumbar Standing: Extension - Mechanical Response: No effect Lumbar Standing: Extension - Symptoms During Testing: Decreases Lumbar Standing: Extension - Symptoms After Testing: Better Lumbar Standing: Right Side Glides - Mechanical Response: No effect Lumbar Standing: Right Side Hemlock - Symptoms During Testing: No effect Lumbar Standing: Right Side Hemlock - Symptoms After Testing: No effect Lumbar Standing: Left Side Hemlock - Mechanical Response: No effect Lumbar Standing: Left Side Hemlock - Symptoms During Testing: No effect Lumbar Standing: Left Side Hemlock - Symptoms After Testing: No effect Lumbar Lying: Flexion - Mechanical Response: No effect Lumbar Lying: Flexion - Symptoms During Testing: No effect Lumbar Lying: Flexion - Symptoms After Testing: No effect Lumbar Lying: Extension - Mechanical Response: No effect Lumbar Lying: Extension - Symptoms During Testing: Decreases Lumbar Lying: Extension - Symptoms After Testing: Better - Balance/Special Test Scores Oswestry Low Back Score: 22 - Goals Goal 1:: LTG: Pt. to be I with HEP. Goal Time Frame: 4-6 Weeks Goal 2:: STG: Pt. to be able to sit for unlimited amount of time without increase in symptoms. Goal Time Frame: 2-4 Weeks Goal 3:: LTG: Pt. to have full lumbar ROM without increase in symptoms. Goal Time Frame: 4-6 Weeks Goal 4:: LTG: Pt. to have increased core and hip strength to 5/5 throughout. Goal Time Frame: 4-6 Weeks Goal 5:: LTG: Pt. to complete all work related activities without increase in symptoms. Goal Time Frame: 4-6 Weeks - Rehabilitation Potential Physical Therapy Diagnosis: Pt. has signs and symptoms consistent with bulging lumbar disc, segmental and somatic dysfunction of lumbar/pelvic regions. Pt. has lumbar spine pain with some radicular symptoms into her glute and mid HS at times. She did have some relief with extension and would benefit from core stability exercises to reduce stress to lumbar spine with all work and recreational activities. Rehabilitation Potential: Good - Anticipated Interventions Patient/Client Instruction: Educate patient on: Condition, Plan of Care, Risk Factors, Benefits of Fitness Program For the Purpose of:: To improve decision making, To facilitate caregiver knowledge, To improve self management, To prevent re-injury, To improve ability to perform tasks related to life management, To improve tolerance to ADL's Therapeutic Exercise to Include: Strength training, Power training, Endurance training, Body mechanics, Postural training, Flexibilty training, "via [employer] Balance Mas, Passive ROM, Active ROM, Dynamic Lumbar Stabilization For the Purpose of:: To decrease pain, To increase ROM, To improve nutrient delivery to tissue, To increase oxygenation perfusion, To improve muscle performance and motor function, To improve ability to perform ADL's, To increase tolerance to activity/condition/position , To improve performance and independence with ADL's Manual Therapy Techniques to Include: Mobilization, Functional dry needling For the Purpose of:: To decrease pain, To decrease swelling/inflammation, To increase ROM, To improve nutrient delivery to tissue, To increase oxygenation perfusion, To improve muscle performance and motor function Ultrasound (thermal/non thermal): Yes For the Purpose of:: To decrease pain, To decrease swelling/inflammation, To increase ROM Thank you for the opportunity to evaluate your patient. For Medicare and Medicare HMO plans, please review the plan of care and approve it. It will need to be FAXED BACK to us at [phone] for Medicare purposes. For Medicare only, by signing this I certify the plan of care. Please let me know if there are questions or concerns regarding this plan of care. Physician Signature: Date: <Electronically signed by Jose Botello DPT> 10/08/22 1131 CC: DAVID Charles; Dr. Charo Swenson DO CLS Signed Charo Swenson DO Work Phone: Start: 10-03-2022 End: 10-03-2022 Procedure Note: See Note; NOTES: [facility] [address] [place] [id number] OFFICE VISIT Date of Service: 10/03/22 MR#: [id number] Acct: [id number] Name: WEST POSADAS Rep #: [id number] : 1960 Provider: DAVID Jensen Age/Sex: 62/F Location: [facility] Status: Signed Intake Intake Visit Reasons: LBP, LEFT HIP Chief Complaint: L Low back/hip pain Allergies midazolam [From Versed] Allergy (Verified 10/03/22 09:16) hypotensive codeine Adverse Reaction (Verified 10/03/22 09:16) Vomiting erythromycin base Adverse Reaction (Verified 10/03/22 09:16) Vomiting Medications hydrochlorothiazide 25 mg tablet 25 mg PO DAILY 02/25/19 [History Confirmed 10/03/22] meloxicam 7.5 mg tablet 7.5 mg PO DAILY pain 02/25/19 [History Confirmed 10/03/22] multivitamin 1 ea PO DAILY 02/25/19 [History Confirmed 10/03/22] diltiazem HCl 240 mg capsule,extended release 24 hr 240 mg PO DAILY 12/18/21 [History Confirmed 10/03/22] gabapentin 300 mg capsule 300 mg PO QHS 12/18/21 [History Confirmed 10/03/22] loratadine 10 mg tablet (Claritin) 10 mg PO DAILY 12/18/21 [History Confirmed 10/03/22] melatonin 10 mg capsule 10 mg PO HS PRN 12/18/21 [History Confirmed 10/03/22] amoxicillin 875 mg-potassium clavulanate 125 mg tablet 1 tab PO BID #20 tabs 08/19/22 [Rx Confirmed 10/03/22] benzonatate 200 mg capsule 200 mg PO TID PRN cough #20 caps 08/19/22 [Rx Confirmed 10/03/22] PFSH Medical History Acute bronchitis, unspecified Contact with and (suspected) exposure to other viral communicable diseases Diarrhea Endometrial cancer HTN (hypertension) Migraines Non-smoker Surgical History History of appendectomy History of cholecystectomy History of total abdominal hysterectomy Family History Mother Arthritis Migraine Father CAD (coronary artery disease) Hx of CABG Arthritis Social History Smoking Status: Never smoker alcohol intake: never HPI LBP, LEFT HIP Chief Complaint: LBP, Left hip Visit Number: 6 Details: WEST POSADAS is a 62 year old F here today for ongoing low back/left hip pain. Pt. states her last adjustment was effective in relieving her pain. She advises she still has a little soreness when she sits for a length of time. Her upper back and neck get tight and restricted at times as well. She denies numbness, tingling, radiating pain or injury. She treats pain at home with heat,stretching, Tylenol, and her gives her massages. Location: low back, left hip Duration: intermittent Aggravating or associated factors: standing, walking Relieving factors: chiro, massage Pain Quality: aching, dull and radiating Exam Musc General: Yes normal posture, normal gait, joint tenderness and decreased range of motion Cervical Spine: Yes loss of normal cervical lordosis, Yes cervical muscular tenderness bilateral lower , Yes cervical spasm right greater than left lower and Yes misalignment misalignment: C2, C5, C6 and C7 Thoracic/Lumber: Yes thoracic and lumbar spine normal to inspection, Yes paraspinal tenderness (slightly improved) on the left greater than right (lumbar/pelvic), Yes thoraco-lumbar spasm (slightly improved) on the right greater than left (QL) and on the left greater than right (piriformis, glute), Yes Trigger (left multifidi, glute) and Yes misalignment T1, T2, L3, L4, L5 and LIL Sacroiliac joints: on the left (edema) tender to palpation Office Procedures Procedures - Chiropractic Procedures Manipulation: Cervical C6, Lumbar L3, Thoracic T2 and Pelvis LIL Manipulation: 3-4 regions Patient Response: positive Assessment and Plan Assessment and Plan (1) Segmental and somatic dysfunction of lumbar region: Status: Acute (2) Bulging lumbar disc: Status: Chronic (3) Segmental and somatic dysfunction of pelvic region: Status: Acute (4) Segmental and somatic dysfunction of thoracic region: Status: Acute (5) Segmental and somatic dysfunction of cervical region: Status: Chronic Orders: Orders Chiropractic Treatments Today M51.26 - Other intervertebral disc displacement, lumbar region, M99.03 - Segmental and somatic dysfunction of lumbar region, M99.05 - Segmental and somatic dysfunction of pelvic region Plan Patient was treated without incident. She has improved quite a bit and will follow up on PRN basis. She continues to do HEP. Plan Details Goals Barriers: Goals Decrease inflammation and pain Decrease spasm Increase ability to work with less pain Barriers Disc bulge Follow Up: 1 x week x 6 weeks (11/05) PRN Coding Level of Care Code No Charge Diagnoses Segmental and somatic dysfunction of lumbar region M99.03 Bulging lumbar disc M51.26 Segmental and somatic dysfunction of pelvic region M99.05 Segmental and somatic dysfunction of thoracic region M99.02 Segmental and somatic dysfunction of cervical region M99.01 CPT Codes Procedures - Manipulation: 3-4 regions (71619) 10/03/22 09 <Electronically signed by Batsheva Charles D.C.> Date Batsheva Charles D.C. Cosigner Signature: Date (if applicable) CC: Charo Swenson DO Work Phone: Start: 10-01-2022 End: 10-01-2022 Procedure Note: See Note; NOTES: [facility] [address] [place] [address] OFFICE VISIT Date of Service: 10/01/22 MR#: [id number] Acct: [id number] Name: WEST POSADAS Rep #: [id number] : 1960 Provider: DAVID Jensen Age/Sex: 62/F Location[facility] Status: Signed Intake Intake Visit Reasons: LBP, LEFT HIP Chief Complaint: L Low back/hip pain Is patient in pain?: Yes (low back) Pain scale (1-10): 2 Allergies midazolam [From Versed] Allergy (Verified 10/01/22 08:34) hypotensive codeine Adverse Reaction (Verified 10/01/22 08:34) Vomiting erythromycin base Adverse Reaction (Verified 10/01/22 08:34) Vomiting Medications hydrochlorothiazide 25 mg tablet 25 mg PO DAILY 02/25/19 [History Confirmed 10/01/22] meloxicam 7.5 mg tablet 7.5 mg PO DAILY pain 02/25/19 [History Confirmed 10/01/22] multivitamin 1 ea PO DAILY 02/25/19 [History Confirmed 10/01/22] diltiazem HCl 240 mg capsule,extended release 24 hr 240 mg PO DAILY 12/18/21 [History Confirmed 10/01/22] gabapentin 300 mg capsule 300 mg PO QHS 12/18/21 [History Confirmed 10/01/22] loratadine 10 mg tablet (Claritin) 10 mg PO DAILY 12/18/21 [History Confirmed 10/01/22] melatonin 10 mg capsule 10 mg PO HS PRN 12/18/21 [History Confirmed 10/01/22] amoxicillin 875 mg-potassium clavulanate 125 mg tablet 1 tab PO BID #20 tabs 08/19/22 [Rx Confirmed 10/01/22] benzonatate 200 mg capsule 200 mg PO TID PRN cough #20 caps 08/19/22 [Rx Confirmed 10/01/22] PFSH Medical History Acute bronchitis, unspecified Contact with and (suspected) exposure to other viral communicable diseases Diarrhea Endometrial cancer HTN (hypertension) Migraines Non-smoker Surgical History History of appendectomy History of cholecystectomy History of total abdominal hysterectomy Family History Mother Arthritis Migraine Father CAD (coronary artery disease) Hx of CABG Arthritis Social History Smoking Status: Never smoker alcohol intake: never HPI LBP, LEFT HIP Chief Complaint: LBP, Left hip Visit Number: 5 Details: WEST POSADAS is a 62 year old F here today for ongoing low back/left hip pain. Pt. states her last adjustment was effective but she went back to work and her pain came back immediately. She complains of low back pain that radiates down into her left hip and buttocks. She states her pain yesterday while at work was a 6/10, after she came home from work she took Tylenol, a muscle relaxer and gave her a massage which helped. She states her pain today is only a 2/10 but she has not been into work yet. She states her pain is aggravated with prolonged sitting. She also reports having spasms in her left side gluteal area last week after working over 6 hr shifts. She denies numbness or injury. She treats pain at home with heat,stretching, Tylenol, and her gives her massages. Location: low back, left hip Duration: intermittent Aggravating or associated factors: sitting Relieving factors: chiro, massage Pain Quality: aching, dull and radiating Exam Musc General: Yes normal posture, normal gait, joint tenderness and decreased range of motion Thoracic/Lumber: Yes thoracic and lumbar spine normal to inspection, Yes paraspinal tenderness on the left greater than right (lumbar/pelvic), Yes thoraco-lumbar spasm on the right greater than left (QL) and on the left greater than right (piriformis, glute), Yes Trigger (left multifidi, glute) and Yes misalignment L3, L4, L5 and LIL Sacroiliac joints: on the left (edema) tender to palpation Office Procedures Procedures - Chiropractic Procedures Manipulation: Lumbar L3 and Pelvis LIL Manipulation: 1-2 regions Traction, Mechanical: Yes Patient Response: positive Assessment and Plan Assessment and Plan (1) Segmental and somatic dysfunction of lumbar region: Status: Acute (2) Bulging lumbar disc: Status: Chronic (3) Segmental and somatic dysfunction of pelvic region: Status: Acute Orders: Orders Chiropractic Treatments Today M51.26 - Other intervertebral disc displacement, lumbar region, M99.03 - Segmental and somatic dysfunction of lumbar region, M99.05 - Segmental and somatic dysfunction of pelvic region Referrals PT Referral M51.26 - Other intervertebral disc displacement, lumbar region, M99.03 - Segmental and somatic dysfunction of lumbar region, M99.05 - Segmental and somatic dysfunction of pelvic region Plan Patient was treated without incident. Continue care. Referring to PT for strength and flexibility. Plan Details Goals Barriers: Goals Decrease inflammation and pain Decrease spasm Increase ability to work with less pain Barriers Disc bulge Follow Up: 1x week x 6 weeks (5/6) Coding Level of Care Code No Charge Diagnoses Segmental and somatic dysfunction of lumbar region M99.03 Bulging lumbar disc M51.26 Segmental and somatic dysfunction of pelvic region M99.05 CPT Codes Procedures - Manipulation: 1-2 regions (22352) Procedures - Traction, Mechanical: Yes (58065) 10/01/22 0909 <Electronically signed by Batsheva Charles D.C.> Date Batsheva Perdomo Signature: Date (if applicable) CC: Charo Leela ARRIOLA Work Phone: Start: 09-24-2022 End: 09-24-2022 Procedure Note: See Note; NOTES: [facility] [address] [place] [address] OFFICE VISIT Date of Service: 09/24/22 MR#: [id number] Acct: [id number] Name: WEST POSADAS Rep #: [id number] : 1960 Provider: DAVID Jensen Age/Sex: 62/F Location[place] [facility] Status: Signed Intake Intake Visit Reasons: LBP, LEFT HIP Chief Complaint: L Low back/hip pain Is patient in pain?: Yes (Low back ) Pain scale (1-10): 2 Allergies midazolam [From Versed] Allergy (Verified 09/24/22 10:42) hypotensive codeine Adverse Reaction (Verified 09/24/22 10:42) Vomiting erythromycin base Adverse Reaction (Verified 09/24/22 10:42) Vomiting Medications hydrochlorothiazide 25 mg tablet 25 mg PO DAILY 02/25/19 [History Confirmed 09/24/22] meloxicam 7.5 mg tablet 7.5 mg PO DAILY pain 02/25/19 [History Confirmed 09/24/22] multivitamin 1 ea PO DAILY 02/25/19 [History Confirmed 09/24/22] diltiazem HCl 240 mg capsule,extended release 24 hr 240 mg PO DAILY 12/18/21 [History Confirmed 09/24/22] gabapentin 300 mg capsule 300 mg PO QHS 12/18/21 [History Confirmed 09/24/22] loratadine 10 mg tablet (Claritin) 10 mg PO DAILY 12/18/21 [History Confirmed 09/24/22] melatonin 10 mg capsule 10 mg PO HS PRN 12/18/21 [History Confirmed 09/24/22] amoxicillin 875 mg-potassium clavulanate 125 mg tablet 1 tab PO BID #20 tabs 08/19/22 [Rx Confirmed 09/24/22] benzonatate 200 mg capsule 200 mg PO TID PRN cough #20 caps 08/19/22 [Rx Confirmed 09/24/22] PFSH Medical History Acute bronchitis, unspecified Contact with and (suspected) exposure to other viral communicable diseases Diarrhea Endometrial cancer HTN (hypertension) Migraines Non-smoker Surgical History History of appendectomy History of cholecystectomy History of total abdominal hysterectomy Family History Mother Arthritis Migraine Father CAD (coronary artery disease) Hx of CABG Arthritis Social History Smoking Status: Never smoker alcohol intake: never HPI LBP, LEFT HIP Chief Complaint: LBP, Left hip Visit Number: 4 Details: WEST POSADAS is a 62 year old F here today for ongoing low back/left hip pain. Pt. states her last adjustment was effective. She complains of mid back aches and low back pain that radiates down into her left buttocks. She states this gets worse with long periods of sitting. She rates her pain today 2/10. She states her pain is aggravated with prolonged sitting. She also reports having spasms in her left side gluteal area last week after working over 6 hr shifts. She denies numbness or injury. She treats pain at home with heat,stretching, Tylenol, and her gives her massages. Location: low back, left hip Duration: intermittent Aggravating or associated factors: sitting Relieving factors: chiro, massage Pain Quality: aching, dull and radiating Exam Musc General: Yes normal posture, normal gait, joint tenderness and decreased range of motion Thoracic/Lumber: Yes thoracic and lumbar spine normal to inspection, Yes paraspinal tenderness (slightly improved) on the left greater than right (lumbar/pelvic), Yes thoraco-lumbar spasm on the right greater than left (QL) and on the left greater than right (piriformis, glute), Yes Trigger (left multifidi, glute) and Yes misalignment L3, L4, L5 and LIL Sacroiliac joints: on the left (edema) tender to palpation Office Procedures Procedures - Chiropractic Procedures Manipulation: Lumbar L3 and Pelvis LIL Manipulation: 1-2 regions Patient Response: positive Assessment and Plan Assessment and Plan (1) Segmental and somatic dysfunction of lumbar region: Status: Acute (2) Bulging lumbar disc: Status: Chronic (3) Segmental and somatic dysfunction of pelvic region: Status: Acute Orders: Orders Chiropractic Treatments Today M51.26 - Other intervertebral disc displacement, lumbar region, M99.03 - Segmental and somatic dysfunction of lumbar region, M99.05 - Segmental and somatic dysfunction of pelvic region Plan Xrays were reviewed with patient and compared to previous study. Increased degenerative change at lower SI joints, bilaterally. Patient was treated without incident. Continue care. Plan Details Goals Barriers: Goals Decrease inflammation and pain Decrease spasm Increase ability to work with less pain Barriers Disc bulge Follow Up: 1x week x 6 weeks (09/05) Coding Level of Care Code No Charge Diagnoses Segmental and somatic dysfunction of lumbar region M99.03 Bulging lumbar disc M51.26 Segmental and somatic dysfunction of pelvic region M99.05 CPT Codes Procedures - Manipulation: 1-2 regions (15529) 09/24/22 1436 <Electronically signed by Batsheva Charles D.C.> Date Batsheva Charles D.C. Cosigner Signature: Date (if applicable) CC: Charo Swenson DO Work Phone: Start: 09-18-2022 End: 09-18-2022 Knee 1 or 2 Views Procedure Note: See Note; NOTES: [facility] [address] [place] [address] Knee 1 or 2 Views MR#: [id number] Acct: [id number] Name: WEST POSADAS Rep #: [id number] : 1960 F 62 From: Charli Aranda DO PCP: Dr. Charo Swenson DO Status: REG CLI Study: Knee 1 or 2 Views Date of Exam: 09/18/22 Exam# [id number] Ordering Dr: Charo Swenson DO STUDY: X-RAY - LEFT KNEE REASON FOR EXAM: Female, 62 years old. Left knee pain. TECHNIQUE: 3 view(s) of the knee. COMPARISON: April 28, 2018. FINDINGS: Normal visualized distal femur. Normal visualized proximal tibia and fibula. Normal proximal tibiofibular articulation. There is no acute fracture, dislocation or destructive osseous pathology. There is severe degenerative arthrosis of the medial femorotibial compartment with severe joint space narrowing. There is mild degenerative arthrosis of the lateral femorotibial compartment. There is severe degenerative arthrosis of the patellofemoral articulation. There is no demonstrated joint effusion. The soft tissue structures are unremarkable. RAD/Knee 1 or 2 Views IMPRESSION: Progressive arthrosis of the left knee without acute fracture or dislocation. Electronically Signed: Charli Aranda DO at 21:41 EDT Reading Location ID and State: [address] [place] [address] Tel [phone], Service support , CC: Dr. Charo Swenson DO Business Intelligence Analyst: Sophie Swenson DO Work Phone: Start: 09-18-2022 Radiologic examination of knee Dr. Charo Swneson Work Phone: Start: 09-18-2022 X-ray of lumbosacral spine Dr. Charo Swenson Work Phone: Start: 09-18-2022 End: 10-01-2022 Procedure Note: See Note; NOTES: [facility] [address] [place] [address] L/S Spine Min 4 Views MR#: [id number] Acct: [id number] Name: WEST POSADAS Rep #: [id number] : 1960 F 62 From: Marcellus Hayes MD PCP: Dr. Charo Swenson DO Status: DEP CLI Study: L/S Spine Min 4 Views Date of Exam: 09/18/22 Exam# [id number] Ordering Dr: Batsheva Charles D.C. INDICATION: Back pain EXAMINATION/TECHNIQUE: X-RAY - XR Spine Lumbar Min 4 Views COMPARISON: 04/14/2018 FINDINGS: VERTEBRAE: Preserved vertebral body height. No fracture. No spondylolisthesis. Preservation of the normal lumbar lordosis. Facet arthrosis increases from superior to inferior. DISCS: Diffuse endplate disease and mild disc space loss appears similar to 04/14/2018 INCLUDED ABDOMEN: Included bowel gas pattern is non-obstructive. RAD/L/S Spine Min 4 Views IMPRESSION: Lumbar spine degenerative change, similar to 04/14/2018. Electronically Signed: Marcellus Hayes MD at 16:53 EDT , CC: DAVID Charles; Dr. Charo Swenson DO Business Intelligence Analyst: Signed Charo Swenson DO Work Phone: Start: 09-18-2022 End: 09-18-2022 Chiropractic Report Procedure Note: See Note; NOTES: [facility] [address] [place] [address] OFFICE VISIT Date of Service: 09/18/22 MR#: [id number] Acct: [id number] Name: WEST POSADAS Rep #: [id number] : 1960 Provider: DAVID Jensen Age/Sex: 62/F [place] [facility] Status: Signed Intake Intake Visit Reasons: LBP/LEFT HIP Chief Complaint: L Low back/hip pain Is patient in pain?: Yes (Low back) Pain scale (1-10): 4 Allergies midazolam [From Versed] Allergy (Verified 09/18/22 11:45) hypotensive codeine Adverse Reaction (Verified 09/18/22 11:45) Vomiting erythromycin base Adverse Reaction (Verified 09/18/22 11:45) Vomiting Medications hydrochlorothiazide 25 mg tablet 25 mg PO DAILY 02/25/19 [History Confirmed 09/18/22] meloxicam 7.5 mg tablet 7.5 mg PO DAILY pain 02/25/19 [History Confirmed 09/18/22] multivitamin 1 ea PO DAILY 02/25/19 [History Confirmed 09/18/22] diltiazem HCl 240 mg capsule,extended release 24 hr 240 mg PO DAILY 12/18/21 [History Confirmed 09/18/22] gabapentin 300 mg capsule 300 mg PO QHS 12/18/21 [History Confirmed 09/18/22] loratadine 10 mg tablet (Claritin) 10 mg PO DAILY 12/18/21 [History Confirmed 09/18/22] melatonin 10 mg capsule 10 mg PO HS PRN 12/18/21 [History Confirmed 09/18/22] amoxicillin 875 mg-potassium clavulanate 125 mg tablet 1 tab PO BID #20 tabs 08/19/22 [Rx Confirmed 09/18/22] benzonatate 200 mg capsule 200 mg PO TID PRN cough #20 caps 08/19/22 [Rx Confirmed 09/18/22] PFSH Medical History Acute bronchitis, unspecified Contact with and (suspected) exposure to other viral communicable diseases Diarrhea Endometrial cancer HTN (hypertension) Migraines Non-smoker Surgical History History of appendectomy History of cholecystectomy History of total abdominal hysterectomy Family History Mother Arthritis Migraine Father CAD (coronary artery disease) Hx of CABG Arthritis Social History Smoking Status: Never smoker alcohol intake: never HPI LBP/LEFT HIP Chief Complaint: LBP, Left Hip Visit Number: 3 Details: WEST POSADAS is a 62 year old F here today for ongoing low back/left hip pain. Pt. states her last adjustment was effective but a few days ago her pain returned. She complains of mid back aches and low back pain that radiates down into her left buttocks all the way to her knee. She states this gets worse the more she sits and after sitting for long periods she notices a tingling sensation down her left leg/buttock.??? She rates her pain today 4/10. She states her pain is aggravated with prolonged sitting. She also reports having spasms in her left side gluteal area last week. She denies numbness or injury. She treats pain at home with heat,stretching, Tylenol, and her gives her massages. Location: low back, left hip Duration: intermittent Aggravating or associated factors: sitting Relieving factors: chiro, massage Pain Quality: aching, dull and radiating Exam Musc General: Yes normal posture, normal gait, joint tenderness and decreased range of motion Thoracic/Lumber: Yes thoracic and lumbar spine normal to inspection, Yes paraspinal tenderness on the left greater than right (lumbar/pelvic), Yes thoraco-lumbar spasm on the right greater than left (QL) and on the left greater than right (piriformis, glute), Yes Trigger (left multifidi, glute) and Yes misalignment L3, L4, L5 and LIL Sacroiliac joints: on the left (edema) tender to palpation Office Procedures Procedures - Chiropractic Procedures Manipulation: Lumbar L3 and Pelvis LIL Manipulation: 1-2 regions Patient Response: positive Assessment and Plan Assessment and Plan (1) Segmental and somatic dysfunction of lumbar region: Status: Acute (2) Bulging lumbar disc: Status: Chronic (3) Segmental and somatic dysfunction of pelvic region: Status: Acute Orders: Orders Chiropractic Treatments Today M51.26 - Other intervertebral disc displacement, lumbar region, M99.03 - Segmental and somatic dysfunction of lumbar region L/S Spine Min 4 Views Today M51.26 - Other intervertebral disc displacement, lumbar region, M99.03 - Segmental and somatic dysfunction of lumbar region Plan Patient was treated without incident. Discussed recent flare up and ordered updated lumbar xrays. Follow up next week and review with patient. Consider acute care tx plan. Plan Details Goals Barriers: Goals Decrease inflammation and pain Decrease spasm Increase ability to work with less pain Barriers Disc bulge Follow Up: 1x week x6 weeks (08/05) Coding Level of Care Code No Charge Diagnoses Segmental and somatic dysfunction of lumbar region M99.03 Bulging lumbar disc M51.26 Segmental and somatic dysfunction of pelvic region M99.05 CPT Codes Procedures - Manipulation: 1-2 regions (69003) 09/18/22 1214 <Electronically signed by Batsheva Charles D.C.> Date Batsheva Charles D.C. Cosigner Signature: Date (if applicable) CC: Charo Swenson DO Work Phone: Start: 08-19-2022 End: 08-19-2022 Chest PA and Lateral Procedure Note: See Note; NOTES: [facility] [address] [place] [id number] Chest PA and Lateral MR#: [id number] Acct: [id number] Name: WEST POSADAS Rep #: [id number] : 1960 F 62 From: Vadim castro MD PCP: Dr. Charo Swenson, DO Status: REG CLI Study: Chest PA and Lateral Date of Exam: 08/19/22 Exam# [id number] Ordering Dr: Stephen Eastman PA PA STUDY: X-RAY CHEST REASON FOR EXAM: Female, 62 years old. Cough TECHNIQUE: PA and lateral views of the chest. COMPARISON: Comparison is made with prior study dated November 08, 2021. FINDINGS: A right-sided simona catheter is seen with the tip at the junction of the superior vena cava and right atrium. Stable mild elevation of the right hemidiaphragm. Scattered calcified granulomas. There is no demonstrated pleural abnormality. Normal size heart. Normal mediastinum and nima. Normal visualized pulmonary arteries. There is atherosclerotic tortuosity of the aortic arch and descending thoracic aorta. There are diffuse degenerative changes of the visualized thoracic spine. Normal visualized ribs, clavicles, and shoulders. There is no demonstrated abnormality of the visualized soft tissue structures of the upper abdomen. RAD/Chest PA and Lateral IMPRESSION: The lungs are clear. No acute abnormality is seen. Electronically Signed: Vadim Wei MD at 12:11 EDT , CC: ALLIE Eastman; Dr. Charo Swenson DO Business Intelligence Analyst: Signed Charo Swenson DO Work Phone: Start: 08-19-2022 Plain chest X-ray Dr. Charo Swenson Work Phone: Start: 08-19-2022 End: 08-19-2022 Urgent Care Visit Report Procedure Note: See Note; NOTES: [facility] [address] [place] [address] [address] [place] [address] OFFICE VISIT Date of Service: 08/19/22 MR#: [id number] Acct: [id number] Name: WEST POSADAS Rep #: [id number] : 1960 Provider: ALLIE wooten Age/Sex: 62/F Location: [facility] Status: Signed Intake Vital Signs 08/19/22 10:18 08/19/22 11:10 Height 5 ft 7 in BP 132/78 H Blood Pressure Location Lt brachial Position Sitting Respiration 18 Pulse 82 Pulse Source Monitor Temp 98.0 F Temp Source Temporal Pulse Oximetry (%) 96 Oxygen Delivery Method room air Intake Visit Reasons: COUGH/CONGESTION/SHORT OF BREATH AT TIMES 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 Accompanied by: None Allergies midazolam [From Versed] Allergy (Verified 08/19/22 11:03) hypotensive codeine Adverse Reaction (Verified 08/19/22 11:03) Vomiting erythromycin base Adverse Reaction (Verified 08/19/22 11:03) Vomiting Medications hydrochlorothiazide 25 mg tablet 25 mg PO DAILY 02/25/19 [History Confirmed 08/19/22] meloxicam 7.5 mg tablet 7.5 mg PO DAILY pain 02/25/19 [History Confirmed 08/19/22] multivitamin 1 ea PO DAILY 02/25/19 [History Confirmed 08/19/22] diltiazem HCl 240 mg capsule,extended release 24 hr 240 mg PO DAILY 12/18/21 [History Confirmed 08/19/22] gabapentin 300 mg capsule 300 mg PO QHS 12/18/21 [History Confirmed 08/19/22] loratadine 10 mg tablet (Claritin) 10 mg PO DAILY 12/18/21 [History Confirmed 08/19/22] melatonin 10 mg capsule 10 mg PO HS PRN 12/18/21 [History Confirmed 08/19/22] amoxicillin 875 mg-potassium clavulanate 125 mg tablet 1 tab PO BID #20 tabs 08/19/22 [Rx Confirmed 08/19/22] benzonatate 200 mg capsule 200 mg PO TID PRN cough #20 caps 08/19/22 [Rx Confirmed 08/19/22] PFSH Medical History Acute bronchitis, unspecified Contact with and (suspected) exposure to other viral communicable diseases Diarrhea Endometrial cancer HTN (hypertension) Migraines Non-smoker Surgical History History of appendectomy History of cholecystectomy History of total abdominal hysterectomy Family History Mother Arthritis Migraine Father CAD (coronary artery disease) Hx of CABG Arthritis Social History Smoking Status: Never smoker alcohol intake: never HPI HPI Details: WEST POSADAS, is a 62 F who presents to the office today for evaluation approximately 1 week history of persistent moist productive purulent cough with slight shortness of breath. No complaints of fever, chills, sweats, headache, myalgias, fatigue, congestion/runny nose, nausea/vomiting/diarrhea, chest pressure/dyspnea on exertion, or back pain. No [id number] products taken to assist. Non-smoker. No other associated symptoms and no alleviating/aggravating factors. PMH significant for history of lung CA, resolved with excision and chemotherapy she so states. ROS Const Constitutional: No other (As above) Exam Const General: cooperative, healthy appearing and no acute distress Orientation: alert, awake and oriented x3 HENMT Head: normal to inspection Ears: hearing grossly normal bilaterally, external ears normal, TM's normal bilaterally and EAC's normal Nose: external nose normal, nares normal, septum normal and no nasal discharge Face and sinus: normal facial exam, sinuses nontender and face symmetric Mouth: oral mucosae normal, lip normal, tongue normal and oropharynx normal Throat: posterior oropharynx normal, tonsils normal, uvula midline and no postnasal drainage Eyes General: appearance normal, both eyes and all related structures Neck Neck: normal visual inspection, full ROM, no lymphadenopathy, no meningeal signs and supple Neck mass: No Thyroid: thyroid normal Lymphatic: no lymphadenopathy noted Chest Chest palpation inspection: normal inspection of the chest Resp Effort Inspection: normal respiratory effort, able to speak in complete sentences and cough Quality of cough: wet (Nonproductive in office today.) Auscultation: Bilateral: Clear to Auscultation Cardio Palpation: normal PMI Rate: regular rate Rhythm: regular rhythm Heart Sounds: S1 normal, S2 normal, no gallops, no murmurs and no rubs Pulses: radial pulses present GI Inspection: normal to inspection Skin General: no rashes or lesions noted Neuro General: patient alert, patient awake and patient oriented x3 Cognition: normal cognition Speech: speech normal Psych Appearance: grossly normal Mental Status: mental status grossly normal Mood: congruent mood Affect: normal affect Speech and Movement: speech and movement normal Attitude: cooperative Thought Process: normal Thought Content: normal Judgment: judgment good Results POC Cepheid RIVKA Cov-2 PCR EMP POC Cepheid RIVKA Cov-2 PCR EMP Not Detected Last Edit by Gosia Mahmood on 08/19/22 11:57 FLU A B: NOT DETECTED. RSV: NOT DETECTED. Coding Level of Care Code Off vis,est,level 4 Diagnoses Contact with and (suspected) exposure to other viral communicable diseases Z20.828 Acute bronchitis, unspecified J20.9 Assessment and Plan Assessment and Plan (1) Contact with and (suspected) exposure to other viral communicable diseases: Status: Acute (2) Acute bronchitis, unspecified: Status: Acute Plan: - cough, sob See POC results. PA and lateral chest x-ray taken today reveals no acute cardiopulmonary pathology per my review, pending radiologist interpretation time patient discharged. Augmentin and benzonatate as prescribed today. Supportive measures as instructed today. Follow-up with PCP in 3 to 5 days should symptoms not improve, sooner should symptoms worsen or any other concerns develop. Patient states acknowledging understanding all the above. This note was generated with [employer] dictation software. It may contain incorrect words, spelling, and punctuation that were not noted in checking the note before signing. Orders: Orders POC Cepheid RIVKA Cov-2 PCR EMP Today R05.9 - Cough, unspecified Chest PA and Lateral Today R05.9 - Cough, unspecified Medications: New amoxicillin-pot clavulanate 875-125 mg 1 TAB PO BID 20 tabs 0RF benzonatate 200 mg PO TID PRN 20 caps 0RF cough Plan Details Goals Barriers: Goals Decrease inflammation and pain Decrease spasm Increase ability to work with less pain Barriers Disc bulge 08/19/22 1224 <Electronically signed by Stephen KELLEY> Date Stephen KELLEY Cosigner Signature: Date (if applicable) CC: Charo Swenson DO Work Phone: Start: 08-08-2022 End: 08-08-2022 Chiropractic Report Procedure Note: See Note; NOTES: [facility] [address] [place] [address] OFFICE VISIT Date of Service: 08/08/22 MR#: [id number] Acct: [id number] Name: WEST POSADAS Rep #: [id number] : 1960 Provider: DAVID Jensen Age/Sex: 62/F [place] [facility] Status: Signed Intake Intake Visit Reasons: LBP/LEFT HIP Chief Complaint: L Low back/hip pain Is patient in pain?: Yes (low back left hip ) Pain scale (1-10): 2 Allergies midazolam [From Versed] Allergy (Verified 08/08/22 14:10) hypotensive codeine Adverse Reaction (Verified 08/08/22 14:10) Vomiting erythromycin base Adverse Reaction (Verified 08/08/22 14:10) Vomiting Medications hydrochlorothiazide 25 mg tablet 25 mg PO DAILY 02/25/19 [History Confirmed 08/08/22] meloxicam 7.5 mg tablet 7.5 mg PO DAILY pain 02/25/19 [History Confirmed 08/08/22] multivitamin 1 ea PO DAILY 02/25/19 [History Confirmed 08/08/22] diltiazem HCl 240 mg capsule,extended release 24 hr 240 mg PO DAILY 12/18/21 [History Confirmed 08/08/22] gabapentin 300 mg capsule 300 mg PO QHS 12/18/21 [History Confirmed 08/08/22] loratadine 10 mg tablet (Claritin) 10 mg PO DAILY 12/18/21 [History Confirmed 08/08/22] melatonin 10 mg capsule 10 mg PO HS PRN 12/18/21 [History Confirmed 08/08/22] PFSH Medical History Diarrhea Endometrial cancer HTN (hypertension) Migraines Non-smoker Surgical History History of appendectomy History of cholecystectomy History of total abdominal hysterectomy Family History Mother Arthritis Migraine Father CAD (coronary artery disease) Hx of CABG Arthritis Social History Smoking Status: Never smoker alcohol intake: never HPI LBP/LEFT HIP Chief Complaint: low back left side Visit Number: 3 Details: WEST POSADAS is a 62 year old F here today for improving low back/left hip pain. Pt. states her last adjustment was effective but she is back to work and her pain has returned. She advises her low back and pelvis are sore and achy. She rates her pain today 2/10. She states her pain intermittently extends into her left hip and down her left leg. She states her pain is aggravated with prolonged sitting. She also reports having spasms in her left side gluteal area last week. She denies numbness or injury. She treats pain at home with heat,stretching, Tylenol, and her gives her massages. Location: low back/left hip Duration: intermittent Aggravating or associated factors: sitting Relieving factors: chiro, massage Pain Quality: aching, dull and radiating Exam Musc General: Yes normal posture, normal gait, joint tenderness and decreased range of motion Thoracic/Lumber: Yes thoracic and lumbar spine normal to inspection, Yes paraspinal tenderness (slightly improved) on the left greater than right (lumbar/pelvic), Yes thoraco-lumbar spasm on the right greater than left (QL) and on the left greater than right (piriformis, glute), Yes Trigger (left multifidi, glute) and Yes misalignment T2, T3, T4, L3, L4, L5 and LIL Sacroiliac joints: on the left (edema) tender to palpation Office Procedures Procedures - Chiropractic Procedures Manipulation: Lumbar L3, Thoracic T3 and Pelvis LIL Manipulation: 3-4 regions Patient Response: positive Assessment and Plan Assessment and Plan (1) Segmental and somatic dysfunction of lumbar region: Status: Acute (2) Segmental and somatic dysfunction of pelvic region: Status: Acute (3) Bulging lumbar disc: Status: Chronic (4) Segmental and somatic dysfunction of thoracic region: Status: Acute Orders: Orders Chiropractic Treatments Today M51.26 - Other intervertebral disc displacement, lumbar region, M99.02 - Segmental and somatic dysfunction of thoracic region, M99.03 - Segmental and somatic dysfunction of lumbar region, M99.05 - Segmental and somatic dysfunction of pelvic region Plan Patient was treated without incident. 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 Plan Details Goals Barriers: Goals Decrease inflammation and pain Decrease spasm Increase ability to work with less pain Barriers Disc bulge Follow Up: 1 Week ( 07/08) Coding Level of Care Code No Charge Diagnoses Segmental and somatic dysfunction of lumbar region M99.03 Segmental and somatic dysfunction of pelvic region M99.05 Bulging lumbar disc M51.26 Segmental and somatic dysfunction of thoracic region M99.02 CPT Codes Procedures - Manipulation: 3-4 regions (93141) 08/08/22 1609 <Electronically signed by Batsheva Charles D.C.> Date Batsheva Charles D.C. Cosigner Signature: Date (if applicable) CC: Charo Swenson DO Work Phone: Start: 07-24-2022 End: 07-29-2022 Chiropractic Report Procedure Note: See Note; NOTES: [facility] [address] [place] [address] OFFICE VISIT Date of Service: 07/24/22 MR#: [id number] Acct: [id number] Name: WEST POSADAS Rep #: [id number] : 1960 Provider: DAVID Jensen Age/Sex: 62/F Location[place] [facility] Status: Signed Intake Vital Signs 01/17/21 13:09 07/18/22 08:02 Height 5 ft 7 in 5 ft 7 in Weight: 230 lb BMI 36.0 BP 161/87 H Respiration 14 Pulse 88 Temp 97.9 F Temp Source Temporal Pulse Oximetry (%) 99 Intake Visit Reasons: LBP/LEFT HIP Chief Complaint: L Low back/hip pain Is patient in pain?: Yes (low back left hip) Pain scale (1-10): 3 Allergies midazolam [From Versed] Allergy (Verified 07/24/22 11:30) hypotensive codeine Adverse Reaction (Verified 07/24/22 11:30) Vomiting erythromycin base Adverse Reaction (Verified 07/24/22 11:30) Vomiting Medications hydrochlorothiazide 25 mg tablet 25 mg PO DAILY 02/25/19 [History Confirmed 07/24/22] meloxicam 7.5 mg tablet 7.5 mg PO DAILY pain 02/25/19 [History Confirmed 07/24/22] multivitamin 1 ea PO DAILY 02/25/19 [History Confirmed 07/24/22] diltiazem HCl 240 mg capsule,extended release 24 hr 240 mg PO DAILY 12/18/21 [History Confirmed 07/24/22] gabapentin 300 mg capsule 300 mg PO QHS 12/18/21 [History Confirmed 07/24/22] loratadine 10 mg tablet (Claritin) 10 mg PO DAILY 12/18/21 [History Confirmed 07/24/22] melatonin 10 mg capsule 10 mg PO HS PRN 12/18/21 [History Confirmed 07/24/22] PFSH Medical History Diarrhea Endometrial cancer HTN (hypertension) Migraines Non-smoker Surgical History History of appendectomy History of cholecystectomy History of total abdominal hysterectomy Family History Mother Arthritis Migraine Father CAD (coronary artery disease) Hx of CABG Arthritis Social History Smoking Status: Never smoker alcohol intake: never HPI LBP/LEFT HIP Chief Complaint: low back left side Visit Number: 2 Details: WEST POSADAS is a 62 year old F here today for improving low back/left hip pain. Pt. states her last adjustment was effective. She advises her low back and left hip are mildly sore and achy. She rates her pain today 3/10. She states her pain intermittently extends into her left hip and down her left leg. She states her pain is aggravated with prolonged sitting. She denies numbness or injury. She treats pain at home with heat,stretching, Tylenol, and her gives her massages. She states chiropractic adjustments are helpful in relieving her pain and discomfort. Location: low back/left hip Duration: intermittent Aggravating or associated factors: bending Relieving factors: chiro Pain Quality: aching, dull and radiating Exam Musc General: Yes normal posture, normal gait, joint tenderness and decreased range of motion Thoracic/Lumber: Yes thoracic and lumbar spine normal to inspection, Yes paraspinal tenderness (slightly improved) on the left greater than right (lumbar/pelvic), Yes thoraco-lumbar spasm on the right greater than left (QL) and on the left greater than right (piriformis, glute) and Yes misalignment T2, T3, T4, L3, L4, L5 and LIL Sacroiliac joints: on the left (edema) tender to palpation Office Procedures Procedures - Chiropractic Procedures Manipulation: Lumbar L3, Thoracic T3 and Pelvis LIL Manipulation: 3-4 regions Patient Response: positive Assessment and Plan Assessment and Plan (1) Segmental and somatic dysfunction of lumbar region: Status: Acute (2) Segmental and somatic dysfunction of pelvic region: Status: Acute (3) Bulging lumbar disc: Status: Chronic (4) Segmental and somatic dysfunction of thoracic region: Status: Acute Orders: Orders Chiropractic Treatments 07/24/22 M51.26 - Other intervertebral disc displacement, lumbar region, M99.02 - Segmental and somatic dysfunction of thoracic region, M99.03 - Segmental and somatic dysfunction of lumbar region, M99.05 - Segmental and somatic dysfunction of pelvic region Plan Patient was treated without incident. Continue care. Plan Details Goals Barriers: Goals Decrease inflammation and pain Decrease spasm Increase ability to work with less pain Barriers Disc bulge Follow Up: PRN Coding Level of Care Code No Charge Diagnoses Segmental and somatic dysfunction of lumbar region M99.03 Segmental and somatic dysfunction of pelvic region M99.05 Bulging lumbar disc M51.26 Segmental and somatic dysfunction of thoracic region M99.02 CPT Codes Procedures - Manipulation: 3-4 regions (85531) 07/29/22 1353 <Electronically signed by Batsheva Charles D.C.> Date Batsheva Charles D.C. Cosigner Signature: Date (if applicable) CC: Charo Swenson DO Work Phone: Start: 07-18-2022 End: 07-18-2022 Emergency Department Summary Procedure Note: See Note; NOTES: [facility] [address] [place] [address] Emergency Department Summary 07/18/22 MR#: [id number] Acct: [id number] Name: WEST POSADAS Rep #: [id number] : 1960 62 From: Luiza Singh DO PCP: Dr. Charo Swenson DO Status:REG ER Location: ED HPI History of Present Illness Chief Complaint: Laceration Informant: patient Narrative Narrative: Patient is a 62-year-old female denies any significant past medical history (chart review shows history of hypertension) presenting with laceration to her left middle finger. Patient was preparing dinner last night when she excellently cut her finger with a paring knife. He continued to bleed throughout the night so she came in today to be evaluated. She has some throbbing pain at the finger. She notes she is right-hand dominant. Denies any associated numbness or tingling. No other complaints at this time. Tetanus Immunization: >10 years PFSH PFSH Medical History Diarrhea Endometrial cancer HTN (hypertension) Migraines Non-smoker Home Medications hydrochlorothiazide 25 mg tablet 25 mg PO DAILY 02/25/19 [History Last Taken 02/25/19] meloxicam 7.5 mg tablet 7.5 mg PO DAILY pain 02/25/19 [History Last Taken 02/25/19] multivitamin 1 ea PO DAILY 02/25/19 [History Last Taken 02/25/19] diltiazem HCl 240 mg capsule,extended release 24 hr 240 mg PO DAILY 12/18/21 [History Last Taken Unknown] gabapentin 300 mg capsule 300 mg PO QHS 12/18/21 [History Last Taken Unknown] loratadine 10 mg tablet (Claritin) 10 mg PO DAILY 12/18/21 [History Last Taken Unknown] melatonin 10 mg capsule 10 mg PO HS PRN 12/18/21 [History Last Taken Unknown] Allergy/AdvReac Type Severity Reaction Status Date / Time midazolam [From Versed] Allergy hypotensive Verified 07/18/22 08:05 codeine AdvReac Vomiting Verified 07/18/22 08:05 erythromycin base AdvReac Vomiting Verified 07/18/22 08:05 Family History Mother Arthritis Migraine Father CAD (coronary artery disease) Hx of CABG Arthritis Surgical History History of appendectomy History of cholecystectomy History of total abdominal hysterectomy Social History Smoking Status: Never smoker alcohol intake: never ROS ROS ED Constitutional Constitutional ED: Denies chills or fever(s) Respiratory/Chest Respiratory/Chest: Denies dyspnea Gastrointestinal Gastrointestinal: Denies nausea Musculoskeletal Musculoskeletal: Reports other Details: Left third finger pain Integumentary Reports other Details: Laceration to the left third finger Neurologic Neurologic: Denies paresthesias or weakness Hematologic/Lymphatic Hematologic/Lymphatic: Denies easy bleeding or easy bruising EXAM Physical Exam Const Vital Signs: 07/18/22 08:02 Temperature 97.9 F Temperature Source Temporal Pulse Rate 88 Respiratory Rate 14 Blood Pressure 161/87 H Blood Pressure Mean 111 Pulse Ox 99 Oxygen Delivery Method Room Air Positive well nourished and well developed General Appearance ED: well developed and NAD HEENT atraumatic Eyes PERRL Neck full ROM Chest Wall inspection of chest normal Resp normal respiratory effort and clear to auscultation bilaterally Cardio regular rhythm and no murmurs Rate: regular rate Extremity normal to inspection and full ROM Extremity Narrative: Normal range of motion with flexion extension of the left third finger. General Extremety ED: Negative for deformity General Extremity: Negative for deformity Neuro oriented x3, moves all extremities, no focal motor deficits and no sensory deficits noted Psych mental status grossly normal Skin Skin Narrative: 0.5 cm L-shaped laceration to the medial aspect of the distal left third finger. No active bleeding at this time. Is full-thickness but more of a skin flap. No other laceration or wound appreciated. MDM MDM MDM Narrative Medical decision making narrative: Patient evaluate for bleeding laceration to her left third finger. Tetanus will be updated. Wound to be cleansed. Is not currently not bleeding. It is a small skin flap and I am concerned that a suture will not hold as the skin flap itself is so thin. Will Dermabond after cleansing it. I do not think she requires empiric antibiotics at this time. Do not think any imaging is indicated as I do not suspect an underlying fracture. Patient is neurovascularly intact. Patient counseled generalized wound care and return precautions. She verbalizes agreement understand this plan. She is offered ibuprofen or Tylenol in the ER but declined states she can just take some after she leaves. Reports that patient left before receiving her tetanus shot. Discharge Plan Triage Chief Complaint: Laceration ED Provider: Luiza Singh Dx/Rx/DC Orders Clinical Impression: Laceration of finger of left hand without foreign body without damage to nail, Bleeding from wound Instructions: ED Laceration, Hand: All Closures Prescriptions: No Action diltiazem HCl 240 mg capsule,extended release 24hr 240 mg PO DAILY gabapentin 300 mg capsule 300 mg PO QHS loratadine [Claritin] 10 mg tablet 10 mg PO DAILY melatonin 10 mg capsule 10 mg PO HS PRN hydrochlorothiazide 25 MG tablet 25 mg PO DAILY multivitamin 1 EACH tablet 1 ea PO DAILY meloxicam 7.5 MG tablet 7.5 mg PO DAILY Primary Care Provider: Charo Swenson Referrals: Charo Swenson DO [Primary Care Provider] - Activity Restrictions/Additional Instructions: Return if you develop signs of infection or increased pain or the bleeding starts again and cannot be controlled at home with direct pressure. Do not apply any Vaseline/petroleum jelly or antibiotic ointment to the glue as it will cause the glue to dissolve. Disposition Disposition: Home, Self Care What to do if you have Problems For any increased pain, shortness of breath, bleeding, nausea or vomiting, chest pain, or any unexpected problems, contact your Primary Care Provider. Call [facility] ([phone]) or report to the closest Emergency Room. Call 911 if necessary. 07/18/22 0938 <Electronically signed by Luiza Singh DO> Cosigner Signature (if applicable): CC: Dr. Charo Swenson DO Signed Charo Swenson DO Work Phone: Start: 07-16-2022 End: 07-16-2022 Chiropractic Report Procedure Note: See Note; NOTES: [facility] [address] [place] [address] OFFICE VISIT Date of Service: 07/16/22 MR#: [id number] Acct: [id number] Name: WEST POSADAS Rep #: [id number] : 1960 Provider: DAVID Jensen Age/Sex: 62/F [place] [facility] Status: Signed Intake Vital Signs 01/17/21 13:09 Height 5 ft 7 in Intake Visit Reasons: LBP/LEFT HIP Chief Complaint: L Low back/hip pain Is patient in pain?: Yes (left hip/ leg) Pain scale (1-10): 3 Allergies midazolam [From Versed] Allergy (Verified 07/16/22 08:17) hypotensive codeine Adverse Reaction (Verified 07/16/22 08:17) Vomiting erythromycin base Adverse Reaction (Verified 07/16/22 08:17) Vomiting Medications hydrochlorothiazide 25 mg tablet 25 mg PO DAILY 02/25/19 [History Confirmed 07/16/22] meloxicam 7.5 mg tablet 7.5 mg PO DAILY pain 02/25/19 [History Confirmed 07/16/22] multivitamin 1 ea PO DAILY 02/25/19 [History Confirmed 07/16/22] diltiazem HCl 240 mg capsule,extended release 24 hr 240 mg PO DAILY 12/18/21 [History Confirmed 07/16/22] gabapentin 300 mg capsule 300 mg PO QHS 12/18/21 [History Confirmed 07/16/22] loratadine 10 mg tablet (Claritin) 10 mg PO DAILY 12/18/21 [History Confirmed 07/16/22] melatonin 10 mg capsule 10 mg PO HS PRN 12/18/21 [History Confirmed 07/16/22] PFSH Medical History Diarrhea Endometrial cancer HTN (hypertension) Migraines Non-smoker Surgical History History of appendectomy History of cholecystectomy History of total abdominal hysterectomy Family History Mother Arthritis Migraine Father CAD (coronary artery disease) Hx of CABG Arthritis Social History Smoking Status: Never smoker alcohol intake: never HPI LBP/LEFT HIP Chief Complaint: low back left side Visit Number: 1 Details: WEST POSADAS is a 62 year old F here today for low back / left hip pain. Pt. presents with a cane and advises her low back and left hip is sore and achy. She rates her pain today 3/10. She states her pain extends into her left hip and down her left leg down to her knee. She states her left leg has a constant heavy feeling and occasionally gives out. She denies numbness or injury. Pt. was seen by her PCP on Friday and was given Prednisone and reports that has been very helpful. She treats pain at home with stretching, Tylenol, and her gives her massages. She states chiropractic adjustments have been effective in relieving her pain in the past. Location: low back left hip Duration: intermittent Aggravating or associated factors: bending Relieving factors: chiro Pain Quality: aching, dull and radiating Exam Musc General: Yes normal posture, normal gait, joint tenderness and decreased range of motion Thoracic/Lumber: Yes thoracic and lumbar spine normal to inspection, Yes paraspinal tenderness on the left greater than right (lumbar/pelvic), Yes thoraco-lumbar spasm on the right greater than left (QL) and on the left greater than right (piriformis, glute) and Yes misalignment T2, T3, T4, L3, L4, L5 and LIL Sacroiliac joints: on the left (edema) tender to palpation Office Procedures Procedures - Chiropractic Procedures Manipulation: Lumbar L3, Thoracic T3 and Pelvis LIL Manipulation: 3-4 regions Patient Response: positive Assessment and Plan Assessment and Plan (1) Segmental and somatic dysfunction of lumbar region: Status: Acute (2) Segmental and somatic dysfunction of pelvic region: Status: Acute (3) Bulging lumbar disc: Status: Chronic (4) Segmental and somatic dysfunction of thoracic region: Status: Acute Orders: Orders Chiropractic Treatments Today M51.26 - Other intervertebral disc displacement, lumbar region, M54.16 - Radiculopathy, lumbar region, M99.03 - Segmental and somatic dysfunction of lumbar region, M99.05 - Segmental and somatic dysfunction of pelvic region Plan Patient was treated without incident. Continue care. Plan Details Goals Barriers: Goals Decrease inflammation and pain Decrease spasm Increase ability to work with less pain Barriers Disc bulge Follow Up: 1 Week Coding Level of Care Code No Charge Diagnoses Segmental and somatic dysfunction of lumbar region M99.03 Segmental and somatic dysfunction of pelvic region M99.05 Bulging lumbar disc M51.26 Segmental and somatic dysfunction of thoracic region M99.02 CPT Codes Procedures - Manipulation: 3-4 regions (39672) 07/16/22 1325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 41.1 RDW Coeff of Papo 12.5 Plt Count 332 MPV 9.2 Immature Gran % (Auto) 0.400 Neut % (Auto) 76.4 H Lymph % (Auto) 15.3 L Upton % (Auto) 5.4 Eos % (Auto) 2.1 Baso % (Auto) 0.4 Absolute Neuts (auto) 6.5 Absolute Lymphs (auto) 1.30 Nucleated RBC % 0 Sodium 140 Potassium 3.6 Chloride 108 H Carbon Dioxide 21.0 Anion Gap 11 BUN 19 H Creatinine 0.75 Estim Creat Clear Calc 78.54 Est GFR (MDRD) Af Amer 102 Est GFR (MDRD) Non-Af 84 BUN/Creatinine Ratio 25.5 H Glucose 148 H Calcium 9.3 Total Bilirubin 0.30 AST 27 ALT 49 Alkaline Phosphatase 71 Troponin I High Sens 4 Total Protein 8.2 Albumin 4.2 Globulin 4.0 Albumin/Globulin Ratio 1.0 Radiography Diagnostic Testing: Radiology Impression Brain CT 01/17/21 13:37 IMPRESSION: Chronic involutional changes of the brain. Small vessel ischemia. Electronically Signed: Marcela Crews MD at 14:48 EDT Tel , Service support , Chest CTA 01/17/21 13:37 IMPRESSION: No demonstrated pulmonary embolism or arterial dissection. No acute cardiopulmonary process. Stable less than 4 mm scattered pulmonary nodules. Stable left adrenal adenoma. Stable 1.3 cm low-attenuation focus within the left adrenal gland, may reflect a colloid cyst. Electronically Signed: Marcela Crews MD at 14:57 EDT Tel , Service support , Discharge Plan Triage Chief Complaint: Syncope ED Provider: Italo Peng Dx/Rx/DC Orders Clinical Impression: Syncope, Headache Instructions: ED Fainting, Uncertain Cause Prescriptions: No Action prednisone 20 mg tablet 20 mg PO DAILY Qty: 18 RF: 0 diltiazem HCl 120 MG capsule 120 mg PO DAILY RF: 0 hydrochlorothiazide 25 MG tablet 25 mg PO DAILY RF: 0 multivitamin 1 EACH tablet 1 ea PO DAILY RF: 0 prednisone 10 MG tablet See Taper mg PO UD RF: 0 meloxicam 7.5 MG tablet 7.5 mg PO DAILY RF: 0 rosuvastatin 10 MG tablet 10 mg PO QHS Qty: 30 RF: 0 Primary Care Provider: Charo Swenson Referrals: Charo Swenson DO [Primary Care Provider] - 1 Week Disposition Disposition: Home, Self Care What to do if you have Problems For any increased pain, shortness of breath, bleeding, nausea or vomiting, chest pain, or any unexpected problems, contact your Primary Care Provider. Call [facility] ([phone]) or report to the closest Emergency Room. Call 911 if necessary. 01/17/21 1633 <Electronically signed by Italo Peng DO> Cosigner Signature (if applicable): CC: Dr. Charo Swenson DO Signed Charo Swenson DO Work Phone: Start: 01-17-2021 End: 01-22-2021 12 Lead EKG Comments: See Note; NOTES: [facility] Cardiovascular Services [address] [place], [place] [address] [address] 12 Lead EKG 01/17/21 1329 MR#: [id number] Acct: [id number] Name: WEST POSADAS Rep #: [id number] : 1960 60 From: Angel Luis Baum MD Attending Dr: Status: DEP ER Ordering Dr: Italo Peng DO Date: 01/17/21 Location: ED Sex: F C Admitted: Test Reason : SYNCOPE Blood Pressure : / mmHG Vent. Rate : 091 BPM Atrial Rate : 091 BPM P-R Int : 174 ms QRS Dur : 088 ms QT Int : 384 ms P-R-T Axes : 028 -16 033 degrees QTc Int : 472 ms Normal sinus rhythm Inferior infarct , age undetermined Abnormal ECG Confirmed by SALVATORE WALTERS, ANGEL LUIS ([id number]), photography editor FELICIANO CLARK ([id number]) on 01/22/2021 8:34:31 AM Referred By: CHINO Confirmed By:ANGEL LUIS BAUM MD 01/22/21 0834 Date Angel Luis Baum MD CC: Dr. Italo Peng DO; Dr. Charo Swenson DO Signed Charo Swenson DO Work Phone: Start: 01-17-2021 End: 01-17-2021 Brain/Head without Contrast Comments: See Note; NOTES: [facility] Imaging Services [address] [place] [address] Brain/Head without Contrast MR#: [id number] Acct: [id number] Name: WEST POSADAS Rep #: [id number] : 1960 F 60 From: Marcela Crews MD PCP: Dr. Charo Swenson DO Status: REG ER Study: Brain/Head without Contrast Date of Exam: 12/31 01/20 Exam# [id number] Ordering Dr: Italo Peng DO STUDY: CT BRAIN WITHOUT CONTRAST REASON FOR EXAM: Female, 60 years old. Headache RADIATION DOSAGE (If Supplied By Facility): CTDIvol = ( 44.99 ) mGy, DLP = ( 782.05 ) mGycm TECHNIQUE: Transaxial CT imaging of the brain was performed without administration of intravenous contrast material. Individualized dose optimization techniques were used for this CT. COMPARISON: MRI dated 01/03/2012 FINDINGS: Normal soft tissue structures. Normal calvarium. There is mild cerebral atrophy with widening of the extra-axial spaces and ventricular dilatation. There are areas of decreased attenuation within the white matter tracts of the supratentorial brain, consistent with microvascular disease changes. Normal basal ganglia and thalami. Normal brainstem. There is mild cerebellar atrophy. There is no intracranial hemorrhage. There are no findings of an acute ischemic infarction. Normal visualized paranasal sinuses. CT/Brain/Head without Contrast IMPRESSION: Chronic involutional changes of the brain. Small vessel ischemia. Electronically Signed: Marcela Crews MD at 14:48 EDT Tel , Service support , CC: Dr. Italo Peng DO; Dr. Charo Swenson DO Business Intelligence Analyst: Signed Charo Swenson DO Work Phone: Start: 01-17-2021 End: 02-01-2021 CTA Chest W/WO Contrast Comments: See Note; NOTES: [facility] Imaging Services [address] [place] [address] CTA Chest W/WO Contrast MR#: [id number] Acct: [id number] Name: WEST POSADAS Rep #: [id number] : 1960 F 60 From: Marcela Crews MD PCP: Dr. Charo Swenson DO Status: REG ER Study: CTA Chest W/WO Contrast Date of Exam: 01/17/21 Exam# [id number] Ordering Dr: Italo Peng DO STUDY: CTA CHEST REASON FOR EXAM: Female, 60 years old. Pulmonary embolism RADIATION DOSAGE (If Supplied By Facility): CTDIvol = ( 15.01 ) mGy, DLP = ( 592.88 ) mGycm TECHNIQUE: The examination was performed with the intravenous administration of IV 100mL Isovue-370. Post-processing of the angiographic images was performed, with multiplanar reformation and 3D reconstruction. Individualized dose optimization techniques were used for this CT. COMPARISON: 09/12/2011 and 11/30/2020 FINDINGS: There is a stable 1.3 cm low-attenuation focus within the left lobe of the thyroid gland Normal enhancement of the main pulmonary artery and right and left pulmonary arteries. Normal enhancement of the bilateral peripheral pulmonary arteries. There is no demonstrated pulmonary embolism. Normal thoracic aorta and visualized great vessels. There is no demonstrated aortic dissection. Normal heart and pericardium. Normal mediastinum. Normal hilar regions. Normal visualized trachea and bronchi. There is no new focal consolidation. There are scattered stable less then 4 mm pulmonary nodules. There are degenerative changes of thoracic spine. The limited images of the upper abdomen demonstrate a stable left adrenal low-attenuation nodule suggestive of an underlying adenoma. CT/CTA Chest W/WO Contrast IMPRESSION: No demonstrated pulmonary embolism or arterial dissection. No acute cardiopulmonary process. Stable less than 4 mm scattered pulmonary nodules. Stable left adrenal adenoma. Stable 1.3 cm low-attenuation focus within the left adrenal gland, may reflect a colloid cyst. Electronically Signed: Marcela Crews MD at 14:57 EDT Tel , Service support , CC: Dr. Italo Peng DO; Dr. Charo Swenson DO Business Intelligence Analyst: Signed Charo Swenson DO Work Phone: Start: 12-26-2020 Total abdominal hysterectomy RADHA MINA MD Start: 11-30-2020 Total abdominal hysterectomy MICHELLE EMMANUEL INTERNAL CONTROLS ANALYST-GATE KEEPER Start: 11-30-2020 End: 02-06-2021 CT Chest, Abd, Pel w/Contrast Comments: See Note; NOTES: [facility] Imaging Services [address] [place] [address] CT Chest, Abd, Pel w/Contrast MR#: [id number] Acct: [id number] Name: WEST POSADAS Rep #: [id number] : 1960 F 60 From: Vadim castro MD PCP: Dr. Charo Swenson, DO Status: REG CLI Study: CT Chest, Abd, Pel w/Contrast Date of Exam: Exam# [id number] Ordering ELIZABETH Capellan A ADDENDUM by Dr. Vadim Wei MD on 02/06/21 at 0810 ADDENDUM ADDENDUM report has been provided. Electronically Signed: Vadim Wei MD at 8:10 EDT , Service support , 02/06/21 0810 Date cc: MICHELLE MACHADO; Dr. Charo Swenson, DO * Signed ADDENDUM by Dr. Vadim Wei MD on 02/06/[address]/CT Chest, Abd, Pel w/Contrast 02/06/21 0817 Date cc: MICHELLE MACHADO; Dr. Charo Swenson, DO * Signed STUDY: CT CHEST, ABDOMEN T PELVIS WITH CONTRAST REASON FOR EXAM: Female, 60 years old. Malignant neoplasm of endometrium RADIATION DOSAGE (If Supplied By Facility): CTDIvol = ( 17.57 ) mGy, DLP = ( 1767.06 ) mGycm TECHNIQUE: Transaxial imaging was performed following intravenous administration of Oral and amp; IV Readi-CAT and amp; 100mL Isovue-300. Individualized dose optimization techniques were used for this CT. COMPARISON: Comparison is made with prior examination dated 09/11/2020. FINDINGS: CHEST Stable small benign appearing bilateral axillary lymph nodes. The previously seen multiple nodules scattered throughout both lungs have almost completely resolved. There is a residual 1 cm nodule in the anterior aspect of the right lower lobe within the mediastinal fat. There is no demonstrated pleural abnormality. Normal heart and pericardium. Normal mediastinum. Normal hilar regions. Normal unenhanced pulmonary arteries. Normal aorta arch and descending thoracic aorta. There are multi-level degenerative changes of the thoracic spine. Stable 2.5 cm fatty nodule in the left adrenal gland. ABDOMEN There is decreased attenuation of the liver consistent with steatosis. The patient is status post cholecystectomy. Normal spleen. Normal pancreas. There is a small, circumscribed, smooth, low attenuation left adrenal mass, consistent with an adrenal adenoma. This measures 2.5 cm. Normal right adrenal gland. Normal right kidney. Normal left kidney. Normal visualized stomach. Normal small intestine. Normal colon. The appendix is visualized and appears normal. Normal abdominal aorta. Normal inferior vena cava. Normal retroperitoneum. Normal abdominal wall. Normal osseous structures. PELVIS Normal urinary bladder. Heterogeneous appearance of the endometrium. Normal visualized small intestine. Normal visualized colon. There is no pelvic fluid. There is no pelvic lymphadenopathy or mass lesion. Normal visualized pelvic arteries. Normal abdominal wall. There are degenerative changes of the visualized lumbar spine. CT/CT Chest, Abd, Pel w/Contrast IMPRESSION: Almost complete resolution of the previously noted nodules in both lungs. Fatty infiltration of the liver. Stable left adrenal adenoma. Heterogeneous appearance of the uterine endometrium. Electronically Signed: Vadim Wei MD at 13:02 EDT , Service support , CC: MICHELLE MACHADO; Dr. Charo Swenson DO Business Intelligence Analyst: Signed Charo Swenson DO Work Phone: Start: 11-06-2020 End: 11-16-2020 Chiropractic Report Comments: See Note; NOTES: [facility] Chiropractic [address] [place] [address] OFFICE VISIT Date of Service: 11/06/20 MR#: [id number] Acct: [id number] Name: WEST POSADAS Rep #: [id number] : 1960 Provider: DAVID Herman Do ssi Age/Sex: 60/F Location[place] [facility] Status: Signed Intake Vital Signs 11/06/20 16:05 BMI 36.6 Intake Visit Reasons: Back Pain Chief Complaint: Low Back Pain Is patient in pain?: Yes Allergies midazolam [From Versed] Allergy (Verified 03/18/19 12:18) hypotensive codeine Adverse Reaction (Verified 03/18/19 12:18) Vomiting erythromycin base Adverse Reaction (Verified 03/18/19 12:18) Vomiting PFSH Medical History Diarrhea HTN (hypertension) Migraines Surgical History History of appendectomy History of cholecystectomy Family History Mother Arthritis Migraine Father CAD (coronary artery disease) Hx of CABG Arthritis Social History Smoking Status: Never smoker alcohol intake: never HPI Back Pain Chief Complaint: Low Back Pain Visit Number: 6 Details: WEST POSADAS is a 60 year old F here today for low back pain that is worse on the left side. She states that recently she began to have left low back pain again with sitting. She states that after sitting for a long period of time she begins to have pain and tingling go into her left leg. She denies any new injury. 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 factors: Chiro Pain Quality: aching, dull, cramping and radiating Exam Musc General: Yes normal posture, normal gait, joint tenderness (T3,T4,L4,L5,L SI) and decreased range of motion Thoracic/Lumber: Yes thoracic and lumbar spine normal to inspection, Yes paraspinal tenderness on the left greater than right (lumbar), Yes thoraco-lumbar spasm on the left greater than right (lumbar-paraspinal and QL, piriformis) and Yes misalignment T3, T4, L3, L4, L5 and LIL Sacroiliac joints: on the left (edema) tender to palpation Office Procedures Procedures - Chiropractic Procedures Manipulation: Lumbar L4, Thoracic T4 and Pelvis LIL Manipulation: 3-4 regions Patient Response: positive Assessment and Plan Assessment and Plan (1) Bulging lumbar disc: Status: Chronic Orders: Orders: Chiropractic Treatments 11/06/20 (2) Segmental and somatic dysfunction of pelvic region: Status: Acute Orders: Orders: Chiropractic Treatments 11/06/20 (3) Segmental and somatic dysfunction of thoracic region: Status: Chronic Orders: Orders: Chiropractic Treatments 11/06/20 (4) Segmental and somatic dysfunction of lumbar region: Status: Acute Orders: Orders: Chiropractic Treatments 11/06/20 (5) Radiculopathy of lumbar region: Status: Chronic Orders: Orders: Chiropractic Treatments 11/06/20 Plan Details Other Orders: Orders: Chiropractic Treatments 11/06/20 M99.01 Additional Comments: Patient was treated without incident. Continue care. Goals Barriers: Goals Decrease inflammation and pain Decrease spasm Increase ability to work with less pain Barriers Disc bulge Follow Up: PRN Coding Level of Care Code No Charge Diagnoses Bulging lumbar disc M51.26 Segmental and somatic dysfunction of pelvic region M99.05 Segmental and somatic dysfunction of thoracic region M99.02 Segmental and somatic dysfunction of lumbar region M99.03 Radiculopathy of lumbar region M54.16 CPT Codes Procedures - Manipulation: 3-4 regions (51645) 11/16/20 1102 <Electronically signed by Batsheva Charles D.C.> Date Batsheva Charles D.C. Cosigner Signature: Date (if applicable) CC: Charo Swenson DO Work Phone: Start: 10-10-2020 End: 10-10-2020 Chiropractic Report Comments: See Note; NOTES: [facility] [address] [place] [address] OFFICE VISIT Date of Service: 09/26/20 MR#: [id number] Acct: [id number] Name: WEST POSADAS Rep #: [id number] : 1960 Provider: DAVID Jensen Age/Sex: 60/F [place] [facility] Status: Signed Intake Vital Signs 10/10/20 09:31 BMI 36.6 Intake Visit Reasons: Back Pain Chief Complaint: Low Back Pain Allergies midazolam [From Versed] Allergy (Verified 03/18/19 12:18) hypotensive codeine Adverse Reaction (Verified 03/18/19 12:18) Vomiting erythromycin base Adverse Reaction (Verified 03/18/19 12:18) Vomiting PFSH Medical History Diarrhea HTN (hypertension) Migraines Surgical History History of appendectomy History of cholecystectomy Family History Mother Arthritis Migraine Father CAD (coronary artery disease) Hx of CABG Arthritis Social History Smoking Status: Never smoker alcohol intake: never HPI Back Pain Chief Complaint: Low Back Pain Visit Number: 5 Details: WEST POSADAS is a 60 year old F here today for low back pain that is worse on the left side. She states that since her last adjustment her left low back pain has been decreased. She continues to have some intermittent stiffness and soreness. She states that she wanted to get an adjustment before a procedure she has coming up. She denies any numbness, tingling, or radiculopathy. 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: Chiro Pain Quality: aching and dull Exam Musc General: Yes normal posture, normal gait, joint tenderness (T3,T4,L4,L5,L SI) and decreased range of motion Thoracic/Lumber: Yes thoracic and lumbar spine normal to inspection, Yes paraspinal tenderness on the left greater than right (lumbar), Yes thoraco-lumbar spasm on the left greater than right (lumbar-paraspinal and QL, piriformis) and Yes misalignment T3, T4, L3, L4, L5 and LIL Sacroiliac joints: on the left (edema) tender to palpation Office Procedures Procedures - Chiropractic Procedures Manipulation: Lumbar L4, Thoracic T4 and Pelvis LIL Manipulation: 3-4 regions Patient Response: positive Assessment and Plan Plan Details Other Orders: Orders: Chiropractic Treatments 09/26/20 M51.26, M99.01, M99.02, M99.03, M99.05, S39.012A Goals Barriers: Goals Decrease inflammation and pain Decrease spasm Increase ability to work with less pain Barriers Disc bulge Follow Up: PRN Coding Level of Care Code No Charge CPT Codes Procedures - Manipulation: 3-4 regions (59169) 10/10/20 0791 <Electronically signed by Batsheva Charles D.C.> Date Batsheva Charles D.C. Cosigner Signature: Date (if applicable) CC: Charo Swenson DO Work Phone: Start: 09-30-2020 Chemotherapy MICHELLE EMMANUEL INTERNAL CONTROLS ANALYST-GATE KEEPER Comment on above: 3 ROUNDS Start: 09-30-2020 Insertion of implantable venous access port MICHELLE EMMANUEL INTERNAL CONTROLS ANALYST-GATE KEEPER Start: 09-12-2020 End: 09-13-2020 Chiropractic Report Comments: See Note; NOTES: [facility] [address] [place] [address] OFFICE VISIT Date of Service: 09/12/20 MR#: [id number] Acct: [id number] Name: WEST POSADAS Rep #: [id number] : 1960 Provider: DAVID Jensen Age/Sex: 60/F [place] [facility] Status: Signed Intake Intake Visit Reasons: Back Pain Chief Complaint: Low Back Pain Is patient in pain?: Yes Allergies midazolam [From Versed] Allergy (Verified 03/18/19 12:18) hypotensive codeine Adverse Reaction (Verified 03/18/19 12:18) Vomiting erythromycin base Adverse Reaction (Verified 03/18/19 12:18) Vomiting PFSH Medical History Diarrhea (Acute) Migraines (Acute) HTN (hypertension) (Chronic) Surgical History History of appendectomy (Acute) History of cholecystectomy (Acute) Family History Mother Arthritis Migraine Father CAD (coronary artery disease) Hx of CABG Arthritis Social History (Updated 09/13/20 @ 11:[address] Batsheva Charles, DAVID) Smoking Status: Never smoker alcohol intake: never HPI Back Pain: Chief Complaint: Low Back Pain Visit Number: 4 Details: WEST POSADAS is a 60 year old F here today for low back pain. She states that her low back flared up this past weekend while doing some housework. She states that she began to have a sore ache banding across her low back and a spasm in her left hip and left buttock. She states that the spasm relaxed but will come back with certain left leg movements like crossing her legs. She denies any numbness, tingling, or radiculopathy. 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: Chiro Pain Quality: aching, dull, cramping Exam Musc General: Yes normal posture, normal gait, joint tenderness (T3,T4,L4,L5,L SI) and decreased ROM Thoracic/Lumber: Yes thoracic and lumbar spine normal to inspection, Yes paraspinal tenderness on the left greater than right (lumbar), Yes thoraco-lumbar spasm on the left greater than right (lumbar-paraspinal and QL, piriformis), Yes misalignment T3, T4, L3, L4, L5, LIL Sacroiliac joints: on the left (with edema) tender to palpation Office Procedures Chiropractic Treatments Procedures Manipulation: Lumbar L4, Thoracic T4, Pelvis LIL Manipulation: 3-4 regions Electronic Stimulation: Yes Electrical Stimulation: Lumbar 15 mins (15) mA Therapy Performed by:: Brenda Burleson Patient Response: positive Assessment Plan Problems 1. Bulging lumbar disc M51.26 2. Segmental and somatic dysfunction of pelvic region M99.05 3. Segmental and somatic dysfunction of thoracic region M99.02 4. Segmental and somatic dysfunction of lumbar region M99.03 Plan Patient was treated without incident. Continue care. Orders Orders: Chiropractic Treatments 09/12/20 M51.26, M99.01, M99.02, M99.03, M99.05 Plan Detail Goals Decrease inflammation and pain Decrease spasm Increase ability to work with less pain Barriers Disc bulge Follow Up PRN Coding Level of Care Code No Charge Diagnoses Bulging lumbar disc M51.26 Segmental and somatic dysfunction of pelvic region M99.05 Segmental and somatic dysfunction of thoracic region M99.02 Segmental and somatic dysfunction of lumbar region M99.03 Additional Codes Procedures - Manipulation: 3-4 regions (29700) Procedures - Electronic Stimulation: Yes (15168) 09/13/20 1108 <Electronically signed by Batsheva Charles D.C.> Date Batsheva Perdomo Signature: Date (if applicable) CC: Charo Swenson DO Work Phone: Start: 09-11-2020 End: 09-11-2020 CT Chest, Abd, Pel w/Contrast Comments: See Note; NOTES: [facility] Imaging Services [address] [place] [address] CT Chest, Abd, Pel w/Contrast MR#: [id number] Acct: [id number] Name: WEST POSADAS Rep #: [id number] : 1960 F 60 From: Herbie De La Cruz MD PCP: Dr. Charo Swenson, Status: [facility] CLI Study: CT Chest, Abd, Pel w/Contrast Date of Exam: Exam# [id number] Ordering Dr: RADHA MINA STUDY: CT CHEST, ABDOMEN T PELVIS WITH CONTRAST REASON FOR EXAM: Female, 60 years old. ENDOMETRIAL CA -- STAGING HIGH GRADE ENDOMETRIAL CA RADIATION DOSAGE (If Supplied By Facility): CTDIvol = ( 23.01 ) mGy, DLP = ( 3406.84 ) mGycm TECHNIQUE: Transaxial imaging was performed following intravenous administration of Oral and amp; IV Readi-CAT and amp; 100mL Isovue-300. Individualized dose optimization techniques were used for this CT. COMPARISON: Recent chest x-rays, CT scan from 2014 FINDINGS: CHEST Lung windows show normally expanded lungs. New since previous study has been development of multiple, too numerous to count, noncalcified nodules scattered throughout both lung ríos suspicious for diffuse pulmonary metastasis. These nodules measure between 0.3 and 1.1 cm. There is no organized infiltrate or pleural effusion. Soft tissue windows show a normal-appearing thyroid gland. There are scattered subcentimeter axillary and mediastinal lymph nodes. Normal heart and pericardium. Normal mediastinum. Normal hilar regions. Normal unenhanced pulmonary arteries. Normal aorta arch and descending thoracic aorta. There are multi-level degenerative changes of the thoracic spine. ABDOMEN Normal liver. There are surgical clips in the gallbladder fossa consistent with a prior cholecystectomy. Normal spleen. Normal pancreas. Stable 2.0 x 1.6 cm left adrenal adenoma, right adrenal is unremarkable. Normal right kidney. Normal left kidney. Normal visualized stomach. Normal small intestine. Normal colon. There is non-visualization of the appendix. Normal abdominal aorta. Normal inferior vena cava. Normal retroperitoneum. Normal abdominal wall. There are diffuse degenerative changes of the visualized lumbar spine. Bladder is unremarkable. Uterus is still present, it is heterogeneous and enlarged, the endometrium cannot be accurately evaluated with CT. There is no pelvic fluid. There is no pelvic lymphadenopathy or mass lesion. Normal visualized pelvic arteries. CT/CT Chest, Abd, Pel w/Contrast IMPRESSION: Multiple new suspicious, too numerous to count, noncalcified nodules in both lung ríos consistent with diffuse pulmonary metastasis No suspicious axillary, mediastinal, or perihilar adenopathy No pleural or pericardial effusions No suspicious solid organ abnormality, stable left adrenal adenoma. No change since 2016 No free intraperitoneal fluid, air, or suspicious adenopathy Uterus is again identified it is heterogeneous and the endometrium cannot be accurately evaluated with CT. Patient has known endometrial carcinoma Degenerative bony changes Electronically Signed: Camryn De La Cruz MD at 16:42 EDT , Service support , CC: Dr. Charo Swenson, DO; RADHA MINA Business Intelligence Analyst: Signed Radha Mina Work Phone: Start: 09-05-2020 End: 09-05-2020 Chiropractic Report Comments: See Note; NOTES: [facility] [address] [place], [place] [id number] OFFICE VISIT Date of Service: 09/05/20 MR#: [id number] Acct: [id number] Name: WEST POSADAS Rep #: [id number] : 1960 Provider: DAVID Jensen Age/Sex: 60/F [place] [facility] Status: Signed Intake Intake Visit Reasons: Back Pain Chief Complaint: Low Back Pain Is patient in pain?: Yes Allergies midazolam [From Versed] Allergy (Verified 03/18/19 12:18) hypotensive codeine Adverse Reaction (Verified 03/18/19 12:18) Vomiting erythromycin base Adverse Reaction (Verified 03/18/19 12:18) Vomiting PFSH Medical History Diarrhea (Acute) Migraines (Acute) HTN (hypertension) (Chronic) Surgical History History of appendectomy (Acute) History of cholecystectomy (Acute) Family History Mother Arthritis Migraine Father CAD (coronary artery disease) Hx of CABG Arthritis Social History (Updated 09/05/20 @ 09:[address] Batsheva Charles, DAVID) Smoking Status: Never smoker alcohol intake: never HPI Back Pain: Chief Complaint: Low Back Pain Visit Number: 3 Details: WEST POSADAS is a 60 year old F here today for ongoing low back pain. She states that this past weekend she had a flare-up of her low back pain. She states that she has a sore ache that is centralized on the left side of her low back and does not radiate. She has the usual tightness and pain in her neck and upper back from working. She denies any new injury. She denies any numbness, tingling, or radiculopathy. 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 Pain Quality: aching, dull, cramping Exam Musc General: Yes normal posture, normal gait, joint tenderness (C5,C6,T3,T4,L4,L5,L SI) and decreased ROM Cervical Spine: Yes loss of normal cervical lordosis, Yes cervical muscular tenderness, Yes cervical spasm right greater than left lower: trapezius and paracervical muscles, Yes misalignment misalignment: C5, C6 Thoracic/Lumber: Yes thoracic and lumbar spine normal to inspection, Yes paraspinal tenderness on the left greater than right (lumbar), Yes thoraco-lumbar spasm on the left greater than right (lumbar-paraspinal and QL, piriformis), Yes misalignment T3, T4, L3, L4, L5, LIL Sacroiliac joints: on the left (with edema) tender to palpation Office Procedures Chiropractic Treatments Procedures Manipulation: Cervical C6, Lumbar L4, Thoracic T3, Pelvis LIL Manipulation: 3-4 regions Electronic Stimulation: Yes Electrical Stimulation: Lumbar 15 mins (15) mA Therapy Performed by:: Brenda Burleson Patient Response: positive Assessment Plan Problems 1. Bulging lumbar disc M51.26 2. Segmental and somatic dysfunction of pelvic region M99.05 3. Segmental and somatic dysfunction of thoracic region M99.02 4. Segmental and somatic dysfunction of lumbar region M99.03 5. Segmental and somatic dysfunction of cervical region M99.01 Plan Patient was treated without incident. She stated that she was recently diagnosed with endometrial cancer and has a hysterectomy scheduled. Continue care. Orders Orders: Chiropractic Treatments Today M51.26, M99.02, M99.03, M99.05 Plan Detail Goals Decrease inflammation and pain Decrease spasm Increase ability to work with less pain Barriers Disc bulge Follow Up PRN Coding Level of Care Code No Charge Diagnoses Bulging lumbar disc M51.26 Segmental and somatic dysfunction of pelvic region M99.05 Segmental and somatic dysfunction of thoracic region M99.02 Segmental and somatic dysfunction of lumbar region M99.03 Segmental and somatic dysfunction of cervical region M99.01 Additional Codes Procedures - Manipulation: 3-4 regions (71597) Procedures - Electronic Stimulation: Yes (67323) 09/05/20 0923 <Electronically signed by Batsheva Charles D.C.> Date aBtsheva Charles D.C. Cosigner Signature: Date (if applicable) CC: Charo Swenson Start: 07-26-2020 End: 07-26-2020 Pelvic (Non ) Comments: See Note; NOTES: [facility] Imaging Services [address] [place] [address] Pelvic (Non ) MR#: [id number] Acct: [id number] Name: WEST POSADAS Rep #: [id number] : 1960 F 60 From: Jerry Willis MD PCP: Dr. Charo Swenson DO Status: REG CLI Study: Pelvic (Non ) Date of Exam: 07/26/20 Exam# [id number] Ordering Dr: Michelle Cuellar DO STUDY: ULTRASOUND TRANSVAGINAL CLINICAL: Female, 60 years old. POST MENOPAUSAL BLEEDING TECHNIQUE: Transvaginal COMPARISON: None. FINDINGS: Normal uterine size measuring 6.9 x 5.3 x 4.4 cm in maximal craniocaudal dimension. There are no myometrial masses. Thickened endometrial thickness measuring 1.6 cm and is heterogeneous... There are no endometrial masses, and there is no fluid in the endometrial cavity. Normal uterine cervix. Normal right ovary, measuring 3 x 1.7 x 1.4 cm. There are multiple follicles without a dominant cyst. Normal left ovary, measuring 0.5 x 1.3 x 1.2 cm. There are multiple follicles without a dominant cyst. There is no free fluid in the pelvis. No significant change since prior exam US/Pelvic (Non ) IMPRESSION: Heterogeneous appearing thickened endometrial lining of uncertain clinical significance. Clinical correlation recommended Electronically Signed: Jerry Willis MD at 19:01 EST , Service support , CC: Dr. Michelle Cuellar DO; Dr. Charo Swenson DO Business Intelligence Analyst: Signed Charo Swenson Start: 07-26-2020 End: 07-26-2020 Transvaginal Non- Comments: See Note; NOTES: [facility] Imaging Services [address] [place] [address] Transvaginal Non- MR#: [id number] Acct: [id number] Name: WEST POSADAS Rep #: [id number] : 1960 F 60 From: Jerry Willis MD PCP: Dr. Charo Swenson DO Status: REG CLI Study: Transvaginal Non- Date of Exam: Exam# [id number] Ordering Dr: Michelle Cuellar DO STUDY: ULTRASOUND TRANSVAGINAL CLINICAL: Female, 60 years old. POST MENOPAUSAL BLEEDING TECHNIQUE: Transvaginal COMPARISON: None. FINDINGS: Normal uterine size measuring 6.9 x 5.3 x 4.4 cm in maximal craniocaudal dimension. There are no myometrial masses. Thickened endometrial thickness measuring 1.6 cm and is heterogeneous... There are no endometrial masses, and there is no fluid in the endometrial cavity. Normal uterine cervix. Normal right ovary, measuring 3 x 1.7 x 1.4 cm. There are multiple follicles without a dominant cyst. Normal left ovary, measuring 0.5 x 1.3 x 1.2 cm. There are multiple follicles without a dominant cyst. There is no free fluid in the pelvis. No significant change since prior exam US/Transvaginal Non- IMPRESSION: Heterogeneous appearing thickened endometrial lining of uncertain clinical significance. Clinical correlation recommended Electronically Signed: Jerry Willis MD at 19:01 EST , Service support , CC: Dr. Michelle Cuellar DO; Dr. Charo Swenson DO Business Intelligence Analyst: Signed Charo Swenson Start: 07-24-2020 End: 07-24-2020 SCRN MAMM (CAD)W/WENCESLAO BILAT Comments: See Note; NOTES: [facility] Imaging Services [address] [place] [address] SCRN MAMM (CAD)W/WENCESLAO BILAT MR#: [id number] Acct: [id number] Name: WEST POSADAS Rep #: [id number] : 1960 F 60 From: Vadim castro MD PCP: Dr. Charo Swenson, Status: [facility] Study: SCRN MAMM (CAD)W/WENCESLAO BILAT Date of Exam: 07/04 07/23 Exam# [id number] Ordering Dr: Charo Swenson DO MAMMOGRAPHY - BILATERAL SCREENING REASON FOR EXAM: Female, 60 years old. Routine annual screening examination. PERTINENT HISTORY: Non-contributory. TECHNIQUE: Digital bilateral breast ewnceslao (3D mammographic acquisition) in the CC and MLO projections. 2-D mediolateral oblique (MLO) and craniocaudad (CC) views of both breasts were obtained. CAD: Full Field Digital Mammography with Computer Added Detection was performed. COMPARISON: Comparison is made with prior study dated 03/04/2019 and 09/20/2016. FINDINGS: Breast Composition: The breasts are heterogeneously dense, which may obscure small masses. There are no dominant masses or suspicious calcifications. Stable small benign appearing bilateral axillary lymph nodes. No other significant abnormalities are identified. There has been no significant change since the prior study. BI/SCRN MAMM (CAD)W/WENCESLAO BILAT IMPRESSION: Stable bilateral screening mammogram. Yearly follow-up mammogram recommended. (A) ASSESSMENT CATEGORY: BIRADS Category 2: Benign. A letter regarding these results will be sent to the patient by the facility within 30 days. Approximately 10% of breast cancers are not detected by mammography. A normal mammogram should not delay biopsy of a clinically suspicious abnormality. [id number] Electronically Signed: Vadim Wei MD at 13:05 EST , Service support , CC: ; Dr. Charo Swenson DO Business Intelligence Analyst: Signed Charo Swenson Work Phone: Start: 07-18-2020 End: 07-27-2020 Chiropractic Report Comments: See Note; NOTES: [facility] [address] [place] [address] OFFICE VISIT Date of Service: 07/18/20 MR#: [id number] Acct: [id number] Name: WEST POSADAS Rep #: [id number] : 1960 Provider: DAVID Jensen Age/Sex: 60/F Location: [facility] [place] Status: Signed Intake Intake Visit Reasons: Back Pain Chief Complaint: Low Back Pain Is patient in pain?: Yes Allergies midazolam [From Versed] Allergy (Verified 03/18/19 12:18) hypotensive codeine Adverse Reaction (Verified 03/18/19 12:18) Vomiting erythromycin base Adverse Reaction (Verified 03/18/19 12:18) Vomiting PFSH Medical History Diarrhea (Acute) Migraines (Acute) HTN (hypertension) (Chronic) Surgical History History of appendectomy (Acute) History of cholecystectomy (Acute) Family History Mother Arthritis Migraine Father CAD (coronary artery disease) Hx of CABG Arthritis Social History (Updated 07/27/20 @ 09:[address] Batsheva Charles, DAVID) Smoking Status: Never smoker alcohol intake: never HPI Back Pain: Chief Complaint: Low Back Pain Visit Number: 2 Details: WEST POSADAS is a 60 year old F here today for low back pain. She states that she continues to have a frequent stiff, sore ache banding across her low back going into her hips. She states that the pain is worse on the left side. She states that she also feels some aching and heaviness in her left leg. She denies any numbness, tingling, or radiculopathy. 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 Pain Quality: aching, dull, cramping Exam Musc General: Yes normal posture, normal gait, joint tenderness (T3,T4,L4,L5,L SI) and decreased ROM Thoracic/Lumber: Yes thoracic and lumbar spine normal to inspection, Yes paraspinal tenderness on the left greater than right (lumbar), Yes thoraco-lumbar spasm on the left greater than right (lumbar-paraspinal and QL, piriformis), Yes misalignment T3, T4, L3, L4, L5, LIL Sacroiliac joints: on the left (with edema) tender to palpation Office Procedures Chiropractic Treatments Procedures Manipulation: Lumbar L4, Thoracic T4, Pelvis LIL Manipulation: 3-4 regions Electronic Stimulation: Yes Electrical Stimulation: Lumbar 15 mins (26) mA Therapy Performed by:: Brenda Burleson Traction, Mechanical: Yes Patient Response: positive Assessment Plan Problems 1. Bulging lumbar disc M51.26 2. Segmental and somatic dysfunction of pelvic region M99.05 3. Segmental and somatic dysfunction of thoracic region M99.02 4. Segmental and somatic dysfunction of lumbar region M99.03 Plan Patient was treated without incident. Continue care. Orders Orders: Chiropractic Treatments 07/18/20 M51.26, M99.02, M99.03, M99.05 Plan Detail Goals Decrease inflammation and pain Decrease spasm Increase ability to work with less pain Barriers Disc bulge Follow Up PRN Coding Level of Care Code No Charge Diagnoses Bulging lumbar disc M51.26 Segmental and somatic dysfunction of pelvic region M99.05 Segmental and somatic dysfunction of thoracic region M99.02 Segmental and somatic dysfunction of lumbar region M99.03 Additional Codes Procedures - Manipulation: 3-4 regions (97530) Procedures - Electronic Stimulation: Yes (79824) Procedures - Traction, Mechanical: Yes (53991) 07/27/20 0955 <Electronically signed by Batsheva Dossi D.C.> Date Batsheva Perdomo Signature: Date (if applicable) CC: Charotea Swenson Start: 06-27-2020 End: 07-13-2020 Chiropractic Report Comments: See Note; NOTES: [facility] [address] [place] [address] OFFICE VISIT Date of Service: 06/27/20 MR#: [id number] Acct: [id number] Name: WEST POSADAS Rep #: [id number] : 1960 Provider: DAVID Jensen Age/Sex: 60/F [place] [facility] Status: Signed Intake Intake Visit Reasons: Back Pain Chief Complaint: Low Back Pain Allergies midazolam [From Versed] Allergy (Verified 03/18/19 12:18) hypotensive codeine Adverse Reaction (Verified 03/18/19 12:18) Vomiting erythromycin base Adverse Reaction (Verified 03/18/19 12:18) Vomiting PFSH Medical History Diarrhea (Acute) Migraines (Acute) HTN (hypertension) (Chronic) Surgical History History of appendectomy (Acute) History of cholecystectomy (Acute) Family History Mother Arthritis Migraine Father CAD (coronary artery disease) Hx of CABG Arthritis Social History (Updated 07/13/20 @ 10:[address] Btasheva Charles, DAVID) Smoking Status: Never smoker alcohol intake: never HPI Back Pain: Chief Complaint: Low Back Pain Visit Number: 1 Details: WEST POSADAS is a 60 year old F here today for low back pain. She states that her pain was decreased after her last adjustment but she had a sore ache return to her left low back. There is also a tight ache in her neck going into her bilateral upper back. 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 She denies any numbness, tingling, or radiculopathy. 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 Pain Quality: aching, dull, cramping Exam Musc General: Yes normal posture, normal gait, joint tenderness (T3,T4,L4,L5,L SI) and decreased ROM Thoracic/Lumber: Yes thoracic and lumbar spine normal to inspection, Yes paraspinal tenderness on the left greater than right (lumbar), Yes thoraco-lumbar spasm on the left greater than right (lumbar-paraspinal and QL, piriformis), Yes misalignment T3, T4, L3, L4, L5, LIL Sacroiliac joints: on the left (with edema) tender to palpation Office Procedures Chiropractic Treatments Procedures Manipulation: Lumbar L4, Thoracic T4, Pelvis LIL Manipulation: 3-4 regions Electrical Stimulation: Lumbar 15 mins (24) mA, Thoracic Therapy Performed by:: Brenda Burleson Patient Response: positive Assessment Plan Problems 1. Bulging lumbar disc M51.26 2. Segmental and somatic dysfunction of pelvic region M99.05 3. Segmental and somatic dysfunction of thoracic region M99.02 4. Segmental and somatic dysfunction of lumbar region M99.03 Plan Patient was treated without incident. Continue care. Orders Orders: Chiropractic Treatments 06/27/20 M51.26, M99.02, M99.03, M99.05 Plan Detail Goals Decrease inflammation and pain Decrease spasm Increase ability to work with less pain Barriers Disc bulge Follow Up PRN Coding Level of Care Code No Charge Diagnoses Bulging lumbar disc M51.26 Segmental and somatic dysfunction of pelvic region M99.05 Segmental and somatic dysfunction of thoracic region M99.02 Segmental and somatic dysfunction of lumbar region M99.03 Additional Codes Procedures - Manipulation: 3-4 regions (30827) 07/13/20 1040 <Electronically signed by Batsheva Charles D.C.> Date Batsheva Perdomo Signature: Date (if applicable) CC: Charo Swenson Start: 05-09-2020 End: 05-10-2020 Chiropractic Report Comments: See Note; NOTES: [facility] [address] [place] [address] OFFICE VISIT Date of Service: 05/09/20 MR#: [id number] Acct: [id number] Name: WEST POSADAS Rep #: [id number] : 1960 Provider: DAVID Jensen Age/Sex: 60/F [place] [facility] Status: Signed Intake Intake Visit Reasons: Back Pain Chief Complaint: Low Back Pain Allergies midazolam [From Versed] Allergy (Verified 03/18/19 12:18) hypotensive codeine Adverse Reaction (Verified 03/18/19 12:18) Vomiting erythromycin base Adverse Reaction (Verified 03/18/19 12:18) Vomiting PFSH Medical History Diarrhea (Acute) Migraines (Acute) HTN (hypertension) (Chronic) Surgical History History of appendectomy (Acute) History of cholecystectomy (Acute) Family History Mother Arthritis Migraine Father CAD (coronary artery disease) Hx of CABG Arthritis Social History (Updated 05/10/20 @ 09:[address] Batsheva Charles, DAVID) Smoking Status: Never smoker alcohol intake: never HPI Back Pain: Chief Complaint: Low Back Pain Visit Number: 13 Details: WEST POSADAS is a 60 year old F here today for low back pain. She states that her pain was decreased after her last adjustment. She states that a deep sore ache has returned to her low back. She states that her pain is worsened from prolonged sitting at work. She denies any numbness, tingling, or radiculopathy. 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 Pain Quality: aching, dull, cramping Exam Musc General: Yes normal posture, normal gait, joint tenderness (T3,T4,L4,L5,L SI) and decreased ROM Thoracic/Lumber: Yes thoracic and lumbar spine normal to inspection, Yes paraspinal tenderness on the left greater than right (lumbar), Yes thoraco-lumbar spasm on the left greater than right (lumbar-paraspinal and QL, piriformis), Yes misalignment T3, T4, L3, L4, L5, LIL Sacroiliac joints: on the left (with edema) tender to palpation Office Procedures Chiropractic Treatments Procedures Manipulation: Lumbar L4, Thoracic T3, Pelvis LIL Manipulation: 3-4 regions Electronic Stimulation: Yes Electrical Stimulation: Lumbar 15 mins (20) mA Therapy Performed by:: Brenda Burleson Patient Response: positive Assessment Plan Problems 1. Segmental and somatic dysfunction of lumbar region M99.03 2. Segmental and somatic dysfunction of thoracic region M99.02 3. Segmental and somatic dysfunction of pelvic region M99.05 4. Bulging lumbar disc M51.26 Plan Patient was treated without incident. Continue care as needed. Orders Orders: Chiropractic Treatments 05/09/20 M51.26, M99.02, M99.03, M99.05 Plan Detail Goals Decrease inflammation and pain Decrease spasm Increase ability to work with less pain Barriers Disc bulge Follow Up PRN Coding Level of Care Code No Charge Diagnoses Segmental and somatic dysfunction of lumbar region M99.03 Segmental and somatic dysfunction of thoracic region M99.02 Segmental and somatic dysfunction of pelvic region M99.05 Bulging lumbar disc M51.26 Additional Codes Procedures - Manipulation: 3-4 regions (27932) Procedures - Electronic Stimulation: Yes ([id number]) 05/10/20 0909 <Electronically signed by Batsheva Charles D.C.> Date Batsheva Charles D.C. Cosigner Signature: Date (if applicable) CC: Charo Swenson Start: 04-06-2020 End: 04-11-2020 Chiropractic Report Comments: See Note; NOTES: [facility] [address] [place] [address] OFFICE VISIT Date of Service: 04/06/20 MR#: [id number] Acct: [id number] Name: WEST POSADAS Rep #: [id number] : 1960 Provider: DAVID Jensen Age/Sex: 60/F [place] [facility] Status: Signed Intake Intake Visit Reasons: Back Pain Chief Complaint: Low Back Pain Allergies midazolam [From Versed] Allergy (Verified 03/18/19 12:18) hypotensive codeine Adverse Reaction (Verified 03/18/19 12:18) Vomiting erythromycin base Adverse Reaction (Verified 03/18/19 12:18) Vomiting PFSH Medical History Diarrhea (Acute) Migraines (Acute) HTN (hypertension) (Chronic) Surgical History History of appendectomy (Acute) History of cholecystectomy (Acute) Family History Mother Arthritis Migraine Father CAD (coronary artery disease) Hx of CABG Arthritis Social History (Updated 04/11/20 @ 11:[address] Batsheva Charles, DAVID) Smoking Status: Never smoker alcohol intake: never HPI Back Pain: Chief Complaint: Low Back Pain Visit Number: 12 Details: WEST POSADAS is a 60 year old F here today for low back pain that is worse on the left side. She states that her low back pain continues to improve and she now has days without pain. She states that she continues to have a sore ache after working all day. She believes this is from prolonged sitting and poor posture. She denies any numbness, tingling, or radiculopathy. 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 Pain Quality: aching, dull, cramping Exam Musc General: Yes normal posture, normal gait, joint tenderness (T3,T4,L4,L5,L SI) and decreased ROM Thoracic/Lumber: Yes thoracic and lumbar spine normal to inspection, Yes paraspinal tenderness on the left greater than right (lumbar), Yes thoraco-lumbar spasm on the left greater than right (lumbar-paraspinal and QL, piriformis), Yes misalignment T3, T4, L3, L4, L5, LIL Sacroiliac joints: on the left (with edema) tender to palpation Office Procedures Chiropractic Treatments Procedures Manipulation: Lumbar L4, Thoracic T4, Pelvis LIL Manipulation: 3-4 regions Electronic Stimulation: Yes Electrical Stimulation: Lumbar 15 mins (15) mA Therapy Performed by:: Brenda Burleson Patient Response: positive Assessment Plan Problems 1. Bulging lumbar disc M51.26 2. Segmental and somatic dysfunction of pelvic region M99.05 3. Segmental and somatic dysfunction of thoracic region M99.02 4. Segmental and somatic dysfunction of lumbar region M99.03 Plan Patient was treated without incident. Continue care. Orders Orders: Chiropractic Treatments 04/06/20 M51.26, M99.01, M99.02, M99.03, M99.05 Plan Detail Goals Decrease inflammation and pain Decrease spasm Increase ability to work with less pain Barriers Disc bulge Follow Up 2xWeek (3 of 4) Coding Level of Care Code No Charge Diagnoses Bulging lumbar disc M51.26 Segmental and somatic dysfunction of pelvic region M99.05 Segmental and somatic dysfunction of thoracic region M99.02 Segmental and somatic dysfunction of lumbar region M99.03 Additional Codes Procedures - Manipulation: 3-4 regions ([id number]) Procedures - Electronic Stimulation: Yes ([id number]) 04/11/20 1144 <Electronically signed by Batsheva Charles D.C.> Date Batsheva Charles D.C. Cosigner Signature: Date (if applicable) CC: Charo Swenson Start: 03-30-2020 End: 04-05-2020 Chiropractic Report Comments: See Note; NOTES: [facility] [address] [place] [address] OFFICE VISIT Date of Service: 03/30/20 MR#: [id number] Acct: [id number] Name: WEST POSADAS Rep #: [id number] : 1960 Provider: DAVID Jensen Age/Sex: 60/F [place] [facility] Status: Signed Intake Intake Visit Reasons: Back Pain Chief Complaint: Low Back Pain Is patient in pain?: Yes Allergies midazolam [From Versed] Allergy (Verified 03/18/19 12:18) hypotensive codeine Adverse Reaction (Verified 03/18/19 12:18) Vomiting erythromycin base Adverse Reaction (Verified 03/18/19 12:18) Vomiting PFSH Medical History Diarrhea (Acute) Migraines (Acute) HTN (hypertension) (Chronic) Surgical History History of appendectomy (Acute) History of cholecystectomy (Acute) Family History Mother Arthritis Migraine Father CAD (coronary artery disease) Hx of CABG Arthritis Social History (Updated 04/05/20 @ 10:[address] Batsheva hCarles, DAVID) Smoking Status: Never smoker alcohol intake: never HPI Back Pain: Chief Complaint: Low Back Pain Visit Number: 11 Details: WEST POSADAS is a 60 year old F here today for low back pain. She states that her pain has decreased since her last visit. She states that her pain continues to be worse on the left side but when sitting the pain will band across to her right side. She denies any numbness, tingling, or radiculopathy. 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 Pain Quality: aching, dull, cramping Exam Musc General: Yes normal posture, normal gait, joint tenderness (C5,C6,T3,T4,L4,L5,L SI) and decreased ROM Cervical Spine: Yes loss of normal cervical lordosis, Yes cervical muscular tenderness right greater than left lower: trapezius, Yes cervical spasm (trap) right greater than left lower: t rapezius and paracervical muscles, Yes misalignment misalignment: C4, C5, C6 Thoracic/Lumber: Yes thoracic and lumbar spine normal to inspection, Yes paraspinal tenderness on the left greater than right (lumbar with trigger pts), Yes thoraco-lumbar spasm on the left greater than right (lumbar-paraspinal and QL, piriformis), Yes misalignment T3, T4, L3, L4, L5, LIL Sacroiliac joints: on the left (with edema) tender to palpation Office Procedures Chiropractic Treatments Procedures Manipulation: Lumbar L4, Pelvis LIL Manipulation: 1-2 regions Electronic Stimulation: Yes Electrical Stimulation: Lumbar 15 mins (19) mA Therapy Performed by:: Brenda Burleson Patient Response: positive Assessment Plan Problems 1. Bulging lumbar disc M51.26 2. Segmental and somatic dysfunction of pelvic region M99.05 3. Segmental and somatic dysfunction of cervical region M99.01 4. Segmental and somatic dysfunction of thoracic region M99.02 5. Segmental and somatic dysfunction of lumbar region M99.03 Plan Patient is showing slight improvement. Continue care. Orders Orders: Chiropractic Treatments 03/30/20 M51.26, M99.02, M99.03, M99.05 Plan Detail Goals Decrease inflammation and pain Decrease spasm Increase ability to work with less pain Barriers Disc bulge Follow Up 2xWeek (2 of 4) Coding Level of Care Code No Charge Diagnoses Bulging lumbar disc M51.26 Segmental and somatic dysfunction of pelvic region M99.05 Segmental and somatic dysfunction of cervical region M99.01 Segmental and somatic dysfunction of thoracic region M99.02 Segmental and somatic dysfunction of lumbar region M99.03 Additional Codes Procedures - Electronic Stimulation: Yes ([id number]) Procedures - Manipulation: 1-2 regions ([id number]) 04/05/20 1012 <Electronically signed by Batsheva Charles D.C.> Date Batsheva Perdomo Signature: Date (if applicable) CC: Charo Swenson Start: 03-27-2020 End: 03-27-2020 Chiropractic Report Comments: See Note; NOTES: [facility] [address] [place] [address] OFFICE VISIT Date of Service: 03/27/20 MR#: [id number] Acct: [id number] Name: WEST POSADAS Rep #: [id number] : 1960 Provider: DAVID Jensen Age/Sex: 60/F [place] [facility] Status: Signed Intake Intake Visit Reasons: Back Pain Chief Complaint: Low Back Pain Is patient in pain?: Yes Allergies midazolam [From Versed] Allergy (Verified 03/18/19 12:18) hypotensive codeine Adverse Reaction (Verified 03/18/19 12:18) Vomiting erythromycin base Adverse Reaction (Verified 03/18/19 12:18) Vomiting PFSH Medical History Diarrhea (Acute) Migraines (Acute) HTN (hypertension) (Chronic) Surgical History History of appendectomy (Acute) History of cholecystectomy (Acute) Family History Mother Arthritis Migraine Father CAD (coronary artery disease) Hx of CABG Arthritis Social History (Updated 03/27/20 @ 15:[address] Batsheva Charles, DAVID) Smoking Status: Never smoker alcohol intake: never HPI Back Pain: Chief Complaint: Low Back Pain Visit Number: 10 Details: WEST POSADAS is a 60 year old F here today for low back pain. She states that her low back has flared up again. She states that the pain is worse on the left side. She states that it is a sore ache in her low back and left hip with sharp sciatica pain going down her left leg. she states that the pain is worsened by prolonged sitting at work. 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 Pain Quality: aching, dull, cramping, sharp, radiating Exam Musc General: Yes normal posture, normal gait, joint tenderness (C5,C6,T3,T4,L4,L5,L SI) and decreased ROM Cervical Spine: Yes loss of normal cervical lordosis, Yes cervical muscular tenderness right greater than left lower: trapezius, Yes cervical spasm (trap) right greater than left lower: trapezius and paracervical muscles, Yes misalignment misalignment: C4, C5, C6 Thoracic/Lumber: Yes thoracic and lumbar spine normal to inspection, Yes paraspinal tenderness on the left greater than right (lumbar with trigger pts), Yes thoraco-lumbar spasm on the left greater than right (lumbar-paraspinal and QL, piriformis), Yes misalignment T3, T4, L3, L4, L5, LIL Sacroiliac joints: on the left (with edema) tender to palpation Office Procedures Chiropractic Treatments Procedures Manipulation: Cervical C6, Lumbar L4, Thoracic T3, Pelvis LIL Manipulation: 3-4 regions Electronic Stimulation: Yes Electrical Stimulation: Lumbar 15 mins (18) mA Therapy Performed by:: Brenda Burleson Patient Response: positive Assessment Plan Problems 1. Bulging lumbar disc M51.26 2. Segmental and somatic dysfunction of pelvic region M99.05 3. Segmental and somatic dysfunction of thoracic region M99.02 4. Segmental and somatic dysfunction of lumbar region M99.03 Plan Patient was treated without incident. She is having an exacerbation and recommend 2x/wk/2wks. Continue care. Orders Orders: Chiropractic Treatments Today M51.26, M99.01, M99.02, M99.03, M99.05 Plan Detail Goals Decrease inflammation and pain Decrease spasm Increase ability to work with less pain Barriers Disc bulge Follow Up 2x/wk (1 of 4) Coding Level of Care Code No Charge Diagnoses Bulging lumbar disc M51.26 Segmental and somatic dysfunction of pelvic region M99.05 Segmental and somatic dysfunction of thoracic region M99.02 Segmental and somatic dysfunction of lumbar region M99.03 Additional Codes Procedures - Manipulation: 3-4 regions ([id number]) Procedures - Electronic Stimulation: Yes ([id number]) 03/27/20 1559 <Electronically signed by Batsheva Charles D.C.> Date Batsheva Charles D.C. Cosigner Signature: Date (if applicable) CC: Charo Swenson Start: 03-08-2020 End: 03-08-2020 Chiropractic Report Comments: See Note; NOTES: [facility] [address] [place] [address] OFFICE VISIT Date of Service: 03/08/20 MR#: [id number] Acct: [id number] Name: WEST POSADAS Rep #: [id number] : 1960 Provider: DAVID Jensen Age/Sex: 59/F [place] [facility] Status: Signed Intake Intake Visit Reasons: Back Pain Chief Complaint: Neck and low back pain Allergies midazolam [From Versed] Allergy (Verified 03/18/19 12:18) hypotensive codeine Adverse Reaction (Verified 03/18/19 12:18) Vomiting erythromycin base Adverse Reaction (Verified 03/18/19 12:18) Vomiting PFSH Medical History Diarrhea (Acute) Migraines (Acute) HTN (hypertension) (Chronic) Surgical History History of appendectomy (Acute) History of cholecystectomy (Acute) Family History Mother Arthritis Migraine Father CAD (coronary artery disease) Hx of CABG Arthritis Social History (Updated 03/08/20 @ 09:[address] Batsheva Charles, [place]) Smoking Status: Never smoker alcohol intake: never HPI Back Pain: Chief Complaint: Neck and Low Back Pain Visit Number: 8 Details: WEST POSADAS is a 59 year old F here today for neck and left low back pain. She states that her neck pain has decreased since her last adjustment. 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 She states that it is a sore ache that goes into her left leg that causes it to feel heavy and achy. She states that she had her massage her low back and that gave her some relief. She denies any numbness, tingling, or radiculopathy. 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 Pain Quality: aching, dull, cramping, radiating Exam Musc General: Yes normal posture, normal gait, joint tenderness (C5,C6,T3,T4,L4,L5,L SI) and decreased ROM Cervical Spine: Yes loss of normal cervical lordosis, Yes cervical muscular tenderness right greater than left lower: trapezius, Yes cervical spasm (trap) right greater than left lower: trapezius and paracervical muscles, Yes misalignment misalignment: C4, C5, C6 Thoracic/Lumber: Yes thoracic and lumbar spine normal to inspection, Yes paraspinal tenderness on the left greater than right (lumbar with trigger pts), Yes thoraco-lumbar spasm on the left greater than right (lumbar-paraspinal and QL, piriformis), Yes misalignment T3, T4, L3, L4, L5, LIL Sacroiliac joints: on the left (with edema) tender to palpation Office Procedures Chiropractic Treatments Procedures Manipulation: Cervical C5, Lumbar L4, Thoracic T3, Pelvis LIL Manipulation: 3-4 regions Electronic Stimulation: Yes Electrical Stimulation: Lumbar 15 mins (23) mA Therapy Performed by:: Brenda Burleson Patient Response: positive Assessment Plan Problems 1. Bulging lumbar disc M51.26 2. Segmental and somatic dysfunction of pelvic region M99.05 3. Segmental and somatic dysfunction of cervical region M99.01 4. Segmental and somatic dysfunction of thoracic region M99.02 5. Segmental and somatic dysfunction of lumbar region M99.03 Plan Patient was treated without incident. Continue care as needed. Orders Orders: Chiropractic Treatments Today M51.26, M99.01, M99.02, M99.03, M99.05 Plan Detail Goals Decrease inflammation and pain Decrease spasm Increase ability to work with less pain Barriers Disc bulge Follow Up PRN Coding Level of Care Code No Charge Diagnoses Bulging lumbar disc M51.26 Segmental and somatic dysfunction of pelvic region M99.05 Segmental and somatic dysfunction of cervical region M99.01 Segmental and somatic dysfunction of thoracic region M99.02 Segmental and somatic dysfunction of lumbar region M99.03 Additional Codes Procedures - Manipulation: 3-4 regions (73720) Procedures - Electronic Stimulation: Yes ([id number]) 03/08/20 0941 <Electronically signed by Batsheva Charles D.C.> Date Batsheva Charles D.C. Cosigner Signature: Date (if applicable) CC: Charo Swenson Start: 01-26-2020 End: 01-26-2020 Chiropractic Report Comments: See Note; NOTES: [facility] [address] [place] [address] OFFICE VISIT Date of Service: 01/26/20 MR#: [id number] Acct: [id number] Name: WEST POSADAS Rep #: [id number] : 1960 Provider: DAVID Jensen Age/Sex: 59/F [place] [facility] Status: Signed Intake Intake Visit Reasons: Back Pain Chief Complaint: Neck and low back pain Is patient in pain?: Yes Allergies midazolam [From Versed] Allergy (Verified 03/18/19 12:18) hypotensive codeine Adverse Reaction (Verified 03/18/19 12:18) Vomiting erythromycin base Adverse Reaction (Verified 03/18/19 12:18) Vomiting PFSH Medical History Diarrhea (Acute) Migraines (Acute) HTN (hypertension) (Chronic) Surgical History History of appendectomy (Acute) History of cholecystectomy (Acute) Family History Mother Arthritis Migraine Father CAD (coronary artery disease) Hx of CABG Arthritis Social History (Updated 01/26/20 @ 11:[address] Batsheva Charles, DAVID) Smoking Status: Never smoker alcohol intake: never HPI Back Pain: Chief Complaint: Neck and Low Back Pain Visit Number: 7 Details: WEST POSADAS is a 59 year old F here today for neck and low back pain. She states that her neck pain is a stiffness that radiates into her upper back. Her low back is a sore ache that radiates from her left low back and into her left buttock and thigh. 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 Her neck is stiff and sore at times. She has been doing water exercise and swimming which is improving her overall wellness. She denies any numbness or tingling. 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 Pain Quality: aching, dull, cramping, radiating Exam Musc General: Yes normal posture, normal gait, joint tenderness (C5,C6,T3,T4,L4,L5,L SI) and decreased ROM Cervical Spine: Yes loss of normal cervical lordosis, Yes cervical muscular tenderness right greater than left lower: trapezius, Yes cervical spasm (trap) right greater than left lower: trapezius and paracervical muscles, Yes misalignment misalignment: C4, C5, C6 Thoracic/Lumber: Yes thoracic and lumbar spine normal to inspection, Yes paraspinal tenderness on the left greater than right (lumbar with trigger pts), Yes thoraco-lumbar spasm on the left greater than right (lumbar-paraspinal and QL, piriformis), Yes misalignment T3, T4, L3, L4, L5, LIL Sacroiliac joints: on the left (with edema) tender to palpation Office Procedures Chiropractic Treatments Procedures Manipulation: Cervical C6, Lumbar L5, Thoracic T3, Pelvis LIL Manipulation: 3-4 regions Electronic Stimulation: Yes Electrical Stimulation: Cervical (15) 15 mins mA, Lumbar Therapy Performed by:: Brenda Burleson Patient Response: positive Assessment Plan Problems 1. Bulging lumbar disc M51.26 2. Segmental and somatic dysfunction of pelvic region M99.05 3. Segmental and somatic dysfunction of cervical region M99.01 4. Segmental and somatic dysfunction of thoracic region M99.02 5. Segmental and somatic dysfunction of lumbar region M99.03 Plan Patient was treated without incident. Continue care. Orders Orders: Chiropractic Treatments Today M51.26, M99.01, M99.02, M99.03, M99.05 Plan Detail Goals Decrease inflammation and pain Decrease spasm Increase ability to work with less pain Barriers Disc bulge Follow Up PRN Coding Level of Care Code No Charge Diagnoses Bulging lumbar disc M51.26 Segmental and somatic dysfunction of pelvic region M99.05 Segmental and somatic dysfunction of cervical region M99.01 Segmental and somatic dysfunction of thoracic region M99.02 Segmental and somatic dysfunction of lumbar region M99.03 Additional Codes Procedures - Manipulation: 3-4 regions (71133) Procedures - Electronic Stimulation: Yes ([id number]) 01/26/20 1145 <Electronically signed by Batsheva Charles D.C.> Date Batsheva Charles D.C. Cosigner Signature: Date (if applicable) CC: Charo Swenson Start: 12-16-2019 End: 12-16-2019 Chiropractic Report Comments: See Note; NOTES: [facility] [address] [place] [address] OFFICE VISIT Date of Service: 12/16/19 MR#: [id number] Acct: [id number] Name: WEST POSADAS Rep #: [id number] : 1960 Provider: DAVID Jensen Age/Sex: 59/F [place] [facility] Status: Signed Intake Intake Visit Reasons: back pain Chief Complaint: low back pain Is patient in pain?: Yes Allergies midazolam [From Versed] Allergy (Verified 03/18/19 12:18) hypotensive codeine Adverse Reaction (Verified 03/18/19 12:18) Vomiting erythromycin base Adverse Reaction (Verified 03/18/19 12:18) Vomiting [facility] Medical History Diarrhea (Acute) Migraines (Acute) HTN (hypertension) (Chronic) Surgical History History of appendectomy (Acute) History of cholecystectomy (Acute) Family History Mother Arthritis Migraine Father CAD (coronary artery disease) Hx of CABG Arthritis Social History (Updated 12/16/19 @ 14:[address] Batsheva Charles, [place]) Smoking Status: Never smoker alcohol intake: never HPI back pain : Chief Complaint: low back pain Visit Number: 6 Details: WEST POSADAS is a 59 year old F who presents with low back pain. West states that her low back pain has increased, leaving her with a sore and stiff ache banding across the low back. When standing, bending, and walking a long distance the pain does increase. Currently West rates her pain a 4/10, she states that at times it can be sharp shooting although she denies any numbness, tingling, or radiculopathy. Location: low back Duration: intermittent Aggravating or associated factors: bending, lifting, twisting and walking Relieving factors: chiro Pain Quality: aching, dull, cramping, sharp Exam Musc General: Yes normal posture, normal gait, joint tenderness (C5,C6,T3,T4,L4,L5,L SI) and decreased ROM Cervical Spine: Yes loss of normal cervical lordosis, Yes cervical muscular tenderness right greater than left lower: trapezius, Yes cervical spasm right greater than left lower: trapezius and paracervical muscles, Yes misalignment misalignment: C4, C5, C6 Thoracic/Lumber: Yes thoracic and lumbar spine normal to inspection, Yes paraspinal tenderness on the left greater than right (lumbar with trigger pts), Yes thoraco-lumbar spasm on the left greater than right (lumbar-paraspinal and QL, piriformis), Yes misalignment T3, T4, L3, L4, L5, LIL Sacroiliac joints: on the left (with edema) tender to palpation Office Procedures Chiropractic Treatments Procedures Manipulation: Cervical C5, Lumbar L4, Thoracic T3, Pelvis LIL Manipulation: 3-4 regions Electronic Stimulation: Yes Electrical Stimulation: Lumbar 15 mins (22) mA Therapy Performed by:: Sallie Sunshine MA Traction, Mechanical: Yes Patient Response: positive Assessment Plan 1. Segmental and somatic dysfunction of pelvic region M99.05 Orders Orders: Chiropractic Treatments Today 2. Segmental and somatic dysfunction of cervical region M99.01 Orders Orders: Chiropractic Treatments Today 3. Segmental and somatic dysfunction of thoracic region M99.02 Orders Orders: Chiropractic Treatments Today 4. Segmental and somatic dysfunction of lumbar region M99.03 Orders Orders: Chiropractic Treatments Today 5. Bulging lumbar disc M51.26 Orders Orders: Chiropractic Treatments Today Plan Detail Other Orders Orders: Chiropractic Treatments Today M54.16 Additional Comments Patient was treated without incident. Continue care. Goals Decrease inflammation and pain Decrease spasm Increase ability to work with less pain Barriers Disc bulge Follow Up PRN Coding Level of Care Code No Charge Diagnoses Segmental and somatic dysfunction of pelvic region M99.05 Segmental and somatic dysfunction of cervical region M99.01 Segmental and somatic dysfunction of thoracic region M99.02 Segmental and somatic dysfunction of lumbar region M99.03 Bulging lumbar disc M51.26 Additional Codes Procedures - Manipulation: 3-4 regions (04019) Procedures - Electronic Stimulation: Yes (18229) Procedures - Traction, Mechanical: Yes (53172) 12/16/19 3807 <Electronically signed by Batsheva Charles D.C.> Date Batsheva Riosigndallas Signature: Date (if applicable) CC: Charo Swenson Start: 11-15-2019 End: 11-15-2019 PT D/C Summary (1) Comments: See Note; NOTES: [facility] [address] [place] [address] / REHABILITATION SERVICES DISCHARGE SUMMARY MR#: [id number] Acct: [id number] Name: WEST POSADAS Rep #: [id number] : 1960 59 From: Marlene Alonso PT, Cert. MDT Referring Dr.: Dr. Charo Swenson DO Status: REG RCR Insurance: [facility] SELF PAY INSURANCE It has been my pleasure to treat WEST POSADAS referred by Dr. Charo Swenson DO, with the diagnosis of BACK PAIN AND MUSCLE SPASMS for a total of 15 visit(s). Discharge Date: Please see the following information for a summary of their discharge status. Subjective: PATIENT REPORTS SHE IS DOING GOOD. STATES SHE HAS ALREADY GONE TO THE [facility] TO DO HER POOL EX'S TWICE AND IT WENT WELL. PATIENT REPORTS SITTING AT WORK IS STILL A PROBLEM BUT HER TOLERANCE FOR STANDING, WALKING AND HOUSEWORK IS BETTER. 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 HOME STRETCHES REALLY SEAM TO BE KICKING IN - I AM MORE FLEXIBLE NOW. LESS PAIN OVER-ALL. STRONGER - ABLE TO CARRY MORE GROCERIES. EVEN FORGOT TO TAKE MALOXAM FOR 2 DAYS FOR THE FIRST TIME IN 2 YEARS. PATIENT REPORTS HAVING THE HOUR OF THERAPY IN THE POOL VS 1/2 HOUR SEEMED TO REALLY HELP THIS TIME. Lumbar Spine Pain Intensity (Out of 10): 2 L knee Pain Intensity (Out of 10): 3 % Improvement: 75 Objective/Function: PATIENT WAS SEEN TODAY FOR RE-ASSESSMENT OF PROGRESS TOWARD THE SET PT GOALS AND THE NEED FOR FURTHER PHYSICAL THERAPY VS READINESS FOR DISCHARGE. UPON EXAM TODAY ALL GOALS HAVE BEEN MET AND PATIENT IS APPROPRIATE FOR DISCHARGE TO [facility] EX. DISCHARGE INSTRUCTIONS GIVEN. INSTRUCTED IN 4 OPTIONS FOR MINI SQUATS AND APPROPRIATE TECHNIQUE BOTH IN AND OUT OF THE WATER UPON PATIENT QUESTIONING. PATIENT COMMUNICATED A GOOD UNDERSTANDING OF ALL INSTRUCTIONS AFTER GIVEN. Dural Signs: NEGATIVE SUDHA LE'S NOW. Lumbar mvmt loss: flex - MIN TO MOD. ext - MOD. R SG - MOD. L SG - MOD. PATIENT DENIES INCREASED PAIN WITH TESTING TODAY. Goal 1:: DECREASE C/O BACK PAIN Goal Progress: Goal Met Goal 2:: IMPROVE PERSONAL CARE, WALKING, SOCIAL LIFE, TRAVEL, HOMEMAKING, BENDING, LIFTING, TWISTING, SITTING, STANDING, ADL, SLEEP AND WORK FUNCTION Goal Progress: Goal Met Goal 3:: INSTRUCT IN PROPHYLAXIS Goal Progress: Goal Met Plan: D/C TO INDEP EX. PATIENT AGREEABLE. If there are questions or concerns regarding this patient's physical therapy, please feel free to call me at [phone]. Thank you for the referral of this patient. Sincerely, Marlene Alonso PT, Cert MDT <Electronically signed by Cert. SELENA Goode PTT> 11/15/19 4057 CC: Dr. Charo Swenson DO WILLIAM Signed Charo Swenson Start: 09-27-2019 End: 09-28-2019 PT/HP.PTEVAL Comments: See Note; NOTES: [facility] [address] [place] [address]. [address] [place] [address] / REHABILITATION SERVICES INITIAL EVALUATION MR#: [id number] Acct: [id number] Name: WEST POSADAS Rep #: [id number] : 1960 59 From: Cert. SELENA Goode PTT Referring Dr.: Charo Swenson DO Status: REG R CR Insurance: [facility] SELF PAY INSURANCE Patient's Visit Information WEST POSADAS is a 59 year old F referred to Physical Therapy by Charo Swenson DO with a diagnosis of BACK PAIN AND MUSCLE SPASMS. Date of Evaluation: 09/27/19 Physical Therapist: Marlene Alonso PT Cert MDT - Visit Plan Frequency: 2-3x /Week Duration: 4-6 Weeks Plan: AQUATIC THERAPY FOR PAIN RELEIF, POSTURE CORRECTION/STRENGTHENING, INSTRUCTION IN APPROPRIATE BODY MECHANICS AND ACTIVITY MODIFICATIONS. DLS STARTING WITH A NEUTRAL SPINE PROGRESSING ROM TOLERATED. SUDHA LE ROM, STRETCHING AND STRENGTHENING. HEP INSTRUCTION. 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 Present symptoms: LOW BACK PAIN. RADIATES INTO LEFT BUTTOCK AND LEFT THIGH. LEFT THIGH GETS NUMB. Present since: REALLY FLARED UP ABOUT 2 WEEKS AGO. Pain Scale: WORST 6/10, LEAST 2/10. Currently: 310. Commenced as a result of: NO APPARENT REASON OTHER THAN SITTING AT WORK AND TRYING TO EX AT HOME WITH LIGHT WEIGHTS. Symptoms at onset: LEFT LOW BACK. Worse: SITTING, STANDING, BENDING, LIFTING, SLEEPING - WAKES UP EVERY COUPLE HOURS, HOUSEWORK. WORKING 5 DAYS A WEEK CAUSES A LOT OF INCREASED PAIN. Better: LYING ON THE COUCH, MEDROL DOSE TORI. REALLY TAKING THE LOAD OFF LYING DOWN HELPS. SITTING WITH SUPPORT IN LOW BACK. Disturbed sleep: YES. Previous history/Previous treatment: CHIROPRACTOR AND PHYSICAL THERAPY. SEE PT EVAL 2015 FOR FURTHER HISTORY. FLARE UP LAST FALL - LEFT LEG GAVE OUT ON HER AND SHE FELL. PAIN MGMT CONSULT A FEW MONTHS AGO BUT GOT BETTER AND HELD OFF ON INJECTION. Treatment this episode: MEDROL DOSE PACK UNTIL LAST FRIDAY AND REALLY HELPED A LOT. Coughing/sneezing/straining : UNKNOWN. Gait: PATIEN REPORTS FAVORING HER LLE BUT ALSO HAS LEFT KNEE PROBLEMS - "TRICKY KNEE". LEFT LE FEELS HEAVIER THAN RIGHT. Difficulty initiating urinatin: NO. Accidents: FALL APPROX JAN 2019. Unexplained weight loss: NO. Imaging: MRI LUMBAR JUN 2018 - MILD STENOSIS AND MULTI LEVEL BULGING. PMH: HTN. Recent major surgery: UNREMARKABLE. OTHER: HAS FOUND LAND AND WATER EXERCISE HELPFUL IN THE PAST. - Objective Sitting/Standing Posture: POOR. PATIENT IS SITTING AND STANDING IN AN ALMOST HYPER EXTENDED POSITION. RIGID POSTURE. Lordosis: NORMAL TO EXCESSIVE. Lateral shift: NO. Relevant shift: NO. Active Correction of posture: WORSE. Other Observations: INDEP ANTALGIC GAIT INTO PT TODAY WITH DECREASED CADANCE AND MILD LIMP ON LLE. TRUNK IS VERY GUARDED WITH ALL MVMTS. Motor deficit: SUDHA LE'S GROSSLY 5/5 WITH MMT'ING. Sensory deficit: SUDHA LE LIGHT TOUCH SENSATION INTACT AND SYMMETRICAL. ROM deficit: MILD SUDHA LE HIP, HS AND GASTOC SOLEUS TIGHTNESS. Dural Signs: POSITIVE LLE. NEGATIVE RIGHT LE. Lumbar mvmt loss: flex - MOD TO EVE. ext - EVE. R SG - EVE. L SG - EVE. PATIENT WITH C/O INCREASED LOW BACK PAIN WITH LUMBAR ROM TESTING ALL PLANES. NO EFFECT ON LLE TODAY. Core strength: POOR. Palpation: TENDERNESS WITH LIGHT PALPATION OF ENTIRE LUMBAR AND SACRAL REGIONS BUT NOT THORACIC SPINE. TREATMENT: NEUROMUSCULAR REEDUCATION - RETRAINING OF MVMT AND POSTURE FOR SITTING, LYING AND STANDING ACTIVITIES. HEP INSTRUCTION FOR SKTC AND LTR STRETCHING TOLERATED. PATIENT RESPONDED WELL TO THESE STRETCHES IN THE CLINIC TODAY AND IS A GOOD CANDIDATE FOR AQUATIC THERAPY - Goals Goal 1:: DECREASE C/O BACK PAIN Goal Time Frame: 4-6 Weeks Goal 2:: IMPROVE PERSONAL CARE, WALKING, SOCIAL LIFE, TRAVEL, HOMEMAKING, BENDING, LIFTING, TWISTING, SITTING, STANDING, ADL, SLEEP AND WORK FUNCTION Goal Time Frame: 4-6 Weeks Goal 3:: INSTRUCT IN PROPHYLAXIS Goal Time Frame: 4-6 Weeks - Rehabilitation Potential Rehabilitation Potential: Good - Anticipated Interventions Patient/Client Instruction: Educate patient on: Condition, Plan of Care, Risk Factors, Benefits of Fitness Program For the Purpose of:: To improve self management Therapeutic Exercise to Include: Strength training, Endurance training, Body mechanics, Postural training, Flexibilty training, Neuromotor development, "In an aquatic setting", Dynamic Lumbar Stabilization For the Purpose of:: To decrease pain, To increase ROM, To improve muscle performance and motor function, To increase tolerance to activity/condition/position , To improve ability of physical actions for home/community/work/leisure Thank you for the opportunity to evaluate your patient. For Medicare and Medicare HMO plans, please review the plan of care and approve it. It will need to be FAXED BACK to us at [phone] for Medicare purposes. For Medicare only, by signing this I certify the plan of care. Please let me know if there are questions or concerns regarding this plan of care. Physician Signature: Date: <Electronically signed by Marlene Alonso PT, Cert. T> 09/28/19 1320 CC: Charo Swenson DO WILLIAM Signed Charo Swenson Start: 09-27-2019 End: 09-27-2019 Chiropractic Report Comments: See Note; NOTES: [facility] Chiropractic [facility] [place] [address] OFFICE VISIT Date of Service: 09/23/19 MR#: [id number] Acct: [id number] Name: WEST POSADAS Rep #: [id number] : 1960 Provider: Batsheva Charles D.C. Age/Sex: 59/F [place] [facility] Status: Signed Intake Vital Signs09/17/19 BMI 36.6 Intake Visit Reasons: back pain Chief Complaint: low back pain Is patient in pain?: Yes Allergies midazolam [From Versed] Allergy (Verified 03/18/19 12:18) hypotensive codeine Adverse Reaction (Verified 03/18/19 12:18) Vomiting erythromycin base Adverse Reaction (Verified 03/18/19 12:18) Vomiting PFSH Medical History Diarrhea (Acute) Migraines (Acute) HTN (hypertension) (Chronic) Surgical History History of appendectomy (Acute) History of cholecystectomy (Acute) Family History Mother Arthritis Migraine Father CAD (coronary artery disease) Hx of CABG Arthritis Social History (Updated 09/27/19 @ 08:[address] Batsheva Charles, [place]) Smoking Status: Never smoker alcohol intake: never HPI back pain : Chief Complaint: low back pain Visit Number: 5 Details: WEST POSADAS is a 59 year old F who presents with increased low back pain. She states that her pain has increased after working longer hours. The patient states that the pain is sore and stiff, bending, lifting, and walking causes increased pain and tightness. She consulted her medical doctor for meds. Her neck and upper back have been really stiff and achy, at times. West denies any numbness, tingling, or radiculopathy. Location: low back Duration: intermittent Aggravating or associated factors: walking, standing, bending Relieving factors: chiro Pain Quality: aching, dull, cramping, sharp Exam Musc General: Yes normal posture, normal gait, joint tenderness (C5,C6,T3,T4,L4,L5,L SI) and decreased ROM Cervical Spine: Yes loss of normal cervical lordosis, Yes cervical muscular tenderness right greater than left lower: trapezius, Yes cervical spasm right greater than left lower: trapezius and paracervical muscles, Yes misalignment misalignment: C4, C5, C6 Thoracic/Lumber: Yes thoracic and lumbar spine normal to inspection, Yes paraspinal tenderness on the left greater than right (lumbar with trigger pts), Yes thoraco-lumbar spasm on the left greater than right (lumbar-paraspinal and QL), Yes misalignment T3, T4, L3, L4, L5, LIL Sacroiliac joints: on the left (with edema) tender to palpation Office Procedures Chiropractic Treatments Procedures Manipulation: Cervical C5, Lumbar L4, Thoracic T3, Pelvis LIL Manipulation: 3-4 regions Electronic Stimulation: Yes Electrical Stimulation: Lumbar 15 mins (25) mA Therapy Performed by:: Sallie Sunshine MA Patient Response: positive Assessment AND Plan 1. Bulging lumbar disc M51.26 Orders Orders: 2. Segmental and somatic dysfunction of pelvic region M99.05 Orders Orders: 3. Segmental and somatic dysfunction of cervical region M99.01 Orders Orders: 4. Segmental and somatic dysfunction of thoracic region M99.02 Orders Orders: 5. Segmental and somatic dysfunction of lumbar region M99.03 Orders Orders: Plan Detail Other Orders Orders: Additional Comments Patient was treated without incident. Continue care. Goals Decrease inflammation and pain Decrease spasm Increase ability to work with less pain Barriers Disc bulge Follow Up PRN Coding Level of Care Code No Charge Diagnoses Bulging lumbar disc M51.26 Segmental and somatic dysfunction of pelvic region M99.05 Segmental and somatic dysfunction of cervical region M99.01 Segmental and somatic dysfunction of thoracic region M99.02 Segmental and somatic dysfunction of lumbar region M99.03 Additional Codes Procedures - Manipulation: 3-4 regions (61617) Procedures - Electronic Stimulation: Yes (60450) 09/27/19 0847 <Electronically signed by Batsheva Charles D.C.> Date [facility] Signature: Date (if applicable) CC: Charo Swenson Start: 09-23-2019 End: 09-27-2019 MR/BMS.[facility] Comments: See Note; NOTES: [facility] Chiropractic [address] [place] [address] OFFICE VISIT Date of Service: 09/23/19 MR#: [id number] Acct: [id number] Name: WEST POSADAS Rep #: [id number] : 1960 Provider: Jack Wan Age/Sex: 59/F [place] [facility] Status: Signed Intake Vital Signs 09/17/19 BMI 36.6 Intake Visit Reasons: back pain Chief Complaint: low back pain Is patient in pain?: Yes Allergies midazolam [From Versed] Allergy (Verified 03/18/19 12:18) hypotensive codeine Adverse Reaction (Verified 03/18/19 12:18) Vomiting erythromycin base Adverse Reaction (Verified 03/18/19 12:18) Vomiting PFSH Medical History Diarrhea (Acute) Migraines (Acute) HTN (hypertension) (Chronic) Surgical History History of appendectomy (Acute) History of cholecystectomy (Acute) Family History Mother Arthritis Migraine Father CAD (coronary artery disease) Hx of CABG Arthritis Social History (Updated 09/27/19 @ 08:[address] Batsheva Charles, [place]) Smoking Status: Never smoker alcohol intake: never HPI back pain : Chief Complaint: low back pain Visit Number: 5 Details: WEST POSADAS is a 59 year old F who presents with increased low back pain. She states that her pain has increased after working longer hours. The patient states that the pain is sore and stiff, bending, lifting, and walking causes increased pain and tightness. She consulted her medical doctor for meds. Her neck and upper back have been really stiff and achy, at times. West denies any numbness, tingling, or radiculopathy. Location: low back Duration: intermittent Aggravating or associated factors: walking, standing, bending Relieving factors: chiro Pain Quality: aching, dull, cramping, sharp Exam Musc General: Yes normal posture, normal gait, joint tenderness (C5,C6,T3,T4,L4,L5,L SI) and decreased ROM Cervical Spine: Yes loss of normal cervical lordosis, Yes cervical muscular tenderness right greater than left lower: trapezius, Yes cervical spasm right greater than left lower: trapezius and paracervical muscles, Yes misalignment misalignment: C4, C5, C6 Thoracic/Lumber: Yes thoracic and lumbar spine normal to inspection, Yes paraspinal tenderness on the left greater than right (lumbar with trigger pts), Yes thoraco-lumbar spasm on the left greater than right (lumbar-paraspinal and QL), Yes misalignment T3, T4, L3, L4, L5, LIL Sacroiliac joints: on the left (with edema) tender to palpation Office Procedures Chiropractic Treatments Procedures Manipulation: Cervical C5, Lumbar L4, Thoracic T3, Pelvis LIL Manipulation: 3-4 regions Electronic Stimulation: Yes Electrical Stimulation: Lumbar 15 mins (25) mA Therapy Performed by:: Sallie Sunshine MA Patient Response: positive Assessment Plan 1. Bulging lumbar disc M51.26 Orders Orders: Chiropractic Treatments 09/23/19 2. Segmental and somatic dysfunction of pelvic region M99.05 Orders Orders: Chiropractic Treatments 09/23/19 3. Segmental and somatic dysfunction of cervical region M99.01 Orders Orders: Chiropractic Treatments 09/23/19 4. Segmental and somatic dysfunction of thoracic region M99.02 Orders Orders: Chiropractic Treatments 09/23/19 5. Segmental and somatic dysfunction of lumbar region M99.03 Orders Orders: Chiropractic Treatments 09/23/19 Plan Detail Other Orders Orders: Chiropractic Treatments 09/23/19 M54.16 Additional Comments Patient was treated without incident. Continue care. Goals Decrease inflammation and pain Decrease spasm Increase ability to work with less pain Barriers Disc bulge Follow Up PRN Coding Level of Care Code No Charge Diagnoses Bulging lumbar disc M51.26 Segmental and somatic dysfunction of pelvic region M99.05 Segmental and somatic dysfunction of cervical region M99.01 Segmental and somatic dysfunction of thoracic region M99.02 Segmental and somatic dysfunction of lumbar region M99.03 Additional Codes Procedures - Manipulation: 3-4 regions (91521) Procedures - Electronic Stimulation: Yes (92607) 09/27/19 0847 <Electronically signed by Batsheva Charels D.C.> Date Batsheva Charles D.C. Cosigner Signature: Date (if applicable) CC: Charo Swenson Start: 09-09-2019 End: 09-09-2019 Chiropractic Report Comments: See Note; NOTES: [facility] [address] [place] [address] OFFICE VISIT Date of Service: 09/09/19 MR#: [id number] Acct: [id number] Name: WEST POSADAS Rep #: [id number] : 1960 Provider: Batsheva Charles D.C. Age/Sex: 59/F Location[place] [facility] Status: Signed Intake Intake Visit Reasons: back pain Chief Complaint: low back pain Is patient in pain?: Yes Allergies midazolam [From Versed] Allergy (Verified 03/18/19 12:18) hypotensive codeine Adverse Reaction (Verified 03/18/19 12:18) Vomiting erythromycin base Adverse Reaction (Verified 03/18/19 12:18) Vomiting [facility] Medical History Diarrhea (Acute) Migraines (Acute) HTN (hypertension) (Chronic) Surgical History History of appendectomy (Acute) History of cholecystectomy (Acute) Family History Mother Arthritis Migraine Father CAD (coronary artery disease) Hx of CABG Arthritis Social History (Updated 09/09/19 @ 17:[address] Batsheva Charles, DAVID) Smoking Status: Never smoker alcohol intake: never HPI back pain : Chief Complaint: low back pain Visit Number: 4 Details: WEST POSADAS is a 59 year old F who presents with increased low back pain. She states that over the past week her pain has increased leaving her with a deep and sore ache that is constant. Bending, lifting, twisting and walking a long distance causes increased pain and tightness across the low back. At times when sitting the pain can be sharp shooting. Currently West rates her pain a 4/10, she describes it as a week soreness. Her neck and upper back have been very sore and tight as well. The patient denies any numbness, tingling, or radiculopathy. Onset: 09/06/19 Location: low back/neck Duration: constant/intermittent Aggravating or associated factors: walking, standing, bending and lifting Relieving factors: chiro Pain Quality: aching, dull, cramping, sharp Exam Musc General: Yes normal posture, normal gait, joint tenderness (C5,C6,T3,T4,L4,L5,L SI) and decreased ROM Cervical Spine: Yes loss of normal cervical lordosis, Yes cervical muscular tenderness right greater than left lower: trapezius, Yes cervical spasm right greater than left lower: trapezius and paracervical muscles, Yes misalignment misalignment: C4, C5, C6 Thoracic/Lumber: Yes thoracic and lumbar spine normal to inspection, Yes paraspinal tenderness on the left greater than right (lumbar with trigger pts), Yes thoraco-lumbar spasm on the left greater than right (lumbar-paraspinal and QL), Yes misalignment T3, T4, L3, L4, L5, LIL Sacroiliac joints: on the left (with edema) tender to palpation Office Procedures Chiropractic Treatments Procedures Manipulation: Cervical C5, Lumbar L4, Pelvis LIL Manipulation: 3-4 regions Electronic Stimulation: Yes Electrical Stimulation: Lumbar 15 mins (17) mA Therapy Performed by:: Sallie Sunshine MA Patient Response: positive Assessment AND Plan 1. Bulging lumbar disc M51.26 Orders Orders: 2. Segmental and somatic dysfunction of pelvic region M99.05 Orders Orders: 3. Segmental and somatic dysfunction of cervical region M99.01 Orders Orders: 4. Segmental and somatic dysfunction of thoracic region M99.02 Orders Orders: 5. Segmental and somatic dysfunction of lumbar region M99.03 Orders Orders: Plan Detail Other Orders Orders: Additional Comments Patient was treated without incident. Continue care on PRN basis. Goals Decrease inflammation and pain Decrease spasm Increase ability to work with less pain Barriers Disc bulge Follow Up PRN Coding Level of Care Code No Charge Diagnoses Bulging lumbar disc M51.26 Segmental and somatic dysfunction of pelvic region M99.05 Segmental and somatic dysfunction of cervical region M99.01 Segmental and somatic dysfunction of thoracic region M99.02 Segmental and somatic dysfunction of lumbar region M99.03 Additional Codes Procedures - Electronic Stimulation: Yes (68601) Procedures - Manipulation: 3-4 regions (08883) 09/09/19 1727 <Electronically signed by Batsheva Charles D.C.> Date Batsheva Charles D.C. Cosigner Signature: Date (if applicable) CC: Charo Swenson Start: 08-17-2019 End: 08-17-2019 Chiropractic Report Comments: See Note; NOTES: [facility] [address] [place] [address] OFFICE VISIT Date of Service: 08/12/19 MR#: [id number] Acct: [id number] Name: WEST POSADAS Rep #: [id number] : 1960 Provider: Batsheva Charlse D.C. Age/Sex: 59/F [place] [facility] Status: Signed Intake Intake Visit Reasons: back pain Chief Complaint: low back pain Is patient in pain?: Yes Allergies midazolam [From Versed] Allergy (Verified 03/18/19 12:18) hypotensive codeine Adverse Reaction (Verified 03/18/19 12:18) Vomiting erythromycin base Adverse Reaction (Verified 03/18/19 12:18) Vomiting PFSH Medical History Diarrhea (Acute) Migraines (Acute) HTN (hypertension) (Chronic) Surgical History History of appendectomy (Acute) History of cholecystectomy (Acute) Family History Mother Arthritis Migraine Father CAD (coronary artery disease) Hx of CABG Arthritis Social History (Updated 08/17/19 @ 13:[address] Batsheva Charles, [place]) Smoking Status: Never smoker alcohol intake: never HPI back pain : Chief Complaint: low back pain Visit Number: 3 Details: WEST POSADAS is a 59 year old F who presents with low back pain. She states that her pain has decreased, although is still present. Rotation of the back, bending, and lifting causes increased pain and tightness, she not longer is experiencing sharp shooting pains in the low back. West denies any numbness, tingling, or radiculopathy. Location: low back Duration: intermittent Aggravating or associated factors: bending, lifting, and prolonged sitting Relieving factors: chiro Pain Quality: aching, dull, cramping Exam Musc General: Yes normal posture, normal gait, joint tenderness (L4,L5,L SI) and decreased ROM Thoracic/Lumber: Yes thoracic and lumbar spine normal to inspection, Yes paraspinal tenderness on the left greater than right (lumbar with trigger pts(mild)), Yes thoraco-lumbar spasm on the left greater than right (lumbar-paraspinal and QL), Yes misalignment L3, L4, L5, LIL Sacroiliac joints: on the left (with edema) tender to palpation Office Procedures Chiropractic Treatments Procedures Manipulation: Lumbar L4, Pelvis LIL Manipulation: 1-2 regions Patient Response: positive Assessment AND Plan Problems 1. Bulging lumbar disc M51.26 2. Segmental and somatic dysfunction of pelvic region M99.05 3. Segmental and somatic dysfunction of lumbar region M99.03 Plan Patient was treated without incident. Follow up PRN. Orders Orders: Plan Detail Goals Decrease inflammation and pain Decrease spasm Increase ability to work with less pain Barriers Disc bulge Follow Up PRN Coding Level of Care Code No Charge Diagnoses Bulging lumbar disc M51.26 Segmental and somatic dysfunction of pelvic region M99.05 Segmental and somatic dysfunction of lumbar region M99.03 Additional Codes Procedures - Manipulation: 1-2 regions (25397) 08/17/19 1323 <Electronically signed by Batsheva Charles D.C.> Date Batsheva Charles D.C. Cosigner Signature: Date (if applicable) CC: Charo Swenson Start: 07-21-2019 End: 07-21-2019 Chiropractic Report Comments: See Note; NOTES: [facility] [address] [place] [address] OFFICE VISIT Date of Service: 07/21/19 MR#: [id number] Acct: [id number] Name: WEST POSADAS Rep #: [id number] : 1960 Provider: Batsheva Charles D.C. Age/Sex: 59/F [place] [facility] Status: Signed Intake Intake Visit Reasons: back pain Chief Complaint: low back pain Is patient in pain?: Yes Allergies midazolam [From Versed] Allergy (Verified 03/18/19 12:18) hypotensive codeine Adverse Reaction (Verified 03/18/19 12:18) Vomiting erythromycin base Adverse Reaction (Verified 03/18/19 12:18) Vomiting [facility] Medical History Diarrhea (Acute) Migraines (Acute) HTN (hypertension) (Chronic) Surgical History History of appendectomy (Acute) History of cholecystectomy (Acute) Family History Mother Arthritis Migraine Father CAD (coronary artery disease) Hx of CABG Arthritis Social History (Updated 07/21/19 @ 10:42 by Batsheva Charles DC) Smoking Status: Never smoker alcohol intake: never HPI back pain : Chief Complaint: low back pain Visit Number: 2 Details: WEST POSADAS is a 59 year old F who presents with low back pain. She states that her pain increased after working five days in a row leaving her with a deep and sore ache banding across the back(L>R). West states that after stretching her pain did decrease although there is soreness still present. Today West rates her pain a 3/10, she states there is a sore ache banding across the low back with slight weakness. West denies any numbness, tingling, or radiculopathy. Onset: 07/18/19 Location: low back pain Duration: intermittent Aggravating or associated factors: working, prolonged sitting, bending and standing Relieving factors: chiro Pain Quality: aching, dull, cramping, sharp Exam Musc General: Yes normal posture, normal gait, joint tenderness (L4,L5,L SI) and decreased ROM Thoracic/Lumber: Yes thoracic and lumbar spine normal to inspection, Yes paraspinal tenderness on the left greater than right (lumbar with trigger pts), Yes thoraco-lumbar spasm on the left greater than right (lumbar-paraspinal and QL), Yes misalignment L3, L4, L5, LIL Sacroiliac joints: on the left (with edema) tender to palpation Office Procedures Chiropractic Treatments Procedures Manipulation: Lumbar L4, Pelvis LIL Manipulation: 1-2 regions Electronic Stimulation: Yes Electrical Stimulation: Lumbar 15 mins (25) mA Therapy Performed by:: Sallie Sunshine MA Patient Response: positive Assessment AND Plan Problems 1. Segmental and somatic dysfunction of pelvic region M99.05 2. Bulging lumbar disc M51.26 3. Segmental and somatic dysfunction of lumbar region M99.03 Plan Patient was treated without incident. Due to working longer hours, follow up in 3 weeks and monitor patient response. Orders Orders: Plan Detail Goals Decrease inflammation and pain Decrease spasm Increase ability to work with less pain Barriers Disc bulge Follow Up 3 Weeks Coding Level of Care Code No Charge Diagnoses Segmental and somatic dysfunction of pelvic region M99.05 Bulging lumbar disc M51.26 Segmental and somatic dysfunction of lumbar region M99.03 Additional Codes Procedures - Electronic Stimulation: Yes (89012) Procedures - Manipulation: 1-2 regions (21162) 07/21/19 1042 <Electronically signed by Batsheva Charles D.C.> Date Batsheva Charles D.C. Cosigner Signature: Date (if applicable) CC: Charo Swenson Start: 07-07-2019 End: 07-07-2019 Chiropractic Report Comments: See Note; NOTES: [facility] [address] [place] [address] OFFICE VISIT Date of Service: 07/07/19 MR#: [id number] Acct: [id number] Name: WEST POSADAS Rep #: [id number] : 1960 Provider: Batsheva Charles D.C. Age/Sex: 59/F [place] [facility] Status: Signed Intake Intake Visit Reasons: BACK PAIN Chief Complaint: L sided low back pain Is patient in pain?: Yes Allergies midazolam [From Versed] Allergy (Verified 03/18/19 12:18) hypotensive codeine Adverse Reaction (Verified 03/18/19 12:18) Vomiting erythromycin base Adverse Reaction (Verified 03/18/19 12:18) Vomiting [facility] Medical History Diarrhea (Acute) Migraines (Acute) HTN (hypertension) (Chronic) Surgical History History of appendectomy (Acute) History of cholecystectomy (Acute) Family History Mother Arthritis Migraine Father CAD (coronary artery disease) Hx of CABG Arthritis Social History (Updated 07/07/19 @ 10:50 by Batsheva Charles DC) Smoking Status: Never smoker alcohol intake: never HPI BACK PAIN : Chief Complaint: neck and low back pain Visit Number: 2 Details: WEST POSADAS is a 59 year old F who presents with neck and low back pain. West states that her neck pain has increased leaving her with a deep and sore ache banding across the neck and upper back(R>L). 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 West states that her low back pain has greatly decreased, leaving her with only a sore ache at times. The patient states that she still has to be careful with certain movements although she denies any numbness, tingling, or radiculopathy. Location: neck and low back Duration: intermittent Aggravating or associated factors: rotation of the neck, computer work, lifting Relieving factors: chiro Pain Quality: aching, dull, cramping, sharp Exam Musc General: Yes normal posture, normal gait, joint tenderness (C6,C7,T1,T2,T3,L4,L5,L SI) and decreased ROM Cervical Spine: Yes loss of normal cervical lordosis, Yes cervical muscular tenderness right greater than left lower: paracervical muscle and trapezius, Yes cervical spasm right greater than left lower: trapezius, Yes misalignment misalignment: C5, C6, C7 Thoracic/Lumber: Yes thoracic and lumbar spine normal to inspection, Yes paraspinal tenderness on the right in the upper thoracic and in the mid thoracic and on the left greater than right (lumbar with trigger pts), Yes thoraco-lumbar spasm on the right (trap) and on the left greater than right (lumbar-paraspinal and QL), Yes misalignment T1, T2, T3, T4, L3, L4, L5, LIL Sacroiliac joints: on the left (with edema) tender to palpation Office Procedures Chiropractic Treatments Procedures Manipulation: Cervical C5, Lumbar L4, Thoracic T1, T4, Pelvis LIL Manipulation: 3-4 regions Electronic Stimulation: Yes Electrical Stimulation: Cervical 15 mins (21) mA Therapy Performed by:: Sallie Sunshine MA Patient Response: positive Assessment AND Plan 1. Bulging lumbar disc M51.26 Orders Orders: 2. Segmental and somatic dysfunction of pelvic region M99.05 Orders Orders: 3. Segmental and somatic dysfunction of cervical region M99.01 Orders Orders: 4. Segmental and somatic dysfunction of thoracic region M99.02 Orders Orders: 5. Segmental and somatic dysfunction of lumbar region M99.03 Orders Orders: Plan Detail Additional Comments Patient was treated without incident. Continue care. Goals Decrease inflammation and pain Decrease spasm Increase ability to work with less pain Barriers Disc bulge Follow Up PRN Coding Level of Care Code No Charge Diagnoses Bulging lumbar disc M51.26 Segmental and somatic dysfunction of pelvic region M99.05 Segmental and somatic dysfunction of cervical region M99.01 Segmental and somatic dysfunction of thoracic region M99.02 Segmental and somatic dysfunction of lumbar region M99.03 Additional Codes Procedures - Electronic Stimulation: Yes (13389) Procedures - Manipulation: 3-4 regions (24548) 07/07/19 1050 <Electronically signed by Batsheva Charles D.C.> Date Batsheva Charles D.C. Cosigner Signature: Date (if applicable) CC: Charo Swenson Start: 06-16-2019 End: 06-16-2019 Inital Evaluation (1) - PT Comments: See Note; NOTES: [facility] [address] [place] [address] / REHABILITATION SERVICES INITIAL EVALUATION MR#: [id number] Acct: [id number] Name: WEST POSADAS Rep #: [id number] : 1960 59 From: Marlene Alonso PT, Cert. MDT Referring DrPavithra: Batsheva Charles D.C. Status: REG RCR Insurance: [facility] SELF PAY INSURANCE Patient's Visit Information WEST POSADAS is a 59 year old F referred to Physical Therapy by Batsheva Charles DC with a diagnosis of RIGHT SHOULDER PAIN. Date of Evaluation: 06/14/19 Physical Therapist: Marlene Alonso, PT, Cert MDT - Visit Plan Frequency: 2-3x /Week Duration: 4-6 Weeks Plan: RIGHT UE MODALITIES NEEDED. RIGHT UE ROM, STRETCHING AND STRENGTHENING TO HELP MEET SET GOALS. 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 Present symptoms: RIGHT SHOULDER PAIN, RIGHT SHOULDER BLADE PAIN, RIGHT BICEP PAIN. Present since: COUPLE WEEKS. H/O OF MORE MILD PAIN IN SHLD OFF AND ON. Pain Scale: Worst - 6/10 Least - 0/10. Currently: 09/09 WITH MVMT. Commenced as a result of: NO APPARENT REASON OTHER THAN WORK - ON COMPUTER. GETS WORSE HER WORK WEEK PROGRESSES. Symptoms at onset: RIGHT SHOULDER. Worse: TRYING TO RAISE IT ESPECIALLY OUT TO THE SIDE. TRYING TO CARRY THINGS LIKE ICE TEA JUG. WASHING HAIR. 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 Better: RESTING IT AND NOT BEING ON A COMPUTER. NOT STRAINING OR DOING A LOT OF LIFTING. Disturbed sleep: YES - IF ROLLS ON RIGHT SIDE. Previous history/Previous treatment: UNREMARKABLE FOR SHOULDER AND NECK. Dizziness: NO. Tinnitis: CHRONIC. Nausea: NO. Shortness of Breath: NO. Difficulty Swollowing: NO. Gait: NORMAL. Accidents: NO. Unexplained weight loss: NO. Imaging: NO. PMH/Recent major surgery: UNREMARKABLE OTHER THAN HTN AND MOBIC FOR BACK PROBLEMS. - Objective THIS PATIENT AMBULATES INDEP'LY INTO PT WITH NO GROSS DEVIATIONS NOTED. HER SITTING AND STANDING POSTURE ARE POOR. SHE HAS FH AND RS'S. NO TORTICOLLIS. CERVICAL ROM IS WFL AND TESTING DOES NOT PROVOKE RIGHT UE SX'S. LEFT UE ROM AND STRENGTH IS WNL. RIGHT UE STRENGTH IS 5/5 WITH MMT'ING BUT HER RIGHT SHLD FLEX IS APPROX 20% LIMITED IN LYING COMPARED TO LEFT SHOULDER AND SHE HAS PAIN AT THE END OF THE AVAILABLE ROM. SHE IS NOT TENDER OR SWOLLEN IN THE RIGHT RIGHT SHLD OR UPPER ARM REGION. SHE DOES HAVE SUDHA SCAP WEAKNESS GRADED 4/5. SUDHA UE LIGHT TOUCH SENSATION IS INTACT AND SYMMETRICAL AND SUDHA UE DTR'S ARE 2/3. HEP WAS INITIATED WITH SUPINE AND STANDING WAND FLEXION. PATIENT IS A GOOD CANDIDATE FOR PHYSICAL THERAPY WITH POC BELOW. - Goals Goal 1:: DECREASE C/O RIGHT SHOULDER PAIN Goal Time Frame: 4-6 Weeks Goal 2:: IMPROVE LIFTING, REACHING, WORK AND HOMEMAKING FUNCTION Goal Time Frame: 4-6 Weeks Goal 3:: PATIENT WILL BE INDEP WITH A HEP FOR CONTINUED IMRPOVEMENT ONCE FORMAL PHYSICAL THERAPY CONCLUDES. Goal Time Frame: 4-6 Weeks - Rehabilitation Potential Rehabilitation Potential: Good - Anticipated Interventions Patient/Client Instruction: Educate patient on: Condition, Plan of Care, Risk Factors, Benefits of Fitness Program For the Purpose of:: To improve self management Therapeutic Exercise to Include: Strength training, Flexibilty training, Passive ROM, Active ROM, Scapular Strength/Stabilization For the Purpose of:: To decrease pain, To increase ROM, To improve muscle performance and motor function, To increase tolerance to activity/condition/position , To improve ability of physical actions for home/community/work/leisure Manual Therapy Techniques to Include: Mobilization, Passive ROM Comment: RIGHT SHOULDER For the Purpose of:: To increase ROM, To improve nutrient delivery to tissue TENS: Yes Cryotherapy (ice pack, ice massage): Yes Thermo therapy (hot pack): Yes Ultrasound (thermal/non thermal): Yes For the Purpose of:: To decrease pain, To improve nutrient delivery to tissue Thank you for the opportunity to evaluate your patient. For Medicare and Medicare HMO plans, please review the plan of care and approve it. It will need to be FAXED BACK to us at [phone] for Medicare purposes. For Medicare only, by signing this I certify the plan of care. Please let me know if there are questions or concerns regarding this plan of care. Physician Signature: Date: <Electronically signed by Marlene Alonso PT, Cert. MDT> 06/16/19 1717 CC: Charo Swenson DO; Batsheva Charles D.C. WILLIAM Signed Charo Swenson Start: 06-09-2019 End: 06-09-2019 Chiropractic Report Comments: See Note; NOTES: [facility] [address] [phone] OFFICE VISIT Date of Service: 06/09/19 MR#: [id number] Acct: [id number] Name: WEST PSOADAS Rep #: [id number] : 1960 Provider: Batsheva Charles D.C. Age/Sex: 59/F [place] [facility] Status: Signed Intake Intake Visit Reasons: back pain Chief Complaint: L sided low back pain Is patient in pain?: Yes Allergies midazolam [From Versed] Allergy (Verified 03/18/19 12:18) hypotensive codeine Adverse Reaction (Verified 03/18/19 12:18) Vomiting erythromycin base Adverse Reaction (Verified 03/18/19 12:18) Vomiting PFSH Medical History Diarrhea (Acute) Migraines (Acute) HTN (hypertension) (Chronic) Surgical History History of appendectomy (Acute) History of cholecystectomy (Acute) Family History Mother Arthritis Migraine Father CAD (coronary artery disease) Hx of CABG Arthritis Social History (Updated 06/09/19 @ 10:18 by Batsheva Charles DC) Smoking Status: Never smoker alcohol intake: never HPI back pain : Chief Complaint: low back pain Visit Number: 1 Details: WEST POSADAS is a 59 year old F who presents with low back pain. West states that her pain comes and goes, depending on how often she is on her feet. West rates her pain a 2/10 today, she describes it as a deep and sore ache that bands across the low back. The area has been more sore since she has been limping. When sitting for a long period of time, or walking for a long period of time the pain does increase and can become sharp. She also stated that her right shoulder/bicep has been hurting while working on her computer. It started a few months ago and seems to have gotten worse 3 weeks ago. No injury. West denies any numbness, tingling, or radiculopathy. Onset: 05/16/19 Location: low back Duration: intermittent Aggravating or associated factors: bending, lifting, standing, sitting Relieving factors: chiro Pain Quality: aching, dull, cramping Exam Musc General: Yes normal posture, normal gait, joint tenderness (L4,L5,L SI) and decreased ROM Cervical Spine: Yes loss of normal cervical lordosis, Yes cervical muscular tenderness right greater than left lower: paracervical muscle and trapezius, Yes cervical spasm right greater than left lower: trapezius, Yes misalignment misalignment: C5, C6, C7 Thoracic/Lumber: Yes thoracic and lumbar spine normal to inspection, Yes paraspinal tenderness (slightly improved) on the right in the upper thoracic and on the left greater than right (lumbar with trigger pts), Yes thoraco-lumbar spasm (slightly improved) on the right (trap) and on the left greater than right (lumbar-paraspinal and QL), Yes misalignment L3, L4, L5, LIL Sacroiliac joints: on the left (with edema) tender to palpation Neuro General: alert, awake, oriented x3, normal light touch, pain and propioception, focal motor deficits present (decreased strength in R deltoid and bicep) Right Shoulder Date of injury: 03/09/19 Contralateral Normal: Yes Testing: Positive TTP Biceps, AROM-Forward Elevation 0-180 (90 pain), AROM-External Rotation at 90 0-60 (55 w pain), AROM-External Rotation at side 0-60 (55), PROM-External Rotation at side 0-60 (60), PROM-External Rotation at 90 0-60 (60) and PROM-Forward Elevation 0-180 (180); negative Drop Arm, Apprehension Test or empty can Internal Rotation: T12 Office Procedures Chiropractic Treatments Procedures Manipulation: Lumbar L4, L5, Sacrum (L SI ) Manipulation: 1-2 regions Electrical Stimulation: Lumbar 15 mins (25) mA Therapy Performed by:: Sallie Sunshine MA Patient Response: positive Assessment AND Plan 1. Segmental and somatic dysfunction of pelvic region M99.05 Orders Orders: 2. Segmental and somatic dysfunction of cervical region M99.01 Orders Orders: 3. Segmental and somatic dysfunction of thoracic region M99.02 Orders Orders: 4. Segmental and somatic dysfunction of lumbar region M99.03 Orders Orders: 5. Radiculopathy of lumbar region M54.16 Orders Orders: 6. Impingement syndrome of right shoulder M75.41 Plan Detail Additional Comments Patient is showing improvement in her low back is attempting to RTW for 5 days next week. Evaluated her right shoulder which is exhibiting signs of impingement, provided referral for PT and HEP at treat. Follow up at completion of PT for shoulder. Goals Decrease inflammation and pain Decrease spasm Increase ability to work with less pain Barriers Disc bulge Follow Up 1 Month Coding Level of Care Code Off vis,est,level 1 Diagnoses Segmental and somatic dysfunction of pelvic region M99.05 Segmental and somatic dysfunction of cervical region M99.01 Segmental and somatic dysfunction of thoracic region M99.02 Segmental and somatic dysfunction of lumbar region M99.03 Radiculopathy of lumbar region M54.16 Impingement syndrome of right shoulder M75.41 Laterality: right Additional Codes Procedures - Manipulation: 1-2 regions (85926) 06/09/19 1018 <Electronically signed by Batsheva Charles D.C.> Date Batsheva Charles D.C. Cosigndallas Signature: Date (if applicable) CC: Charo Swenson Start: 05-20-2019 End: 05-20-2019 PT D/C Summary (1) Comments: See Note; NOTES: [facility] [address] [place] [address] / REHABILITATION SERVICES DISCHARGE SUMMARY MR#: [id number] Acct: [id number] Name: WEST POSADAS Rep #: [id number] : 1960 59 From: Lino Littlejohn PT, Cert. MDT, OCS Referring Dr.: ROMEO Ko Status: REG RCR Insurance: [facility] [employer] SELF PAY INSURANCE HP - PT D/C Summary It has been my pleasure to treat WEST POSADAS under orders from Nora Ko, KISHORE-C, for the diagnosis of LOW BACK PACK for a total of 20 visit(s). Discharge Date: 05/20/19 Please see the following information for a summary of their discharge status. - Subjective Subjective: Doing good. Work can cause back pain soreness. Able to do all ADLS. - Pain Left Back Pain Intensity (Out of 10): 0 - Overall Improvement % Improvement: 90 - Objective Objective/Function: POSTURE: mild foward posture. GAIT: RECIPROCAL PATTERN. MMT: QUADS/HAMS/HIP/ANKLE 4/5. LUMBAR ROM: FLEXION MIN/MOD LOSS ,EXTENSION MIN LOSS,SIDE GLIDES MIN LOSS - Goals Goal 1:: Patient to be Independant with HEP. Goal Progress: Goal Met Goal 2:: Patient to be Independant with posture/body mechanics Goal Progress: Goal Met Goal 3:: Patient to decrease lumbar pain and radicular symptoms by 50% > to improve function. Goal Progress: Goal Met Goal 4:: Patient to improve lumbar ROM for function of recovery Goal Progress: Goal Met Goal 5:: Patient to increase strength left leg by 4/5 to improve gait Goal Progress: Goal Met Goal 6:: Patient to imporove Back owestry score by 5-8 points > to improve QOL. Goal Progress: Goal Met - Plan Plan: D/C HEP - D/C Information Discharge Comments: HEP If there are questions or concerns regarding this patient's physical therapy, please feel free to call me at [phone]. Thank you for the referral of this patient. Sincerely, Lino Littlejohn PT, Cert MDT, OCS <Electronically signed by Prosper Moreau PT. T, OCS> 05/20/19 2854 CC: ROMEO Ko; Charo Swenson DO ELENA Signed Charo Swenson Start: 05-20-2019 End: 05-20-2019 Chiropractic Report Comments: See Note; NOTES: [facility] [address] [place] [address] OFFICE VISIT Date of Service: 05/20/19 MR#: [id number] Acct: [id number] Name: WEST POSADAS Rep #: [id number] : 1960 Provider: Batsheva Charles D.C. Age/Sex: 59/F [place] [facility] Status: Signed Intake Intake Visit Reasons: back pain Chief Complaint: L sided low back pain Is patient in pain?: Yes Allergies midazolam [From Versed] Allergy (Verified 03/18/19 12:18) hypotensive codeine Adverse Reaction (Verified 03/18/19 12:18) Vomiting erythromycin base Adverse Reaction (Verified 03/18/19 12:18) Vomiting PFSH Medical History Diarrhea (Acute) Migraines (Acute) HTN (hypertension) (Chronic) Surgical History History of appendectomy (Acute) History of cholecystectomy (Acute) Family History Mother Arthritis Migraine Father CAD (coronary artery disease) Hx of CABG Arthritis Social History (Updated 05/20/19 @ 11:39 by Batsheva Charles DC) Smoking Status: Never smoker alcohol intake: never HPI back pain : Chief Complaint: low back pain Visit Number: 22 Details: WEST POSADAS is a 59 year old F who presents with improving low back pain. She states that her pain has continued to be decreased, leaving her with a sore ache at times after working a three day stretch. Today West rates her pain a 2/10, she states that she did get released from PT today. Sitting for a long period of time, walking a long distance, and bending can still cause increased pain and tightness across the low back. West denies any numbness, tingling, or radiculopathy. Location: low back Duration: intermittent Aggravating or associated factors: prolonged sitting, bending, lifting Relieving factors: chiro Pain Quality: aching, dull, cramping Exam Musc General: Yes normal posture, normal gait, joint tenderness (L4,L5,L SI) and decreased ROM Thoracic/Lumber: Yes thoracic and lumbar spine normal to inspection, Yes paraspinal tenderness (slightly improved) on the left greater than right (lumbar with trigger pts), Yes thoraco-lumbar spasm on the left greater than right (lumbar-paraspinal and QL), Yes misalignment L3, L4, L5, LIL Sacroiliac joints: on the left (with edema) tender to palpation Office Procedures Chiropractic Treatments Procedures Manipulation: Lumbar L4, Pelvis LIL Manipulation: 1-2 regions Electronic Stimulation: Yes Electrical Stimulation: Lumbar 15 mins (23) mA Therapy Performed by:: Sallie Sunshine MA Patient Response: positive Assessment AND Plan 1. Segmental and somatic dysfunction of pelvic region M99.05 Orders Orders: 2. Segmental and somatic dysfunction of lumbar region M99.03 Orders Orders: 3. Bulging lumbar disc M51.26 Plan Detail Other Orders Orders: Additional Comments Patient was treated without incident. She will be transitioning to a HEP from PT. Recommend continued care at 2x/mo. Goals Decrease inflammation and pain Decrease spasm Decrease left leg weakness Increase ability to work with less pain Barriers Disc bulge Follow Up 2x/mo Coding Level of Care Code No Charge Diagnoses Segmental and somatic dysfunction of pelvic region M99.05 Segmental and somatic dysfunction of lumbar region M99.03 Bulging lumbar disc M51.26 Additional Codes Procedures - Manipulation: 1-2 regions (70440) Procedures - Electronic Stimulation: Yes (76960) 05/20/19 1139 <Electronically signed by Batsheva Charles D.C.> Date Batsheva Charles D.C. Cosigner Signature: Date (if applicable) CC: Charo Swenson Start: 05-10-2019 End: 05-10-2019 Chiropractic Report Comments: See Note; NOTES: [facility] [address] [place], [place] [id number] OFFICE VISIT Date of Service: 05/10/19 MR#: [id number] Acct: [id number] Name: WEST POSADAS Rep #: [id number] : 1960 Provider: Batsheva Charles D.C. Age/Sex: 59/F Location[place] [facility] Status: Signed Intake Intake Visit Reasons: back pain Chief Complaint: L sided low back pain Is patient in pain?: Yes Allergies midazolam [From Versed] Allergy (Verified 03/18/19 12:18) hypotensive codeine Adverse Reaction (Verified 03/18/19 12:18) Vomiting erythromycin base Adverse Reaction (Verified 03/18/19 12:18) Vomiting PFSH Medical History Diarrhea (Acute) Migraines (Acute) HTN (hypertension) (Chronic) Surgical History History of appendectomy (Acute) History of cholecystectomy (Acute) Family History Mother Arthritis Migraine Father CAD (coronary artery disease) Hx of CABG Arthritis Social History (Updated 05/10/19 @ 15:05 by Batsheva Charles DC) Smoking Status: Never smoker alcohol intake: never HPI back pain : Chief Complaint: low back pain Visit Number: 21 Details: WEST POSADAS is a 59 year old F who presents with increased low back pain. West states that her low back pain has increased due to her coughing causing increased pain and tightness. Today West rates her pain a 4/10, she describes it as a deep and sore ache banding across the low back. Standing and walking causes increased pain and tightness across the low back. West denies any numbness, tingling, or radiculopathy. Location: low back Duration: constant Aggravating or associated factors: standing, walking and bending Relieving factors: chiro Pain Quality: aching, dull, cramping Exam Musc General: Yes normal posture, normal gait, joint tenderness (L4,L5,L SI) and decreased ROM Thoracic/Lumber: Yes thoracic and lumbar spine normal to inspection, Yes paraspinal tenderness on the left greater than right (lumbar with trigger pts), Yes thoraco-lumbar spasm on the left greater than right (lumbar-paraspinal and QL), Yes misalignment L3, L4, L5, LIL Sacroiliac joints: on the left (with edema) tender to palpation Office Procedures Chiropractic Treatments Procedures Manipulation: Lumbar L4, Pelvis LIL Manipulation: 1-2 regions Electronic Stimulation: Yes Electrical Stimulation: Lumbar 15 mins (32) mA Therapy Performed by:: Sallie Sunshine MA Patient Response: positive Assessment AND Plan 1. Segmental and somatic dysfunction of lumbar region M99.03 Orders Orders: 2. Bulging lumbar disc M51.26 Orders Orders: 3. Segmental and somatic dysfunction of pelvic region M99.05 Orders Orders: Plan Detail Other Orders Orders: Additional Comments Patient was treated without incident. Continue care. Goals Decrease inflammation and pain Decrease spasm Decrease left leg weakness Increase ability to work with less pain Barriers Disc bulge Follow Up 1 Week Coding Level of Care Code No Charge Diagnoses Segmental and somatic dysfunction of lumbar region M99.03 Bulging lumbar disc M51.26 Segmental and somatic dysfunction of pelvic region M99.05 Additional Codes Procedures - Electronic Stimulation: Yes (22017) Procedures - Manipulation: 1-2 regions (33640) 05/10/19 1505 <Electronically signed by Batsheva Charles D.C.> Date Batsheva Perdomo Signature: Date (if applicable) CC: Charo Swenson Start: 04-21-2019 End: 04-21-2019 Chiropractic Report Comments: See Note; NOTES: [facility] [address] [place] [address] OFFICE VISIT Date of Service: 04/21/19 MR#: [id number] Acct: [id number] Name: WEST POSADAS Rep #: [id number] : 1960 Provider: Batsheva Charles D.C. Age/Sex: 59/F Location[place] [facility] Status: Signed Intake Intake Visit Reasons: back pain Chief Complaint: L sided low back pain Is patient in pain?: Yes Allergies midazolam [From Versed] Allergy (Verified 03/18/19 12:18) hypotensive codeine Adverse Reaction (Verified 03/18/19 12:18) Vomiting erythromycin base Adverse Reaction (Verified 03/18/19 12:18) Vomiting PFSH Medical History Diarrhea (Acute) Migraines (Acute) HTN (hypertension) (Chronic) Surgical History History of appendectomy (Acute) History of cholecystectomy (Acute) Family History Mother Arthritis Migraine Father CAD (coronary artery disease) Hx of CABG Arthritis Social History (Updated 04/21/19 @ 09:53 by Batsheva Charles DC) Smoking Status: Never smoker alcohol intake: never HPI back pain : Chief Complaint: L sided low back pain Visit Number: 20 Details: WEST POSADAS is a 59 year old F who presents with L sided low back pain. West states that her pain has greatly decreased, leaving her with a sore ache at times banding across the L low back. West states that physical therapy has no longer caused her pain to increase. Currently the patient states that working non consecutive days in a row causes her pain to be more manageable. West denies any numbness, tingling, or radiculopathy. Her neck and upper back are sore and tight. She stated that lately its been hurting her a bit. No new injury. Location: L low back pain/neck Duration: intermittent Aggravating or associated factors: prolonged sitting, bending and walking Relieving factors: chiro Pain Quality: aching, dull, cramping Exam Musc General: Yes normal posture, normal gait, joint tenderness (C5,C6,T3,T4,L4,L5,L SI) and decreased ROM Cervical Spine: Yes loss of normal cervical lordosis, Yes cervical muscular tenderness bilateral lower: paracervical muscle and trapezius, Yes cervical spasm bilateral lateral: trapezius and paracervical muscles, Yes misalignment misalignment: C5, C6 Thoracic/Lumber: Yes thoracic and lumbar spine normal to inspection, Yes paraspinal tenderness (slightly improved) bilaterally in the upper thoracic and in the mid thoracic and on the left greater than right (lumbar), Yes thoraco-lumbar spasm (slightly improved) bilaterally in the upper thoracic and in the mid thoracic and on the left greater than right (lumbar), Yes misalignment T3, T4, L3, L4, L5, LIL Sacroiliac joints: on the left (with edema) tender to palpation Office Procedures Chiropractic Treatments Procedures Manipulation: Cervical C5, Lumbar L3, Thoracic T3, Pelvis LIL Manipulation: 3-4 regions Electrical Stimulation: Lumbar 15 mins (28) mA Therapy Performed by:: Sallie Sunshine MA Patient Response: positive Assessment AND Plan 1. Segmental and somatic dysfunction of cervical region M99.01 Orders Orders: 2. Segmental and somatic dysfunction of thoracic region M99.02 Orders Orders: 3. Segmental and somatic dysfunction of lumbar region M99.03 Orders Orders: 4. Bulging lumbar disc M51.26 Orders Orders: 5. Segmental and somatic dysfunction of pelvic region M99.05 Orders Orders: Plan Detail Other Orders Orders: Additional Comments Patient was treated and felt relief upon departure. She is doing well with PT in gaining strength and endurance. Continue care. Goals Decrease inflammation and pain Decrease spasm Decrease left leg weakness Increase ability to work with less pain Barriers Disc bulge Follow Up 2 wks Coding Level of Care Code No Charge Diagnoses Segmental and somatic dysfunction of cervical region M99.01 Segmental and somatic dysfunction of thoracic region M99.02 Segmental and somatic dysfunction of lumbar region M99.03 Bulging lumbar disc M51.26 Segmental and somatic dysfunction of pelvic region M99.05 Additional Codes Procedures - Manipulation: 3-4 regions (11211) 04/21/19 0953 <Electronically signed by Batsheva Charles D.C.> Date Batsheva Riosigner Signature: Date (if applicable) CC: Charo Swenson Start: 03-04-2019 End: 03-05-2019 SCREEN MAMM (CAD) W/WENCESLAO BILAT Comments: See Note; NOTES: [facility] [address] [place] [address] SCREEN MAMM (CAD) W/WENCESLAO BILAT MR#: [id number] Acct: [id number] Name: WEST POSADAS Rep #: [id number] : 1960 F 58 From: Vadim Wei MD PCP: Nora Ko, MANAGER STORY-C Status: REG CLI Study: SCREEN MAMM (CAD) W/WENCESLAO BILAT Date of Exam: 03/04/19 Exam# [id number] Ordering Dr: Maryana Santamaria MD MAMMOGRAPHY - BILATERAL SCREENING REASON FOR EXAM: Female, 58 years old. Routine annual screening examination. PERTINENT HISTORY: Non-contributory. TECHNIQUE: Digital bilateral breast wenceslao (3D mammographic acquisition) in the CC and MLO projections. 2-D mediolateral oblique (MLO) and craniocaudad (CC) views of both breasts were obtained. CAD: Full Field Digital Mammography with Computer Added Detection was performed. COMPARISON: Comparison is made with prior study dated September 20, 2016 and September 07, 2014. FINDINGS: Breast Composition: The breasts are heterogeneously dense, which may obscure small masses. There are no dominant masses or suspicious calcifications. Stable small bilateral axillary lymph nodes. No other significant abnormalities are identified. There has been no significant change since the prior study. BI/SCREEN MAMM (CAD) W/WENCESLAO BILAT IMPRESSION: Stable bilateral screening mammogram. Yearly follow-up mammogram recommended. (A) ASSESSMENT CATEGORY: BIRADS Category 2: Benign. A letter regarding these results will be sent to the patient by the facility within 30 days. Approximately 10% of breast cancers are not detected by mammography. A normal mammogram should not delay biopsy of a clinically suspicious abnormality. [id number] Electronically Signed: Vadim Wei, at 8:52 EDT , Service support , CC: ROMEO Ko; Maryana Santamaria MD Business Intelligence Analyst: Signed Maryana Santamaria Work Phone: Start: 03-04-2019 End: 03-04-2019 Inital Evaluation (1) - PT Comments: See Note; NOTES: [facility] [address] [place] [address] / REHABILITATION SERVICES INITIAL EVALUATION MR#: [id number] Acct: [id number] Name: WEST POSADAS Rep #: [id number] : 1960 58 From: Lino Littlejohn PT, Cert. T, OCS Referring Dr.: ROMEO Ko Status: REG RCR Insurance: [facility] [employer] SELF PAY INSURANCE Patient's Visit Information WEST POSADAS is a 58 year old F referred to Physical Therapy by ROMEO Grissom with a diagnosis of LOW BACK PACK. Date of Evaluation: 02/24/19 Physical Therapist: Lino Littlejohn, PT, Cert MDT, OCS - Visit Plan Frequency: 2x /Week Duration: 4 Weeks Plan: PT INTERVETIONS ROBBY EX'S,PROGRESS TO DLS ,POSTURAL EX'S WHEN APPROPRIATE. MODALTIES,MANUAL THERAPY - Subjective Findings: This 58 y/o female presents to physical therapy with LBP . Patient has had lumbar pain last fall ,seen DR Charles which helped. Patient had fall in bathroom landed on knee due to buckled. Patient sees DR Hoff for knee. Patient pain in left lower back region radiates below knee lateral . Aggraveting sitting,bending,lifting affects function job demands and housework . Alleviating short walks /standing. Patient c/o pain ache and weakness left leg. Coughing/sneezing-. Bowel/bladder-. Patient has had prior PT last year and MRI showed prutrusion left disc.Patient pain affects daily function and job demnads and housework tasks. Patient pain affects QOL. No prior trauma otherthan recent fall.See MANAGER STORY mobic,predisone pack. SOCIAL: . VOCATION: [employer] - Pain Left Back Pain Intensity (Out of 10): 5 Pain Intensity Range: 10 - Objective POSTURE: mild foward posture. GAIT: normal jony slow jony antalgic gait. PALAPTION: TENDER LS. SYMMTRIES:align. NEURO: denies parathesia/tingling,reflexe s L3-4,L4-5,L5-S1,mytome weakness left leg. MMT: quads L 4-/5,R 4/5,hip flexion L 3+/5, R 4-/5,ANKLE 4/5 HAMS 4/5. LUMBAR ROM: flexion mod/severe ,extension min/mod loss,side glides min lss. FLEXABLITY: hams mod left + slr - Special Tests L/S Slump test left side: Positive L/S Left Straight Leg Raise: Negative L/S Right Straight Leg Raise: Positive - Goals Goal 1:: Patient to be Independant with HEP. Goal Time Frame: 4-6 Weeks Goal 2:: Patient to be Independant with posture/body mechanics Goal Time Frame: 4-6 Weeks Goal 3:: Patient to decrease lumbar pain and radicular symptoms by 50% > to improve function. Goal Time Frame: 2-4 Weeks Goal 4:: Patient to improve lumbar ROM for function of recovery Goal Time Frame: 4-6 Weeks Goal 5:: Patient to increase strength left leg by 4/5 to improve gait Goal Time Frame: 4-6 Weeks Goal 6:: Patient to imporove Back owestry score by 5-8 points > to improve QOL. Goal Time Frame: 4-6 Weeks - Rehabilitation Potential Physical Therapy Diagnosis: This 58 y/o female presents to physical therapt with lumbar derrangement below knee with h/o protrusion with pain with flexion ,decreased with extension ,unable function of recovery ,affects job demnads /ADL'S. Rehabilitation Potential: Good - Anticipated Interventions Patient/Client Instruction: Educate patient on: Condition, Plan of Care For the Purpose of:: To decrease pain, To increase ROM, To improve muscle performance and motor function, To increase tolerance to activity/condition/position , To improve ability of physical actions for home/community/work/leisure , To improve health of tissue, To decrease soft tissue restriction, To increase flexibility/ROM, To improve ability to perform tasks related to life management Therapeutic Exercise to Include: Strength training, Postural training, Flexibilty training, Dynamic Lumbar Stabilization, Robby Exercises For the Purpose of:: To decrease pain, To increase ROM, To improve muscle performance and motor function, To increase tolerance to activity/condition/position , To improve ability of physical actions for home/community/work/leisure , To improve health of tissue, To decrease soft tissue restriction, To increase flexibility/ROM, To reduce risk of recurrence, To improve ability to perform tasks related to life management Manual Therapy Techniques to Include: Mobilization Comment: LUMBAR For the Purpose of:: To decrease pain, To increase ROM, To improve nutrient delivery to tissue, To increase oxygenation perfusion, To improve health of tissue, To decrease soft tissue restriction TENS: Yes IF ES: Yes Cryotherapy (ice pack, ice massage): Yes Thermo therapy (hot pack): Yes Ultrasound (thermal/non thermal): Yes For the Purpose of:: To decrease pain, To increase ROM, To improve nutrient delivery to tissue, To increase oxygenation perfusion, To improve health of tissue, To decrease soft tissue restriction Thank you for the opportunity to evaluate your patient. For Medicare and Medicare HMO plans, please review the plan of care and approve it. It will need to be FAXED BACK to us at [phone] for Medicare purposes. For Medicare only, by signing this I certify the plan of care. Please let me know if there are questions or concerns regarding this plan of care. Physician Signature: Date: <Electronically signed by Lino Littlejohn PT, Cert. KEN, KACEY> 03/04/19 1058 CC: ROMEO Ko; Charo Swenson DO ELENA Signed Charo Swenson Start: 02-25-2019 End: 02-28-2019 Emergency Department Summary Comments: See Note; NOTES: [facility] Medical Records Department [address] [place] [address] Emergency Department Summary 02/25/19 1852 MR#: [id number] Acct: [id number] Name: WEST POSADAS Rep #: [id number] : 1960 58 From: Tammy Huerta DO PCP: Charo Swenson DO Status: REG ER - ER Visit Summary Date of Service: 02/25/19 Chief Complaint: [Chest pain] History of Present Illness: The patient is a 58 F [the emergency department complaint chest pain that started half an hour ago. Patient describes a pressure that is retrosternal and radiates into her left jaw. Patient denies any nausea or vomiting with it. She denies any diaphoresis. She is never had discomfort like this before. She rates it a 5 out of 10. Patient incidentally gives me a history that she took too much prednisone accidentally yesterday took 310 mg tablets 3 times for total 90 mg yesterday and she also took 30 mg today earlier this morning. She is unsure if this has anything to do with it. Patient states that she feels somewhat jittery and shaky. She has no history of anxiety or panic attacks. She has a history of hypertension. No significant family history of heart disease. She denies recent travel or surgery. Patient patient has had prior cholecystectomy and appendectomy.] Physical Examination: [HEENT-PERRLA, EOMI. Cranial nerves II through XII grossly intact. TMs clear. Mucous membranes moist. No adenopathy. Cardiovascular-regular rate and rhythm without murmur or ectopy Lungs-clear to auscultation, chest wall stable without crepitus or subcu emphysema Abdomen-normoactive bowel sounds, soft, nontender, no rebound or rigidity, no peritoneal signs. Extremities-intact 4, normal range of motion, normal pulses, atraumatic] Test Results: [EKG obtained arrival showed a sinus rhythm with a ventricular rate of 79 bpm with old inferior infarct noted. CBC with differential showed a white blood cell count of 14.5, hemoglobin 15, hematocrit 44, platelets 408. Chemistries unremarkable. Troponin is less than 0.015. Chest x-ray was unremarkable.] Emergency Department Course and Treatment: [She received aspirin in the emergency department. Patient was given 1 sublingual nitro every 5 minutes x3 which centrally resolved her pain. Patient had an inch of Nitropaste placed to the anterior chest wall.] Treatment Plan: [Admit ] Disposition: [Admit] Impression: Rest pain-rule out acute Robins syndrome] This note was generated with [employer] software. It may contain incorrect words, spelling, and punctuation that were not noted in review of the chart prior to signing ED Disposition - Plan for ED Patient: Referrals: Charo Swenson DO [Primary Care Provider] - What to do if you have Problems For any increased pain, shortness of breath, bleeding, nausea or vomiting, chest pain, or any unexpected problems, contact your Primary Care Provider. Call [facility] ([phone]) or report to the closest Emergency Room. Call 911 if necessary. 02/25/19 1854 <Electronically signed by Tammy Huerta DO> Date Tammy Huerta DO Cosigner Signature (If Indicated): Date CC: Charo Contreras Start: 02-25-2019 End: 02-28-2019 History and Physical Exam Comments: See Note; NOTES: [facility] Medical Records Department [address] [place] [address] History and Physical 02/25/19 1826 MR#: [id number] Acct: [id number] Name: WEST POSADAS Rep #: [id number] : 1960 58 From: Dee Dee Alonso MD PCP: Charo Swenson DO Status: REG ER Y Location: ED History of Present Illness Date of Admission: 02/25/19 Chief Complaint: Chest pain The patient is a 58 year old F with a past medical history of chronic back pain due to bulging disks and hypertension. She was admitted through the ED on 02/25/2019 with complaint of chest pain which is started a few hours prior to admission. Chest pain was pressure-like and radiated up the left side of her neck and she rated it at about 5 out of 10. Chest pain was relieved by nitro when she came into the ED. patient states she accidentally took more of her prednisone today than she was supposed to take and so she thought the symptoms were related to that the chest pain persisted and started radiating up the side of her neck so she decided to come to the ED to be checked out. She denied any lightheadedness or dizziness, palpitations, shortness of breath, diarrhea vomiting. She is never has had chest pain in the past. She has no known history of coronary artery disease. Review of systems otherwise negative. In the ED vitals were significant for blood pressure which was elevated at 176/95. Potassium was 3.5 per chemistry and initial troponin was less than 0.015. CBC showed white cell count of 14.5 which could be explained by the fact that she had been on prednisone for back pain recently. 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 Initial troponin was negative. She has been admitted to be managed for chest pain to rule out ACS. [] Past Medical History Medical History: Medical History (Last Reviewed 02/24/19 @ 08:59 by Sallie Sunshine) Diarrhea R19.7 Migraines G43.909 HTN (hypertension) I10 Allergies midazolam [From Versed] Allergy (Verified 02/25/19 17:13) Other codeine Adverse Reaction (Verified 02/25/19 17:13) Vomiting erythromycin base Adverse Reaction (Verified 02/25/19 17:13) Vomiting Home Medications: Ambulatory Orders Medication Instructions Recorded Diltiazem CD [Cardizem CD] 120 mg PO DAILY 02/25/19 Hydrochlorothiazide [Hctz] 25 mg PO DAILY 02/25/19 Prednisone 10 mg PO DAILY 02/25/19 Surgical History: Surgical History (Last Reviewed 02/24/19 @ 08:59 by Sallie Sunshine) History of appendectomy Z90.49 History of cholecystectomy Z90.49 Surgical History: appendectomy, cholecystectomy, - Psychiatric History: No pertinent psych hx SUPERINTENDENT INSTITUTION History: No pertinent SUPERINTENDENT INSTITUTION history Lives: Spouse/ Significant Other Smoking Status: Never smoker Alcohol: None Drugs: None - *Family History Maternal Family History: Family History (Last Reviewed 02/24/19 @ 08:59 by Sallie Sunshine) Mother Arthritis Migraine Father CAD (coronary artery disease) Hx of CABG Arthritis History Items: Heart Disease - in grandmother Paternal Family History: Family History (Last Reviewed 02/24/19 @ 08:59 by Sallie Sunshine) Mother Arthritis Migraine Father CAD (coronary artery disease) Hx of CABG Arthritis History Items: Heart Disease Review of Systems Constitutional: Denies: Chills, Fever, Weight Change Eyes: Denies: Blurred vision HEENT: Denies: Head Aches, Sinus Congestion, Sinus Drainage Cardiovascular: Reports: Chest Pain. Denies: Chest Pressure, Chest Tightness, Edema, Heaviness, Light Headedness, Orthopnea, Palpitations, Paroxysmal Noc. Dyspnea, Syncope Respiratory: Denies: Cough, Shortness of breath at rest, Sputum production Gastrointestinal: Denies: Abdominal Pain, Nausea, Vomiting Genitourinary: Denies: Dysuria Musculoskeletal: Denies: Joint Pain, Joint Tenderness Skin: Denies: Rash, Wounds Neurological: Denies: Numbness, Tingling, Focal weakness Psychiatric: Denies: Anxiety, Depression, Homicidal Ideations, Suicidal Ideations Hematologic/ Lymphatic: Denies: Easy Bruising, Easy Bleeding VTE Information - Inpt Only VTE Present on Admission: No VTE Pharm Prophylaxis ordered?: Yes - Physical Exam General: Alert, Oriented x3, Cooperative, No apparent distress HEENT: Atraumatic, PERRLA, EOMI, Normocephalic Oral: Moist Mucosa Neck: Supple, No JVD, Negative Carotid Bruits Lungs: Clear to auscultation, Normal air movement, No rhonchi, No wheeze Cardiovascular: Regular rate, Regular Rhythm, Normal S1, Normal S2, No murmurs Abdomen: Bowel Sounds Present, Soft, Non Tender, Non-Distended, No Hepato-splenomegaly Extremities: No clubbing, No cyanosis, No edema, Capillary Refill Less than 3 Seconds Skin: No rashes, No breakdown Musculoskeletal: No Tenderness to Palpation of Joints or Extremities Lymphatic: No Cervical, Supraclavicular, or Inguinal Adenopathy Neurological: Cranial nerves II-XII grossly intact, Neuro grossly intact, Motor Exam 5/5 strength throughout Psych/Mental Status: Normal Affect, Appropriate, Alert and oriented to time, place, person, mood and affect Vital Signs Temp Pulse Resp BP Pulse Ox 97.8 F 67 13 176/95 H 96 02/25/19 17:13 02/25/19 18:14 02/25/19 17:13 02/25/19 18:14 02/25/19 17:34 Oxygen Delivery Method Room Air Weight: 240 lb 11.916 oz Body Mass Index (BMI) 36.6 Laboratory Tests Past 24 Hrs WBC 14.5 H RBC 5.00 Hgb 15.2 H Hct 44.5 MCV 89.0 MCH 30.4 MCHC 34.2 RDW Std Deviation 40.5 Diagnostic Data Chest X-Ray 02/25/19 17:30 IMPRESSION: Normal x-ray examination of the chest. Electronically Signed: Baljinder Arzate DO at 17:57 EDT Tel , Service support , Assessment/Plan All Active Problems (Last Reviewed 02/24/19 @ 08:59 by Sallie Sunshine) Essential (primary) hypertension (Acute) Bulging lumbar disc (Acute) Segmental and somatic dysfunction of pelvic region (Acute) Strain of muscle, fascia and tendon of lower back, initial encounter (Acute) Segmental and somatic dysfunction of cervical region (Acute) Segmental and somatic dysfunction of thoracic region (Acute) Segmental and somatic dysfunction of lumbar region (Acute) Radiculopathy of lumbar region (Acute) 8-year-old female admitted with a complaint of chest pain. 1. Chest pain to r.o ACS * Admit to PCU with telemetry * Cycle troponins * Abnormal nitroglycerin as needed. P.o. aspirin 81 mg daily. * Check lipid panel. States she recently checked her A1c and was 5.6 * If troponins are negative for stress test tomorrow. * 2. Hypokalemia: Potassium is 3.4. Replace and monitor. 3. Hypertension: * Poorly controlled. Blood pressure was elevated at 176/95 on admission. Took her meds today. * Will resume her Cardizem and hydrochlorthiazide. * IV hydralazine PRN. * 5. Leukocytosis: White cell count is 14.5. This is likely reactive from steroids that she has been on. 6. Chronic back pain due to lumbar radiculopathy: Currently on prednisone. Prophylaxis: Lovenox Code Visit OBSV E KINZA M: [id number] Initial observation care L2 02/25/19 1846 <Electronically signed by Dee Dee Alonso MD> Date Dee Dee Alonso MD Cosigner Signature: Date (if applicable) CC: Charo Swenson DO; Dee Dee Alonso MD Signed Charo Swenson Start: 02-25-2019 End: 02-28-2019 Chest 1 View (Portable) Comments: See Note; NOTES: [facility] Services [address] [place] [id number] Chest 1 View (Portable) MR#: [id number] Acct: [id number] Name: WEST POSADAS Rep #: [id number] : 1960 F 58 From: Baljinder Arzate DO PCP: Charo Swenson DO Status: REG ER Study: Chest 1 View (Portable) Date of Exam: 02/25/19 Exam# [id number] Ordering Dr: Tammy Huerta DO STUDY: X-RAY CHEST REASON FOR EXAM: Female, 58 years old. Chest pain TECHNIQUE: Single AP portable view of the chest. COMPARISON: None. FINDINGS: The lungs are clear and expanded. There is no demonstrated pleural abnormality. Normal size heart. Normal mediastinum and nima. Normal visualized pulmonary arteries. Normal visualized aortic arch and descending thoracic aorta. Normal visualized thoracic spine. Normal visualized ribs, clavicles, and shoulders. There is no demonstrated abnormality of the visualized soft tissue structures of the upper abdomen. RAD/Chest 1 View (Portable) IMPRESSION: Normal x-ray examination of the chest. Electronically Signed: Baljinder ArzateDO at 17:57 EDT Tel , Service support , CC: Charo Swenson DO; Tammy Huerta DO Business Intelligence Analyst: Signed Charo Swenson Start: 11-26-2018 End: 11-26-2018 Chiropractic Report Comments: See Note; NOTES: [facility] [address] [place] [address] OFFICE VISIT Date of Service: 11/25/18 MR#: [id number] Acct: [id number] Name: WEST POSADAS Rep #: [id number] : 1960 Provider: Batsheva Charles D.C. Age/Sex: 58/F [place] [facility] Status: Signed Intake Vital Signs11/25/18 Body Mass Index (BMI) 36.1 11/25/18 Height 5 ft 8 in 11/25/18 Weight: 238 lb 11/25/18 Body Mass Index (BMI) 36.1 Intake Visit Reasons: Lower back pain Chief Complaint: L sided low back pain Is patient in pain?: Yes Allergies midazolam [From Versed] Allergy (Verified 02/19/17 10:24) Other codeine Adverse Reaction (Verified 11/15/14 12:40) Vomiting erythromycin base Adverse Reaction (Verified 11/15/14 12:40) [facility] Social History (Updated 11/26/18 @ 13:05 by Batsheva Charles DC) Smoking Status: Never smoker HPI Lower back pain : Chief Complaint: Left sided lower back pain Visit Number: 8 Details: WEST POSADAS is a 58 year old F who presents with decreased low back pain. West states that her pain has decreased, leaving her with only a slight sore intermittent ache banding across the low back. Today West rates her pain a 2/10.The previous pain that was radiating into her left leg has resolved since last visit. West denies any numbness, or tingling. Location: L lower back Duration: intermittent Aggravating or associated factors: sitting, walking Relieving factors: chiro Treatment: chiro Pain Quality: aching, dull Exam Musc General: Yes normal posture, normal gait, joint tenderness (T10,T11,L2,L3 L4, L5,L SI) and decreased ROM Thoracic/Lumbar Spine: thoracic and lumbar spine normal to inspection (flexed right), Lasegue's sign positive on the left, pain with thoraco-lumbar ROM with forward flexion, with lateral flexion to the left and with rotation to the left, paraspinal tenderness (slightly improved) on the left greater than right, thoraco-lumbar ROM limited with forward flexion, thoraco-lumbar spasm on the left greater than right (QL, piriformis) Sacroiliac joints: on the left tender to palpation Office Procedures Chiropractic Treatments Procedures Manipulation: 3-4 regions (T10,L2, L4, LIL) Electrical Stimulation: 15 mins Details: Electrical Stimulation therapy performed on the lower back area by Elvie Laguerre CMA Assessment AND Plan Problems 1. Bulging lumbar disc M51.26 2. Segmental and somatic dysfunction of pelvic region M99.05 3. Segmental and somatic dysfunction of thoracic region M99.02 4. Segmental and somatic dysfunction of lumbar region M99.03 Plan Patient was treated without incident. Continue with acute treatment. Orders Orders: Plan Detail Goals Decrease inflammation and pain Increase ability to work with less pain Follow Up 2 Weeks Coding Level of Care Code No Charge Diagnoses Bulging lumbar disc M51.26 Segmental and somatic dysfunction of pelvic region M99.05 Segmental and somatic dysfunction of thoracic region M99.02 Segmental and somatic dysfunction of lumbar region M99.03 Additional Codes Procedures - Electrical Stimulation: 15 mins (14715) Procedures - Manipulation: 3-4 regions (12502) 11/26/18 1305 <Electronically signed by Batsheva Charles D.C.> Date Batsheva Charles D.C. Cosigner Signature: Date (if applicable) CC: Charo Swenson Start: 11-23-2018 End: 11-23-2018 Chiropractic Report Comments: See Note; NOTES: [facility] [address] [place], [place] [id number] OFFICE VISIT Date of Service: 11/19/18 MR#: [id number] Acct: [id number] Name: WEST POSADAS Rep #: [id number] : 1960 Provider: Batsheva Charles D.C. Age/Sex: 58/F [place] [facility] Status: Signed Intake Intake Visit Reasons: back pain Chief Complaint: L sided low back pain Is patient in pain?: Yes Allergies midazolam [From Versed] Allergy (Verified 02/19/17 10:24) Other codeine Adverse Reaction (Verified 11/15/14 12:40) Vomiting erythromycin base Adverse Reaction (Verified 11/15/14 12:40) Vomiting [facility] Social History (Updated 11/23/18 @ 14:05 by Batsheva Charles DC) Smoking Status: Never smoker HPI back pain : Chief Complaint: Low back pain Visit Number: 7 Details: WEST POSADAS is a 58 year old F who presents with increased low back pain. West states that her pain has increased, leaving her with a deep and sore ache banding across the low back. Today West rates her pain a 4/10, she describes it as a sore ache that bands across the low back. At times the pain can be sharp with bending and walking a long distance. West denies any numbness, or tingling. Location: low back Duration: constant Aggravating or associated factors: bending, lifting, twisting and walking a long distance Relieving factors: chiro Pain Quality: aching, dull, cramping, sharp Exam Musc General: Yes normal posture, normal gait, joint tenderness (T10,T11,L2,L3 L4, L5,L SI) and decreased ROM Thoracic/Lumbar Spine: thoracic and lumbar spine normal to inspection (flexed right), Lasegue's sign positive on the left, pain with thoraco-lumbar ROM with forward flexion, with lateral flexion to the left and with rotation to the left, paraspinal tenderness on the left greater than right, thoraco-lumbar ROM limited with forward flexion, thoraco-lumbar spasm on the left greater than right (QL, piriformis) Sacroiliac joints: on the left tender to palpation Office Procedures Chiropractic Treatments Procedures Manipulation: 3-4 regions (T10,L3, L5,LIL) Electrical Stimulation: 15 mins (Lumbar ) Details: Electric stimulation performed by Sallie Mathis on the lumbar spine 15 min Assessment AND Plan 1. Bulging lumbar disc M51.26 Orders Orders: 2. Segmental and somatic dysfunction of pelvic region M99.05 Orders Orders: 3. Segmental and somatic dysfunction of lumbar region M99.03 Orders Orders: 4. Segmental and somatic dysfunction of thoracic region M99.02 Orders Orders: Plan Detail Other Orders Orders: Additional Comments patient was treated without incident. Follow up PRN. Goals Decrease inflammation and pain Increase ability to work with less pain Follow Up PRN Coding Level of Care Code No Charge Diagnoses Bulging lumbar disc M51.26 Segmental and somatic dysfunction of pelvic region M99.05 Segmental and somatic dysfunction of lumbar region M99.03 Segmental and somatic dysfunction of thoracic region M99.02 Additional Codes Procedures - Manipulation: 3-4 regions (73483) Procedures - Electrical Stimulation: 15 mins (87480) 11/23/18 1405 <Electronically signed by Batsheva Charles D.C.> Date Batsheva Charles D.C. Cosigner Signature: Date (if applicable) CC: Charo Swenson Start: 11-11-2018 End: 11-11-2018 Chiropractic Report Comments: See Note; NOTES: [facility] [address] [place] [address] OFFICE VISIT Date of Service: 11/11/18 MR#: [id number] Acct: [id number] Name: WEST POSADAS Rep #: [id number] : 1960 Provider: Batsheva Charles D.C. Age/Sex: 58/F Location[place] [facility] Status: Signed Intake Intake Visit Reasons: BACK PAIN Chief Complaint: L sided low back pain Is patient in pain?: Yes Allergies midazolam [From Versed] Allergy (Verified 02/19/17 10:24) Other codeine Adverse Reaction (Verified 11/15/14 12:40) Vomiting erythromycin base Adverse Reaction (Verified 11/15/14 12:40) Vomiting Medications meloxicam 7.5 mg tablet 7.5 mg PO DAILY #30 tab 10/14/18 [Rx Confirmed 10/14/18] PFSH Social History Smoking Status: Never smoker HPI BACK PAIN : Chief Complaint: L sided low back pain Visit Number: 6 Details: WEST POSADAS is a 58 year old F who presents with L sided low back pain. West states that her pain has slightly increased after attending a wedding. Today West rates her pain a 4/10, she describes it as a deep and sore ache that starts in the L side of the low back, and radiates into the L upper thigh. Rotation, standing and walking causes the pain to increase. West denies any numbness, or tingling. Location: L low back Duration: intermittent Aggravating or associated factors: rotataion, walking, and standing Relieving factors: chiro Pain Quality: aching, dull, cramping, sharp Exam Musc General: Yes normal posture, normal gait, joint tenderness (T10,T11,L2,L3 L4, L5,L SI) and decreased ROM Thoracic/Lumbar Spine: thoracic and lumbar spine normal to inspection (flexed right), Lasegue's sign positive on the left, pain with thoraco-lumbar ROM with forward flexion, with lateral flexion to the left and with rotation to the left, paraspinal tenderness on the left greater than right, thoraco-lumbar ROM limited with forward flexion, thoraco-lumbar spasm on the left greater than right (QL, piriformis) Sacroiliac joints: on the left tender to palpation Office Procedures Chiropractic Treatments Procedures Manipulation: 3-4 regions (T10,L4,LIL) Electrical Stimulation: 15 mins (L lumbar ) Details: Electric stimulation 15 min perfromed by Sallie Mathis 15 min Assessment AND Plan 1. Segmental and somatic dysfunction of pelvic region M99.05 Orders Orders: 2. Bulging lumbar disc M51.26 Orders Orders: 3. Segmental and somatic dysfunction of thoracic region M99.02 Orders Orders: 4. Segmental and somatic dysfunction of lumbar region M99.03 Orders Orders: Plan Detail Other Orders Orders: Additional Comments patient is improving slowly, transition to PRN plan. Treatment was provided and patient experienced relief upon departure. Reviewed stretches for at home. Goals Decrease inflammation and pain Increase ability to work with less pain Follow Up PRN Coding Level of Care Code No Charge Diagnoses Segmental and somatic dysfunction of pelvic region M99.05 Bulging lumbar disc M51.26 Segmental and somatic dysfunction of thoracic region M99.02 Segmental and somatic dysfunction of lumbar region M99.03 Additional Codes Procedures - Manipulation: 3-4 regions (50137) Procedures - Electrical Stimulation: 15 mins (44696) 11/11/18 1050 <Electronically signed by Batsheva Charles D.C.> Date Batsheva Charles D.C. Cosigner Signature: Date (if applicable) CC: Charo Swenson Start: 11-05-2018 End: 11-05-2018 Chiropractic Report Comments: See Note; NOTES: [facility] [address] [place] [address] OFFICE VISIT Date of Service: 11/05/18 MR#: [id number] Acct: [id number] Name: WEST POSADAS Rep #: [id number] : 1960 Provider: Batsheva Charles D.C. Age/Sex: 58/F Location[place] [facility] Status: Signed Intake Vital Signs11/05/18 Body Mass Index (BMI) 36.1 Intake Visit Reasons: LOW BACK PAIN Chief Complaint: low back pain Is patient in pain?: No Allergies midazolam [From Versed] Allergy (Verified 02/19/17 10:24) Other codeine Adverse Reaction (Verified 11/15/14 12:40) Vomiting erythromycin base Adverse Reaction (Verified 11/15/14 12:40) Vomiting Medications meloxicam 7.5 mg tablet 7.5 mg PO DAILY #30 tab 10/14/18 [Rx Confirmed 10/14/18] [facility] Social History Smoking Status: Never smoker HPI LOW BACK PAIN: Chief Complaint: Low back pain Visit Number: 5 Details: WEST POSADAS is a 58 year old F who presents with decreased low back pain. West states that her low back pain has greatly decreased, leaving her with a dull and sore ache that comes and goes. Rotation of the back, bending, lifting, and twisting can cause a slight dull ache that comes and goes. West denies any numbness, tingling, or radiculopathy. Location: low back Duration: intermittent Aggravating or associated factors: rotation, bending, lifting Relieving factors: chiro Pain Quality: aching, dull, cramping Exam Musc General: Yes normal posture, normal gait, joint tenderness (T10,T11,L2,L3 L4, L5,L SI) and decreased ROM Thoracic/Lumbar Spine: thoracic and lumbar spine normal to inspection (flexed right), Lasegue's sign positive on the left, pain with thoraco-lumbar ROM with forward flexion, with lateral flexion to the left and with rotation to the left, paraspinal tenderness (slightly improved) on the left greater than right, thoraco-lumbar ROM limited with forward flexion, thoraco-lumbar spasm (slightly improved) on the left greater than right (QL, piriformis) Sacroiliac joints: on the left tender to palpation Office Procedures Chiropractic Treatments Procedures Manipulation: 3-4 regions (T10, L4,LIL) Electrical Stimulation: 15 mins (LUMBAR ) Details: Electric stimulation 15 min performed by Sallie Mathis 15 min Assessment AND Plan 1. Bulging lumbar disc M51.26 Orders Orders: 2. Segmental and somatic dysfunction of pelvic region M99.05 Orders Orders: 3. Segmental and somatic dysfunction of thoracic region M99.02 Orders Orders: 4. Segmental and somatic dysfunction of lumbar region M99.03 Orders Orders: Plan Detail Other Orders Orders: Additional Comments Patient is showing improvement. Continue care on a PRN basis. She was treated without incident. Goals Decrease inflammation and pain Increase ability to work with less pain Follow Up PRN Coding Level of Care Code No Charge Diagnoses Bulging lumbar disc M51.26 Segmental and somatic dysfunction of pelvic region M99.05 Segmental and somatic dysfunction of thoracic region M99.02 Segmental and somatic dysfunction of lumbar region M99.03 Additional Codes Procedures - Manipulation: 3-4 regions (82069) Procedures - Electrical Stimulation: 15 mins (18474) 11/05/18 1112 <Electronically signed by Batsheva Charles D.C.> Date Batsheva Charles D.C. Cosigner Signature: Date (if applicable) CC: Charo Swenson Start: 11-03-2018 End: 11-03-2018 Chiropractic Report Comments: See Note; NOTES: [facility] [address] [place] [address] OFFICE VISIT Date of Service: 11/03/18 MR#: [id number] Acct: [id number] Name: WEST POSADAS Rep #: [id number] : 1960 Provider: Batsheva Charles D.C. Age/Sex: 58/F Location[place] [facility] Status: Signed Intake Intake Visit Reasons: back pain Chief Complaint: low back pain Is patient in pain?: Yes Allergies midazolam [From Versed] Allergy (Verified 02/19/17 10:24) Other codeine Adverse Reaction (Verified 11/15/14 12:40) Vomiting erythromycin base Adverse Reaction (Verified 11/15/14 12:40) Vomiting Medications meloxicam 7.5 mg tablet 7.5 mg PO DAILY #30 tab 10/14/18 [Rx Confirmed 10/14/18] PFSH Social History Smoking Status: Never smoker HPI back pain : Chief Complaint: Low back pain Visit Number: 4 Details: WEST POSADAS is a 58 year old F who presents with increased left sided low back pain. She states that recently she has been working in her yard causing increased pain. Today West rates her pain a 3/10, she describes it as a deep and sore ache that is constant. Rotation of the back, bending, and lifting causes increased pain. The pain begins in her left low back and will radiate at times to the outer left thigh. No decrease in strength in her leg. Location: low back Duration: constant Aggravating or associated factors: rotation, bending, and lifting Relieving factors: chiro Pain Quality: aching, dull, cramping, sharp Exam Musc General: Yes normal posture, normal gait, joint tenderness (T10,T11,L2,L3 L4, L5,L SI) and decreased ROM Thoracic/Lumbar Spine: thoracic and lumbar spine normal to inspection (flexed right), Lasegue's sign positive on the left, pain with thoraco-lumbar ROM with forward flexion, with lateral flexion to the left and with rotation to the left, paraspinal tenderness on the left greater than right, thoraco-lumbar ROM limited with forward flexion, thoraco-lumbar spasm on the left greater than right (QL, piriformis) Sacroiliac joints: on the left tender to palpation (with edema) Office Procedures Chiropractic Treatments Procedures Manipulation: 3-4 regions (T10,L2, L4,LIL) Electrical Stimulation: 15 mins (Lumbar) Details: Electric stimulation performed by Sallie Mathis 15 min Assessment AND Plan 1. Bulging lumbar disc M51.26 Orders Orders: 2. Segmental and somatic dysfunction of pelvic region M99.05 Orders Orders: 3. Segmental and somatic dysfunction of thoracic region M99.02 Orders Orders: 4. Segmental and somatic dysfunction of lumbar region M99.03 Orders Orders: Plan Detail Other Orders Orders: Additional Comments Patient is having an exacerbation. Recommend daily ice for 1 hour. Treated patient without incident. Recommend follow up in 2 days and monitor patient response to care. Goals Decrease inflammation and pain Increase ability to work with less pain Follow Up 2 Days Coding Level of Care Code No Charge Diagnoses Bulging lumbar disc M51.26 Segmental and somatic dysfunction of pelvic region M99.05 Segmental and somatic dysfunction of thoracic region M99.02 Segmental and somatic dysfunction of lumbar region M99.03 Additional Codes Procedures - Manipulation: 3-4 regions (41951) Procedures - Electrical Stimulation: 15 mins (46820) 11/03/18 1528 <Electronically signed by Batsheva Charles D.C.> Date Batsheva Charles D.C. Cosigner Signature: Date (if applicable) CC: Charo Swenson Start: 10-14-2018 End: 10-14-2018 Orthopedic Visit Report Comments: See Note; NOTES: [facility] [address] [place] [address] OFFICE VISIT Date of Service: 10/14/18 MR#: [id number] Acct: [id number] Name: WEST POSADAS Rep #: [id number] : 1960 Provider: Chace Pak DO Age/Sex: 58/F [place] [facility] Status: Signed Intake Vital Signs10/14/18 Body Mass Index (BMI) 36.1 Intake Visit Reasons: Left Knee Chief Complaint: L sided low back pain Allergies midazolam [From Versed] Allergy (Verified 02/19/17 10:24) Other codeine Adverse Reaction (Verified 11/15/14 12:40) Vomiting erythromycin base Adverse Reaction (Verified 11/15/14 12:40) Vomiting Medications meloxicam 7.5 mg tablet 7.5 mg PO DAILY #30 tab 10/14/18 [Rx Confirmed 10/14/18] PFSH Social History Smoking Status: Never smoker HPI Left Knee: Details: Parts of this documentation were recorded by a scribe, this documentation accurately reflects the service provided and the decisions made by , Chace Pak DO 10/14/18 0802. WEST POSADAS is a 58 year old F here today for f/u left knee MRI. She continues to have medial knee pain with increased pain descending stairs and with transition from sit to stand. Denies any clicking or locking but has a feeling of instability especially after several days in a row of working. Denies numbness, tingling or other associated symptoms. She had an injection two weeks ago by Dr Null which was her second one. She denies any bracing. She is ambulating with an antalgic gait. She states that her pain increased while doing PT in June for her back and has been unable to be active since. She is actively working on weight loss and is down 20lbs. Ortho Exam Right Knee Patella Translation: 1 Left Knee Skin/Wound: No ecchymosis, No erythema, No swelling Homans Sign: No Knee ROM: Yes ROM-Extension -20 to 0, No ROM-Flexion 0-140 (95) Examination: Yes med jt line tenderness, No Lat jt line tenderness, No TTP inf pole patella, Yes Pain with flexion Stability: NML: Anterior Drawer, NML: Posterior Drawer, NML: Varus 30, 1+: Valgus 30 (gapping due to jt narrowing medial with correctable deformity) Patella Translation: 1 Apprehension with Lateral Translation: No Patella Grind: No Supplemental Info X-rays and MRI reviewed demonstrating severe medial compartment arthritis intact ACL mild arthritic change patellofemoral lateral Assessment AND Plan Problems 1. Primary osteoarthritis of left knee M17.12 Plan Personally reviewed the MRI and explained that she has significant OA in the medial compartment. Her treatment options are steroid injection but only three months apart, viscosupplementation, PRP/stem but that is not covered by insurance, ramp service agent brace, PT for strengthening but that wont cure the OA, oral anti inflammatories and if conservative treatment fails discuss a uni vs total knee replacement. Reviewed the risks and benefits of a partial knee at this point and the recovery time being shorter than total. Answered patients questions about an arthroscopy and explained she would not likely get any relief because she has no mechanical blocks or meniscus pathology. Will prescribe Mobic 7.5mg/d, if she needs it for longer than 3 months return to her PCP for blood work and refill. Will order Euflexxa and an ramp service agent brace as well. She has had physical therapy this past June and home exercises have not been sufficient. He has been working on weight loss and has lost about 20 pounds. Follow up or sooner if pain, swelling, numbness or associated symptoms, or concerns develop. All questions answered. Patient in agreement of plan. Medications New: Plan Detail Goals Decrease inflammation and pain Increase ability to work with less pain Coding Level of Care Code Off vis,new,level 3 Diagnoses Primary osteoarthritis of left knee M17.12 Osteoarthritis type: primary 10/14/18 1604 <Electronically signed by Chace Pak DO> Date Chace Pak DO Cosigner Signature: Date (if applicable) CC: Charo Contreras Start: 10-02-2018 End: 10-02-2018 Lower Ext Joint Only (Routine) Comments: See Note; NOTES: [facility] Imaging Services [address] [place] [address] Lower Ext Joint Only (Routine) MR#: [id number] Acct: [id number] Name: WEST POSADAS Rep #: [id number] : 1960 F 58 From: Audrey Dey MD PCP: Charo Swenson DO Status: [facility] CLI Study: Lower Ext Joint Only (Routine) Date of Exam: 10/02/18 Exam# [id number] Ordering Dr: Charo Swenson DO STUDY: MRI LEFT KNEE REASON FOR EXAM: Female, 58 years old. Medial knee pain TECHNIQUE: Standardized fat and water weighted pulse sequences were obtained in all 3 orthogonal planes. COMPARISON: Knee x-ray 04/21/2017. 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 There is a 6 mm extrusion of the medial meniscus without apparent tear There is diffuse, greater than 50% thickness articular cartilage loss of the medial femorotibial compartment. There is mild osteoarthritic spur formation of the medial knee compartment. Normal medial collateral ligamentous complex (MCL). Normal distal semimembranosus, gracilis and semitendinosus tendons. Normal lateral meniscus. There is signal heterogeneity within the articular cartilage of the lateral femorotibial compartment without significant thinning and with an intact articular cartilage surface. Normal lateral femoral condyle and tibial plateau. Normal proximal tibiofibular articulation. Normal lateral collateral ("fibular") ligament. Normal popliteus tendon. Normal biceps femoris tendon. Normal anterior cruciate ligament (ACL). Normal posterior cruciate ligament (PCL). Normal congruent patellofemoral articulation. There is signal heterogeneity within the articular cartilage of the patellofemoral compartment without significant thinning and with an intact articular cartilage surface. Normal medial and lateral patellar retinaculum. Normal quadriceps tendon. Normal patellar tendon. Normal Hoffa's fat pad. There is trace joint effusion. There is mild subcutaneous edema along the prepatellar subcutaneous tissue. There is a small, septated Yu's cyst. The otherwise visualized osseous structures are unremarkable. 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 Mild chondromalacia of the patellofemoral and lateral compartment. There is mild subcutaneous edema along the prepatellar subcutaneous tissue. Small Yu's cyst. Electronically Signed: Audrey Yissel, at 11:45 EDT Tel , Service support , CC: Charo Swenson DO Business Intelligence Analyst: Signed Charo Swenson Work Phone: Start: 07-08-2018 End: 07-08-2018 Chiropractic Report Comments: See Note; NOTES: [facility] [address] [place] [address] OFFICE VISIT Date of Service: 07/01/18 MR#: [id number] Acct: [id number] Name: WEST POSADAS Rep #: [id number] : 1960 Provider: Batsheva Charles D.C. Age/Sex: 58/F Location[facility] Status: Signed Intake Vital Signs07/01/18 Body Mass Index (BMI) 36.1 07/01/18 Height 5 ft 8 in 07/01/18 Weight: 238 lb 07/01/18 Body Mass Index (BMI) 36.1 Intake Visit Reasons: BACK PAIN Chief Complaint: Low back pain Is patient in pain?: Yes Allergies midazolam [From Versed] Allergy (Verified 02/19/17 10:24) Other codeine Adverse Reaction (Verified 11/15/14 12:40) Vomiting erythromycin base Adverse Reaction (Verified 11/15/14 12:40) Vomiting Medications No Known/Unobtainable [No Known Home Medications] 02/19/17 [History Confirmed 02/19/17] PFSH Social History Smoking Status: Never smoker HPI BACK PAIN: Chief Complaint: Low back pain Visit Number: 2 Details: WEST POSADAS is a 58 year old F who presents with increased low back pain. She states that over the past week she has felt a pinching sensation in the low back, that increases with bending forward and walking. The pain comes and goes and has slightly decreased. Today West rates her pain a 3/10 and describes it as a sore and tight ache that bands across the low back, and at times up the back. West denies any numbness, tingling, or radculopathy. Location: low back Duration: intermittent Aggravating or associated factors: bending and prolonged walking Relieving factors: chiro and stretching Pain Quality: aching, dull, cramping Exam Musc General: Yes normal posture, normal gait, joint tenderness (T10,T11,L2,L3 L4, L5,L SI) and decreased ROM Thoracic/Lumbar Spine: thoracic and lumbar spine normal to inspection (flexed right), Lasegue's sign positive (minimal discomfort) on the left, pain with thoraco-lumbar ROM, paraspinal tenderness (slightly improved) on the left greater than right, thoraco-lumbar ROM limited, thoraco-lumbar spasm (slightly improved) on the left greater than right Sacroiliac joints: on the left Office Procedures Chiropractic Treatments Procedures Manipulation: 3-4 regions (T10,L2,L5,LIL) Electrical Stimulation: 15 mins (Lumbar ) Assessment AND Plan 1. Segmental and somatic dysfunction of thoracic region M99.02 Orders Orders: 2. Segmental and somatic dysfunction of lumbar region M99.03 Orders Orders: 3. Segmental and somatic dysfunction of pelvic region M99.05 Orders Orders: 4. Bulging lumbar disc M51.26 Plan Detail Other Orders Orders: Additional Comments Patient has shown improvement and returned to work. Recommend follow up should symptoms return. She is also completing a home exercise program from PT. Goals Decrease inflammation and pain Increase ability to work with less pain Follow Up PRN Coding Level of Care Code No Charge Diagnoses Segmental and somatic dysfunction of thoracic region M99.02 Segmental and somatic dysfunction of lumbar region M99.03 Segmental and somatic dysfunction of pelvic region M99.05 Bulging lumbar disc M51.26 Additional Codes Procedures - Manipulation: 3-4 regions (83607) Procedures - Electrical Stimulation: 15 mins (48128) 07/08/18 0852 <Electronically signed by Batsheva Charles D.C.> Date Batsheva Charles D.C. Cosigner Signature: Date (if applicable) CC: Charo Swenson Start: 06-10-2018 End: 06-10-2018 Chiropractic Report Comments: See Note; NOTES: [facility] [address] [place] [address] OFFICE VISIT Date of Service: 06/09/18 MR#: [id number] Acct: [id number] Name: WEST POSADAS Rep #: [id number] : 1960 Provider: Batsheva Charles D.C. Age/Sex: 58/F Location[place] [facility] Status: Signed Intake Vital Signs06/09/18 Height 5 ft 8 in 06/09/18 Weight: 238 lb 06/09/18 Body Mass Index (BMI) 36.1 Intake Visit Reasons: back pain Chief Complaint: Low back pain Is patient in pain?: Yes Allergies midazolam [From Versed] Allergy (Verified 02/19/17 10:24) Other codeine Adverse Reaction (Verified 11/15/14 12:40) Vomiting erythromycin base Adverse Reaction (Verified 11/15/14 12:40) Vomiting Medications No Known/Unobtainable [No Known Home Medications] 02/19/17 [History Confirmed 02/19/17] PFSH Social History Smoking Status: Never smoker HPI back pain : Chief Complaint: low back pain Visit Number: 1 Details: WEST POSADAS is a 58 year old F who presents with decreased low back pain. She states that overall her pain has decreased, leaving her with a sore and stiff ache banding across the low back. After sitting for a long period of time the pain will increase, leaving her with a sharp shooting pain banding across the low back. Today West rates her pain a 3/10 and describes it as a dull ache, she denies any numbness, tingling, or radiculopathy. Location: low back Duration: intermittent Aggravating or associated factors: bending, lifting, twisting, and prolonged sitting Relieving factors: chiro Pain Quality: aching, dull, cramping, sharp Exam Musc General: Yes normal posture, normal gait, joint tenderness (T10,T11,L2,L3 L4, L5,L SI) and decreased ROM Thoracic/Lumbar Spine: thoracic and lumbar spine normal to inspection (flexed right), pain with thoraco-lumbar ROM with forward flexion, thoraco-lumbar spasm (slightly improved) on the left greater than right (paraspinal lumbar), Lasegue's sign positive, paraspinal tenderness (slightly improved) on the left greater than right (lower lumbar), thoraco-lumbar ROM limited with forward flexion and with lateral flexion to the left Sacroiliac joints: on the left Office Procedures Chiropractic Treatments Procedures Manipulation: 3-4 regions (T10,L4, LIL) Electrical Stimulation: 15 mins (lumbar ) Assessment AND Plan 1. Segmental and somatic dysfunction of pelvic region M99.05 Orders Orders: 2. Segmental and somatic dysfunction of thoracic region M99.02 Orders Orders: 3. Segmental and somatic dysfunction of lumbar region M99.03 Orders Orders: 4. Radiculopathy of lumbar region M54.16 Orders Orders: Plan Detail Other Orders Orders: Additional Comments Continue care on a lesser frequency. Mrs. Posadas has returned to work and returning to her ADLs without exacerbation. Goals Decrease inflammation and pain Increase ability to work with less pain Follow Up 2 Weeks Coding Level of Care Code No Charge Diagnoses Segmental and somatic dysfunction of pelvic region M99.05 Segmental and somatic dysfunction of thoracic region M99.02 Segmental and somatic dysfunction of lumbar region M99.03 Radiculopathy of lumbar region M54.16 Additional Codes Procedures - Manipulation: 3-4 regions (76174) Procedures - Electrical Stimulation: 15 mins (86199) 06/10/18 0852 <Electronically signed by Batsheva Charles D.C.> Date Batsheva Charles D.C. Cosigner Signature: Date (if applicable) CC: Charo Swenson Start: 06-09-2018 End: 06-09-2018 PT D/C Summary (1) Comments: See Note; NOTES: [facility] [address] [place] [address] [address] [place] [address] / REHABILITATION SERVICES DISCHARGE SUMMARY MR#: [id number] Acct: [id number] Name: WEST POSADAS Rep #: [id number] : 1960 58 From: Marlene Alonso PT, Cert. MDT Referring Dr.: ROMEO Huffman Status: REG RCR Insurance: [facility] [employer] SELF PAY INSURANCE HP - PT D/C Summary It has been my pleasure to treat WEST POSADAS under orders from ROMEO Sellers, for the diagnosis of LUMBOSACRAL BACK PAIN for a total of 17 visit(s). Discharge Date: Please see the following information for a summary of their discharge status. - Subjective Subjective: PATIENT REPORTS HER BACK AND HER KNEE ARE STILL IMPROVING. PATIENT REPORTS HER HEP IS GOING GOOD. WENT TO THE [facility] OVER THE WEEKEND AND DID GYM EX'S - WHICH WENT WELL. MRI JUN 04 2018. APPOINTMENT WITH DR. CHARLES TOMORROW. INCREASED LOW BACK ACHYING ON WORK DAYS AND AFTER WORK FridayJun EVEN FELT IT IN HER LEFT THIGH. JUST CAME FROM WORK TODAY. NOT PREVENTING HER FROM DOING HER JOB. SITTING IS THE WORST. PATIENT REPORTS SHE IS PRETTY MUCH BACK TO BEING ABLE TO DO ALL OF HER NORMAL ACTIVITIES. ASKING IF AN INJECTION WOULD HELP. PATIENT REPORTS SHE HAS EVEN BEEN ABLE TO DECREASE USE OF ADVIL. - Pain LEFT LOW BACK Pain Intensity (Out of 10): 2 LEFT KNEE Pain Intensity (Out of 10): 3 - Overall Improvement % Improvement: 90 - Objective Objective/Function: PATIENT IS IMPROVING IN TERMS OF LUMBAR ROM, KNEE ROM, TRUNK AND LE STRENGTH, LE FLEXABILITY AND ADL FUNCTION HOWEVER SHE STILL HAS SIGNIFICANT FINDINGS. LUMBAR MVMT LOSS: FLEX - MIN TO MOD, EXT -MOD. RIGHT SG - MOD AND LEFT SG - MOD. PATIENT IS TOLERATING REP EIL WELL. FLEXION IS STILL LIMITED AND PROVOKES PAIN. ALL GOALS HAVE TECH. BEEN MET AND SHE IS INDEP WITH BOTH POOL AND LAND EX PROGRAMS ALTHOUGHT POOL EX'S ARE TOLERATED BETTER THAN LAND. MY HOPE IS THAT SHE WILL CONTINUE TO IMPROVE WITH EX AND TIME BUT IF NOT PAIN MGMT MIGHT BE INDICATED. SHE NOW HAS NEGATIVE LLE DURAL SIGN AND SHE IS NOW ABLE TO TRANSFER FROM SIT TO STAND WITHOUT UE ASSIST OR INCREASED PAIN. SHE SUBJECTIVELY REPORTS MORE IMPROVEMENT THAN IS SEEN OBJECTIVELY AGAIN BUT THEY ARE STARTING TO CORRELATE BETTER. SUDHA LE STRENGTH IS 5/5 WITH MMT'ING. PATIENT IS DEMONSTRATING AND COMMUNICATING IMPROVED CADANCE WITH GAIT AND REPORTING SIGNIFICANTLY LESS PAIN OVER-ALL BUT STILL WITH SOME MODIFIED ACTIVITIES ESPECIALLY SITTING. OSWESTRY SCORE HAS IMPROVED FROM 30 TO 17. LEFT KNEE FLEXION ROM HAS IMPROVED FROM 106 DEG TO 125 DEG. STILL - 3 DEG EXTENSION. - Goals Goal 1:: DECREASE C/O BACK AND SUDHA LE SX'S Goal Progress: Goal Met Goal 2:: IMPROVE PERSONAL CARE, LIFTING, WALKING, SITTING, STANDING, SLEEP, SOCIAL LIFE, TRAVEL AND WORK/HOMEMAKING FUNCTION Goal Progress: Goal Met Goal 3:: INSTRUCT IN PROPHYLAXIS Goal Progress: Goal Met Goal 4:: DECREASE C/O LEFT KNEE PAIN Goal Progress: Goal Met - Plan Plan: D/C TO INDEP EX. PATIENT AGREEABLE. - D/C Information If there are questions or concerns regarding this patient's physical therapy, please feel free to call me at [phone]. Thank you for the referral of this patient. Sincerely, Marlene Alonso, PT, Cert MDT <Electronically signed by Prosper Goode PT. MDT> 06/09/18 1017 CC: ROMEO Huffman; Charo Swenson DO WILLIAM Signed Charo Swenson Start: 06-04-2018 End: 06-05-2018 Spine Lumbar (Routine) Comments: See Note; NOTES: [facility] Services [address] [place] [address] Spine Lumbar (Routine) MR#: [id number] Acct: [id number] Name: WEST POSADAS Rep #: [id number] : 1960 F 58 From: Jerry Willis MD PCP: Charo Swenson DO Status: REG CLI Study: Spine Lumbar (Routine) Date of Exam: 06/04/18 Exam# [id number] Ordering Dr: Batsheva Charles D.C. STUDY: MRI LUMBAR SPINE WITHOUT CONTRAST REASON FOR EXAM: Female, 58 years old. Low back pain radiating to left leg TECHNIQUE: Standardized fat and water weighted pulse sequences were obtained in the sagittal and axial planes. COMPARISON: None FINDINGS: T12-L1: Normal endplates. Normal disc height, hydration and morphology. Normal bilateral facet joints. Normal central canal and bilateral lateral recesses. Normal bilateral intervertebral neural foramina. Normal lumbar lordosis. There is no substantial scoliosis. Normal conus medullaris that terminates at T12-L1 No evidence for acute fracture or subluxation. 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 Normal disc height, hydration and morphology. Normal bilateral facet joints. Normal central canal and bilateral lateral recesses. Normal bilateral intervertebral neural foramina. L2-3: Normal endplates. Normal disc height, hydration and morphology. Normal bilateral facet joints. Normal central canal and bilateral lateral recesses. Normal bilateral intervertebral neural foramina. L3-4: Normal endplates. Normal disc height, desiccation and minor annular bulge in association with small left paracentral disc protrusion. Normal bilateral facet joints. Normal central canal and bilateral lateral recesses. Normal bilateral intervertebral neural foramina. L4-5: Degenerative endplate changes. Normal disc height, desiccation and mild annular bulge. Minor facet arthropathy and thickening of ligamenta flava. Normal central canal. Mild bilateral recess and neuroforaminal encroachment L5-S1: Normal endplates. Normal disc height, desiccation and minimal annular bulge.. Minor facet arthropathy and thickening of ligamenta flava.. Normal central canal and bilateral lateral recesses. Normal bilateral intervertebral neural foramina. Normal visualized sacral ala. Normal visualized paraspinous soft tissue structures. MRI/Spine Lumbar (Routine) IMPRESSION: Mild spinal stenosis at L4-5 secondary to minimal annular bulge facet arthropathy and thickening of ligamenta flava Minor annular bulge and small left paracentral disc protrusion at L3-4 without significant spinal stenosis Minimal annular bulge at L5-S1 without spinal stenosis Electronically Signed: Jerry Willis MD at 21:48 EST , Service support , CC: Charo Swenson DO; Batsheva Charles D.C. Business Intelligence Analyst: Signed Charo Swenson Start: 05-05-2018 End: 05-05-2018 Chiropractic Report Comments: See Note; NOTES: [facility] [address] [place] [address] OFFICE VISIT Date of Service: 05/05/18 MR#: [id number] Acct: [id number] Name: WEST POSADAS Rep #: [id number] : 1960 Provider: Batsheva Charles D.C. Age/Sex: 58/F Location[place] [facility] Status: Signed Intake Vital Signs05/05/18 Height 5 [...] Low back pain Visit Number: 8 Details: WEST POSADAS is a 58 year old F who presents with decreased low back pain. West states that while doing PT her pain has decreased, she is now able to walk for 30 minutes at time, and sit for a longer period of time. Today West rates her pain a 3/10 and describes it as a deep ache that bands across the low back. When standing her back does become slightly spastic and painful. West denies any numbness, tingling, or radiculopathy. She [...] Additional Codes Procedures - Manipulation: 3-4 regions (05062) Procedures - Electrical Stimulation: 15 mins (10249) 05/05/18 1541 <Electronically signed by Batsheva Charles D.C.> Date Batsheva Charles D.C. Cosigner Signature: Date (if applicable) CC: Charo Swenson Start: 05-04-2018 End: 05-04-2018 Re-Evaluation - PT (1) Comments: See Note; NOTES: [facility] [address] [place] [address] Fax REEVALUATION / MEDICARE RECERTIFICATION PHYSICAL THERAPY MR#: [id number] Acct: [id number] Name: WEST POSADAS Rep #: [id number] : 1960 58 From: Marlene Alonso PT, Cert. MDT Referring Dr.: ROMEO Huffman Status: REG RCR Insurance: [facility] [employer] SELF PAY INSURANCE ROMEO Sellers, It has been my pleasure to treat WEST POSADAS over the last 7 visits for [...] training, Flexibilty training, Gait and locomotor training, "In an aquatic setting", Active ROM, Dynamic Lumbar Stabilization For the Purpose of:: To decrease pain, To increase ROM, To improve muscle performance and motor function, To improve ability to perform ADL's, To increase tolerance to activity/condition/position , To improve ability of physical actions for home/community/work/leisure , To improve gait and locomotor functions TENS: Yes IF ES: Yes Cryotherapy (ice pack, ice massage): Yes Thermo therapy (hot pack): Yes Ultrasound (thermal/non thermal): Yes For the Purpose of:: To decrease pain, To decrease swelling/inflammation, To increase ROM, To improve nutrient delivery to tissue Please do not hesitate to contact me at [phone] by phone or if you have questions or concerns regarding this new plan of care! Sincerely, Marlene Alonso <Electronically signed by Marlene Alonso PT, Cert. MDT> 05/04/18 6455 CC: ROMEO Huffman; Charo Swenson DO WILLIAM Signed For Medicare only, by signing this I certify the plan of care. _ Physicians Signature Date Charo Swenson Start: 04-28-2018 End: 04-28-2018 Chiropractic Report Comments: See Note; NOTES: [facility] [address] [place] [address] OFFICE VISIT Date of Service: 04/27/18 MR#: [id number] Acct: [id number] Name: WEST POSADAS Rep #: [id number] : 1960 Provider: Batsheva Charles D.C. Age/Sex: 58/F Location[place] [facility] Status: Signed Intake Vital Signs04/28/18 Body Mass [...] Low back pain Visit Number: 7 Details: WEST POSADAS is a 58 year old F who presents with increased low back pain. She states that on Friday she was up and walking throughout her home with ease, although Friday after rising her pain was increased, leaving her with a "heavy" leg and numbness in the toes. Today West rates her pain a 5/10 and describes [...] Additional Codes Procedures - Manipulation: 3-4 regions (29955) 04/28/18 1652 <Electronically signed by Batsheva Charles D.C.> Date Batsheva Perdomo Signature: Date (if applicable) CC: Charo Swenson Start: 04-28-2018 End: 04-29-2018 Knee 4 or More Views Comments: See Note; NOTES: [facility] [address] [place] [address] Knee 4 or More Views MR#: [id number] Acct: [id number] Name: WEST POSADAS Rep #: [id number] : 1960 F 58 From: Baljinder Arzate DO PCP: Charo Swenson DO Status: REG CLI Study: Knee 4 or More Views Date of Exam: 04/28/18 Exam# [id number] Ordering Dr: Charo Swenson DO STUDY: X-RAY - LEFT KNEE REASON [...] Tel , Service support , CC: Charo Swenson DO Business Intelligence Analyst: Signed Charo Swenson Work Phone: Start: 04-21-2018 End: 04-21-2018 Inital Evaluation (1) - PT Comments: See Note; NOTES: [facility] [address] [place] [address] Fax REHABILITATION SERVICES INITIAL EVALUATION MR#: [id number] Acct: [id number] Name: WEST POSADAS Rep #: [id number] : 1960 58 From: Marlene Alonso PT, Cert. MDT Referring Dr.: ROMEO Huffman Status: REG RCR Insurance: [facility] [employer] SELF PAY INSURANCE Patient's Visit Information WEST POSADAS is a 58 year old F referred to Physical Therapy by ROMEO Sellers with a diagnosis of LUMBOSACRAL BACK PAIN. Date of Evaluation: 04/17/18 Physical Therapist: Marlene A Cross - Visit Plan Frequency: 2-3x /Week Duration: 4-6 Weeks Plan: POSTURE CORRECTION/STRENGTHENING, INSTRUCTION IN APPROPRIATE BODY MECHANICS AND ACTIVITY MODIFICATIONS. DLS STARTING WITH A NEUTRAL SPINE PROGRESSING ROM TOLERATED. SUDHA LE ROM, STRETCHING AND STRENGTHENING. HEP INSTRUCTION. 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 INVOLVES A LOT OF WALKING AND GETTING [...] Pain Scale: WORST 7/10, LEAST 2/10. Currently: 09/09. PATIENT REPORTS SHE IS IMPROVING SLOWLY AND [...] WORK IN 2004 TREATED WITH PHYSICAL THERAPY. Coughing/sneezing/straining : POSITIVE. Gait: PATIENT REPORTS SHE CURRENTLY CAN NOT WALK QUICKLY AND SHE LEANS TO THE RIGHT FAVORING LEFT LE. "I'M NOT STRAIGHT UP AND DOWN" PATIENT REPORTS SHE IS ALWAYS LEANING FORWARD. Difficulty initiating urinatin: NO. Accidents: NO. Unexplained weight loss: NO. Imaging: LUMBAR X-RAY 2 DAYS AGO SHOWING DECREASED DISC SPACE L5S1 ADN L4 L5 WITH FACET ARTHROSIS L45 AND L5S1. MILD DEGENERATIVE CHANGES. PMH: UNREMARKABLE. Recent major surgery: UNREMARKABLE. PLOF (Prior Level of Function): UNLIMITED. OTHER: SAW LUIS HUFFMAN YESTERDAY WITH MEDROL DOSE TORI PRESCRIBED AND [...] training, Flexibilty training, Gait and locomotor training, "In an aquatic setting", Active ROM, Dynamic Lumbar Stabilization For the Purpose of:: To decrease pain, To increase ROM, To improve muscle performance and motor function, To improve ability to perform ADL's, To increase tolerance to activity/condition/position , To improve ability of physical actions for home/community/work/leisure , To improve gait and locomotor functions TENS: [...] to be FAXED BACK to us at [phone] for Medicare purposes. Please let me know if there are questions or concerns regarding this plan of care. Physician Signature: Date: <Electronically signed by Marlene Alonso PT, Cert. MDT> 04/21/18 1322 CC: ROMEO Huffman; Charo Swesnon DO WILLIAM Signed For Medicare only, by signing this I certify the plan of care. _ Physicians Signature Date Charo Swenson Start: 04-15-2018 End: 04-15-2018 Chiropractic Report Comments: See Note; NOTES: [facility] [address] [place] [address] OFFICE VISIT Date of Service: 04/15/18 MR#: [id number] Acct: [id number] Name: WEST POSADAS Rep #: [id number] : 1960 Provider: Batsheva Charles D.C. Age/Sex: 58/F Location: [facility] [place] Status: Signed Intake Vital Signs04/15/18 Height 5 [...] Low back pain Visit Number: 4 Details: WEST POSADAS is a 58 year old F who presents with slightly decreased low back pain. She states that her spasms are not as painful. although they are still present. Today West rates her pain a 5/10 and describes it as a deep and sharp ache that bands across the low back, and up into the mid back. Daily living still causes increased pain, although when rolling in bed the pain is not as intense. West denies any numbness, or tingling, Location: low [...] Additional Codes Procedures - Manipulation: 3-4 regions (22688) Procedures - Electrical Stimulation: 15 mins (71116) Procedures - Traction, Mechanical: Yes (06449) 04/15/18 0947 <Electronically signed by Batsheva Charles D.C.> Date Batsheva Charles D.C. Cosigner Signature: Date (if applicable) CC: Charo Swenson Start: 04-14-2018 End: 04-14-2018 Chiropractic Report Comments: See Note; NOTES: [facility] [address] [place] [address] OFFICE VISIT Date of Service: 04/14/18 MR#: [id number] Acct: [id number] Name: WEST POSADAS Rep #: [id number] : 1960 Provider: Batsheva Charles D.C. Age/Sex: 58/F [place] [facility] Status: Signed Intake Vital Signs04/14/18 Height 5 [...] Known Home Medications] 02/19/17 [History Confirmed 02/19/17] PFS Social History Smoking Status: Never smoker HPI low back pain : Chief Complaint: Low back pain Visit Number: 3 Details: WEST POSADAS is a 58 year old F who presents with severe low back pain. She states that last week while working her low back became sore and achy, although Friday she rolled over in bed causing a severe spasm banding across the low back. Today West rates her pain a 7/10 and describes it as a tight sharp ache that bands across the low back, and into the L buttock. Daily living causes increased pain, although laying on the L side causes a slight decrease in pain. West denies any numbness, tingling, or radiculopathy. Onset: [...] Additional Codes Procedures - Manipulation: 3-4 regions (31812) Procedures - Electrical Stimulation: 15 mins (97316) 04/14/18 1546 <Electronically signed by Batsheva Charles D.C.> Date Batsheva Riosigndallas Signature: Date (if applicable) CC: Charo Swenosn Start: 12-08-2017 End: 12-08-2017 Chiropractic Report Comments: See Note; NOTES: [facility] [address] [place] [address] OFFICE VISIT Date of Service: 12/02/17 MR#: [id number] Acct: [id number] Name: WEST POSADAS Rep #: [id number] : 1960 Provider: Batsheva Charles D.C. Age/Sex: 57/F Location[place] [facility] Status: Signed Intake Vital Signs12/02/17 Height 5 [...] low back pain Visit Number: 2 Details: WEST POSADAS is a 57 year old F [...] Additional Codes Procedures - Manipulation: 3-4 regions (29544) Procedures - Electrical Stimulation: 15 mins (90385) Procedures - Traction, Mechanical: Yes (85420) 12/08/17 1119 <Electronically signed by Batsheva Charles D.C.> Date Batsheva Charles D.C. Cosigner Signature: Date (if applicable) CC: Charo Swenson Start: 07-22-2017 End: 07-22-2017 Chiropractic Report Comments: See Note; NOTES: [employer] [address] [place] [address] OFFICE VISIT Date of Service: 07/21/17 MR#: [id number] Acct: [id number] Name: WEST POSADAS Rep #: [id number] : 1960 Provider: Batsheva Charles D.C. Age/Sex: 57/F [place] [facility] Status: Signed Intake Vital Signs07/21/17 Height 5 [...] Number: 1 Referral source: previous patient Details: WEST POSADAS is a 57 year old F who presents with L sided neck and low back pain. 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 Today the patient rates her pain a 3/10 and describes it as a deep tight ache that comes and goes, bending lifting, twisting and reaching all cause increased pain. West denies any numbness or tingling. Location: L [...] Codes Procedures - Electrical Stimulation: 15 mins (10733) Procedures - Manipulation: 3-4 regions (34446) Procedures - Traction, Mechanical: Yes (27638) 07/22/17 1310 <Electronically signed by Batsheva Charles D.C.> Date Batsheva Charles D.C. Cosigner Signature: Date (if applicable) CC: Charo Swenson Start: 02-20-2017 End: 02-20-2017 Operative Report Comments: See Note; NOTES: [facility] Medical Records Department [address] [place] [address] Operative Report 02/20/17 0841 MR#: [id number] Acct: [id number] Name: WEST POSADAS Rep #: [id number] : 1960 56 From: Jeffry Alva MD PCP: Charo Swenson DO Status: REG CLI Y Location: [place] [address] Operative Report Date of Procedure: 02/20/17 Preop diagnosis: [Patient for screening colonoscopy] Postop diagnosis: [Colonoscopy with snare polypectomy performed] Anesthesia: Provided the MAC] Instrument:[Olympus adjustable pediatric colonoscope] Informed consent was taken prior to procedure. The patient was brought to the endoscopy suite and placed in the left shoulder down. Anesthesia provided the MAC. Rectal exam was performed prior to inserting the scope. The colonoscope was passed into the rectum rectal mucosa was normal. Moving up the left colon vascular pattern of the mucosa was normal, across the transverse colon mucosa was normal. Down the right colon cecum was well-visualized patient had an excellent preparation there were no obvious large polyps in the right colon. Backup near the hepatic flexure was a sessile polyp using hot snare the patient was grounded the polyp was transected and sucked up into the colonoscope. The scope was withdrawn across the transverse colon there were no large polyps seen. Below the splenic flexure into the left colon there were no large polyps noted. Retroflexion performed the rectum showed internal hemorrhoids the colon was decompressed and the patient tolerated procedure well. Impression: Screening colonoscopy 1 polyp removed via hot snare. Plan: Follow-up the pathology of the polyp repeat a colonoscopy in 5 years CC: Dr. Charo Swenson 02/20/17 0845 <Electronically signed by Jeffry Alva MD> Date Jeffry Alva MD CC: Charo Swenson DO; Jeffry Alva Signed Charo Swenson Start: 09-20-2016 End: 09-20-2016 SCREENING MAMM (CAD), BILAT Comments: See Note; NOTES: [facility] Imaging Services [address] [place] [address] Verdana 4d SCREENING MAMM (CAD), BILAT MR#: [id number] Acct: [id number] Name: WEST POSADAS Rep #: [id number] : 1960 F 56 From: Vadim Wei MD PCP: Charo Swenson DO Status: [facility] Study: SCREENING MAMM (CAD), BILAT Date of Exam: 09/20/16 Exam# [id number] Ordering Dr: Maryana Santamaria MD MAMMOGRAPHY - BILATERAL SCREENING REASON FOR EXAM: Female, 56 years old. Routine annual screening examination. PERTINENT HISTORY: Non-contributory. TECHNIQUE: Digital bilateral breast wenceslao (3D mammographic acquisition) in the CC and MLO projections. 2-D mediolateral oblique (MLO) and craniocaudad (CC) views of both breasts were obtained. CAD: Full Field Digital Mammography with Computer Added Detection was performed. COMPARISON: Comparison is made with prior study dated September 07, 2014 and November 04, 2012. FINDINGS: Breast Composition: The breasts are heterogeneously dense, which may obscure small masses. There are no dominant masses or suspicious calcifications. No other significant abnormalities are identified. There has been no significant change since the prior study. HPBI/SCREENING MAMM (CAD), BILAT IMPRESSION: Stable bilateral screening mammogram. Yearly follow-up mammogram recommended. (A) ASSESSMENT CATEGORY: BIRADS Category 1: Negative. A letter regarding these results will be sent to the patient by the facility within 30 days. Approximately 10% of breast cancers are not detected by mammography. A normal mammogram should not delay biopsy of a clinically suspicious abnormality. [id number] Electronically Signed: Vadim Wei MD at 15:50 EDT Tel [phone], Service support , CC: Maryana Santamaria MD; Charo Swenson DO Business Intelligence Analyst: Signed Maryana Santamaria Work Phone: Start: 09-04-2016 End: 09-04-2016 Abdomen Limited Comments: See Note; NOTES: [facility] Imaging Services [address] [place] [address] Verdana 4d Abdomen Limited MR#: [id number] Acct: [id number] Name: WEST POSADAS Rep #: [id number] : 1960 F 56 From: Vadim Wei MD PCP: Charo Swenson DO Status: REG CLI Study: Abdomen Limited Date of Exam: 09/04/16 Exam# [id number] Ordering Dr: Charo Swenson DO STUDY: ABDOMINAL ULTRASOUND - RIGHT UPPER QUADRANT REASON FOR VISIT: Female, 56 years old. Acute abdominal pain. TECHNIQUE: Ultrasound evaluation of the right upper quadrant was performed with real-time and static meyers-scale imaging. TECHNICAL QUALITY: Adequate. COMPARISON: None. FINDINGS: Liver: The liver is enlarged and measures 18.5 cm. There is increased echogenicity consistent with fatty infiltration. Focal fatty sparing is seen in the periportal region. The bile ducts are within normal limits. There is hepatic color flow. The direction of portal flow is hepatopetal. There is no demonstrated mass lesion. Gallbladder: The patient is status post cholecystectomy. Common Bile Duct (C.B.D.): The common bile duct measures 2.7 mm. Pancreas: Normal size of the head, body and tail of the pancreas. Heterogeneous echotexture of the pancreas. There is no demonstrated pancreatic mass or cyst. Right Kidney: Normal size of the right kidney. The right kidney measures 12.5 cm x 5.8 cm x 4.8 cm. Normal renal cortex. The right cortex measures 1.5 cm. There is no demonstrated renal mass or cyst. There is no right hydronephrosis. US/Abdomen Limited IMPRESSION: Hepatomegaly and fatty infiltration of the liver. Focal fatty sparing in the periportal region. Right renal cyst. Electronically Signed: Vadim Wei MD at 10:36 EDT Tel [phone], Service support [phone], CC: Charo Swenson DO Business Intelligence Analyst: Signed Charo Swenson Work Phone: Start: 11-20-2014 End: 11-20-2014 Discharge Instruction Comments: See Note; NOTES: [facility] Medical Records Department [address] [place] [address] Discharge Instruction 11/15/14 1350 MR#: [id number] Acct: [id number] Name: WEST POSADAS Rep #: [id number] : 1960 54 From: Geoff Portillo MD PCP: Charo Swenson DO Status: DEP ER ED Disposition - Plan for ED Patient: Chief Complaint: Abd Pain Instructions: ED Abdominal Pain, Unknown Cause, (Female) Prescriptions: Hydrocodone Bitart/Apap 5-325 [Central [place] 5/325] 1 - 2 tablet PO Q4H PRN PRN #20 tablet PRN Reason: Pain Ondansetron [Zofran Odt] 4 mg PO Q8H PRN PRN #10 tablet PRN Reason: Nausea Referrals: Charo Swenson DO [Primary Care Provider] - 1-2 Days if not improving What to do if you have Problems For any increased pain, shortness of breath, bleeding, nausea or vomiting, chest pain, or any unexpected problems, contact your doctor. Call [facility] ([phone]) or report to the closest Emergency Room. Call 911 if necessary. 11/20/14 0051 <Electronically signed by Geoff Portillo MD> Date Geoff Portillo MD Cosigner Signature (If Indicated): Date CC: Charo Contreras Start: 11-20-2014 End: 11-20-2014 Emergency Department Summary Comments: See Note; NOTES: [facility] Medical Records Department [address] [place] [address] [place] [address] Emergency Department Summary MR#: [id number] Acct: [id number] Name: WEST POSADAS Rep #: [id number] : 1960 54 From: Geoff Portillo MD PCP: Charo Swenson DO Status: DEP ER DATE OF SERVICE: 11/15/2014 METHOD OF ARRIVAL: Private car. CHIEF COMPLAINT: Abdominal pain. HISTORY OF PRESENT ILLNESS: A 54-year-old female patient of Dr. Swenson reports she has left lower quadrant abdominal pain that began 3 days ago. It is a constant aching pain that is worsened by movement or stretching. It is 6/10 in severity at worst. It is relieved by nothing. She denies any nausea or vomiting, but reports she has had a poor appetite. No diarrhea. No melena, hematochezia. No dysuria or frequency. No fever, chills, back pain or other complaints. PHYSICAL EXAMINATION: GENERAL: Reveals alert woman in no acute distress. VITAL SIGNS: 97.3, 153/63, 79 and 14. ABDOMEN: Significant physical exam findings include the abdominal exam, which shows her to have moderate left lower quadrant tenderness. Abdomen is soft. No guarding, rebound or peritoneal signs. BACK: Shows no CVA tenderness. Remainder of the physical exam is unremarkable. Please see T-sheet for details. TEST RESULTS: The patient had a CBC that was normal. Chem-7 was normal. UA that shows blood and a CT of the flank that shows no acute disease. Does have an incidental finding 2 x 1.6 cm left adrenal adenoma. EMERGENCY DEPARTMENT COURSE: The patient treated with ibuprofen. TREATMENT PLAN: The patient will be discharged with prescription for Central Square and instructed to follow up with Dr. Swenson in 2 days if not improving. DISPOSITION: Home, stable condition. IMPRESSION: Abdominal pain, uncertain cause. Geoff Portillo MD C C: Charo Swenson DO T: NTS JOB: [id number] 11/20/14 0051 <Electronically signed by Geoff Portillo MD> Date Geoff Portillo MD CC: Charo Swenson DO Date Dictated: 11/15/141721 Date Transcribed: 11/15/141721 Business Intelligence Analyst: Signed Charo Swenson Start: 11-15-2014 End: 11-15-2014 Abdomen/Pelvis without Cont Comments: See Note; NOTES: [facility] Imaging Services [address] [place], [place] [address] [address] CAT Scan Report MR#: [id number] Acct: [id number] Name: WEST POSADAS Rep #: [id number] : 1960 F 54 From: Vadim Wei MD PCP: Charo Swenson DO Status: [facility] ER Study: Abdomen/Pelvis without Cont Date of Exam: 11/15/14 Exam# [id number] Ordering Dr: Geoff Portillo MD STUDY: CT ABDOMEN AND PELVIS WITHOUT CONTRAST REASON FOR EXAM: Female, 54 years old. 3 day history of left upper quadrant and left lower quadrant pain. RADIATION DOSAGE (If Supplied By Facility): CTDIvol = ( 23.78 ) mGy, DLP = ( 1160.02 ) mGycm TECHNIQUE: Transaxial images were obtained from the dome of the diaphragm to the symphysis pubis without oral contrast, and without intravenous contrast. Sagittal and coronal images were reconstructed. COMPARISON: None. FINDINGS: The visualized lung bases are unremarkable. The visualized portions of the heart are within normal limits. There is decreased attenuation of the liver consistent with steatosis. The patient is status post cholecystectomy. Normal spleen. Normal pancreas. There is a small, circumscribed, smooth, low attenuation left adrenal mass, consistent with an adrenal adenoma. It measures 2 cm x 1.6 cm. Normal right adrenal gland. Normal right kidney. Normal left kidney. Normal visualized stomach. Normal small intestine. Normal colon. The patient is status post appendectomy. Normal abdominal aorta. Normal inferior vena cava. Normal retroperitoneum. Normal urinary bladder. Phleboliths are seen in the pelvis. Normal abdominal wall. Normal osseous structures. IMPRESSION: 2 cm x 1.6 cm hypodense nodule in the left adrenal gland suggestive of adenoma. Electronically Signed: Vadim Wei MD at 13:19 EDT Tel [phone], Service support [phone], CC: Charo Swenson DO; Geoff Portillo MD Business Intelligence Analyst: Signed Charo Swenson Start: 09-07-2014 End: 09-08-2014 Naresh Pierce Digital AND CAD Comments: See Note; NOTES: [facility] Imaging Services [address] [place] [address] Breast Imaging Report MR#: [id number] Acct: [id number] Name: WEST POSADAS Rep #: [id number] : 1960 F 54 From: Charli Aranda DO PCP: Charo Swenson DO Status: REG CLI Study: Naresh Pierce Digital AND CAD Date of Exam: 09/07/14 Exam# [id number] Ordering Dr: Maryana Santamaria MD MAMMOGRAPHY - BILATERAL SCREENING REASON FOR EXAM: Female, 54 years old. Routine annual screening examination. PERTINENT HISTORY: Non-contributory. TECHNIQUE: Digital examination. Mediolateral oblique (MLO) and craniocaudad (CC) views of both breasts were obtained. CAD: CAD was performed on this study. COMPARISON: November 04, 2012 and July 17, 2010. FINDINGS: Breast Composition: There are no dominant masses or suspicious calcifications. No other significant abnormalities are identified. IMPRESSION: Stable bilateral screening mammogram. Yearly follow-up recommended. (A) ASSESSMENT CATEGORY: BIRADS Category 2: Benign. A letter regarding these results will be sent to the patient by the facility within 30 days. Approximately 10% of breast cancers are not detected by mammography. A normal mammogram should not delay biopsy of a clinically suspicious abnormality. Electronically Signed: Charli Aranda DO at 14:36 EDT Tel [phone], Service support [phone], CC: Maryana Santamaria MD; Charo Swenson DO Business Intelligence Analyst: Signed Di Christensen Work Phone: Start: 06-02-2009 Cholecystectomy MICHELLE ALEXNURIS INTERNAL CONTROLS ANALYST-GATE KEEPER Start: 06-02-1992 Appendectomy MICHELLE ALEXNURIS INTERNAL CONTROLS ANALYST-GATE KEEPER Appendectomy Jackie Slarb Appendectomy Brice Duran Appendectomy Elvie Glendyk Appendectomy Hattie Gravius WEB DESIGN SPECIALIST Appendectomy Hattie Gravius WEB DESIGN SPECIALIST Appendectomy Brice Shade LP N Appendectomy Brice Shade LP N Appendectomy Jackie Slarb LP N Appendectomy Kayela Leti WEB DESIGN SPECIALIST Appendectomy Kayela Leti WEB DESIGN SPECIALIST Appendectomy Kayela Shirley WEB DESIGN SPECIALIST Appendectomy González [place] LP N Colonoscopy MICHELLE LIEN INTERNAL CONTROLS ANALYST-GATE KEEPER Dilation and curetta ge of uterus MICHELLE LIEN INTERNAL CONTROLS ANALYST-GATE KEEPER Gallbladder Surgery Jackie luz Comment on above: 2011 Gallbladder Surgery Brice cherry Comment on above: 2011 History of appendectomy Appendectomy Bessie sea Manchak [facility] Comment on above: 1993 History of appendectomy Appendectomy Jasm in Gravius WEB DESIGN SPECIALIST Comment on above: 1993 History of appendectomy Appendectomy Jasm in Gravius WEB DESIGN SPECIALIST Comment on above: 1993 History of appendectomy Appendectomy Tyg an Shade GENERAL WAREHOUSE ASSOCIATE Comment on above: 1993 History of appendectomy Appendectomy Tyg an Shade GENERAL WAREHOUSE ASSOCIATE Comment on above: 1993 History of appendectomy Appendectomy Olamide la Slarb GENERAL WAREHOUSE ASSOCIATE Comment on above: 1993 History of appendectomy Appendectomy Susana la Leti [facility] Comment on above: 1993 History of appendectomy Appendectomy Susana la Shirley [facility] Comment on above: 1993 History of appendectomy Appendectomy Susana la [facility] Comment on above: 1993 History of appendectomy Dako ta [place] GENERAL WAREHOUSE ASSOCIATE Operation on gallbladder Maki lsea Manchak Comment on above: 2011 Operation on gallbladder Mark min Gravius WEB DESIGN SPECIALIST Comment on above: 2011 Operation on gallbladder Mark min Gravius WEB DESIGN SPECIALIST Comment on above: 2011 Operation on gallbladder Mor yin Shade GENERAL WAREHOUSE ASSOCIATE Comment on above: 2011 Operation on gallbladder Mor yin Shade GENERAL WAREHOUSE ASSOCIATE Comment on above: 2011 Operation on gallbladder Ang wilmar Slarb GENERAL WAREHOUSE ASSOCIATE Comment on above: 2011 Operation on gallbladder Nellie wilmar Shirley [facility] Comment on above: 2011 Operation on gallbladder Nellie wilmar Shirley [facility] Comment on above: 2011 Operation on gallbladder Nellie wilmar Shirley WEB DESIGN SPECIALIST Comment on above: 2011 Operation on gallbladder Dak yenny [place] GENERAL WAREHOUSE ASSOCIATE port placement for chemo Mark min Gravius WEB DESIGN SPECIALIST Comment on above: going fridayfeb 19 for replacement port placement for chemo Mark min Gravius WEB DESIGN SPECIALIST Comment on above: going fridayfeb 19 for replacement port placement for chemo Mor yin Shade GENERAL WAREHOUSE ASSOCIATE Comment on above: going fridayfeb 19 for replacement port placement for chemo Mor yin Shade GENERAL WAREHOUSE ASSOCIATE Comment on above: going fridayfeb 19 for replacement port placement for chemo Ang wilmar Slarb GENERAL WAREHOUSE ASSOCIATE Comment on above: going fridayfeb 19 for replacement port placement for chemo Nellie wilmar Shirley WEB DESIGN SPECIALIST Comment on above: going fridayfeb 19 for replacement port placement for chemo Nellie wilmar Leti WEB DESIGN SPECIALIST Comment on above: going fridayfeb 19 for replacement port placement for chemo Nellie wilmar Leti WEB DESIGN SPECIALIST Comment on above: going fridayfeb 19 for replacement Tonsillectomy MICHELLE EMMANUEL INTERNAL CONTROLS ANALYST-GATE KEEPER Total hysterectomy Hattie Gr avius WEB DESIGN SPECIALIST Comment on above: dr.christina cuellar and dr elisha mina -- september 2020 Total hysterectomy Hattie Gr avius WEB DESIGN SPECIALIST Comment on above: dr.christina cuellar and dr elisha mina -- september 2020 Total hysterectomy Brice Da vis GENERAL WAREHOUSE ASSOCIATE Comment on above: dr.christina cuellar and dr elisha mina -- september 2020 Total hysterectomy Brice Da vis GENERAL WAREHOUSE ASSOCIATE Comment on above: dr.christina cuellar and dr elisha mina -- september 2020 Total hysterectomy Jackie Sl arb GENERAL WAREHOUSE ASSOCIATE Comment on above: dr.christina cuellar and dr elisha mina -- september 2020 Total hysterectomy Kayela Ra dford WEB DESIGN SPECIALIST Comment on above: dr.christina cuellar and dr elisha mina -- september 2020 Total hysterectomy Kayela Ra dford WEB DESIGN SPECIALIST Comment on above: dr.christina cuellar and dr elisha mina -- september 2020 Total hysterectomy Kayela Ra dford WEB DESIGN SPECIALIST Comment on above: dr.christina cuellar and dr elisha mina -- september 2020 Total hysterectomy González Pr yor GENERAL WAREHOUSE ASSOCIATE Kayela Shirley WEB DESIGN SPECIALIST González C[facility]ar LP N Plan of Treatment Date Care Activity Detail Author Start: 07-07-[address] [facility] Work Phone: Start: 03-26-2023 Procedure Education [facility]; [facility] Work Phone: Start: 03-26-2023 Provider Instructions for Treatment [facility]; [facility] Work Phone: Start: 03-26-2023 25 hydroxy includes fractions if performed [facility]; [facility] Work Phone: Start: 03-26-2023 Cyclic citrullinated peptide antibody [facility]; [facility] Work Phone: Start: 03-26-2023 Sedimentation rate rbc non-automated [facility]; [facility] Work Phone: Start: 03-26-2023 C-reactive protein [facility] Work Phone: Start: 03-26-2023 Assay of thyroid stimulating hormone tsh [facility]; [facility] Work Phone: Start: 03-26-2023 Rheumatoid factor quantitative [facility]; [facility] Work Phone: Start: 03-26-2023 Antinuclear antibodies jazzy [facility]; [facility] Work Phone: Start: 03-26-2023 Hemoglobin glycosylated a1c [facility]; [facility] Work Phone: Start: 2023 Venous catheter care management [facility] Start: 10-01-[address] [facility] Work Phone: Start: 09-18-2022 Procedure Education [facility]; [facility] Work Phone: Start: 09-02-2022 Procedure Education [facility]; [facility] Work Phone: Start: 09-02-2022 Provider Instructions for Treatment [facility]; [facility] Work Phone: Start: 08-26-2022 Procedure Education [facility]; [facility] Work Phone: Start: 08-26-2022 Provider Instructions for Treatment [facility]; [facility] Work Phone: Start: 08-21-2022 INHOUSE COVID 19 (ONLY) RAPID ([id number]) [facility]; [facility] Work Phone: Start: 08-21-2022 Procedure Education [facility]; [facility] Work Phone: Start: 08-21-2022 Provider Instructions for Treatment [facility]; [facility] Work Phone: Start: 07-12-2022 Patient Education [facility]; [facility] Work Phone: Start: 07-12-2022 Procedure Education [facility]; [facility] Work Phone: Start: 07-12-2022 Provider Instructions for Treatment [facility]; [facility] Work Phone: Start: 07-09-2022 Therapeutic prophylactic/dx injection subq/im THER/PROPH/DIAG INJ SC/IM [facility] Start: 04-11-2022 Procedure Education [facility]; [facility] Work Phone: Start: 02-28-2022 Procedure Education [facility]; [facility] Work Phone: Start: 02-28-2022 Provider Instructions for Treatment [facility]; [facility] Work Phone: Start: 02-28-2022 Hemoglobin glycosylated a1c [facility]; [facility] Work Phone: Start: 09-28-2021 Procedure Education [facility]; [facility] Work Phone: Start: 09-28-2021 Provider Instructions for Treatment [facility]; [facility] Work Phone: Start: 09-28-2021 Hemoglobin glycosylated a1c [facility]; [facility] Work Phone: Start: 09-28-2021 Assay of thyroid stimulating hormone tsh [facility]; [facility] Work Phone: Start: 09-28-2021 Urnls dip stick/tablet reagent auto microscopy [facility]; [facility] Work Phone: Start: 09-28-2021 Urine albumin quantitative [facility]; [facility] Work Phone: Start: 09-28-2021 Comprehensive metabolic panel [facility]; [facility] Work Phone: Start: 09-28-2021 Lipid panel [facility]; [facility] Work Phone: Start: 09-28-2021 Blood count complete auto&auto difrntl wbc [facility]; [facility] Work Phone: Start: 02-08-2021 Procedure Education [facility]; [facility] Work Phone: Start: 02-08-2021 Provider Instructions for Treatment [facility]; [facility] Work Phone: Start: 09-11-2020 Procedure Education [facility]; [facility] Work Phone: Start: 02-23-2020 Procedure Education [facility] Work Phone: Start: 02-23-2020 Provider Instructions for Treatment [facility] Work Phone: Start: 01-12-2020 Urinalysis qual/semiquant except immunoassays [facility] Work Phone: Start: 01-12-2020 Culture bct isol&prsmptv id isolate ea urine [facility] Work Phone: Start: 09-17-2019 Procedure Education [facility] Work Phone: Start: 06-23-2019 Procedure Education [facility] Work Phone: Start: 06-23-2019 Provider Instructions for Treatment [facility] Work Phone: Start: 06-23-2019 Assay of thyroid stimulating hormone tsh [facility]; [facility] Work Phone: Start: 06-23-2019 TSH Qn TSH (03381) [facility] Work Phone: Start: 06-23-2019 Urnls dip stick/tablet reagent auto microscopy [facility] Work Phone: Start: 06-23-2019 Urine albumin quantitative [facility] Work Phone: Start: 06-23-2019 Comprehensive metabolic panel [facility] Work Phone: Start: 06-23-2019 Blood count complete auto&auto difrntl wbc [facility] Work Phone: Start: 06-23-2019 Lipid panel [facility] Work Phone: Start: 04-13-2019 Comprehensive metabolic panel [facility] Work Phone: Start: 03-09-2019 Procedure Education [facility] Work Phone: Start: 03-09-2019 Provider Instructions for Treatment [facility] Work Phone: Start: 02-25-2019 Procedure Education [facility] Work Phone: Start: 02-25-2019 Provider Instructions for Treatment [facility] Work Phone: Start: 02-23-2019 Procedure Education [facility] Work Phone: Start: 02-23-2019 Provider Instructions for Treatment [facility] Work Phone: Start: 02-12-2019 Assay of thyroid stimulating hormone tsh [facility]; [facility] Work Phone: Start: 02-12-2019 TSH Qn TSH (THYROID STIMULATING HORMONE) (35119) [facility] Work Phone: Start: 02-12-2019 HbA1c (Bld) [Mass fraction] HGB A1C (51569) [facility] Work Phone: Start: 02-12-2019 Hemoglobin glycosylated a1c [facility]; [facility] Work Phone: Start: 02-12-2019 Lipoprotein blood kenia numbers & subclasses [facility] Work Phone: Start: 02-12-2019 Urinalysis qual/semiquant except immunoassays [facility] Work Phone: Start: 02-12-2019 Urine albumin quantitative [facility] Work Phone: Start: 02-12-2019 Blood count manual cell count each [facility] Work Phone: Start: 02-12-2019 Comprehensive metabolic panel [facility] Work Phone: Start: 01-29-2019 Provider Instructions for Treatment [facility] Work Phone: Start: 09-24-2018 Procedure Education [facility] Work Phone: Start: 09-24-2018 Provider Instructions for Treatment [facility] Work Phone: Start: 06-18-2018 Procedure Education [facility] Work Phone: Start: 06-18-2018 Provider Instructions for Treatment [facility] Work Phone: Start: 04-16-2018 Patient Education [facility] Work Phone: Start: 04-16-2018 Procedure Education [facility] Work Phone: Start: 04-16-2018 Provider Instructions for Treatment [facility] Work Phone: Start: 02-26-2018 Provider Instructions for Treatment [facility] Work Phone: Start: 02-26-2018 Urinalysis qual/semiquant except immunoassays [facility] Work Phone: Start: 12-18-2017 Hemoglobin A1c/Hemoglobin.total mass fraction (Bld) HGB A1C (06393) [facility] Work Phone: Start: 12-18-2017 Hemoglobin glycosylated a1c [facility]; [facility] Work Phone: Start: 02-27-2017 Hemoglobin A1c/Hemoglobin.total mass fraction (Bld) HGB A1C (26931) [facility] Work Phone: Start: 02-27-2017 Hemoglobin glycosylated a1c [facility]; [facility] Work Phone: Start: 02-27-2017 Provider Instructions for Treatment [facility] Work Phone: Start: 09-06-2016 Provider Instructions for Treatment [facility] Work Phone: Start: 05-08-2016 Provider Instructions for Treatment [facility] Work Phone: Start: 04-23-2016 Procedure Education [facility] Work Phone: Start: 04-23-2016 Provider Instructions for Treatment [facility] Work Phone: Start: 04-23-2016 Sedimentation rate rbc non-automated [facility] Work Phone: Start: 04-23-2016 Comprehensive metabolic panel [facility] Work Phone: Start: 04-23-2016 Blood count complete auto&auto difrntl wbc [facility] Work Phone: Start: 02-26-2016 Hemoglobin A1c/Hemoglobin.total mass fraction (Bld) HGB A1C (60921) [facility] Work Phone: Start: 02-26-2016 Hemoglobin glycosylated a1c [facility]; [facility] Work Phone: Start: 02-26-2016 Provider Instructions for Treatment [facility] Work Phone: Start: 03-01-2015 Provider Instructions for Treatment [facility] Work Phone: Start: 03-01-2015 Culture bct isol&prsmptv id isolate ea urine [facility] Work Phone: Start: 02-17-2014 Provider Instructions for Treatment [facility] Work Phone: Start: 12-02-2013 Procedure Education [facility] Work Phone: Start: 12-02-2013 Provider Instructions for Treatment [facility] Work Phone: Start: 12-02-2013 Assay of thyroid stimulating hormone tsh [facility]; [facility] Work Phone: Start: 12-02-2013 Thyrotropin Qn TSH (84754) [facility] Work Phone: Start: 12-02-2013 Urnls dip stick/tablet reagent auto microscopy [facility] Work Phone: Start: 12-02-2013 Urine albumin quantitative [facility] Work Phone: Start: 12-02-2013 Comprehensive metabolic panel [facility] Work Phone: Start: 12-02-2013 Lipid panel [facility] Work Phone: Start: 12-02-2013 Blood count manual cell count each [facility] Work Phone: Start: 12-02-2013 Hemoglobin A1c/Hemoglobin.total mass fraction (Bld) HgA1C , Office (97721) [facility] Work Phone: Start: 12-02-2013 Hemoglobin glycosylated a1c [facility]; [facility] Work Phone: Start: 02-18-2013 Provider Instructions for Treatment [facility] Work Phone: Start: 09-23-2012 Assay of thyroid stimulating hormone tsh [facility]; [facility] Work Phone: Start: 09-23-2012 Thyrotropin Qn TSH (35640) [facility] Work Phone: Start: 09-23-2012 Urnls dip stick/tablet reagent auto microscopy [facility] Work Phone: Start: 09-23-2012 Urine albumin quantitative [facility] Work Phone: Start: 09-23-2012 Comprehensive metabolic panel [facility] Work Phone: Start: 09-23-2012 Lipid panel [facility] Work Phone: Start: 09-23-2012 Blood count manual cell count each [facility] Work Phone: Start: 09-23-2012 Patient Education [facility] Work Phone: Start: 09-23-2012 Provider Instructions for Treatment [facility] Work Phone: Start: 02-13-2012 Patient Education [facility] Work Phone: Start: 02-13-2012 Provider Instructions for Treatment [facility] Work Phone: Start: 02-13-2012 Culture bct isol&prsmptv id isolate ea urine [facility] Work Phone: Start: 02-13-2012 Urnls dip stick/tablet reagent auto microscopy [facility] Work Phone: Start: 01-08-2012 Provider Instructions for Treatment [facility] Work Phone: Start: 01-22-2010 Blood count complete automated [facility] Work Phone: Start: 01-22-2010 Hepatic function panel [facility] Work Phone: Start: 01-22-2010 Provider Instructions for Treatment [facility] Work Phone: Start: 08-24-2008 Urine albumin quantitative [facility] Work Phone: Start: 08-24-2008 Lipoprotein blood kenia numbers & subclasses [facility]; [facility] Work Phone: Start: 08-24-2008 Protein mass conc LIPOPROTEIN, BLD, BY NMR (78148) [facility] Work Phone: Start: 08-24-2008 Lipid panel [facility] Work Phone: Start: 08-24-2008 Antinuclear antibodies jazzy [facility]; [facility] Work Phone: Start: 08-24-2008 Assay of folic acid serum [facility] Work Phone: Start: 08-24-2008 C-reactive protein [facility]; [facility] Work Phone: Start: 08-24-2008 Cobalamin (Vitamin B12) mass conc VITAMIN B-12 (CYANOCOBALAMIN) (81182) [facility] Work Phone: Start: 08-24-2008 Comprehensive metabolic panel [facility] Work Phone: Start: 08-24-2008 CRP mass conc C-REACTIVE PROTEIN (55109) [facility] Work Phone: Start: 08-24-2008 Cyanocobalamin vitamin b-12 [facility]; [facility] Work Phone: Start: 08-24-2008 Nuclear Ab IF titer (S) JAZZY (ANTINUCLEAR ANTIBODY) (92471) [facility] Work Phone: Start: 08-24-2008 Rheumatoid factor quantitative [facility] Work Phone: Start: 08-24-2008 Sedimentation rate rbc non-automated [facility] Work Phone: Start: 08-24-2008 Provider Instructions for Treatment [facility] Work Phone: Cancer Ag 125 [Units/volume] in Serum or Plasma [facility] Cancer Ag 125 [Units/volume] in Serum or Plasma [facility] Patient referral [facility] Work Phone: [facility] Work [facility]: [facility] Work Phone: [facility] Work Phone: [facility] Work Phone: [facility] Work [facility] Work [facility] Work Phone: [facility] Work Phone: [facility] Work Phone: [facility] Work [facility] Work Phone: [facility] Work Phone: [facility] Work Phone: [facility] Work Phone: [facility] Work Phone: [facility] Work Phone: [facility] Work Phone[facility] Work [facility] Work Phone[facility] Work Phone: [facility] Work Phone: [facility] Work Phone: [facility] Work Phone: [facility] Work Phone: [facility] Work Phone: [facility] Work Phone: [facility] Work Phone: [facility] Work Phone: [facility]; [facility] Work Phone: [facility] Work Phone: [facility] Immunizations Immunization Date Immunization Notes Care Provider [facility] 04-28-2024 influenza, seasonal, injectable, preservative free Dr. Charo Swenson DO Work Phone: [facility] 04-07-2023 influenza, injectabl e, quadrivalent, preservative free Dr. Charo Swenson Work Phone: [facility] 04-22-2022 influenza, injectabl e, quadrivalent, preservative free [facility] 04-22-2022 influenza, seasonal, injectable Dr. Charo Swenson Work Phone: [facility] 04-12-2021 influenza, injectabl e, quadrivalent, preservative free [facility] 04-12-2021 influenza, seasonal, injectable Dr. Charo Swenson Work Phone: [facility] 01-19-2021 COVID-Moderna (100 MCG/0.5 ML) Charo Swenson DO Work Phone: [facility]; [facility] Work Phone: 04-06-2020 influenza, injectabl e, quadrivalent, preservative free [facility] 04-06-2020 influenza, seasonal, injectable Dr. Charo Swenson Work Phone: [facility] 04-27-2019 influenza, injectabl e, quadrivalent, preservative free [facility] 04-27-2019 influenza, seasonal, injectable Dr. Charo Swenson Work Phone: [facility] 02-27-2018 influenza, injectabl e, quadrivalent, preservative free [facility] 02-27-2018 influenza, seasonal, injectable Dr. Charo Swenson Work Phone: [facility] 04-30-2017 influenza, injectabl e, quadrivalent, preservative free [facility] 04-30-2017 influenza, seasonal, injectable Dr. Charo Swenson Work Phone: [facility] 03-01-2016 influenza, injectabl e, quadrivalent, preservative free [facility] 03-01-2016 influenza, seasonal, injectable Dr. Charo Swenson Work Phone: [facility] 03-29-2015 influenza, injectabl e, quadrivalent, preservative free [facility] 03-29-2015 influenza, seasonal, injectable Dr. Charo Swenson Work Phone: [facility] 02-16-2014 influenza, injectabl e, quadrivalent, preservative free [facility] 02-16-2014 influenza, seasonal, injectable Dr. Charo Swenson Work Phone: [facility] Payers Date Payer Category Payer Private Health Insurance [id number] 2024 Self-pay [id number] 2022 Unknown [id number] 2021 Unknown [id number] 2008 Unknown [id number] 1961 Unknown [id number] 2.16.84 0.1.832297.3.579.2.716 1961 Unknown [id number] 2.16.8 40.1.469610.3.579.2.627 1961 Unknown [id number] 2.16.8 40.1.507891.3.579.2.627 1961 Unknown [id number] 2.16.8 40.1.336234.3.579.2.627 1961 Unknown [id number] 2.16. 840.1.782208.3.579.2.627 1961 Unknown [id number] 2.16. 840.1.150701.3.579.2.627 1961 Unknown [id number] 2.16. 840.1.487913.3.579.2.627 1961 Unknown [id number] 2.16.8 40.1.930232.3.579.2.627 Unknown Unknown [id number] 2.16.8 40.1.636912.3.579.2.462 Unknown [id number] 2.16.8 40.1.935556.3.579.2.462 Unknown [id number] 2.16.8 40.1.686457.3.579.2.462 Unknown [id number] 2.16.8 40.1.674721.3.579.2.462 Unknown [id number] 2.16.8 40.1.500032.3.579.2.462 Unknown [id number] 2.16.8 40.1.855656.3.579.2.462 Unknown [id number] 2.16.8 40.1.858453.3.579.2.462 Unknown [id number] 2.16.8 40.1.710153.3.579.2.462 Unknown [id number] 2.16.8 40.1.005039.3.579.2.462 Unknown [id number] 2.16.8 40.1.233166.3.579.2.462 Unknown [id number] 2.16.8 40.1.891696.3.579.2.462 Unknown [id number] 2.16.8 40.1.422410.3.579.2.462 Unknown [id number] 2.16.8 40.1.912369.3.579.2.462 Unknown [id number] 2.16.8 40.1.369549.3.579.2.462 Unknown [id number] 2.16.8 40.1.476161.3.579.2.462 Unknown [id number] 2.16.8 40.1.784503.3.579.2.462 Unknown [id number] 2.16.8 40.1.399751.3.579.2.462 Unknown [id number] 2.16.8 40.1.445653.3.579.2.462 Unknown [id number] 2.16.8 40.1.417101.3.579.2.462 Unknown [id number] 2.16.8 40.1.046332.3.579.2.462 Unknown [id number] 2.16.8 40.1.447919.3.579.2.462 Unknown [id number] 2.16.8 40.1.139398.3.579.2.462 Unknown [id number] 2.16.8 40.1.974121.3.579.2.462 Unknown [id number] 2.16.8 40.1.962108.3.579.2.462 Unknown [id number] 2.16.8 40.1.444839.3.579.2.462 Unknown [id number] 2.16.8 40.1.589580.3.579.2.462 Unknown [id number] 2.16.8 40.1.548324.3.579.2.462 Unknown [id number] 2.16.8 40.1.580708.3.579.2.462 Unknown [id number] 2.16.8 40.1.712745.3.579.2.462 Unknown [id number] 2.16.8 40.1.524150.3.579.2.462 Unknown [id number] 2.16.8 40.1.404563.3.579.2.462 Unknown [id number] 2.16.8 40.1.678951.3.579.2.462 Unknown [id number] 2.16.8 40.1.739342.3.579.2.462 Social History Date Type Detail Facility Caffeine Use Never smoker [facility] Work Phone: Comment on above: 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 [facility] Work Phone: Tobacco use: Tobacco use: [facility] Work Phone: Start: 09-19-2020 End: 02-08-2025 Never smoked tobacco (finding) [facility] Sex Assigned At [facility] Start: 10-30-2021 End: 07-28-2023 Tobacco smoking status NHIS Unknown if ever smoked [facility] Start: 02-25-2019 None [facility] [place] Start: 02-25-2019 Spouse/ Signif icant Other [facility] Start: 02-26-2019 Non-smoker [facility] Start: 1960 Sex Assigned At Female [facility] Start: 08-10-2024 End: 08-25-2024 Sex Female (finding) [facility] Sex Female [facility] Goals Date Patient Goal Desired Activity /State Clinical Notes 09-04-2023 to 12-16-2024 Note Date & Type Note Facility 12-16-2024 Note . MICRO - Microbiology PROCEDURE: Culture Wound Aerobic with Gram Stain [*1] SOURCE: Boil BODY SITE: Vulva COLLECTED DATE/TIME: 12/13/2024 09:22 EDT RECEIVED DATE/TIME: 12/13/2024 16:24 EDT START DATE/TIME: 12/13/2024 16:24 EDT FREE TEXT SOURCE: FINAL REPORTS Final Report [] Verified Date/Time/Personnel: 12/16/2024 07:42 EDT Few Beta Hemolytic Streptococci, Group G Sensitivity testing is not recommended for one of the following reasons: 1. Established susceptibility patterns are available or 2. Interpretative criteria are not available. Few Group B Beta Hemolytic Strep (Strep agalactiae) Sensitivity testing is not recommended for one of the following reasons: 1. Established susceptibility patterns are available or 2. Interpretative criteria are not available. Normal Vaginal Tiffanie: Present Neisseria gonorrhoeae: Negative PRELIMINARY REPORTS Preliminary Report [] Verified Date/Time/Personnel: 12/15/2024 09:01 EDT Few Beta Hemolytic Streptococci, Group G Sensitivity testing is not recommended for one of the following reasons: 1. Established susceptibility patterns are available or 2. Interpretative criteria are not available. Few Group B Beta Hemolytic Strep (Strep agalactiae) Sensitivity testing is not recommended for one of the following reasons: 1. Established susceptibility patterns are available or 2. Interpretative criteria are not available. Normal Vaginal Tiffanie: Present Neisseria gonorrhoeae: Pending Preliminary Report [] Verified Date/Time/Personnel: 12/14/2024 10:29 EDT Culture results pending. STAINS GS [] Verified Date/Time/Personnel: 12/13/2024 19:03 EDT Rare Gram Positive Cocci Performing Locations *1: This test was performed at: [address], [facility] , [facility] 10-30-2024 Evaluation note Diagnosis Onset Date Resolution Acute cystitis with hematuria acute October 30, 2024 8:25am Localized osteoarthritis of left knee acute November 04, 2024 8:57am Obesity, class 2 acute October 8:57am Osteoarthritis of right knee acute November 04, 2024 8:57am [facility][1] Services Work Phone: 1(623) 879-639005-31-2025 Evaluation note* Diagnosis Onset Date Resolution Status Admit Date Acute cystitis with hematuria acute October 30, 2024 8:25am Localized osteoarthritis of left knee acute November 04, 2024 8 :57am Obesity, class 2 acute October 8:57am Osteoarthritis of right knee acute November 04, 2024 8:57am Localized osteoarthritis of left knee acute February 08, 2 025 8:56am Osteoarthritis of right knee acute February 08, 2025 8:56am Segmental and somatic dysfunction of cervical region acute February 16, 2025 9:58am Segmental and somatic dysfunction of lumbar region acute Sep 2024 9:58am Segmental and somatic dysfunction of pelvic region acute Sep 2024 9:58am Segmental and somatic dysfunction of thoracic region acute February 16, 2025 9:58am Radiculopathy of lumbar region chronic February 16, 2025 9:58am Back pain noneactive January 9:58am [facility] Work Phone: 1([phone]) [id number] Evaluation note* Diagnosis Onset Date Resolution Status Admit Date Segmental and somatic dysfunction of lumbar region acute October 05, 2024 9:59am Segmental and somatic dysfunction of pelvic region acute October 05, 2024 9:59am Segmental and somatic dysfunction of thoracic region acute 2024 9:59am Bulging lumbar disc chronic October 052024 9:59am Back pain noneactive October 05, 2024 9:59am Acute cystitis with hematuria acute October 30, 2024 8:25am Localized osteoarthritis of left knee acute November 04, 2024 8 :57am Obesity, class 2 acute October 8:57am Osteoarthritis of right knee acute November 04, 2024 8:57am [facility] Work Phone: [phone]) [phone] Evaluation note* Diagnosis Onset Date Resolution Status Admit Date Segmental and somatic dysfunction of cervical region acute A pril 2024 9:26am Segmental and somatic dysfunction of lumbar region acute Aug 9:26am Segmental and somatic dysfunction of pelvic region acute Aug 9:26am Segmental and somatic dysfunction of thoracic region acute A pril 2024 9:26am Bulging lumbar disc chronic September 07, 2024 9:26am Back pain noneactive September 07 9:26am Segmental and somatic dysfunction of lumbar region acute October 05, 2024 9:59am Segmental and somatic dysfunction of pelvic region acute October 05, 2024 9:59am Segmental and somatic dysfunction of thoracic region acute M 2024 9:59am Bulging lumbar disc chronic October 052024 9:59am Back pain noneactive October 05, 2024 9:59am Acute cystitis with hematuria acute October 30, 2024 8:25am Localized osteoarthritis of left knee acute November 04, 2024 8 :57am Obesity, class 2 acute October 8:57am Osteoarthritis of right knee acute November 04, 2024 8:57am [facility] Work Phone: 1([phone]) 657-138102-24-2025 Evaluation note* Diagnosis Onset Date Resolution Status Admit Date Segmental and somatic dysfunction of cervical region acute July 26, 025 10:57am Segmental and somatic dysfunction of lumbar region acute Feb ruary 2024 10:57am Segmental and somatic dysfunction of pelvic region acute Feb ruary 2024 10:57am Segmental and somatic dysfunction of thoracic region acute July 26 025 10:57am Bulging lumbar disc chronic Febru [email or web address] 10:57am Segmental and somatic dysfunction of lumbar region acute [facility] 2024 9:01am Segmental and somatic dysfunction of pelvic region acute [facility] 2024 9:01am Segmental and somatic dysfunction of thoracic region acute August 03, 2024 9:01am Bulging lumbar disc chronic August 03, 2024 9:01am Back pain noneactive August 03 9:01am Osteoarthritis of right knee acute August 06, 2024 8:22am Segmental and somatic dysfunction of cervical region acute August 10, 2024 10:34am Segmental and somatic dysfunction of lumbar region acute [facility] 2024 10:34am Segmental and somatic dysfunction of pelvic region acute [facility] 2024 10:34am Segmental and somatic dysfunction of thoracic region acute August 10, 2024 10:34am Radiculopathy of lumbar region chronic August 10, 2024 10:34am Localized osteoarthritis of left knee acute August 12, 2024 8:57am Osteoarthritis, localized, knee acute August 12, 2024 8:57am Segmental and somatic dysfunction of cervical region acute August 17, 2024 8:49am Segmental and somatic dysfunction of lumbar region acute [facility] 2024 8:49am Segmental and somatic dysfunction of pelvic region acute [facility] 2024 8:49am Segmental and somatic dysfunction of thoracic region acute August 17, 2024 8:49am Bulging lumbar disc chronic August 17, 2024 8:49am Localized osteoarthritis of left knee acute August 20, 2024 8:57am Segmental and somatic dysfunction of cervical region acute September 07, 2024 9:26am Segmental and somatic dysfunction of lumbar region acute Apr il 2024 9:26am Segmental and somatic dysfunction of pelvic region acute Apr 2024 9:26am Segmental and somatic dysfunction of thoracic region acute September 07, 2024 9:26am Bulging lumbar disc chronic September 07, 2024 9:26am Back pain noneactive September 07 9:26am Segmental and somatic dysfunction of lumbar region acute October 05, 2024 9:59am Segmental and somatic dysfunction of pelvic region acute October 05, 2024 9:59am Segmental and somatic dysfunction of thoracic region acute October 05, 2024 9: 59am Bulging lumbar disc chronic October 052024 9:59am Back pain noneactive October 05, 2024 9:59am Acute cystitis with hematuria acute October 30, 2024 8:25am Localized osteoarthritis of left knee acute November 04, 2024 8 :57am Obesity, class 2 acute October 8:57am Osteoarthritis of right knee acute November 04, 2024 8:57am [facility] Work Phone: 1(856) 650-994802-05-2025 Evaluation note* Diagnosis Onset Date Resolution Status Admit Date Osteoarthritis of knees, bilateral noneactive July 07 8:26am Segmental and somatic dysfunction of cervical region acute July 26, 2 025 10:57am Segmental and somatic dysfunction of lumbar region acute Feb ruary 2024 10:57am Segmental and somatic dysfunction of pelvic region acute Feb ruary 2024 10:57am Segmental and somatic dysfunction of thoracic region acute July 26, 025 10:57am Bulging lumbar disc chronic Febru shahid 2024 10:57am Segmental and somatic dysfunction of lumbar region acute Mar 2024 9:01am Segmental and somatic dysfunction of pelvic region acute Mar 2024 9:01am Segmental and somatic dysfunction of thoracic region acute August 03, 2024 9:01am Bulging lumbar disc chronic August 03, 2024 9:01am Back pain noneactive August 03 9:01am Osteoarthritis of right knee acute August 06, 2024 8:22am Segmental and somatic dysfunction of cervical region acute August 10, 2024 10:34am Segmental and somatic dysfunction of lumbar region acute [facility] 2024 10:34am Segmental and somatic dysfunction of pelvic region acute [facility] 2024 10:34am Segmental and somatic dysfunction of thoracic region acute August 10, 2024 10:34am Radiculopathy of lumbar region chronic August 10, 2024 10:34am Localized osteoarthritis of left knee acute August 12, 2024 8:57am Osteoarthritis, localized, knee acute August 12, 2024 8:57am Segmental and somatic dysfunction of cervical region acute August 17, 2024 8:49am Segmental and somatic dysfunction of lumbar region acute [facility] 2024 8:49am Segmental and somatic dysfunction of pelvic region acute [facility] 2024 8:49am Segmental and somatic dysfunction of thoracic region acute August 17, 2024 8:49am Bulging lumbar disc chronic August 17, 2024 8:49am Localized osteoarthritis of left knee acute August 20, 2024 8:57am Segmental and somatic dysfunction of cervical region acute September 07, 2024 9:26am Segmental and somatic dysfunction of lumbar region acute Apr 2024 9:26am Segmental and somatic dysfunction of pelvic region acute Apr 2024 9:26am Segmental and somatic dysfunction of thoracic region acute September 07, 2024 9:26am Bulging lumbar disc chronic September 07, 2024 9:26am Back pain noneactive September 07 9:26am Segmental and somatic dysfunction of lumbar region acute October 05, 2024 9:59am Segmental and somatic dysfunction of pelvic region acute October 05, 2024 9:59am Segmental and somatic dysfunction of thoracic region acute October 05, 2024 9: 59am Bulging lumbar disc chronic October 052024 9:59am Back pain noneactive October 05, 2024 9:59am [facility] Work Phone: 1([phone]) 229-966202-05-2025 Evaluation note* Diagnosis Onset Date Resolution Status Admit Date Osteoarthritis of knees, bilateral noneactive July 07 8:26am Segmental and somatic dysfunction of cervical region acute July 26, 2 025 10:57am Segmental and somatic dysfunction of lumbar region acute Feb ruary 2024 10:57am Segmental and somatic dysfunction of pelvic region acute Feb ruary 2024 10:57am Segmental and somatic dysfunction of thoracic region acute July 26, 2 025 10:57am Bulging lumbar disc chronic Febru shahid 2024 10:57am Segmental and somatic dysfunction of lumbar region acute [facility] 2024 9:01am Segmental and somatic dysfunction of pelvic region acute [facility] 2024 9:01am Segmental and somatic dysfunction of thoracic region acute August 03, 2024 9:01am Bulging lumbar disc chronic August 03, 2024 9:01am Back pain noneactive August 03 9:01am Osteoarthritis of right knee acute August 06, 2024 8:22am Segmental and somatic dysfunction of cervical region acute August 10, 2024 10:34am Segmental and somatic dysfunction of lumbar region acute [facility] 2024 10:34am Segmental and somatic dysfunction of pelvic region acute [facility] 2024 10:34am Segmental and somatic dysfunction of thoracic region acute August 10, 2024 10:34am Radiculopathy of lumbar region chronic August 10, 2024 10:34am Localized osteoarthritis of left knee acute August 12, 2024 8:57am Osteoarthritis, localized, knee acute August 12, 2024 8:57am Segmental and somatic dysfunction of cervical region acute August 17, 2024 8:49am Segmental and somatic dysfunction of lumbar region acute [facility] 2024 8:49am Segmental and somatic dysfunction of pelvic region acute [facility] 2024 8:49am Segmental and somatic dysfunction of thoracic region acute August 17, 2024 8:49am Bulging lumbar disc chronic August 17, 2024 8:49am Localized osteoarthritis of left knee acute August 20, 2024 8:57am Segmental and somatic dysfunction of cervical region acute September 07, 2024 9:26am Segmental and somatic dysfunction of lumbar region acute Apr 2024 9:26am Segmental and somatic dysfunction of pelvic region acute Apr 2024 9:26am Segmental and somatic dysfunction of thoracic region acute September 07, 2024 9:26am Bulging lumbar disc chronic September 07, 2024 9:26am Back pain noneactive September 07 9:26am Segmental and somatic dysfunction of lumbar region acute October 05, 2024 9:59am Segmental and somatic dysfunction of pelvic region acute October 05, 2024 9:59am Segmental and somatic dysfunction of thoracic region acute October 05, 2024 9: 59am Bulging lumbar disc chronic October 052024 9:59am Back pain noneactive October 05, 2024 9:59am Acute cystitis with hematuria acute October 30, 2024 8:25am [facility] Work Phone: 1([phone]) 290-996601-07-2025 Evaluation note* Diagnosis Onset Date Resolution Status Admit Date Segmental and somatic dysfunction of cervical region acute June 08 10:31am Segmental and somatic dysfunction of lumbar region acute Jun 10:31am Segmental and somatic dysfunction of pelvic region acute Jun 10:31am Segmental and somatic dysfunction of thoracic region acute June 08 10:31am Bulging lumbar disc chronic 2024 10:31am Osteoarthritis of knees, bilateral noneactive July 07 8:26am Segmental and somatic dysfunction of cervical region acute July 26, 025 10:57am Segmental and somatic dysfunction of lumbar region acute Feb ruary 2024 10:57am Segmental and somatic dysfunction of pelvic region acute [facility] 2024 10:57am Segmental and somatic dysfunction of thoracic region acute July 26, 025 10:57am Bulging lumbar disc chronic Febru [email or web address] 10:57am Segmental and somatic dysfunction of lumbar region acute [facility] 2024 9:01am Segmental and somatic dysfunction of pelvic region acute [facility] 2024 9:01am Segmental and somatic dysfunction of thoracic region acute August 03, 2024 9:01am Bulging lumbar disc chronic August 03, 2024 9:01am Back pain noneactive August 03 9:01am Osteoarthritis of right knee acute August 06, 2024 8:22am [facility] Work Phone: [phone] Evaluation note* Diagnosis Onset Date Resolution Status Admit Date Segmental and somatic dysfunction of cervical region acute June 08 10:31am Segmental and somatic dysfunction of lumbar region acute Jun 10:31am Segmental and somatic dysfunction of pelvic region acute Jun 10:31am Segmental and somatic dysfunction of thoracic region acute June 08 10:31am Bulging lumbar disc chronic 2024 10:31am Osteoarthritis of knees, bilateral noneactive July 07 8:26am Segmental and somatic dysfunction of cervical region acute July 26, 2 025 10:57am Segmental and somatic dysfunction of lumbar region acute Feb ruary 2024 10:57am Segmental and somatic dysfunction of pelvic region acute Feb ruary 2024 10:57am Segmental and somatic dysfunction of thoracic region acute July 26, 025 10:57am Bulging lumbar disc chronic Febru shahid 2024 10:57am Segmental and somatic dysfunction of lumbar region acute [facility] 2024 9:01am Segmental and somatic dysfunction of pelvic region acute [facility] 2024 9:01am Segmental and somatic dysfunction of thoracic region acute August 03, 2024 9:01am Bulging lumbar disc chronic August 03, 2024 9:01am Back pain noneactive August 03 9:01am Osteoarthritis of right knee acute August 06, 2024 8:22am Segmental and somatic dysfunction of cervical region acute August 10, 2024 10:34am Segmental and somatic dysfunction of lumbar region acute [facility] 2024 10:34am Segmental and somatic dysfunction of pelvic region acute [facility] 2024 10:34am Segmental and somatic dysfunction of thoracic region acute August 10, 2024 10:34am Radiculopathy of lumbar region chronic August 10, 2024 10:34am Osteoarthritis, localized, knee acute August 12, 2024 8:57am Segmental and somatic dysfunction of cervical region acute August 17, 2024 8:49am Segmental and somatic dysfunction of lumbar region acute [facility] 2024 8:49am Segmental and somatic dysfunction of pelvic region acute [facility] 2024 8:49am Segmental and somatic dysfunction of thoracic region acute August 17, 2024 8:49am Bulging lumbar disc chronic August 17, 2024 8:49am Localized osteoarthritis of left knee acute August 20, 2024 8:57am [facility] Work Phone: 1([phone]) 133-783404-08-2024 Discharge summary Author Alem Sanchez [facility] September 08, 2023 10:53am Note Date/Time September 08, 2023 10:[address] [facility] Physical Therapy [address] [place] [address] / REHABILITATION SERVICES DISCHARGE SUMMARY MR#: [id number] Acct: [id number] Name: WEST POSADAS Rep #: [id number] : 1960 63 From: Alem WALTERS T Referring Dr.: Dr. Charo Swenson, DO Status: REG RCR [facility] Patient Information Patient Information: WEST POSADAS was seen in my office for initial evaluation on 03/27/23. The following Plan of Care was established for this patient: POC Established Initial Frequency: 2x /Week Initial Duration: 4 Weeks Anticipated Interventions Patient/Client Instruction: Educate patient on: Benefits of Fitness Program Therapeutic Exercise to Include: Strength training, Endurance training, Balance training, Coordination, Agility training, Body mechanics, Postural training, Flexibilty training, Gait and locomotor training, Neuromotor development, "In anaquatic setting", Dynamic Lumbar Stabilization and Scapular Strength/Stabilization For the Purpose of:: To improve muscle performance and motor function Last Seen Last Seen: This patient was last seen in our office . Pertinent comments regarding their Physical therapy will appear below: Patient has new v#- appropriate to be d/c At this point I will be discontinuing this patient from physical therapy. I would be happy to see this patient again in the future if found appropriate by the physician. Thank you! Alem Sanchez, SELENAT Balance/Gait/Functional tests Balance/Special Test Scores Lower Extremity Functional Score: 29 Quick DASH Score: 29.5450 <Electronically signed by Alem Sanchez DPT> 09/08/23 1053 CC: Dr. Charo Swenson, DO ~ ELR Signed [facility] Work Phone: 1(681) 187-125604-04-2024 Discharge summary Author Carlos Cardona [facility] September 04, 2023 10:48am Note Date/Time September 04, 2023 10:[address] [facility] [address] [place] [address]. [address] [place] [address] / REHABILITATION SERVICES DISCHARGE SUMMARY MR#: [id number] Acct: [id number] Name: WEST POSADAS Rep #: [id number] : 1960 63 From: Carlos Cardona DPT, KACEY, CSCS Referring DrPavithra: Dr. Charo Swenson DO Status: REG RCR Insurance: [employer]/[facility] SELF PAY INSURANCE Discharge Summary D/C summary: It has been my pleasure to treat WEST POSADAS referred by Dr. Charo Swenson DO, with the diagnosis of L ITB tendonitis, GT bursitis for a total of 5 visit(s). Discharge Date: 09/04/23 Please see the following information for a summary of their discharge status. Subjective Subjective: Getting better. Doing HEP of stretches and strengthening at home without a problem. Pain is 0/10 today. Had some soreness in leg after [employer] workout. Activities : normal but avoiding running and crouching due to hip more kush ITB. Sleeping on L side can still hurt. Pain L hip: Pain Intensity (Out of 10): 3 Overall Improvement % Improvement: 80 Objective Objective/Function: Steps and walking and transfers without hesitation or any real pain today, L slighty stiff going up steps. Goals Goal 1:: I appropriate HEP ITB stretch adn hip strength gym adn home Goal Progress: Goal Met Goal 2:: Pain L hip 99% better and 1/10 at worst, no hesitancy with movement Goal Progress: 80% Goal 3:: Sit for work without incrreeased pain Goal Progress: Progressing Goal 4:: LEFS score 50 Goal Progress: Progressing Plan Plan: d/c to HEP adn gym D/C Information Discharge Comments: Will continue home adn gym ex. d/c sentence: If there are questions or concerns regarding this patient's physical therapy, please feel free to call me at [phone]. Thank you for the referral of thispatient. Sincerely, Carlos Cardona DPT, KACEY, CSCS Balance/Gait/Functional tests Balance/Special Test Scores Lower Extremity Functional Score: 44 Improvement % Improvement: 80 <Electronically signed by Carlos Cardona DPT, KACEY, CSCS> 09/04/23 1048 CC: Dr. Charo Swenson, ~ EBG Signed [facility] Work Phone: Chief complaint+Reason for visit Narrative* Chief Complaint PORT FLUSH LUNG NODULE COVID-19 [facility] Work Phone: Chief complaint+Reason for visit Narrative* Chief Complaint PORT FLUSH LUNG NODULE COVID-19 LBP PORT FLUSH Reason for Visit Segmental and somati c dysfunction of lumbar region Segmental and somatic dysfunction of pelvic region Bulging lumbar disc Radiculopathy of lumbar region Segmental and somatic dysfunction of cervical region [facility] Work Phone: Chief complaint+Reason for visit Narrative* Chief Complaint PORT FLUSH LABS Back pain LACERATION Back pain Back pain COVID-19 COUGH/CONGESTION/SHORT OF BREATH AT TIMES Reason for Visit Segmental and somati c dysfunction of lumbar region Segmental and somatic dysfunction of pelvic region Segmental and somatic dysfunction of thoracic region Bulging lumbar disc Segmental and somatic dysfunction of lumbar region Segmental and somatic dysfunction of pelvic region Segmental and somatic dysfunction of thoracic region Bulging lumbar disc Segmental and somatic dysfunction of lumbar region Segmental and somatic dysfunction of pelvic region Segmental and somatic dysfunction of thoracic region Bulging lumbar disc Acute bronchitis, unspecified Contact with and (suspected) exposure to other viral communicable diseases [facility] Work Phone: Chief complaint+Reason for visit Narrative* Chief Complaint PORT FLUSH LABS Back pain LACERATION Back pain Back pain COVID-19 COUGH/CONGESTION/SHORT OF BREATH AT TIMES Back pain EORDER FROM DR CHARLES Back pain Reason for Visit Segmental and somati c dysfunction of lumbar region Segmental and somatic dysfunction of pelvic region Segmental and somatic dysfunction of thoracic region Bulging lumbar disc Segmental and somatic dysfunction of lumbar region Segmental and somatic dysfunction of pelvic region Segmental and somatic dysfunction of thoracic region Bulging lumbar disc Segmental and somatic dysfunction of lumbar region Segmental and somatic dysfunction of pelvic region Segmental and somatic dysfunction of thoracic region Bulging lumbar disc Acute bronchitis, unspecified Contact with and (suspected) exposure to other viral communicable diseases Segmental and somatic dysfunction of lumbar region Segmental and somatic dysfunction of pelvic region Bulging lumbar disc Segmental and somatic dysfunction of lumbar region Segmental and somatic dysfunction of pelvic region Bulging lumbar disc [facility] Work Phone: Chief complaint+Reason for visit Narrative* Chief Complaint LABS Back pain LACERATION Back pain Back pain COVID-19 COUGH/CONGESTION/SHORT OF BREATH AT TIMES Back pain EORDER FROM DR CHARLES Back pain Back pain Back pain SOMATIC AND SEGMENTAL DYSFUNCTION LUMBAR RX HERE PORT DRAW Reason for Visit Segmental and somati c dysfunction of lumbar region Segmental and somatic dysfunction of pelvic region Segmental and somatic dysfunction of thoracic region Bulging lumbar disc Segmental and somatic dysfunction of lumbar region Segmental and somatic dysfunction of pelvic region Segmental and somatic dysfunction of thoracic region Bulging lumbar disc Segmental and somatic dysfunction of lumbar region Segmental and somatic dysfunction of pelvic region Segmental and somatic dysfunction of thoracic region Bulging lumbar disc Acute bronchitis, unspecified Contact with and (suspected) exposure to other viral communicable diseases Segmental and somatic dysfunction of lumbar region Segmental and somatic dysfunction of pelvic region Bulging lumbar disc Segmental and somatic dysfunction of lumbar region Segmental and somatic dysfunction of pelvic region Bulging lumbar disc Segmental and somatic dysfunction of lumbar region Segmental and somatic dysfunction of pelvic region Bulging lumbar disc Segmental and somatic dysfunction of lumbar region Segmental and somatic dysfunction of pelvic region Segmental and somatic dysfunction of thoracic region Bulging lumbar disc Segmental and somatic dysfunction of cervical region [facility] Work Phone: Discharge summary Author Dr. Singh [facility] July 18, 2022 9:38am Note Date/Time July 18, 2022 8:19am [facility] Medical Records Department [address] [place] [address] Emergency Department Summary 07/18/22 MR#: [id number] Acct: [id number] Name: WEST POSADAS Rep #:[id number] : 1960 62 From: Luiza Viveros PCP: Dr. Charo Swenson, DO Status:RE G ER Location: ED HPI History of Present Illness Chief Complaint: Laceration Informant: patient Narrative Narrative: Patient is a 62-year-old female denies any significant past medical history (chart review shows history of hypertension) presenting with laceration to her left middle finger. Patient was preparing dinner last night when she excellently cut her finger with a paring knife. He continued to bleed throughout the night so she came in today to be evaluated. She has some throbbing pain at the finger. She notes she is right-hand dominant. Denies any associated numbness or tingling. No other complaints at this time. Tetanus Immunization: >10 years PFSH PFSH Medical History Diarrhea Endometrial cancer HTN (hypertension) Migraines Non-smoker Home Medications hydrochlorothiazide 25 mg tablet 25 mg PO DAILY 02/25/19 [History Last Taken 02/25/19] meloxicam 7.5 mg tablet 7.5 mg PO DAILY pain 02/25/19 [History Last Taken 02/25/19] multivitamin 1 ea PO DAILY 02/25/19 [History Last Taken 02/25/19] diltiazem HCl 240 mg capsule,extended release 24 hr 240 mg PO DAILY 12/18/21 [History Last Taken Unknown] gabapentin 300 mg capsule 300 mg PO QHS 12/18/21 [History Last Taken Unknown] loratadine 10 mg tablet (Claritin) 10 mg PO DAILY 12/18/21 [History Last Taken Unknown] melatonin 10 mg capsule 10 mg PO HS PRN 12/18/21 [History Last Taken Unknown] Allergy/AdvReac Type Severity Reaction Status Date / Time midazolam [From Versed] Allergy hypotensive Verified 07/18/22 08:05 codeine AdvReac Vomiting Verified 07/18/22 08:05 erythromycin base AdvReac Vomiting Verified 07/18/22 08:05 Family History Mother Arthritis Migraine Father CAD (coronary artery disease) Hx of CABG Arthritis Surgical History History of appendectomy History of cholecystectomy History of total abdominal hysterectomy Social History Smoking Status: Never smoker alcohol intake: never ROS ROS ED Constitutional Constitutional ED: Denies chills or fever(s) Respiratory/Chest Respiratory/Chest: Denies dyspnea Gastrointestinal Gastrointestinal: Denies nausea Musculoskeletal Musculoskeletal: Reports other Details: Left third finger pain Integumentary Reports other Details: Laceration to the left third finger Neurologic Neurologic: Denies paresthesias or weakness Hematologic/Lymphatic Hematologic/Lymphatic: Denies easy bleeding or easy bruising EXAM Physical Exam Const Vital Signs: 07/18/22 08:02 Temperature 97.9 F Temperature Source Temporal Pulse Rate 88 Respiratory Rate 14 Blood Pressure 161/87 H Blood Pressure Mean 111 Pulse Ox 99 Oxygen Delivery Method Room Air Positive well nourished and well developed General Appearance ED: well developed and NAD HEENT atraumatic Eyes PERRL Neck full ROM Chest Wall inspection of chest normal Resp normal respiratory effort and clear to auscultation bilaterally Cardio regular rhythm and no murmurs Rate: regular rate Extremity normal to inspection and full ROM Extremity Narrative: Normal range of motion with flexion extension of the left third finger. General Extremety ED: Negative for deformity General Extremity: Negative for deformity Neuro oriented x3, moves all extremities, no focal motor deficits and no sensory deficits noted Psych mental status grossly normal Skin Skin Narrative: 0.5 cm L-shaped laceration to the medial aspect of the distal left third finger. No active bleeding at this time. Is full-thickness but more of a skin flap. No other laceration or wound appreciated. MDM MDM MDM Narrative Medical decision making narrative: Patient evaluate for bleeding laceration to her left third finger. Tetanus willbe updated. Wound to be cleansed. Is not currently not bleeding. It is a small skin flap and I am concerned that a suture will not hold as the skin flap itself is so thin. Will Dermabond after cleansing it. I do not think she requires empiric antibiotics at this time. Do not think any imaging is indicated as I do not suspect an underlying fracture. Patient is neurovascularly intact. Patient counseled generalized wound care and return precautions. She verbalizes agreement understand this plan. She is offered ibuprofen or Tylenol in the ER but declined states she can just take some after she leaves. Reports that patient left before receiving her tetanus shot. Discharge Plan Triage Chief Complaint: Laceration ED Provider: Luiza Singh Dx/Rx/DC Orders Clinical Impression: Laceration of finger of left hand without foreign body without damage to nail, Bleeding from wound Instructions: ED Laceration, Hand: All Closures Prescriptions: No Action diltiazem HCl 240 mg capsule,extended release 24hr 240 mg PO DAILY gabapentin 300 mg capsule 300 mg PO QHS loratadine [Claritin] 10 mg tablet 10 mg PO DAILY melatonin 10 mg capsule 10 mg PO HS PRN hydrochlorothiazide 25 MG tablet 25 mg PO DAILY multivitamin 1 EACH tablet 1 ea PO DAILY meloxicam 7.5 MG tablet 7.5 mg PO DAILY Primary Care Provider: Charo Swenson Referrals: Charo Swenson DO [Primary Care Provider] - Activity Restrictions/Additional Instructions: Return if you develop signs of infection or increased pain or the bleeding starts again and cannot be controlled at home with direct pressure. Do not apply any Vaseline/petroleum jelly or antibiotic ointment to the glue as it will cause the glue to dissolve. Disposition Disposition: Home, Self Care What to do if you have Problems For any increased pain, shortness of breath, bleeding, nausea or vomiting, chestpain, or any unexpected problems, contact your Primary Care Provider. Call [facility] ([phone]) or report to the closest Emergency Room. Call 911 if necessary. 07/18/[id number] <Electronically signed by Luiza Singh DO> Cosigner Signature (if applicable): CC: Dr. Charo Swenson, ~ Signed [facility] Work Phone: Evaluation + Plan note Future Appointments Appointment Date:04/04/2021 03:30:00 PM Scheduled Provider:RADHA MINA MD [facility] Appointment Type:SO OV Future Scheduled Tests Radiology* PET/CT Initial Staging Tumor Skull Base to Mid-Thigh 09/22/20 * CT Thorax w/ Contrast 11/16/20 * CT Thorax w/ Contrast 09/01/20 * CT Abdomen and Pelvis w/ contrast 11/16/20 * CT Abdomen and Pelvis w/ contrast 09/01/20 [facility] Evaluation + Plan note Future Appointments Appointment Date:07/05/2021 10:10:00 AM Scheduled Provider:RADHA MINA MD Location[facility] Appointment Type:SO OV Follow Up Future Scheduled Tests Laboratory* Cancer Antigen 125 04/04/21 Radiology* PET/CT Initial Staging Tumor Skull Base to Mid-Thigh 09/22/20 * CT Thorax w/ Contrast 11/16/20 * CT Thorax w/ Contrast 09/01/20 * CT Abdomen and Pelvis w/ contrast 11/16/20 * CT Abdomen and Pelvis w/ contrast 09/01/20 [facility] Evaluation + Plan note Future Appointments Appointment Date:10/11/2021 11:20:00 AM Scheduled Provider:RADHA MINA MD [facility] Appointment Type:SO OV Follow Up Future Scheduled Tests Laboratory* Cancer Antigen 125 10/09/21 * Cancer Antigen 125 04/04/21 Radiology* PET/CT Initial Staging Tumor Skull Base to Mid-Thigh 09/22/20 * CT Thorax w/ Contrast 11/16/20 * CT Thorax w/ Contrast 09/01/20 * XR Chest 2 Views (PA & Lateral) 07/12/21 * CT Abdomen and Pelvis w/ contrast 11/16/20 * CT Abdomen and Pelvis w/ contrast 09/01/20 * US Thyroid 04/13/21 [facility] evaluation + Plan note Future Appointments Appointment Date:02/20/2022 01:40:00 PM Scheduled Provider:RADHA MINA MD [facility] Appointment Type:SO OV Follow Up Future Scheduled Tests Laboratory* Cancer Antigen 125 02/14/22 * Cancer Antigen 125 04/04/21 * Cancer Antigen 125 10/09/21 Radiology* CT Thorax w/ Contrast 11/16/20 * XR Chest 2 Views (PA & Lateral) 07/12/21 * CT Abdomen and Pelvis w/ contrast 11/16/20 * US Thyroid 04/13/21 [facility] Evaluation + Plan note Future Appointments Appointment Date:07/17/2022 09:40:00 AM Scheduled Provider:RADHA MINA MD [facility] Appointment Type:SO OV Follow Up Future Scheduled Tests Laboratory* Cancer Antigen 125 03/13/22 * Cancer Antigen 125 02/14/22 * Cancer Antigen 125 04/04/21 [facility] evaluation + Plan note Future Appointments Appointment Date:11/13/2022 09:40:00 AM Scheduled Provider:RADHA MINA MD [facility] Appointment Type:SO OV Follow Up Future Scheduled Tests Laboratory* Cancer Antigen 125 03/13/22 * Cancer Antigen 125 07/17/22 * Cancer Antigen 125 02/14/22 [facility] evaluation + Plan note Future Appointments Appointment Date:03/19/2023 10:00:00 AM Scheduled Provider:RADHA MINA MD [facility] Appointment Type:SO OV Follow Up Future Scheduled Tests Laboratory* Basic Metabolic Panel 03/15/23 * Cancer Antigen 125 03/15/23 Radiology* CT Thorax w/ Contrast 11/13/22 * CT Abdomen and Pelvis w/ contrast 11/13/22 [facility] evaluation + Plan note Future Appointments Appointment Date:09/17/2023 09:00:00 AM Scheduled Provider:YONG LEGGETT Location[facility] Appointment Type:SO OV Future Scheduled Tests Laboratory* Basic Metabolic Panel 03/15/23 * Cancer Antigen 125 09/18/23 * Cancer Antigen 125 03/15/23 Radiology* CT Thorax w/ Contrast 11/13/22 * CT Abdomen and Pelvis w/ contrast 11/13/22 [facility] evaluation + Plan note Future Appointments Appointment Date:04/21/2024 10:30:00 AM Scheduled Provider: [facility] Appointment Type:SO OV Follow Up Future Scheduled Tests Laboratory* Cancer Antigen 125 09/02/23 * Cancer Antigen 125 05/01/24 Radiology* CT Thorax w/ Contrast 09/02/23 * CT Abdomen and Pelvis w/ contrast 09/02/23 [facility] evaluation + Plan note Future Appointments Appointment Date:05/18/2025 10:20:00 AM Scheduled Provider: [facility] Appointment Type:SO OV Follow Up Future Scheduled Tests Laboratory* Cancer Antigen 125 04/23/24 * Cancer Antigen 125 05/01/24 [facility] evaluation + Plan note Future Appointments Appointment Date:05/18/2025 10:20:00 AM Scheduled Provider: [facility] Appointment Type:SO OV Follow Up Future Scheduled Tests Laboratory* Cancer Antigen 125 11/25/24 * Cancer Antigen 125 04/23/24 * Cancer Antigen 125 05/01/24 [facility] evaluation noteNo assessment information available [facility] Work Phone: evaluation note* Diagnosis Onset Date Resolution Status Segmental and somatic dysfunction of lumbar region acute Segmental and somatic dysfunction of pelvic region acute Bulging lumbar disc chronic Radiculopathy of lumbar region chronic Segmental and somatic dysfunction of cervical region chronic [facility] Work Phone: evaluation note* Diagnosis Onset Date Resolution Status Segmental and somatic dysfunction of lumbar region acute Segmental and somatic dysfunction of pelvic region acute Bulging lumbar disc chronic Radiculopathy of lumbar region chronic [facility] Work Phone: Evaluation note* Diagnosis Onset Date Resolution Status Segmental and somatic dysfunction of lumbar region acute Segmental and somatic dysfunction of pelvic region acute Bulging lumbar disc chronic Radiculopathy of lumbar region chronic Segmental and somatic dysfunction of lumbar region acute Segmental and somatic dysfunction of pelvic region acute Segmental and somatic dysfunction of thoracic region acute Bulging lumbar disc chronic [facility] Work Phone: Evaluation note* Diagnosis Onset Date Resolution Status Segmental and somatic dysfunction of lumbar region acute Segmental and somatic dysfunction of pelvic region acute Segmental and somatic dysfunction of thoracic region acute Bulging lumbar disc chronic Segmental and somatic dysfunction of lumbar region acute Segmental and somatic dysfunction of pelvic region acute Segmental and somatic dysfunction of thoracic region acute Bulging lumbar disc chronic Segmental and somatic dysfunction of lumbar region acute Segmental and somatic dysfunction of pelvic region acute Segmental and somatic dysfunction of thoracic region acute Bulging lumbar disc chronic Acute bronchitis, unspecified acute Contact with and (suspected) exposure to other viral communicable diseases acute [facility] Work Phone: Evaluation note* Diagnosis Onset Date Resolution Status Segmental and somatic dysfunction of lumbar region acute Segmental and somatic dysfunction of pelvic region acute Segmental and somatic dysfunction of thoracic region acute Bulging lumbar disc chronic Segmental and somatic dysfunction of lumbar region acute Segmental and somatic dysfunction of pelvic region acute Segmental and somatic dysfunction of thoracic region acute Bulging lumbar disc chronic Segmental and somatic dysfunction of lumbar region acute Segmental and somatic dysfunction of pelvic region acute Segmental and somatic dysfunction of thoracic region acute Bulging lumbar disc chronic Acute bronchitis, unspecified acute Contact with and (suspected) exposure to other viral communicable diseases acute Segmental and somatic dysfunction of lumbar region acute Segmental and somatic dysfunction of pelvic region acute Bulging lumbar disc chronic Segmental and somatic dysfunction of lumbar region acute Segmental and somatic dysfunction of pelvic region acute Bulging lumbar disc chronic [facility] Work Phone: Evaluation note* Diagnosis Onset Date Resolution Status Segmental and somatic dysfunction of lumbar region acute Segmental and somatic dysfunction of pelvic region acute Segmental and somatic dysfunction of thoracic region acute Bulging lumbar disc chronic Segmental and somatic dysfunction of lumbar region acute Segmental and somatic dysfunction of pelvic region acute Segmental and somatic dysfunction of thoracic region acute Bulging lumbar disc chronic Segmental and somatic dysfunction of lumbar region acute Segmental and somatic dysfunction of pelvic region acute Segmental and somatic dysfunction of thoracic region acute Bulging lumbar disc chronic Acute bronchitis, unspecified acute Contact with and (suspected) exposure to other viral communicable diseases acute Segmental and somatic dysfunction of lumbar region acute Segmental and somatic dysfunction of pelvic region acute Bulging lumbar disc chronic Segmental and somatic dysfunction of lumbar region acute Segmental and somatic dysfunction of pelvic region acute Bulging lumbar disc chronic Segmental and somatic dysfunction of lumbar region acute Segmental and somatic dysfunction of pelvic region acute Bulging lumbar disc chronic Segmental and somatic dysfunction of lumbar region acute Segmental and somatic dysfunction of pelvic region acute Segmental and somatic dysfunction of thoracic region acute Bulging lumbar disc chronic Segmental and somatic dysfunction of cervical region chronic [facility] Work Phone: Evaluation note* Diagnosis Onset Date Resolution Status Segmental and somatic dysfunction of cervical region acute Segmental and somatic dysfunction of lumbar region acute Segmental and somatic dysfunction of pelvic region acute Segmental and somatic dysfunction of thoracic region acute Bulging lumbar disc chronic Back pain noneactive [facility] Work Phone: Evaluation note* Diagnosis Onset Date Resolution Status Segmental and somatic dysfunction of cervical region acute Segmental and somatic dysfunction of lumbar region acute Segmental and somatic dysfunction of pelvic region acute Segmental and somatic dysfunction of thoracic region acute Bulging lumbar disc chronic Back pain noneactive Segmental and somatic dysfunction of cervical region acute Segmental and somatic dysfunction of lumbar region acute Segmental and somatic dysfunction of pelvic region acute Segmental and somatic dysfunction of thoracic region acute Bulging lumbar disc chronic Back pain noneactive Segmental and somatic dysfunction of cervical region acute Segmental and somatic dysfunction of lumbar region acute Segmental and somatic dysfunction of pelvic region acute Segmental and somatic dysfunction of thoracic region acute Bulging lumbar disc chronic Back pain noneactive [facility] Work Phone: Evaluation note* Diagnosis Onset Date Resolution Status Segmental and somatic dysfunction of cervical region acute Segmental and somatic dysfunction of lumbar region acute Segmental and somatic dysfunction of pelvic region acute Segmental and somatic dysfunction of thoracic region acute Bulging lumbar disc chronic Back pain noneactive Segmental and somatic dysfunction of cervical region acute Segmental and somatic dysfunction of lumbar region acute Segmental and somatic dysfunction of pelvic region acute Segmental and somatic dysfunction of thoracic region acute Bulging lumbar disc chronic Back pain noneactive Segmental and somatic dysfunction of cervical region acute Segmental and somatic dysfunction of lumbar region acute Segmental and somatic dysfunction of pelvic region acute Segmental and somatic dysfunction of thoracic region acute Bulging lumbar disc chronic Back pain noneactive Segmental and somatic dysfunction of cervical region acute Segmental and somatic dysfunction of lumbar region acute Segmental and somatic dysfunction of pelvic region acute Segmental and somatic dysfunction of thoracic region acute Bulging lumbar disc chronic Back pain noneactive [facility] Work Phone: Evaluation note* Diagnosis Onset Date Resolution Status Segmental and somatic dysfunction of cervical region acute Segmental and somatic dysfunction of lumbar region acute Segmental and somatic dysfunction of pelvic region acute Segmental and somatic dysfunction of thoracic region acute Bulging lumbar disc chronic Back pain noneactive Segmental and somatic dysfunction of cervical region acute Segmental and somatic dysfunction of lumbar region acute Segmental and somatic dysfunction of pelvic region acute Segmental and somatic dysfunction of thoracic region acute Bulging lumbar disc chronic Back pain noneactive [facility] Work Phone: Hospital course Narrative No data available for this section [facility] Discharge instructions No data available for this section [facility] Discharge instructions Additional Instructions Return if you develop signs of infection or increased pain or the bleeding starts again and cannot be controlled at home with direct pressure. Do not apply any Vaseline/petroleum jelly or antibiotic ointment to the glue as it will cause the glue to dissolve.[facility] Work Phone: Instructions* Name Dates Details Patient Instructions Indication:Left hip pain Start:11-Sep-2020 Instruction Type:Provider Instructions for Treatment How to Access Health Informa tion Online using Patient Portal and [employer] Apps Indication:Left hip pain Start:11-Sep-2020 Instruction Type:Patient Education How to access health informa tion online Indication:Non-smoker Start:23-Feb-2020 Instruction Type:Patient Education How to access health informa tion online - Detail Indication:Non-smoker Start:23-Feb-2020 Instruction Type:Patient Education Patient Instructions Indication:Non-smoker Start:23-Feb-2020 Instruction Type:Provider Instructions for Treatment How to access health informa tion online Indication:Non-smoker Start:17-Sep-2019 Instruction Type:Patient Education How to access health informa tion online - Detail Indication:Non-smoker Start:17-Sep-2019 Instruction Type:Patient Education Patient Instructions Indication:Non-smoker Start:17-Sep-2019 Instruction Type:Provider Instructions for Treatment How to access health informa tion online Indication:BMI 35.0-35.9,adult Start:23-Jun-2019 Instruction Type:Patient Education How to access health informa tion online - Detail Indication:BMI 35.0-35.9,adult Start:23-Jun-2019 Instruction Type:Patient Education Patient Instructions Indication:BMI 35.0-35.9,adult Start:23-Jun-2019 Instruction Type:Provider Instructions for Treatment How to access health informa tion online Indication:Non-smoker Start:09-Mar-2019 Instruction Type:Patient Education How to access health informa tion online - Detail Indication:Non-smoker Start:09-Mar-2019 Instruction Type:Patient Education Patient Instructions Indication:Non-smoker Start:09-Mar-2019 Instruction Type:Provider Instructions for Treatment How to access health informa tion online Indication:Physical exam for work/school/camp (Renamed from Encounter for school health examination) Start:25-Feb-2019 Instruction Type:Patient Education How to access health informa tion online - Detail Indication:Physical exam for work/school/camp (Renamed from Encounter for school health examination) Start:25-Feb-2019 Instruction Type:Patient Education Patient Instructions Indication:Physical exam for work/school/camp (Renamed from Encounter for school health examination) Start:25-Feb-2019 Instruction Type:Provider Instructions for Treatment How to access health informa tion online Indication:Non-smoker Start:23-Feb-2019 Instruction Type:Patient Education How to access health informa tion online - Detail Indication:Non-smoker Start:23-Feb-2019 Instruction Type:Patient Education Patient Instructions Indication:Non-smoker Start:23-Feb-2019 Instruction Type:Provider Instructions for Treatment How to access health informa tion online Indication:Non-smoker Start:29-Jan-2019 Instruction Type:Patient Education How to access health informa tion online - Detail Indication:Non-smoker Start:29-Jan-2019 Instruction Type:Patient Education Patient Instructions Indication:Non-smoker Start:29-Jan-2019 Instruction Type:Provider Instructions for Treatment How to access health informa tion online Indication:Non-smoker Start:24-Sep-2018 Instruction Type:Patient Education How to access health informa tion online - Detail Indication:Non-smoker Start:24-Sep-2018 Instruction Type:Patient Education Patient Instructions Indication:Non-smoker Start:24-Sep-2018 Instruction Type:Provider Instructions for Treatment How to access health informa tion online Indication:BMI 35.0-35.9,adult Start:18-Jun-2018 Instruction Type:Patient Education How to access health informa tion online - Detail Indication:BMI 35.0-35.9,adult Start:18-Jun-2018 Instruction Type:Patient Education Patient Instructions Indication:BMI 35.0-35.9,adult Start:18-Jun-2018 Instruction Type:Provider Instructions for Treatment How to access health informa tion online Indication:Non-smoker Start:28-Apr-2018 Instruction Type:Patient Education How to access health informa tion online - Detail Indication:Non-smoker Start:28-Apr-2018 Instruction Type:Patient Education Patient Instructions Indication:Non-smoker Start:28-Apr-2018 Instruction Type:Provider Instructions for Treatment How to access health informa tion online Indication:Non-smoker Start:16-Apr-2018 Instruction Type:Patient Education How to access health informa tion online - Detail Indication:Non-smoker Start:16-Apr-2018 Instruction Type:Patient Education Patient Instructions Indication:Back pain, lumbosacral Start:16-Apr-2018 Instruction Type:Provider Instructions for Treatment How to access health informa tion online Indication:BMI 35.0-35.9,adult Start:26-Feb-2018 Instruction Type:Patient Education How to access health informa tion online - Detail Indication:BMI 35.0-35.9,adult Start:26-Feb-2018 Instruction Type:Patient Education Patient Instructions Indication:BMI 35.0-35.9,adult Start:26-Feb-2018 Instruction Type:Provider Instructions for Treatment How to access health informa tion online Indication:Nonsmoker Start:27-Feb-2017 Instruction Type:Patient Education How to access health informa tion online - Detail Indication:Nonsmoker Start:27-Feb-2017 Instruction Type:Patient Education Patient Instructions Indication:Nonsmoker Start:27-Feb-2017 Instruction Type:Provider Instructions for Treatment How to access health informa tion online Indication:Nonsmoker Start:06-Sep-2016 Instruction Type:Patient Education How to access health informa tion online - Detail Indication:Nonsmoker Start:06-Sep-2016 Instruction Type:Patient Education Patient Instructions Indication:Nonsmoker Start:06-Sep-2016 Instruction Type:Provider Instructions for Treatment How to access health informa tion online Indication:Neoplasm of uncertain behavior of skin Start:08-May-2016 Instruction Type:Patient Education How to access health informa tion online - Detail Indication:Neoplasm of uncertain behavior of skin Start:08-May-2016 Instruction Type:Patient Education Patient Instructions Indication:Neoplasm of uncertain behavior of skin Start:08-May-2016 Instruction Type:Provider Instructions for Treatment How to access health informa tion online Indication:BMI 38.0-38.9,adult Start:23-Apr-2016 Instruction Type:Patient Education How to access health informa tion online - Detail Indication:BMI 38.0-38.9,adult Start:23-Apr-2016 Instruction Type:Patient Education Patient Instructions Indication:BMI 38.0-38.9,adult Start:23-Apr-2016 Instruction Type:Provider Instructions for Treatment How to access health informa tion online Indication:Annual physical exam Start:17-Feb-2014 Instruction Type:Patient Education How to access health informa tion online - Detail Indication:Annual physical exam Start:17-Feb-2014 Instruction Type:Patient Education How to access health informa tion online Indication:Benign essential hypertension Start:02-Dec-2013 Instruction Type:Patient Education How to access health informa tion online - Detail Indication:Benign essential hypertension Start:02-Dec-2013 Instruction Type:Patient Education Patient Instructions Indication:Benign essential hypertension Start:02-Dec-2013 Instruction Type:Provider Instructions for Treatment Patient Instructions Indication:Benign essential hypertension Start:23-Sep-2012 Instruction Type:Provider Instructions for Treatment Patient Instructions Indication:Benign essential hypertension Start:13-Feb-2012 Instruction Type:Provider Instructions for Treatment [facility] Work Phone: Instructions* Name Dates Details Patient Instructions Indication:Left hip pain Start:11-Sep-2020 Instruction Type:Provider Instructions for Treatment How to Access Health Informa tion Online using Patient Portal and [employer] Apps Indication:Left hip pain Start:11-Sep-2020 Instruction Type:Patient Education How to access health informa tion online Indication:Non-smoker Start:23-Feb-2020 Instruction Type:Patient Education How to access health informa tion online - Detail Indication:Non-smoker Start:23-Feb-2020 Instruction Type:Patient Education Patient Instructions Indication:Non-smoker Start:23-Feb-2020 Instruction Type:Provider Instructions for Treatment How to access health informa tion online Indication:Non-smoker Start:17-Sep-2019 Instruction Type:Patient Education How to access health informa tion online - Detail Indication:Non-smoker Start:17-Sep-2019 Instruction Type:Patient Education Patient Instructions Indication:Non-smoker Start:17-Sep-2019 Instruction Type:Provider Instructions for Treatment How to access health informa tion online Indication:BMI 35.0-35.9,adult Start:23-Jun-2019 Instruction Type:Patient Education How to access health informa tion online - Detail Indication:BMI 35.0-35.9,adult Start:23-Jun-2019 Instruction Type:Patient Education Patient Instructions Indication:BMI 35.0-35.9,adult Start:23-Jun-2019 Instruction Type:Provider Instructions for Treatment How to access health informa tion online Indication:Non-smoker Start:09-Mar-2019 Instruction Type:Patient Education How to access health informa tion online - Detail Indication:Non-smoker Start:09-Mar-2019 Instruction Type:Patient Education Patient Instructions Indication:Non-smoker Start:09-Mar-2019 Instruction Type:Provider Instructions for Treatment How to access health informa tion online Indication:Physical exam for work/school/camp (Renamed from Encounter for school health examination) Start:25-Feb-2019 Instruction Type:Patient Education How to access health informa tion online - Detail Indication:Physical exam for work/school/camp (Renamed from Encounter for school health examination) Start:25-Feb-2019 Instruction Type:Patient Education Patient Instructions Indication:Physical exam for work/school/camp (Renamed from Encounter for school health examination) Start:25-Feb-2019 Instruction Type:Provider Instructions for Treatment How to access health informa tion online Indication:Non-smoker Start:23-Feb-2019 Instruction Type:Patient Education How to access health informa tion online - Detail Indication:Non-smoker Start:23-Feb-2019 Instruction Type:Patient Education Patient Instructions Indication:Non-smoker Start:23-Feb-2019 Instruction Type:Provider Instructions for Treatment How to access health informa tion online Indication:Non-smoker Start:29-Jan-2019 Instruction Type:Patient Education How to access health informa tion online - Detail Indication:Non-smoker Start:29-Jan-2019 Instruction Type:Patient Education Patient Instructions Indication:Non-smoker Start:29-Jan-2019 Instruction Type:Provider Instructions for Treatment How to access health informa tion online Indication:Non-smoker Start:24-Sep-2018 Instruction Type:Patient Education How to access health informa tion online - Detail Indication:Non-smoker Start:24-Sep-2018 Instruction Type:Patient Education Patient Instructions Indication:Non-smoker Start:24-Sep-2018 Instruction Type:Provider Instructions for Treatment How to access health informa tion online Indication:BMI 35.0-35.9,adult Start:18-Jun-2018 Instruction Type:Patient Education How to access health informa tion online - Detail Indication:BMI 35.0-35.9,adult Start:18-Jun-2018 Instruction Type:Patient Education Patient Instructions Indication:BMI 35.0-35.9,adult Start:18-Jun-2018 Instruction Type:Provider Instructions for Treatment How to access health informa tion online Indication:Non-smoker Start:28-Apr-2018 Instruction Type:Patient Education How to access health informa tion online - Detail Indication:Non-smoker Start:28-Apr-2018 Instruction Type:Patient Education Patient Instructions Indication:Non-smoker Start:28-Apr-2018 Instruction Type:Provider Instructions for Treatment How to access health informa tion online Indication:Non-smoker Start:16-Apr-2018 Instruction Type:Patient Education How to access health informa tion online - Detail Indication:Non-smoker Start:16-Apr-2018 Instruction Type:Patient Education Patient Instructions Indication:Back pain, lumbosacral Start:16-Apr-2018 Instruction Type:Provider Instructions for Treatment How to access health informa tion online Indication:BMI 35.0-35.9,adult Start:26-Feb-2018 Instruction Type:Patient Education How to access health informa tion online - Detail Indication:BMI 35.0-35.9,adult Start:26-Feb-2018 Instruction Type:Patient Education Patient Instructions Indication:BMI 35.0-35.9,adult Start:26-Feb-2018 Instruction Type:Provider Instructions for Treatment How to access health informa tion online Indication:Nonsmoker Start:27-Feb-2017 Instruction Type:Patient Education How to access health informa tion online - Detail Indication:Nonsmoker Start:27-Feb-2017 Instruction Type:Patient Education Patient Instructions Indication:Nonsmoker Start:27-Feb-2017 Instruction Type:Provider Instructions for Treatment How to access health informa tion online Indication:Nonsmoker Start:06-Sep-2016 Instruction Type:Patient Education How to access health informa tion online - Detail Indication:Nonsmoker Start:06-Sep-2016 Instruction Type:Patient Education Patient Instructions Indication:Nonsmoker Start:06-Sep-2016 Instruction Type:Provider Instructions for Treatment How to access health informa tion online Indication:Neoplasm of uncertain behavior of skin Start:08-May-2016 Instruction Type:Patient Education How to access health informa tion online - Detail Indication:Neoplasm of uncertain behavior of skin Start:08-May-2016 Instruction Type:Patient Education Patient Instructions Indication:Neoplasm of uncertain behavior of skin Start:08-May-2016 Instruction Type:Provider Instructions for Treatment How to access health informa tion online Indication:BMI 38.0-38.9,adult Start:23-Apr-2016 Instruction Type:Patient Education How to access health informa tion online - Detail Indication:BMI 38.0-38.9,adult Start:23-Apr-2016 Instruction Type:Patient Education Patient Instructions Indication:BMI 38.0-38.9,adult Start:23-Apr-2016 Instruction Type:Provider Instructions for Treatment How to access health informa tion online Indication:Annual physical exam Start:17-Feb-2014 Instruction Type:Patient Education How to access health informa tion online - Detail Indication:Annual physical exam Start:17-Feb-2014 Instruction Type:Patient Education How to access health informa tion online Indication:Benign essential hypertension Start:02-Dec-2013 Instruction Type:Patient Education How to access health informa tion online - Detail Indication:Benign essential hypertension Start:02-Dec-2013 Instruction Type:Patient Education Patient Instructions Indication:Benign essential hypertension Start:02-Dec-2013 Instruction Type:Provider Instructions for Treatment Patient Instructions Indication:Benign essential hypertension Start:23-Sep-2012 Instruction Type:Provider Instructions for Treatment Patient Instructions Indication:Benign essential hypertension Start:13-Feb-2012 Instruction Type:Provider Instructions for Treatment [facility]; [facility] Work Phone: Instructions* Name Dates Details Patient Instructions Indication:BMI 33.0-33.9,adult Start:08-Feb-2021 Instruction Type:Provider Instructions for Treatment How to Access Health Informa tion Online using Patient Portal and [employer] Apps Indication:BMI 33.0-33.9,adult Start:08-Feb-2021 Instruction Type:Patient Education Patient Instructions Indication:Left hip pain Start:11-Sep-2020 Instruction Type:Provider Instructions for Treatment How to Access Health Informa tion Online using Patient Portal and [employer] Apps Indication:Left hip pain Start:11-Sep-2020 Instruction Type:Patient Education How to access health informa tion online Indication:Non-smoker Start:23-Feb-2020 Instruction Type:Patient Education How to access health informa tion online - Detail Indication:Non-smoker Start:23-Feb-2020 Instruction Type:Patient Education Patient Instructions Indication:Non-smoker Start:23-Feb-2020 Instruction Type:Provider Instructions for Treatment How to access health informa tion online Indication:Non-smoker Start:17-Sep-2019 Instruction Type:Patient Education How to access health informa tion online - Detail Indication:Non-smoker Start:17-Sep-2019 Instruction Type:Patient Education Patient Instructions Indication:Non-smoker Start:17-Sep-2019 Instruction Type:Provider Instructions for Treatment How to access health informa tion online Indication:BMI 35.0-35.9,adult Start:23-Jun-2019 Instruction Type:Patient Education How to access health informa tion online - Detail Indication:BMI 35.0-35.9,adult Start:23-Jun-2019 Instruction Type:Patient Education Patient Instructions Indication:BMI 35.0-35.9,adult Start:23-Jun-2019 Instruction Type:Provider Instructions for Treatment How to access health informa tion online Indication:Non-smoker Start:09-Mar-2019 Instruction Type:Patient Education How to access health informa tion online - Detail Indication:Non-smoker Start:09-Mar-2019 Instruction Type:Patient Education Patient Instructions Indication:Non-smoker Start:09-Mar-2019 Instruction Type:Provider Instructions for Treatment How to access health informa tion online Indication:Physical exam for work/school/camp (Renamed from Encounter for school health examination) Start:25-Feb-2019 Instruction Type:Patient Education How to access health informa tion online - Detail Indication:Physical exam for work/school/camp (Renamed from Encounter for school health examination) Start:25-Feb-2019 Instruction Type:Patient Education Patient Instructions Indication:Physical exam for work/school/camp (Renamed from Encounter for school health examination) Start:25-Feb-2019 Instruction Type:Provider Instructions for Treatment How to access health informa tion online Indication:Non-smoker Start:23-Feb-2019 Instruction Type:Patient Education How to access health informa tion online - Detail Indication:Non-smoker Start:23-Feb-2019 Instruction Type:Patient Education Patient Instructions Indication:Non-smoker Start:23-Feb-2019 Instruction Type:Provider Instructions for Treatment How to access health informa tion online Indication:Non-smoker Start:29-Jan-2019 Instruction Type:Patient Education How to access health informa tion online - Detail Indication:Non-smoker Start:29-Jan-2019 Instruction Type:Patient Education Patient Instructions Indication:Non-smoker Start:29-Jan-2019 Instruction Type:Provider Instructions for Treatment How to access health informa tion online Indication:Non-smoker Start:24-Sep-2018 Instruction Type:Patient Education How to access health informa tion online - Detail Indication:Non-smoker Start:24-Sep-2018 Instruction Type:Patient Education Patient Instructions Indication:Non-smoker Start:24-Sep-2018 Instruction Type:Provider Instructions for Treatment How to access health informa tion online Indication:BMI 35.0-35.9,adult Start:18-Jun-2018 Instruction Type:Patient Education How to access health informa tion online - Detail Indication:BMI 35.0-35.9,adult Start:18-Jun-2018 Instruction Type:Patient Education Patient Instructions Indication:BMI 35.0-35.9,adult Start:18-Jun-2018 Instruction Type:Provider Instructions for Treatment How to access health informa tion online Indication:Non-smoker Start:28-Apr-2018 Instruction Type:Patient Education How to access health informa tion online - Detail Indication:Non-smoker Start:28-Apr-2018 Instruction Type:Patient Education Patient Instructions Indication:Non-smoker Start:28-Apr-2018 Instruction Type:Provider Instructions for Treatment How to access health informa tion online Indication:Non-smoker Start:16-Apr-2018 Instruction Type:Patient Education How to access health informa tion online - Detail Indication:Non-smoker Start:16-Apr-2018 Instruction Type:Patient Education Patient Instructions Indication:Back pain, lumbosacral Start:16-Apr-2018 Instruction Type:Provider Instructions for Treatment How to access health informa tion online Indication:BMI 35.0-35.9,adult Start:26-Feb-2018 Instruction Type:Patient Education How to access health informa tion online - Detail Indication:BMI 35.0-35.9,adult Start:26-Feb-2018 Instruction Type:Patient Education Patient Instructions Indication:BMI 35.0-35.9,adult Start:26-Feb-2018 Instruction Type:Provider Instructions for Treatment How to access health informa tion online Indication:Nonsmoker Start:27-Feb-2017 Instruction Type:Patient Education How to access health informa tion online - Detail Indication:Nonsmoker Start:27-Feb-2017 Instruction Type:Patient Education Patient Instructions Indication:Nonsmoker Start:27-Feb-2017 Instruction Type:Provider Instructions for Treatment How to access health informa tion online Indication:Nonsmoker Start:06-Sep-2016 Instruction Type:Patient Education How to access health informa tion online - Detail Indication:Nonsmoker Start:06-Sep-2016 Instruction Type:Patient Education Patient Instructions Indication:Nonsmoker Start:06-Sep-2016 Instruction Type:Provider Instructions for Treatment How to access health informa tion online Indication:Neoplasm of uncertain behavior of skin Start:08-May-2016 Instruction Type:Patient Education How to access health informa tion online - Detail Indication:Neoplasm of uncertain behavior of skin Start:08-May-2016 Instruction Type:Patient Education Patient Instructions Indication:Neoplasm of uncertain behavior of skin Start:08-May-2016 Instruction Type:Provider Instructions for Treatment How to access health informa tion online Indication:BMI 38.0-38.9,adult Start:23-Apr-2016 Instruction Type:Patient Education How to access health informa tion online - Detail Indication:BMI 38.0-38.9,adult Start:23-Apr-2016 Instruction Type:Patient Education Patient Instructions Indication:BMI 38.0-38.9,adult Start:23-Apr-2016 Instruction Type:Provider Instructions for Treatment How to access health informa tion online Indication:Annual physical exam Start:17-Feb-2014 Instruction Type:Patient Education How to access health informa tion online - Detail Indication:Annual physical exam Start:17-Feb-2014 Instruction Type:Patient Education How to access health informa tion online Indication:Benign essential hypertension Start:02-Dec-2013 Instruction Type:Patient Education How to access health informa tion online - Detail Indication:Benign essential hypertension Start:02-Dec-2013 Instruction Type:Patient Education Patient Instructions Indication:Benign essential hypertension Start:02-Dec-2013 Instruction Type:Provider Instructions for Treatment Patient Instructions Indication:Benign essential hypertension Start:23-Sep-2012 Instruction Type:Provider Instructions for Treatment Patient Instructions Indication:Benign essential hypertension Start:13-Feb-2012 Instruction Type:Provider Instructions for Treatment [facility]; [facility] Work Phone: Instructions* Name Dates Details Patient Instructions Indication:BMI 33.0-33.9,adult Start:08-Feb-2021 Instruction Type:Provider Instructions for Treatment How to Access Health Informa tion Online using Patient Portal and [employer] Apps Indication:BMI 33.0-33.9,adult Start:08-Feb-2021 Instruction Type:Patient Education Patient Instructions Indication:Left hip pain Start:11-Sep-2020 Instruction Type:Provider Instructions for Treatment How to Access Health Informa tion Online using Patient Portal and [employer] Apps Indication:Left hip pain Start:11-Sep-2020 Instruction Type:Patient Education How to access health informa tion online Indication:Non-smoker Start:23-Feb-2020 Instruction Type:Patient Education How to access health informa tion online - Detail Indication:Non-smoker Start:23-Feb-2020 Instruction Type:Patient Education Patient Instructions Indication:Non-smoker Start:23-Feb-2020 Instruction Type:Provider Instructions for Treatment How to access health informa tion online Indication:Non-smoker Start:17-Sep-2019 Instruction Type:Patient Education How to access health informa tion online - Detail Indication:Non-smoker Start:17-Sep-2019 Instruction Type:Patient Education Patient Instructions Indication:Non-smoker Start:17-Sep-2019 Instruction Type:Provider Instructions for Treatment How to access health informa tion online Indication:BMI 35.0-35.9,adult Start:23-Jun-2019 Instruction Type:Patient Education How to access health informa tion online - Detail Indication:BMI 35.0-35.9,adult Start:23-Jun-2019 Instruction Type:Patient Education Patient Instructions Indication:BMI 35.0-35.9,adult Start:23-Jun-2019 Instruction Type:Provider Instructions for Treatment How to access health informa tion online Indication:Non-smoker Start:09-Mar-2019 Instruction Type:Patient Education How to access health informa tion online - Detail Indication:Non-smoker Start:09-Mar-2019 Instruction Type:Patient Education Patient Instructions Indication:Non-smoker Start:09-Mar-2019 Instruction Type:Provider Instructions for Treatment How to access health informa tion online Indication:Physical exam for work/school/camp (Renamed from Encounter for school health examination) Start:25-Feb-2019 Instruction Type:Patient Education How to access health informa tion online - Detail Indication:Physical exam for work/school/camp (Renamed from Encounter for school health examination) Start:25-Feb-2019 Instruction Type:Patient Education Patient Instructions Indication:Physical exam for work/school/camp (Renamed from Encounter for school health examination) Start:25-Feb-2019 Instruction Type:Provider Instructions for Treatment How to access health informa tion online Indication:Non-smoker Start:23-Feb-2019 Instruction Type:Patient Education How to access health informa tion online - Detail Indication:Non-smoker Start:23-Feb-2019 Instruction Type:Patient Education Patient Instructions Indication:Non-smoker Start:23-Feb-2019 Instruction Type:Provider Instructions for Treatment How to access health informa tion online Indication:Non-smoker Start:29-Jan-2019 Instruction Type:Patient Education How to access health informa tion online - Detail Indication:Non-smoker Start:29-Jan-2019 Instruction Type:Patient Education Patient Instructions Indication:Non-smoker Start:29-Jan-2019 Instruction Type:Provider Instructions for Treatment How to access health informa tion online Indication:Non-smoker Start:24-Sep-2018 Instruction Type:Patient Education How to access health informa tion online - Detail Indication:Non-smoker Start:24-Sep-2018 Instruction Type:Patient Education Patient Instructions Indication:Non-smoker Start:24-Sep-2018 Instruction Type:Provider Instructions for Treatment How to access health informa tion online Indication:BMI 35.0-35.9,adult Start:18-Jun-2018 Instruction Type:Patient Education How to access health informa tion online - Detail Indication:BMI 35.0-35.9,adult Start:18-Jun-2018 Instruction Type:Patient Education Patient Instructions Indication:BMI 35.0-35.9,adult Start:18-Jun-2018 Instruction Type:Provider Instructions for Treatment How to access health informa tion online Indication:Non-smoker Start:28-Apr-2018 Instruction Type:Patient Education How to access health informa tion online - Detail Indication:Non-smoker Start:28-Apr-2018 Instruction Type:Patient Education Patient Instructions Indication:Non-smoker Start:28-Apr-2018 Instruction Type:Provider Instructions for Treatment How to access health informa tion online Indication:Non-smoker Start:16-Apr-2018 Instruction Type:Patient Education How to access health informa tion online - Detail Indication:Non-smoker Start:16-Apr-2018 Instruction Type:Patient Education Patient Instructions Indication:Back pain, lumbosacral Start:16-Apr-2018 Instruction Type:Provider Instructions for Treatment How to access health informa tion online Indication:BMI 35.0-35.9,adult Start:26-Feb-2018 Instruction Type:Patient Education How to access health informa tion online - Detail Indication:BMI 35.0-35.9,adult Start:26-Feb-2018 Instruction Type:Patient Education Patient Instructions Indication:BMI 35.0-35.9,adult Start:26-Feb-2018 Instruction Type:Provider Instructions for Treatment How to access health informa tion online Indication:Nonsmoker Start:27-Feb-2017 Instruction Type:Patient Education How to access health informa tion online - Detail Indication:Nonsmoker Start:27-Feb-2017 Instruction Type:Patient Education Patient Instructions Indication:Nonsmoker Start:27-Feb-2017 Instruction Type:Provider Instructions for Treatment How to access health informa tion online Indication:Nonsmoker Start:06-Sep-2016 Instruction Type:Patient Education How to access health informa tion online - Detail Indication:Nonsmoker Start:06-Sep-2016 Instruction Type:Patient Education Patient Instructions Indication:Nonsmoker Start:06-Sep-2016 Instruction Type:Provider Instructions for Treatment How to access health informa tion online Indication:Neoplasm of uncertain behavior of skin Start:08-May-2016 Instruction Type:Patient Education How to access health informa tion online - Detail Indication:Neoplasm of uncertain behavior of skin Start:08-May-2016 Instruction Type:Patient Education Patient Instructions Indication:Neoplasm of uncertain behavior of skin Start:08-May-2016 Instruction Type:Provider Instructions for Treatment How to access health informa tion online Indication:BMI 38.0-38.9,adult Start:23-Apr-2016 Instruction Type:Patient Education How to access health informa tion online - Detail Indication:BMI 38.0-38.9,adult Start:23-Apr-2016 Instruction Type:Patient Education Patient Instructions Indication:BMI 38.0-38.9,adult Start:23-Apr-2016 Instruction Type:Provider Instructions for Treatment How to access health informa tion online Indication:Annual physical exam Start:17-Feb-2014 Instruction Type:Patient Education How to access health informa tion online - Detail Indication:Annual physical exam Start:17-Feb-2014 Instruction Type:Patient Education How to access health informa tion online Indication:Benign essential hypertension Start:02-Dec-2013 Instruction Type:Patient Education How to access health informa tion online - Detail Indication:Benign essential hypertension Start:02-Dec-2013 Instruction Type:Patient Education Patient Instructions Indication:Benign essential hypertension Start:02-Dec-2013 Instruction Type:Provider Instructions for Treatment Patient Instructions Indication:Benign essential hypertension Start:23-Sep-2012 Instruction Type:Provider Instructions for Treatment Patient Instructions Indication:Benign essential hypertension Start:13-Feb-2012 Instruction Type:Provider Instructions for Treatment [facility]; [facility] Work Phone: Instructions* Name Dates Details Patient Instructions Indication:Non-smoker Start:28-Sep-2021 Instruction Type:Provider Instructions for Treatment How to Access Health Informa tion Online using Patient Portal and [employer] Indication:Non-smoker Start:28-Sep-2021 Instruction Type:Patient Education Patient Instructions Indication:BMI 33.0-33.9,adult Start:08-Feb-2021 Instruction Type:Provider Instructions for Treatment How to Access Health Informa tion Online using Patient Portal and [employer] Apps Indication:BMI 33.0-33.9,adult Start:08-Feb-2021 Instruction Type:Patient Education Patient Instructions Indication:Left hip pain Start:11-Sep-2020 Instruction Type:Provider Instructions for Treatment How to Access Health Informa tion Online using Patient Portal and [employer] Apps Indication:Left hip pain Start:11-Sep-2020 Instruction Type:Patient Education How to access health informa tion online Indication:Non-smoker Start:23-Feb-2020 Instruction Type:Patient Education How to access health informa tion online - Detail Indication:Non-smoker Start:23-Feb-2020 Instruction Type:Patient Education Patient Instructions Indication:Non-smoker Start:23-Feb-2020 Instruction Type:Provider Instructions for Treatment How to access health informa tion online Indication:Non-smoker Start:17-Sep-2019 Instruction Type:Patient Education How to access health informa tion online - Detail Indication:Non-smoker Start:17-Sep-2019 Instruction Type:Patient Education Patient Instructions Indication:Non-smoker Start:17-Sep-2019 Instruction Type:Provider Instructions for Treatment How to access health informa tion online Indication:BMI 35.0-35.9,adult Start:23-Jun-2019 Instruction Type:Patient Education How to access health informa tion online - Detail Indication:BMI 35.0-35.9,adult Start:23-Jun-2019 Instruction Type:Patient Education Patient Instructions Indication:BMI 35.0-35.9,adult Start:23-Jun-2019 Instruction Type:Provider Instructions for Treatment How to access health informa tion online Indication:Non-smoker Start:09-Mar-2019 Instruction Type:Patient Education How to access health informa tion online - Detail Indication:Non-smoker Start:09-Mar-2019 Instruction Type:Patient Education Patient Instructions Indication:Non-smoker Start:09-Mar-2019 Instruction Type:Provider Instructions for Treatment How to access health informa tion online Indication:Physical exam for work/school/camp (Renamed from Encounter for school health examination) Start:25-Feb-2019 Instruction Type:Patient Education How to access health informa tion online - Detail Indication:Physical exam for work/school/camp (Renamed from Encounter for school health examination) Start:25-Feb-2019 Instruction Type:Patient Education Patient Instructions Indication:Physical exam for work/school/camp (Renamed from Encounter for school health examination) Start:25-Feb-2019 Instruction Type:Provider Instructions for Treatment How to access health informa tion online Indication:Non-smoker Start:23-Feb-2019 Instruction Type:Patient Education How to access health informa tion online - Detail Indication:Non-smoker Start:23-Feb-2019 Instruction Type:Patient Education Patient Instructions Indication:Non-smoker Start:23-Feb-2019 Instruction Type:Provider Instructions for Treatment How to access health informa tion online Indication:Non-smoker Start:29-Jan-2019 Instruction Type:Patient Education How to access health informa tion online - Detail Indication:Non-smoker Start:29-Jan-2019 Instruction Type:Patient Education Patient Instructions Indication:Non-smoker Start:29-Jan-2019 Instruction Type:Provider Instructions for Treatment How to access health informa tion online Indication:Non-smoker Start:24-Sep-2018 Instruction Type:Patient Education How to access health informa tion online - Detail Indication:Non-smoker Start:24-Sep-2018 Instruction Type:Patient Education Patient Instructions Indication:Non-smoker Start:24-Sep-2018 Instruction Type:Provider Instructions for Treatment How to access health informa tion online Indication:BMI 35.0-35.9,adult Start:18-Jun-2018 Instruction Type:Patient Education How to access health informa tion online - Detail Indication:BMI 35.0-35.9,adult Start:18-Jun-2018 Instruction Type:Patient Education Patient Instructions Indication:BMI 35.0-35.9,adult Start:18-Jun-2018 Instruction Type:Provider Instructions for Treatment How to access health informa tion online Indication:Non-smoker Start:28-Apr-2018 Instruction Type:Patient Education How to access health informa tion online - Detail Indication:Non-smoker Start:28-Apr-2018 Instruction Type:Patient Education Patient Instructions Indication:Non-smoker Start:28-Apr-2018 Instruction Type:Provider Instructions for Treatment How to access health informa tion online Indication:Non-smoker Start:16-Apr-2018 Instruction Type:Patient Education How to access health informa tion online - Detail Indication:Non-smoker Start:16-Apr-2018 Instruction Type:Patient Education Patient Instructions Indication:Back pain, lumbosacral Start:16-Apr-2018 Instruction Type:Provider Instructions for Treatment How to access health informa tion online Indication:BMI 35.0-35.9,adult Start:26-Feb-2018 Instruction Type:Patient Education How to access health informa tion online - Detail Indication:BMI 35.0-35.9,adult Start:26-Feb-2018 Instruction Type:Patient Education Patient Instructions Indication:BMI 35.0-35.9,adult Start:26-Feb-2018 Instruction Type:Provider Instructions for Treatment How to access health informa tion online Indication:Nonsmoker Start:27-Feb-2017 Instruction Type:Patient Education How to access health informa tion online - Detail Indication:Nonsmoker Start:27-Feb-2017 Instruction Type:Patient Education Patient Instructions Indication:Nonsmoker Start:27-Feb-2017 Instruction Type:Provider Instructions for Treatment How to access health informa tion online Indication:Nonsmoker Start:06-Sep-2016 Instruction Type:Patient Education How to access health informa tion online - Detail Indication:Nonsmoker Start:06-Sep-2016 Instruction Type:Patient Education Patient Instructions Indication:Nonsmoker Start:06-Sep-2016 Instruction Type:Provider Instructions for Treatment How to access health informa tion online Indication:Neoplasm of uncertain behavior of skin Start:08-May-2016 Instruction Type:Patient Education How to access health informa tion online - Detail Indication:Neoplasm of uncertain behavior of skin Start:08-May-2016 Instruction Type:Patient Education Patient Instructions Indication:Neoplasm of uncertain behavior of skin Start:08-May-2016 Instruction Type:Provider Instructions for Treatment How to access health informa tion online Indication:BMI 38.0-38.9,adult Start:23-Apr-2016 Instruction Type:Patient Education How to access health informa tion online - Detail Indication:BMI 38.0-38.9,adult Start:23-Apr-2016 Instruction Type:Patient Education Patient Instructions Indication:BMI 38.0-38.9,adult Start:23-Apr-2016 Instruction Type:Provider Instructions for Treatment How to access health informa tion online Indication:Annual physical exam Start:17-Feb-2014 Instruction Type:Patient Education How to access health informa tion online - Detail Indication:Annual physical exam Start:17-Feb-2014 Instruction Type:Patient Education How to access health informa tion online Indication:Benign essential hypertension Start:02-Dec-2013 Instruction Type:Patient Education How to access health informa tion online - Detail Indication:Benign essential hypertension Start:02-Dec-2013 Instruction Type:Patient Education Patient Instructions Indication:Benign essential hypertension Start:02-Dec-2013 Instruction Type:Provider Instructions for Treatment Patient Instructions Indication:Benign essential hypertension Start:23-Sep-2012 Instruction Type:Provider Instructions for Treatment Patient Instructions Indication:Benign essential hypertension Start:13-Feb-2012 Instruction Type:Provider Instructions for Treatment [facility]; [facility] Work Phone: Instructions* Name Dates Details Patient Instructions Indication:Non-smoker Start:28-Sep-2021 Instruction Type:Provider Instructions for Treatment How to Access Health Informa tion Online using Patient Portal and [employer] Apps Indication:Non-smoker Start:28-Sep-2021 Instruction Type:Patient Education Patient Instructions Indication:BMI 33.0-33.9,adult Start:08-Feb-2021 Instruction Type:Provider Instructions for Treatment How to Access Health Informa tion Online using Patient Portal and [employer] Apps Indication:BMI 33.0-33.9,adult Start:08-Feb-2021 Instruction Type:Patient Education Patient Instructions Indication:Left hip pain Start:11-Sep-2020 Instruction Type:Provider Instructions for Treatment How to Access Health Informa tion Online using Patient Portal and [employer] Apps Indication:Left hip pain Start:11-Sep-2020 Instruction Type:Patient Education How to access health informa tion online Indication:Non-smoker Start:23-Feb-2020 Instruction Type:Patient Education How to access health informa tion online - Detail Indication:Non-smoker Start:23-Feb-2020 Instruction Type:Patient Education Patient Instructions Indication:Non-smoker Start:23-Feb-2020 Instruction Type:Provider Instructions for Treatment How to access health informa tion online Indication:Non-smoker Start:17-Sep-2019 Instruction Type:Patient Education How to access health informa tion online - Detail Indication:Non-smoker Start:17-Sep-2019 Instruction Type:Patient Education Patient Instructions Indication:Non-smoker Start:17-Sep-2019 Instruction Type:Provider Instructions for Treatment How to access health informa tion online Indication:BMI 35.0-35.9,adult Start:23-Jun-2019 Instruction Type:Patient Education How to access health informa tion online - Detail Indication:BMI 35.0-35.9,adult Start:23-Jun-2019 Instruction Type:Patient Education Patient Instructions Indication:BMI 35.0-35.9,adult Start:23-Jun-2019 Instruction Type:Provider Instructions for Treatment How to access health informa tion online Indication:Non-smoker Start:09-Mar-2019 Instruction Type:Patient Education How to access health informa tion online - Detail Indication:Non-smoker Start:09-Mar-2019 Instruction Type:Patient Education Patient Instructions Indication:Non-smoker Start:09-Mar-2019 Instruction Type:Provider Instructions for Treatment How to access health informa tion online Indication:Physical exam for work/school/camp (Renamed from Encounter for school health examination) Start:25-Feb-2019 Instruction Type:Patient Education How to access health informa tion online - Detail Indication:Physical exam for work/school/camp (Renamed from Encounter for school health examination) Start:25-Feb-2019 Instruction Type:Patient Education Patient Instructions Indication:Physical exam for work/school/camp (Renamed from Encounter for school health examination) Start:25-Feb-2019 Instruction Type:Provider Instructions for Treatment How to access health informa tion online Indication:Non-smoker Start:23-Feb-2019 Instruction Type:Patient Education How to access health informa tion online - Detail Indication:Non-smoker Start:23-Feb-2019 Instruction Type:Patient Education Patient Instructions Indication:Non-smoker Start:23-Feb-2019 Instruction Type:Provider Instructions for Treatment How to access health informa tion online Indication:Non-smoker Start:29-Jan-2019 Instruction Type:Patient Education How to access health informa tion online - Detail Indication:Non-smoker Start:29-Jan-2019 Instruction Type:Patient Education Patient Instructions Indication:Non-smoker Start:29-Jan-2019 Instruction Type:Provider Instructions for Treatment How to access health informa tion online Indication:Non-smoker Start:24-Sep-2018 Instruction Type:Patient Education How to access health informa tion online - Detail Indication:Non-smoker Start:24-Sep-2018 Instruction Type:Patient Education Patient Instructions Indication:Non-smoker Start:24-Sep-2018 Instruction Type:Provider Instructions for Treatment How to access health informa tion online Indication:BMI 35.0-35.9,adult Start:18-Jun-2018 Instruction Type:Patient Education How to access health informa tion online - Detail Indication:BMI 35.0-35.9,adult Start:18-Jun-2018 Instruction Type:Patient Education Patient Instructions Indication:BMI 35.0-35.9,adult Start:18-Jun-2018 Instruction Type:Provider Instructions for Treatment How to access health informa tion online Indication:Non-smoker Start:28-Apr-2018 Instruction Type:Patient Education How to access health informa tion online - Detail Indication:Non-smoker Start:28-Apr-2018 Instruction Type:Patient Education Patient Instructions Indication:Non-smoker Start:28-Apr-2018 Instruction Type:Provider Instructions for Treatment How to access health informa tion online Indication:Non-smoker Start:16-Apr-2018 Instruction Type:Patient Education How to access health informa tion online - Detail Indication:Non-smoker Start:16-Apr-2018 Instruction Type:Patient Education Patient Instructions Indication:Back pain, lumbosacral Start:16-Apr-2018 Instruction Type:Provider Instructions for Treatment How to access health informa tion online Indication:BMI 35.0-35.9,adult Start:26-Feb-2018 Instruction Type:Patient Education How to access health informa tion online - Detail Indication:BMI 35.0-35.9,adult Start:26-Feb-2018 Instruction Type:Patient Education Patient Instructions Indication:BMI 35.0-35.9,adult Start:26-Feb-2018 Instruction Type:Provider Instructions for Treatment How to access health informa tion online Indication:Nonsmoker Start:27-Feb-2017 Instruction Type:Patient Education How to access health informa tion online - Detail Indication:Nonsmoker Start:27-Feb-2017 Instruction Type:Patient Education Patient Instructions Indication:Nonsmoker Start:27-Feb-2017 Instruction Type:Provider Instructions for Treatment How to access health informa tion online Indication:Nonsmoker Start:06-Sep-2016 Instruction Type:Patient Education How to access health informa tion online - Detail Indication:Nonsmoker Start:06-Sep-2016 Instruction Type:Patient Education Patient Instructions Indication:Nonsmoker Start:06-Sep-2016 Instruction Type:Provider Instructions for Treatment How to access health informa tion online Indication:Neoplasm of uncertain behavior of skin Start:08-May-2016 Instruction Type:Patient Education How to access health informa tion online - Detail Indication:Neoplasm of uncertain behavior of skin Start:08-May-2016 Instruction Type:Patient Education Patient Instructions Indication:Neoplasm of uncertain behavior of skin Start:08-May-2016 Instruction Type:Provider Instructions for Treatment How to access health informa tion online Indication:BMI 38.0-38.9,adult Start:23-Apr-2016 Instruction Type:Patient Education How to access health informa tion online - Detail Indication:BMI 38.0-38.9,adult Start:23-Apr-2016 Instruction Type:Patient Education Patient Instructions Indication:BMI 38.0-38.9,adult Start:23-Apr-2016 Instruction Type:Provider Instructions for Treatment How to access health informa tion online Indication:Annual physical exam Start:17-Feb-2014 Instruction Type:Patient Education How to access health informa tion online - Detail Indication:Annual physical exam Start:17-Feb-2014 Instruction Type:Patient Education How to access health informa tion online Indication:Benign essential hypertension Start:02-Dec-2013 Instruction Type:Patient Education How to access health informa tion online - Detail Indication:Benign essential hypertension Start:02-Dec-2013 Instruction Type:Patient Education Patient Instructions Indication:Benign essential hypertension Start:02-Dec-2013 Instruction Type:Provider Instructions for Treatment Patient Instructions Indication:Benign essential hypertension Start:23-Sep-2012 Instruction Type:Provider Instructions for Treatment Patient Instructions Indication:Benign essential hypertension Start:13-Feb-2012 Instruction Type:Provider Instructions for Treatment [facility]; [facility] Work Phone: Instructions* Name Dates Details How to Access Health Informa tion Online using Patient Portal and [employer] Apps Indication:Non-smoker Start:28-Feb-2022 Instruction Type:Patient Education Patient Instructions Indication:Non-smoker Start:28-Feb-2022 Instruction Type:Provider Instructions for Treatment Patient Instructions Indication:Non-smoker Start:28-Sep-2021 Instruction Type:Provider Instructions for Treatment How to Access Health Informa tion Online using Patient Portal and [employer] Apps Indication:Non-smoker Start:28-Sep-2021 Instruction Type:Patient Education Patient Instructions Indication:BMI 33.0-33.9,adult Start:08-Feb-2021 Instruction Type:Provider Instructions for Treatment How to Access Health Informa tion Online using Patient Portal and [employer] Apps Indication:BMI 33.0-33.9,adult Start:08-Feb-2021 Instruction Type:Patient Education Patient Instructions Indication:Left hip pain Start:11-Sep-2020 Instruction Type:Provider Instructions for Treatment How to Access Health Informa tion Online using Patient Portal and [employer] Apps Indication:Left hip pain Start:11-Sep-2020 Instruction Type:Patient Education How to access health informa tion online Indication:Non-smoker Start:23-Feb-2020 Instruction Type:Patient Education How to access health informa tion online - Detail Indication:Non-smoker Start:23-Feb-2020 Instruction Type:Patient Education Patient Instructions Indication:Non-smoker Start:23-Feb-2020 Instruction Type:Provider Instructions for Treatment How to access health informa tion online Indication:Non-smoker Start:17-Sep-2019 Instruction Type:Patient Education How to access health informa tion online - Detail Indication:Non-smoker Start:17-Sep-2019 Instruction Type:Patient Education Patient Instructions Indication:Non-smoker Start:17-Sep-2019 Instruction Type:Provider Instructions for Treatment How to access health informa tion online Indication:BMI 35.0-35.9,adult Start:23-Jun-2019 Instruction Type:Patient Education How to access health informa tion online - Detail Indication:BMI 35.0-35.9,adult Start:23-Jun-2019 Instruction Type:Patient Education Patient Instructions Indication:BMI 35.0-35.9,adult Start:23-Jun-2019 Instruction Type:Provider Instructions for Treatment How to access health informa tion online Indication:Non-smoker Start:09-Mar-2019 Instruction Type:Patient Education How to access health informa tion online - Detail Indication:Non-smoker Start:09-Mar-2019 Instruction Type:Patient Education Patient Instructions Indication:Non-smoker Start:09-Mar-2019 Instruction Type:Provider Instructions for Treatment How to access health informa tion online Indication:Physical exam for work/school/camp (Renamed from Encounter for school health examination) Start:25-Feb-2019 Instruction Type:Patient Education How to access health informa tion online - Detail Indication:Physical exam for work/school/camp (Renamed from Encounter for school health examination) Start:25-Feb-2019 Instruction Type:Patient Education Patient Instructions Indication:Physical exam for work/school/camp (Renamed from Encounter for school health examination) Start:25-Feb-2019 Instruction Type:Provider Instructions for Treatment How to access health informa tion online Indication:Non-smoker Start:23-Feb-2019 Instruction Type:Patient Education How to access health informa tion online - Detail Indication:Non-smoker Start:23-Feb-2019 Instruction Type:Patient Education Patient Instructions Indication:Non-smoker Start:23-Feb-2019 Instruction Type:Provider Instructions for Treatment How to access health informa tion online Indication:Non-smoker Start:29-Jan-2019 Instruction Type:Patient Education How to access health informa tion online - Detail Indication:Non-smoker Start:29-Jan-2019 Instruction Type:Patient Education Patient Instructions Indication:Non-smoker Start:29-Jan-2019 Instruction Type:Provider Instructions for Treatment How to access health informa tion online Indication:Non-smoker Start:24-Sep-2018 Instruction Type:Patient Education How to access health informa tion online - Detail Indication:Non-smoker Start:24-Sep-2018 Instruction Type:Patient Education Patient Instructions Indication:Non-smoker Start:24-Sep-2018 Instruction Type:Provider Instructions for Treatment How to access health informa tion online Indication:BMI 35.0-35.9,adult Start:18-Jun-2018 Instruction Type:Patient Education How to access health informa tion online - Detail Indication:BMI 35.0-35.9,adult Start:18-Jun-2018 Instruction Type:Patient Education Patient Instructions Indication:BMI 35.0-35.9,adult Start:18-Jun-2018 Instruction Type:Provider Instructions for Treatment How to access health informa tion online Indication:Non-smoker Start:28-Apr-2018 Instruction Type:Patient Education How to access health informa tion online - Detail Indication:Non-smoker Start:28-Apr-2018 Instruction Type:Patient Education Patient Instructions Indication:Non-smoker Start:28-Apr-2018 Instruction Type:Provider Instructions for Treatment How to access health informa tion online Indication:Non-smoker Start:16-Apr-2018 Instruction Type:Patient Education How to access health informa tion online - Detail Indication:Non-smoker Start:16-Apr-2018 Instruction Type:Patient Education Patient Instructions Indication:Back pain, lumbosacral Start:16-Apr-2018 Instruction Type:Provider Instructions for Treatment How to access health informa tion online Indication:BMI 35.0-35.9,adult Start:26-Feb-2018 Instruction Type:Patient Education How to access health informa tion online - Detail Indication:BMI 35.0-35.9,adult Start:26-Feb-2018 Instruction Type:Patient Education Patient Instructions Indication:BMI 35.0-35.9,adult Start:26-Feb-2018 Instruction Type:Provider Instructions for Treatment How to access health informa tion online Indication:Nonsmoker Start:27-Feb-2017 Instruction Type:Patient Education How to access health informa tion online - Detail Indication:Nonsmoker Start:27-Feb-2017 Instruction Type:Patient Education Patient Instructions Indication:Nonsmoker Start:27-Feb-2017 Instruction Type:Provider Instructions for Treatment How to access health informa tion online Indication:Nonsmoker Start:06-Sep-2016 Instruction Type:Patient Education How to access health informa tion online - Detail Indication:Nonsmoker Start:06-Sep-2016 Instruction Type:Patient Education Patient Instructions Indication:Nonsmoker Start:06-Sep-2016 Instruction Type:Provider Instructions for Treatment How to access health informa tion online Indication:Neoplasm of uncertain behavior of skin Start:08-May-2016 Instruction Type:Patient Education How to access health informa tion online - Detail Indication:Neoplasm of uncertain behavior of skin Start:08-May-2016 Instruction Type:Patient Education Patient Instructions Indication:Neoplasm of uncertain behavior of skin Start:08-May-2016 Instruction Type:Provider Instructions for Treatment How to access health informa tion online Indication:BMI 38.0-38.9,adult Start:23-Apr-2016 Instruction Type:Patient Education How to access health informa tion online - Detail Indication:BMI 38.0-38.9,adult Start:23-Apr-2016 Instruction Type:Patient Education Patient Instructions Indication:BMI 38.0-38.9,adult Start:23-Apr-2016 Instruction Type:Provider Instructions for Treatment How to access health informa tion online Indication:Annual physical exam Start:17-Feb-2014 Instruction Type:Patient Education How to access health informa tion online - Detail Indication:Annual physical exam Start:17-Feb-2014 Instruction Type:Patient Education How to access health informa tion online Indication:Benign essential hypertension Start:02-Dec-2013 Instruction Type:Patient Education How to access health informa tion online - Detail Indication:Benign essential hypertension Start:02-Dec-2013 Instruction Type:Patient Education Patient Instructions Indication:Benign essential hypertension Start:02-Dec-2013 Instruction Type:Provider Instructions for Treatment Patient Instructions Indication:Benign essential hypertension Start:23-Sep-2012 Instruction Type:Provider Instructions for Treatment Patient Instructions Indication:Benign essential hypertension Start:13-Feb-2012 Instruction Type:Provider Instructions for Treatment [facility]; [facility] Work Phone: Instructions* Name Dates Details Patient Instructions Indication:Non-smoker Start:11-Apr-2022 Instruction Type:Provider Instructions for Treatment How to Access Health Informa tion Online using Patient Portal and [employer] Indication:Non-smoker Start:11-Apr-2022 Instruction Type:Patient Education How to Access Health Informa tion Online using Patient Portal and [employer] Indication:Non-smoker Start:28-Feb-2022 Instruction Type:Patient Education Patient Instructions Indication:Non-smoker Start:28-Feb-2022 Instruction Type:Provider Instructions for Treatment Patient Instructions Indication:Non-smoker Start:28-Sep-2021 Instruction Type:Provider Instructions for Treatment How to Access Health Informa tion Online using Patient Portal and [employer] Indication:Non-smoker Start:28-Sep-2021 Instruction Type:Patient Education Patient Instructions Indication:BMI 33.0-33.9,adult Start:08-Feb-2021 Instruction Type:Provider Instructions for Treatment How to Access Health Informa tion Online using Patient Portal and [employer] Indication:BMI 33.0-33.9,adult Start:08-Feb-2021 Instruction Type:Patient Education Patient Instructions Indication:Left hip pain Start:11-Sep-2020 Instruction Type:Provider Instructions for Treatment How to Access Health Informa tion Online using Patient Portal and [employer] Apps Indication:Left hip pain Start:11-Sep-2020 Instruction Type:Patient Education How to access health informa tion online Indication:Non-smoker Start:23-Feb-2020 Instruction Type:Patient Education How to access health informa tion online - Detail Indication:Non-smoker Start:23-Feb-2020 Instruction Type:Patient Education Patient Instructions Indication:Non-smoker Start:23-Feb-2020 Instruction Type:Provider Instructions for Treatment How to access health informa tion online Indication:Non-smoker Start:17-Sep-2019 Instruction Type:Patient Education How to access health informa tion online - Detail Indication:Non-smoker Start:17-Sep-2019 Instruction Type:Patient Education Patient Instructions Indication:Non-smoker Start:17-Sep-2019 Instruction Type:Provider Instructions for Treatment How to access health informa tion online Indication:BMI 35.0-35.9,adult Start:23-Jun-2019 Instruction Type:Patient Education How to access health informa tion online - Detail Indication:BMI 35.0-35.9,adult Start:23-Jun-2019 Instruction Type:Patient Education Patient Instructions Indication:BMI 35.0-35.9,adult Start:23-Jun-2019 Instruction Type:Provider Instructions for Treatment How to access health informa tion online Indication:Non-smoker Start:09-Mar-2019 Instruction Type:Patient Education How to access health informa tion online - Detail Indication:Non-smoker Start:09-Mar-2019 Instruction Type:Patient Education Patient Instructions Indication:Non-smoker Start:09-Mar-2019 Instruction Type:Provider Instructions for Treatment How to access health informa tion online Indication:Physical exam for work/school/camp (Renamed from Encounter for school health examination) Start:25-Feb-2019 Instruction Type:Patient Education How to access health informa tion online - Detail Indication:Physical exam for work/school/camp (Renamed from Encounter for school health examination) Start:25-Feb-2019 Instruction Type:Patient Education Patient Instructions Indication:Physical exam for work/school/camp (Renamed from Encounter for school health examination) Start:25-Feb-2019 Instruction Type:Provider Instructions for Treatment How to access health informa tion online Indication:Non-smoker Start:23-Feb-2019 Instruction Type:Patient Education How to access health informa tion online - Detail Indication:Non-smoker Start:23-Feb-2019 Instruction Type:Patient Education Patient Instructions Indication:Non-smoker Start:23-Feb-2019 Instruction Type:Provider Instructions for Treatment How to access health informa tion online Indication:Non-smoker Start:29-Jan-2019 Instruction Type:Patient Education How to access health informa tion online - Detail Indication:Non-smoker Start:29-Jan-2019 Instruction Type:Patient Education Patient Instructions Indication:Non-smoker Start:29-Jan-2019 Instruction Type:Provider Instructions for Treatment How to access health informa tion online Indication:Non-smoker Start:24-Sep-2018 Instruction Type:Patient Education How to access health informa tion online - Detail Indication:Non-smoker Start:24-Sep-2018 Instruction Type:Patient Education Patient Instructions Indication:Non-smoker Start:24-Sep-2018 Instruction Type:Provider Instructions for Treatment How to access health informa tion online Indication:BMI 35.0-35.9,adult Start:18-Jun-2018 Instruction Type:Patient Education How to access health informa tion online - Detail Indication:BMI 35.0-35.9,adult Start:18-Jun-2018 Instruction Type:Patient Education Patient Instructions Indication:BMI 35.0-35.9,adult Start:18-Jun-2018 Instruction Type:Provider Instructions for Treatment How to access health informa tion online Indication:Non-smoker Start:28-Apr-2018 Instruction Type:Patient Education How to access health informa tion online - Detail Indication:Non-smoker Start:28-Apr-2018 Instruction Type:Patient Education Patient Instructions Indication:Non-smoker Start:28-Apr-2018 Instruction Type:Provider Instructions for Treatment How to access health informa tion online Indication:Non-smoker Start:16-Apr-2018 Instruction Type:Patient Education How to access health informa tion online - Detail Indication:Non-smoker Start:16-Apr-2018 Instruction Type:Patient Education Patient Instructions Indication:Back pain, lumbosacral Start:16-Apr-2018 Instruction Type:Provider Instructions for Treatment How to access health informa tion online Indication:BMI 35.0-35.9,adult Start:26-Feb-2018 Instruction Type:Patient Education How to access health informa tion online - Detail Indication:BMI 35.0-35.9,adult Start:26-Feb-2018 Instruction Type:Patient Education Patient Instructions Indication:BMI 35.0-35.9,adult Start:26-Feb-2018 Instruction Type:Provider Instructions for Treatment How to access health informa tion online Indication:Nonsmoker Start:27-Feb-2017 Instruction Type:Patient Education How to access health informa tion online - Detail Indication:Nonsmoker Start:27-Feb-2017 Instruction Type:Patient Education Patient Instructions Indication:Nonsmoker Start:27-Feb-2017 Instruction Type:Provider Instructions for Treatment How to access health informa tion online Indication:Nonsmoker Start:06-Sep-2016 Instruction Type:Patient Education How to access health informa tion online - Detail Indication:Nonsmoker Start:06-Sep-2016 Instruction Type:Patient Education Patient Instructions Indication:Nonsmoker Start:06-Sep-2016 Instruction Type:Provider Instructions for Treatment How to access health informa tion online Indication:Neoplasm of uncertain behavior of skin Start:08-May-2016 Instruction Type:Patient Education How to access health informa tion online - Detail Indication:Neoplasm of uncertain behavior of skin Start:08-May-2016 Instruction Type:Patient Education Patient Instructions Indication:Neoplasm of uncertain behavior of skin Start:08-May-2016 Instruction Type:Provider Instructions for Treatment How to access health informa tion online Indication:BMI 38.0-38.9,adult Start:23-Apr-2016 Instruction Type:Patient Education How to access health informa tion online - Detail Indication:BMI 38.0-38.9,adult Start:23-Apr-2016 Instruction Type:Patient Education Patient Instructions Indication:BMI 38.0-38.9,adult Start:23-Apr-2016 Instruction Type:Provider Instructions for Treatment How to access health informa tion online Indication:Annual physical exam Start:17-Feb-2014 Instruction Type:Patient Education How to access health informa tion online - Detail Indication:Annual physical exam Start:17-Feb-2014 Instruction Type:Patient Education How to access health informa tion online Indication:Benign essential hypertension Start:02-Dec-2013 Instruction Type:Patient Education How to access health informa tion online - Detail Indication:Benign essential hypertension Start:02-Dec-2013 Instruction Type:Patient Education Patient Instructions Indication:Benign essential hypertension Start:02-Dec-2013 Instruction Type:Provider Instructions for Treatment Patient Instructions Indication:Benign essential hypertension Start:23-Sep-2012 Instruction Type:Provider Instructions for Treatment Patient Instructions Indication:Benign essential hypertension Start:13-Feb-2012 Instruction Type:Provider Instructions for Treatment [facility]; [facility] Work Phone: Instructions* Name Dates Details Patient Instructions Indication:Non-smoker Start:11-Apr-2022 Instruction Type:Provider Instructions for Treatment How to Access Health Informa tion Online using Patient Portal and [employer] Apps Indication:Non-smoker Start:11-Apr-2022 Instruction Type:Patient Education How to Access Health Informa tion Online using Patient Portal and [employer] Apps Indication:Non-smoker Start:28-Feb-2022 Instruction Type:Patient Education Patient Instructions Indication:Non-smoker Start:28-Feb-2022 Instruction Type:Provider Instructions for Treatment Patient Instructions Indication:Non-smoker Start:28-Sep-2021 Instruction Type:Provider Instructions for Treatment How to Access Health Informa tion Online using Patient Portal and [employer] Apps Indication:Non-smoker Start:28-Sep-2021 Instruction Type:Patient Education Patient Instructions Indication:BMI 33.0-33.9,adult Start:08-Feb-2021 Instruction Type:Provider Instructions for Treatment How to Access Health Informa tion Online using Patient Portal and [employer] Apps Indication:BMI 33.0-33.9,adult Start:08-Feb-2021 Instruction Type:Patient Education Patient Instructions Indication:Left hip pain Start:11-Sep-2020 Instruction Type:Provider Instructions for Treatment How to Access Health Informa tion Online using Patient Portal and [employer] Apps Indication:Left hip pain Start:11-Sep-2020 Instruction Type:Patient Education How to access health informa tion online Indication:Non-smoker Start:23-Feb-2020 Instruction Type:Patient Education How to access health informa tion online - Detail Indication:Non-smoker Start:23-Feb-2020 Instruction Type:Patient Education Patient Instructions Indication:Non-smoker Start:23-Feb-2020 Instruction Type:Provider Instructions for Treatment How to access health informa tion online Indication:Non-smoker Start:17-Sep-2019 Instruction Type:Patient Education How to access health informa tion online - Detail Indication:Non-smoker Start:17-Sep-2019 Instruction Type:Patient Education Patient Instructions Indication:Non-smoker Start:17-Sep-2019 Instruction Type:Provider Instructions for Treatment How to access health informa tion online Indication:BMI 35.0-35.9,adult Start:23-Jun-2019 Instruction Type:Patient Education How to access health informa tion online - Detail Indication:BMI 35.0-35.9,adult Start:23-Jun-2019 Instruction Type:Patient Education Patient Instructions Indication:BMI 35.0-35.9,adult Start:23-Jun-2019 Instruction Type:Provider Instructions for Treatment How to access health informa tion online Indication:Non-smoker Start:09-Mar-2019 Instruction Type:Patient Education How to access health informa tion online - Detail Indication:Non-smoker Start:09-Mar-2019 Instruction Type:Patient Education Patient Instructions Indication:Non-smoker Start:09-Mar-2019 Instruction Type:Provider Instructions for Treatment How to access health informa tion online Indication:Physical exam for work/school/camp (Renamed from Encounter for school health examination) Start:25-Feb-2019 Instruction Type:Patient Education How to access health informa tion online - Detail Indication:Physical exam for work/school/camp (Renamed from Encounter for school health examination) Start:25-Feb-2019 Instruction Type:Patient Education Patient Instructions Indication:Physical exam for work/school/camp (Renamed from Encounter for school health examination) Start:25-Feb-2019 Instruction Type:Provider Instructions for Treatment How to access health informa tion online Indication:Non-smoker Start:23-Feb-2019 Instruction Type:Patient Education How to access health informa tion online - Detail Indication:Non-smoker Start:23-Feb-2019 Instruction Type:Patient Education Patient Instructions Indication:Non-smoker Start:23-Feb-2019 Instruction Type:Provider Instructions for Treatment How to access health informa tion online Indication:Non-smoker Start:29-Jan-2019 Instruction Type:Patient Education How to access health informa tion online - Detail Indication:Non-smoker Start:29-Jan-2019 Instruction Type:Patient Education Patient Instructions Indication:Non-smoker Start:29-Jan-2019 Instruction Type:Provider Instructions for Treatment How to access health informa tion online Indication:Non-smoker Start:24-Sep-2018 Instruction Type:Patient Education How to access health informa tion online - Detail Indication:Non-smoker Start:24-Sep-2018 Instruction Type:Patient Education Patient Instructions Indication:Non-smoker Start:24-Sep-2018 Instruction Type:Provider Instructions for Treatment How to access health informa tion online Indication:BMI 35.0-35.9,adult Start:18-Jun-2018 Instruction Type:Patient Education How to access health informa tion online - Detail Indication:BMI 35.0-35.9,adult Start:18-Jun-2018 Instruction Type:Patient Education Patient Instructions Indication:BMI 35.0-35.9,adult Start:18-Jun-2018 Instruction Type:Provider Instructions for Treatment How to access health informa tion online Indication:Non-smoker Start:28-Apr-2018 Instruction Type:Patient Education How to access health informa tion online - Detail Indication:Non-smoker Start:28-Apr-2018 Instruction Type:Patient Education Patient Instructions Indication:Non-smoker Start:28-Apr-2018 Instruction Type:Provider Instructions for Treatment How to access health informa tion online Indication:Non-smoker Start:16-Apr-2018 Instruction Type:Patient Education How to access health informa tion online - Detail Indication:Non-smoker Start:16-Apr-2018 Instruction Type:Patient Education Patient Instructions Indication:Back pain, lumbosacral Start:16-Apr-2018 Instruction Type:Provider Instructions for Treatment How to access health informa tion online Indication:BMI 35.0-35.9,adult Start:26-Feb-2018 Instruction Type:Patient Education How to access health informa tion online - Detail Indication:BMI 35.0-35.9,adult Start:26-Feb-2018 Instruction Type:Patient Education Patient Instructions Indication:BMI 35.0-35.9,adult Start:26-Feb-2018 Instruction Type:Provider Instructions for Treatment How to access health informa tion online Indication:Nonsmoker Start:27-Feb-2017 Instruction Type:Patient Education How to access health informa tion online - Detail Indication:Nonsmoker Start:27-Feb-2017 Instruction Type:Patient Education Patient Instructions Indication:Nonsmoker Start:27-Feb-2017 Instruction Type:Provider Instructions for Treatment How to access health informa tion online Indication:Nonsmoker Start:06-Sep-2016 Instruction Type:Patient Education How to access health informa tion online - Detail Indication:Nonsmoker Start:06-Sep-2016 Instruction Type:Patient Education Patient Instructions Indication:Nonsmoker Start:06-Sep-2016 Instruction Type:Provider Instructions for Treatment How to access health informa tion online Indication:Neoplasm of uncertain behavior of skin Start:08-May-2016 Instruction Type:Patient Education How to access health informa tion online - Detail Indication:Neoplasm of uncertain behavior of skin Start:08-May-2016 Instruction Type:Patient Education Patient Instructions Indication:Neoplasm of uncertain behavior of skin Start:08-May-2016 Instruction Type:Provider Instructions for Treatment How to access health informa tion online Indication:BMI 38.0-38.9,adult Start:23-Apr-2016 Instruction Type:Patient Education How to access health informa tion online - Detail Indication:BMI 38.0-38.9,adult Start:23-Apr-2016 Instruction Type:Patient Education Patient Instructions Indication:BMI 38.0-38.9,adult Start:23-Apr-2016 Instruction Type:Provider Instructions for Treatment How to access health informa tion online Indication:Annual physical exam Start:17-Feb-2014 Instruction Type:Patient Education How to access health informa tion online - Detail Indication:Annual physical exam Start:17-Feb-2014 Instruction Type:Patient Education How to access health informa tion online Indication:Benign essential hypertension Start:02-Dec-2013 Instruction Type:Patient Education How to access health informa tion online - Detail Indication:Benign essential hypertension Start:02-Dec-2013 Instruction Type:Patient Education Patient Instructions Indication:Benign essential hypertension Start:02-Dec-2013 Instruction Type:Provider Instructions for Treatment Patient Instructions Indication:Benign essential hypertension Start:23-Sep-2012 Instruction Type:Provider Instructions for Treatment Patient Instructions Indication:Benign essential hypertension Start:13-Feb-2012 Instruction Type:Provider Instructions for Treatment [facility] Work Phone: Instructions* Name Dates Details Patient Instructions Indication:Non-smoker Start:11-Apr-2022 Instruction Type:Provider Instructions for Treatment How to Access Health Informa tion Online using Patient Portal and [employer] Apps Indication:Non-smoker Start:11-Apr-2022 Instruction Type:Patient Education How to Access Health Informa tion Online using Patient Portal and [employer] Apps Indication:Non-smoker Start:28-Feb-2022 Instruction Type:Patient Education Patient Instructions Indication:Non-smoker Start:28-Feb-2022 Instruction Type:Provider Instructions for Treatment Patient Instructions Indication:Non-smoker Start:28-Sep-2021 Instruction Type:Provider Instructions for Treatment How to Access Health Informa tion Online using Patient Portal and [employer] Apps Indication:Non-smoker Start:28-Sep-2021 Instruction Type:Patient Education Patient Instructions Indication:BMI 33.0-33.9,adult Start:08-Feb-2021 Instruction Type:Provider Instructions for Treatment How to Access Health Informa tion Online using Patient Portal and [employer] Apps Indication:BMI 33.0-33.9,adult Start:08-Feb-2021 Instruction Type:Patient Education Patient Instructions Indication:Left hip pain Start:11-Sep-2020 Instruction Type:Provider Instructions for Treatment How to Access Health Informa tion Online using Patient Portal and [employer] Apps Indication:Left hip pain Start:11-Sep-2020 Instruction Type:Patient Education How to access health informa tion online Indication:Non-smoker Start:23-Feb-2020 Instruction Type:Patient Education How to access health informa tion online - Detail Indication:Non-smoker Start:23-Feb-2020 Instruction Type:Patient Education Patient Instructions Indication:Non-smoker Start:23-Feb-2020 Instruction Type:Provider Instructions for Treatment How to access health informa tion online Indication:Non-smoker Start:17-Sep-2019 Instruction Type:Patient Education How to access health informa tion online - Detail Indication:Non-smoker Start:17-Sep-2019 Instruction Type:Patient Education Patient Instructions Indication:Non-smoker Start:17-Sep-2019 Instruction Type:Provider Instructions for Treatment How to access health informa tion online Indication:BMI 35.0-35.9,adult Start:23-Jun-2019 Instruction Type:Patient Education How to access health informa tion online - Detail Indication:BMI 35.0-35.9,adult Start:23-Jun-2019 Instruction Type:Patient Education Patient Instructions Indication:BMI 35.0-35.9,adult Start:23-Jun-2019 Instruction Type:Provider Instructions for Treatment How to access health informa tion online Indication:Non-smoker Start:09-Mar-2019 Instruction Type:Patient Education How to access health informa tion online - Detail Indication:Non-smoker Start:09-Mar-2019 Instruction Type:Patient Education Patient Instructions Indication:Non-smoker Start:09-Mar-2019 Instruction Type:Provider Instructions for Treatment How to access health informa tion online Indication:Physical exam for work/school/camp (Renamed from Encounter for school health examination) Start:25-Feb-2019 Instruction Type:Patient Education How to access health informa tion online - Detail Indication:Physical exam for work/school/camp (Renamed from Encounter for school health examination) Start:25-Feb-2019 Instruction Type:Patient Education Patient Instructions Indication:Physical exam for work/school/camp (Renamed from Encounter for school health examination) Start:25-Feb-2019 Instruction Type:Provider Instructions for Treatment How to access health informa tion online Indication:Non-smoker Start:23-Feb-2019 Instruction Type:Patient Education How to access health informa tion online - Detail Indication:Non-smoker Start:23-Feb-2019 Instruction Type:Patient Education Patient Instructions Indication:Non-smoker Start:23-Feb-2019 Instruction Type:Provider Instructions for Treatment How to access health informa tion online Indication:Non-smoker Start:29-Jan-2019 Instruction Type:Patient Education How to access health informa tion online - Detail Indication:Non-smoker Start:29-Jan-2019 Instruction Type:Patient Education Patient Instructions Indication:Non-smoker Start:29-Jan-2019 Instruction Type:Provider Instructions for Treatment How to access health informa tion online Indication:Non-smoker Start:24-Sep-2018 Instruction Type:Patient Education How to access health informa tion online - Detail Indication:Non-smoker Start:24-Sep-2018 Instruction Type:Patient Education Patient Instructions Indication:Non-smoker Start:24-Sep-2018 Instruction Type:Provider Instructions for Treatment How to access health informa tion online Indication:BMI 35.0-35.9,adult Start:18-Jun-2018 Instruction Type:Patient Education How to access health informa tion online - Detail Indication:BMI 35.0-35.9,adult Start:18-Jun-2018 Instruction Type:Patient Education Patient Instructions Indication:BMI 35.0-35.9,adult Start:18-Jun-2018 Instruction Type:Provider Instructions for Treatment How to access health informa tion online Indication:Non-smoker Start:28-Apr-2018 Instruction Type:Patient Education How to access health informa tion online - Detail Indication:Non-smoker Start:28-Apr-2018 Instruction Type:Patient Education Patient Instructions Indication:Non-smoker Start:28-Apr-2018 Instruction Type:Provider Instructions for Treatment How to access health informa tion online Indication:Non-smoker Start:16-Apr-2018 Instruction Type:Patient Education How to access health informa tion online - Detail Indication:Non-smoker Start:16-Apr-2018 Instruction Type:Patient Education Patient Instructions Indication:Back pain, lumbosacral Start:16-Apr-2018 Instruction Type:Provider Instructions for Treatment How to access health informa tion online Indication:BMI 35.0-35.9,adult Start:26-Feb-2018 Instruction Type:Patient Education How to access health informa tion online - Detail Indication:BMI 35.0-35.9,adult Start:26-Feb-2018 Instruction Type:Patient Education Patient Instructions Indication:BMI 35.0-35.9,adult Start:26-Feb-2018 Instruction Type:Provider Instructions for Treatment How to access health informa tion online Indication:Nonsmoker Start:27-Feb-2017 Instruction Type:Patient Education How to access health informa tion online - Detail Indication:Nonsmoker Start:27-Feb-2017 Instruction Type:Patient Education Patient Instructions Indication:Nonsmoker Start:27-Feb-2017 Instruction Type:Provider Instructions for Treatment How to access health informa tion online Indication:Nonsmoker Start:06-Sep-2016 Instruction Type:Patient Education How to access health informa tion online - Detail Indication:Nonsmoker Start:06-Sep-2016 Instruction Type:Patient Education Patient Instructions Indication:Nonsmoker Start:06-Sep-2016 Instruction Type:Provider Instructions for Treatment How to access health informa tion online Indication:Neoplasm of uncertain behavior of skin Start:08-May-2016 Instruction Type:Patient Education How to access health informa tion online - Detail Indication:Neoplasm of uncertain behavior of skin Start:08-May-2016 Instruction Type:Patient Education Patient Instructions Indication:Neoplasm of uncertain behavior of skin Start:08-May-2016 Instruction Type:Provider Instructions for Treatment How to access health informa tion online Indication:BMI 38.0-38.9,adult Start:23-Apr-2016 Instruction Type:Patient Education How to access health informa tion online - Detail Indication:BMI 38.0-38.9,adult Start:23-Apr-2016 Instruction Type:Patient Education Patient Instructions Indication:BMI 38.0-38.9,adult Start:23-Apr-2016 Instruction Type:Provider Instructions for Treatment How to access health informa tion online Indication:Annual physical exam Start:17-Feb-2014 Instruction Type:Patient Education How to access health informa tion online - Detail Indication:Annual physical exam Start:17-Feb-2014 Instruction Type:Patient Education How to access health informa tion online Indication:Benign essential hypertension Start:02-Dec-2013 Instruction Type:Patient Education How to access health informa tion online - Detail Indication:Benign essential hypertension Start:02-Dec-2013 Instruction Type:Patient Education Patient Instructions Indication:Benign essential hypertension Start:02-Dec-2013 Instruction Type:Provider Instructions for Treatment Patient Instructions Indication:Benign essential hypertension Start:23-Sep-2012 Instruction Type:Provider Instructions for Treatment Patient Instructions Indication:Benign essential hypertension Start:13-Feb-2012 Instruction Type:Provider Instructions for Treatment [facility] Work Phone: Instructions* Name Dates Details Patient Instructions Indication:Non-smoker Start:12-Jul-2022 Instruction Type:Provider Instructions for Treatment How to Access Health Informa tion Online using Patient Portal and [employer] Apps Indication:Non-smoker Start:12-Jul-2022 Instruction Type:Patient Education Patient Instructions Indication:Non-smoker Start:11-Apr-2022 Instruction Type:Provider Instructions for Treatment How to Access Health Informa tion Online using Patient Portal and [employer] Apps Indication:Non-smoker Start:11-Apr-2022 Instruction Type:Patient Education How to Access Health Informa tion Online using Patient Portal and [employer] Apps Indication:Non-smoker Start:28-Feb-2022 Instruction Type:Patient Education Patient Instructions Indication:Non-smoker Start:28-Feb-2022 Instruction Type:Provider Instructions for Treatment Patient Instructions Indication:Non-smoker Start:28-Sep-2021 Instruction Type:Provider Instructions for Treatment How to Access Health Informa tion Online using Patient Portal and [employer] Apps Indication:Non-smoker Start:28-Sep-2021 Instruction Type:Patient Education Patient Instructions Indication:BMI 33.0-33.9,adult Start:08-Feb-2021 Instruction Type:Provider Instructions for Treatment How to Access Health Informa tion Online using Patient Portal and [employer] Apps Indication:BMI 33.0-33.9,adult Start:08-Feb-2021 Instruction Type:Patient Education Patient Instructions Indication:Left hip pain Start:11-Sep-2020 Instruction Type:Provider Instructions for Treatment How to Access Health Informa tion Online using Patient Portal and [employer] Apps Indication:Left hip pain Start:11-Sep-2020 Instruction Type:Patient Education How to access health informa tion online Indication:Non-smoker Start:23-Feb-2020 Instruction Type:Patient Education How to access health informa tion online - Detail Indication:Non-smoker Start:23-Feb-2020 Instruction Type:Patient Education Patient Instructions Indication:Non-smoker Start:23-Feb-2020 Instruction Type:Provider Instructions for Treatment How to access health informa tion online Indication:Non-smoker Start:17-Sep-2019 Instruction Type:Patient Education How to access health informa tion online - Detail Indication:Non-smoker Start:17-Sep-2019 Instruction Type:Patient Education Patient Instructions Indication:Non-smoker Start:17-Sep-2019 Instruction Type:Provider Instructions for Treatment How to access health informa tion online Indication:BMI 35.0-35.9,adult Start:23-Jun-2019 Instruction Type:Patient Education How to access health informa tion online - Detail Indication:BMI 35.0-35.9,adult Start:23-Jun-2019 Instruction Type:Patient Education Patient Instructions Indication:BMI 35.0-35.9,adult Start:23-Jun-2019 Instruction Type:Provider Instructions for Treatment How to access health informa tion online Indication:Non-smoker Start:09-Mar-2019 Instruction Type:Patient Education How to access health informa tion online - Detail Indication:Non-smoker Start:09-Mar-2019 Instruction Type:Patient Education Patient Instructions Indication:Non-smoker Start:09-Mar-2019 Instruction Type:Provider Instructions for Treatment How to access health informa tion online Indication:Physical exam for work/school/camp (Renamed from Encounter for school health examination) Start:25-Feb-2019 Instruction Type:Patient Education How to access health informa tion online - Detail Indication:Physical exam for work/school/camp (Renamed from Encounter for school health examination) Start:25-Feb-2019 Instruction Type:Patient Education Patient Instructions Indication:Physical exam for work/school/camp (Renamed from Encounter for school health examination) Start:25-Feb-2019 Instruction Type:Provider Instructions for Treatment How to access health informa tion online Indication:Non-smoker Start:23-Feb-2019 Instruction Type:Patient Education How to access health informa tion online - Detail Indication:Non-smoker Start:23-Feb-2019 Instruction Type:Patient Education Patient Instructions Indication:Non-smoker Start:23-Feb-2019 Instruction Type:Provider Instructions for Treatment How to access health informa tion online Indication:Non-smoker Start:29-Jan-2019 Instruction Type:Patient Education How to access health informa tion online - Detail Indication:Non-smoker Start:29-Jan-2019 Instruction Type:Patient Education Patient Instructions Indication:Non-smoker Start:29-Jan-2019 Instruction Type:Provider Instructions for Treatment How to access health informa tion online Indication:Non-smoker Start:24-Sep-2018 Instruction Type:Patient Education How to access health informa tion online - Detail Indication:Non-smoker Start:24-Sep-2018 Instruction Type:Patient Education Patient Instructions Indication:Non-smoker Start:24-Sep-2018 Instruction Type:Provider Instructions for Treatment How to access health informa tion online Indication:BMI 35.0-35.9,adult Start:18-Jun-2018 Instruction Type:Patient Education How to access health informa tion online - Detail Indication:BMI 35.0-35.9,adult Start:18-Jun-2018 Instruction Type:Patient Education Patient Instructions Indication:BMI 35.0-35.9,adult Start:18-Jun-2018 Instruction Type:Provider Instructions for Treatment How to access health informa tion online Indication:Non-smoker Start:28-Apr-2018 Instruction Type:Patient Education How to access health informa tion online - Detail Indication:Non-smoker Start:28-Apr-2018 Instruction Type:Patient Education Patient Instructions Indication:Non-smoker Start:28-Apr-2018 Instruction Type:Provider Instructions for Treatment How to access health informa tion online Indication:Non-smoker Start:16-Apr-2018 Instruction Type:Patient Education How to access health informa tion online - Detail Indication:Non-smoker Start:16-Apr-2018 Instruction Type:Patient Education Patient Instructions Indication:Back pain, lumbosacral Start:16-Apr-2018 Instruction Type:Provider Instructions for Treatment How to access health informa tion online Indication:BMI 35.0-35.9,adult Start:26-Feb-2018 Instruction Type:Patient Education How to access health informa tion online - Detail Indication:BMI 35.0-35.9,adult Start:26-Feb-2018 Instruction Type:Patient Education Patient Instructions Indication:BMI 35.0-35.9,adult Start:26-Feb-2018 Instruction Type:Provider Instructions for Treatment How to access health informa tion online Indication:Nonsmoker Start:27-Feb-2017 Instruction Type:Patient Education How to access health informa tion online - Detail Indication:Nonsmoker Start:27-Feb-2017 Instruction Type:Patient Education Patient Instructions Indication:Nonsmoker Start:27-Feb-2017 Instruction Type:Provider Instructions for Treatment How to access health informa tion online Indication:Nonsmoker Start:06-Sep-2016 Instruction Type:Patient Education How to access health informa tion online - Detail Indication:Nonsmoker Start:06-Sep-2016 Instruction Type:Patient Education Patient Instructions Indication:Nonsmoker Start:06-Sep-2016 Instruction Type:Provider Instructions for Treatment How to access health informa tion online Indication:Neoplasm of uncertain behavior of skin Start:08-May-2016 Instruction Type:Patient Education How to access health informa tion online - Detail Indication:Neoplasm of uncertain behavior of skin Start:08-May-2016 Instruction Type:Patient Education Patient Instructions Indication:Neoplasm of uncertain behavior of skin Start:08-May-2016 Instruction Type:Provider Instructions for Treatment How to access health informa tion online Indication:BMI 38.0-38.9,adult Start:23-Apr-2016 Instruction Type:Patient Education How to access health informa tion online - Detail Indication:BMI 38.0-38.9,adult Start:23-Apr-2016 Instruction Type:Patient Education Patient Instructions Indication:BMI 38.0-38.9,adult Start:23-Apr-2016 Instruction Type:Provider Instructions for Treatment How to access health informa tion online Indication:Annual physical exam Start:17-Feb-2014 Instruction Type:Patient Education How to access health informa tion online - Detail Indication:Annual physical exam Start:17-Feb-2014 Instruction Type:Patient Education How to access health informa tion online Indication:Benign essential hypertension Start:02-Dec-2013 Instruction Type:Patient Education How to access health informa tion online - Detail Indication:Benign essential hypertension Start:02-Dec-2013 Instruction Type:Patient Education Patient Instructions Indication:Benign essential hypertension Start:02-Dec-2013 Instruction Type:Provider Instructions for Treatment Patient Instructions Indication:Benign essential hypertension Start:23-Sep-2012 Instruction Type:Provider Instructions for Treatment Patient Instructions Indication:Benign essential hypertension Start:13-Feb-2012 Instruction Type:Provider Instructions for Treatment [facility]; [facility] Work Phone: Instructions* Name Dates Details Patient Instructions Indication:Non-smoker Start:12-Jul-2022 Instruction Type:Provider Instructions for Treatment How to Access Health Informa tion Online using Patient Portal and [employer] Apps Indication:Non-smoker Start:12-Jul-2022 Instruction Type:Patient Education Patient Instructions Indication:Non-smoker Start:11-Apr-2022 Instruction Type:Provider Instructions for Treatment How to Access Health Informa tion Online using Patient Portal and [employer] Apps Indication:Non-smoker Start:11-Apr-2022 Instruction Type:Patient Education How to Access Health Informa tion Online using Patient Portal and [employer] Apps Indication:Non-smoker Start:28-Feb-2022 Instruction Type:Patient Education Patient Instructions Indication:Non-smoker Start:28-Feb-2022 Instruction Type:Provider Instructions for Treatment Patient Instructions Indication:Non-smoker Start:28-Sep-2021 Instruction Type:Provider Instructions for Treatment How to Access Health Informa tion Online using Patient Portal and [employer] Apps Indication:Non-smoker Start:28-Sep-2021 Instruction Type:Patient Education Patient Instructions Indication:BMI 33.0-33.9,adult Start:08-Feb-2021 Instruction Type:Provider Instructions for Treatment How to Access Health Informa tion Online using Patient Portal and [employer] Apps Indication:BMI 33.0-33.9,adult Start:08-Feb-2021 Instruction Type:Patient Education Patient Instructions Indication:Left hip pain Start:11-Sep-2020 Instruction Type:Provider Instructions for Treatment How to Access Health Informa tion Online using Patient Portal and [employer] Apps Indication:Left hip pain Start:11-Sep-2020 Instruction Type:Patient Education How to access health informa tion online Indication:Non-smoker Start:23-Feb-2020 Instruction Type:Patient Education How to access health informa tion online - Detail Indication:Non-smoker Start:23-Feb-2020 Instruction Type:Patient Education Patient Instructions Indication:Non-smoker Start:23-Feb-2020 Instruction Type:Provider Instructions for Treatment How to access health informa tion online Indication:Non-smoker Start:17-Sep-2019 Instruction Type:Patient Education How to access health informa tion online - Detail Indication:Non-smoker Start:17-Sep-2019 Instruction Type:Patient Education Patient Instructions Indication:Non-smoker Start:17-Sep-2019 Instruction Type:Provider Instructions for Treatment How to access health informa tion online Indication:BMI 35.0-35.9,adult Start:23-Jun-2019 Instruction Type:Patient Education How to access health informa tion online - Detail Indication:BMI 35.0-35.9,adult Start:23-Jun-2019 Instruction Type:Patient Education Patient Instructions Indication:BMI 35.0-35.9,adult Start:23-Jun-2019 Instruction Type:Provider Instructions for Treatment How to access health informa tion online Indication:Non-smoker Start:09-Mar-2019 Instruction Type:Patient Education How to access health informa tion online - Detail Indication:Non-smoker Start:09-Mar-2019 Instruction Type:Patient Education Patient Instructions Indication:Non-smoker Start:09-Mar-2019 Instruction Type:Provider Instructions for Treatment How to access health informa tion online Indication:Physical exam for work/school/camp (Renamed from Encounter for school health examination) Start:25-Feb-2019 Instruction Type:Patient Education How to access health informa tion online - Detail Indication:Physical exam for work/school/camp (Renamed from Encounter for school health examination) Start:25-Feb-2019 Instruction Type:Patient Education Patient Instructions Indication:Physical exam for work/school/camp (Renamed from Encounter for school health examination) Start:25-Feb-2019 Instruction Type:Provider Instructions for Treatment How to access health informa tion online Indication:Non-smoker Start:23-Feb-2019 Instruction Type:Patient Education How to access health informa tion online - Detail Indication:Non-smoker Start:23-Feb-2019 Instruction Type:Patient Education Patient Instructions Indication:Non-smoker Start:23-Feb-2019 Instruction Type:Provider Instructions for Treatment How to access health informa tion online Indication:Non-smoker Start:29-Jan-2019 Instruction Type:Patient Education How to access health informa tion online - Detail Indication:Non-smoker Start:29-Jan-2019 Instruction Type:Patient Education Patient Instructions Indication:Non-smoker Start:29-Jan-2019 Instruction Type:Provider Instructions for Treatment How to access health informa tion online Indication:Non-smoker Start:24-Sep-2018 Instruction Type:Patient Education How to access health informa tion online - Detail Indication:Non-smoker Start:24-Sep-2018 Instruction Type:Patient Education Patient Instructions Indication:Non-smoker Start:24-Sep-2018 Instruction Type:Provider Instructions for Treatment How to access health informa tion online Indication:BMI 35.0-35.9,adult Start:18-Jun-2018 Instruction Type:Patient Education How to access health informa tion online - Detail Indication:BMI 35.0-35.9,adult Start:18-Jun-2018 Instruction Type:Patient Education Patient Instructions Indication:BMI 35.0-35.9,adult Start:18-Jun-2018 Instruction Type:Provider Instructions for Treatment How to access health informa tion online Indication:Non-smoker Start:28-Apr-2018 Instruction Type:Patient Education How to access health informa tion online - Detail Indication:Non-smoker Start:28-Apr-2018 Instruction Type:Patient Education Patient Instructions Indication:Non-smoker Start:28-Apr-2018 Instruction Type:Provider Instructions for Treatment How to access health informa tion online Indication:Non-smoker Start:16-Apr-2018 Instruction Type:Patient Education How to access health informa tion online - Detail Indication:Non-smoker Start:16-Apr-2018 Instruction Type:Patient Education Patient Instructions Indication:Back pain, lumbosacral Start:16-Apr-2018 Instruction Type:Provider Instructions for Treatment How to access health informa tion online Indication:BMI 35.0-35.9,adult Start:26-Feb-2018 Instruction Type:Patient Education How to access health informa tion online - Detail Indication:BMI 35.0-35.9,adult Start:26-Feb-2018 Instruction Type:Patient Education Patient Instructions Indication:BMI 35.0-35.9,adult Start:26-Feb-2018 Instruction Type:Provider Instructions for Treatment How to access health informa tion online Indication:Nonsmoker Start:27-Feb-2017 Instruction Type:Patient Education How to access health informa tion online - Detail Indication:Nonsmoker Start:27-Feb-2017 Instruction Type:Patient Education Patient Instructions Indication:Nonsmoker Start:27-Feb-2017 Instruction Type:Provider Instructions for Treatment How to access health informa tion online Indication:Nonsmoker Start:06-Sep-2016 Instruction Type:Patient Education How to access health informa tion online - Detail Indication:Nonsmoker Start:06-Sep-2016 Instruction Type:Patient Education Patient Instructions Indication:Nonsmoker Start:06-Sep-2016 Instruction Type:Provider Instructions for Treatment How to access health informa tion online Indication:Neoplasm of uncertain behavior of skin Start:08-May-2016 Instruction Type:Patient Education How to access health informa tion online - Detail Indication:Neoplasm of uncertain behavior of skin Start:08-May-2016 Instruction Type:Patient Education Patient Instructions Indication:Neoplasm of uncertain behavior of skin Start:08-May-2016 Instruction Type:Provider Instructions for Treatment How to access health informa tion online Indication:BMI 38.0-38.9,adult Start:23-Apr-2016 Instruction Type:Patient Education How to access health informa tion online - Detail Indication:BMI 38.0-38.9,adult Start:23-Apr-2016 Instruction Type:Patient Education Patient Instructions Indication:BMI 38.0-38.9,adult Start:23-Apr-2016 Instruction Type:Provider Instructions for Treatment How to access health informa tion online Indication:Annual physical exam Start:17-Feb-2014 Instruction Type:Patient Education How to access health informa tion online - Detail Indication:Annual physical exam Start:17-Feb-2014 Instruction Type:Patient Education How to access health informa tion online Indication:Benign essential hypertension Start:02-Dec-2013 Instruction Type:Patient Education How to access health informa tion online - Detail Indication:Benign essential hypertension Start:02-Dec-2013 Instruction Type:Patient Education Patient Instructions Indication:Benign essential hypertension Start:02-Dec-2013 Instruction Type:Provider Instructions for Treatment Patient Instructions Indication:Benign essential hypertension Start:23-Sep-2012 Instruction Type:Provider Instructions for Treatment Patient Instructions Indication:Benign essential hypertension Start:13-Feb-2012 Instruction Type:Provider Instructions for Treatment [facility]; [facility] Work Phone: Instructions* Name Dates Details Patient Instructions Indication:BMI 34.0-34.9,adult Start:21-Aug-2022 Instruction Type:Provider Instructions for Treatment How to Access Health Informa tion Online using Patient Portal and [employer] Apps Indication:BMI 34.0-34.9,adult Start:21-Aug-2022 Instruction Type:Patient Education Patient Instructions Indication:Non-smoker Start:12-Jul-2022 Instruction Type:Provider Instructions for Treatment How to Access Health Informa tion Online using Patient Portal and [employer] Apps Indication:Non-smoker Start:12-Jul-2022 Instruction Type:Patient Education Patient Instructions Indication:Non-smoker Start:11-Apr-2022 Instruction Type:Provider Instructions for Treatment How to Access Health Informa tion Online using Patient Portal and [employer] Apps Indication:Non-smoker Start:11-Apr-2022 Instruction Type:Patient Education How to Access Health Informa tion Online using Patient Portal and [employer] Apps Indication:Non-smoker Start:28-Feb-2022 Instruction Type:Patient Education Patient Instructions Indication:Non-smoker Start:28-Feb-2022 Instruction Type:Provider Instructions for Treatment Patient Instructions Indication:Non-smoker Start:28-Sep-2021 Instruction Type:Provider Instructions for Treatment How to Access Health Informa tion Online using Patient Portal and [employer] Apps Indication:Non-smoker Start:28-Sep-2021 Instruction Type:Patient Education Patient Instructions Indication:BMI 33.0-33.9,adult Start:08-Feb-2021 Instruction Type:Provider Instructions for Treatment How to Access Health Informa tion Online using Patient Portal and [employer] Apps Indication:BMI 33.0-33.9,adult Start:08-Feb-2021 Instruction Type:Patient Education Patient Instructions Indication:Left hip pain Start:11-Sep-2020 Instruction Type:Provider Instructions for Treatment How to Access Health Informa tion Online using Patient Portal and [employer] Apps Indication:Left hip pain Start:11-Sep-2020 Instruction Type:Patient Education How to access health informa tion online Indication:Non-smoker Start:23-Feb-2020 Instruction Type:Patient Education How to access health informa tion online - Detail Indication:Non-smoker Start:23-Feb-2020 Instruction Type:Patient Education Patient Instructions Indication:Non-smoker Start:23-Feb-2020 Instruction Type:Provider Instructions for Treatment How to access health informa tion online Indication:Non-smoker Start:17-Sep-2019 Instruction Type:Patient Education How to access health informa tion online - Detail Indication:Non-smoker Start:17-Sep-2019 Instruction Type:Patient Education Patient Instructions Indication:Non-smoker Start:17-Sep-2019 Instruction Type:Provider Instructions for Treatment How to access health informa tion online Indication:BMI 35.0-35.9,adult Start:23-Jun-2019 Instruction Type:Patient Education How to access health informa tion online - Detail Indication:BMI 35.0-35.9,adult Start:23-Jun-2019 Instruction Type:Patient Education Patient Instructions Indication:BMI 35.0-35.9,adult Start:23-Jun-2019 Instruction Type:Provider Instructions for Treatment How to access health informa tion online Indication:Non-smoker Start:09-Mar-2019 Instruction Type:Patient Education How to access health informa tion online - Detail Indication:Non-smoker Start:09-Mar-2019 Instruction Type:Patient Education Patient Instructions Indication:Non-smoker Start:09-Mar-2019 Instruction Type:Provider Instructions for Treatment How to access health informa tion online Indication:Physical exam for work/school/camp (Renamed from Encounter for school health examination) Start:25-Feb-2019 Instruction Type:Patient Education How to access health informa tion online - Detail Indication:Physical exam for work/school/camp (Renamed from Encounter for school health examination) Start:25-Feb-2019 Instruction Type:Patient Education Patient Instructions Indication:Physical exam for work/school/camp (Renamed from Encounter for school health examination) Start:25-Feb-2019 Instruction Type:Provider Instructions for Treatment How to access health informa tion online Indication:Non-smoker Start:23-Feb-2019 Instruction Type:Patient Education How to access health informa tion online - Detail Indication:Non-smoker Start:23-Feb-2019 Instruction Type:Patient Education Patient Instructions Indication:Non-smoker Start:23-Feb-2019 Instruction Type:Provider Instructions for Treatment How to access health informa tion online Indication:Non-smoker Start:29-Jan-2019 Instruction Type:Patient Education How to access health informa tion online - Detail Indication:Non-smoker Start:29-Jan-2019 Instruction Type:Patient Education Patient Instructions Indication:Non-smoker Start:29-Jan-2019 Instruction Type:Provider Instructions for Treatment How to access health informa tion online Indication:Non-smoker Start:24-Sep-2018 Instruction Type:Patient Education How to access health informa tion online - Detail Indication:Non-smoker Start:24-Sep-2018 Instruction Type:Patient Education Patient Instructions Indication:Non-smoker Start:24-Sep-2018 Instruction Type:Provider Instructions for Treatment How to access health informa tion online Indication:BMI 35.0-35.9,adult Start:18-Jun-2018 Instruction Type:Patient Education How to access health informa tion online - Detail Indication:BMI 35.0-35.9,adult Start:18-Jun-2018 Instruction Type:Patient Education Patient Instructions Indication:BMI 35.0-35.9,adult Start:18-Jun-2018 Instruction Type:Provider Instructions for Treatment How to access health informa tion online Indication:Non-smoker Start:28-Apr-2018 Instruction Type:Patient Education How to access health informa tion online - Detail Indication:Non-smoker Start:28-Apr-2018 Instruction Type:Patient Education Patient Instructions Indication:Non-smoker Start:28-Apr-2018 Instruction Type:Provider Instructions for Treatment How to access health informa tion online Indication:Non-smoker Start:16-Apr-2018 Instruction Type:Patient Education How to access health informa tion online - Detail Indication:Non-smoker Start:16-Apr-2018 Instruction Type:Patient Education Patient Instructions Indication:Back pain, lumbosacral Start:16-Apr-2018 Instruction Type:Provider Instructions for Treatment How to access health informa tion online Indication:BMI 35.0-35.9,adult Start:26-Feb-2018 Instruction Type:Patient Education How to access health informa tion online - Detail Indication:BMI 35.0-35.9,adult Start:26-Feb-2018 Instruction Type:Patient Education Patient Instructions Indication:BMI 35.0-35.9,adult Start:26-Feb-2018 Instruction Type:Provider Instructions for Treatment How to access health informa tion online Indication:Nonsmoker Start:27-Feb-2017 Instruction Type:Patient Education How to access health informa tion online - Detail Indication:Nonsmoker Start:27-Feb-2017 Instruction Type:Patient Education Patient Instructions Indication:Nonsmoker Start:27-Feb-2017 Instruction Type:Provider Instructions for Treatment How to access health informa tion online Indication:Nonsmoker Start:06-Sep-2016 Instruction Type:Patient Education How to access health informa tion online - Detail Indication:Nonsmoker Start:06-Sep-2016 Instruction Type:Patient Education Patient Instructions Indication:Nonsmoker Start:06-Sep-2016 Instruction Type:Provider Instructions for Treatment How to access health informa tion online Indication:Neoplasm of uncertain behavior of skin Start:08-May-2016 Instruction Type:Patient Education How to access health informa tion online - Detail Indication:Neoplasm of uncertain behavior of skin Start:08-May-2016 Instruction Type:Patient Education Patient Instructions Indication:Neoplasm of uncertain behavior of skin Start:08-May-2016 Instruction Type:Provider Instructions for Treatment How to access health informa tion online Indication:BMI 38.0-38.9,adult Start:23-Apr-2016 Instruction Type:Patient Education How to access health informa tion online - Detail Indication:BMI 38.0-38.9,adult Start:23-Apr-2016 Instruction Type:Patient Education Patient Instructions Indication:BMI 38.0-38.9,adult Start:23-Apr-2016 Instruction Type:Provider Instructions for Treatment How to access health informa tion online Indication:Annual physical exam Start:17-Feb-2014 Instruction Type:Patient Education How to access health informa tion online - Detail Indication:Annual physical exam Start:17-Feb-2014 Instruction Type:Patient Education How to access health informa tion online Indication:Benign essential hypertension Start:02-Dec-2013 Instruction Type:Patient Education How to access health informa tion online - Detail Indication:Benign essential hypertension Start:02-Dec-2013 Instruction Type:Patient Education Patient Instructions Indication:Benign essential hypertension Start:02-Dec-2013 Instruction Type:Provider Instructions for Treatment Patient Instructions Indication:Benign essential hypertension Start:23-Sep-2012 Instruction Type:Provider Instructions for Treatment Patient Instructions Indication:Benign essential hypertension Start:13-Feb-2012 Instruction Type:Provider Instructions for Treatment [facility] Work Phone: Instructions* Name Dates Details Patient Instructions Indication:BMI 34.0-34.9,adult Start:21-Aug-2022 Instruction Type:Provider Instructions for Treatment How to Access Health Informa tion Online using Patient Portal and [employer] Apps Indication:BMI 34.0-34.9,adult Start:21-Aug-2022 Instruction Type:Patient Education Patient Instructions Indication:Non-smoker Start:12-Jul-2022 Instruction Type:Provider Instructions for Treatment How to Access Health Informa tion Online using Patient Portal and [employer] Apps Indication:Non-smoker Start:12-Jul-2022 Instruction Type:Patient Education Patient Instructions Indication:Non-smoker Start:11-Apr-2022 Instruction Type:Provider Instructions for Treatment How to Access Health Informa tion Online using Patient Portal and [employer] Apps Indication:Non-smoker Start:11-Apr-2022 Instruction Type:Patient Education How to Access Health Informa tion Online using Patient Portal and [employer] Apps Indication:Non-smoker Start:28-Feb-2022 Instruction Type:Patient Education Patient Instructions Indication:Non-smoker Start:28-Feb-2022 Instruction Type:Provider Instructions for Treatment Patient Instructions Indication:Non-smoker Start:28-Sep-2021 Instruction Type:Provider Instructions for Treatment How to Access Health Informa tion Online using Patient Portal and [employer] Apps Indication:Non-smoker Start:28-Sep-2021 Instruction Type:Patient Education Patient Instructions Indication:BMI 33.0-33.9,adult Start:08-Feb-2021 Instruction Type:Provider Instructions for Treatment How to Access Health Informa tion Online using Patient Portal and [employer] Apps Indication:BMI 33.0-33.9,adult Start:08-Feb-2021 Instruction Type:Patient Education Patient Instructions Indication:Left hip pain Start:11-Sep-2020 Instruction Type:Provider Instructions for Treatment How to Access Health Informa tion Online using Patient Portal and [employer] Apps Indication:Left hip pain Start:11-Sep-2020 Instruction Type:Patient Education How to access health informa tion online Indication:Non-smoker Start:23-Feb-2020 Instruction Type:Patient Education How to access health informa tion online - Detail Indication:Non-smoker Start:23-Feb-2020 Instruction Type:Patient Education Patient Instructions Indication:Non-smoker Start:23-Feb-2020 Instruction Type:Provider Instructions for Treatment How to access health informa tion online Indication:Non-smoker Start:17-Sep-2019 Instruction Type:Patient Education How to access health informa tion online - Detail Indication:Non-smoker Start:17-Sep-2019 Instruction Type:Patient Education Patient Instructions Indication:Non-smoker Start:17-Sep-2019 Instruction Type:Provider Instructions for Treatment How to access health informa tion online Indication:BMI 35.0-35.9,adult Start:23-Jun-2019 Instruction Type:Patient Education How to access health informa tion online - Detail Indication:BMI 35.0-35.9,adult Start:23-Jun-2019 Instruction Type:Patient Education Patient Instructions Indication:BMI 35.0-35.9,adult Start:23-Jun-2019 Instruction Type:Provider Instructions for Treatment How to access health informa tion online Indication:Non-smoker Start:09-Mar-2019 Instruction Type:Patient Education How to access health informa tion online - Detail Indication:Non-smoker Start:09-Mar-2019 Instruction Type:Patient Education Patient Instructions Indication:Non-smoker Start:09-Mar-2019 Instruction Type:Provider Instructions for Treatment How to access health informa tion online Indication:Physical exam for work/school/camp (Renamed from Encounter for school health examination) Start:25-Feb-2019 Instruction Type:Patient Education How to access health informa tion online - Detail Indication:Physical exam for work/school/camp (Renamed from Encounter for school health examination) Start:25-Feb-2019 Instruction Type:Patient Education Patient Instructions Indication:Physical exam for work/school/camp (Renamed from Encounter for school health examination) Start:25-Feb-2019 Instruction Type:Provider Instructions for Treatment How to access health informa tion online Indication:Non-smoker Start:23-Feb-2019 Instruction Type:Patient Education How to access health informa tion online - Detail Indication:Non-smoker Start:23-Feb-2019 Instruction Type:Patient Education Patient Instructions Indication:Non-smoker Start:23-Feb-2019 Instruction Type:Provider Instructions for Treatment How to access health informa tion online Indication:Non-smoker Start:29-Jan-2019 Instruction Type:Patient Education How to access health informa tion online - Detail Indication:Non-smoker Start:29-Jan-2019 Instruction Type:Patient Education Patient Instructions Indication:Non-smoker Start:29-Jan-2019 Instruction Type:Provider Instructions for Treatment How to access health informa tion online Indication:Non-smoker Start:24-Sep-2018 Instruction Type:Patient Education How to access health informa tion online - Detail Indication:Non-smoker Start:24-Sep-2018 Instruction Type:Patient Education Patient Instructions Indication:Non-smoker Start:24-Sep-2018 Instruction Type:Provider Instructions for Treatment How to access health informa tion online Indication:BMI 35.0-35.9,adult Start:18-Jun-2018 Instruction Type:Patient Education How to access health informa tion online - Detail Indication:BMI 35.0-35.9,adult Start:18-Jun-2018 Instruction Type:Patient Education Patient Instructions Indication:BMI 35.0-35.9,adult Start:18-Jun-2018 Instruction Type:Provider Instructions for Treatment How to access health informa tion online Indication:Non-smoker Start:28-Apr-2018 Instruction Type:Patient Education How to access health informa tion online - Detail Indication:Non-smoker Start:28-Apr-2018 Instruction Type:Patient Education Patient Instructions Indication:Non-smoker Start:28-Apr-2018 Instruction Type:Provider Instructions for Treatment How to access health informa tion online Indication:Non-smoker Start:16-Apr-2018 Instruction Type:Patient Education How to access health informa tion online - Detail Indication:Non-smoker Start:16-Apr-2018 Instruction Type:Patient Education Patient Instructions Indication:Back pain, lumbosacral Start:16-Apr-2018 Instruction Type:Provider Instructions for Treatment How to access health informa tion online Indication:BMI 35.0-35.9,adult Start:26-Feb-2018 Instruction Type:Patient Education How to access health informa tion online - Detail Indication:BMI 35.0-35.9,adult Start:26-Feb-2018 Instruction Type:Patient Education Patient Instructions Indication:BMI 35.0-35.9,adult Start:26-Feb-2018 Instruction Type:Provider Instructions for Treatment How to access health informa tion online Indication:Nonsmoker Start:27-Feb-2017 Instruction Type:Patient Education How to access health informa tion online - Detail Indication:Nonsmoker Start:27-Feb-2017 Instruction Type:Patient Education Patient Instructions Indication:Nonsmoker Start:27-Feb-2017 Instruction Type:Provider Instructions for Treatment How to access health informa tion online Indication:Nonsmoker Start:06-Sep-2016 Instruction Type:Patient Education How to access health informa tion online - Detail Indication:Nonsmoker Start:06-Sep-2016 Instruction Type:Patient Education Patient Instructions Indication:Nonsmoker Start:06-Sep-2016 Instruction Type:Provider Instructions for Treatment How to access health informa tion online Indication:Neoplasm of uncertain behavior of skin Start:08-May-2016 Instruction Type:Patient Education How to access health informa tion online - Detail Indication:Neoplasm of uncertain behavior of skin Start:08-May-2016 Instruction Type:Patient Education Patient Instructions Indication:Neoplasm of uncertain behavior of skin Start:08-May-2016 Instruction Type:Provider Instructions for Treatment How to access health informa tion online Indication:BMI 38.0-38.9,adult Start:23-Apr-2016 Instruction Type:Patient Education How to access health informa tion online - Detail Indication:BMI 38.0-38.9,adult Start:23-Apr-2016 Instruction Type:Patient Education Patient Instructions Indication:BMI 38.0-38.9,adult Start:23-Apr-2016 Instruction Type:Provider Instructions for Treatment How to access health informa tion online Indication:Annual physical exam Start:17-Feb-2014 Instruction Type:Patient Education How to access health informa tion online - Detail Indication:Annual physical exam Start:17-Feb-2014 Instruction Type:Patient Education How to access health informa tion online Indication:Benign essential hypertension Start:02-Dec-2013 Instruction Type:Patient Education How to access health informa tion online - Detail Indication:Benign essential hypertension Start:02-Dec-2013 Instruction Type:Patient Education Patient Instructions Indication:Benign essential hypertension Start:02-Dec-2013 Instruction Type:Provider Instructions for Treatment Patient Instructions Indication:Benign essential hypertension Start:23-Sep-2012 Instruction Type:Provider Instructions for Treatment Patient Instructions Indication:Benign essential hypertension Start:13-Feb-2012 Instruction Type:Provider Instructions for Treatment [facility]; [facility] Work Phone: Instructions* Name Dates Details Patient Instructions Indication:BMI 34.0-34.9,adult Start:26-Aug-2022 Instruction Type:Provider Instructions for Treatment How to Access Health Informa tion Online using Patient Portal and [employer] Apps Indication:BMI 34.0-34.9,adult Start:26-Aug-2022 Instruction Type:Patient Education Patient Instructions Indication:BMI 34.0-34.9,adult Start:21-Aug-2022 Instruction Type:Provider Instructions for Treatment How to Access Health Informa tion Online using Patient Portal and [employer] Apps Indication:BMI 34.0-34.9,adult Start:21-Aug-2022 Instruction Type:Patient Education Patient Instructions Indication:Non-smoker Start:12-Jul-2022 Instruction Type:Provider Instructions for Treatment How to Access Health Informa tion Online using Patient Portal and [employer] Apps Indication:Non-smoker Start:12-Jul-2022 Instruction Type:Patient Education Patient Instructions Indication:Non-smoker Start:11-Apr-2022 Instruction Type:Provider Instructions for Treatment How to Access Health Informa tion Online using Patient Portal and [employer] Apps Indication:Non-smoker Start:11-Apr-2022 Instruction Type:Patient Education How to Access Health Informa tion Online using Patient Portal and [employer] Apps Indication:Non-smoker Start:28-Feb-2022 Instruction Type:Patient Education Patient Instructions Indication:Non-smoker Start:28-Feb-2022 Instruction Type:Provider Instructions for Treatment Patient Instructions Indication:Non-smoker Start:28-Sep-2021 Instruction Type:Provider Instructions for Treatment How to Access Health Informa tion Online using Patient Portal and [employer] Apps Indication:Non-smoker Start:28-Sep-2021 Instruction Type:Patient Education Patient Instructions Indication:BMI 33.0-33.9,adult Start:08-Feb-2021 Instruction Type:Provider Instructions for Treatment How to Access Health Informa tion Online using Patient Portal and [employer] Apps Indication:BMI 33.0-33.9,adult Start:08-Feb-2021 Instruction Type:Patient Education Patient Instructions Indication:Left hip pain Start:11-Sep-2020 Instruction Type:Provider Instructions for Treatment How to Access Health Informa tion Online using Patient Portal and [employer] Apps Indication:Left hip pain Start:11-Sep-2020 Instruction Type:Patient Education How to access health informa tion online Indication:Non-smoker Start:23-Feb-2020 Instruction Type:Patient Education How to access health informa tion online - Detail Indication:Non-smoker Start:23-Feb-2020 Instruction Type:Patient Education Patient Instructions Indication:Non-smoker Start:23-Feb-2020 Instruction Type:Provider Instructions for Treatment How to access health informa tion online Indication:Non-smoker Start:17-Sep-2019 Instruction Type:Patient Education How to access health informa tion online - Detail Indication:Non-smoker Start:17-Sep-2019 Instruction Type:Patient Education Patient Instructions Indication:Non-smoker Start:17-Sep-2019 Instruction Type:Provider Instructions for Treatment How to access health informa tion online Indication:BMI 35.0-35.9,adult Start:23-Jun-2019 Instruction Type:Patient Education How to access health informa tion online - Detail Indication:BMI 35.0-35.9,adult Start:23-Jun-2019 Instruction Type:Patient Education Patient Instructions Indication:BMI 35.0-35.9,adult Start:23-Jun-2019 Instruction Type:Provider Instructions for Treatment How to access health informa tion online Indication:Non-smoker Start:09-Mar-2019 Instruction Type:Patient Education How to access health informa tion online - Detail Indication:Non-smoker Start:09-Mar-2019 Instruction Type:Patient Education Patient Instructions Indication:Non-smoker Start:09-Mar-2019 Instruction Type:Provider Instructions for Treatment How to access health informa tion online Indication:Physical exam for work/school/camp (Renamed from Encounter for school health examination) Start:25-Feb-2019 Instruction Type:Patient Education How to access health informa tion online - Detail Indication:Physical exam for work/school/camp (Renamed from Encounter for school health examination) Start:25-Feb-2019 Instruction Type:Patient Education Patient Instructions Indication:Physical exam for work/school/camp (Renamed from Encounter for school health examination) Start:25-Feb-2019 Instruction Type:Provider Instructions for Treatment How to access health informa tion online Indication:Non-smoker Start:23-Feb-2019 Instruction Type:Patient Education How to access health informa tion online - Detail Indication:Non-smoker Start:23-Feb-2019 Instruction Type:Patient Education Patient Instructions Indication:Non-smoker Start:23-Feb-2019 Instruction Type:Provider Instructions for Treatment How to access health informa tion online Indication:Non-smoker Start:29-Jan-2019 Instruction Type:Patient Education How to access health informa tion online - Detail Indication:Non-smoker Start:29-Jan-2019 Instruction Type:Patient Education Patient Instructions Indication:Non-smoker Start:29-Jan-2019 Instruction Type:Provider Instructions for Treatment How to access health informa tion online Indication:Non-smoker Start:24-Sep-2018 Instruction Type:Patient Education How to access health informa tion online - Detail Indication:Non-smoker Start:24-Sep-2018 Instruction Type:Patient Education Patient Instructions Indication:Non-smoker Start:24-Sep-2018 Instruction Type:Provider Instructions for Treatment How to access health informa tion online Indication:BMI 35.0-35.9,adult Start:18-Jun-2018 Instruction Type:Patient Education How to access health informa tion online - Detail Indication:BMI 35.0-35.9,adult Start:18-Jun-2018 Instruction Type:Patient Education Patient Instructions Indication:BMI 35.0-35.9,adult Start:18-Jun-2018 Instruction Type:Provider Instructions for Treatment How to access health informa tion online Indication:Non-smoker Start:28-Apr-2018 Instruction Type:Patient Education How to access health informa tion online - Detail Indication:Non-smoker Start:28-Apr-2018 Instruction Type:Patient Education Patient Instructions Indication:Non-smoker Start:28-Apr-2018 Instruction Type:Provider Instructions for Treatment How to access health informa tion online Indication:Non-smoker Start:16-Apr-2018 Instruction Type:Patient Education How to access health informa tion online - Detail Indication:Non-smoker Start:16-Apr-2018 Instruction Type:Patient Education Patient Instructions Indication:Back pain, lumbosacral Start:16-Apr-2018 Instruction Type:Provider Instructions for Treatment How to access health informa tion online Indication:BMI 35.0-35.9,adult Start:26-Feb-2018 Instruction Type:Patient Education How to access health informa tion online - Detail Indication:BMI 35.0-35.9,adult Start:26-Feb-2018 Instruction Type:Patient Education Patient Instructions Indication:BMI 35.0-35.9,adult Start:26-Feb-2018 Instruction Type:Provider Instructions for Treatment How to access health informa tion online Indication:Nonsmoker Start:27-Feb-2017 Instruction Type:Patient Education How to access health informa tion online - Detail Indication:Nonsmoker Start:27-Feb-2017 Instruction Type:Patient Education Patient Instructions Indication:Nonsmoker Start:27-Feb-2017 Instruction Type:Provider Instructions for Treatment How to access health informa tion online Indication:Nonsmoker Start:06-Sep-2016 Instruction Type:Patient Education How to access health informa tion online - Detail Indication:Nonsmoker Start:06-Sep-2016 Instruction Type:Patient Education Patient Instructions Indication:Nonsmoker Start:06-Sep-2016 Instruction Type:Provider Instructions for Treatment How to access health informa tion online Indication:Neoplasm of uncertain behavior of skin Start:08-May-2016 Instruction Type:Patient Education How to access health informa tion online - Detail Indication:Neoplasm of uncertain behavior of skin Start:08-May-2016 Instruction Type:Patient Education Patient Instructions Indication:Neoplasm of uncertain behavior of skin Start:08-May-2016 Instruction Type:Provider Instructions for Treatment How to access health informa tion online Indication:BMI 38.0-38.9,adult Start:23-Apr-2016 Instruction Type:Patient Education How to access health informa tion online - Detail Indication:BMI 38.0-38.9,adult Start:23-Apr-2016 Instruction Type:Patient Education Patient Instructions Indication:BMI 38.0-38.9,adult Start:23-Apr-2016 Instruction Type:Provider Instructions for Treatment How to access health informa tion online Indication:Annual physical exam Start:17-Feb-2014 Instruction Type:Patient Education How to access health informa tion online - Detail Indication:Annual physical exam Start:17-Feb-2014 Instruction Type:Patient Education How to access health informa tion online Indication:Benign essential hypertension Start:02-Dec-2013 Instruction Type:Patient Education How to access health informa tion online - Detail Indication:Benign essential hypertension Start:02-Dec-2013 Instruction Type:Patient Education Patient Instructions Indication:Benign essential hypertension Start:02-Dec-2013 Instruction Type:Provider Instructions for Treatment Patient Instructions Indication:Benign essential hypertension Start:23-Sep-2012 Instruction Type:Provider Instructions for Treatment Patient Instructions Indication:Benign essential hypertension Start:13-Feb-2012 Instruction Type:Provider Instructions for Treatment [facility]; [facility] Work Phone: Instructions* Name Dates Details Patient Instructions Indication:BMI 34.0-34.9,adult Start:26-Aug-2022 Instruction Type:Provider Instructions for Treatment How to Access Health Informa tion Online using Patient Portal and [employer] Apps Indication:BMI 34.0-34.9,adult Start:26-Aug-2022 Instruction Type:Patient Education Patient Instructions Indication:BMI 34.0-34.9,adult Start:21-Aug-2022 Instruction Type:Provider Instructions for Treatment How to Access Health Informa tion Online using Patient Portal and [employer] Apps Indication:BMI 34.0-34.9,adult Start:21-Aug-2022 Instruction Type:Patient Education Patient Instructions Indication:Non-smoker Start:12-Jul-2022 Instruction Type:Provider Instructions for Treatment How to Access Health Informa tion Online using Patient Portal and [employer] Apps Indication:Non-smoker Start:12-Jul-2022 Instruction Type:Patient Education Patient Instructions Indication:Non-smoker Start:11-Apr-2022 Instruction Type:Provider Instructions for Treatment How to Access Health Informa tion Online using Patient Portal and [employer] Apps Indication:Non-smoker Start:11-Apr-2022 Instruction Type:Patient Education How to Access Health Informa tion Online using Patient Portal and [employer] Apps Indication:Non-smoker Start:28-Feb-2022 Instruction Type:Patient Education Patient Instructions Indication:Non-smoker Start:28-Feb-2022 Instruction Type:Provider Instructions for Treatment Patient Instructions Indication:Non-smoker Start:28-Sep-2021 Instruction Type:Provider Instructions for Treatment How to Access Health Informa tion Online using Patient Portal and [employer] Apps Indication:Non-smoker Start:28-Sep-2021 Instruction Type:Patient Education Patient Instructions Indication:BMI 33.0-33.9,adult Start:08-Feb-2021 Instruction Type:Provider Instructions for Treatment How to Access Health Informa tion Online using Patient Portal and [employer] Apps Indication:BMI 33.0-33.9,adult Start:08-Feb-2021 Instruction Type:Patient Education Patient Instructions Indication:Left hip pain Start:11-Sep-2020 Instruction Type:Provider Instructions for Treatment How to Access Health Informa tion Online using Patient Portal and [employer] Indication:Left hip pain Start:11-Sep-2020 Instruction Type:Patient Education How to access health informa tion online Indication:Non-smoker Start:23-Feb-2020 Instruction Type:Patient Education How to access health informa tion online - Detail Indication:Non-smoker Start:23-Feb-2020 Instruction Type:Patient Education Patient Instructions Indication:Non-smoker Start:23-Feb-2020 Instruction Type:Provider Instructions for Treatment How to access health informa tion online Indication:Non-smoker Start:17-Sep-2019 Instruction Type:Patient Education How to access health informa tion online - Detail Indication:Non-smoker Start:17-Sep-2019 Instruction Type:Patient Education Patient Instructions Indication:Non-smoker Start:17-Sep-2019 Instruction Type:Provider Instructions for Treatment How to access health informa tion online Indication:BMI 35.0-35.9,adult Start:23-Jun-2019 Instruction Type:Patient Education How to access health informa tion online - Detail Indication:BMI 35.0-35.9,adult Start:23-Jun-2019 Instruction Type:Patient Education Patient Instructions Indication:BMI 35.0-35.9,adult Start:23-Jun-2019 Instruction Type:Provider Instructions for Treatment How to access health informa tion online Indication:Non-smoker Start:09-Mar-2019 Instruction Type:Patient Education How to access health informa tion online - Detail Indication:Non-smoker Start:09-Mar-2019 Instruction Type:Patient Education Patient Instructions Indication:Non-smoker Start:09-Mar-2019 Instruction Type:Provider Instructions for Treatment How to access health informa tion online Indication:Physical exam for work/school/camp (Renamed from Encounter for school health examination) Start:25-Feb-2019 Instruction Type:Patient Education How to access health informa tion online - Detail Indication:Physical exam for work/school/camp (Renamed from Encounter for school health examination) Start:25-Feb-2019 Instruction Type:Patient Education Patient Instructions Indication:Physical exam for work/school/camp (Renamed from Encounter for school health examination) Start:25-Feb-2019 Instruction Type:Provider Instructions for Treatment How to access health informa tion online Indication:Non-smoker Start:23-Feb-2019 Instruction Type:Patient Education How to access health informa tion online - Detail Indication:Non-smoker Start:23-Feb-2019 Instruction Type:Patient Education Patient Instructions Indication:Non-smoker Start:23-Feb-2019 Instruction Type:Provider Instructions for Treatment How to access health informa tion online Indication:Non-smoker Start:29-Jan-2019 Instruction Type:Patient Education How to access health informa tion online - Detail Indication:Non-smoker Start:29-Jan-2019 Instruction Type:Patient Education Patient Instructions Indication:Non-smoker Start:29-Jan-2019 Instruction Type:Provider Instructions for Treatment How to access health informa tion online Indication:Non-smoker Start:24-Sep-2018 Instruction Type:Patient Education How to access health informa tion online - Detail Indication:Non-smoker Start:24-Sep-2018 Instruction Type:Patient Education Patient Instructions Indication:Non-smoker Start:24-Sep-2018 Instruction Type:Provider Instructions for Treatment How to access health informa tion online Indication:BMI 35.0-35.9,adult Start:18-Jun-2018 Instruction Type:Patient Education How to access health informa tion online - Detail Indication:BMI 35.0-35.9,adult Start:18-Jun-2018 Instruction Type:Patient Education Patient Instructions Indication:BMI 35.0-35.9,adult Start:18-Jun-2018 Instruction Type:Provider Instructions for Treatment How to access health informa tion online Indication:Non-smoker Start:28-Apr-2018 Instruction Type:Patient Education How to access health informa tion online - Detail Indication:Non-smoker Start:28-Apr-2018 Instruction Type:Patient Education Patient Instructions Indication:Non-smoker Start:28-Apr-2018 Instruction Type:Provider Instructions for Treatment How to access health informa tion online Indication:Non-smoker Start:16-Apr-2018 Instruction Type:Patient Education How to access health informa tion online - Detail Indication:Non-smoker Start:16-Apr-2018 Instruction Type:Patient Education Patient Instructions Indication:Back pain, lumbosacral Start:16-Apr-2018 Instruction Type:Provider Instructions for Treatment How to access health informa tion online Indication:BMI 35.0-35.9,adult Start:26-Feb-2018 Instruction Type:Patient Education How to access health informa tion online - Detail Indication:BMI 35.0-35.9,adult Start:26-Feb-2018 Instruction Type:Patient Education Patient Instructions Indication:BMI 35.0-35.9,adult Start:26-Feb-2018 Instruction Type:Provider Instructions for Treatment How to access health informa tion online Indication:Nonsmoker Start:27-Feb-2017 Instruction Type:Patient Education How to access health informa tion online - Detail Indication:Nonsmoker Start:27-Feb-2017 Instruction Type:Patient Education Patient Instructions Indication:Nonsmoker Start:27-Feb-2017 Instruction Type:Provider Instructions for Treatment How to access health informa tion online Indication:Nonsmoker Start:06-Sep-2016 Instruction Type:Patient Education How to access health informa tion online - Detail Indication:Nonsmoker Start:06-Sep-2016 Instruction Type:Patient Education Patient Instructions Indication:Nonsmoker Start:06-Sep-2016 Instruction Type:Provider Instructions for Treatment How to access health informa tion online Indication:Neoplasm of uncertain behavior of skin Start:08-May-2016 Instruction Type:Patient Education How to access health informa tion online - Detail Indication:Neoplasm of uncertain behavior of skin Start:08-May-2016 Instruction Type:Patient Education Patient Instructions Indication:Neoplasm of uncertain behavior of skin Start:08-May-2016 Instruction Type:Provider Instructions for Treatment How to access health informa tion online Indication:BMI 38.0-38.9,adult Start:23-Apr-2016 Instruction Type:Patient Education How to access health informa tion online - Detail Indication:BMI 38.0-38.9,adult Start:23-Apr-2016 Instruction Type:Patient Education Patient Instructions Indication:BMI 38.0-38.9,adult Start:23-Apr-2016 Instruction Type:Provider Instructions for Treatment How to access health informa tion online Indication:Annual physical exam Start:17-Feb-2014 Instruction Type:Patient Education How to access health informa tion online - Detail Indication:Annual physical exam Start:17-Feb-2014 Instruction Type:Patient Education How to access health informa tion online Indication:Benign essential hypertension Start:02-Dec-2013 Instruction Type:Patient Education How to access health informa tion online - Detail Indication:Benign essential hypertension Start:02-Dec-2013 Instruction Type:Patient Education Patient Instructions Indication:Benign essential hypertension Start:02-Dec-2013 Instruction Type:Provider Instructions for Treatment Patient Instructions Indication:Benign essential hypertension Start:23-Sep-2012 Instruction Type:Provider Instructions for Treatment Patient Instructions Indication:Benign essential hypertension Start:13-Feb-2012 Instruction Type:Provider Instructions for Treatment [facility]; [facility] Work Phone: Instructions* Name Dates Details Patient Instructions Indication:BMI 34.0-34.9,adult Start:02-Sep-2022 Instruction Type:Provider Instructions for Treatment How to Access Health Informa tion Online using Patient Portal and [employer] Indication:BMI 34.0-34.9,adult Start:02-Sep-2022 Instruction Type:Patient Education Patient Instructions Indication:BMI 34.0-34.9,adult Start:26-Aug-2022 Instruction Type:Provider Instructions for Treatment How to Access Health Informa tion Online using Patient Portal and [employer] Indication:BMI 34.0-34.9,adult Start:26-Aug-2022 Instruction Type:Patient Education Patient Instructions Indication:BMI 34.0-34.9,adult Start:21-Aug-2022 Instruction Type:Provider Instructions for Treatment How to Access Health Informa tion Online using Patient Portal and [employer] Indication:BMI 34.0-34.9,adult Start:21-Aug-2022 Instruction Type:Patient Education Patient Instructions Indication:Non-smoker Start:12-Jul-2022 Instruction Type:Provider Instructions for Treatment How to Access Health Informa tion Online using Patient Portal and [employer] Indication:Non-smoker Start:12-Jul-2022 Instruction Type:Patient Education Patient Instructions Indication:Non-smoker Start:11-Apr-2022 Instruction Type:Provider Instructions for Treatment How to Access Health Informa tion Online using Patient Portal and [employer] Indication:Non-smoker Start:11-Apr-2022 Instruction Type:Patient Education How to Access Health Informa tion Online using Patient Portal and [employer] Indication:Non-smoker Start:28-Feb-2022 Instruction Type:Patient Education Patient Instructions Indication:Non-smoker Start:28-Feb-2022 Instruction Type:Provider Instructions for Treatment Patient Instructions Indication:Non-smoker Start:28-Sep-2021 Instruction Type:Provider Instructions for Treatment How to Access Health Informa tion Online using Patient Portal and [employer] Indication:Non-smoker Start:28-Sep-2021 Instruction Type:Patient Education Patient Instructions Indication:BMI 33.0-33.9,adult Start:08-Feb-2021 Instruction Type:Provider Instructions for Treatment How to Access Health Informa tion Online using Patient Portal and [employer] Indication:BMI 33.0-33.9,adult Start:08-Feb-2021 Instruction Type:Patient Education Patient Instructions Indication:Left hip pain Start:11-Sep-2020 Instruction Type:Provider Instructions for Treatment How to Access Health Informa tion Online using Patient Portal and [employer] Indication:Left hip pain Start:11-Sep-2020 Instruction Type:Patient Education How to access health informa tion online Indication:Non-smoker Start:23-Feb-2020 Instruction Type:Patient Education How to access health informa tion online - Detail Indication:Non-smoker Start:23-Feb-2020 Instruction Type:Patient Education Patient Instructions Indication:Non-smoker Start:23-Feb-2020 Instruction Type:Provider Instructions for Treatment How to access health informa tion online Indication:Non-smoker Start:17-Sep-2019 Instruction Type:Patient Education How to access health informa tion online - Detail Indication:Non-smoker Start:17-Sep-2019 Instruction Type:Patient Education Patient Instructions Indication:Non-smoker Start:17-Sep-2019 Instruction Type:Provider Instructions for Treatment How to access health informa tion online Indication:BMI 35.0-35.9,adult Start:23-Jun-2019 Instruction Type:Patient Education How to access health informa tion online - Detail Indication:BMI 35.0-35.9,adult Start:23-Jun-2019 Instruction Type:Patient Education Patient Instructions Indication:BMI 35.0-35.9,adult Start:23-Jun-2019 Instruction Type:Provider Instructions for Treatment How to access health informa tion online Indication:Non-smoker Start:09-Mar-2019 Instruction Type:Patient Education How to access health informa tion online - Detail Indication:Non-smoker Start:09-Mar-2019 Instruction Type:Patient Education Patient Instructions Indication:Non-smoker Start:09-Mar-2019 Instruction Type:Provider Instructions for Treatment How to access health informa tion online Indication:Physical exam for work/school/camp (Renamed from Encounter for school health examination) Start:25-Feb-2019 Instruction Type:Patient Education How to access health informa tion online - Detail Indication:Physical exam for work/school/camp (Renamed from Encounter for school health examination) Start:25-Feb-2019 Instruction Type:Patient Education Patient Instructions Indication:Physical exam for work/school/camp (Renamed from Encounter for school health examination) Start:25-Feb-2019 Instruction Type:Provider Instructions for Treatment How to access health informa tion online Indication:Non-smoker Start:23-Feb-2019 Instruction Type:Patient Education How to access health informa tion online - Detail Indication:Non-smoker Start:23-Feb-2019 Instruction Type:Patient Education Patient Instructions Indication:Non-smoker Start:23-Feb-2019 Instruction Type:Provider Instructions for Treatment How to access health informa tion online Indication:Non-smoker Start:29-Jan-2019 Instruction Type:Patient Education How to access health informa tion online - Detail Indication:Non-smoker Start:29-Jan-2019 Instruction Type:Patient Education Patient Instructions Indication:Non-smoker Start:29-Jan-2019 Instruction Type:Provider Instructions for Treatment How to access health informa tion online Indication:Non-smoker Start:24-Sep-2018 Instruction Type:Patient Education How to access health informa tion online - Detail Indication:Non-smoker Start:24-Sep-2018 Instruction Type:Patient Education Patient Instructions Indication:Non-smoker Start:24-Sep-2018 Instruction Type:Provider Instructions for Treatment How to access health informa tion online Indication:BMI 35.0-35.9,adult Start:18-Jun-2018 Instruction Type:Patient Education How to access health informa tion online - Detail Indication:BMI 35.0-35.9,adult Start:18-Jun-2018 Instruction Type:Patient Education Patient Instructions Indication:BMI 35.0-35.9,adult Start:18-Jun-2018 Instruction Type:Provider Instructions for Treatment How to access health informa tion online Indication:Non-smoker Start:28-Apr-2018 Instruction Type:Patient Education How to access health informa tion online - Detail Indication:Non-smoker Start:28-Apr-2018 Instruction Type:Patient Education Patient Instructions Indication:Non-smoker Start:28-Apr-2018 Instruction Type:Provider Instructions for Treatment How to access health informa tion online Indication:Non-smoker Start:16-Apr-2018 Instruction Type:Patient Education How to access health informa tion online - Detail Indication:Non-smoker Start:16-Apr-2018 Instruction Type:Patient Education Patient Instructions Indication:Back pain, lumbosacral Start:16-Apr-2018 Instruction Type:Provider Instructions for Treatment How to access health informa tion online Indication:BMI 35.0-35.9,adult Start:26-Feb-2018 Instruction Type:Patient Education How to access health informa tion online - Detail Indication:BMI 35.0-35.9,adult Start:26-Feb-2018 Instruction Type:Patient Education Patient Instructions Indication:BMI 35.0-35.9,adult Start:26-Feb-2018 Instruction Type:Provider Instructions for Treatment How to access health informa tion online Indication:Nonsmoker Start:27-Feb-2017 Instruction Type:Patient Education How to access health informa tion online - Detail Indication:Nonsmoker Start:27-Feb-2017 Instruction Type:Patient Education Patient Instructions Indication:Nonsmoker Start:27-Feb-2017 Instruction Type:Provider Instructions for Treatment How to access health informa tion online Indication:Nonsmoker Start:06-Sep-2016 Instruction Type:Patient Education How to access health informa tion online - Detail Indication:Nonsmoker Start:06-Sep-2016 Instruction Type:Patient Education Patient Instructions Indication:Nonsmoker Start:06-Sep-2016 Instruction Type:Provider Instructions for Treatment How to access health informa tion online Indication:Neoplasm of uncertain behavior of skin Start:08-May-2016 Instruction Type:Patient Education How to access health informa tion online - Detail Indication:Neoplasm of uncertain behavior of skin Start:08-May-2016 Instruction Type:Patient Education Patient Instructions Indication:Neoplasm of uncertain behavior of skin Start:08-May-2016 Instruction Type:Provider Instructions for Treatment How to access health informa tion online Indication:BMI 38.0-38.9,adult Start:23-Apr-2016 Instruction Type:Patient Education How to access health informa tion online - Detail Indication:BMI 38.0-38.9,adult Start:23-Apr-2016 Instruction Type:Patient Education Patient Instructions Indication:BMI 38.0-38.9,adult Start:23-Apr-2016 Instruction Type:Provider Instructions for Treatment How to access health informa tion online Indication:Annual physical exam Start:17-Feb-2014 Instruction Type:Patient Education How to access health informa tion online - Detail Indication:Annual physical exam Start:17-Feb-2014 Instruction Type:Patient Education How to access health informa tion online Indication:Benign essential hypertension Start:02-Dec-2013 Instruction Type:Patient Education How to access health informa tion online - Detail Indication:Benign essential hypertension Start:02-Dec-2013 Instruction Type:Patient Education Patient Instructions Indication:Benign essential hypertension Start:02-Dec-2013 Instruction Type:Provider Instructions for Treatment Patient Instructions Indication:Benign essential hypertension Start:23-Sep-2012 Instruction Type:Provider Instructions for Treatment Patient Instructions Indication:Benign essential hypertension Start:13-Feb-2012 Instruction Type:Provider Instructions for Treatment [facility]; [facility] Work Phone: Instructions* Name Dates Details Patient Instructions Indication:BMI 34.0-34.9,adult Start:18-Sep-2022 Instruction Type:Provider Instructions for Treatment How to Access Health Informa tion Online using Patient Portal and [employer] Indication:BMI 34.0-34.9,adult Start:18-Sep-2022 Instruction Type:Patient Education Patient Instructions Indication:BMI 34.0-34.9,adult Start:02-Sep-2022 Instruction Type:Provider Instructions for Treatment How to Access Health Informa tion Online using Patient Portal and [employer] Indication:BMI 34.0-34.9,adult Start:02-Sep-2022 Instruction Type:Patient Education Patient Instructions Indication:BMI 34.0-34.9,adult Start:26-Aug-2022 Instruction Type:Provider Instructions for Treatment How to Access Health Informa tion Online using Patient Portal and [employer] Indication:BMI 34.0-34.9,adult Start:26-Aug-2022 Instruction Type:Patient Education Patient Instructions Indication:BMI 34.0-34.9,adult Start:21-Aug-2022 Instruction Type:Provider Instructions for Treatment How to Access Health Informa tion Online using Patient Portal and [employer] Indication:BMI 34.0-34.9,adult Start:21-Aug-2022 Instruction Type:Patient Education Patient Instructions Indication:Non-smoker Start:12-Jul-2022 Instruction Type:Provider Instructions for Treatment How to Access Health Informa tion Online using Patient Portal and [employer] Indication:Non-smoker Start:12-Jul-2022 Instruction Type:Patient Education Patient Instructions Indication:Non-smoker Start:11-Apr-2022 Instruction Type:Provider Instructions for Treatment How to Access Health Informa tion Online using Patient Portal and [employer] Indication:Non-smoker Start:11-Apr-2022 Instruction Type:Patient Education How to Access Health Informa tion Online using Patient Portal and [employer] Indication:Non-smoker Start:28-Feb-2022 Instruction Type:Patient Education Patient Instructions Indication:Non-smoker Start:28-Feb-2022 Instruction Type:Provider Instructions for Treatment Patient Instructions Indication:Non-smoker Start:28-Sep-2021 Instruction Type:Provider Instructions for Treatment How to Access Health Informa tion Online using Patient Portal and [employer] Indication:Non-smoker Start:28-Sep-2021 Instruction Type:Patient Education Patient Instructions Indication:BMI 33.0-33.9,adult Start:08-Feb-2021 Instruction Type:Provider Instructions for Treatment How to Access Health Informa tion Online using Patient Portal and [employer] Indication:BMI 33.0-33.9,adult Start:08-Feb-2021 Instruction Type:Patient Education Patient Instructions Indication:Left hip pain Start:11-Sep-2020 Instruction Type:Provider Instructions for Treatment How to Access Health Informa tion Online using Patient Portal and [employer] Indication:Left hip pain Start:11-Sep-2020 Instruction Type:Patient Education How to access health informa tion online Indication:Non-smoker Start:23-Feb-2020 Instruction Type:Patient Education How to access health informa tion online - Detail Indication:Non-smoker Start:23-Feb-2020 Instruction Type:Patient Education Patient Instructions Indication:Non-smoker Start:23-Feb-2020 Instruction Type:Provider Instructions for Treatment How to access health informa tion online Indication:Non-smoker Start:17-Sep-2019 Instruction Type:Patient Education How to access health informa tion online - Detail Indication:Non-smoker Start:17-Sep-2019 Instruction Type:Patient Education Patient Instructions Indication:Non-smoker Start:17-Sep-2019 Instruction Type:Provider Instructions for Treatment How to access health informa tion online Indication:BMI 35.0-35.9,adult Start:23-Jun-2019 Instruction Type:Patient Education How to access health informa tion online - Detail Indication:BMI 35.0-35.9,adult Start:23-Jun-2019 Instruction Type:Patient Education Patient Instructions Indication:BMI 35.0-35.9,adult Start:23-Jun-2019 Instruction Type:Provider Instructions for Treatment How to access health informa tion online Indication:Non-smoker Start:09-Mar-2019 Instruction Type:Patient Education How to access health informa tion online - Detail Indication:Non-smoker Start:09-Mar-2019 Instruction Type:Patient Education Patient Instructions Indication:Non-smoker Start:09-Mar-2019 Instruction Type:Provider Instructions for Treatment How to access health informa tion online Indication:Physical exam for work/school/camp (Renamed from Encounter for school health examination) Start:25-Feb-2019 Instruction Type:Patient Education How to access health informa tion online - Detail Indication:Physical exam for work/school/camp (Renamed from Encounter for school health examination) Start:25-Feb-2019 Instruction Type:Patient Education Patient Instructions Indication:Physical exam for work/school/camp (Renamed from Encounter for school health examination) Start:25-Feb-2019 Instruction Type:Provider Instructions for Treatment How to access health informa tion online Indication:Non-smoker Start:23-Feb-2019 Instruction Type:Patient Education How to access health informa tion online - Detail Indication:Non-smoker Start:23-Feb-2019 Instruction Type:Patient Education Patient Instructions Indication:Non-smoker Start:23-Feb-2019 Instruction Type:Provider Instructions for Treatment How to access health informa tion online Indication:Non-smoker Start:29-Jan-2019 Instruction Type:Patient Education How to access health informa tion online - Detail Indication:Non-smoker Start:29-Jan-2019 Instruction Type:Patient Education Patient Instructions Indication:Non-smoker Start:29-Jan-2019 Instruction Type:Provider Instructions for Treatment How to access health informa tion online Indication:Non-smoker Start:24-Sep-2018 Instruction Type:Patient Education How to access health informa tion online - Detail Indication:Non-smoker Start:24-Sep-2018 Instruction Type:Patient Education Patient Instructions Indication:Non-smoker Start:24-Sep-2018 Instruction Type:Provider Instructions for Treatment How to access health informa tion online Indication:BMI 35.0-35.9,adult Start:18-Jun-2018 Instruction Type:Patient Education How to access health informa tion online - Detail Indication:BMI 35.0-35.9,adult Start:18-Jun-2018 Instruction Type:Patient Education Patient Instructions Indication:BMI 35.0-35.9,adult Start:18-Jun-2018 Instruction Type:Provider Instructions for Treatment How to access health informa tion online Indication:Non-smoker Start:28-Apr-2018 Instruction Type:Patient Education How to access health informa tion online - Detail Indication:Non-smoker Start:28-Apr-2018 Instruction Type:Patient Education Patient Instructions Indication:Non-smoker Start:28-Apr-2018 Instruction Type:Provider Instructions for Treatment How to access health informa tion online Indication:Non-smoker Start:16-Apr-2018 Instruction Type:Patient Education How to access health informa tion online - Detail Indication:Non-smoker Start:16-Apr-2018 Instruction Type:Patient Education Patient Instructions Indication:Back pain, lumbosacral Start:16-Apr-2018 Instruction Type:Provider Instructions for Treatment How to access health informa tion online Indication:BMI 35.0-35.9,adult Start:26-Feb-2018 Instruction Type:Patient Education How to access health informa tion online - Detail Indication:BMI 35.0-35.9,adult Start:26-Feb-2018 Instruction Type:Patient Education Patient Instructions Indication:BMI 35.0-35.9,adult Start:26-Feb-2018 Instruction Type:Provider Instructions for Treatment How to access health informa tion online Indication:Nonsmoker Start:27-Feb-2017 Instruction Type:Patient Education How to access health informa tion online - Detail Indication:Nonsmoker Start:27-Feb-2017 Instruction Type:Patient Education Patient Instructions Indication:Nonsmoker Start:27-Feb-2017 Instruction Type:Provider Instructions for Treatment How to access health informa tion online Indication:Nonsmoker Start:06-Sep-2016 Instruction Type:Patient Education How to access health informa tion online - Detail Indication:Nonsmoker Start:06-Sep-2016 Instruction Type:Patient Education Patient Instructions Indication:Nonsmoker Start:06-Sep-2016 Instruction Type:Provider Instructions for Treatment How to access health informa tion online Indication:Neoplasm of uncertain behavior of skin Start:08-May-2016 Instruction Type:Patient Education How to access health informa tion online - Detail Indication:Neoplasm of uncertain behavior of skin Start:08-May-2016 Instruction Type:Patient Education Patient Instructions Indication:Neoplasm of uncertain behavior of skin Start:08-May-2016 Instruction Type:Provider Instructions for Treatment How to access health informa tion online Indication:BMI 38.0-38.9,adult Start:23-Apr-2016 Instruction Type:Patient Education How to access health informa tion online - Detail Indication:BMI 38.0-38.9,adult Start:23-Apr-2016 Instruction Type:Patient Education Patient Instructions Indication:BMI 38.0-38.9,adult Start:23-Apr-2016 Instruction Type:Provider Instructions for Treatment How to access health informa tion online Indication:Annual physical exam Start:17-Feb-2014 Instruction Type:Patient Education How to access health informa tion online - Detail Indication:Annual physical exam Start:17-Feb-2014 Instruction Type:Patient Education How to access health informa tion online Indication:Benign essential hypertension Start:02-Dec-2013 Instruction Type:Patient Education How to access health informa tion online - Detail Indication:Benign essential hypertension Start:02-Dec-2013 Instruction Type:Patient Education Patient Instructions Indication:Benign essential hypertension Start:02-Dec-2013 Instruction Type:Provider Instructions for Treatment Patient Instructions Indication:Benign essential hypertension Start:23-Sep-2012 Instruction Type:Provider Instructions for Treatment Patient Instructions Indication:Benign essential hypertension Start:13-Feb-2012 Instruction Type:Provider Instructions for Treatment [facility]; [facility] Work Phone: Instructions* Name Dates Details Patient Instructions Indication:BMI 34.0-34.9,adult Start:18-Sep-2022 Instruction Type:Provider Instructions for Treatment How to Access Health Informa tion Online using Patient Portal and [employer] Apps Indication:BMI 34.0-34.9,adult Start:18-Sep-2022 Instruction Type:Patient Education Patient Instructions Indication:BMI 34.0-34.9,adult Start:02-Sep-2022 Instruction Type:Provider Instructions for Treatment How to Access Health Informa tion Online using Patient Portal and [employer] Indication:BMI 34.0-34.9,adult Start:02-Sep-2022 Instruction Type:Patient Education Patient Instructions Indication:BMI 34.0-34.9,adult Start:26-Aug-2022 Instruction Type:Provider Instructions for Treatment How to Access Health Informa tion Online using Patient Portal and [employer] Indication:BMI 34.0-34.9,adult Start:26-Aug-2022 Instruction Type:Patient Education Patient Instructions Indication:BMI 34.0-34.9,adult Start:21-Aug-2022 Instruction Type:Provider Instructions for Treatment How to Access Health Informa tion Online using Patient Portal and [employer] Indication:BMI 34.0-34.9,adult Start:21-Aug-2022 Instruction Type:Patient Education Patient Instructions Indication:Non-smoker Start:12-Jul-2022 Instruction Type:Provider Instructions for Treatment How to Access Health Informa tion Online using Patient Portal and [employer] Indication:Non-smoker Start:12-Jul-2022 Instruction Type:Patient Education Patient Instructions Indication:Non-smoker Start:11-Apr-2022 Instruction Type:Provider Instructions for Treatment How to Access Health Informa tion Online using Patient Portal and [employer] Apps Indication:Non-smoker Start:11-Apr-2022 Instruction Type:Patient Education How to Access Health Informa tion Online using Patient Portal and [employer] Apps Indication:Non-smoker Start:28-Feb-2022 Instruction Type:Patient Education Patient Instructions Indication:Non-smoker Start:28-Feb-2022 Instruction Type:Provider Instructions for Treatment Patient Instructions Indication:Non-smoker Start:28-Sep-2021 Instruction Type:Provider Instructions for Treatment How to Access Health Informa tion Online using Patient Portal and [employer] Apps Indication:Non-smoker Start:28-Sep-2021 Instruction Type:Patient Education Patient Instructions Indication:BMI 33.0-33.9,adult Start:08-Feb-2021 Instruction Type:Provider Instructions for Treatment How to Access Health Informa tion Online using Patient Portal and [employer] Indication:BMI 33.0-33.9,adult Start:08-Feb-2021 Instruction Type:Patient Education Patient Instructions Indication:Left hip pain Start:11-Sep-2020 Instruction Type:Provider Instructions for Treatment How to Access Health Informa tion Online using Patient Portal and [employer] Apps Indication:Left hip pain Start:11-Sep-2020 Instruction Type:Patient Education How to access health informa tion online Indication:Non-smoker Start:23-Feb-2020 Instruction Type:Patient Education How to access health informa tion online - Detail Indication:Non-smoker Start:23-Feb-2020 Instruction Type:Patient Education Patient Instructions Indication:Non-smoker Start:23-Feb-2020 Instruction Type:Provider Instructions for Treatment How to access health informa tion online Indication:Non-smoker Start:17-Sep-2019 Instruction Type:Patient Education How to access health informa tion online - Detail Indication:Non-smoker Start:17-Sep-2019 Instruction Type:Patient Education Patient Instructions Indication:Non-smoker Start:17-Sep-2019 Instruction Type:Provider Instructions for Treatment How to access health informa tion online Indication:BMI 35.0-35.9,adult Start:23-Jun-2019 Instruction Type:Patient Education How to access health informa tion online - Detail Indication:BMI 35.0-35.9,adult Start:23-Jun-2019 Instruction Type:Patient Education Patient Instructions Indication:BMI 35.0-35.9,adult Start:23-Jun-2019 Instruction Type:Provider Instructions for Treatment How to access health informa tion online Indication:Non-smoker Start:09-Mar-2019 Instruction Type:Patient Education How to access health informa tion online - Detail Indication:Non-smoker Start:09-Mar-2019 Instruction Type:Patient Education Patient Instructions Indication:Non-smoker Start:09-Mar-2019 Instruction Type:Provider Instructions for Treatment How to access health informa tion online Indication:Physical exam for work/school/camp (Renamed from Encounter for school health examination) Start:25-Feb-2019 Instruction Type:Patient Education How to access health informa tion online - Detail Indication:Physical exam for work/school/camp (Renamed from Encounter for school health examination) Start:25-Feb-2019 Instruction Type:Patient Education Patient Instructions Indication:Physical exam for work/school/camp (Renamed from Encounter for school health examination) Start:25-Feb-2019 Instruction Type:Provider Instructions for Treatment How to access health informa tion online Indication:Non-smoker Start:23-Feb-2019 Instruction Type:Patient Education How to access health informa tion online - Detail Indication:Non-smoker Start:23-Feb-2019 Instruction Type:Patient Education Patient Instructions Indication:Non-smoker Start:23-Feb-2019 Instruction Type:Provider Instructions for Treatment How to access health informa tion online Indication:Non-smoker Start:29-Jan-2019 Instruction Type:Patient Education How to access health informa tion online - Detail Indication:Non-smoker Start:29-Jan-2019 Instruction Type:Patient Education Patient Instructions Indication:Non-smoker Start:29-Jan-2019 Instruction Type:Provider Instructions for Treatment How to access health informa tion online Indication:Non-smoker Start:24-Sep-2018 Instruction Type:Patient Education How to access health informa tion online - Detail Indication:Non-smoker Start:24-Sep-2018 Instruction Type:Patient Education Patient Instructions Indication:Non-smoker Start:24-Sep-2018 Instruction Type:Provider Instructions for Treatment How to access health informa tion online Indication:BMI 35.0-35.9,adult Start:18-Jun-2018 Instruction Type:Patient Education How to access health informa tion online - Detail Indication:BMI 35.0-35.9,adult Start:18-Jun-2018 Instruction Type:Patient Education Patient Instructions Indication:BMI 35.0-35.9,adult Start:18-Jun-2018 Instruction Type:Provider Instructions for Treatment How to access health informa tion online Indication:Non-smoker Start:28-Apr-2018 Instruction Type:Patient Education How to access health informa tion online - Detail Indication:Non-smoker Start:28-Apr-2018 Instruction Type:Patient Education Patient Instructions Indication:Non-smoker Start:28-Apr-2018 Instruction Type:Provider Instructions for Treatment How to access health informa tion online Indication:Non-smoker Start:16-Apr-2018 Instruction Type:Patient Education How to access health informa tion online - Detail Indication:Non-smoker Start:16-Apr-2018 Instruction Type:Patient Education Patient Instructions Indication:Back pain, lumbosacral Start:16-Apr-2018 Instruction Type:Provider Instructions for Treatment How to access health informa tion online Indication:BMI 35.0-35.9,adult Start:26-Feb-2018 Instruction Type:Patient Education How to access health informa tion online - Detail Indication:BMI 35.0-35.9,adult Start:26-Feb-2018 Instruction Type:Patient Education Patient Instructions Indication:BMI 35.0-35.9,adult Start:26-Feb-2018 Instruction Type:Provider Instructions for Treatment How to access health informa tion online Indication:Nonsmoker Start:27-Feb-2017 Instruction Type:Patient Education How to access health informa tion online - Detail Indication:Nonsmoker Start:27-Feb-2017 Instruction Type:Patient Education Patient Instructions Indication:Nonsmoker Start:27-Feb-2017 Instruction Type:Provider Instructions for Treatment How to access health informa tion online Indication:Nonsmoker Start:06-Sep-2016 Instruction Type:Patient Education How to access health informa tion online - Detail Indication:Nonsmoker Start:06-Sep-2016 Instruction Type:Patient Education Patient Instructions Indication:Nonsmoker Start:06-Sep-2016 Instruction Type:Provider Instructions for Treatment How to access health informa tion online Indication:Neoplasm of uncertain behavior of skin Start:08-May-2016 Instruction Type:Patient Education How to access health informa tion online - Detail Indication:Neoplasm of uncertain behavior of skin Start:08-May-2016 Instruction Type:Patient Education Patient Instructions Indication:Neoplasm of uncertain behavior of skin Start:08-May-2016 Instruction Type:Provider Instructions for Treatment How to access health informa tion online Indication:BMI 38.0-38.9,adult Start:23-Apr-2016 Instruction Type:Patient Education How to access health informa tion online - Detail Indication:BMI 38.0-38.9,adult Start:23-Apr-2016 Instruction Type:Patient Education Patient Instructions Indication:BMI 38.0-38.9,adult Start:23-Apr-2016 Instruction Type:Provider Instructions for Treatment How to access health informa tion online Indication:Annual physical exam Start:17-Feb-2014 Instruction Type:Patient Education How to access health informa tion online - Detail Indication:Annual physical exam Start:17-Feb-2014 Instruction Type:Patient Education How to access health informa tion online Indication:Benign essential hypertension Start:02-Dec-2013 Instruction Type:Patient Education How to access health informa tion online - Detail Indication:Benign essential hypertension Start:02-Dec-2013 Instruction Type:Patient Education Patient Instructions Indication:Benign essential hypertension Start:02-Dec-2013 Instruction Type:Provider Instructions for Treatment Patient Instructions Indication:Benign essential hypertension Start:23-Sep-2012 Instruction Type:Provider Instructions for Treatment Patient Instructions Indication:Benign essential hypertension Start:13-Feb-2012 Instruction Type:Provider Instructions for Treatment [facility]; [facility] Work Phone: Instructions* Name Dates Details Patient Instructions Indication:BMI 34.0-34.9,adult Start:18-Sep-2022 Instruction Type:Provider Instructions for Treatment How to Access Health Informa tion Online using Patient Portal and [employer] Apps Indication:BMI 34.0-34.9,adult Start:18-Sep-2022 Instruction Type:Patient Education Patient Instructions Indication:BMI 34.0-34.9,adult Start:02-Sep-2022 Instruction Type:Provider Instructions for Treatment How to Access Health Informa tion Online using Patient Portal and [employer] Apps Indication:BMI 34.0-34.9,adult Start:02-Sep-2022 Instruction Type:Patient Education Patient Instructions Indication:BMI 34.0-34.9,adult Start:26-Aug-2022 Instruction Type:Provider Instructions for Treatment How to Access Health Informa tion Online using Patient Portal and [employer] Apps Indication:BMI 34.0-34.9,adult Start:26-Aug-2022 Instruction Type:Patient Education Patient Instructions Indication:BMI 34.0-34.9,adult Start:21-Aug-2022 Instruction Type:Provider Instructions for Treatment How to Access Health Informa tion Online using Patient Portal and [employer] Indication:BMI 34.0-34.9,adult Start:21-Aug-2022 Instruction Type:Patient Education Patient Instructions Indication:Non-smoker Start:12-Jul-2022 Instruction Type:Provider Instructions for Treatment How to Access Health Informa tion Online using Patient Portal and [employer] Indication:Non-smoker Start:12-Jul-2022 Instruction Type:Patient Education Patient Instructions Indication:Non-smoker Start:11-Apr-2022 Instruction Type:Provider Instructions for Treatment How to Access Health Informa tion Online using Patient Portal and [employer] Apps Indication:Non-smoker Start:11-Apr-2022 Instruction Type:Patient Education How to Access Health Informa tion Online using Patient Portal and [employer] Apps Indication:Non-smoker Start:28-Feb-2022 Instruction Type:Patient Education Patient Instructions Indication:Non-smoker Start:28-Feb-2022 Instruction Type:Provider Instructions for Treatment Patient Instructions Indication:Non-smoker Start:28-Sep-2021 Instruction Type:Provider Instructions for Treatment How to Access Health Informa tion Online using Patient Portal and [employer] Apps Indication:Non-smoker Start:28-Sep-2021 Instruction Type:Patient Education Patient Instructions Indication:BMI 33.0-33.9,adult Start:08-Feb-2021 Instruction Type:Provider Instructions for Treatment How to Access Health Informa tion Online using Patient Portal and [employer] Apps Indication:BMI 33.0-33.9,adult Start:08-Feb-2021 Instruction Type:Patient Education Patient Instructions Indication:Left hip pain Start:11-Sep-2020 Instruction Type:Provider Instructions for Treatment How to Access Health Informa tion Online using Patient Portal and [employer] Apps Indication:Left hip pain Start:11-Sep-2020 Instruction Type:Patient Education How to access health informa tion online Indication:Non-smoker Start:23-Feb-2020 Instruction Type:Patient Education How to access health informa tion online - Detail Indication:Non-smoker Start:23-Feb-2020 Instruction Type:Patient Education Patient Instructions Indication:Non-smoker Start:23-Feb-2020 Instruction Type:Provider Instructions for Treatment How to access health informa tion online Indication:Non-smoker Start:17-Sep-2019 Instruction Type:Patient Education How to access health informa tion online - Detail Indication:Non-smoker Start:17-Sep-2019 Instruction Type:Patient Education Patient Instructions Indication:Non-smoker Start:17-Sep-2019 Instruction Type:Provider Instructions for Treatment How to access health informa tion online Indication:BMI 35.0-35.9,adult Start:23-Jun-2019 Instruction Type:Patient Education How to access health informa tion online - Detail Indication:BMI 35.0-35.9,adult Start:23-Jun-2019 Instruction Type:Patient Education Patient Instructions Indication:BMI 35.0-35.9,adult Start:23-Jun-2019 Instruction Type:Provider Instructions for Treatment How to access health informa tion online Indication:Non-smoker Start:09-Mar-2019 Instruction Type:Patient Education How to access health informa tion online - Detail Indication:Non-smoker Start:09-Mar-2019 Instruction Type:Patient Education Patient Instructions Indication:Non-smoker Start:09-Mar-2019 Instruction Type:Provider Instructions for Treatment How to access health informa tion online Indication:Physical exam for work/school/camp (Renamed from Encounter for school health examination) Start:25-Feb-2019 Instruction Type:Patient Education How to access health informa tion online - Detail Indication:Physical exam for work/school/camp (Renamed from Encounter for school health examination) Start:25-Feb-2019 Instruction Type:Patient Education Patient Instructions Indication:Physical exam for work/school/camp (Renamed from Encounter for school health examination) Start:25-Feb-2019 Instruction Type:Provider Instructions for Treatment How to access health informa tion online Indication:Non-smoker Start:23-Feb-2019 Instruction Type:Patient Education How to access health informa tion online - Detail Indication:Non-smoker Start:23-Feb-2019 Instruction Type:Patient Education Patient Instructions Indication:Non-smoker Start:23-Feb-2019 Instruction Type:Provider Instructions for Treatment How to access health informa tion online Indication:Non-smoker Start:29-Jan-2019 Instruction Type:Patient Education How to access health informa tion online - Detail Indication:Non-smoker Start:29-Jan-2019 Instruction Type:Patient Education Patient Instructions Indication:Non-smoker Start:29-Jan-2019 Instruction Type:Provider Instructions for Treatment How to access health informa tion online Indication:Non-smoker Start:24-Sep-2018 Instruction Type:Patient Education How to access health informa tion online - Detail Indication:Non-smoker Start:24-Sep-2018 Instruction Type:Patient Education Patient Instructions Indication:Non-smoker Start:24-Sep-2018 Instruction Type:Provider Instructions for Treatment How to access health informa tion online Indication:BMI 35.0-35.9,adult Start:18-Jun-2018 Instruction Type:Patient Education How to access health informa tion online - Detail Indication:BMI 35.0-35.9,adult Start:18-Jun-2018 Instruction Type:Patient Education Patient Instructions Indication:BMI 35.0-35.9,adult Start:18-Jun-2018 Instruction Type:Provider Instructions for Treatment How to access health informa tion online Indication:Non-smoker Start:28-Apr-2018 Instruction Type:Patient Education How to access health informa tion online - Detail Indication:Non-smoker Start:28-Apr-2018 Instruction Type:Patient Education Patient Instructions Indication:Non-smoker Start:28-Apr-2018 Instruction Type:Provider Instructions for Treatment How to access health informa tion online Indication:Non-smoker Start:16-Apr-2018 Instruction Type:Patient Education How to access health informa tion online - Detail Indication:Non-smoker Start:16-Apr-2018 Instruction Type:Patient Education Patient Instructions Indication:Back pain, lumbosacral Start:16-Apr-2018 Instruction Type:Provider Instructions for Treatment How to access health informa tion online Indication:BMI 35.0-35.9,adult Start:26-Feb-2018 Instruction Type:Patient Education How to access health informa tion online - Detail Indication:BMI 35.0-35.9,adult Start:26-Feb-2018 Instruction Type:Patient Education Patient Instructions Indication:BMI 35.0-35.9,adult Start:26-Feb-2018 Instruction Type:Provider Instructions for Treatment How to access health informa tion online Indication:Nonsmoker Start:27-Feb-2017 Instruction Type:Patient Education How to access health informa tion online - Detail Indication:Nonsmoker Start:27-Feb-2017 Instruction Type:Patient Education Patient Instructions Indication:Nonsmoker Start:27-Feb-2017 Instruction Type:Provider Instructions for Treatment How to access health informa tion online Indication:Nonsmoker Start:06-Sep-2016 Instruction Type:Patient Education How to access health informa tion online - Detail Indication:Nonsmoker Start:06-Sep-2016 Instruction Type:Patient Education Patient Instructions Indication:Nonsmoker Start:06-Sep-2016 Instruction Type:Provider Instructions for Treatment How to access health informa tion online Indication:Neoplasm of uncertain behavior of skin Start:08-May-2016 Instruction Type:Patient Education How to access health informa tion online - Detail Indication:Neoplasm of uncertain behavior of skin Start:08-May-2016 Instruction Type:Patient Education Patient Instructions Indication:Neoplasm of uncertain behavior of skin Start:08-May-2016 Instruction Type:Provider Instructions for Treatment How to access health informa tion online Indication:BMI 38.0-38.9,adult Start:23-Apr-2016 Instruction Type:Patient Education How to access health informa tion online - Detail Indication:BMI 38.0-38.9,adult Start:23-Apr-2016 Instruction Type:Patient Education Patient Instructions Indication:BMI 38.0-38.9,adult Start:23-Apr-2016 Instruction Type:Provider Instructions for Treatment How to access health informa tion online Indication:Annual physical exam Start:17-Feb-2014 Instruction Type:Patient Education How to access health informa tion online - Detail Indication:Annual physical exam Start:17-Feb-2014 Instruction Type:Patient Education How to access health informa tion online Indication:Benign essential hypertension Start:02-Dec-2013 Instruction Type:Patient Education How to access health informa tion online - Detail Indication:Benign essential hypertension Start:02-Dec-2013 Instruction Type:Patient Education Patient Instructions Indication:Benign essential hypertension Start:02-Dec-2013 Instruction Type:Provider Instructions for Treatment Patient Instructions Indication:Benign essential hypertension Start:23-Sep-2012 Instruction Type:Provider Instructions for Treatment Patient Instructions Indication:Benign essential hypertension Start:13-Feb-2012 Instruction Type:Provider Instructions for Treatment [facility] Work Phone: Instructions* Name Dates Details Patient Instructions Indication:Non-smoker Start:26-Mar-2023 Instruction Type:Provider Instructions for Treatment How to Access Health Informa tion Online using Patient Portal and [employer] Apps Indication:Non-smoker Start:26-Mar-2023 Instruction Type:Patient Education Patient Instructions Indication:BMI 34.0-34.9,adult Start:18-Sep-2022 Instruction Type:Provider Instructions for Treatment How to Access Health Informa tion Online using Patient Portal and [employer] Apps Indication:BMI 34.0-34.9,adult Start:18-Sep-2022 Instruction Type:Patient Education Patient Instructions Indication:BMI 34.0-34.9,adult Start:02-Sep-2022 Instruction Type:Provider Instructions for Treatment How to Access Health Informa tion Online using Patient Portal and [employer] Apps Indication:BMI 34.0-34.9,adult Start:02-Sep-2022 Instruction Type:Patient Education Patient Instructions Indication:BMI 34.0-34.9,adult Start:26-Aug-2022 Instruction Type:Provider Instructions for Treatment How to Access Health Informa tion Online using Patient Portal and [employer] Indication:BMI 34.0-34.9,adult Start:26-Aug-2022 Instruction Type:Patient Education Patient Instructions Indication:BMI 34.0-34.9,adult Start:21-Aug-2022 Instruction Type:Provider Instructions for Treatment How to Access Health Informa tion Online using Patient Portal and [employer] Apps Indication:BMI 34.0-34.9,adult Start:21-Aug-2022 Instruction Type:Patient Education Patient Instructions Indication:Non-smoker Start:12-Jul-2022 Instruction Type:Provider Instructions for Treatment How to Access Health Informa tion Online using Patient Portal and [employer] Apps Indication:Non-smoker Start:12-Jul-2022 Instruction Type:Patient Education Patient Instructions Indication:Non-smoker Start:11-Apr-2022 Instruction Type:Provider Instructions for Treatment How to Access Health Informa tion Online using Patient Portal and [employer] Indication:Non-smoker Start:11-Apr-2022 Instruction Type:Patient Education How to Access Health Informa tion Online using Patient Portal and [employer] Apps Indication:Non-smoker Start:28-Feb-2022 Instruction Type:Patient Education Patient Instructions Indication:Non-smoker Start:28-Feb-2022 Instruction Type:Provider Instructions for Treatment Patient Instructions Indication:Non-smoker Start:28-Sep-2021 Instruction Type:Provider Instructions for Treatment How to Access Health Informa tion Online using Patient Portal and [employer] Apps Indication:Non-smoker Start:28-Sep-2021 Instruction Type:Patient Education Patient Instructions Indication:BMI 33.0-33.9,adult Start:08-Feb-2021 Instruction Type:Provider Instructions for Treatment How to Access Health Informa tion Online using Patient Portal and [employer] Indication:BMI 33.0-33.9,adult Start:08-Feb-2021 Instruction Type:Patient Education Patient Instructions Indication:Left hip pain Start:11-Sep-2020 Instruction Type:Provider Instructions for Treatment How to Access Health Informa tion Online using Patient Portal and [employer] Apps Indication:Left hip pain Start:11-Sep-2020 Instruction Type:Patient Education How to access health informa tion online Indication:Non-smoker Start:23-Feb-2020 Instruction Type:Patient Education How to access health informa tion online - Detail Indication:Non-smoker Start:23-Feb-2020 Instruction Type:Patient Education Patient Instructions Indication:Non-smoker Start:23-Feb-2020 Instruction Type:Provider Instructions for Treatment How to access health informa tion online Indication:Non-smoker Start:17-Sep-2019 Instruction Type:Patient Education How to access health informa tion online - Detail Indication:Non-smoker Start:17-Sep-2019 Instruction Type:Patient Education Patient Instructions Indication:Non-smoker Start:17-Sep-2019 Instruction Type:Provider Instructions for Treatment How to access health informa tion online Indication:BMI 35.0-35.9,adult Start:23-Jun-2019 Instruction Type:Patient Education How to access health informa tion online - Detail Indication:BMI 35.0-35.9,adult Start:23-Jun-2019 Instruction Type:Patient Education Patient Instructions Indication:BMI 35.0-35.9,adult Start:23-Jun-2019 Instruction Type:Provider Instructions for Treatment How to access health informa tion online Indication:Non-smoker Start:09-Mar-2019 Instruction Type:Patient Education How to access health informa tion online - Detail Indication:Non-smoker Start:09-Mar-2019 Instruction Type:Patient Education Patient Instructions Indication:Non-smoker Start:09-Mar-2019 Instruction Type:Provider Instructions for Treatment How to access health informa tion online Indication:Physical exam for work/school/camp (Renamed from Encounter for school health examination) Start:25-Feb-2019 Instruction Type:Patient Education How to access health informa tion online - Detail Indication:Physical exam for work/school/camp (Renamed from Encounter for school health examination) Start:25-Feb-2019 Instruction Type:Patient Education Patient Instructions Indication:Physical exam for work/school/camp (Renamed from Encounter for school health examination) Start:25-Feb-2019 Instruction Type:Provider Instructions for Treatment How to access health informa tion online Indication:Non-smoker Start:23-Feb-2019 Instruction Type:Patient Education How to access health informa tion online - Detail Indication:Non-smoker Start:23-Feb-2019 Instruction Type:Patient Education Patient Instructions Indication:Non-smoker Start:23-Feb-2019 Instruction Type:Provider Instructions for Treatment How to access health informa tion online Indication:Non-smoker Start:29-Jan-2019 Instruction Type:Patient Education How to access health informa tion online - Detail Indication:Non-smoker Start:29-Jan-2019 Instruction Type:Patient Education Patient Instructions Indication:Non-smoker Start:29-Jan-2019 Instruction Type:Provider Instructions for Treatment How to access health informa tion online Indication:Non-smoker Start:24-Sep-2018 Instruction Type:Patient Education How to access health informa tion online - Detail Indication:Non-smoker Start:24-Sep-2018 Instruction Type:Patient Education Patient Instructions Indication:Non-smoker Start:24-Sep-2018 Instruction Type:Provider Instructions for Treatment How to access health informa tion online Indication:BMI 35.0-35.9,adult Start:18-Jun-2018 Instruction Type:Patient Education How to access health informa tion online - Detail Indication:BMI 35.0-35.9,adult Start:18-Jun-2018 Instruction Type:Patient Education Patient Instructions Indication:BMI 35.0-35.9,adult Start:18-Jun-2018 Instruction Type:Provider Instructions for Treatment How to access health informa tion online Indication:Non-smoker Start:28-Apr-2018 Instruction Type:Patient Education How to access health informa tion online - Detail Indication:Non-smoker Start:28-Apr-2018 Instruction Type:Patient Education Patient Instructions Indication:Non-smoker Start:28-Apr-2018 Instruction Type:Provider Instructions for Treatment How to access health informa tion online Indication:Non-smoker Start:16-Apr-2018 Instruction Type:Patient Education How to access health informa tion online - Detail Indication:Non-smoker Start:16-Apr-2018 Instruction Type:Patient Education Patient Instructions Indication:Back pain, lumbosacral Start:16-Apr-2018 Instruction Type:Provider Instructions for Treatment How to access health informa tion online Indication:BMI 35.0-35.9,adult Start:26-Feb-2018 Instruction Type:Patient Education How to access health informa tion online - Detail Indication:BMI 35.0-35.9,adult Start:26-Feb-2018 Instruction Type:Patient Education Patient Instructions Indication:BMI 35.0-35.9,adult Start:26-Feb-2018 Instruction Type:Provider Instructions for Treatment How to access health informa tion online Indication:Nonsmoker Start:27-Feb-2017 Instruction Type:Patient Education How to access health informa tion online - Detail Indication:Nonsmoker Start:27-Feb-2017 Instruction Type:Patient Education Patient Instructions Indication:Nonsmoker Start:27-Feb-2017 Instruction Type:Provider Instructions for Treatment How to access health informa tion online Indication:Nonsmoker Start:06-Sep-2016 Instruction Type:Patient Education How to access health informa tion online - Detail Indication:Nonsmoker Start:06-Sep-2016 Instruction Type:Patient Education Patient Instructions Indication:Nonsmoker Start:06-Sep-2016 Instruction Type:Provider Instructions for Treatment How to access health informa tion online Indication:Neoplasm of uncertain behavior of skin Start:08-May-2016 Instruction Type:Patient Education How to access health informa tion online - Detail Indication:Neoplasm of uncertain behavior of skin Start:08-May-2016 Instruction Type:Patient Education Patient Instructions Indication:Neoplasm of uncertain behavior of skin Start:08-May-2016 Instruction Type:Provider Instructions for Treatment How to access health informa tion online Indication:BMI 38.0-38.9,adult Start:23-Apr-2016 Instruction Type:Patient Education How to access health informa tion online - Detail Indication:BMI 38.0-38.9,adult Start:23-Apr-2016 Instruction Type:Patient Education Patient Instructions Indication:BMI 38.0-38.9,adult Start:23-Apr-2016 Instruction Type:Provider Instructions for Treatment How to access health informa tion online Indication:Annual physical exam Start:17-Feb-2014 Instruction Type:Patient Education How to access health informa tion online - Detail Indication:Annual physical exam Start:17-Feb-2014 Instruction Type:Patient Education How to access health informa tion online Indication:Benign essential hypertension Start:02-Dec-2013 Instruction Type:Patient Education How to access health informa tion online - Detail Indication:Benign essential hypertension Start:02-Dec-2013 Instruction Type:Patient Education Patient Instructions Indication:Benign essential hypertension Start:02-Dec-2013 Instruction Type:Provider Instructions for Treatment Patient Instructions Indication:Benign essential hypertension Start:23-Sep-2012 Instruction Type:Provider Instructions for Treatment Patient Instructions Indication:Benign essential hypertension Start:13-Feb-2012 Instruction Type:Provider Instructions for Treatment [facility] Work Phone: Instructions* Name Dates Details Patient Instructions Indication:Non-smoker Start:26-Mar-2023 Instruction Type:Provider Instructions for Treatment How to Access Health Informa tion Online using Patient Portal and [employer] Indication:Non-smoker Start:26-Mar-2023 Instruction Type:Patient Education Patient Instructions Indication:BMI 34.0-34.9,adult Start:18-Sep-2022 Instruction Type:Provider Instructions for Treatment How to Access Health Informa tion Online using Patient Portal and [employer] Indication:BMI 34.0-34.9,adult Start:18-Sep-2022 Instruction Type:Patient Education Patient Instructions Indication:BMI 34.0-34.9,adult Start:02-Sep-2022 Instruction Type:Provider Instructions for Treatment How to Access Health Informa tion Online using Patient Portal and [employer] Indication:BMI 34.0-34.9,adult Start:02-Sep-2022 Instruction Type:Patient Education Patient Instructions Indication:BMI 34.0-34.9,adult Start:26-Aug-2022 Instruction Type:Provider Instructions for Treatment How to Access Health Informa tion Online using Patient Portal and [employer] Indication:BMI 34.0-34.9,adult Start:26-Aug-2022 Instruction Type:Patient Education Patient Instructions Indication:BMI 34.0-34.9,adult Start:21-Aug-2022 Instruction Type:Provider Instructions for Treatment How to Access Health Informa tion Online using Patient Portal and [employer] Indication:BMI 34.0-34.9,adult Start:21-Aug-2022 Instruction Type:Patient Education Patient Instructions Indication:Non-smoker Start:12-Jul-2022 Instruction Type:Provider Instructions for Treatment How to Access Health Informa tion Online using Patient Portal and [employer] Indication:Non-smoker Start:12-Jul-2022 Instruction Type:Patient Education Patient Instructions Indication:Non-smoker Start:11-Apr-2022 Instruction Type:Provider Instructions for Treatment How to Access Health Informa tion Online using Patient Portal and [employer] Indication:Non-smoker Start:11-Apr-2022 Instruction Type:Patient Education How to Access Health Informa tion Online using Patient Portal and [employer] Indication:Non-smoker Start:28-Feb-2022 Instruction Type:Patient Education Patient Instructions Indication:Non-smoker Start:28-Feb-2022 Instruction Type:Provider Instructions for Treatment Patient Instructions Indication:Non-smoker Start:28-Sep-2021 Instruction Type:Provider Instructions for Treatment How to Access Health Informa tion Online using Patient Portal and [employer] Indication:Non-smoker Start:28-Sep-2021 Instruction Type:Patient Education Patient Instructions Indication:BMI 33.0-33.9,adult Start:08-Feb-2021 Instruction Type:Provider Instructions for Treatment How to Access Health Informa tion Online using Patient Portal and [employer] Indication:BMI 33.0-33.9,adult Start:08-Feb-2021 Instruction Type:Patient Education Patient Instructions Indication:Left hip pain Start:11-Sep-2020 Instruction Type:Provider Instructions for Treatment How to Access Health Informa tion Online using Patient Portal and [employer] Indication:Left hip pain Start:11-Sep-2020 Instruction Type:Patient Education How to access health informa tion online Indication:Non-smoker Start:23-Feb-2020 Instruction Type:Patient Education How to access health informa tion online - Detail Indication:Non-smoker Start:23-Feb-2020 Instruction Type:Patient Education Patient Instructions Indication:Non-smoker Start:23-Feb-2020 Instruction Type:Provider Instructions for Treatment How to access health informa tion online Indication:Non-smoker Start:17-Sep-2019 Instruction Type:Patient Education How to access health informa tion online - Detail Indication:Non-smoker Start:17-Sep-2019 Instruction Type:Patient Education Patient Instructions Indication:Non-smoker Start:17-Sep-2019 Instruction Type:Provider Instructions for Treatment How to access health informa tion online Indication:BMI 35.0-35.9,adult Start:23-Jun-2019 Instruction Type:Patient Education How to access health informa tion online - Detail Indication:BMI 35.0-35.9,adult Start:23-Jun-2019 Instruction Type:Patient Education Patient Instructions Indication:BMI 35.0-35.9,adult Start:23-Jun-2019 Instruction Type:Provider Instructions for Treatment How to access health informa tion online Indication:Non-smoker Start:09-Mar-2019 Instruction Type:Patient Education How to access health informa tion online - Detail Indication:Non-smoker Start:09-Mar-2019 Instruction Type:Patient Education Patient Instructions Indication:Non-smoker Start:09-Mar-2019 Instruction Type:Provider Instructions for Treatment How to access health informa tion online Indication:Physical exam for work/school/camp (Renamed from Encounter for school health examination) Start:25-Feb-2019 Instruction Type:Patient Education How to access health informa tion online - Detail Indication:Physical exam for work/school/camp (Renamed from Encounter for school health examination) Start:25-Feb-2019 Instruction Type:Patient Education Patient Instructions Indication:Physical exam for work/school/camp (Renamed from Encounter for school health examination) Start:25-Feb-2019 Instruction Type:Provider Instructions for Treatment How to access health informa tion online Indication:Non-smoker Start:23-Feb-2019 Instruction Type:Patient Education How to access health informa tion online - Detail Indication:Non-smoker Start:23-Feb-2019 Instruction Type:Patient Education Patient Instructions Indication:Non-smoker Start:23-Feb-2019 Instruction Type:Provider Instructions for Treatment How to access health informa tion online Indication:Non-smoker Start:29-Jan-2019 Instruction Type:Patient Education How to access health informa tion online - Detail Indication:Non-smoker Start:29-Jan-2019 Instruction Type:Patient Education Patient Instructions Indication:Non-smoker Start:29-Jan-2019 Instruction Type:Provider Instructions for Treatment How to access health informa tion online Indication:Non-smoker Start:24-Sep-2018 Instruction Type:Patient Education How to access health informa tion online - Detail Indication:Non-smoker Start:24-Sep-2018 Instruction Type:Patient Education Patient Instructions Indication:Non-smoker Start:24-Sep-2018 Instruction Type:Provider Instructions for Treatment How to access health informa tion online Indication:BMI 35.0-35.9,adult Start:18-Jun-2018 Instruction Type:Patient Education How to access health informa tion online - Detail Indication:BMI 35.0-35.9,adult Start:18-Jun-2018 Instruction Type:Patient Education Patient Instructions Indication:BMI 35.0-35.9,adult Start:18-Jun-2018 Instruction Type:Provider Instructions for Treatment How to access health informa tion online Indication:Non-smoker Start:28-Apr-2018 Instruction Type:Patient Education How to access health informa tion online - Detail Indication:Non-smoker Start:28-Apr-2018 Instruction Type:Patient Education Patient Instructions Indication:Non-smoker Start:28-Apr-2018 Instruction Type:Provider Instructions for Treatment How to access health informa tion online Indication:Non-smoker Start:16-Apr-2018 Instruction Type:Patient Education How to access health informa tion online - Detail Indication:Non-smoker Start:16-Apr-2018 Instruction Type:Patient Education Patient Instructions Indication:Back pain, lumbosacral Start:16-Apr-2018 Instruction Type:Provider Instructions for Treatment How to access health informa tion online Indication:BMI 35.0-35.9,adult Start:26-Feb-2018 Instruction Type:Patient Education How to access health informa tion online - Detail Indication:BMI 35.0-35.9,adult Start:26-Feb-2018 Instruction Type:Patient Education Patient Instructions Indication:BMI 35.0-35.9,adult Start:26-Feb-2018 Instruction Type:Provider Instructions for Treatment How to access health informa tion online Indication:Nonsmoker Start:27-Feb-2017 Instruction Type:Patient Education How to access health informa tion online - Detail Indication:Nonsmoker Start:27-Feb-2017 Instruction Type:Patient Education Patient Instructions Indication:Nonsmoker Start:27-Feb-2017 Instruction Type:Provider Instructions for Treatment How to access health informa tion online Indication:Nonsmoker Start:06-Sep-2016 Instruction Type:Patient Education How to access health informa tion online - Detail Indication:Nonsmoker Start:06-Sep-2016 Instruction Type:Patient Education Patient Instructions Indication:Nonsmoker Start:06-Sep-2016 Instruction Type:Provider Instructions for Treatment How to access health informa tion online Indication:Neoplasm of uncertain behavior of skin Start:08-May-2016 Instruction Type:Patient Education How to access health informa tion online - Detail Indication:Neoplasm of uncertain behavior of skin Start:08-May-2016 Instruction Type:Patient Education Patient Instructions Indication:Neoplasm of uncertain behavior of skin Start:08-May-2016 Instruction Type:Provider Instructions for Treatment How to access health informa tion online Indication:BMI 38.0-38.9,adult Start:23-Apr-2016 Instruction Type:Patient Education How to access health informa tion online - Detail Indication:BMI 38.0-38.9,adult Start:23-Apr-2016 Instruction Type:Patient Education Patient Instructions Indication:BMI 38.0-38.9,adult Start:23-Apr-2016 Instruction Type:Provider Instructions for Treatment How to access health informa tion online Indication:Annual physical exam Start:17-Feb-2014 Instruction Type:Patient Education How to access health informa tion online - Detail Indication:Annual physical exam Start:17-Feb-2014 Instruction Type:Patient Education How to access health informa tion online Indication:Benign essential hypertension Start:02-Dec-2013 Instruction Type:Patient Education How to access health informa tion online - Detail Indication:Benign essential hypertension Start:02-Dec-2013 Instruction Type:Patient Education Patient Instructions Indication:Benign essential hypertension Start:02-Dec-2013 Instruction Type:Provider Instructions for Treatment Patient Instructions Indication:Benign essential hypertension Start:23-Sep-2012 Instruction Type:Provider Instructions for Treatment Patient Instructions Indication:Benign essential hypertension Start:13-Feb-2012 Instruction Type:Provider Instructions for Treatment [facility]; [facility] Work Phone: progress note No data available for this section [facility] Reason for referral (narrative)No reason for referral information availableW[facility] Work [facility]: Instructions Name Dates Details Non-smoker : How to access h ealth information online Indication:Non-smoker Non-smoker : How to access h ealth information online - Detail Indication:Non-smoker Back pain, lumbosacral : Pat ient Instructions Indication:Back pain, lumbosacral BMI 35.0-35.9,adult : How to access health information online Indication:BMI 35.0-35.9,adult BMI 35.0-35.9,adult : How to access health information online - Detail Indication:BMI 35.0-35.9,adult BMI 35.0-35.9,adult : Patien t Instructions Indication:BMI 35.0-35.9,adult Nonsmoker : How to access he alth information online Indication:Nonsmoker Nonsmoker : How to access he alth information online - Detail Indication:Nonsmoker Nonsmoker : Patient Instruct ions Indication:Nonsmoker 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 : How to access health information online Indication: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 : How to access health information online - Detail Indication: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 : Patient Instructions Indication:Neoplasm of uncertain behavior of skin BMI 38.0-38.9,adult : How to access health information online Indication:BMI 38.0-38.9,adult BMI 38.0-38.9,adult : How to access health information online - Detail Indication:BMI 38.0-38.9,adult BMI 38.0-38.9,adult : Patien t Instructions Indication:BMI 38.0-38.9,adult Annual physical exam : How t o access health information online Indication:Annual physical exam Annual physical exam : How t o access health information online - Detail Indication:Annual physical exam Benign essential hypertensio n : How to access health information online Indication:Benign essential hypertension Benign essential hypertensio n : How to access health information online - Detail Indication:Benign essential hypertension Benign essential hypertensio n : Patient Instructions Indication:Benign essential hypertension Name Dates Details BMI 35.0-35.9,adult : How to access health information online Indication:BMI 35.0-35.9,adult BMI 35.0-35.9,adult : How to access health information online - Detail Indication:BMI 35.0-35.9,adult BMI 35.0-35.9,adult : Patien t Instructions Indication:BMI 35.0-35.9,adult Non-smoker : How to access h ealth information online Indication:Non-smoker Non-smoker : How to access h ealth information online - Detail Indication:Non-smoker Non-smoker : Patient Instruc tions Indication:Non-smoker Back pain, lumbosacral : Pat ient Instructions Indication:Back pain, lumbosacral Nonsmoker : How to access he alth information online Indication:Nonsmoker Nonsmoker : How to access he alth information online - Detail Indication:Nonsmoker Nonsmoker : Patient Instruct ions Indication:Nonsmoker 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 : How to access health information online Indication: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 : How to access health information online - Detail Indication: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 : Patient Instructions Indication:Neoplasm of uncertain behavior of skin BMI 38.0-38.9,adult : How to access health information online Indication:BMI 38.0-38.9,adult BMI 38.0-38.9,adult : How to access health information online - Detail Indication:BMI 38.0-38.9,adult BMI 38.0-38.9,adult : Patien t Instructions Indication:BMI 38.0-38.9,adult Annual physical exam : How t o access health information online Indication:Annual physical exam Annual physical exam : How t o access health information online - Detail Indication:Annual physical exam Benign essential hypertensio n : How to access health information online Indication:Benign essential hypertension Benign essential hypertensio n : How to access health information online - Detail Indication:Benign essential hypertension Benign essential hypertensio n : Patient Instructions Indication:Benign essential hypertension Name Dates Details BMI 35.0-35.9,adult : How to access health information online Indication:BMI 35.0-35.9,adult BMI 35.0-35.9,adult : How to access health information online - Detail Indication:BMI 35.0-35.9,adult BMI 35.0-35.9,adult : Patien t Instructions Indication:BMI 35.0-35.9,adult Non-smoker : How to access h ealth information online Indication:Non-smoker Non-smoker : How to access h ealth information online - Detail Indication:Non-smoker Non-smoker : Patient Instruc tions Indication:Non-smoker Back pain, lumbosacral : Pat ient Instructions Indication:Back pain, lumbosacral Nonsmoker : How to access he alth information online Indication:Nonsmoker Nonsmoker : How to access he alth information online - Detail Indication:Nonsmoker Nonsmoker : Patient Instruct ions Indication:Nonsmoker 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 : How to access health information online Indication: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 : How to access health information online - Detail Indication: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 : Patient Instructions Indication:Neoplasm of uncertain behavior of skin BMI 38.0-38.9,adult : How to access health information online Indication:BMI 38.0-38.9,adult BMI 38.0-38.9,adult : How to access health information online - Detail Indication:BMI 38.0-38.9,adult BMI 38.0-38.9,adult : Patien t Instructions Indication:BMI 38.0-38.9,adult Annual physical exam : How t o access health information online Indication:Annual physical exam Annual physical exam : How t o access health information online - Detail Indication:Annual physical exam Benign essential hypertensio n : How to access health information online Indication:Benign essential hypertension Benign essential hypertensio n : How to access health information online - Detail Indication:Benign essential hypertension Benign essential hypertensio n : Patient Instructions Indication:Benign essential hypertension Name Dates Details How to access health informa tion online Indication:Non-smoker Start:24-Sep-2018 Instruction Type:Patient Education How to access health informa tion online - Detail Indication:Non-smoker Start:24-Sep-2018 Instruction Type:Patient Education Patient Instructions Indication:Non-smoker Start:24-Sep-2018 Instruction Type:Provider Instructions for Treatment How to access health informa tion online Indication:BMI 35.0-35.9,adult Start:18-Jun-2018 Instruction Type:Patient Education How to access health informa tion online - Detail Indication:BMI 35.0-35.9,adult Start:18-Jun-2018 Instruction Type:Patient Education Patient Instructions Indication:BMI 35.0-35.9,adult Start:18-Jun-2018 Instruction Type:Provider Instructions for Treatment How to access health informa tion online Indication:Non-smoker Start:28-Apr-2018 Instruction Type:Patient Education How to access health informa tion online - Detail Indication:Non-smoker Start:28-Apr-2018 Instruction Type:Patient Education Patient Instructions Indication:Non-smoker Start:28-Apr-2018 Instruction Type:Provider Instructions for Treatment How to access health informa tion online Indication:Non-smoker Start:16-Apr-2018 Instruction Type:Patient Education How to access health informa tion online - Detail Indication:Non-smoker Start:16-Apr-2018 Instruction Type:Patient Education Patient Instructions Indication:Back pain, lumbosacral Start:16-Apr-2018 Instruction Type:Provider Instructions for Treatment How to access health informa tion online Indication:BMI 35.0-35.9,adult Start:26-Feb-2018 Instruction Type:Patient Education How to access health informa tion online - Detail Indication:BMI 35.0-35.9,adult Start:26-Feb-2018 Instruction Type:Patient Education Patient Instructions Indication:BMI 35.0-35.9,adult Start:26-Feb-2018 Instruction Type:Provider Instructions for Treatment How to access health informa tion online Indication:Nonsmoker Start:27-Feb-2017 Instruction Type:Patient Education How to access health informa tion online - Detail Indication:Nonsmoker Start:27-Feb-2017 Instruction Type:Patient Education Patient Instructions Indication:Nonsmoker Start:27-Feb-2017 Instruction Type:Provider Instructions for Treatment How to access health informa tion online Indication:Nonsmoker Start:06-Sep-2016 Instruction Type:Patient Education How to access health informa tion online - Detail Indication:Nonsmoker Start:06-Sep-2016 Instruction Type:Patient Education Patient Instructions Indication:Nonsmoker Start:06-Sep-2016 Instruction Type:Provider Instructions for Treatment How to access health informa tion online Indication:Neoplasm of uncertain behavior of skin Start:08-May-2016 Instruction Type:Patient Education How to access health informa tion online - Detail Indication:Neoplasm of uncertain behavior of skin Start:08-May-2016 Instruction Type:Patient Education Patient Instructions Indication:Neoplasm of uncertain behavior of skin Start:08-May-2016 Instruction Type:Provider Instructions for Treatment How to access health informa tion online Indication:BMI 38.0-38.9,adult Start:23-Apr-2016 Instruction Type:Patient Education How to access health informa tion online - Detail Indication:BMI 38.0-38.9,adult Start:23-Apr-2016 Instruction Type:Patient Education Patient Instructions Indication:BMI 38.0-38.9,adult Start:23-Apr-2016 Instruction Type:Provider Instructions for Treatment How to access health informa tion online Indication:Annual physical exam Start:17-Feb-2014 Instruction Type:Patient Education How to access health informa tion online - Detail Indication:Annual physical exam Start:17-Feb-2014 Instruction Type:Patient Education How to access health informa tion online Indication:Benign essential hypertension Start:02-Dec-2013 Instruction Type:Patient Education How to access health informa tion online - Detail Indication:Benign essential hypertension Start:02-Dec-2013 Instruction Type:Patient Education Patient Instructions Indication:Benign essential hypertension Start:02-Dec-2013 Instruction Type:Provider Instructions for Treatment Patient Instructions Indication:Benign essential hypertension Start:23-Sep-2012 Instruction Type:Provider Instructions for Treatment Patient Instructions Indication:Benign essential hypertension Start:13-Feb-2012 Instruction Type:Provider Instructions for Treatment Name Dates Details How to access health informa tion online Indication:Non-smoker Start:24-Sep-2018 Instruction Type:Patient Education How to access health informa tion online - Detail Indication:Non-smoker Start:24-Sep-2018 Instruction Type:Patient Education Patient Instructions Indication:Non-smoker Start:24-Sep-2018 Instruction Type:Provider Instructions for Treatment How to access health informa tion online Indication:BMI 35.0-35.9,adult Start:18-Jun-2018 Instruction Type:Patient Education How to access health informa tion online - Detail Indication:BMI 35.0-35.9,adult Start:18-Jun-2018 Instruction Type:Patient Education Patient Instructions Indication:BMI 35.0-35.9,adult Start:18-Jun-2018 Instruction Type:Provider Instructions for Treatment How to access health informa tion online Indication:Non-smoker Start:28-Apr-2018 Instruction Type:Patient Education How to access health informa tion online - Detail Indication:Non-smoker Start:28-Apr-2018 Instruction Type:Patient Education Patient Instructions Indication:Non-smoker Start:28-Apr-2018 Instruction Type:Provider Instructions for Treatment How to access health informa tion online Indication:Non-smoker Start:16-Apr-2018 Instruction Type:Patient Education How to access health informa tion online - Detail Indication:Non-smoker Start:16-Apr-2018 Instruction Type:Patient Education Patient Instructions Indication:Back pain, lumbosacral Start:16-Apr-2018 Instruction Type:Provider Instructions for Treatment How to access health informa tion online Indication:BMI 35.0-35.9,adult Start:26-Feb-2018 Instruction Type:Patient Education How to access health informa tion online - Detail Indication:BMI 35.0-35.9,adult Start:26-Feb-2018 Instruction Type:Patient Education Patient Instructions Indication:BMI 35.0-35.9,adult Start:26-Feb-2018 Instruction Type:Provider Instructions for Treatment How to access health informa tion online Indication:Nonsmoker Start:27-Feb-2017 Instruction Type:Patient Education How to access health informa tion online - Detail Indication:Nonsmoker Start:27-Feb-2017 Instruction Type:Patient Education Patient Instructions Indication:Nonsmoker Start:27-Feb-2017 Instruction Type:Provider Instructions for Treatment How to access health informa tion online Indication:Nonsmoker Start:06-Sep-2016 Instruction Type:Patient Education How to access health informa tion online - Detail Indication:Nonsmoker Start:06-Sep-2016 Instruction Type:Patient Education Patient Instructions Indication:Nonsmoker Start:06-Sep-2016 Instruction Type:Provider Instructions for Treatment How to access health informa tion online Indication:Neoplasm of uncertain behavior of skin Start:08-May-2016 Instruction Type:Patient Education How to access health informa tion online - Detail Indication:Neoplasm of uncertain behavior of skin Start:08-May-2016 Instruction Type:Patient Education Patient Instructions Indication:Neoplasm of uncertain behavior of skin Start:08-May-2016 Instruction Type:Provider Instructions for Treatment How to access health informa tion online Indication:BMI 38.0-38.9,adult Start:23-Apr-2016 Instruction Type:Patient Education How to access health informa tion online - Detail Indication:BMI 38.0-38.9,adult Start:23-Apr-2016 Instruction Type:Patient Education Patient Instructions Indication:BMI 38.0-38.9,adult Start:23-Apr-2016 Instruction Type:Provider Instructions for Treatment How to access health informa tion online Indication:Annual physical exam Start:17-Feb-2014 Instruction Type:Patient Education How to access health informa tion online - Detail Indication:Annual physical exam Start:17-Feb-2014 Instruction Type:Patient Education How to access health informa tion online Indication:Benign essential hypertension Start:02-Dec-2013 Instruction Type:Patient Education How to access health informa tion online - Detail Indication:Benign essential hypertension Start:02-Dec-2013 Instruction Type:Patient Education Patient Instructions Indication:Benign essential hypertension Start:02-Dec-2013 Instruction Type:Provider Instructions for Treatment Patient Instructions Indication:Benign essential hypertension Start:23-Sep-2012 Instruction Type:Provider Instructions for Treatment Patient Instructions Indication:Benign essential hypertension Start:13-Feb-2012 Instruction Type:Provider Instructions for Treatment Name Dates Details How to access health informa tion online Indication:Non-smoker Start:29-Jan-2019 Instruction Type:Patient Education How to access health informa tion online - Detail Indication:Non-smoker Start:29-Jan-2019 Instruction Type:Patient Education Patient Instructions Indication:Non-smoker Start:29-Jan-2019 Instruction Type:Provider Instructions for Treatment How to access health informa tion online Indication:Non-smoker Start:24-Sep-2018 Instruction Type:Patient Education How to access health informa tion online - Detail Indication:Non-smoker Start:24-Sep-2018 Instruction Type:Patient Education Patient Instructions Indication:Non-smoker Start:24-Sep-2018 Instruction Type:Provider Instructions for Treatment How to access health informa tion online Indication:BMI 35.0-35.9,adult Start:18-Jun-2018 Instruction Type:Patient Education How to access health informa tion online - Detail Indication:BMI 35.0-35.9,adult Start:18-Jun-2018 Instruction Type:Patient Education Patient Instructions Indication:BMI 35.0-35.9,adult Start:18-Jun-2018 Instruction Type:Provider Instructions for Treatment How to access health informa tion online Indication:Non-smoker Start:28-Apr-2018 Instruction Type:Patient Education How to access health informa tion online - Detail Indication:Non-smoker Start:28-Apr-2018 Instruction Type:Patient Education Patient Instructions Indication:Non-smoker Start:28-Apr-2018 Instruction Type:Provider Instructions for Treatment How to access health informa tion online Indication:Non-smoker Start:16-Apr-2018 Instruction Type:Patient Education How to access health informa tion online - Detail Indication:Non-smoker Start:16-Apr-2018 Instruction Type:Patient Education Patient Instructions Indication:Back pain, lumbosacral Start:16-Apr-2018 Instruction Type:Provider Instructions for Treatment How to access health informa tion online Indication:BMI 35.0-35.9,adult Start:26-Feb-2018 Instruction Type:Patient Education How to access health informa tion online - Detail Indication:BMI 35.0-35.9,adult Start:26-Feb-2018 Instruction Type:Patient Education Patient Instructions Indication:BMI 35.0-35.9,adult Start:26-Feb-2018 Instruction Type:Provider Instructions for Treatment How to access health informa tion online Indication:Nonsmoker Start:27-Feb-2017 Instruction Type:Patient Education How to access health informa tion online - Detail Indication:Nonsmoker Start:27-Feb-2017 Instruction Type:Patient Education Patient Instructions Indication:Nonsmoker Start:27-Feb-2017 Instruction Type:Provider Instructions for Treatment How to access health informa tion online Indication:Nonsmoker Start:06-Sep-2016 Instruction Type:Patient Education How to access health informa tion online - Detail Indication:Nonsmoker Start:06-Sep-2016 Instruction Type:Patient Education Patient Instructions Indication:Nonsmoker Start:06-Sep-2016 Instruction Type:Provider Instructions for Treatment How to access health informa tion online Indication:Neoplasm of uncertain behavior of skin Start:08-May-2016 Instruction Type:Patient Education How to access health informa tion online - Detail Indication:Neoplasm of uncertain behavior of skin Start:08-May-2016 Instruction Type:Patient Education Patient Instructions Indication:Neoplasm of uncertain behavior of skin Start:08-May-2016 Instruction Type:Provider Instructions for Treatment How to access health informa tion online Indication:BMI 38.0-38.9,adult Start:23-Apr-2016 Instruction Type:Patient Education How to access health informa tion online - Detail Indication:BMI 38.0-38.9,adult Start:23-Apr-2016 Instruction Type:Patient Education Patient Instructions Indication:BMI 38.0-38.9,adult Start:23-Apr-2016 Instruction Type:Provider Instructions for Treatment How to access health informa tion online Indication:Annual physical exam Start:17-Feb-2014 Instruction Type:Patient Education How to access health informa tion online - Detail Indication:Annual physical exam Start:17-Feb-2014 Instruction Type:Patient Education How to access health informa tion online Indication:Benign essential hypertension Start:02-Dec-2013 Instruction Type:Patient Education How to access health informa tion online - Detail Indication:Benign essential hypertension Start:02-Dec-2013 Instruction Type:Patient Education Patient Instructions Indication:Benign essential hypertension Start:02-Dec-2013 Instruction Type:Provider Instructions for Treatment Patient Instructions Indication:Benign essential hypertension Start:23-Sep-2012 Instruction Type:Provider Instructions for Treatment Patient Instructions Indication:Benign essential hypertension Start:13-Feb-2012 Instruction Type:Provider Instructions for Treatment Name Dates Details How to access health informa tion online Indication:Non-smoker Start:29-Jan-2019 Instruction Type:Patient Education How to access health informa tion online - Detail Indication:Non-smoker Start:29-Jan-2019 Instruction Type:Patient Education Patient Instructions Indication:Non-smoker Start:29-Jan-2019 Instruction Type:Provider Instructions for Treatment How to access health informa tion online Indication:Non-smoker Start:24-Sep-2018 Instruction Type:Patient Education How to access health informa tion online - Detail Indication:Non-smoker Start:24-Sep-2018 Instruction Type:Patient Education Patient Instructions Indication:Non-smoker Start:24-Sep-2018 Instruction Type:Provider Instructions for Treatment How to access health informa tion online Indication:BMI 35.0-35.9,adult Start:18-Jun-2018 Instruction Type:Patient Education How to access health informa tion online - Detail Indication:BMI 35.0-35.9,adult Start:18-Jun-2018 Instruction Type:Patient Education Patient Instructions Indication:BMI 35.0-35.9,adult Start:18-Jun-2018 Instruction Type:Provider Instructions for Treatment How to access health informa tion online Indication:Non-smoker Start:28-Apr-2018 Instruction Type:Patient Education How to access health informa tion online - Detail Indication:Non-smoker Start:28-Apr-2018 Instruction Type:Patient Education Patient Instructions Indication:Non-smoker Start:28-Apr-2018 Instruction Type:Provider Instructions for Treatment How to access health informa tion online Indication:Non-smoker Start:16-Apr-2018 Instruction Type:Patient Education How to access health informa tion online - Detail Indication:Non-smoker Start:16-Apr-2018 Instruction Type:Patient Education Patient Instructions Indication:Back pain, lumbosacral Start:16-Apr-2018 Instruction Type:Provider Instructions for Treatment How to access health informa tion online Indication:BMI 35.0-35.9,adult Start:26-Feb-2018 Instruction Type:Patient Education How to access health informa tion online - Detail Indication:BMI 35.0-35.9,adult Start:26-Feb-2018 Instruction Type:Patient Education Patient Instructions Indication:BMI 35.0-35.9,adult Start:26-Feb-2018 Instruction Type:Provider Instructions for Treatment How to access health informa tion online Indication:Nonsmoker Start:27-Feb-2017 Instruction Type:Patient Education How to access health informa tion online - Detail Indication:Nonsmoker Start:27-Feb-2017 Instruction Type:Patient Education Patient Instructions Indication:Nonsmoker Start:27-Feb-2017 Instruction Type:Provider Instructions for Treatment How to access health informa tion online Indication:Nonsmoker Start:06-Sep-2016 Instruction Type:Patient Education How to access health informa tion online - Detail Indication:Nonsmoker Start:06-Sep-2016 Instruction Type:Patient Education Patient Instructions Indication:Nonsmoker Start:06-Sep-2016 Instruction Type:Provider Instructions for Treatment How to access health informa tion online Indication:Neoplasm of uncertain behavior of skin Start:08-May-2016 Instruction Type:Patient Education How to access health informa tion online - Detail Indication:Neoplasm of uncertain behavior of skin Start:08-May-2016 Instruction Type:Patient Education Patient Instructions Indication:Neoplasm of uncertain behavior of skin Start:08-May-2016 Instruction Type:Provider Instructions for Treatment How to access health informa tion online Indication:BMI 38.0-38.9,adult Start:23-Apr-2016 Instruction Type:Patient Education How to access health informa tion online - Detail Indication:BMI 38.0-38.9,adult Start:23-Apr-2016 Instruction Type:Patient Education Patient Instructions Indication:BMI 38.0-38.9,adult Start:23-Apr-2016 Instruction Type:Provider Instructions for Treatment How to access health informa tion online Indication:Annual physical exam Start:17-Feb-2014 Instruction Type:Patient Education How to access health informa tion online - Detail Indication:Annual physical exam Start:17-Feb-2014 Instruction Type:Patient Education How to access health informa tion online Indication:Benign essential hypertension Start:02-Dec-2013 Instruction Type:Patient Education How to access health informa tion online - Detail Indication:Benign essential hypertension Start:02-Dec-2013 Instruction Type:Patient Education Patient Instructions Indication:Benign essential hypertension Start:02-Dec-2013 Instruction Type:Provider Instructions for Treatment Patient Instructions Indication:Benign essential hypertension Start:23-Sep-2012 Instruction Type:Provider Instructions for Treatment Patient Instructions Indication:Benign essential hypertension Start:13-Feb-2012 Instruction Type:Provider Instructions for Treatment Name Dates Details How to access health informa tion online Indication:Physical exam for work/school/camp (Renamed from Encounter for school health examination) Start:25-Feb-2019 Instruction Type:Patient Education How to access health informa tion online - Detail Indication:Physical exam for work/school/camp (Renamed from Encounter for school health examination) Start:25-Feb-2019 Instruction Type:Patient Education Patient Instructions Indication:Physical exam for work/school/camp (Renamed from Encounter for school health examination) Start:25-Feb-2019 Instruction Type:Provider Instructions for Treatment How to access health informa tion online Indication:Non-smoker Start:23-Feb-2019 Instruction Type:Patient Education How to access health informa tion online - Detail Indication:Non-smoker Start:23-Feb-2019 Instruction Type:Patient Education Patient Instructions Indication:Non-smoker Start:23-Feb-2019 Instruction Type:Provider Instructions for Treatment How to access health informa tion online Indication:Non-smoker Start:29-Jan-2019 Instruction Type:Patient Education How to access health informa tion online - Detail Indication:Non-smoker Start:29-Jan-2019 Instruction Type:Patient Education Patient Instructions Indication:Non-smoker Start:29-Jan-2019 Instruction Type:Provider Instructions for Treatment How to access health informa tion online Indication:Non-smoker Start:24-Sep-2018 Instruction Type:Patient Education How to access health informa tion online - Detail Indication:Non-smoker Start:24-Sep-2018 Instruction Type:Patient Education Patient Instructions Indication:Non-smoker Start:24-Sep-2018 Instruction Type:Provider Instructions for Treatment How to access health informa tion online Indication:BMI 35.0-35.9,adult Start:18-Jun-2018 Instruction Type:Patient Education How to access health informa tion online - Detail Indication:BMI 35.0-35.9,adult Start:18-Jun-2018 Instruction Type:Patient Education Patient Instructions Indication:BMI 35.0-35.9,adult Start:18-Jun-2018 Instruction Type:Provider Instructions for Treatment How to access health informa tion online Indication:Non-smoker Start:28-Apr-2018 Instruction Type:Patient Education How to access health informa tion online - Detail Indication:Non-smoker Start:28-Apr-2018 Instruction Type:Patient Education Patient Instructions Indication:Non-smoker Start:28-Apr-2018 Instruction Type:Provider Instructions for Treatment How to access health informa tion online Indication:Non-smoker Start:16-Apr-2018 Instruction Type:Patient Education How to access health informa tion online - Detail Indication:Non-smoker Start:16-Apr-2018 Instruction Type:Patient Education Patient Instructions Indication:Back pain, lumbosacral Start:16-Apr-2018 Instruction Type:Provider Instructions for Treatment How to access health informa tion online Indication:BMI 35.0-35.9,adult Start:26-Feb-2018 Instruction Type:Patient Education How to access health informa tion online - Detail Indication:BMI 35.0-35.9,adult Start:26-Feb-2018 Instruction Type:Patient Education Patient Instructions Indication:BMI 35.0-35.9,adult Start:26-Feb-2018 Instruction Type:Provider Instructions for Treatment How to access health informa tion online Indication:Nonsmoker Start:27-Feb-2017 Instruction Type:Patient Education How to access health informa tion online - Detail Indication:Nonsmoker Start:27-Feb-2017 Instruction Type:Patient Education Patient Instructions Indication:Nonsmoker Start:27-Feb-2017 Instruction Type:Provider Instructions for Treatment How to access health informa tion online Indication:Nonsmoker Start:06-Sep-2016 Instruction Type:Patient Education How to access health informa tion online - Detail Indication:Nonsmoker Start:06-Sep-2016 Instruction Type:Patient Education Patient Instructions Indication:Nonsmoker Start:06-Sep-2016 Instruction Type:Provider Instructions for Treatment How to access health informa tion online Indication:Neoplasm of uncertain behavior of skin Start:08-May-2016 Instruction Type:Patient Education How to access health informa tion online - Detail Indication:Neoplasm of uncertain behavior of skin Start:08-May-2016 Instruction Type:Patient Education Patient Instructions Indication:Neoplasm of uncertain behavior of skin Start:08-May-2016 Instruction Type:Provider Instructions for Treatment How to access health informa tion online Indication:BMI 38.0-38.9,adult Start:23-Apr-2016 Instruction Type:Patient Education How to access health informa tion online - Detail Indication:BMI 38.0-38.9,adult Start:23-Apr-2016 Instruction Type:Patient Education Patient Instructions Indication:BMI 38.0-38.9,adult Start:23-Apr-2016 Instruction Type:Provider Instructions for Treatment How to access health informa tion online Indication:Annual physical exam Start:17-Feb-2014 Instruction Type:Patient Education How to access health informa tion online - Detail Indication:Annual physical exam Start:17-Feb-2014 Instruction Type:Patient Education How to access health informa tion online Indication:Benign essential hypertension Start:02-Dec-2013 Instruction Type:Patient Education How to access health informa tion online - Detail Indication:Benign essential hypertension Start:02-Dec-2013 Instruction Type:Patient Education Patient Instructions Indication:Benign essential hypertension Start:02-Dec-2013 Instruction Type:Provider Instructions for Treatment Patient Instructions Indication:Benign essential hypertension Start:23-Sep-2012 Instruction Type:Provider Instructions for Treatment Patient Instructions Indication:Benign essential hypertension Start:13-Feb-2012 Instruction Type:Provider Instructions for Treatment Name Dates Details How to access health informa tion online Indication:Physical exam for work/school/camp (Renamed from Encounter for school health examination) Start:25-Feb-2019 Instruction Type:Patient Education How to access health informa tion online - Detail Indication:Physical exam for work/school/camp (Renamed from Encounter for school health examination) Start:25-Feb-2019 Instruction Type:Patient Education Patient Instructions Indication:Physical exam for work/school/camp (Renamed from Encounter for school health examination) Start:25-Feb-2019 Instruction Type:Provider Instructions for Treatment How to access health informa tion online Indication:Non-smoker Start:23-Feb-2019 Instruction Type:Patient Education How to access health informa tion online - Detail Indication:Non-smoker Start:23-Feb-2019 Instruction Type:Patient Education Patient Instructions Indication:Non-smoker Start:23-Feb-2019 Instruction Type:Provider Instructions for Treatment How to access health informa tion online Indication:Non-smoker Start:29-Jan-2019 Instruction Type:Patient Education How to access health informa tion online - Detail Indication:Non-smoker Start:29-Jan-2019 Instruction Type:Patient Education Patient Instructions Indication:Non-smoker Start:29-Jan-2019 Instruction Type:Provider Instructions for Treatment How to access health informa tion online Indication:Non-smoker Start:24-Sep-2018 Instruction Type:Patient Education How to access health informa tion online - Detail Indication:Non-smoker Start:24-Sep-2018 Instruction Type:Patient Education Patient Instructions Indication:Non-smoker Start:24-Sep-2018 Instruction Type:Provider Instructions for Treatment How to access health informa tion online Indication:BMI 35.0-35.9,adult Start:18-Jun-2018 Instruction Type:Patient Education How to access health informa tion online - Detail Indication:BMI 35.0-35.9,adult Start:18-Jun-2018 Instruction Type:Patient Education Patient Instructions Indication:BMI 35.0-35.9,adult Start:18-Jun-2018 Instruction Type:Provider Instructions for Treatment How to access health informa tion online Indication:Non-smoker Start:28-Apr-2018 Instruction Type:Patient Education How to access health informa tion online - Detail Indication:Non-smoker Start:28-Apr-2018 Instruction Type:Patient Education Patient Instructions Indication:Non-smoker Start:28-Apr-2018 Instruction Type:Provider Instructions for Treatment How to access health informa tion online Indication:Non-smoker Start:16-Apr-2018 Instruction Type:Patient Education How to access health informa tion online - Detail Indication:Non-smoker Start:16-Apr-2018 Instruction Type:Patient Education Patient Instructions Indication:Back pain, lumbosacral Start:16-Apr-2018 Instruction Type:Provider Instructions for Treatment How to access health informa tion online Indication:BMI 35.0-35.9,adult Start:26-Feb-2018 Instruction Type:Patient Education How to access health informa tion online - Detail Indication:BMI 35.0-35.9,adult Start:26-Feb-2018 Instruction Type:Patient Education Patient Instructions Indication:BMI 35.0-35.9,adult Start:26-Feb-2018 Instruction Type:Provider Instructions for Treatment How to access health informa tion online Indication:Nonsmoker Start:27-Feb-2017 Instruction Type:Patient Education How to access health informa tion online - Detail Indication:Nonsmoker Start:27-Feb-2017 Instruction Type:Patient Education Patient Instructions Indication:Nonsmoker Start:27-Feb-2017 Instruction Type:Provider Instructions for Treatment How to access health informa tion online Indication:Nonsmoker Start:06-Sep-2016 Instruction Type:Patient Education How to access health informa tion online - Detail Indication:Nonsmoker Start:06-Sep-2016 Instruction Type:Patient Education Patient Instructions Indication:Nonsmoker Start:06-Sep-2016 Instruction Type:Provider Instructions for Treatment How to access health informa tion online Indication:Neoplasm of uncertain behavior of skin Start:08-May-2016 Instruction Type:Patient Education How to access health informa tion online - Detail Indication:Neoplasm of uncertain behavior of skin Start:08-May-2016 Instruction Type:Patient Education Patient Instructions Indication:Neoplasm of uncertain behavior of skin Start:08-May-2016 Instruction Type:Provider Instructions for Treatment How to access health informa tion online Indication:BMI 38.0-38.9,adult Start:23-Apr-2016 Instruction Type:Patient Education How to access health informa tion online - Detail Indication:BMI 38.0-38.9,adult Start:23-Apr-2016 Instruction Type:Patient Education Patient Instructions Indication:BMI 38.0-38.9,adult Start:23-Apr-2016 Instruction Type:Provider Instructions for Treatment How to access health informa tion online Indication:Annual physical exam Start:17-Feb-2014 Instruction Type:Patient Education How to access health informa tion online - Detail Indication:Annual physical exam Start:17-Feb-2014 Instruction Type:Patient Education How to access health informa tion online Indication:Benign essential hypertension Start:02-Dec-2013 Instruction Type:Patient Education How to access health informa tion online - Detail Indication:Benign essential hypertension Start:02-Dec-2013 Instruction Type:Patient Education Patient Instructions Indication:Benign essential hypertension Start:02-Dec-2013 Instruction Type:Provider Instructions for Treatment Patient Instructions Indication:Benign essential hypertension Start:23-Sep-2012 Instruction Type:Provider Instructions for Treatment Patient Instructions Indication:Benign essential hypertension Start:13-Feb-2012 Instruction Type:Provider Instructions for Treatment Name Dates Details How to access health informa tion online Indication:Physical exam for work/school/camp (Renamed from Encounter for school health examination) Start:25-Feb-2019 Instruction Type:Patient Education How to access health informa tion online - Detail Indication:Physical exam for work/school/camp (Renamed from Encounter for school health examination) Start:25-Feb-2019 Instruction Type:Patient Education Patient Instructions Indication:Physical exam for work/school/camp (Renamed from Encounter for school health examination) Start:25-Feb-2019 Instruction Type:Provider Instructions for Treatment How to access health informa tion online Indication:Non-smoker Start:23-Feb-2019 Instruction Type:Patient Education How to access health informa tion online - Detail Indication:Non-smoker Start:23-Feb-2019 Instruction Type:Patient Education Patient Instructions Indication:Non-smoker Start:23-Feb-2019 Instruction Type:Provider Instructions for Treatment How to access health informa tion online Indication:Non-smoker Start:29-Jan-2019 Instruction Type:Patient Education How to access health informa tion online - Detail Indication:Non-smoker Start:29-Jan-2019 Instruction Type:Patient Education Patient Instructions Indication:Non-smoker Start:29-Jan-2019 Instruction Type:Provider Instructions for Treatment How to access health informa tion online Indication:Non-smoker Start:24-Sep-2018 Instruction Type:Patient Education How to access health informa tion online - Detail Indication:Non-smoker Start:24-Sep-2018 Instruction Type:Patient Education Patient Instructions Indication:Non-smoker Start:24-Sep-2018 Instruction Type:Provider Instructions for Treatment How to access health informa tion online Indication:BMI 35.0-35.9,adult Start:18-Jun-2018 Instruction Type:Patient Education How to access health informa tion online - Detail Indication:BMI 35.0-35.9,adult Start:18-Jun-2018 Instruction Type:Patient Education Patient Instructions Indication:BMI 35.0-35.9,adult Start:18-Jun-2018 Instruction Type:Provider Instructions for Treatment How to access health informa tion online Indication:Non-smoker Start:28-Apr-2018 Instruction Type:Patient Education How to access health informa tion online - Detail Indication:Non-smoker Start:28-Apr-2018 Instruction Type:Patient Education Patient Instructions Indication:Non-smoker Start:28-Apr-2018 Instruction Type:Provider Instructions for Treatment How to access health informa tion online Indication:Non-smoker Start:16-Apr-2018 Instruction Type:Patient Education How to access health informa tion online - Detail Indication:Non-smoker Start:16-Apr-2018 Instruction Type:Patient Education Patient Instructions Indication:Back pain, lumbosacral Start:16-Apr-2018 Instruction Type:Provider Instructions for Treatment How to access health informa tion online Indication:BMI 35.0-35.9,adult Start:26-Feb-2018 Instruction Type:Patient Education How to access health informa tion online - Detail Indication:BMI 35.0-35.9,adult Start:26-Feb-2018 Instruction Type:Patient Education Patient Instructions Indication:BMI 35.0-35.9,adult Start:26-Feb-2018 Instruction Type:Provider Instructions for Treatment How to access health informa tion online Indication:Nonsmoker Start:27-Feb-2017 Instruction Type:Patient Education How to access health informa tion online - Detail Indication:Nonsmoker Start:27-Feb-2017 Instruction Type:Patient Education Patient Instructions Indication:Nonsmoker Start:27-Feb-2017 Instruction Type:Provider Instructions for Treatment How to access health informa tion online Indication:Nonsmoker Start:06-Sep-2016 Instruction Type:Patient Education How to access health informa tion online - Detail Indication:Nonsmoker Start:06-Sep-2016 Instruction Type:Patient Education Patient Instructions Indication:Nonsmoker Start:06-Sep-2016 Instruction Type:Provider Instructions for Treatment How to access health informa tion online Indication:Neoplasm of uncertain behavior of skin Start:08-May-2016 Instruction Type:Patient Education How to access health informa tion online - Detail Indication:Neoplasm of uncertain behavior of skin Start:08-May-2016 Instruction Type:Patient Education Patient Instructions Indication:Neoplasm of uncertain behavior of skin Start:08-May-2016 Instruction Type:Provider Instructions for Treatment How to access health informa tion online Indication:BMI 38.0-38.9,adult Start:23-Apr-2016 Instruction Type:Patient Education How to access health informa tion online - Detail Indication:BMI 38.0-38.9,adult Start:23-Apr-2016 Instruction Type:Patient Education Patient Instructions Indication:BMI 38.0-38.9,adult Start:23-Apr-2016 Instruction Type:Provider Instructions for Treatment How to access health informa tion online Indication:Annual physical exam Start:17-Feb-2014 Instruction Type:Patient Education How to access health informa tion online - Detail Indication:Annual physical exam Start:17-Feb-2014 Instruction Type:Patient Education How to access health informa tion online Indication:Benign essential hypertension Start:02-Dec-2013 Instruction Type:Patient Education How to access health informa tion online - Detail Indication:Benign essential hypertension Start:02-Dec-2013 Instruction Type:Patient Education Patient Instructions Indication:Benign essential hypertension Start:02-Dec-2013 Instruction Type:Provider Instructions for Treatment Patient Instructions Indication:Benign essential hypertension Start:23-Sep-2012 Instruction Type:Provider Instructions for Treatment Patient Instructions Indication:Benign essential hypertension Start:13-Feb-2012 Instruction Type:Provider Instructions for Treatment Name Dates Details How to access health informa tion online Indication:Physical exam for work/school/camp (Renamed from Encounter for school health examination) Start:25-Feb-2019 Instruction Type:Patient Education How to access health informa tion online - Detail Indication:Physical exam for work/school/camp (Renamed from Encounter for school health examination) Start:25-Feb-2019 Instruction Type:Patient Education Patient Instructions Indication:Physical exam for work/school/camp (Renamed from Encounter for school health examination) Start:25-Feb-2019 Instruction Type:Provider Instructions for Treatment How to access health informa tion online Indication:Non-smoker Start:23-Feb-2019 Instruction Type:Patient Education How to access health informa tion online - Detail Indication:Non-smoker Start:23-Feb-2019 Instruction Type:Patient Education Patient Instructions Indication:Non-smoker Start:23-Feb-2019 Instruction Type:Provider Instructions for Treatment How to access health informa tion online Indication:Non-smoker Start:29-Jan-2019 Instruction Type:Patient Education How to access health informa tion online - Detail Indication:Non-smoker Start:29-Jan-2019 Instruction Type:Patient Education Patient Instructions Indication:Non-smoker Start:29-Jan-2019 Instruction Type:Provider Instructions for Treatment How to access health informa tion online Indication:Non-smoker Start:24-Sep-2018 Instruction Type:Patient Education How to access health informa tion online - Detail Indication:Non-smoker Start:24-Sep-2018 Instruction Type:Patient Education Patient Instructions Indication:Non-smoker Start:24-Sep-2018 Instruction Type:Provider Instructions for Treatment How to access health informa tion online Indication:BMI 35.0-35.9,adult Start:18-Jun-2018 Instruction Type:Patient Education How to access health informa tion online - Detail Indication:BMI 35.0-35.9,adult Start:18-Jun-2018 Instruction Type:Patient Education Patient Instructions Indication:BMI 35.0-35.9,adult Start:18-Jun-2018 Instruction Type:Provider Instructions for Treatment How to access health informa tion online Indication:Non-smoker Start:28-Apr-2018 Instruction Type:Patient Education How to access health informa tion online - Detail Indication:Non-smoker Start:28-Apr-2018 Instruction Type:Patient Education Patient Instructions Indication:Non-smoker Start:28-Apr-2018 Instruction Type:Provider Instructions for Treatment How to access health informa tion online Indication:Non-smoker Start:16-Apr-2018 Instruction Type:Patient Education How to access health informa tion online - Detail Indication:Non-smoker Start:16-Apr-2018 Instruction Type:Patient Education Patient Instructions Indication:Back pain, lumbosacral Start:16-Apr-2018 Instruction Type:Provider Instructions for Treatment How to access health informa tion online Indication:BMI 35.0-35.9,adult Start:26-Feb-2018 Instruction Type:Patient Education How to access health informa tion online - Detail Indication:BMI 35.0-35.9,adult Start:26-Feb-2018 Instruction Type:Patient Education Patient Instructions Indication:BMI 35.0-35.9,adult Start:26-Feb-2018 Instruction Type:Provider Instructions for Treatment How to access health informa tion online Indication:Nonsmoker Start:27-Feb-2017 Instruction Type:Patient Education How to access health informa tion online - Detail Indication:Nonsmoker Start:27-Feb-2017 Instruction Type:Patient Education Patient Instructions Indication:Nonsmoker Start:27-Feb-2017 Instruction Type:Provider Instructions for Treatment How to access health informa tion online Indication:Nonsmoker Start:06-Sep-2016 Instruction Type:Patient Education How to access health informa tion online - Detail Indication:Nonsmoker Start:06-Sep-2016 Instruction Type:Patient Education Patient Instructions Indication:Nonsmoker Start:06-Sep-2016 Instruction Type:Provider Instructions for Treatment How to access health informa tion online Indication:Neoplasm of uncertain behavior of skin Start:08-May-2016 Instruction Type:Patient Education How to access health informa tion online - Detail Indication:Neoplasm of uncertain behavior of skin Start:08-May-2016 Instruction Type:Patient Education Patient Instructions Indication:Neoplasm of uncertain behavior of skin Start:08-May-2016 Instruction Type:Provider Instructions for Treatment How to access health informa tion online Indication:BMI 38.0-38.9,adult Start:23-Apr-2016 Instruction Type:Patient Education How to access health informa tion online - Detail Indication:BMI 38.0-38.9,adult Start:23-Apr-2016 Instruction Type:Patient Education Patient Instructions Indication:BMI 38.0-38.9,adult Start:23-Apr-2016 Instruction Type:Provider Instructions for Treatment How to access health informa tion online Indication:Annual physical exam Start:17-Feb-2014 Instruction Type:Patient Education How to access health informa tion online - Detail Indication:Annual physical exam Start:17-Feb-2014 Instruction Type:Patient Education How to access health informa tion online Indication:Benign essential hypertension Start:02-Dec-2013 Instruction Type:Patient Education How to access health informa tion online - Detail Indication:Benign essential hypertension Start:02-Dec-2013 Instruction Type:Patient Education Patient Instructions Indication:Benign essential hypertension Start:02-Dec-2013 Instruction Type:Provider Instructions for Treatment Patient Instructions Indication:Benign essential hypertension Start:23-Sep-2012 Instruction Type:Provider Instructions for Treatment Patient Instructions Indication:Benign essential hypertension Start:13-Feb-2012 Instruction Type:Provider Instructions for Treatment Name Dates Details How to access health informa tion online Indication:Non-smoker Start:17-Sep-2019 Instruction Type:Patient Education How to access health informa tion online - Detail Indication:Non-smoker Start:17-Sep-2019 Instruction Type:Patient Education Patient Instructions Indication:Non-smoker Start:17-Sep-2019 Instruction Type:Provider Instructions for Treatment How to access health informa tion online Indication:BMI 35.0-35.9,adult Start:23-Jun-2019 Instruction Type:Patient Education How to access health informa tion online - Detail Indication:BMI 35.0-35.9,adult Start:23-Jun-2019 Instruction Type:Patient Education Patient Instructions Indication:BMI 35.0-35.9,adult Start:23-Jun-2019 Instruction Type:Provider Instructions for Treatment How to access health informa tion online Indication:Non-smoker Start:09-Mar-2019 Instruction Type:Patient Education How to access health informa tion online - Detail Indication:Non-smoker Start:09-Mar-2019 Instruction Type:Patient Education Patient Instructions Indication:Non-smoker Start:09-Mar-2019 Instruction Type:Provider Instructions for Treatment How to access health informa tion online Indication:Physical exam for work/school/camp (Renamed from Encounter for school health examination) Start:25-Feb-2019 Instruction Type:Patient Education How to access health informa tion online - Detail Indication:Physical exam for work/school/camp (Renamed from Encounter for school health examination) Start:25-Feb-2019 Instruction Type:Patient Education Patient Instructions Indication:Physical exam for work/school/camp (Renamed from Encounter for school health examination) Start:25-Feb-2019 Instruction Type:Provider Instructions for Treatment How to access health informa tion online Indication:Non-smoker Start:23-Feb-2019 Instruction Type:Patient Education How to access health informa tion online - Detail Indication:Non-smoker Start:23-Feb-2019 Instruction Type:Patient Education Patient Instructions Indication:Non-smoker Start:23-Feb-2019 Instruction Type:Provider Instructions for Treatment How to access health informa tion online Indication:Non-smoker Start:29-Jan-2019 Instruction Type:Patient Education How to access health informa tion online - Detail Indication:Non-smoker Start:29-Jan-2019 Instruction Type:Patient Education Patient Instructions Indication:Non-smoker Start:29-Jan-2019 Instruction Type:Provider Instructions for Treatment How to access health informa tion online Indication:Non-smoker Start:24-Sep-2018 Instruction Type:Patient Education How to access health informa tion online - Detail Indication:Non-smoker Start:24-Sep-2018 Instruction Type:Patient Education Patient Instructions Indication:Non-smoker Start:24-Sep-2018 Instruction Type:Provider Instructions for Treatment How to access health informa tion online Indication:BMI 35.0-35.9,adult Start:18-Jun-2018 Instruction Type:Patient Education How to access health informa tion online - Detail Indication:BMI 35.0-35.9,adult Start:18-Jun-2018 Instruction Type:Patient Education Patient Instructions Indication:BMI 35.0-35.9,adult Start:18-Jun-2018 Instruction Type:Provider Instructions for Treatment How to access health informa tion online Indication:Non-smoker Start:28-Apr-2018 Instruction Type:Patient Education How to access health informa tion online - Detail Indication:Non-smoker Start:28-Apr-2018 Instruction Type:Patient Education Patient Instructions Indication:Non-smoker Start:28-Apr-2018 Instruction Type:Provider Instructions for Treatment How to access health informa tion online Indication:Non-smoker Start:16-Apr-2018 Instruction Type:Patient Education How to access health informa tion online - Detail Indication:Non-smoker Start:16-Apr-2018 Instruction Type:Patient Education Patient Instructions Indication:Back pain, lumbosacral Start:16-Apr-2018 Instruction Type:Provider Instructions for Treatment How to access health informa tion online Indication:BMI 35.0-35.9,adult Start:26-Feb-2018 Instruction Type:Patient Education How to access health informa tion online - Detail Indication:BMI 35.0-35.9,adult Start:26-Feb-2018 Instruction Type:Patient Education Patient Instructions Indication:BMI 35.0-35.9,adult Start:26-Feb-2018 Instruction Type:Provider Instructions for Treatment How to access health informa tion online Indication:Nonsmoker Start:27-Feb-2017 Instruction Type:Patient Education How to access health informa tion online - Detail Indication:Nonsmoker Start:27-Feb-2017 Instruction Type:Patient Education Patient Instructions Indication:Nonsmoker Start:27-Feb-2017 Instruction Type:Provider Instructions for Treatment How to access health informa tion online Indication:Nonsmoker Start:06-Sep-2016 Instruction Type:Patient Education How to access health informa tion online - Detail Indication:Nonsmoker Start:06-Sep-2016 Instruction Type:Patient Education Patient Instructions Indication:Nonsmoker Start:06-Sep-2016 Instruction Type:Provider Instructions for Treatment How to access health informa tion online Indication:Neoplasm of uncertain behavior of skin Start:08-May-2016 Instruction Type:Patient Education How to access health informa tion online - Detail Indication:Neoplasm of uncertain behavior of skin Start:08-May-2016 Instruction Type:Patient Education Patient Instructions Indication:Neoplasm of uncertain behavior of skin Start:08-May-2016 Instruction Type:Provider Instructions for Treatment How to access health informa tion online Indication:BMI 38.0-38.9,adult Start:23-Apr-2016 Instruction Type:Patient Education How to access health informa tion online - Detail Indication:BMI 38.0-38.9,adult Start:23-Apr-2016 Instruction Type:Patient Education Patient Instructions Indication:BMI 38.0-38.9,adult Start:23-Apr-2016 Instruction Type:Provider Instructions for Treatment How to access health informa tion online Indication:Annual physical exam Start:17-Feb-2014 Instruction Type:Patient Education How to access health informa tion online - Detail Indication:Annual physical exam Start:17-Feb-2014 Instruction Type:Patient Education How to access health informa tion online Indication:Benign essential hypertension Start:02-Dec-2013 Instruction Type:Patient Education How to access health informa tion online - Detail Indication:Benign essential hypertension Start:02-Dec-2013 Instruction Type:Patient Education Patient Instructions Indication:Benign essential hypertension Start:02-Dec-2013 Instruction Type:Provider Instructions for Treatment Patient Instructions Indication:Benign essential hypertension Start:23-Sep-2012 Instruction Type:Provider Instructions for Treatment Patient Instructions Indication:Benign essential hypertension Start:13-Feb-2012 Instruction Type:Provider Instructions for Treatment Name Dates Details How to access health informa tion online Indication:Non-smoker Start:17-Sep-2019 Instruction Type:Patient Education How to access health informa tion online - Detail Indication:Non-smoker Start:17-Sep-2019 Instruction Type:Patient Education Patient Instructions Indication:Non-smoker Start:17-Sep-2019 Instruction Type:Provider Instructions for Treatment How to access health informa tion online Indication:BMI 35.0-35.9,adult Start:23-Jun-2019 Instruction Type:Patient Education How to access health informa tion online - Detail Indication:BMI 35.0-35.9,adult Start:23-Jun-2019 Instruction Type:Patient Education Patient Instructions Indication:BMI 35.0-35.9,adult Start:23-Jun-2019 Instruction Type:Provider Instructions for Treatment How to access health informa tion online Indication:Non-smoker Start:09-Mar-2019 Instruction Type:Patient Education How to access health informa tion online - Detail Indication:Non-smoker Start:09-Mar-2019 Instruction Type:Patient Education Patient Instructions Indication:Non-smoker Start:09-Mar-2019 Instruction Type:Provider Instructions for Treatment How to access health informa tion online Indication:Physical exam for work/school/camp (Renamed from Encounter for school health examination) Start:25-Feb-2019 Instruction Type:Patient Education How to access health informa tion online - Detail Indication:Physical exam for work/school/camp (Renamed from Encounter for school health examination) Start:25-Feb-2019 Instruction Type:Patient Education Patient Instructions Indication:Physical exam for work/school/camp (Renamed from Encounter for school health examination) Start:25-Feb-2019 Instruction Type:Provider Instructions for Treatment How to access health informa tion online Indication:Non-smoker Start:23-Feb-2019 Instruction Type:Patient Education How to access health informa tion online - Detail Indication:Non-smoker Start:23-Feb-2019 Instruction Type:Patient Education Patient Instructions Indication:Non-smoker Start:23-Feb-2019 Instruction Type:Provider Instructions for Treatment How to access health informa tion online Indication:Non-smoker Start:29-Jan-2019 Instruction Type:Patient Education How to access health informa tion online - Detail Indication:Non-smoker Start:29-Jan-2019 Instruction Type:Patient Education Patient Instructions Indication:Non-smoker Start:29-Jan-2019 Instruction Type:Provider Instructions for Treatment How to access health informa tion online Indication:Non-smoker Start:24-Sep-2018 Instruction Type:Patient Education How to access health informa tion online - Detail Indication:Non-smoker Start:24-Sep-2018 Instruction Type:Patient Education Patient Instructions Indication:Non-smoker Start:24-Sep-2018 Instruction Type:Provider Instructions for Treatment How to access health informa tion online Indication:BMI 35.0-35.9,adult Start:18-Jun-2018 Instruction Type:Patient Education How to access health informa tion online - Detail Indication:BMI 35.0-35.9,adult Start:18-Jun-2018 Instruction Type:Patient Education Patient Instructions Indication:BMI 35.0-35.9,adult Start:18-Jun-2018 Instruction Type:Provider Instructions for Treatment How to access health informa tion online Indication:Non-smoker Start:28-Apr-2018 Instruction Type:Patient Education How to access health informa tion online - Detail Indication:Non-smoker Start:28-Apr-2018 Instruction Type:Patient Education Patient Instructions Indication:Non-smoker Start:28-Apr-2018 Instruction Type:Provider Instructions for Treatment How to access health informa tion online Indication:Non-smoker Start:16-Apr-2018 Instruction Type:Patient Education How to access health informa tion online - Detail Indication:Non-smoker Start:16-Apr-2018 Instruction Type:Patient Education Patient Instructions Indication:Back pain, lumbosacral Start:16-Apr-2018 Instruction Type:Provider Instructions for Treatment How to access health informa tion online Indication:BMI 35.0-35.9,adult Start:26-Feb-2018 Instruction Type:Patient Education How to access health informa tion online - Detail Indication:BMI 35.0-35.9,adult Start:26-Feb-2018 Instruction Type:Patient Education Patient Instructions Indication:BMI 35.0-35.9,adult Start:26-Feb-2018 Instruction Type:Provider Instructions for Treatment How to access health informa tion online Indication:Nonsmoker Start:27-Feb-2017 Instruction Type:Patient Education How to access health informa tion online - Detail Indication:Nonsmoker Start:27-Feb-2017 Instruction Type:Patient Education Patient Instructions Indication:Nonsmoker Start:27-Feb-2017 Instruction Type:Provider Instructions for Treatment How to access health informa tion online Indication:Nonsmoker Start:06-Sep-2016 Instruction Type:Patient Education How to access health informa tion online - Detail Indication:Nonsmoker Start:06-Sep-2016 Instruction Type:Patient Education Patient Instructions Indication:Nonsmoker Start:06-Sep-2016 Instruction Type:Provider Instructions for Treatment How to access health informa tion online Indication:Neoplasm of uncertain behavior of skin Start:08-May-2016 Instruction Type:Patient Education How to access health informa tion online - Detail Indication:Neoplasm of uncertain behavior of skin Start:08-May-2016 Instruction Type:Patient Education Patient Instructions Indication:Neoplasm of uncertain behavior of skin Start:08-May-2016 Instruction Type:Provider Instructions for Treatment How to access health informa tion online Indication:BMI 38.0-38.9,adult Start:23-Apr-2016 Instruction Type:Patient Education How to access health informa tion online - Detail Indication:BMI 38.0-38.9,adult Start:23-Apr-2016 Instruction Type:Patient Education Patient Instructions Indication:BMI 38.0-38.9,adult Start:23-Apr-2016 Instruction Type:Provider Instructions for Treatment How to access health informa tion online Indication:Annual physical exam Start:17-Feb-2014 Instruction Type:Patient Education How to access health informa tion online - Detail Indication:Annual physical exam Start:17-Feb-2014 Instruction Type:Patient Education How to access health informa tion online Indication:Benign essential hypertension Start:02-Dec-2013 Instruction Type:Patient Education How to access health informa tion online - Detail Indication:Benign essential hypertension Start:02-Dec-2013 Instruction Type:Patient Education Patient Instructions Indication:Benign essential hypertension Start:02-Dec-2013 Instruction Type:Provider Instructions for Treatment Patient Instructions Indication:Benign essential hypertension Start:23-Sep-2012 Instruction Type:Provider Instructions for Treatment Patient Instructions Indication:Benign essential hypertension Start:13-Feb-2012 Instruction Type:Provider Instructions for Treatment Name Dates Details How to access health informa tion online Indication:Non-smoker Start:23-Feb-2020 Instruction Type:Patient Education How to access health informa tion online - Detail Indication:Non-smoker Start:23-Feb-2020 Instruction Type:Patient Education Patient Instructions Indication:Non-smoker Start:23-Feb-2020 Instruction Type:Provider Instructions for Treatment How to access health informa tion online Indication:Non-smoker Start:17-Sep-2019 Instruction Type:Patient Education How to access health informa tion online - Detail Indication:Non-smoker Start:17-Sep-2019 Instruction Type:Patient Education Patient Instructions Indication:Non-smoker Start:17-Sep-2019 Instruction Type:Provider Instructions for Treatment How to access health informa tion online Indication:BMI 35.0-35.9,adult Start:23-Jun-2019 Instruction Type:Patient Education How to access health informa tion online - Detail Indication:BMI 35.0-35.9,adult Start:23-Jun-2019 Instruction Type:Patient Education Patient Instructions Indication:BMI 35.0-35.9,adult Start:23-Jun-2019 Instruction Type:Provider Instructions for Treatment How to access health informa tion online Indication:Non-smoker Start:09-Mar-2019 Instruction Type:Patient Education How to access health informa tion online - Detail Indication:Non-smoker Start:09-Mar-2019 Instruction Type:Patient Education Patient Instructions Indication:Non-smoker Start:09-Mar-2019 Instruction Type:Provider Instructions for Treatment How to access health informa tion online Indication:Physical exam for work/school/camp (Renamed from Encounter for school health examination) Start:25-Feb-2019 Instruction Type:Patient Education How to access health informa tion online - Detail Indication:Physical exam for work/school/camp (Renamed from Encounter for school health examination) Start:25-Feb-2019 Instruction Type:Patient Education Patient Instructions Indication:Physical exam for work/school/camp (Renamed from Encounter for school health examination) Start:25-Feb-2019 Instruction Type:Provider Instructions for Treatment How to access health informa tion online Indication:Non-smoker Start:23-Feb-2019 Instruction Type:Patient Education How to access health informa tion online - Detail Indication:Non-smoker Start:23-Feb-2019 Instruction Type:Patient Education Patient Instructions Indication:Non-smoker Start:23-Feb-2019 Instruction Type:Provider Instructions for Treatment How to access health informa tion online Indication:Non-smoker Start:29-Jan-2019 Instruction Type:Patient Education How to access health informa tion online - Detail Indication:Non-smoker Start:29-Jan-2019 Instruction Type:Patient Education Patient Instructions Indication:Non-smoker Start:29-Jan-2019 Instruction Type:Provider Instructions for Treatment How to access health informa tion online Indication:Non-smoker Start:24-Sep-2018 Instruction Type:Patient Education How to access health informa tion online - Detail Indication:Non-smoker Start:24-Sep-2018 Instruction Type:Patient Education Patient Instructions Indication:Non-smoker Start:24-Sep-2018 Instruction Type:Provider Instructions for Treatment How to access health informa tion online Indication:BMI 35.0-35.9,adult Start:18-Jun-2018 Instruction Type:Patient Education How to access health informa tion online - Detail Indication:BMI 35.0-35.9,adult Start:18-Jun-2018 Instruction Type:Patient Education Patient Instructions Indication:BMI 35.0-35.9,adult Start:18-Jun-2018 Instruction Type:Provider Instructions for Treatment How to access health informa tion online Indication:Non-smoker Start:28-Apr-2018 Instruction Type:Patient Education How to access health informa tion online - Detail Indication:Non-smoker Start:28-Apr-2018 Instruction Type:Patient Education Patient Instructions Indication:Non-smoker Start:28-Apr-2018 Instruction Type:Provider Instructions for Treatment How to access health informa tion online Indication:Non-smoker Start:16-Apr-2018 Instruction Type:Patient Education How to access health informa tion online - Detail Indication:Non-smoker Start:16-Apr-2018 Instruction Type:Patient Education Patient Instructions Indication:Back pain, lumbosacral Start:16-Apr-2018 Instruction Type:Provider Instructions for Treatment How to access health informa tion online Indication:BMI 35.0-35.9,adult Start:26-Feb-2018 Instruction Type:Patient Education How to access health informa tion online - Detail Indication:BMI 35.0-35.9,adult Start:26-Feb-2018 Instruction Type:Patient Education Patient Instructions Indication:BMI 35.0-35.9,adult Start:26-Feb-2018 Instruction Type:Provider Instructions for Treatment How to access health informa tion online Indication:Nonsmoker Start:27-Feb-2017 Instruction Type:Patient Education How to access health informa tion online - Detail Indication:Nonsmoker Start:27-Feb-2017 Instruction Type:Patient Education Patient Instructions Indication:Nonsmoker Start:27-Feb-2017 Instruction Type:Provider Instructions for Treatment How to access health informa tion online Indication:Nonsmoker Start:06-Sep-2016 Instruction Type:Patient Education How to access health informa tion online - Detail Indication:Nonsmoker Start:06-Sep-2016 Instruction Type:Patient Education Patient Instructions Indication:Nonsmoker Start:06-Sep-2016 Instruction Type:Provider Instructions for Treatment How to access health informa tion online Indication:Neoplasm of uncertain behavior of skin Start:08-May-2016 Instruction Type:Patient Education How to access health informa tion online - Detail Indication:Neoplasm of uncertain behavior of skin Start:08-May-2016 Instruction Type:Patient Education Patient Instructions Indication:Neoplasm of uncertain behavior of skin Start:08-May-2016 Instruction Type:Provider Instructions for Treatment How to access health informa tion online Indication:BMI 38.0-38.9,adult Start:23-Apr-2016 Instruction Type:Patient Education How to access health informa tion online - Detail Indication:BMI 38.0-38.9,adult Start:23-Apr-2016 Instruction Type:Patient Education Patient Instructions Indication:BMI 38.0-38.9,adult Start:23-Apr-2016 Instruction Type:Provider Instructions for Treatment How to access health informa tion online Indication:Annual physical exam Start:17-Feb-2014 Instruction Type:Patient Education How to access health informa tion online - Detail Indication:Annual physical exam Start:17-Feb-2014 Instruction Type:Patient Education How to access health informa tion online Indication:Benign essential hypertension Start:02-Dec-2013 Instruction Type:Patient Education How to access health informa tion online - Detail Indication:Benign essential hypertension Start:02-Dec-2013 Instruction Type:Patient Education Patient Instructions Indication:Benign essential hypertension Start:02-Dec-2013 Instruction Type:Provider Instructions for Treatment Patient Instructions Indication:Benign essential hypertension Start:23-Sep-2012 Instruction Type:Provider Instructions for Treatment Patient Instructions Indication:Benign essential hypertension Start:13-Feb-2012 Instruction Type:Provider Instructions for Treatment Name Dates Details How to access health informa tion online Indication:Non-smoker Start:29-Jan-2019 Instruction Type:Patient Education How to access health informa tion online - Detail Indication:Non-smoker Start:29-Jan-2019 Instruction Type:Patient Education Patient Instructions Indication:Non-smoker Start:29-Jan-2019 Instruction Type:Provider Instructions for Treatment How to access health informa tion online Indication:Non-smoker Start:24-Sep-2018 Instruction Type:Patient Education How to access health informa tion online - Detail Indication:Non-smoker Start:24-Sep-2018 Instruction Type:Patient Education Patient Instructions Indication:Non-smoker Start:24-Sep-2018 Instruction Type:Provider Instructions for Treatment How to access health informa tion online Indication:BMI 35.0-35.9,adult Start:18-Jun-2018 Instruction Type:Patient Education How to access health informa tion online - Detail Indication:BMI 35.0-35.9,adult Start:18-Jun-2018 Instruction Type:Patient Education Patient Instructions Indication:BMI 35.0-35.9,adult Start:18-Jun-2018 Instruction Type:Provider Instructions for Treatment How to access health informa tion online Indication:Non-smoker Start:28-Apr-2018 Instruction Type:Patient Education How to access health informa tion online - Detail Indication:Non-smoker Start:28-Apr-2018 Instruction Type:Patient Education Patient Instructions Indication:Non-smoker Start:28-Apr-2018 Instruction Type:Provider Instructions for Treatment How to access health informa tion online Indication:Non-smoker Start:16-Apr-2018 Instruction Type:Patient Education How to access health informa tion online - Detail Indication:Non-smoker Start:16-Apr-2018 Instruction Type:Patient Education Patient Instructions Indication:Back pain, lumbosacral Start:16-Apr-2018 Instruction Type:Provider Instructions for Treatment How to access health informa tion online Indication:BMI 35.0-35.9,adult Start:26-Feb-2018 Instruction Type:Patient Education How to access health informa tion online - Detail Indication:BMI 35.0-35.9,adult Start:26-Feb-2018 Instruction Type:Patient Education Patient Instructions Indication:BMI 35.0-35.9,adult Start:26-Feb-2018 Instruction Type:Provider Instructions for Treatment How to access health informa tion online Indication:Nonsmoker Start:27-Feb-2017 Instruction Type:Patient Education How to access health informa tion online - Detail Indication:Nonsmoker Start:27-Feb-2017 Instruction Type:Patient Education Patient Instructions Indication:Nonsmoker Start:27-Feb-2017 Instruction Type:Provider Instructions for Treatment How to access health informa tion online Indication:Nonsmoker Start:06-Sep-2016 Instruction Type:Patient Education How to access health informa tion online - Detail Indication:Nonsmoker Start:06-Sep-2016 Instruction Type:Patient Education Patient Instructions Indication:Nonsmoker Start:06-Sep-2016 Instruction Type:Provider Instructions for Treatment How to access health informa tion online Indication:Neoplasm of uncertain behavior of skin Start:08-May-2016 Instruction Type:Patient Education How to access health informa tion online - Detail Indication:Neoplasm of uncertain behavior of skin Start:08-May-2016 Instruction Type:Patient Education Patient Instructions Indication:Neoplasm of uncertain behavior of skin Start:08-May-2016 Instruction Type:Provider Instructions for Treatment How to access health informa tion online Indication:BMI 38.0-38.9,adult Start:23-Apr-2016 Instruction Type:Patient Education How to access health informa tion online - Detail Indication:BMI 38.0-38.9,adult Start:23-Apr-2016 Instruction Type:Patient Education Patient Instructions Indication:BMI 38.0-38.9,adult Start:23-Apr-2016 Instruction Type:Provider Instructions for Treatment How to access health informa tion online Indication:Annual physical exam Start:17-Feb-2014 Instruction Type:Patient Education How to access health informa tion online - Detail Indication:Annual physical exam Start:17-Feb-2014 Instruction Type:Patient Education How to access health informa tion online Indication:Benign essential hypertension Start:02-Dec-2013 Instruction Type:Patient Education How to access health informa tion online - Detail Indication:Benign essential hypertension Start:02-Dec-2013 Instruction Type:Patient Education Patient Instructions Indication:Benign essential hypertension Start:02-Dec-2013 Instruction Type:Provider Instructions for Treatment Patient Instructions Indication:Benign essential hypertension Start:23-Sep-2012 Instruction Type:Provider Instructions for Treatment Patient Instructions Indication:Benign essential hypertension Start:13-Feb-2012 Instruction Type:Provider Instructions for Treatment Name Dates Details How to access health informa tion online Indication:Non-smoker Start:29-Jan-2019 Instruction Type:Patient Education How to access health informa tion online - Detail Indication:Non-smoker Start:29-Jan-2019 Instruction Type:Patient Education Patient Instructions Indication:Non-smoker Start:29-Jan-2019 Instruction Type:Provider Instructions for Treatment How to access health informa tion online Indication:Non-smoker Start:24-Sep-2018 Instruction Type:Patient Education How to access health informa tion online - Detail Indication:Non-smoker Start:24-Sep-2018 Instruction Type:Patient Education Patient Instructions Indication:Non-smoker Start:24-Sep-2018 Instruction Type:Provider Instructions for Treatment How to access health informa tion online Indication:BMI 35.0-35.9,adult Start:18-Jun-2018 Instruction Type:Patient Education How to access health informa tion online - Detail Indication:BMI 35.0-35.9,adult Start:18-Jun-2018 Instruction Type:Patient Education Patient Instructions Indication:BMI 35.0-35.9,adult Start:18-Jun-2018 Instruction Type:Provider Instructions for Treatment How to access health informa tion online Indication:Non-smoker Start:28-Apr-2018 Instruction Type:Patient Education How to access health informa tion online - Detail Indication:Non-smoker Start:28-Apr-2018 Instruction Type:Patient Education Patient Instructions Indication:Non-smoker Start:28-Apr-2018 Instruction Type:Provider Instructions for Treatment How to access health informa tion online Indication:Non-smoker Start:16-Apr-2018 Instruction Type:Patient Education How to access health informa tion online - Detail Indication:Non-smoker Start:16-Apr-2018 Instruction Type:Patient Education Patient Instructions Indication:Back pain, lumbosacral Start:16-Apr-2018 Instruction Type:Provider Instructions for Treatment How to access health informa tion online Indication:BMI 35.0-35.9,adult Start:26-Feb-2018 Instruction Type:Patient Education How to access health informa tion online - Detail Indication:BMI 35.0-35.9,adult Start:26-Feb-2018 Instruction Type:Patient Education Patient Instructions Indication:BMI 35.0-35.9,adult Start:26-Feb-2018 Instruction Type:Provider Instructions for Treatment How to access health informa tion online Indication:Nonsmoker Start:27-Feb-2017 Instruction Type:Patient Education How to access health informa tion online - Detail Indication:Nonsmoker Start:27-Feb-2017 Instruction Type:Patient Education Patient Instructions Indication:Nonsmoker Start:27-Feb-2017 Instruction Type:Provider Instructions for Treatment How to access health informa tion online Indication:Nonsmoker Start:06-Sep-2016 Instruction Type:Patient Education How to access health informa tion online - Detail Indication:Nonsmoker Start:06-Sep-2016 Instruction Type:Patient Education Patient Instructions Indication:Nonsmoker Start:06-Sep-2016 Instruction Type:Provider Instructions for Treatment How to access health informa tion online Indication:Neoplasm of uncertain behavior of skin Start:08-May-2016 Instruction Type:Patient Education How to access health informa tion online - Detail Indication:Neoplasm of uncertain behavior of skin Start:08-May-2016 Instruction Type:Patient Education Patient Instructions Indication:Neoplasm of uncertain behavior of skin Start:08-May-2016 Instruction Type:Provider Instructions for Treatment How to access health informa tion online Indication:BMI 38.0-38.9,adult Start:23-Apr-2016 Instruction Type:Patient Education How to access health informa tion online - Detail Indication:BMI 38.0-38.9,adult Start:23-Apr-2016 Instruction Type:Patient Education Patient Instructions Indication:BMI 38.0-38.9,adult Start:23-Apr-2016 Instruction Type:Provider Instructions for Treatment How to access health informa tion online Indication:Annual physical exam Start:17-Feb-2014 Instruction Type:Patient Education How to access health informa tion online - Detail Indication:Annual physical exam Start:17-Feb-2014 Instruction Type:Patient Education How to access health informa tion online Indication:Benign essential hypertension Start:02-Dec-2013 Instruction Type:Patient Education How to access health informa tion online - Detail Indication:Benign essential hypertension Start:02-Dec-2013 Instruction Type:Patient Education Patient Instructions Indication:Benign essential hypertension Start:02-Dec-2013 Instruction Type:Provider Instructions for Treatment Patient Instructions Indication:Benign essential hypertension Start:23-Sep-2012 Instruction Type:Provider Instructions for Treatment Patient Instructions Indication:Benign essential hypertension Start:13-Feb-2012 Instruction Type:Provider Instructions for Treatment Name Dates Details Patient Instructions Indication:Left hip pain Start:11-Sep-2020 Instruction Type:Provider Instructions for Treatment How to Access Health Informa tion Online using Patient Portal and [employer] Apps Indication:Left hip pain Start:11-Sep-2020 Instruction Type:Patient Education How to access health informa tion online Indication:Non-smoker Start:23-Feb-2020 Instruction Type:Patient Education How to access health informa tion online - Detail Indication:Non-smoker Start:23-Feb-2020 Instruction Type:Patient Education Patient Instructions Indication:Non-smoker Start:23-Feb-2020 Instruction Type:Provider Instructions for Treatment How to access health informa tion online Indication:Non-smoker Start:17-Sep-2019 Instruction Type:Patient Education How to access health informa tion online - Detail Indication:Non-smoker Start:17-Sep-2019 Instruction Type:Patient Education Patient Instructions Indication:Non-smoker Start:17-Sep-2019 Instruction Type:Provider Instructions for Treatment How to access health informa tion online Indication:BMI 35.0-35.9,adult Start:23-Jun-2019 Instruction Type:Patient Education How to access health informa tion online - Detail Indication:BMI 35.0-35.9,adult Start:23-Jun-2019 Instruction Type:Patient Education Patient Instructions Indication:BMI 35.0-35.9,adult Start:23-Jun-2019 Instruction Type:Provider Instructions for Treatment How to access health informa tion online Indication:Non-smoker Start:09-Mar-2019 Instruction Type:Patient Education How to access health informa tion online - Detail Indication:Non-smoker Start:09-Mar-2019 Instruction Type:Patient Education Patient Instructions Indication:Non-smoker Start:09-Mar-2019 Instruction Type:Provider Instructions for Treatment How to access health informa tion online Indication:Physical exam for work/school/camp (Renamed from Encounter for school health examination) Start:25-Feb-2019 Instruction Type:Patient Education How to access health informa tion online - Detail Indication:Physical exam for work/school/camp (Renamed from Encounter for school health examination) Start:25-Feb-2019 Instruction Type:Patient Education Patient Instructions Indication:Physical exam for work/school/camp (Renamed from Encounter for school health examination) Start:25-Feb-2019 Instruction Type:Provider Instructions for Treatment How to access health informa tion online Indication:Non-smoker Start:23-Feb-2019 Instruction Type:Patient Education How to access health informa tion online - Detail Indication:Non-smoker Start:23-Feb-2019 Instruction Type:Patient Education Patient Instructions Indication:Non-smoker Start:23-Feb-2019 Instruction Type:Provider Instructions for Treatment How to access health informa tion online Indication:Non-smoker Start:29-Jan-2019 Instruction Type:Patient Education How to access health informa tion online - Detail Indication:Non-smoker Start:29-Jan-2019 Instruction Type:Patient Education Patient Instructions Indication:Non-smoker Start:29-Jan-2019 Instruction Type:Provider Instructions for Treatment How to access health informa tion online Indication:Non-smoker Start:24-Sep-2018 Instruction Type:Patient Education How to access health informa tion online - Detail Indication:Non-smoker Start:24-Sep-2018 Instruction Type:Patient Education Patient Instructions Indication:Non-smoker Start:24-Sep-2018 Instruction Type:Provider Instructions for Treatment How to access health informa tion online Indication:BMI 35.0-35.9,adult Start:18-Jun-2018 Instruction Type:Patient Education How to access health informa tion online - Detail Indication:BMI 35.0-35.9,adult Start:18-Jun-2018 Instruction Type:Patient Education Patient Instructions Indication:BMI 35.0-35.9,adult Start:18-Jun-2018 Instruction Type:Provider Instructions for Treatment How to access health informa tion online Indication:Non-smoker Start:28-Apr-2018 Instruction Type:Patient Education How to access health informa tion online - Detail Indication:Non-smoker Start:28-Apr-2018 Instruction Type:Patient Education Patient Instructions Indication:Non-smoker Start:28-Apr-2018 Instruction Type:Provider Instructions for Treatment How to access health informa tion online Indication:Non-smoker Start:16-Apr-2018 Instruction Type:Patient Education How to access health informa tion online - Detail Indication:Non-smoker Start:16-Apr-2018 Instruction Type:Patient Education Patient Instructions Indication:Back pain, lumbosacral Start:16-Apr-2018 Instruction Type:Provider Instructions for Treatment How to access health informa tion online Indication:BMI 35.0-35.9,adult Start:26-Feb-2018 Instruction Type:Patient Education How to access health informa tion online - Detail Indication:BMI 35.0-35.9,adult Start:26-Feb-2018 Instruction Type:Patient Education Patient Instructions Indication:BMI 35.0-35.9,adult Start:26-Feb-2018 Instruction Type:Provider Instructions for Treatment How to access health informa tion online Indication:Nonsmoker Start:27-Feb-2017 Instruction Type:Patient Education How to access health informa tion online - Detail Indication:Nonsmoker Start:27-Feb-2017 Instruction Type:Patient Education Patient Instructions Indication:Nonsmoker Start:27-Feb-2017 Instruction Type:Provider Instructions for Treatment How to access health informa tion online Indication:Nonsmoker Start:06-Sep-2016 Instruction Type:Patient Education How to access health informa tion online - Detail Indication:Nonsmoker Start:06-Sep-2016 Instruction Type:Patient Education Patient Instructions Indication:Nonsmoker Start:06-Sep-2016 Instruction Type:Provider Instructions for Treatment How to access health informa tion online Indication:Neoplasm of uncertain behavior of skin Start:08-May-2016 Instruction Type:Patient Education How to access health informa tion online - Detail Indication:Neoplasm of uncertain behavior of skin Start:08-May-2016 Instruction Type:Patient Education Patient Instructions Indication:Neoplasm of uncertain behavior of skin Start:08-May-2016 Instruction Type:Provider Instructions for Treatment How to access health informa tion online Indication:BMI 38.0-38.9,adult Start:23-Apr-2016 Instruction Type:Patient Education How to access health informa tion online - Detail Indication:BMI 38.0-38.9,adult Start:23-Apr-2016 Instruction Type:Patient Education Patient Instructions Indication:BMI 38.0-38.9,adult Start:23-Apr-2016 Instruction Type:Provider Instructions for Treatment How to access health informa tion online Indication:Annual physical exam Start:17-Feb-2014 Instruction Type:Patient Education How to access health informa tion online - Detail Indication:Annual physical exam Start:17-Feb-2014 Instruction Type:Patient Education How to access health informa tion online Indication:Benign essential hypertension Start:02-Dec-2013 Instruction Type:Patient Education How to access health informa tion online - Detail Indication:Benign essential hypertension Start:02-Dec-2013 Instruction Type:Patient Education Patient Instructions Indication:Benign essential hypertension Start:02-Dec-2013 Instruction Type:Provider Instructions for Treatment Patient Instructions Indication:Benign essential hypertension Start:23-Sep-2012 Instruction Type:Provider Instructions for Treatment Patient Instructions Indication:Benign essential hypertension Start:13-Feb-2012 Instruction Type:Provider Instructions for Treatment Advance Directives No Advanced Directives Records Found Name Dates Details Living Will - Effective on . Expiration date unspecified. Scanned Document is available upon request. Effective:13-Feb-2021 Name Dates Details Living Will - Effective on . Expiration date unspecified. Scanned Document is available upon request. Effective:13-Feb-2021 Advance Directive Response Recorded Date/ Time Living Will Yes January 17 1:17pm Power of Assistant Media Planner Yes January 17, 021 1:17pm Name Dates Details Living Will - Effective on . Expiration date unspecified. Scanned Document is available upon request. Effective:13-Feb-2021 Name Dates Details Living Will - Effective on . Expiration date unspecified. Scanned Document is available upon request. Effective:13-Feb-2021 Name Dates Details Living Will - Effective on . Expiration date unspecified. Scanned Document is available upon request. Effective:13-Feb-2021 Name Dates Details Living Will - Effective on . Expiration date unspecified. Scanned Document is available upon request. Effective:13-Feb-2021 Name Dates Details Living Will - Effective on . Expiration date unspecified. Scanned Document is available upon request. Effective:13-Feb-2021 Advance Directive Response Recorded Date/ Time Living Will Yes January 17 12:17pm Power of Assistant Media Planner Yes January 17, 021 12:17pm Name Dates Details Living Will - Effective on . Expiration date unspecified. Scanned Document is available upon request. Effective:13-Feb-2021 Advance Directive Response Recorded Date/ Time Name of Medical Power of Assistant Media Planner July 18, 2022 9:15am Living Will Yes July 18, 023 9:15am Power of Assistant Media Planner Yes July 18, 2022 9:15am Name Dates Details Living Will - Effective on . Expiration date unspecified. Scanned Document is available upon request. Effective:13-Feb-2021 Name Dates Details Living Will - Effective on . Expiration date unspecified. Scanned Document is available upon request. Effective:13-Feb-2021 Advance Directive Response Recorded Date/ Time Living Will Yes August 19, 2022 10:18am Power of Assistant Media Planner Yes August 19 10:18am Name of Medical Power of Assistant Media Planner July 18, 2022 10:15am Name Dates Details Living Will - Effective on . Expiration date unspecified. Scanned Document is available upon request. Effective:13-Feb-2021 Name Dates Details Living Will - Effective on . Expiration date unspecified. Scanned Document is available upon request. Effective:13-Feb-2021 Name Dates Details Living Will - Effective on . Expiration date unspecified. Scanned Document is available upon request. Effective:13-Feb-2021 Name Dates Details Living Will - Effective on . Expiration date unspecified. Scanned Document is available upon request. Effective:13-Feb-2021 Name Dates Details Living Will - Effective on . Expiration date unspecified. Scanned Document is available upon request. Effective:13-Feb-2021 Advance Directive Response Recorded Date/ Time Living Will Yes August 19, 2022 10:18am Power of Assistant Media Planner Yes August 19 10:18am Name Dates Details Living Will - Effective on . Expiration date unspecified. Scanned Document is available upon request. Effective:13-Feb-2021 Name Dates Details Living Will - Effective on . Expiration date unspecified. Scanned Document is available upon request. Effective:13-Feb-2021 Name Dates Details Living Will - Effective on . Expiration date unspecified. Scanned Document is available upon request. Effective:13-Feb-2021 Advance Directive Response Recorded Date/ Time Living Will Yes August 19, 2022 9:18am Power of Assistant Media Planner Yes August 19 9:18am Family History No Family History Records Found Relationship Condition Age at Onset Recorded Date/T edilson mother Arthritis Unknown Migraine headache Unknown father Coronary artery disease Unknown History of coronary artery bypass surgery Unknown Arthritis Unknown Chief Complaint and Reason for Visit Chief Complaint LBP PORT FLUSH PORT FLUSH [employer] Reason for Visit Segmental and somati c dysfunction of lumbar region Segmental and somatic dysfunction of pelvic region Bulging lumbar disc Radiculopathy of lumbar region Segmental and somatic dysfunction of cervical region Chief Complaint PORT FLUSH [employer] Adjustment PORT FLUSH Reason for Visit Segmental and somati c dysfunction of lumbar region Segmental and somatic dysfunction of pelvic region Bulging lumbar disc Radiculopathy of lumbar region 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 Reason for Visit Segmental and somati c dysfunction of lumbar region Segmental and somatic dysfunction of pelvic region Bulging lumbar disc Radiculopathy of lumbar region Segmental and somatic dysfunction of lumbar region Segmental and somatic dysfunction of pelvic region Segmental and somatic dysfunction of thoracic region Bulging lumbar disc Chief Complaint SOMATIC AND SEGMENTA L DYSFUNCTION LUMBAR RX HERE PORT DRAW port flush Chief Complaint PORT DRAW port flush Back pain Reason for Visit Segmental and somati c dysfunction of cervical region Segmental and somatic dysfunction of lumbar region Segmental and somatic dysfunction of pelvic region Segmental and somatic dysfunction of thoracic region Bulging lumbar disc Back pain Chief Complaint port flush Back pain Back pain Malignant neoplasm of endometrium Back pain Reason for Visit Segmental and somati c dysfunction of cervical region Segmental and somatic dysfunction of lumbar region Segmental and somatic dysfunction of pelvic region Segmental and somatic dysfunction of thoracic region Bulging lumbar disc Back pain Segmental and somatic dysfunction of cervical region Segmental and somatic dysfunction of lumbar region Segmental and somatic dysfunction of pelvic region Segmental and somatic dysfunction of thoracic region Bulging lumbar disc Back pain Segmental and somatic dysfunction of cervical region Segmental and somatic dysfunction of lumbar region Segmental and somatic dysfunction of pelvic region Segmental and somatic dysfunction of thoracic region Bulging lumbar disc Back pain Chief Complaint port flush Back pain Back pain Malignant neoplasm of endometrium Back pain SHOULDER PAIN, HIP PAIN. RX HERE Reason for Visit Segmental and somati c dysfunction of cervical region Segmental and somatic dysfunction of lumbar region Segmental and somatic dysfunction of pelvic region Segmental and somatic dysfunction of thoracic region Bulging lumbar disc Back pain Segmental and somatic dysfunction of cervical region Segmental and somatic dysfunction of lumbar region Segmental and somatic dysfunction of pelvic region Segmental and somatic dysfunction of thoracic region Bulging lumbar disc Back pain Segmental and somatic dysfunction of cervical region Segmental and somatic dysfunction of lumbar region Segmental and somatic dysfunction of pelvic region Segmental and somatic dysfunction of thoracic region Bulging lumbar disc Back pain Chief Complaint port flush Back pain Back pain Malignant neoplasm of endometrium Back pain Back pain SHOULDER PAIN, HIP PAIN. RX HERE port flush Reason for Visit Segmental and somati c dysfunction of cervical region Segmental and somatic dysfunction of lumbar region Segmental and somatic dysfunction of pelvic region Segmental and somatic dysfunction of thoracic region Bulging lumbar disc Back pain Segmental and somatic dysfunction of cervical region Segmental and somatic dysfunction of lumbar region Segmental and somatic dysfunction of pelvic region Segmental and somatic dysfunction of thoracic region Bulging lumbar disc Back pain Segmental and somatic dysfunction of cervical region Segmental and somatic dysfunction of lumbar region Segmental and somatic dysfunction of pelvic region Segmental and somatic dysfunction of thoracic region Bulging lumbar disc Back pain Segmental and somatic dysfunction of cervical region Segmental and somatic dysfunction of lumbar region Segmental and somatic dysfunction of pelvic region Segmental and somatic dysfunction of thoracic region Bulging lumbar disc Back pain Chief Complaint port flush SHOULDER PAIN, HIP PAIN. RX HERE Back pain Back pain IT BAND TENDONITIS RX HERE Reason for Visit Segmental and somati c dysfunction of cervical region Segmental and somatic dysfunction of lumbar region Segmental and somatic dysfunction of pelvic region Segmental and somatic dysfunction of thoracic region Bulging lumbar disc Back pain Segmental and somatic dysfunction of cervical region Segmental and somatic dysfunction of lumbar region Segmental and somatic dysfunction of pelvic region Segmental and somatic dysfunction of thoracic region Bulging lumbar disc Back pain Chief Complaint port flush SHOULDER PAIN, HIP PAIN. RX HERE Back pain Back pain IT BAND TENDONITIS RX HERE PORT FLUSH Reason for Visit Segmental and somati c dysfunction of cervical region Segmental and somatic dysfunction of lumbar region Segmental and somatic dysfunction of pelvic region Segmental and somatic dysfunction of thoracic region Bulging lumbar disc Back pain Segmental and somatic dysfunction of cervical region Segmental and somatic dysfunction of lumbar region Segmental and somatic dysfunction of pelvic region Segmental and somatic dysfunction of thoracic region Bulging lumbar disc Back pain Chief Complaint SHOULDER PAIN, HIP P AIN. RX HERE Back pain Back pain IT BAND TENDONITIS RX HERE PORT FLUSH CATH BASILIA Reason for Visit Segmental and somati c dysfunction of cervical region Segmental and somatic dysfunction of lumbar region Segmental and somatic dysfunction of pelvic region Segmental and somatic dysfunction of thoracic region Bulging lumbar disc Back pain Segmental and somatic dysfunction of cervical region Segmental and somatic dysfunction of lumbar region Segmental and somatic dysfunction of pelvic region Segmental and somatic dysfunction of thoracic region Bulging lumbar disc Back pain Chief Complaint Admit Date SCREENING May 11, 2024 7:23am Back pain June 08, 2024 10 :31am E-ORDER June 15, 2024 2 :14pm BILATERAL KNEES July 07, 2024 8 :26am BACK PAIN July 26, 2024 10:57am Back pain August 03, 2024 9:01 am LEFT KNEE August 06, 2024 8:22 am PORT FLUSH August 09, 2024 2:2 4pm Reason for Visit Admit Date Segmental and somatic dysfunction of cer vical region June 08, 2024 10:31am Segmental and somatic dysfunction of lum bar region June 08, 2024 10:31am Segmental and somatic dysfunction of pel eunice region June 08, 2024 10:31am Segmental and somatic dysfunction of tho racic region June 08, 2024 10:31am Bulging lumbar disc June 08, 2024 10 :31am Osteoarthritis of knees, bilateral Febru shahid 2024 8:26am Segmental and somatic dysfunction of cer vical region July 26, 2024 10:57am Segmental and somatic dysfunction of lum bar region July 26, 2024 10:57am Segmental and somatic dysfunction of pel eunice region July 26, 2024 10:57am Segmental and somatic dysfunction of tho racic region July 26, 2024 10:57am Bulging lumbar disc July 26, 2024 10:57am Segmental and somatic dysfunction of lum bar region August 03, 2024 9:01am Segmental and somatic dysfunction of pel eunice region August 03, 2024 9:01am Segmental and somatic dysfunction of tho racic region August 03, 2024 9:01am Bulging lumbar disc August 03, 2024 9:01 am Back pain August 03, 2024 9:01 am Osteoarthritis of right knee August 06, 2024 8:22am Chief Complaint Admit Date SCREENING May 11, 2024 7:23am Back pain June 08, 2024 10 :31am E-ORDER June 15, 2024 2 :14pm BILATERAL KNEES July 07, 2024 8 :26am BACK PAIN July 26, 2024 10:57am Back pain August 03, 2024 9:01 am LEFT KNEE August 06, 2024 8:22 am PORT FLUSH August 09, 2024 2:2 4pm BACK PAIN August 10, 2024 10: 34am LEFT KNEE August 12, 2024 8:5 7am BACK PAIN August 17, 2024 8:4 9am LEFT KNEE August 20, 2024 8:5 7am CATH-BASILIA August 24, 2024 1:3 2pm Reason for Visit Admit Date Segmental and somatic dysfunction of cer vical region June 08, 2024 10:31am Segmental and somatic dysfunction of lum bar region June 08, 2024 10:31am Segmental and somatic dysfunction of pel eunice region June 08, 2024 10:31am Segmental and somatic dysfunction of tho racic region June 08, 2024 10:31am Bulging lumbar disc June 08, 2024 10 :31am Osteoarthritis of knees, bilateral Febru shahid 2024 8:26am Segmental and somatic dysfunction of cer vical region July 26, 2024 10:57am Segmental and somatic dysfunction of lum bar region July 26, 2024 10:57am Segmental and somatic dysfunction of pel eunice region July 26, 2024 10:57am Segmental and somatic dysfunction of tho racic region July 26, 2024 10:57am Bulging lumbar disc July 26, 2024 10:57am Segmental and somatic dysfunction of lum bar region August 03, 2024 9:01am Segmental and somatic dysfunction of pel eunice region August 03, 2024 9:01am Segmental and somatic dysfunction of tho racic region August 03, 2024 9:01am Bulging lumbar disc August 03, 2024 9:01 am Back pain August 03, 2024 9:01 am Osteoarthritis of right knee August 06, 2024 8:22am Segmental and somatic dysfunction of cer vical region August 10, 2024 10:34am Segmental and somatic dysfunction of lum bar region August 10, 2024 10:34am Segmental and somatic dysfunction of pel eunice region August 10, 2024 10:34am Segmental and somatic dysfunction of tho racic region August 10, 2024 10:34am Radiculopathy of lumbar region July 10:34am Osteoarthritis, localized, knee August 122024 8:57am Segmental and somatic dysfunction of cer vical region August 17, 2024 8:49am Segmental and somatic dysfunction of lum bar region August 17, 2024 8:49am Segmental and somatic dysfunction of pel eunice region August 17, 2024 8:49am Segmental and somatic dysfunction of tho racic region August 17, 2024 8:49am Bulging lumbar disc August 17, 2024 8:4 9am Localized osteoarthritis of left knee [facility] 2024 8:57am Chief Complaint Admit Date E-ORDER June 15, 2024 2 :14pm BILATERAL KNEES July 07, 2024 8 :26am BACK PAIN July 26, 2024 10:57am Back pain August 03, 2024 9:01 am LEFT KNEE August 06, 2024 8:22 am PORT FLUSH August 09, 2024 2:2 4pm BACK PAIN August 10, 2024 10: 34am LEFT KNEE August 12, 2024 8:5 7am BACK PAIN August 17, 2024 8:4 9am LEFT KNEE August 20, 2024 8:5 7am CATH-BASILIA August 24, 2024 1:3 2pm BACK PAIN September 07, 2024 9:26 am BACK PAIN October 05, 2024 9:59am Reason for Visit Admit Date Osteoarthritis of knees, bilateral Febru shahid 2024 8:26am Segmental and somatic dysfunction of cer vical region July 26, 2024 10:57am Segmental and somatic dysfunction of lum bar region July 26, 2024 10:57am Segmental and somatic dysfunction of pel eunice region July 26, 2024 10:57am Segmental and somatic dysfunction of tho racic region July 26, 2024 10:57am Bulging lumbar disc July 26, 2024 10:57am Segmental and somatic dysfunction of lum bar region August 03, 2024 9:01am Segmental and somatic dysfunction of pel eunice region August 03, 2024 9:01am Segmental and somatic dysfunction of tho racic region August 03, 2024 9:01am Bulging lumbar disc August 03, 2024 9:01 am Back pain August 03, 2024 9:01 am Osteoarthritis of right knee August 06, 2024 8:22am Segmental and somatic dysfunction of cer vical region August 10, 2024 10:34am Segmental and somatic dysfunction of lum bar region August 10, 2024 10:34am Segmental and somatic dysfunction of pel eunice region August 10, 2024 10:34am Segmental and somatic dysfunction of tho racic region August 10, 2024 10:34am Radiculopathy of lumbar region July 10:34am Localized osteoarthritis of left knee [facility] 2024 8:57am Osteoarthritis, localized, knee August 122024 8:57am Segmental and somatic dysfunction of cer vical region August 17, 2024 8:49am Segmental and somatic dysfunction of lum bar region August 17, 2024 8:49am Segmental and somatic dysfunction of pel eunice region August 17, 2024 8:49am Segmental and somatic dysfunction of tho racic region August 17, 2024 8:49am Bulging lumbar disc August 17, 2024 8:4 9am Localized osteoarthritis of left knee [facility] 2024 8:57am Segmental and somatic dysfunction of cer vical region September 07, 2024 9:26am Segmental and somatic dysfunction of lum bar region September 07, 2024 9:26am Segmental and somatic dysfunction of pel eunice region September 07, 2024 9:26am Segmental and somatic dysfunction of tho racic region September 07, 2024 9:26am Bulging lumbar disc September 07, 2024 9:26 am Back pain September 07, 2024 9:26 am Segmental and somatic dysfunction of lum bar region October 05, 2024 9:59am Segmental and somatic dysfunction of pel eunice region October 05, 2024 9:59am Segmental and somatic dysfunction of tho racic region October 05, 2024 9:59am Bulging lumbar disc October 05, 2024 9:59am Back pain October 05, 2024 9:59am Chief Complaint Admit Date BILATERAL KNEES July 07, 2024 8 :26am BACK PAIN July 26, 2024 10:57am Back pain August 03, 2024 9:01 am LEFT KNEE August 06, 2024 8:22 am PORT FLUSH August 09, 2024 2:2 4pm BACK PAIN August 10, 2024 10: 34am LEFT KNEE August 12, 2024 8:5 7am BACK PAIN August 17, 2024 8:4 9am LEFT KNEE August 20, 2024 8:5 7am CATH-BASILIA August 24, 2024 1:3 2pm BACK PAIN September 07, 2024 9:26 am BACK PAIN October 05, 2024 9:59am CONCERN FOR UTI October 30, 2024 8:25a m Chief Complaint Admit Date BILATERAL KNEES July 07, 2024 8 :26am BACK PAIN July 26, 2024 10:57am Back pain August 03, 2024 9:01 am LEFT KNEE August 06, 2024 8:22 am PORT FLUSH August 09, 2024 2:2 4pm BACK PAIN August 10, 2024 10: 34am LEFT KNEE August 12, 2024 8:5 7am BACK PAIN August 17, 2024 8:4 9am LEFT KNEE August 20, 2024 8:5 7am CATH-BASILIA August 24, 2024 1:3 2pm BACK PAIN September 07, 2024 9:26 am BACK PAIN October 05, 2024 9:59am CONCERN FOR UTI October 30, 2024 8:25a m LEFT KNEE November 04, 2024 8:57a m Reason for Visit Admit Date Osteoarthritis of knees, bilateral Febru shahid 2024 8:26am Segmental and somatic dysfunction of cer vical region July 26, 2024 10:57am Segmental and somatic dysfunction of lum bar region July 26, 2024 10:57am Segmental and somatic dysfunction of pel eunice region July 26, 2024 10:57am Segmental and somatic dysfunction of tho racic region July 26, 2024 10:57am Bulging lumbar disc July 26, 2024 10:57am Segmental and somatic dysfunction of lum bar region August 03, 2024 9:01am Segmental and somatic dysfunction of pel eunice region August 03, 2024 9:01am Segmental and somatic dysfunction of tho racic region August 03, 2024 9:01am Bulging lumbar disc August 03, 2024 9:01 am Back pain August 03, 2024 9:01 am Osteoarthritis of right knee August 06, 2024 8:22am Segmental and somatic dysfunction of cer vical region August 10, 2024 10:34am Segmental and somatic dysfunction of lum bar region August 10, 2024 10:34am Segmental and somatic dysfunction of pel eunice region August 10, 2024 10:34am Segmental and somatic dysfunction of tho racic region August 10, 2024 10:34am Radiculopathy of lumbar region July 10:34am Localized osteoarthritis of left knee [facility] 2024 8:57am Osteoarthritis, localized, knee August 122024 8:57am Segmental and somatic dysfunction of cer vical region August 17, 2024 8:49am Segmental and somatic dysfunction of lum bar region August 17, 2024 8:49am Segmental and somatic dysfunction of pel eunice region August 17, 2024 8:49am Segmental and somatic dysfunction of tho racic region August 17, 2024 8:49am Bulging lumbar disc August 17, 2024 8:4 9am Localized osteoarthritis of left knee [facility] 2024 8:57am Segmental and somatic dysfunction of cer vical region September 07, 2024 9:26am Segmental and somatic dysfunction of lum bar region September 07, 2024 9:26am Segmental and somatic dysfunction of pel eunice region September 07, 2024 9:26am Segmental and somatic dysfunction of tho racic region September 07, 2024 9:26am Bulging lumbar disc September 07, 2024 9:26 am Back pain September 07, 2024 9:26 am Segmental and somatic dysfunction of lum bar region October 05, 2024 9:59am Segmental and somatic dysfunction of pel eunice region October 05, 2024 9:59am Segmental and somatic dysfunction of tho racic region October 05, 2024 9:59am Bulging lumbar disc October 05, 2024 9:59am Back pain October 05, 2024 9:59am Acute cystitis with hematuria October 30, 2024 8:25am Chief Complaint Admit Date BACK PAIN July 26, 2024 10:57am Back pain August 03, 2024 9:01 am LEFT KNEE August 06, 2024 8:22 am PORT FLUSH August 09, 2024 2:2 4pm BACK PAIN August 10, 2024 10: 34am LEFT KNEE August 12, 2024 8:5 7am BACK PAIN August 17, 2024 8:4 9am LEFT KNEE August 20, 2024 8:5 7am CATH-BASILIA August 24, 2024 1:3 2pm BACK PAIN September 07, 2024 9:26 am BACK PAIN October 05, 2024 9:59am CONCERN FOR UTI October 30, 2024 8:25a m LEFT KNEE November 04, 2024 8:57a m Reason for Visit Admit Date Segmental and somatic dysfunction of cer vical region July 26, 2024 10:57am Segmental and somatic dysfunction of lum bar region July 26, 2024 10:57am Segmental and somatic dysfunction of pel eunice region July 26, 2024 10:57am Segmental and somatic dysfunction of tho racic region July 26, 2024 10:57am Bulging lumbar disc July 26, 2024 10:57am Segmental and somatic dysfunction of lum bar region August 03, 2024 9:01am Segmental and somatic dysfunction of pel eunice region August 03, 2024 9:01am Segmental and somatic dysfunction of tho racic region August 03, 2024 9:01am Bulging lumbar disc August 03, 2024 9:01 am Back pain August 03, 2024 9:01 am Osteoarthritis of right knee August 06, 2024 8:22am Segmental and somatic dysfunction of cer vical region August 10, 2024 10:34am Segmental and somatic dysfunction of lum bar region August 10, 2024 10:34am Segmental and somatic dysfunction of pel eunice region August 10, 2024 10:34am Segmental and somatic dysfunction of tho racic region August 10, 2024 10:34am Radiculopathy of lumbar region July 10:34am Localized osteoarthritis of left knee [facility] 2024 8:57am Osteoarthritis, localized, knee August 122024 8:57am Segmental and somatic dysfunction of cer vical region August 17, 2024 8:49am Segmental and somatic dysfunction of lum bar region August 17, 2024 8:49am Segmental and somatic dysfunction of pel eunice region August 17, 2024 8:49am Segmental and somatic dysfunction of tho racic region August 17, 2024 8:49am Bulging lumbar disc August 17, 2024 8:4 9am Localized osteoarthritis of left knee [facility] 2024 8:57am Segmental and somatic dysfunction of cer vical region September 07, 2024 9:26am Segmental and somatic dysfunction of lum bar region September 07, 2024 9:26am Segmental and somatic dysfunction of pel eunice region September 07, 2024 9:26am Segmental and somatic dysfunction of tho racic region September 07, 2024 9:26am Bulging lumbar disc September 07, 2024 9:26 am Back pain September 07, 2024 9:26 am Segmental and somatic dysfunction of lum bar region October 05, 2024 9:59am Segmental and somatic dysfunction of pel eunice region October 05, 2024 9:59am Segmental and somatic dysfunction of tho racic region October 05, 2024 9:59am Bulging lumbar disc October 05, 2024 9:59am Back pain October 05, 2024 9:59am Acute cystitis with hematuria October 30, 2024 8:25am Localized osteoarthritis of left knee Ju ne 2024 8:57am Obesity, class 2 November 04, 2024 8:57a m Osteoarthritis of right knee November 04 025 8:57am Chief Complaint Admit Date BACK PAIN September 07, 2024 9:26 am BACK PAIN October 05, 2024 9:59am CONCERN FOR UTI October 30, 2024 8:25a m LEFT KNEE November 04, 2024 8:57a m OBESITY December 06, 2024 2:59p m Reason for Visit Admit Date Segmental and somatic dysfunction of cer vical region September 07, 2024 9:26am Segmental and somatic dysfunction of lum bar region September 07, 2024 9:26am Segmental and somatic dysfunction of pel eunice region September 07, 2024 9:26am Segmental and somatic dysfunction of tho racic region September 07, 2024 9:26am Bulging lumbar disc September 07, 2024 9:26 am Back pain September 07, 2024 9:26 am Segmental and somatic dysfunction of lum bar region October 05, 2024 9:59am Segmental and somatic dysfunction of pel eunice region October 05, 2024 9:59am Segmental and somatic dysfunction of tho racic region October 05, 2024 9:59am Bulging lumbar disc October 05, 2024 9:59am Back pain October 05, 2024 9:59am Acute cystitis with hematuria October 30, 2024 8:25am Localized osteoarthritis of left knee Ju ne 2024 8:57am Obesity, class 2 November 04, 2024 8:57a m Osteoarthritis of right knee November 04 025 8:57am Chief Complaint Admit Date BACK PAIN October 05, 2024 9:59am CONCERN FOR UTI October 30, 2024 8:25a m LEFT KNEE November 04, 2024 8:57a m OBESITY December 06, 2024 2:59p m PORT FLUSH January 25, 2025 1: 27pm Reason for Visit Admit Date Segmental and somatic dysfunction of lum bar region October 05, 2024 9:59am Segmental and somatic dysfunction of pel eunice region October 05, 2024 9:59am Segmental and somatic dysfunction of tho racic region October 05, 2024 9:59am Bulging lumbar disc October 05, 2024 9:59am Back pain October 05, 2024 9:59am Acute cystitis with hematuria October 30, 2024 8:25am Localized osteoarthritis of left knee Ju ne 2024 8:57am Obesity, class 2 November 04, 2024 8:57a m Osteoarthritis of right knee November 04 8:57am Chief Complaint Admit Date CONCERN FOR UTI October 30, 2024 8:25a m LEFT KNEE November 04, 2024 8:57a m OBESITY December 06, 2024 2:59p m PORT FLUSH January 25, 2025 1: 27pm LEFT KNEE February 08, 2025 8:56am Reason for Visit Admit Date Acute cystitis with hematuria October 30, 2024 8:25am Localized osteoarthritis of left knee Ju 2024 8:57am Obesity, class 2 November 04, 2024 8:57a m Osteoarthritis of right knee November 04 8:57am Chief Complaint Admit Date CONCERN FOR UTI October 30, 2024 8:25a m LEFT KNEE November 04, 2024 8:57a m OBESITY December 06, 2024 2:59p m PORT FLUSH January 25, 2025 1: 27pm LEFT KNEE February 08, 2025 8:56am BACK PAIN February 16, 2025 9:58am Reason for Visit Admit Date Acute cystitis with hematuria October 30, 2024 8:25am Localized osteoarthritis of left knee Ju 2024 8:57am Obesity, class 2 November 04, 2024 8:57a m Osteoarthritis of right knee November 04 8:57am Localized osteoarthritis of left knee Se pt2024 8:56am Osteoarthritis of right knee February 082024 8:56am Segmental and somatic dysfunction of cer vical region February 16, 2025 9:58am Segmental and somatic dysfunction of lum bar region February 16, 2025 9:58am Segmental and somatic dysfunction of pel eunice region February 16, 2025 9:58am Segmental and somatic dysfunction of tho racic region February 16, 2025 9:58am Radiculopathy of lumbar region February 16, 2025 9:58am Back pain February 16, 2025 9:58am Summary Purpose Additional Source Comments Care Team (unrecognized sect ion and content) Team Status: Active Member Role Status Dates Dr. Charo Swenson , DO Family Provider Active Dr. Charo Swenson , DO Primary Care Provider Active Team Status: Inactive Member Role Status Dates Dr. Charo Swenson , DO Primary Care Provider, Referr ing Provider Active Dr. Batsheva Charles DC Attending Provider Active Team Status: Inactive Member Role Status Dates Dr. Charo Swenson , DO Primary Care Provider, Attend ing Provider Active Team Status: Inactive Member Role Status Dates Dr. Charo Swenson , DO Primary Care Pr ovider, Attending Provider, Referring Provider Active Team Status: Active Member Role Status Dates Dr. Charo Swenson , DO Primary Care Provider Active Health Risk Assessment Attending Provider, Referring P rovider Active Team Status: Active Member Role Status Dates Dr. Charo Swenson , DO Primary Care Provider Active Dr. Radha Mina MD Attending Provider, Referring P rovider Active Team Status: Inactive Member Role Status Dates Dr. Charo Swenson , DO Primary Care Provider Active Dr. Luiza Singh , DO Emergency Provider Active Team Status: Inactive Member Role Status Dates Dr. Charo Swenson , DO Primary Care Provider Active Dr. Radha Mina MD Attending Provider, Referring P rovider Active Team Status: Inactive Member Role Status Dates Dr. Charo Swenson , DO Primary Care Provider, Referr ing Provider Active Alexandru KELLEY, PA Attending Provider Active Team Status: Inactive Member Role Status Dates Dr. Charo Swenson , DO Primary Care Provider, Referr ing Provider Active Stephen Eastman PA, PA Attending Provider Active Team Status: Inactive Member Role Status Dates Dr. Charo Swenson , DO Primary Care Provider Active Dr. Luiza Singh , DO Attending Provider, Emergency P rovider Active Team Status: Inactive Member Role Status Dates Dr. Charo Swenson , DO Primary Care Provider Active Stephen Eastman PA, PA Attending Provider, Referring Pr ovider Active Team Status: Inactive Member Role Status Dates Dr. Charo Swenson , DO Primary Care Provider, Other Provider Active Dr. Batsheva Charles DC Attending Provider, Referring Pro vider Active Team Status: Active Member Role Status Dates Dr. Charo Swenson , DO Primary Care Provider Active Dr. Batsheva Charles DC Attending Provider, Referring Pro vider Active Team Status: Inactive Member Role Status Dates Dr. Charo Swenson , DO Primary Care Provider Active Dr. Radha Mina MD Attending Provider Active Team Status: Active Member Role Status Dates Dr. Charo Swenson DO Primary Care Provider Active Health Risk Assessment Attending Provider Active Team Status: Active Member Role Status Dates Dr. Charo Swenson DO Primary Care Pr ovider, Attending Provider, Referring Provider Active Team Status: Inactive Member Role Status Dates Dr. Charo Swenson DO Primary Care Provider Active RENETTA Espinoza Attending Provider, Referring Pro vider Active Team Status: Inactive Member Role Status Dates Dr. Charo Swenson DO Primary Care Provider Active RENETTA Espinoza Attending Provider Active Team Status: Inactive Member Role Status Dates Dr. Charo Swenson DO Primary Care Provider Active Dr. Lino Cuellar MD Attending Provider, Referring Pr ovider Active Team Status: Active Member Role Status Dates Dr. Charo Swenson DO Primary Care Provider Active Team Status: Inactive Member Role Status Dates Dr. Charo Swenson DO Primary Care Provider Active Start: April 15, 2024 End: April 15, 2024 Dr. Charo Swenson DO Attending Provider Active Start: April 15, 2024 End: April 15, 2024 Dr. Charo Swenson DO Referring Provider Active Start: April 15, 2024 End: April 15, 2024 Team Status: Inactive Member Role Status Dates Dr. Charo Swenson DO Primary Care Provider Active Start: May 11, 2024 End: May 11, 2024 Dr. Charo Swenson DO Attending Provider Active Start: May 11, 2024 End: May 11, 2024 Dr. Charo Swenson DO Referring Provider Active Start: May 11, 2024 End: May 11, 2024 Team Status: Inactive Member Role Status Dates Dr. Charo Swenson DO Primary Care Provider Active Start: June 08, 2024 End: June 08, 2024 Dr. Charo Swenson DO Referring Provider Active Start: June 08, 2024 End: June 08, 2024 Dr. Batsheva Charles DC Attending Provider Active S tart: June 08, 2024 End: June 08, 2024 Team Status: Inactive Member Role Status Dates Dr. Charo Swenson DO Primary Care Provider Active Start: June 15, 2024 End: June 15, 2024 Dr. Chace Pak DO Attending Provider Active Start: June 15, 2024 End: June 15, 2024 Dr. Chace Pak DO Referring Provider Active Start: June 15, 2024 End: June 15, 2024 Team Status: Inactive Member Role Status Dates Dr. Charo Swenson DO Primary Care Provider Active Start: July 07, 2024 End: July 07, 2024 Dr. Charo Swenson DO Referring Provider Active Start: July 07, 2024 End: July 07, 2024 Dr. Chace Pak DO Attending Provider Active Start: July 07, 2024 End: July 07, 2024 Team Status: Inactive Member Role Status Dates Dr. Charo Swenson DO Primary Care Provider Active Start: July 26, 2024 End: July 26, 2024 Dr. Charo Swenson DO Referring Provider Active Start: July 26, 2024 End: July 26, 2024 Dr. Batsheva Charles DC Attending Provider Active S tart: July 26, 2024 End: July 26, 2024 Team Status: Inactive Member Role Status Dates Dr. Charo Swenson DO Primary Care Provider Active Start: August 03, 2024 End: August 03, 2024 Dr. Charo Swenson DO Referring Provider Active Start: August 03, 2024 End: August 03, 2024 Dr. Batsheva Charles DC Attending Provider Active S tart: August 03, 2024 End: August 03, 2024 Team Status: Inactive Member Role Status Dates Dr. Charo Swenson DO Primary Care Provider Active Start: August 06, 2024 End: August 06, 2024 Dr. Charo Swenson DO Referring Provider Active Start: August 06, 2024 End: August 06, 2024 ROMEO Beck Attending Provider Active Start: August 06, 2024 End: August 06, 2024 Team Status: Inactive Member Role Status Dates Dr. Charo Swenson DO Primary Care Provider Active Start: August 09, 2024 End: August 09, 2024 ROMEO Smith Attending Provider Active S tart: August 09, 2024 End: August 09, 2024 ROMEO Smith Referring Provider Active S tart: August 09, 2024 End: August 09, 2024 Team Status: Inactive Member Role Status Dates Dr. Charo Swenosn DO Primary Care Provider Active Start: August 10, 2024 End: August 10, 2024 Dr. Charo Swenson DO Referring Provider Active Start: August 10, 2024 End: August 10, 2024 Dr. Batsheva Charles DC Attending Provider Active S tart: August 10, 2024 End: August 10, 2024 Team Status: Inactive Member Role Status Dates Dr. Charo Swenson DO Primary Care Provider Active Start: August 12, 2024 End: August 12, 2024 Dr. Charo Swenson DO Referring Provider Active Start: August 12, 2024 End: August 12, 2024 ROMEO Beck Attending Provider Active Start: August 12, 2024 End: August 12, 2024 Team Status: Inactive Member Role Status Dates Dr. Charo Swenson DO Primary Care Provider Active Start: August 17, 2024 End: August 17, 2024 Dr. Charo Swenson DO Referring Provider Active Start: August 17, 2024 End: August 17, 2024 Dr. Batsheva Charles DC Attending Provider Active S tart: August 17, 2024 End: August 17, 2024 Team Status: Inactive Member Role Status Dates Dr. Charo Swenson DO Primary Care Provider Active Start: August 20, 2024 End: August 20, 2024 Dr. Charo Swenson DO Referring Provider Active Start: August 20, 2024 End: August 20, 2024 ROMEO Beck Attending Provider Active Start: August 20, 2024 End: August 20, 2024 Team Status: Inactive Member Role Status Dates Dr. Charo Swenson DO Primary Care Provider Active Start: August 24, 2024 End: August 24, 2024 ROMEO Smith Attending Provider Active S tart: August 24, 2024 End: August 24, 2024 ROMEO Smith Referring Provider Active S tart: August 24, 2024 End: August 24, 2024 Team Status: Inactive Member Role Status Dates Dr. Charo Swenson DO Primary Care Provider Active Start: September 07, 2024 End: September 07, 2024 Dr. Charo Swenson DO Referring Provider Active Start: September 07, 2024 End: September 07, 2024 Dr. Batsheva Charles DC Attending Provider Active S tart: September 07, 2024 End: September 07, 2024 Team Status: Inactive Member Role Status Dates Dr. Charo Swenson DO Primary Care Provider Active Start: October 05, 2024 End: October 05, 2024 Dr. Charo Swenson DO Referring Provider Active Start: October 05, 2024 End: October 05, 2024 Dr. Batsheva Charles DC Attending Provider Active S tart: October 05, 2024 End: October 05, 2024 Team Status: Inactive Member Role Status Dates Dr. Charo Swenson DO Primary Care Provider Active Start: October 11, 2024 End: October 11, 2024 SOLEDAD, HALLUM Attending Provider Active Start: M ay 2024 End: October 11, 2024 SOLEDAD, HALLUM Referring Provider Active Start: M ay 2024 End: October 11, 2024 Team Status: Inactive Member Role Status Dates Dr. Charo Swenson DO Primary Care Provider Active Start: October 30, 2024 End: October 30, 2024 Dr. Charo Swenson DO Referring Provider Active Start: October 30, 2024 End: October 30, 2024 Lisa Omalley NP-C Attending Provider Active Start: October 30, 2024 End: October 30, 2024 Team Status: Active Member Role Status Dates Dr. Charo Swenson DO Primary Care Provider Active Start: November 01, 2024 Lisa Omalley MANAGER STORY-C Attending Provider Active Start: November 01, 2024 Team Status: Inactive Member Role Status Dates Dr. Charo Swenson DO Primary Care Provider Active Start: November 04, 2024 End: November 04, 2024 Dr. Charo Swenson DO Referring Provider Active Start: November 04, 2024 End: November 04, 2024 Karin Marks NP-C Attending Provider Active Start: November 04, 2024 End: November 04, 2024 Team Status: Inactive Member Role Status Dates Dr. Charo Swenson DO Primary Care Provider Active Start: November 01, 2024 End: November 01, 2024 Lisa Omalley MANAGER [employer]ORY-C Attending Provider Active Start: November 01, 2024 End: November 01, 2024 Team Status: Active Member Role/Relationship Status Dates Dr. Charo Swenson DO Primary Care Provider Active Team Status: Inactive Member Role/Relationship Status Dates Dr. Charo Swenson DO Primary Care Provider Active Start: September 07, 2024 End: September 07, 2024 Dr. Charo Swenson DO Referring Provider Active Start: September 07, 2024 End: September 07, 2024 Dr. Batsheva Charles DC Attending Provider Active S tart: September 07, 2024 End: September 07, 2024 Team Status: Inactive Member Role/Relationship Status Dates Dr. Charo Swenson DO Primary Care Provider Active Start: October 05, 2024 End: October 05, 2024 Dr. Charo Swenson DO Referring Provider Active Start: October 05, 2024 End: October 05, 2024 Dr. Batsheva Charles DC Attending Provider Active S tart: October 05, 2024 End: October 05, 2024 Team Status: Inactive Member Role/Relationship Status Dates Dr. Charo Swenson DO Primary Care Provider Active Start: October 11, 2024 End: October 11, 2024 SOLEDADITN Barnhart Attending Provider Active Start: M ay 2024 End: October 11, 2024 SOLEDAD, SCOTTIEUM Referring Provider Active Start: M ay 2024 End: October 11, 2024 Team Status: Inactive Member Role/Relationship Status Dates Dr. Charo Swenson DO Primary Care Provider Active Start: October 30, 2024 End: October 30, 2024 Dr. Charo Swenson DO Referring Provider Active Start: October 30, 2024 End: October 30, 2024 EDWARD GrossmanC Attending Provider Active Start: October 30, 2024 End: October 30, 2024 Team Status: Inactive Member Role/Relationship Status Dates Dr. Charo Swenson DO Primary Care Provider Active Start: November 01, 2024 End: November 01, 2024 ROMEO Grossman Attending Provider Active Start: November 01, 2024 End: November 01, 2024 Team Status: Inactive Member Role/Relationship Status Dates Dr. Charo Swenson DO Primary Care Provider Active Start: November 04, 2024 End: November 04, 2024 Dr. Charo Swenson DO Referring Provider Active Start: November 04, 2024 End: November 04, 2024 EDWARD BeckC Attending Provider Active Start: November 04, 2024 End: November 04, 2024 Team Status: Inactive Member Role/Relationship Status Dates Dr. Charo Swenson DO Primary Care Provider Active Start: December 06, 2024 End: December 30, 2024 ROMEO Beck Attending Provider Active Start: December 06, 2024 End: December 30, 2024 ROMEO Beck Referring Provider Active Start: December 06, 2024 End: December 30, 2024 Team Status: Inactive Member Role/Relationship Status Dates Dr. Charo Swenson DO Primary Care Provider Active Start: October 05, 2024 End: October 05, 2024 Dr. Charo Swenson DO Referring Provider Active Start: October 05, 2024 End: October 05, 2024 Dr. Batsheva Charles DC Attending Provider Active S tart: October 05, 2024 End: October 05, 2024 Team Status: Inactive Member Role/Relationship Status Dates Dr. Charo Swenson DO Primary Care Provider Active Start: October 11, 2024 End: October 11, 2024 TIN ROWE Attending Provider Active Start: M ay 2024 End: October 11, 2024 SOLEDADTIN Barnhart Referring Provider Active Start: M ay 2024 End: October 11, 2024 Team Status: Inactive Member Role/Relationship Status Dates Dr. Charo Swenson DO Primary Care Provider Active Start: October 30, 2024 End: October 30, 2024 Dr. Charo Swenson DO Referring Provider Active Start: October 30, 2024 End: October 30, 2024 ROMEO Grossman Attending Provider Active Start: October 30, 2024 End: October 30, 2024 Team Status: Inactive Member Role/Relationship Status Dates Dr. Charo Swenson DO Primary Care Provider Active Start: November 01, 2024 End: November 01, 2024 ROMEO Grossman Attending Provider Active Start: November 01, 2024 End: November 01, 2024 Team Status: Inactive Member Role/Relationship Status Dates Dr. Charo Swenson DO Primary Care Provider Active Start: November 04, 2024 End: November 04, 2024 Dr. Charo Swenson DO Referring Provider Active Start: November 04, 2024 End: November 04, 2024 ROMEO Beck Attending Provider Active Start: November 04, 2024 End: November 04, 2024 Team Status: Inactive Member Role/Relationship Status Dates Dr. Charo Swenson DO Primary Care Provider Active Start: December 06, 2024 End: December 30, 2024 ROMEO Beck Attending Provider Active Start: December 06, 2024 End: December 30, 2024 ROMEO Beck Referring Provider Active Start: December 06, 2024 End: December 30, 2024 Team Status: Inactive Member Role/Relationship Status Dates Dr. Charo Swenson DO Primary Care Provider Active Start: January 25, 2025 End: January 25, 2025 Whit Cuellar Attending Provider Active Start: January 25, 2025 End: January 25, 2025 Whit Cuellar Referring Provider Active Start: January 25, 2025 End: January 25, 2025 Team Status: Inactive Member Role/Relationship Status Dates Dr. Charo Swenson DO Primary Care Provider Active Start: October 11, 2024 End: October 11, 2024 SOLEDADTIN Barnhart Attending Provider Active Start: M ay 2024 End: October 11, 2024 SOLEDADTIN Barnhart Referring Provider Active Start: M ay 2024 End: October 11, 2024 Team Status: Inactive Member Role/Relationship Status Dates Dr. Charo Swenson DO Primary Care Provider Active Start: October 30, 2024 End: October 30, 2024 Dr. Charo Swenson DO Referring Provider Active Start: October 30, 2024 End: October 30, 2024 ROMEO Grossman Attending Provider Active Start: October 30, 2024 End: October 30, 2024 Team Status: Inactive Member Role/Relationship Status Dates Dr. Charo Swenson DO Primary Care Provider Active Start: November 01, 2024 End: November 01, 2024 ROMEO Grossman Attending Provider Active Start: November 01, 2024 End: November 01, 2024 Team Status: Inactive Member Role/Relationship Status Dates Dr. Charo Swenson DO Primary Care Provider Active Start: November 04, 2024 End: November 04, 2024 Dr. Charo Swenson DO Referring Provider Active Start: November 04, 2024 End: November 04, 2024 ROMEO Beck Attending Provider Active Start: November 04, 2024 End: November 04, 2024 Team Status: Inactive Member Role/Relationship Status Dates Dr. Charo Swenson DO Primary Care Provider Active Start: December 06, 2024 End: December 30, 2024 ROMEO Beck Attending Provider Active Start: December 06, 2024 End: December 30, 2024 ROMEO Beck Referring Provider Active Start: December 06, 2024 End: December 30, 2024 Team Status: Inactive Member Role/Relationship Status Dates Dr. Charo Swenson DO Primary Care Provider Active Start: January 25, 2025 End: January 25, 2025 Whit Cuellar Attending Provider Active Start: January 25, 2025 End: January 25, 2025 Whit Cuellar Referring Provider Active Start: January 25, 2025 End: January 25, 2025 Team Status: Inactive Member Role/Relationship Status Dates Dr. Charo Swenson DO Primary Care Provider Active Start: February 08, 2025 End: February 08, 2025 Dr. Charo Swenson DO Referring Provider Active Start: February 08, 2025 End: February 08, 2025 ROMEO Beck Attending Provider Active Start: February 08, 2025 End: February 08, 2025 Team Status: Active Member Role/Relationship Status Dates Dr. Charo Swenson DO Primary care physician Active Team Status: Inactive Member Role/Relationship Status Dates Dr. Charo Swenson DO Primary care physician Active Start: October 30, 2024 End: October 30, 2024 Dr. Charo Swenson DO Referring Provider Active Start: October 30, 2024 End: October 30, 2024 ROMEO Grossman Attending physician Active Start: October 30, 2024 End: October 30, 2024 Team Status: Inactive Member Role/Relationship Status Dates Dr. Charo Swenson DO Primary care physician Active Start: November 01, 2024 End: November 01, 2024 EDWARD GrossmanC Attending physician Active Start: November 01, 2024 End: November 01, 2024 Team Status: Inactive Member Role/Relationship Status Dates Dr. hCaro Swenson DO Primary care physician Active Start: November 04, 2024 End: November 04, 2024 Dr. Charo Swenson DO Referring Provider Active Start: November 04, 2024 End: November 04, 2024 ROMEO Beck Attending physician Active Start: November 04, 2024 End: November 04, 2024 Team Status: Inactive Member Role/Relationship Status Dates Dr. Charo Swenson DO Primary care physician Active Start: December 06, 2024 End: December 30, 2024 ROMEO Beck Attending physician Active Start: December 06, 2024 End: December 30, 2024 ROMEO Beck Referring Provider Active Start: December 06, 2024 End: December 30, 2024 Team Status: Inactive Member Role/Relationship Status Dates Dr. Charo Swenson DO Primary care physician Active Start: January 25, 2025 End: January 25, 2025 Whit Cuellar Attending physician Active Start: January 25, 2025 End: January 25, 2025 Whit Cuellar Referring Provider Active Start: January 25, 2025 End: January 25, 2025 Team Status: Inactive Member Role/Relationship Status Dates Dr. Charo Swenson DO Primary care physician Active Start: February 08, 2025 End: February 08, 2025 Dr. Charo Swenson DO Referring Provider Active Start: February 08, 2025 End: February 08, 2025 ROMEO Beck Attending physician Active Start: February 08, 2025 End: February 08, 2025 Team Status: Inactive Member Role/Relationship Status Dates Dr. Charo Swenson DO Primary care physician Active Start: February 16, 2025 End: February 16, 2025 Dr. Charo Swenson DO Referring Provider Active Start: February 16, 2025 End: February 16, 2025 Dr. Batsheva Charles , DAVID Attending physician Active Start: February 16, 2025 End: February 16, 2025 Care Team (unrecognized sect ion and content) Care Team Personnel Name: CHARO SWENSON DO Member Role: Primary Care Physician Address: Address: [address] [place] [address] [address] [place] [address]- [place] Name: MICHELLE CUELLAR DO Member Role: OBANN Address: Address: [address] [place] [address] [address] [place] [address]- [place] Name: RADHA MINA MD Position: P4 Oncology Provider Med Service: [facility] Infusion Therapy Member Role: Gynecologic Oncologist Address: Address: [address] [place] [address] Gynecologic Oncology [place], [place] [id number] Care Team Related Persons Name: STERLING ARREDONDO Care Team Personnel Name: LEELA CHARO Member Role: Primary Care Physician Address: Address: [address] [place] [address] [address] [place], [place] [address] Name: MICHELLE CUELLAR DO Member Role: OBGYN Address: Address: [address] [place] [address] [address] [place], [place] [address] Name: RADHA MINA MD Position: P4 Oncology Provider Member Role: Gynecologic Oncologist Address: Address: [address] [place] [address] Gynecologic Oncology [place], [place] [id number] Care Team Related Persons Name: STERLING ARREDONDO INFORMATION SOURCE (unrecogn ized section and content) DATE CREATED AUTHOR 09/05/2022 [facility] DATE CREATED AUTHOR AUTHOR'S ORGANIZ ATION 11/13/2023 [facility] ([place]) DATE CREATED AUTHOR AUTHOR'S ORGANIZ ATION 12/27/2024 [facility] DATE CREATED AUTHOR AUTHOR'S ORGANIZ ATION 02/25/2025 [facility] FOR RECORDS PERTAINING TO PATIENTS WHO ARE OR HAVE BEEN ENROLLED IN A CHEMICAL DEPENDENCY/SUBSTANCEABUSE PROGRAM, SOME INFORMATION MAY BE OMITTED. This clinical summary was aggregated from multiple sources. Caution should be exercised in using it in the provision of clinical care. This summary normalizes information from multiple sources, and as a consequence, information in this document may materially change the coding, format and clinical context of patient data. In addition, data may be omitted in some cases. CLINICAL DECISIONS SHOULD BE BASED ON THE PRIMARY CLINICAL RECORDS. [facility] [email or web address] provides no warranty or guarantee of the accuracy or completeness of information in this document.
== END | disposition home or self-care (01) ==
LOC: LAB 07:42
PROVIDERS: PCP Internal Medicine; Referring Provider Internal Medicine; Visit Provider Internal Medicine
DX: E55.9 Vitamin D deficiency, unspecified (principal); I10 Essential (primary) hypertension; E78.00 Pure hypercholesterolemia, unspecified; R73.09 Other abnormal glucose
CPT/HCPCS: 36415; 82043; 82306; 82570; 84443

== ENCOUNTER → 2025-05-06 | Outpatient (CLI) | payer OTHER, SELFPAY | END | disposition home or self-care (01) | LOC: LAB 08:37 | PROVIDERS: PCP Internal Medicine | DX: R73.9 Hyperglycemia, unspecified (principal) | CPT/HCPCS: 36415; 83036; 86304 ==

== ENCOUNTER → 2025-05-12 | Outpatient (CLI) | payer OTHER, SELFPAY ==
--- NOTE | 2025-05-12 07:53 | BI_ITS ---
EXAM: SCRN MAMM (CAD)W/WENCESLAO BILAT DATE: 05/12/2025 CLINICAL HISTORY: F, Age 65 y/o , SCREENING No family history. TECHNIQUE: Procedure Code: [id number] Modality: MG Procedure: SCRN MAMM (CAD)W/WENCESLAO BILAT COMPARISON: Prior exam(s) dated February 26, 2000 4.. FINDINGS: TISSUE DENSITY: There are scattered areas of fibroglandular density. Bilateral Breast Mammographic Findings: No significant masses, calcifications or other abnormalities are identified. No suspicious masses, areas of developing architectural distortion, or suspicious calcifications. There has been no significant interval change. BI/SCRN MAMM (CAD)W/WENCESLAO BILAT IMPRESSION: Stable bilateral screening mammogram. OVERALL FINAL ASSESSMENT BI-RADS 1: NEGATIVE. RECOMMENDATION: Routine annual follow-up in 1 Year Additional Recommendation none A letter with findings and recommendations will be mailed to the patient. Reading Location: [place] [id number]
--- NOTE | 2025-05-12 07:53 | BD_ITS ---
PROCEDURE: DEXA BONE DENSITY STUDY 05/12/2025 REASON FOR EXAM: F, age 65 y/o . Postmenopausal. TECHNIQUE: Procedure Code: BDDBD Modality: DX Procedure: DEXA BONE DENSITY STUDY COMPARISON: May 30, 2022 FINDINGS: BMD and T-SCORES Lumbar spine: 0.843 g/cm2, T-score -1.9 Levels: L1 through L4 Change from prior: Loss of 4.8%. Left femoral neck: 0.636 g/cm2, T-score -1.9 Femoral neck comparison data not recommended for monitoring change. Left total hip: 0.822 g/cm2, T-score -1.0 Change from prior: Loss of 11.6%. Right femoral neck: 0.701 g/cm2, T-score -1.3 Femoral neck comparison data not recommended for monitoring change. Right total hip: 0.868 g/cm2, T-score -0.6 Change from prior: Loss of 6.4%. The World Health Organization has defined the following categories based on bone density: Normal bone density: T-score equal to or greater than -1.0 Osteopenia: T-score between -1.0 and -2.5 Osteoporosis: T-score equal to or less than -2.5 FRAX (or Comparable) Fracture Risk Assessment: 10 Year Probability of Fracture: Major Osteoporotic Fracture: 9.3% Hip Fracture: 1.1% (Note: FRAX is not to be reported in setting of normal range bone density, osteoporosis on DEXA, known history of osteoporosis, prior osteoporotic hip or vertebral fracture, or for any patient undergoing pharmacological treatment for bone loss.) The National Osteoporosis Foundation (NOF) recommends pharmacological treatment for patients with a FRAX 10-year risk of 3% or higher for a hip fracture, or 20% or higher for a major osteoporotic fracture, to prevent osteoporosis and reduce fracture risk. The patient does meet the pharmacological treatment recommendations for prevention of osteoporosis. BD/Dexa Bone Density Study IMPRESSION: OSTEOPENIA. Recommend follow-up as clinically warranted. Reading Location: [place] [address]
== END | disposition home or self-care (01) ==
LOC: OPBD 07:51
PROVIDERS: PCP Internal Medicine; Referring Provider Internal Medicine; Visit Provider Internal Medicine
DX: Z12.31 Encounter for screening mammogram for malignant neoplasm of breast (principal); Z78.0 Asymptomatic menopausal state
CPT/HCPCS: 77063; 77067; 77080